=== PATIENT | male | born 1930 | race Caucasian/White ===

== ENCOUNTER → 2017-02-24 | Outpatient (CLI) | payer MEDICARE, OTHER ==
[2017-02-24 11:44] LABS: Basophils % (A) 1 %; CH 33.4; CHCM 31.3; Eosinophils # (A) 0.2 k/uL (0-0.7); Eosinophils % (A) 3 %; HCT 33.3 % (39.0-53.0); HDW 2.33; HGB 10.2 gm/dL (13.0-17.5); Luc # (Auto) 0.09; Luc % (Auto) 1; Lymphocytes # (A) 0.8 k/uL (1.0-4.8); Lymphocytes % (A) 11 %; MCHC 30.7 g/dL (31.0-37.0); MCV 107.4 fL (80.0-100.0); Macrocytosis Moderate; Mean Platelet Volume 7.3; Monocytes # (A) 0.6 k/uL (0-1.0); Monocytes % (A) 9 %; Neutrophils # (A) 5.1 k/uL (1.3-7.7); Neutrophils % (A) 75 %; RDW 13.3 % (11.5-15.5); WBC 6.8 k/uL (3.8-10.6); WBC (Perox) 7.23
[2017-02-24 11:59] LABS: Calcium 9.5 mg/dL (8.4-10.2); Potassium 5.1 mmol/L (3.5-5.1); Total Bilirubin 0.4 mg/dL (0.2-1.3); Total Protein 6.6 g/dL (6.3-8.2)
[2017-02-24 12:29] LABS: Prostate Specific Antigen 0.11 ng/mL (0.00-4.00)
== END | disposition home or self-care (01) ==
LOC: LABWHC1 09:57
PROVIDERS: ATTEND Physician Assistant Medical
DX: E78.5 Hyperlipidemia, unspecified (principal); D63.1 Anemia in chronic kidney disease; N18.3 Chronic kidney disease, stage 3 (moderate); I12.9 Hypertensive chronic kidney disease with stage 1 through stage 4 chronic kidney disease, or unspecified chronic kidney disease
CPT/HCPCS: 36415; 80053; 80061; 82607; 82728; 82746; 83540; 84153; 84443; 85025

== ENCOUNTER 2019-04-23 13:30 | Emergency (ER) | payer MEDICARE, OTHER ==
[2019-04-23 13:52] VITALS: RESP 18
--- NOTE | 2019-04-23 14:26 | ED ---
General Adult HPI - General Chief complaint: Shortness of Breath Stated complaint: Cough Time Seen by Provider: 04/23/19 13:45 Source: patient, RN notes reviewed, old records reviewed Mode of arrival: wheelchair Limitations: no limitations - History of Present Illness Initial comments: This is a 88-year-old male who presents emergency Department with a past history of atrial fibrillation. Patient comes in today because he told family members that he thinks he might have pneumonia again. Patient states hisbeen running quite a bit and occasionally he'll cough up some clear sputum. Patient denies any fever or chills. Patient states he is not short of breath even when he gets up and walks around. Patient states this is been ongoing for a few months. Patient states that he has some chest pain that is been constant for at least a month or 2. Patient denies any swelling to the legs or calf tenderness. Patient denies any lightheadedness or dizziness. - Related Data Previous Rx's Medication Instructions Recorded Loratadine [Claritin] 10 mg PO DAILY 7 Days tab 04/23/19 Allergies Allergy/AdvReac Type Severity Reaction Status Date / Time No Known Allergies Allergy Verified 04/23/19 13:52 Review of Systems ROS Statement: Those systems with pertinent positive or pertinent negative responses have been documented in the HPI. ROS Other: All systems not noted in ROS Statement are negative. Past Medical History Past Medical History: Atrial Fibrillation, Hypertension, Prostate Disorder History of Any Multi-Drug Resistant Organisms: MRSA Date of last positivie culture/infection: 2017 Past Surgical History: Appendectomy, Hernia Repair, Orthopedic Surgery, Prostate Surgery Additional Past Surgical History / Comment(s): knee surgery Past Psychological History: No Psychological Hx Reported Smoking Status: Former smoker Past Alcohol Use History: None Reported Past Drug Use History: None Reported General Exam - General Exam Comments Initial Comments: GENERAL: Patient is well-developed and well-nourished. Patient is nontoxic and well- hydrated and is in no acute distress. Patient's pulse ox is 100% on arrival into the room without oxygen ENT: Neck is soft and supple. No significant lymphadenopathy is noted. Oropharynx is clear. Moist mucous membranes. Neck has full range of motion without eliciting any pain. EYES: The sclera were anicteric and conjunctiva were pink and moist. Extraocular movements were intact and pupils were equal round and reactive to light. Eyelids were unremarkable. PULMONARY: Unlabored respirations. Good breath sounds bilaterally. No audible rales rhonchi or wheezing was noted. CARDIOVASCULAR: There is a regular rate and rhythm without any murmurs gallops or rubs. ABDOMEN: Soft and nontender with normal bowel sounds. SKIN: Skin is clear with no lesions or rashes and otherwise unremarkable. NEUROLOGIC: Patient is alert and oriented x3. Cranial nerves II through XII are grossly intact. Motor and sensory are also intact. Normal speech, volume and content. Symmetrical smile. MUSCULOSKELETAL: Normal extremities with adequate strength and full range of motion. No lower extremity swelling or edema. No calf tenderness. LYMPHATICS: No significant lymphadenopathy is noted PSYCHIATRIC: Normal psychiatric evaluation. Limitations: no limitations Course Vital Signs 04/23/19 04/23/19 13:42 14:36 Temperature 98 F Pulse Rate 67 96 Respiratory 18 18 Rate Blood Pressure 124/65 102/62 O2 Sat by Pulse 87 L 100 Oximetry Medical Decision Making - Medical Decision Making EKG shows sinus rhythm at 87 bpm [place] interval surrounding 200 QRS is 120 QT interval 354 QTC is 425. Patient is a right bundle ricarda block. Patient has no old EKG to compare to. Patient has Q waves in leads 3 and aVF - Lab Data Result diagrams: 04/23/19 14:15 04/23/19 14:15 Lab Results 04/23/19 04/23/19 04/23/19 Range/Units 14:15 14:15 14:15 WBC 7.8 (3.8-10.6) k/uL RBC 3.13 L (4.30-5.90) m/uL Hgb 10.3 L (13.0-17.5) gm/dL Hct 32.2 L (39.0-53.0) % MCV 103.0 H (80.0-100.0) fL MCH 32.8 (25.0-35.0) pg MCHC 31.9 (31.0-37.0) g/dL RDW 12.3 (11.5-15.5) % Plt Count 375 (150-450) k/uL Neutrophils % 86 % Lymphocytes % 8 % Monocytes % 4 % Eosinophils % 1 % Basophils % 0 % Neutrophils # 6.7 (1.3-7.7) k/uL Lymphocytes # 0.6 L (1.0-4.8) k/uL Monocytes # 0.3 (0-1.0) k/uL Eosinophils # 0.1 (0-0.7) k/uL Basophils # 0.0 (0-0.2) k/uL Macrocytosis Slight PT (9.0-12.0) sec INR (<1.2) APTT (22.0-30.0) sec D-Dimer (<0.60) mg/L FEU Sodium 141 (137-145) mmol/L Potassium 5.1 (3.5-5.1) mmol/L Chloride 110 H (98-107) mmol/L Carbon Dioxide 18 L (22-30) mmol/L Anion Gap 13 mmol/L BUN 58 H (9-20) mg/dL Creatinine 2.29 H (0.66-1.25) mg/dL Est GFR (CKD-EPI)AfAm 29 (>60 ml/min/1.73 sqM) Est GFR (CKD-EPI)NonAf 25 (>60 ml/min/1.73 sqM) Glucose 113 H (74-99) mg/dL Plasma Lactic Acid Santos 1.9 (0.7-2.0) mmol/L Calcium 9.4 (8.4-10.2) mg/dL Magnesium 2.1 (1.6-2.3) mg/dL Total Bilirubin 0.5 (0.2-1.3) mg/dL AST 19 (17-59) U/L ALT 9 (4-49) U/L Alkaline Phosphatase 103 (38-126) U/L Troponin I (0.000-0.034) ng/mL Total Protein 7.1 (6.3-8.2) g/dL Albumin 4.0 (3.5-5.0) g/dL 04/23/19 04/23/19 Range/Units 14:15 14:15 WBC (3.8-10.6) k/uL RBC (4.30-5.90) m/uL Hgb (13.0-17.5) gm/dL Hct (39.0-53.0) % MCV (80.0-100.0) fL MCH (25.0-35.0) pg MCHC (31.0-37.0) g/dL RDW (11.5-15.5) % Plt Count (150-450) k/uL Neutrophils % % Lymphocytes % % Monocytes % % Eosinophils % % Basophils % % Neutrophils # (1.3-7.7) k/uL Lymphocytes # (1.0-4.8) k/uL Monocytes # (0-1.0) k/uL Eosinophils # (0-0.7) k/uL Basophils # (0-0.2) k/uL Macrocytosis PT 10.0 (9.0-12.0) sec INR 1.0 (<1.2) APTT 24.0 (22.0-30.0) sec D-Dimer 0.60 H (<0.60) mg/L FEU Sodium (137-145) mmol/L Potassium (3.5-5.1) mmol/L Chloride (98-107) mmol/L Carbon Dioxide (22-30) mmol/L Anion Gap mmol/L BUN (9-20) mg/dL Creatinine (0.66-1.25) mg/dL Est GFR (CKD-EPI)AfAm (>60 ml/min/1.73 sqM) Est GFR (CKD-EPI)NonAf (>60 ml/min/1.73 sqM) Glucose (74-99) mg/dL Plasma Lactic Acid Santos (0.7-2.0) mmol/L Calcium (8.4-10.2) mg/dL Magnesium (1.6-2.3) mg/dL Total Bilirubin (0.2-1.3) mg/dL AST (17-59) U/L ALT (4-49) U/L Alkaline Phosphatase (38-126) U/L Troponin I 0.029 (0.000-0.034) ng/mL Total Protein (6.3-8.2) g/dL Albumin (3.5-5.0) g/dL Disposition Clinical Impression: Allergic rhinitis Disposition: HOME SELF-CARE Condition: Good Instructions (If sedation given, give patient instructions): Allergic Rhinitis (ED) Prescriptions: Loratadine [Claritin] 10 mg PO DAILY 7 Days tab Is patient prescribed a controlled substance at d/c from ED?: No Referrals: Dev Ramos MD [Primary Care Provider] - 1-2 days Time of Disposition: 16:34
[2019-04-23 14:45] LABS: Basophils % (A) 0 %; Eosinophils # (A) 0.1 k/uL (0-0.7); Eosinophils % (A) 1 %; HCT 32.2 % (39.0-53.0); HGB 10.3 gm/dL (13.0-17.5); Lymphocytes # (A) 0.6 k/uL (1.0-4.8); Lymphocytes % (A) 8 %; MCH 32.8 pg (25.0-35.0); MCHC 31.9 g/dL (31.0-37.0); Macrocytosis Slight; Monocytes # (A) 0.3 k/uL (0-1.0); Monocytes % (A) 4 %; Neutrophils # (A) 6.7 k/uL (1.3-7.7); Neutrophils % (A) 86 %; Platelet Count 375 k/uL (150-450); RBC 3.13 m/uL (4.30-5.90); RDW 12.3 % (11.5-15.5); WBC 7.8 k/uL (3.8-10.6)
--- NOTE | 2019-04-23 14:50 | XR ---
EXAMINATION TYPE: XR chest 2V DATE OF EXAM: 04/23/2019 COMPARISON: 04/23/2019 HISTORY: Difficulty breathing. TECHNIQUE: Frontal and lateral views of the chest are obtained. FINDINGS: Pulmonary hyperinflation relates underlying COPD. There is no focal air space opacity, pleu ral effusion, or pneumothorax seen. The cardiac silhouette size is within normal limits. There is to rtuosity of the descending thoracic aorta. The osseous structures are intact. Arthropathy of the lef t shoulder is advanced and mild degenerative change of the spine are seen. Diffuse osseous deminerali zation. IMPRESSION: No acute cardiopulmonary process. Underlying COPD.
[2019-04-23 14:54] LABS: Calcium 9.4 mg/dL (8.4-10.2); Magnesium 2.1 mg/dL (1.6-2.3); Potassium 5.1 mmol/L (3.5-5.1); Total Bilirubin 0.5 mg/dL (0.2-1.3); Total Protein 7.1 g/dL (6.3-8.2)
[2019-04-23 15:00] LABS: D-Dimer 0.6 mg/L FEU (<0.60)
[2019-04-23 17:06] VITALS: BP 122/78; PULSE 86; TEMP 97.6
== END 2019-04-23 17:06 | disposition home or self-care (01) ==
LOC: EC 13:30
DX: J30.9 Allergic rhinitis, unspecified (principal); I45.10 Unspecified right bundle-branch block; R07.9 Chest pain, unspecified; Z87.891 Personal history of nicotine dependence; Z86.14 Personal history of Methicillin resistant Staphylococcus aureus infection
CPT/HCPCS: 36415; 71046; 80053; 83605; 83735; 84484; 85025; 85379; 85610; 85730; 93005; 99285

== ENCOUNTER 2019-05-01 10:45 | Inpatient (IN) | payer OTHER, MEDICARE ==
[2019-05-01] MEDS ORDERED: SODIUM CHLORIDE 0.9% 1,000 ML IV STA ×2 (11:11)
--- NOTE | 2019-05-01 11:14 | ED ---
General Adult HPI - General Chief complaint: Recheck/Abnormal Lab/Rx Stated complaint: abnormal lab/kidney function Time Seen by Provider: 05/01/19 10:54 Source: patient, family, RN notes reviewed, old records reviewed Mode of arrival: wheelchair Limitations: no limitations - History of Present Illness Initial comments: This Patient is a pleasant 88-year-old male with chief complaint of abnormal lab values. Patient reports that he had blood work drawn yesterday at the OR and was called due to abnormal kidney function and elevated potassium level. Patient reports that he has no symptoms at this time. He reports he still is producing urine and had normal bowel movement today. He denies any pain with urination or dark or cloudy appearance. Patient states that he's had no fevers or chills. He was recently seen in the emergency department for cough and upper respiratory congestion. She reports that those symptoms have been resolving. Denies any lower extremity swelling. Denies any palpitations or chest pain. - Related Data Previous Rx's Medication Instructions Recorded Loratadine [Claritin] 10 mg PO DAILY 7 Days tab 04/23/19 Allergies Allergy/AdvReac Type Severity Reaction Status Date / Time No Known Allergies Allergy Verified 05/01/19 10:49 Review of Systems ROS Statement: Those systems with pertinent positive or pertinent negative responses have been documented in the HPI. ROS Other: All systems not noted in ROS Statement are negative. Past Medical History Past Medical History: Atrial Fibrillation, Hypertension, Prostate Disorder History of Any Multi-Drug Resistant Organisms: MRSA Date of last positivie culture/infection: 2017 Past Surgical History: Appendectomy, Hernia Repair, Orthopedic Surgery, Prostate Surgery Additional Past Surgical History / Comment(s): knee surgery Past Psychological History: No Psychological Hx Reported Smoking Status: Former smoker Past Alcohol Use History: None Reported Past Drug Use History: None Reported General Exam - General Exam Comments Initial Comments: 88-year-old male. Alert and oriented 3. Limitations: no limitations General appearance: alert, in no apparent distress Head exam: Present: atraumatic, normocephalic, normal inspection Eye exam: Present: normal appearance, PERRL, EOMI. Absent: scleral icterus, conjunctival injection, periorbital swelling ENT exam: Present: normal exam, mucous membranes moist Neck exam: Present: normal inspection. Absent: tenderness, meningismus, lymphadenopathy Respiratory exam: Present: normal lung sounds bilaterally. Absent: respiratory distress, wheezes, rales, rhonchi, stridor Cardiovascular Exam: Present: regular rate, normal rhythm, normal heart sounds. Absent: systolic murmur, diastolic murmur, rubs, gallop, clicks GI/Abdominal exam: Present: soft, normal bowel sounds. Absent: distended, tenderness, guarding, rebound, rigid Extremities exam: Present: normal inspection, full ROM, normal capillary refill. Absent: tenderness, pedal edema, joint swelling, calf tenderness Back exam: Present: normal inspection Neurological exam: Present: alert, oriented X3, CN II-XII intact Psychiatric exam: Present: normal affect, normal mood Skin exam: Present: warm, dry, intact, normal color. Absent: rash Course Vital Signs 05/01/19 05/01/19 10:49 13:00 Temperature 97.5 F L 97.1 F L Pulse Rate 106 H 83 Respiratory 18 17 Rate Blood Pressure 127/70 136/79 O2 Sat by Pulse 99 100 Oximetry Medical Decision Making - Medical Decision Making A 8-year-old male presents today for evaluation for abnormal lab results done by Dr. sher. He was called for elevated potassium. Patient's labs today show potassium of 5.3. He does have a decline in his renal function. Creatinine has increased to 2.6. Patient's urinalysis does show some concern for infection with numerous red blood cells and white blood cells. Urine culture be completed. Patient started on IV Rocephin at this time. I discussed case with Dr. Hutchison who discussed the case with his PCP Dr. Ramos. He recommended the Patient be admitted for further hydration and antibiotics. Patient's case was discussed with Dr. Palumbo. - Lab Data Result diagrams: 05/01/19 11:43 05/01/19 11:43 Lab Results 05/01/19 05/01/19 05/01/19 Range/Units 11:43 11:43 12:33 WBC 7.0 (3.8-10.6) k/uL RBC 2.90 L (4.30-5.90) m/uL Hgb 9.8 L (13.0-17.5) gm/dL Hct 29.9 L (39.0-53.0) % MCV 103.1 H (80.0-100.0) fL MCH 33.6 (25.0-35.0) pg MCHC 32.6 (31.0-37.0) g/dL RDW 12.5 (11.5-15.5) % Plt Count 357 (150-450) k/uL Neutrophils % 80 % Lymphocytes % 8 % Monocytes % 7 % Eosinophils % 3 % Basophils % 0 % Neutrophils # 5.6 (1.3-7.7) k/uL Lymphocytes # 0.6 L (1.0-4.8) k/uL Monocytes # 0.5 (0-1.0) k/uL Eosinophils # 0.2 (0-0.7) k/uL Basophils # 0.0 (0-0.2) k/uL Macrocytosis Slight Sodium 139 (137-145) mmol/L Potassium 5.3 H (3.5-5.1) mmol/L Chloride 113 H (98-107) mmol/L Carbon Dioxide 16 L (22-30) mmol/L Anion Gap 10 mmol/L BUN 61 H (9-20) mg/dL Creatinine 2.75 H (0.66-1.25) mg/dL Est GFR (CKD-EPI)AfAm 23 (>60 ml/min/1.73 sqM) Est GFR (CKD-EPI)NonAf 20 (>60 ml/min/1.73 sqM) Glucose 93 (74-99) mg/dL Calcium 9.1 (8.4-10.2) mg/dL Total Bilirubin 0.6 (0.2-1.3) mg/dL AST 19 (17-59) U/L ALT 9 (4-49) U/L Alkaline Phosphatase 102 (38-126) U/L Total Protein 6.9 (6.3-8.2) g/dL Albumin 3.5 (3.5-5.0) g/dL Urine Color Yellow Urine Appearance Turbid (Clear) Urine pH 6.0 (5.0-8.0) Ur Specific [place] 1.018 (1.001-1.035) Urine Protein 2+ H (Negative) Urine Glucose (UA) Negative (Negative) Urine Ketones Negative (Negative) Urine Blood Moderate H (Negative) Urine Nitrite Negative (Negative) Urine Bilirubin Negative (Negative) Urine Urobilinogen <2.0 (<2.0) mg/dL Ur Leukocyte Esterase Large H (Negative) Urine RBC 131 H (0-5) /hpf Urine WBC >182 H (0-5) /hpf Urine WBC Clumps Many H (None) /hpf Ur Squamous Epith Cells 3 (0-4) /hpf Urine Bacteria Many H (None) /hpf 05/01/19 11:33 EKG shows normal sinus rhythm with bundle-branch block. Possible inferior infarct age undetermined. Ventricular rate of 92 bpm. Intervals 200 ms. QRS duration is 124 ms. QT QTc is 370/457 ms. Disposition Clinical Impression: SAI (acute kidney injury), UTI (urinary tract infection) Disposition: ADMITTED IP TO THIS HOSP Condition: Stable Is patient prescribed a controlled substance at d/c from ED?: No Referrals: Dev Ramos MD [Primary Care Provider] - 1-2 days Time of Disposition: 13:34
[2019-05-01 12:07] LABS: Basophils % (A) 0 %; Eosinophils # (A) 0.2 k/uL (0-0.7); Eosinophils % (A) 3 %; HCT 29.9 % (39.0-53.0); HGB 9.8 gm/dL (13.0-17.5); Lymphocytes # (A) 0.6 k/uL (1.0-4.8); Lymphocytes % (A) 8 %; MCH 33.6 pg (25.0-35.0); MCHC 32.6 g/dL (31.0-37.0); MCV 103.1 fL (80.0-100.0); Macrocytosis Slight; Mean Platelet Volume 7.2; Monocytes # (A) 0.5 k/uL (0-1.0); Monocytes % (A) 7 %; Neutrophils # (A) 5.6 k/uL (1.3-7.7); Neutrophils % (A) 80 %; Platelet Count 357 k/uL (150-450); RDW 12.5 % (11.5-15.5)
[2019-05-01 12:12] LABS: Albumin 3.5 g/dL (3.5-5.0); Calcium 9.1 mg/dL (8.4-10.2); Potassium 5.3 mmol/L (3.5-5.1); Total Bilirubin 0.6 mg/dL (0.2-1.3); Total Protein 6.9 g/dL (6.3-8.2)
[2019-05-01 12:52] LABS: Appearance,Urine Turbid (Clear); Bacteria,Urine Many /hpf; Bilirubin,Urine Negative (Negative); Blood,Urine Moderate (Negative); Color,Urine Yellow; Glucose,Urine (UA) Negative (Negative); Ketones,Urine Negative (Negative); Leukocyte Esterase,Urine Large (Negative); Nitrite,Urine Negative (Negative); Protein,Urine 2+ (Negative); RBC,Urine 131 /hpf (0-5); Specific Gravity,Urine 1.018 (1.001-1.035); Squamous Epithelial Cell,Urine 3 /hpf (0-4); Urobilinogen,Urine <2.0 mg/dL (<2.0); WBC,Urine >182 /hpf (0-5)
[2019-05-01] MEDS ORDERED: cefTRIAXone IN SWFI 1,000 MG/10 ML SYRINGE IVP STA (13:00)
[2019-05-01] MEDS ORDERED: ONDANSETRON 4 MG/2 ML VIAL IVP PRN (13:34)
[2019-05-01] MEDS ORDERED: oxyCODONE-APAP 5-325MG 1 EACH TAB PO PRN (13:34)
[2019-05-01] MEDS ORDERED: ACETAMINOPHEN TAB 325 MG TAB PO PRN (13:34)
[2019-05-01] MEDS ORDERED: NALOXONE 0.4 MG/ML 1 ML VIAL IV PRN (13:34)
[2019-05-01] MEDS ORDERED: HYDROcodone/APAP 5-325MG 1 EACH TAB PO PRN (13:34)
--- NOTE | 2019-05-01 14:22 | US ---
EXAMINATION TYPE: US renals and bladder DATE OF EXAM: 05/01/2019 COMPARISON: NONE CLINICAL HISTORY: UTI, SAI. EXAM MEASUREMENTS: Right Kidney: 12.3 x 6.7 x 6.0 cm Left Kidney: 11.6 x 6.1 x 5.6 cm Right Kidney: severe hydronephrosis is present, probable cyst measuring 3.0 x 2.6 x 3.0cm, loss of normal parenchyma Left Kidney: severe hydronephrosis, loss of normal parenchyma Bladder: There is wall thickening No ascites IMPRESSION: Severe bilateral hydronephrosis, indeterminate bladder wall thickening
[2019-05-01] MEDS: SODIUM CHLORIDE 0.9% 1,000 ML IV SCH ×2 (15:21→21:19)
[2019-05-02] MEDS: METOPROLOL TARTRATE 25 MG TAB PO SCH ×2 (10:07→20:45)
[2019-05-02] MEDS: FLECAINIDE 50 MG TAB PO SCH ×2 (10:26→20:46)
[2019-05-02] MEDS: SODIUM CHLORIDE 0.9% 1,000 ML IV SCH ×2 (10:27→17:04)
[2019-05-02 11:15] LABS: Calcium 7.9 mg/dL (8.4-10.2); Potassium 5.3 mmol/L (3.5-5.1)
[2019-05-02 11:28] VITALS: BMI 19.8
--- NOTE | 2019-05-02 15:06 | P.HPIM ---
History of Present Illness H&P Date: 05/02/19 Chief Complaint: Abnormal labs This is an 88-year-old male patient of Dr. Ramos with past medical history of atrial fibrillation, hypertension, chronic kidney disease stage III, kidney stones, frequent urinary tract infections, benign prostatic hypertrophy, prostate cancer, previous history of urinary retention requiring [facility] catheter in the past. Patient is followed with a urologist in the past when he lived in [place] but none recently. Patient states that he has had increasing problems with urinary retention and urinary incontinence and utilizing to pull ups at the same time. He denies having any fever or chills. He denies having any dysuria or change in the color of his urine. He states he is tired. He was seen at the [place] [facility] and and due to abnormal lab reports with abnormal renal function and elevated potassium, patient was instructed to come in the hospital for further evaluation. Patient presented to [facility] emergency center for evaluation. Patient was afebrile and vital signs stable, hemoglobin 9.8, WBC 7, BUN 61 and creatinine 2.75, potassium 5.3, chloride 113, CO2 16, blood sugar 93. Urinalysis turbid, blood moderate, leukoesterase large, WBCs greater than 182, RBCs 131, WBC cults many, bacteria many. EKG was a sinus rhythm with bundle branch block. Renal ultrasound revealed bilateral severe hydronephrosis. Patient was admitted to the [facility] floor consults in place with urology. Review of Systems Constitutional: Reports fatigue, Reports poor appetite, Reports weakness, Denies anorexia, Denies chills, Denies fever, Denies lethargy, Denies malaise Eyes: denies blurred vision, denies pain Ears, nose, mouth and throat: Denies headache, Denies sore throat, Denies vertigo Cardiovascular: Denies chest pain, Denies decreased exercise tolerance, Denies dyspnea on exertion, Denies leg edema, Denies lightheadedness, Denies shortness of breath, Denies syncope Respiratory: Denies cough, Denies cough with sputum, Denies dyspnea, Denies excessive sputum, Denies hemoptysis, Denies home oxygen, Denies respiratory infections, Denies wheezing Gastrointestinal: Denies abdominal pain, Denies bloating, Denies diarrhea, Denies loss of appetite, Denies nausea, Denies vomiting Genitourinary: Reports incontinence, Reports urinary frequency, Reports urinary hesitancy, Reports urinary retention, Denies dysuria, Denies flank pain, Denies hematuria Musculoskeletal: Reports muscle weakness, Denies frequent falls, Denies gait dysfunction, Denies myalgias Integumentary: Denies pruritus, Denies rash, Denies wounds Neurological: Denies change in mentation, Denies change in speech, Denies numbness, Denies weakness Psychiatric: Denies anxiety, Denies depression Endocrine: Denies fatigue, Denies weight change Past Medical History Past Medical History: Atrial Fibrillation, Cancer, Hypertension, Prostate Disorder, Renal Disease Additional Past Medical History / Comment(s): Prosate cancer with radiation, kidney stones passed on his own and surgically removed, UTIs, chronic low back pain, occasional sinus problems. History of Any Multi-Drug Resistant Organisms: MRSA Date of last positivie culture/infection: 2017 MDRO Source:: urine? family/pt unsure Past Surgical History: Appendectomy, Hernia Repair, Orthopedic Surgery Additional Past Surgical History / Comment(s): Lithotripsy, hiatal hernia repair, L knee open surgery to "clean it out", colonoscopy, circumcism later in life d/t UTIs. Past Anesthesia/Blood Transfusion Reactions: No Reported Reaction Past Psychological History: No Psychological Hx Reported Additional Psychological History / Comment(s): Pt resides with his son. He uses a cane to ambulate. He no longer drives, his son takes him to appts. Son states that he, himself was recently hospitalized for a lengthy time and when he got back home, pt's meds were "screwed up". Smoking Status: Former smoker Past Alcohol Use History: None Reported Additional Past Alcohol Use History / Comment(s): Patient was a smoker one pack per day for 40 years and quit 35 years ago. He denies any alcohol use. Patient lives with his son. He uses a cane for ambulation. He denies any recent falls. Past Drug Use History: None Reported - Past Family History Father Family Medical History: Hypertension Additional Family Medical History / Comment(s): Father at age 82 from old age. Mother Additional Family Medical History / Comment(s): Mother at age 82 and was in a coma at the time. Patient is unsure of cause of her or causative coma. Brother(s) Additional Family Medical History / Comment(s): Patient has 1 brother that is . He is not know any of his medical history. Patient does not have any sisters. Patient has 4 daughters and 4 sons with no major medical problems. Medications and Allergies Home Medications Medication Instructions Recorded Confirmed Type Cranberry Fruit Extract [Cranberry] 200 mg PO DAILY 05/01/19 05/01/19 History Cyanocobalamin [Vitamin B-12] 500 mcg PO DAILY 05/01/19 05/01/19 History Flecainide Acetate 50 mg PO BID 05/01/19 05/01/19 History Magnesium Oxide 400 mg PO DAILY 05/01/19 05/01/19 History Metoprolol Tartrate [Lopressor] 25 mg PO BID 05/01/19 05/01/19 History Tamsulosin [Flomax] 0.4 mg PO DAILY 05/01/19 05/01/19 History Allergies Allergy/AdvReac Type Severity Reaction Status Date / Time No Known Allergies Allergy Verified 05/01/19 14:41 Physical Exam Vitals: Vital Signs Temp Pulse Pulse Pulse Resp BP BP 05/02/19 04:37 98.2 F 83 16 05/01/19 20:37 98.4 F 84 16 156/66 05/01/19 15:25 97.5 F L 55 L 16 158/93 05/01/19 13:00 97.1 F L 83 17 136/79 05/01/19 10:49 97.5 F L 106 H 18 127/70 BP Pulse Ox 05/02/19 04:37 107/49 96 05/01/19 20:37 99 05/01/19 15:25 98 05/01/19 13:00 100 05/01/19 10:49 99 Intake and Output 05/01/19 05/02/19 05/02/19 22:59 06:59 14:59 Output Total 50 Balance -50 Output: Urine 50 Other: Voiding Method Toilet Urinal # Voids 0 Weight 58.967 kg Gen: This is an 88-year-old thin male. Patient is resting bed appears comfortable and in no acute distress. HEENT: Head is atraumatic, normocephalic. Pupils equal, round. Sclerae is anicteric. NECK: Supple. No JVD. No lymphadenopathy. No thyromegaly. LUNGS: Clear to auscultation. No wheezes or rhonchi. No intercostal retractions. HEART: Regular rate and rhythm. No murmur. ABDOMEN: Soft. Bowel sounds are present. No masses. No tenderness. No flank tenderness. EXTREMITIES: No pedal edema. No calf tenderness. Dorsalis pedis palpable bilaterally. NEUROLOGICAL: Patient is awake, alert and oriented x3. Cranial nerves 2 through 12 are grossly intact. Results CBC & Chem 7: 05/01/19 11:43 05/02/19 10:34 Labs: Abnormal Lab Results - Last 24 Hours (Table) 05/01/19 05/01/19 05/01/19 Range/Units 11:43 11:43 12:33 RBC 2.90 L (4.30-5.90) m/uL Hgb 9.8 L (13.0-17.5) gm/dL Hct 29.9 L (39.0-53.0) % MCV 103.1 H (80.0-100.0) fL Lymphocytes # 0.6 L (1.0-4.8) k/uL Potassium 5.3 H (3.5-5.1) mmol/L Chloride 113 H (98-107) mmol/L Carbon Dioxide 16 L (22-30) mmol/L BUN 61 H (9-20) mg/dL Creatinine 2.75 H (0.66-1.25) mg/dL Plasma Lactic Acid Santos (0.7-2.0) mmol/L Urine Protein 2+ H (Negative) Urine Blood Moderate H (Negative) Ur Leukocyte Esterase Large H (Negative) Urine RBC 131 H (0-5) /hpf Urine WBC >182 H (0-5) /hpf Urine WBC Clumps Many H (None) /hpf Urine Bacteria Many H (None) /hpf 05/01/19 Range/Units 13:25 RBC (4.30-5.90) m/uL Hgb (13.0-17.5) gm/dL Hct (39.0-53.0) % MCV (80.0-100.0) fL Lymphocytes # (1.0-4.8) k/uL Potassium (3.5-5.1) mmol/L Chloride (98-107) mmol/L Carbon Dioxide (22-30) mmol/L BUN (9-20) mg/dL Creatinine (0.66-1.25) mg/dL Plasma Lactic Acid Satnos 0.6 L (0.7-2.0) mmol/L Urine Protein (Negative) Urine Blood (Negative) Ur Leukocyte Esterase (Negative) Urine RBC (0-5) /hpf Urine WBC (0-5) /hpf Urine WBC Clumps (None) /hpf Urine Bacteria (None) /hpf Microbiology - Last 24 Hours (Table) 05/01/19 12:33 Urine Culture - Preliminary Urine,Voided Thrombosis Risk Factor Assmnt - DVT/VTE Prophylaxis DVT/VTE Prophylaxis: Pharmacologic Prophylaxis ordered - Choose All That Apply Each Risk Factor Represents 3 Points: Age 75 years or older Thrombosis Risk Factor Assessment Total Risk Factor Score: 3 Thrombosis Risk Factor Assessment Level: Moderate Risk Assessment and Plan Plan: 1. Acute kidney injury secondary to severe bilateral hydronephrosis. Patient is currently on IV fluids at 100 mL per hour, consult with urology, continue Flomax 0.4 mg daily. Bladder scan, continue ceftriaxone, urine culture in progress. 2. History of prostate cancer, benign prostatic hypertrophy, patient previously had a [employer] catheter but none for years. Continue Flomax. 3. Atrial fibrillation, paroxysmal. Patient has been resumed on flecainide 50 mg twice daily, Lopressor 25 mg twice daily. Patient is not on anticoagulation. 4. Hypertension. Continue flecainide and Lopressor. 5. DVT prophylaxis. Heparin subcu. 6. GI prophylaxis. Pepcid. Patient will be admitted to the hospital for a minimum of 2 night stay. Discharge plan: To be determined. PT and OT. Impression and plan of care have been directed as dictated by the signing physician. Tena Silva nurse practitioner acting as scribe for signing physician.
--- NOTE | 2019-05-02 16:09 | P.GSCN ---
History of Present Illness Consult date: 05/02/19 Reason for Consult: Bilateral hydronephrosis History of present illness: Mr Franco is a 88-year-old male patient admitted to the hospital with acute kidney injury. Of note he has history of prostate cancer, per patient treated with radiation. He underwent Renal ultrasound revealed bilateral severe hydronephrosis. Of note he has have history of urinary retention requiring Kaiser catheter placement in the past. His PVR is 250 mL. He denies any obstructive voiding symptoms at baseline but indicates used to take Flomax in the past and he is no longer taking it. He is unsure why he stopped taking it. He does complain of urinary incontinence and is currently being managed by diapers. Denies any history of gross hematuria or kidney stones. He has seen Dr. Diana in the past Review of Systems - Constitutional Denies chills, Denies fever - Cardiovascular Reports leg edema, Denies shortness of breath - Gastrointestinal Denies abdominal pain, Denies nausea, Denies vomiting - Genitourinary Reports incontinence, Denies dysuria, Denies hematuria - Psychiatric Denies anxiety, Denies confusion - Endocrine Denies fatigue, Denies weight change Past Medical History Past Medical History: Atrial Fibrillation, Cancer, Hypertension, Prostate Disorder, Renal Disease Additional Past Medical History / Comment(s): Prosate cancer with radiation, kidney stones passed on his own and surgically removed, UTIs, chronic low back pain, occasional sinus problems. History of Any Multi-Drug Resistant Organisms: MRSA Year Discovered:: 2018 MDRO Source:: urine? family/pt unsure Past Surgical History: Appendectomy, Hernia Repair, Orthopedic Surgery Additional Past Surgical History / Comment(s): Lithotripsy, hiatal hernia repair, L knee open surgery to "clean it out", colonoscopy, circumcism later in life d/t UTIs. Past Anesthesia/Blood Transfusion Reactions: No Reported Reaction Past Psychological History: No Psychological Hx Reported Additional Psychological History / Comment(s): Pt resides with his son. He uses a cane to ambulate. He no longer drives, his son takes him to appts. Son states that he, himself was recently hospitalized for a lengthy time and when he got back home, pt's meds were "screwed up". Smoking Status: Former smoker Past Alcohol Use History: None Reported Additional Past Alcohol Use History / Comment(s): Patient was a smoker one pack per day for 40 years and quit 35 years ago. He denies any alcohol use. Patient lives with his son. He uses a cane for ambulation. He denies any recent falls. Past Drug Use History: None Reported - Past Family History Father Family Medical History: Hypertension Additional Family Medical History / Comment(s): Father at age 82 from old age. Mother Additional Family Medical History / Comment(s): Mother at age 82 and was in a coma at the time. Patient is unsure of cause of her or causative coma. Brother(s) Additional Family Medical History / Comment(s): Patient has 1 brother that is . He is not know any of his medical history. Patient does not have any sisters. Patient has 4 daughters and 4 sons with no major medical problems. Medications and Allergies Home Medications Medication Instructions Recorded Confirmed Type Cranberry Fruit Extract [Cranberry] 200 mg PO DAILY 05/01/19 05/01/19 History Cyanocobalamin [Vitamin B-12] 500 mcg PO DAILY 05/01/19 05/01/19 History Flecainide Acetate 50 mg PO BID 05/01/19 05/01/19 History Magnesium Oxide 400 mg PO DAILY 05/01/19 05/01/19 History Metoprolol Tartrate [Lopressor] 25 mg PO BID 05/01/19 05/01/19 History Tamsulosin [Flomax] 0.4 mg PO DAILY 05/01/19 05/01/19 History Allergies Allergy/AdvReac Type Severity Reaction Status Date / Time No Known Allergies Allergy Verified 05/01/19 14:41 Surgical - Exam Vital Signs Temp Pulse Resp BP Pulse Ox 97.5 F L 106 H 18 127/70 99 05/01/19 10:49 05/01/19 10:49 05/01/19 10:49 05/01/19 10:49 05/01/19 10:49 - General no distress, no pain - Respiratory normal expansion, normal respiratory effort - Abdomen Abdomen: soft, non tender, no distended - Neurologic normal sensation, no memory loss - Psychiatric oriented to time, oriented to person, oriented to place Results - Labs 05/01/19 11:43 05/02/19 10:34 Abnormal Lab Results - Last 24 Hours (Table) 05/02/19 Range/Units 10:34 Potassium 5.3 H (3.5-5.1) mmol/L Chloride 116 H (98-107) mmol/L Carbon Dioxide 14 L (22-30) mmol/L BUN 52 H (9-20) mg/dL Creatinine 2.32 H (0.66-1.25) mg/dL Glucose 104 H (74-99) mg/dL Calcium 7.9 L (8.4-10.2) mg/dL Microbiology - Last 24 Hours (Table) 05/01/19 13:25 Blood Culture - Preliminary Blood No Growth after 24 hours 05/01/19 12:33 Urine Culture - Preliminary Urine,Voided Diabetes panel 05/02/19 Range/Units 10:34 Sodium 137 (137-145) mmol/L Potassium 5.3 H (3.5-5.1) mmol/L Chloride 116 H (98-107) mmol/L Carbon Dioxide 14 L (22-30) mmol/L BUN 52 H (9-20) mg/dL Creatinine 2.32 H (0.66-1.25) mg/dL Glucose 104 H (74-99) mg/dL Calcium 7.9 L (8.4-10.2) mg/dL Calcium panel 05/02/19 Range/Units 10:34 Calcium 7.9 L (8.4-10.2) mg/dL Pituitary panel 05/02/19 Range/Units 10:34 Sodium 137 (137-145) mmol/L Potassium 5.3 H (3.5-5.1) mmol/L Chloride 116 H (98-107) mmol/L Carbon Dioxide 14 L (22-30) mmol/L BUN 52 H (9-20) mg/dL Creatinine 2.32 H (0.66-1.25) mg/dL Glucose 104 H (74-99) mg/dL Calcium 7.9 L (8.4-10.2) mg/dL Adrenal panel 05/02/19 Range/Units 10:34 Sodium 137 (137-145) mmol/L Potassium 5.3 H (3.5-5.1) mmol/L Chloride 116 H (98-107) mmol/L Carbon Dioxide 14 L (22-30) mmol/L BUN 52 H (9-20) mg/dL Creatinine 2.32 H (0.66-1.25) mg/dL Glucose 104 H (74-99) mg/dL Calcium 7.9 L (8.4-10.2) mg/dL Assessment and Plan Assessment: This is a 88-year-old male admitted to the hospital with acute kidney injury. Renal bladder ultrasound demonstrated bilateral hydronephrosis. This PVR is elevated at 250 mL. Of note he has history of prostate cancer, treated with radiation in the past. He also has history of LUTS, and previous history of urinary retention Plan: -Place Kaiser catheter -Continue Flomax -We'll obtain a CT abdomen and pelvis without contrast, to assess for the point of obstruction
--- NOTE | 2019-05-02 18:10 | CT ---
EXAMINATION TYPE: CT renal stones wo con DATE OF EXAM: 05/02/2019 COMPARISON: None HISTORY: stones, hydronephrosis CT DLP: 897 mGycm Automated exposure control for dose reduction was used. Multiple axial sections were obtained from the diaphragm to the floor the pelvis without contrast. There is some pleural thickening and atelectasis left lung base. Heart size is normal. There is no pe ricardial effusion. There is atherosclerotic vascular calcification. There is coronary artery calcifi cation. There is no pericardial effusion. There is mild hiatal hernia. There is small right pleural effusion. There are multiple calcified gallstones. Liver shows no focal defect. Spleen is intact. There is no evidence of pancreatic mass. The bile ducts are not dilated. Kidneys show severe bilateral hydronephrosis. There are multiple renal cortical cysts bilaterally marquez t measure up to 3.5 cm. There is bilateral hydroureter. There is Kaiser catheter in the urinary bladde r. Bladder is almost empty. There is no inguinal hernia. There is retained fecal material in the rect um that measures almost 7 cm. There is prostatic calcification. There is multilevel spondylotic changes in the lumbar spine. There is no compression fracture. There is disc space narrowing and vacuum disc with spur formation. The bony pelvis appears intact. There is no evidence of free air. There is no mesenteric edema. There is no ascites. IMPRESSION: Bilateral basilar pulmonary infiltrates and atelectasis and pleural thickening. The Cholelithiasis. Moderate bilateral hydronephrosis with renal atrophy. Bilateral hydroureter. No obstructing bladder mass identified. Rectal fecal impaction.
[2019-05-02] MEDS: HEPARIN SODIUM,PORCINE 5,000 UNIT/ML 1 ML VIAL SQ SCH (20:46)
[2019-05-02] MEDS: MELATONIN 5 MG TABLET PO SCH (23:23)
[2019-05-03] MEDS: SODIUM CHLORIDE 0.9% 1,000 ML IV SCH ×2 (02:10→07:13)
[2019-05-03] MEDS: FLECAINIDE 50 MG TAB PO SCH ×2 (07:11→22:49)
[2019-05-03] MEDS: TAMSULOSIN 0.4 MG CAP.ER.24H PO SCH (07:11)
[2019-05-03] MEDS: CYANOCOBALAMIN 500 MCG TAB PO SCH (07:11)
[2019-05-03] MEDS: METOPROLOL TARTRATE 25 MG TAB PO SCH ×2 (07:11→22:10)
[2019-05-03] MEDS: HEPARIN SODIUM,PORCINE 5,000 UNIT/ML 1 ML VIAL SQ SCH ×2 (07:12→22:12)
[2019-05-03] MEDS: FAMOTIDINE 20 MG TAB PO SCH (07:12)
[2019-05-03 08:32] LABS: Calcium 8.3 mg/dL (8.4-10.2)
[2019-05-03 08:39] LABS: Potassium 5.9 mmol/L (3.5-5.1)
--- NOTE | 2019-05-03 11:49 | P.PN ---
Subjective Progress Note Date: 05/03/19 This is an 88-year-old male patient of Dr. Ramos with past medical history of atrial fibrillation, hypertension, chronic kidney disease stage III, kidney stones, frequent urinary tract infections, benign prostatic hypertrophy, prostate cancer, previous history of urinary retention requiring Garza catheter in the past. Patient is followed with a urologist in the past when he lived in [place] but none recently. Patient states that he has had increasing problems with urinary retention and urinary incontinence and utilizing to pull ups at the same time. He denies having any fever or chills. He denies having any dysuria or change in the color of his urine. He states he is tired. He was seen at the [facility] and and due to abnormal lab reports with abnormal renal function and elevated potassium, patient was instructed to come in the hospital for further evaluation. Patient presented to [facility] emergency center for evaluation. Patient was afebrile and vital signs stable, hemoglobin 9.8, WBC 7, BUN 61 and creatinine 2.75, potassium 5.3, chloride 113, CO2 16, blood sugar 93. Urinalysis turbid, blood moderate, leukoesterase large, WBCs greater than 182, RBCs 131, WBC cults many, bacteria many. EKG was a sinus rhythm with bundle branch block. Renal ultrasound revealed bilateral severe hydronephrosis. Patient was admitted to the [facility] floor consults in place with urology. 05/03: Patient has been seen by urology and CAT scan renal has been ordered which showed moderate bilateral hydronephrosis with renal atrophy. No mass. Rectal fecal impaction. Patient has had a Garza catheter placed with blood-tinged and mucus return. Patient has been afebrile, heart rate 58, blood pressure 113/48, pulse ox 96% on room air. Sodium 138, potassium 5.9, chloride 118, CO2 14, BUN 45 creatinine 2.05. Urine culture strep agalactia group B. Blood culture no growth. Await further recommendations for him urology. Patient is complaining of insomnia and melatonin added. Review of Systems Constitutional: Reports fatigue, Reports poor appetite, Reports weakness, Denies anorexia, Denies chills, Denies fever, Denies lethargy, Denies malaise Eyes: denies blurred vision, denies pain. Patient hard of hearing. Ears, nose, mouth and throat: Denies headache, Denies sore throat, Denies vertigo Cardiovascular: Denies chest pain, Denies decreased exercise tolerance, Denies dyspnea on exertion, Denies leg edema, Denies lightheadedness, Denies shortness of breath, Denies syncope Respiratory: Denies cough, Denies cough with sputum, Denies dyspnea, Denies excessive sputum, Denies hemoptysis, Denies home oxygen, Denies respiratory infections, Denies wheezing Gastrointestinal: Denies abdominal pain, Denies bloating, Denies diarrhea, Denies loss of appetite, Denies nausea, Denies vomiting Genitourinary: Reports incontinence, Reports urinary frequency, Reports urinary hesitancy, Reports urinary retention-now with garza, Denies dysuria, Denies flank pain, Denies hematuria Musculoskeletal: Reports muscle weakness, Denies frequent falls, Denies gait dysfunction, Denies myalgias Integumentary: Denies pruritus, Denies rash, Denies wounds Neurological: Denies change in mentation, Denies change in speech, Denies numbness, Denies weakness Psychiatric: Denies anxiety, Denies depression. Reports insomnia Endocrine: Denies fatigue, Denies weight change Objective - Vital Signs Vital signs: Vital Signs Temp 98.5 F 05/03/19 05:28 Pulse 58 L 05/03/19 05:28 Resp 18 05/03/19 05:28 BP 113/48 05/03/19 05:28 Pulse Ox 96 05/03/19 05:28 Intake & Output 05/02/19 05/03/19 05/03/19 18:59 06:59 18:59 Intake Total 1040 725 Output Total 550 1150 Balance 490 -425 Weight 58.967 kg Intake: IV 800 Sodium Chloride 0.9% 1, 800 000 ml @ 100 mls/hr IV . Q10H [facility] Rx#:[id number] Oral 240 725 Output: Urine 500 1150 Uretheral (Garza) 500 Post Void Residual 50 Other: Voiding Method Indwelling Catheter Indwelling Catheter # Voids 2 # Bowel Movements 1 - Exam Gen: This is an 88-year-old thin male. Patient is resting bed appears comfortable and in no acute distress. HEENT: Head is atraumatic, normocephalic. Pupils equal, round. Sclerae is anicteric. NECK: Supple. No JVD. No lymphadenopathy. No thyromegaly. LUNGS: Clear to auscultation. No wheezes or rhonchi. No intercostal retractions. HEART: Regular rate and rhythm. No murmur. ABDOMEN: Soft. Bowel sounds are present. No masses. No tenderness. No flank tenderness. Garza catheter in place with return of blood-tinged urine with mucus pus. EXTREMITIES: No pedal edema. No calf tenderness. Dorsalis pedis palpable bilaterally. NEUROLOGICAL: Patient is awake, alert and oriented x3. Cranial nerves 2 through 12 are grossly intact. - Labs CBC & Chem 7: 05/01/19 11:43 05/03/19 07:27 Labs: Abnormal Lab Results - Last 24 Hours (Table) 05/03/19 Range/Units 07:27 Potassium 5.9 H (3.5-5.1) mmol/L Chloride 118 H (98-107) mmol/L Carbon Dioxide 14 L (22-30) mmol/L BUN 45 H (9-20) mg/dL Creatinine 2.04 H (0.66-1.25) mg/dL Calcium 8.3 L (8.4-10.2) mg/dL Microbiology - Last 24 Hours (Table) 05/01/19 12:33 Urine Culture - Final Urine,Voided Strep agalactiae - (group b) 05/01/19 13:25 Blood Culture - Preliminary Blood No Growth after 24 hours Assessment and Plan Plan: 1. Acute kidney injury secondary to moderate bilateral hydronephrosis. Patient is currently on IV fluids at 100 mL per hour, consult with urology appreciated, continue Flomax 0.4 mg daily. Garza catheter in place. CAT scan as above 2. History of prostate cancer, benign prostatic hypertrophy, patient previously had a Garza catheter but none for years. Continue Flomax. 3. Atrial fibrillation, paroxysmal. Patient has been resumed on flecainide 50 mg twice daily, Lopressor 25 mg twice daily. Patient is not on anticoagulation. 4. Hypertension. Continue flecainide and Lopressor. 5. DVT prophylaxis. Heparin subcu. 6. GI prophylaxis. Pepcid. 7. Strep acute urinary tract infection secondary to incontinence and hydronephrosis. Continue ceftriaxone. 8. Insomnia. Melatonin added. Discharge plan: To be determined. PT and OT. Impression and plan of care have been directed as dictated by the signing physician. Tena Silva nurse practitioner acting as scribe for signing physician.
[2019-05-03] MEDS ORDERED: FUROSEMIDE 10 MG/ML 4 ML VIAL IV STA (11:50)
--- NOTE | 2019-05-03 13:29 | P.PN ---
Subjective Progress Note Date: 05/03/19 Principal diagnosis: Urinary retention/Bilateral hydronephrosis Underwent CT yesterday which demonstrated bilateral hydronephrosis with transition at the bladder. Denies any flank pain. Tolerating a diet denies N/V Objective - Vital Signs Vital signs: Vital Signs Temp 98.5 F 05/03/19 05:28 Pulse 58 L 05/03/19 05:28 Resp 18 05/03/19 05:28 BP 113/48 05/03/19 05:28 Pulse Ox 96 05/03/19 05:28 Intake & Output 05/02/19 05/03/19 05/03/19 18:59 06:59 18:59 Intake Total 1040 725 Output Total 550 1150 Balance 490 -425 Weight 58.967 kg Intake: IV 800 Sodium Chloride 0.9% 1, 800 000 ml @ 100 mls/hr IV . Q10H [facility] Rx#:[id number] Oral 240 725 Output: Urine 500 1150 Uretheral (Garza) 500 Post Void Residual 50 Other: Voiding Method Indwelling Catheter Indwelling Catheter # Voids 2 # Bowel Movements 1 - Constitutional General appearance: Present: no acute distress, thin - Gastrointestinal General gastrointestinal: Present: soft. Absent: distended - Genitourinary Genitourinary Comment(s): Cloudy urine with significant bladder debris - Psychiatric Psychiatric: Present: A&O x's 3 - Labs CBC & Chem 7: 05/01/19 11:43 05/03/19 07:27 Labs: Abnormal Lab Results - Last 24 Hours (Table) 05/03/19 Range/Units 07:27 Potassium 5.9 H (3.5-5.1) mmol/L Chloride 118 H (98-107) mmol/L Carbon Dioxide 14 L (22-30) mmol/L BUN 45 H (9-20) mg/dL Creatinine 2.04 H (0.66-1.25) mg/dL Calcium 8.3 L (8.4-10.2) mg/dL Microbiology - Last 24 Hours (Table) 05/01/19 12:33 Urine Culture - Final Urine,Voided Strep agalactiae - (group b) 05/01/19 13:25 Blood Culture - Preliminary Blood No Growth after 24 hours Assessment and Plan Assessment: This is a 88-year-old male admitted to the hospital with acute kidney injury. Renal bladder ultrasound demonstrated bilateral hydronephrosis. CT demonstrated hydronephrosis, ureter dilated to the bladder. This PVR is elevated at 250 mL. Of note he has history of prostate cancer, treated with radiation in the past. He also has history of LUTS, and previous history of urinary retention. Creat tr ending down with garza Plan: -Continue flomax. He can be discharged on flomax -Start Ceftrixone as an inpatient, can be transitioned to PO abx at time of discharge -Discharge home with garza, Can f/u with Dr Diana in 7-10 days
[2019-05-03] MEDS ORDERED: INSULIN REGULAR 100 UNIT/ML VIAL IV ONE (13:37)
[2019-05-03] MEDS ORDERED: ALBUTEROL NEB (CONC) 2.5 MG/0.5 ML INHALATION ONE (13:37)
[2019-05-03] MEDS ORDERED: DEXTROSE 5% IN WATER 1,000 ML with SODIUM BICARB (1 MEQ/ML) 150 ML IV ONE (13:37)
[2019-05-03] MEDS ORDERED: SODIUM POLYSTYRENE SULFONATE 15 GM/60 ML BOTTLE PO ONE (13:37)
--- NOTE | 2019-05-03 13:43 | P.NPCON ---
History of Present Illness - Reason for Consult Consult date: 05/03/19 acute renal failure, hyperkalemia - Chief Complaint Abnormal labs - History of Present Illness 88-year-old gentleman coming to the hospital with abnormal wraps from the urology office. He has history of BPH and kidney stones, urinary urgency and retention. He presented to the urology office with the complaints and blood work shows potassium of 5.2 and he was referred to the hospital for further evaluation. CT renal showed bilateral hydronephrosis severe including renal ultrasound. No obvious stones or masses were identified. Kaiser catheter was placed he started making urine. Nephrology was consulted today because of worsening hyperkalemia. Urine output of 1700 ML's in the last 24 hours. Good urine output since morning. He got a dose of Lasix. No nausea vomiting diarrhea. No chest pain shortness of breath. Denies taking NSAID use or recent contrast studies. Review of Systems Constitutional: Reports as per HPI Past Medical History Past Medical History: Atrial Fibrillation, Cancer, Hypertension, Prostate Disorder, Renal Disease Additional Past Medical History / Comment(s): Prosate cancer with radiation, kidney stones passed on his own and surgically removed, UTIs, chronic low back pain, occasional sinus problems. History of Any Multi-Drug Resistant Organisms: MRSA Date of last positivie culture/infection: 2017 MDRO Source:: urine? family/pt unsure Past Surgical History: Appendectomy, Hernia Repair, Orthopedic Surgery Additional Past Surgical History / Comment(s): Lithotripsy, hiatal hernia repair, L knee open surgery to "clean it out", colonoscopy, circumcism later in life d/t UTIs. Past Anesthesia/Blood Transfusion Reactions: No Reported Reaction Past Psychological History: No Psychological Hx Reported Additional Psychological History / Comment(s): Pt resides with his son. He uses a cane to ambulate. He no longer drives, his son takes him to appts. Son states that he, himself was recently hospitalized for a lengthy time and when he got back home, pt's meds were "screwed up". Smoking Status: Former smoker Past Alcohol Use History: None Reported Additional Past Alcohol Use History / Comment(s): Patient was a smoker one pack per day for 40 years and quit 35 years ago. He denies any alcohol use. Patient lives with his son. He uses a cane for ambulation. He denies any recent falls. Past Drug Use History: None Reported - Past Family History Father Family Medical History: Hypertension Additional Family Medical History / Comment(s): Father at age 82 from old age. Mother Additional Family Medical History / Comment(s): Mother at age 82 and was in a coma at the time. Patient is unsure of cause of her or causative coma. Brother(s) Additional Family Medical History / Comment(s): Patient has 1 brother that is . He is not know any of his medical history. Patient does not have any sisters. Patient has 4 daughters and 4 sons with no major medical problems. Medications and Allergies Home Medications Medication Instructions Recorded Confirmed Type Cranberry Fruit Extract [Cranberry] 200 mg PO DAILY 05/01/19 05/01/19 History Cyanocobalamin [Vitamin B-12] 500 mcg PO DAILY 05/01/19 05/01/19 History Flecainide Acetate 50 mg PO BID 05/01/19 05/01/19 History Magnesium Oxide 400 mg PO DAILY 05/01/19 05/01/19 History Metoprolol Tartrate [Lopressor] 25 mg PO BID 05/01/19 05/01/19 History Tamsulosin [Flomax] 0.4 mg PO DAILY 05/01/19 05/01/19 History Allergies Allergy/AdvReac Type Severity Reaction Status Date / Time No Known Allergies Allergy Verified 05/01/19 14:41 Physical Exam Vitals: Vital Signs Temp Pulse Resp BP Pulse Ox 05/03/19 05:28 98.5 F 58 L 18 113/48 96 05/02/19 21:00 98.6 F 62 18 137/62 100 05/02/19 14:09 98.3 F 73 17 110/62 96 Intake and Output 05/02/19 05/03/19 05/03/19 22:59 06:59 14:59 Intake Total 250 475 Output Total 900 800 Balance -650 -325 Intake: Oral 250 475 Output: Urine 850 800 Uretheral (Kaiser) 500 Post Void Residual 50 Other: Voiding Method Indwelling Catheter Indwelling Catheter Indwelling Catheter # Voids 2 # Bowel Movements 1 No acute distress S1-S2 heard Lungs clear Kaiser catheter No edema Results - Lab Results Most recent lab results Calcium 8.3 mg/dL (8.4-10.2) L 05/03/19 07:27 05/01/19 11:43 05/03/19 07:27 Assessment and Plan Assessment: #1 acute kidney injury secondary to obstructive uropathy. Creatinine improving. #2 hyperkalemia multifactorial, secondary to acidosis/acute kidney injury and obstruction. #3 bilateral hydronephrosis #4 metabolic acidosis #5 hypertension with chronic kidney disease #6 chronic kidney disease stage III with a baseline creatinine of 1.8-2.0 MG per DL. Plan: #1 renal function improving close to baseline. #2 change normal saline 2 bicarb drip to correct acidosis. #3 potassium cocktail with Kayexalate, albuterol and insulin dextrose. #4 repeat potassium every 4 #5 no acute indication for renal replacement therapy at this time. #6 if persistent hyperkalemia needs intervention by urology to currently obstruction
[2019-05-03] MEDS ORDERED: MELATONIN 3 MG TABLET PO SCH (21:00)
[2019-05-03] MEDS: MELATONIN 3 MG TABLET PO SCH ×2 (22:10→23:58)
[2019-05-03] MEDS: MELATONIN 5 MG TABLET PO SCH (22:12)
[2019-05-04] MEDS: HEPARIN SODIUM,PORCINE 5,000 UNIT/ML 1 ML VIAL SQ SCH ×2 (09:34→23:03)
[2019-05-04] MEDS: CYANOCOBALAMIN 500 MCG TAB PO SCH (09:34)
[2019-05-04] MEDS: TAMSULOSIN 0.4 MG CAP.ER.24H PO SCH (09:34)
[2019-05-04] MEDS: METOPROLOL TARTRATE 25 MG TAB PO SCH ×2 (09:34→23:02)
[2019-05-04] MEDS: FAMOTIDINE 20 MG TAB PO SCH (09:34)
[2019-05-04] MEDS: FLECAINIDE 50 MG TAB PO SCH ×2 (09:54→23:41)
--- NOTE | 2019-05-04 12:25 | P.PN ---
Subjective Progress Note Date: 05/04/19 Follow-up for acute kidney injury. 4 L of urine output in the last 24 hours. 700 ML's and will since morning. No new labs today. Objective - Vital Signs Vital signs: Vital Signs Temp 98.7 F 05/04/19 05:00 Pulse 78 05/04/19 05:00 Resp 18 05/04/19 05:00 BP 146/69 05/04/19 05:00 Pulse Ox 97 05/04/19 05:00 Intake & Output 05/03/19 05/04/19 05/04/19 18:59 06:59 18:59 Intake Total 300 500 Output Total 2900 2000 Balance -2600 -1500 Intake: Oral 300 500 Output: Urine 2900 2000 Other: Voiding Method Indwelling Catheter Indwelling Catheter # Voids 2 - Exam No acute distress Lungs clear Abdomen soft Kaiser No edema - Labs CBC & Chem 7: 05/01/19 11:43 05/03/19 13:50 Labs: Abnormal Lab Results - Last 24 Hours (Table) 05/03/19 Range/Units 13:50 Potassium 5.7 H (3.5-5.1) mmol/L Microbiology - Last 24 Hours (Table) 05/01/19 13:25 Blood Culture - Preliminary Blood No Growth after 48 hours Assessment and Plan Assessment: #1 acute kidney injury secondary to obstructive uropathy. Creatinine improving. No new labs today #2 hyperkalemia multifactorial, secondary to acidosis/acute kidney injury and obstruction. #3 bilateral hydronephrosis #4 metabolic acidosis #5 hypertension with chronic kidney disease #6 chronic kidney disease stage III with a baseline creatinine of 1.8-2.0 MG per DL. Plan: #1 renal function improving. Check BMP today #2 bicarbonate drip was stopped yesterday. Add by mouth sodium bicarbonate and follow up on BMP #3 avoid nephrotoxic agents and hypotensive episodes
[2019-05-04 13:02] LABS: Calcium 7.4 mg/dL (8.4-10.2); Potassium 4.1 mmol/L (3.5-5.1)
--- NOTE | 2019-05-04 15:02 | P.PN ---
Subjective Progress Note Date: 05/04/19 This is an 88-year-old male patient of Dr. Ramos with past medical history of atrial fibrillation, hypertension, chronic kidney disease stage III, kidney stones, frequent urinary tract infections, benign prostatic hypertrophy, prostate cancer, previous history of urinary retention requiring Garza catheter in the past. Patient is followed with a urologist in the past when he lived in [place] but none recently. Patient states that he has had increasing problems with urinary retention and urinary incontinence and utilizing to pull ups at the same time. He denies having any fever or chills. He denies having any dysuria or change in the color of his urine. He states he is tired. He was seen at the [facility] and and due to abnormal lab reports with abnormal renal function and elevated potassium, patient was instructed to come in the hospital for further evaluation. Patient presented to [facility] emergency center for evaluation. Patient was afebrile and vital signs stable, hemoglobin 9.8, WBC 7, BUN 61 and creatinine 2.75, potassium 5.3, chloride 113, CO2 16, blood sugar 93. Urinalysis turbid, blood moderate, leukoesterase large, WBCs greater than 182, RBCs 131, WBC cults many, bacteria many. EKG was a sinus rhythm with bundle branch block. Renal ultrasound revealed bilateral severe hydronephrosis. Patient was admitted to the [facility] floor consults in place with urology. 05/03: Patient has been seen by urology and CAT scan renal has been ordered which showed moderate bilateral hydronephrosis with renal atrophy. No mass. Rectal fecal impaction. Patient has had a Garza catheter placed with blood-tinged and mucus return. Patient has been afebrile, heart rate 58, blood pressure 113/48, pulse ox 96% on room air. Sodium 138, potassium 5.9, chloride 118, CO2 14, BUN 45 creatinine 2.05. Urine culture strep agalactia group B. Blood culture no growth. Await further recommendations for him urology. Patient is complaining of insomnia and melatonin added. 05/04: Patient has been afebrile, heart rate 78, blood pressure 146/69, pulse ox 97% on room air. A repeat blood work reveals improving renal function with BUN 42 and creatinine 1.84, calcium 7.4 potassium 4.1. Patient remains with Garza catheter in place. Patient is on bicarbonate drip. Sodium bicarb by mouth in place. Plan is to increase activity walker with assistance 3 times daily. Possible discharge in the next 24-48 hours. Review of Systems Constitutional: Reports fatigue, Reports poor appetite, Reports weakness, Denies anorexia, Denies chills, Denies fever, Denies lethargy, Denies malaise Eyes: denies blurred vision Patient hard of hearing. Ears, nose, mouth and throat: Denies headache, Denies sore throat, Denies vertigo Cardiovascular: Denies chest pain, Denies decreased exercise tolerance, Denies dyspnea on exertion, Denies leg edema, Denies lightheadedness, Denies shortness of breath, Denies syncope Respiratory: Denies cough, Denies cough with sputum, Denies dyspnea, Denies excessive sputum, Denies hemoptysis, Denies home oxygen, Denies respiratory infections, Denies wheezing Gastrointestinal: Denies abdominal pain, Denies bloating, Denies diarrhea, Denies loss of appetite, Denies nausea, Denies vomiting Genitourinary: Reports incontinence, Reports urinary frequency, Reports urinary hesitancy, Reports urinary retention-now with garza, Denies dysuria, Denies f lank pain, Denies hematuria Musculoskeletal: Reports muscle weakness, Denies frequent falls, Denies gait dysfunction, Denies myalgias Integumentary: Denies pruritus, Denies rash, Denies wounds Neurological: Denies change in mentation, Denies change in speech, Denies numbness, Denies weakness Psychiatric: Denies anxiety, Denies depression. Reports insomnia Endocrine: Denies fatigue, Denies weight change Objective - Vital Signs Vital signs: Vital Signs Temp 98.7 F 05/04/19 05:00 Pulse 78 05/04/19 05:00 Resp 18 05/04/19 05:00 BP 146/69 05/04/19 05:00 Pulse Ox 97 05/04/19 05:00 Intake & Output 05/03/19 05/04/19 05/04/19 18:59 06:59 18:59 Intake Total 300 500 Output Total 2900 1999 Balance -2600 -1500 Intake: Oral 300 500 Output: Urine 2900 1999 Other: Voiding Method Indwelling Catheter Indwelling Catheter # Voids 2 - Exam Gen: This is an 88-year-old thin male. Patient is resting bed appears comfortable and in no acute distress. HEENT: Head is atraumatic, normocephalic. Pupils equal, round. Sclerae is anicteric. NECK: Supple. No JVD. No lymphadenopathy. No thyromegaly. LUNGS: Clear to auscultation. No wheezes or rhonchi. No intercostal retractions. HEART: Regular rate and rhythm. No murmur. ABDOMEN: Soft. Bowel sounds are present. No masses. No tenderness. No flank tenderness. Garza catheter in place. EXTREMITIES: No pedal edema. No calf tenderness. Dorsalis pedis palpable bilaterally. NEUROLOGICAL: Patient is awake, alert and oriented x3. Cranial nerves 2 through 12 are grossly intact. - Labs CBC & Chem 7: 05/01/19 11:43 05/04/19 12:37 Labs: Abnormal Lab Results - Last 24 Hours (Table) 05/03/19 05/04/19 Range/Units 13:50 12:37 Potassium 5.7 H (3.5-5.1) mmol/L Chloride 109 H (98-107) mmol/L BUN 42 H (9-20) mg/dL Creatinine 1.84 H (0.66-1.25) mg/dL Calcium 7.4 L (8.4-10.2) mg/dL Microbiology - Last 24 Hours (Table) 05/01/19 13:25 Blood Culture - Preliminary Blood No Growth after 48 hours Assessment and Plan Plan: 1. Acute kidney injury secondary to moderate bilateral hydronephrosis. Consult with nephrology appreciated, consult with urology appreciated, continue Flomax 0.4 mg daily. Garza catheter in place. CAT scan as above patient is currently on sodium bicarb was discontinued this morning, 2. History of prostate cancer, benign prostatic hypertrophy, patient previously had a Garza catheter but none for years. Continue Flomax. 3. Atrial fibrillation, paroxysmal. Patient has been resumed on flecainide 50 mg twice daily, Lopressor 25 mg twice daily. Patient is not on anticoagulation. 4. Hypertension. Continue flecainide and Lopressor. 5. DVT prophylaxis. Heparin subcu. 6. GI prophylaxis. Pepcid. 7. Strep acute urinary tract infection secondary to incontinence and hydronephrosis. Continue ceftriaxone. 8. Insomnia. Melatonin added. Discharge plan: To be determined. PT and OT. Impression and plan of care have been directed as dictated by the signing physician. Tena Silva nurse practitioner acting as scribe for signing physician.
[2019-05-04] MEDS: MELATONIN 5 MG TABLET PO SCH (23:03)
[2019-05-04] MEDS: MELATONIN 3 MG TABLET PO SCH (23:03)
[2019-05-05 06:30] VITALS: BP 133/62; PULSE 61; RESP 15; TEMP 98
[2019-05-05] MEDS: TAMSULOSIN 0.4 MG CAP.ER.24H PO SCH (08:57)
[2019-05-05] MEDS: METOPROLOL TARTRATE 25 MG TAB PO SCH (08:57)
[2019-05-05] MEDS: CYANOCOBALAMIN 500 MCG TAB PO SCH (08:57)
[2019-05-05] MEDS: FAMOTIDINE 20 MG TAB PO SCH (08:57)
[2019-05-05] MEDS: HEPARIN SODIUM,PORCINE 5,000 UNIT/ML 1 ML VIAL SQ SCH (08:57)
[2019-05-05] MEDS: FLECAINIDE 50 MG TAB PO SCH (08:58)
[2019-05-05 09:00] LABS: Calcium 7.7 mg/dL (8.4-10.2); Potassium 4.7 mmol/L (3.5-5.1)
--- NOTE | 2019-05-05 17:43 | PN ---
PROGRESS NOTE Patient is seen for followup for acute kidney injury. He is actually being discharged today. The patient has an indwelling Kaiser catheter. He will follow up as outpatient with Urology. On examination today, blood pressure was 133/62, heart rate 61 per minute. Patient is afebrile. EXAMINATION OF THE HEART: S1 and S2. EXAMINATION OF LUNGS: Decreased breath sounds at bases. ABDOMEN: Soft, non-tender. Examination of lower extremities shows no significant edema. Labs show sodium 137, potassium 4.7, chloride 107, BUN 42, creatinine 1.75. ASSESSMENT: 1. Acute kidney injury, obstructive uropathy, currently with indwelling Kaiser catheter with plans to follow up as outpatient with Urology. 2. Bilateral hydronephrosis secondary to renal failure. 3. Benign prostatic hypertrophy, maintained on Flomax. 4. Chronic kidney disease, stage III. Baseline creatinine about 1.8 mg/dL all the way back to 2017. Patient will need to follow up as outpatient in about 1 to 2 weeks. PLAN: Patient can be discharged from nephrology standpoint. Follow up with Urology as outpatient. MMODL / IJN: [id number] /
--- NOTE | 2019-05-07 09:09 | P.DS ---
Providers Date of admission: 05/03/19 08:51 Expected date of discharge: 05/05/19 Attending physician: Sammy Palumbo Consults: 05/02/19 09:51 Consult Physician Routine Consulting Provider: Omi Diana Consult Reason/Comments: SAI, urinary retention, Bilat hydro Do you want consulting provider notified?: Yes 05/03/19 11:50 Consult Physician Routine Consulting Provider: Ran Talamantes Consult Reason/Comments: SAI, hyperK Do you want consulting provider notified?: Yes Primary care physician: Dev Ramos [facility] Hospital Course: This is an 88-year-old male patient of Dr. Ramos with past medical history of atrial fibrillation, hypertension, chronic kidney disease stage III, kidney stones, frequent urinary tract infections, benign prostatic hypertrophy, prostate cancer, previous history of urinary retention requiring Kaiser catheter in the past. Patient is followed with a urologist in the past when he lived in [place] but none recently. Patient states that he has had increasing problems with urinary retention and urinary incontinence and utilizing to pull ups at the same time. He denies having any fever or chills. He denies having any dysuria or change in the color of his urine. He states he is tired. [facility] was [facility] and and due to abnormal lab reports with abnormal renal function and elevated potassium, patient was instructed to come in the hospital for further evaluation. Patient presented to [facility] emergency center for evaluation. Patient was afebrile and vital signs stable, hemoglobin 9.8, WBC 7, BUN 61 and creatinine 2.75, potassium 5.3, chloride 113, CO2 16, blood sugar 93. Urinalysis turbid, blood moderate, leukoesterase large, WBCs greater than 182, RBCs 131, WBC cults many, bacteria many. EKG was a sinus rhythm with bundle branch block. Renal ultrasound revealed bilateral severe hydronephrosis. Patient was admitted to the [facility] floor consults in place with urology. 05/03: Patient has been seen by urology and CAT scan renal has been ordered which showed moderate bilateral hydronephrosis with renal atrophy. No mass. Rectal fecal impaction. Patient has had a Kaiser catheter placed with blood-tinged and mucus return. Patient has been afebrile, heart rate 58, blood pressure 113/48, pulse ox 96% on room air. Sodium 138, potassium 5.9, chloride 118, CO2 14, BUN 45 creatinine 2.05. Urine culture strep agalactia group B. Blood culture no growth. Await further recommendations for him urology. Patient is complaining of insomnia and melatonin added. 05/04: Patient has been afebrile, heart rate 78, blood pressure 146/69, pulse ox 97% on room air. A repeat blood work reveals improving renal function with BUN 42 and creatinine 1.84, calcium 7.4 potassium 4.1. Patient remains with Kaiser catheter in place. Patient is on bicarbonate drip. Sodium bicarb by mouth in place. Plan is to increase activity walker with assistance 3 times daily. Possible discharge in the next 24-48 hours. 05/05: Patient has been afebrile, heart rate 61, blood pressure 133/62, pulse ox 97% on room air. Repeat blood work today reveals normal potassium 4.7, CO2 is 23, BUN 42 and creatinine 1.75, calcium 7.7. Urine culture with strep agalactia group B. Patient is currently on ceftriaxone. Kaiser catheter remains in place and will remain in place until follow-up with urology. Patient will be discharged home with a course of Ceftin.. Discharge diagnoses: 1. Acute kidney injury secondary to moderate bilateral hydronephrosis. 2. History of prostate cancer, benign prostatic hypertrophy,. 3. Possible history of ventricular arrhythmias. Flecainide was started by [place] physician and patient does not know the underlying reason. 4. Hypertension with chronic kidney disease. 5. Hyperkalemia secondary to acidosis and acute kidney injury. 6. Metabolic acidosis secondary to acute kidney injury 7. Strep acute urinary tract infection secondary to incontinence, obstructive uropathy. 8. Insomnia. 9. Chronic kidney disease stage III Discharge plan: home Impression and plan of care have been directed as dictated by the signing physician. Tena Silva nurse practitioner acting as scribe for signing physician. Patient Condition at Discharge: Good Plan - Discharge Summary Discharge Rx Participant: No New Discharge Prescriptions: New Cefuroxime [Ceftin] 250 mg PO BID #20 tablet Continue Flecainide Acetate 50 mg PO BID Magnesium Oxide 400 mg PO DAILY Cyanocobalamin [Vitamin B-12] 500 mcg PO DAILY Cranberry Fruit Extract [Cranberry] 200 mg PO DAILY Tamsulosin [Flomax] 0.4 mg PO DAILY Metoprolol Tartrate [Lopressor] 25 mg PO BID Discharge Medication List Cranberry Fruit Extract [Cranberry] 200 mg PO DAILY 05/01/19 [History] Cyanocobalamin [Vitamin B-12] 500 mcg PO DAILY 05/01/19 [History] Flecainide Acetate 50 mg PO BID 05/01/19 [History] Magnesium Oxide 400 mg PO DAILY 05/01/19 [History] Metoprolol Tartrate [Lopressor] 25 mg PO BID 05/01/19 [History] Tamsulosin [Flomax] 0.4 mg PO DAILY 05/01/19 [History] Cefuroxime [Ceftin] 250 mg PO BID #20 tablet 05/05/19 [Rx] Follow up Appointment(s)/Referral(s): Omi Diana MD [STAFF PHYSICIAN] - 05/14/19 1:20 pm Dev Ramos MD [Primary Care Provider] - 05/12/19 9:45 am Patient Instructions/Handouts: Acute Kidney Injury (DC), Urinary Tract Infection in Men (DC), Kaiser Catheter Placement and Care (DC) Activity/Diet/Wound Care/Special Instructions: Discharge home with Indwelling catheter until follow up appointment with [facility] Discharge Disposition: HOME SELF-CARE
== END 2019-05-05 15:25 | disposition home or self-care (01) | DRG 683 ==
LOC: EC 10:45 → 6NMEDSUR 13:55 → UNDOADMOB 13:55 → 6NMEDSUR 14:24 → OBSVTOIN 05-03 08:51 → 6NMEDSUR 05-03 08:51 → INTOOBSV 05-03 08:51
PROVIDERS: ADMIT Internal Medicine; ATTEND Internal Medicine
DX: N17.9 Acute kidney failure, unspecified (principal); E87.2 Acidosis; N13.6 Pyonephrosis; N18.3 Chronic kidney disease, stage 3 (moderate); I48.0 Paroxysmal atrial fibrillation; N40.1 Benign prostatic hyperplasia with lower urinary tract symptoms; G47.00 Insomnia, unspecified; E87.5 Hyperkalemia; I12.9 Hypertensive chronic kidney disease with stage 1 through stage 4 chronic kidney disease, or unspecified chronic kidney disease; K56.41 Fecal impaction; B95.1 Streptococcus, group B, as the cause of diseases classified elsewhere; Z87.440 Personal history of urinary (tract) infections; Z87.442 Personal history of urinary calculi; Z85.46 Personal history of malignant neoplasm of prostate; Z82.49 Family history of ischemic heart disease and other diseases of the circulatory system; Z79.899 Other long term (current) drug therapy; Z92.3 Personal history of irradiation; Z87.891 Personal history of nicotine dependence; Z90.49 Acquired absence of other specified parts of digestive tract; Z98.890 Other specified postprocedural states; Z86.14 Personal history of Methicillin resistant Staphylococcus aureus infection
CPT/HCPCS: 36415; 74150; 76770; 80048; 80053; 81001; 83605; 84132; 85025; 87040; 87086; 93005; 94640; 96361; 96374; 99285

== ENCOUNTER 2020-03-12 15:13 | Inpatient (IN) | payer OTHER, MEDICARE ==
[2020-03-12 16:08] LABS: Basophils % (A) 0 %; Eosinophils % (A) 0 %; HGB 10.7 gm/dL (13.0-17.5); Lymphocytes # (A) 0.4 k/uL (1.0-4.8); Lymphocytes % (A) 3 %; MCH 33.6 pg (25.0-35.0); MCHC 32.4 g/dL (31.0-37.0); MCV 103.7 fL (80.0-100.0); Macrocytosis Slight; Mean Platelet Volume 6.9; Monocytes # (A) 0.5 k/uL (0-1.0); Monocytes % (A) 4 %; Neutrophils % (A) 93 %; Platelet Count 471 k/uL (150-450); RBC 3.19 m/uL (4.30-5.90); RDW 12.9 % (11.5-15.5); WBC 15.1 k/uL (3.8-10.6)
[2020-03-12 16:21] LABS: Partial Thromboplastin Time 30.1 sec (22.0-30.0); Prothrombin Time 10.8 sec (9.0-12.0)
[2020-03-12 16:23] LABS: Calcium 9.7 mg/dL (8.4-10.2); Magnesium 1.4 mg/dL (1.6-2.3); Total Bilirubin 0.5 mg/dL (0.2-1.3); Total Protein 7.5 g/dL (6.3-8.2)
--- NOTE | 2020-03-12 16:26 | XR ---
EXAMINATION TYPE: XR chest 1V portable DATE OF EXAM: 03/12/2020 HISTORY: Shortness of breath. COMPARISON: 04/23/2019 TECHNIQUE: Single view of the chest is submitted. FINDINGS: Demonstrated are scattered senescent parenchymal change. There is no evidence for focal infiltrate. The heart is stable. Hilar and mediastinal structures are within normal limits. Degenerative changes are seen of the dorsal spine. IMPRESSION: 1. Chronic changes without evidence for acute pulmonary disease.
[2020-03-12 16:32] LABS: Potassium 6.7 mmol/L (3.5-5.1)
[2020-03-12] MEDS ORDERED: ALBUTEROL NEB (CONC) 2.5 MG/0.5 ML INHALATION ONE (16:48)
[2020-03-12] MEDS ORDERED: DEXTROSE 50% SYRINGE 50 ML IVP ONE (16:48)
[2020-03-12] MEDS ORDERED: SODIUM POLYSTYRENE SULFONATE 15 GM/60 ML BOTTLE PO ONE (16:48)
[2020-03-12] MEDS ORDERED: INSULIN REGULAR 100 UNIT/ML VIAL IV ONE ×2 (16:48→21:48)
[2020-03-12] MEDS ORDERED: SODIUM BICARB 8.4% 50 ML SYR (1 MEQ/ML) IV ONE (16:48)
[2020-03-12] MEDS ORDERED: ONDANSETRON 4 MG/2 ML VIAL IVP PRN (17:05)
[2020-03-12] MEDS ORDERED: DOCUSATE 100 MG CAP PO PRN (17:05)
[2020-03-12] MEDS ORDERED: SODIUM CHLORIDE 0.9% 1,000 ML IV ONE (17:05)
[2020-03-12] MEDS ORDERED: TEMAZEPAM 15 MG CAP PO PRN (17:05)
[2020-03-12] MEDS ORDERED: CALCIUM GLUCONATE 1 GM in SODIUM CHLORIDE 0.9% 100 ML IVPB ONE ×2 (17:05→21:48)
[2020-03-12] MEDS ORDERED: NALOXONE 0.4 MG/ML 1 ML VIAL IV PRN (17:05)
--- NOTE | 2020-03-12 17:10 | ED ---
General Adult HPI - General Chief complaint: Shortness of Breath Stated complaint: Weakness, SOB, Cough Time Seen by Provider: 03/12/20 15:26 Source: patient, family Mode of arrival: wheelchair Limitations: no limitations - History of Present Illness Initial comments: Patient presents with malaise. He has no chest or belly or back pain specifically. He has no nausea or vomiting. He has no focal weakness. He has no lightheadedness or dizziness. He has been getting worse for several days. He was sent here by family who felt like he wasn't doing very well. He is unaware of sick contacts. He has not traveled anywhere. He has not taken any medication for any the symptoms. - Related Data Home Medications Medication Instructions Recorded Confirmed Cranberry Fruit Extract [Cranberry] 200 mg PO DAILY 05/01/19 05/01/19 Cyanocobalamin [Vitamin B-12] 500 mcg PO DAILY 05/01/19 05/01/19 Flecainide Acetate 50 mg PO BID 05/01/19 05/01/19 Magnesium Oxide 400 mg PO DAILY 05/01/19 05/01/19 Metoprolol Tartrate [Lopressor] 25 mg PO BID 05/01/19 05/01/19 Tamsulosin [Flomax] 0.4 mg PO DAILY 05/01/19 05/01/19 Previous Rx's Medication Instructions Recorded Cefuroxime [Ceftin] 250 mg PO BID #20 tablet 05/05/19 Allergies Allergy/AdvReac Type Severity Reaction Status Date / Time No Known Allergies Allergy Verified 03/12/20 15:22 Review of Systems ROS Statement: Those systems with pertinent positive or pertinent negative responses have been documented in the HPI. ROS Other: All systems not noted in ROS Statement are negative. Past Medical History Past Medical History: Atrial Fibrillation, Cancer, Hypertension, Prostate Disorder, Renal Disease Additional Past Medical History / Comment(s): Prosate cancer with radiation, kidney stones passed on his own and surgically removed, UTIs, chronic low back pain, occasional sinus problems. [place]. History of Any Multi-Drug Resistant Organisms: MRSA Date of last positivie culture/infection: 2017 MDRO Source:: urine? family/pt unsure Past Surgical History: Appendectomy, Hernia Repair, Orthopedic Surgery Additional Past Surgical History / Comment(s): Lithotripsy, hiatal hernia repair, L knee open surgery to "clean it out", colonoscopy, circumcism later in life d/t UTIs. Past Anesthesia/Blood Transfusion Reactions: No Reported Reaction Past Psychological History: No Psychological Hx Reported Smoking Status: Never smoker Past Alcohol Use History: None Reported Past Drug Use History: None Reported - Past Family History Father Family Medical History: Hypertension Additional Family Medical History / Comment(s): Father at age 82 from old age. Mother Additional Family Medical History / Comment(s): Mother at age 82 and was in a coma at the time. Patient is unsure of cause of her or causative coma. Brother(s) Additional Family Medical History / Comment(s): Patient has 1 brother that is . He is not know any of his medical history. Patient does not have any sisters. Patient has 4 daughters and 4 sons with no major medical problems. General Exam Limitations: no limitations General appearance: alert, in no apparent distress Head exam: Present: atraumatic, normocephalic, normal inspection Eye exam: Present: normal appearance, PERRL, EOMI. Absent: scleral icterus, conjunctival injection, periorbital swelling ENT exam: Present: normal exam, mucous membranes moist Neck exam: Present: normal inspection. Absent: tenderness, meningismus, lymphadenopathy Respiratory exam: Present: normal lung sounds bilaterally. Absent: respiratory distress, wheezes, rales, rhonchi, stridor Cardiovascular Exam: Present: regular rate, normal rhythm, normal heart sounds. Absent: systolic murmur, diastolic murmur, rubs, gallop, clicks GI/Abdominal exam: Present: soft, normal bowel sounds. Absent: distended, tenderness, guarding, rebound, rigid Extremities exam: Present: normal inspection, full ROM, normal capillary refill. Absent: tenderness, pedal edema, joint swelling, calf tenderness Back exam: Present: normal inspection Neurological exam: Present: alert, oriented X3, CN II-XII intact Psychiatric exam: Present: normal affect, normal mood Skin exam: Present: warm, dry, intact, normal color. Absent: rash Course Vital Signs 03/12/20 03/12/20 15:14 16:02 Temperature 96.3 F L Pulse Rate 99 95 Respiratory 20 18 Rate Blood Pressure 110/64 113/95 O2 Sat by Pulse 93 L 97 Oximetry EKG Findings - EKG Comments: EKG Findings:: Twelve-lead EKG shows ventricular rate 75 bpm, normal RI interval and Liban complexes, no psoas or pressure, interpreted by me as normal sinus rhythm. Medical Decision Making - Medical Decision Making Patient presents with malaise. Workup reveals acute kidney failure. He did require treatment for hyperkalemia. I will admit him to the hospital. I ordered a renal ultrasound and a consult to nephrology. - Lab Data Result diagrams: 03/12/20 15:39 03/12/20 15:39 Lab Results 03/12/20 03/12/20 03/12/20 Range/Units 15:39 15:39 15:39 WBC 15.1 H (3.8-10.6) k/uL RBC 3.19 L (4.30-5.90) m/uL Hgb 10.7 L (13.0-17.5) gm/dL Hct 33.0 L (39.0-53.0) % MCV 103.7 H (80.0-100.0) fL MCH 33.6 (25.0-35.0) pg MCHC 32.4 (31.0-37.0) g/dL RDW 12.9 (11.5-15.5) % Plt Count 471 H (150-450) k/uL MPV 6.9 Neutrophils % 93 % Lymphocytes % 3 % Monocytes % 4 % Eosinophils % 0 % Basophils % 0 % Neutrophils # 14.0 H (1.3-7.7) k/uL Lymphocytes # 0.4 L (1.0-4.8) k/uL Monocytes # 0.5 (0-1.0) k/uL Eosinophils # 0.0 (0-0.7) k/uL Basophils # 0.0 (0-0.2) k/uL Macrocytosis Slight PT 10.8 (9.0-12.0) sec INR 1.0 (<1.2) APTT 30.1 H (22.0-30.0) sec Sodium 138 (137-145) mmol/L Potassium 6.7 H* (3.5-5.1) mmol/L Chloride 114 H (98-107) mmol/L Carbon Dioxide 7 L* (22-30) mmol/L Anion Gap 17 mmol/L BUN 106 H* (9-20) mg/dL Creatinine 5.29 H (0.66-1.25) mg/dL Est GFR (CKD-EPI)AfAm 10 (>60 ml/min/1.73 sqM) Est GFR (CKD-EPI)NonAf 9 (>60 ml/min/1.73 sqM) Glucose 162 H (74-99) mg/dL Plasma Lactic Acid Santos (0.7-2.0) mmol/L Calcium 9.7 (8.4-10.2) mg/dL Magnesium 1.4 L (1.6-2.3) mg/dL Total Bilirubin 0.5 (0.2-1.3) mg/dL AST 16 L (17-59) U/L ALT 11 (4-49) U/L Alkaline Phosphatase 134 H (38-126) U/L Troponin I (0.000-0.034) ng/mL NT-Pro-B Natriuret Pep pg/mL Total Protein 7.5 (6.3-8.2) g/dL Albumin 4.0 (3.5-5.0) g/dL Coronavirus (PCR) (Not Detectd) 03/12/20 03/12/20 03/12/20 Range/Units 15:39 15:39 15:39 WBC (3.8-10.6) k/uL RBC (4.30-5.90) m/uL Hgb (13.0-17.5) gm/dL Hct (39.0-53.0) % MCV (80.0-100.0) fL MCH (25.0-35.0) pg MCHC (31.0-37.0) g/dL RDW (11.5-15.5) % Plt Count (150-450) k/uL MPV Neutrophils % % Lymphocytes % % Monocytes % % Eosinophils % % Basophils % % Neutrophils # (1.3-7.7) k/uL Lymphocytes # (1.0-4.8) k/uL Monocytes # (0-1.0) k/uL Eosinophils # (0-0.7) k/uL Basophils # (0-0.2) k/uL Macrocytosis PT (9.0-12.0) sec INR (<1.2) APTT (22.0-30.0) sec Sodium (137-145) mmol/L Potassium (3.5-5.1) mmol/L Chloride (98-107) mmol/L Carbon Dioxide (22-30) mmol/L Anion Gap mmol/L BUN (9-20) mg/dL Creatinine (0.66-1.25) mg/dL Est GFR (CKD-EPI)AfAm (>60 ml/min/1.73 sqM) Est GFR (CKD-EPI)NonAf (>60 ml/min/1.73 sqM) Glucose (74-99) mg/dL Plasma Lactic Acid Santos 2.0 (0.7-2.0) mmol/L Calcium (8.4-10.2) mg/dL Magnesium (1.6-2.3) mg/dL Total Bilirubin (0.2-1.3) mg/dL AST (17-59) U/L ALT (4-49) U/L Alkaline Phosphatase (38-126) U/L Troponin I 0.028 (0.000-0.034) ng/mL NT-Pro-B Natriuret Pep 4350 pg/mL Total Protein (6.3-8.2) g/dL Albumin (3.5-5.0) g/dL Coronavirus (PCR) (Not Detectd) 03/12/20 Range/Units 15:56 WBC (3.8-10.6) k/uL RBC (4.30-5.90) m/uL Hgb (13.0-17.5) gm/dL Hct (39.0-53.0) % MCV (80.0-100.0) fL MCH (25.0-35.0) pg MCHC (31.0-37.0) g/dL RDW (11.5-15.5) % Plt Count (150-450) k/uL MPV Neutrophils % % Lymphocytes % % Monocytes % % Eosinophils % % Basophils % % Neutrophils # (1.3-7.7) k/uL Lymphocytes # (1.0-4.8) k/uL Monocytes # (0-1.0) k/uL Eosinophils # (0-0.7) k/uL Basophils # (0-0.2) k/uL Macrocytosis PT (9.0-12.0) sec INR (<1.2) APTT (22.0-30.0) sec Sodium (137-145) mmol/L Potassium (3.5-5.1) mmol/L Chloride (98-107) mmol/L Carbon Dioxide (22-30) mmol/L Anion Gap mmol/L BUN (9-20) mg/dL Creatinine (0.66-1.25) mg/dL Est GFR (CKD-EPI)AfAm (>60 ml/min/1.73 sqM) Est GFR (CKD-EPI)NonAf (>60 ml/min/1.73 sqM) Glucose (74-99) mg/dL Plasma Lactic Acid Santos (0.7-2.0) mmol/L Calcium (8.4-10.2) mg/dL Magnesium (1.6-2.3) mg/dL Total Bilirubin (0.2-1.3) mg/dL AST (17-59) U/L ALT (4-49) U/L Alkaline Phosphatase (38-126) U/L Troponin I (0.000-0.034) ng/mL NT-Pro-B Natriuret Pep pg/mL Total Protein (6.3-8.2) g/dL Albumin (3.5-5.0) g/dL Coronavirus (PCR) Not Detected (Not Detectd) Disposition Clinical Impression: Kidney failure Disposition: ADMITTED IP TO THIS HOSP Condition: Serious Is patient prescribed a controlled substance at d/c from ED?: No Referrals: Dev Ramos MD [Primary Care Provider] - 1-2 days
--- NOTE | 2020-03-12 18:38 | US ---
EXAMINATION TYPE: US renals and bladder DATE OF EXAM: 03/12/2020 COMPARISON: NONE CLINICAL HISTORY: kidney failure. renal failure EXAM MEASUREMENTS: Right Kidney: 11.7 x 7.5 x 7.2 cm Left Kidney: 10.3 x 7.3 x 5.6 cm Right Kidney: 3.0 cm cyst upper pole severe hydronephrosis Left Kidney: Severe hydronephrosis Bladder: anechoic Bilateral Jets seen: No IMPRESSION: There is bilateral severe hydronephrosis. No ureteral jets were seen and consistent with obstruction. No evidence of a solid renal mass. Hydronephrosis similar to the old CT scan of 05/02/2019.
[2020-03-12] MEDS: FLECAINIDE 50 MG TAB PO SCH (21:00)
[2020-03-12] MEDS: METOPROLOL TARTRATE 25 MG TAB PO SCH (21:00)
[2020-03-12] MEDS ORDERED: DEXTROSE 50% SYRINGE 50 ML IVP STA (21:48)
[2020-03-12] MEDS ORDERED: Magnesium Replacement Protocol 1 EACH MISC MISCELLANE PRN (21:48)
[2020-03-12] MEDS ORDERED: SODIUM BICARB 8.4% 50 ML SYR (1 MEQ/ML) IV STA (21:48)
[2020-03-12] MEDS: MAGNESIUM SULFATE-D5W PMX 1 GM in DEXTROSE/WATER 1 100ML.BAG IVPB SCH (22:38)
[2020-03-12] MEDS: DEXTROSE 5%-0.45% NACL 1,000 ML with SODIUM BICARB (1 MEQ/ML) 150 ML IV SCH ×2 (22:39)
[2020-03-13] MEDS: MAGNESIUM SULFATE-D5W PMX 1 GM in DEXTROSE/WATER 1 100ML.BAG IVPB SCH ×2 (00:06→02:04)
[2020-03-13 08:24] LABS: Basophils % (A) 0 %; Eosinophils % (A) 0 %; HCT 24.5 % (39.0-53.0); Lymphocytes # (A) 0.4 k/uL (1.0-4.8); Lymphocytes % (A) 5 %; MCH 34.1 pg (25.0-35.0); MCHC 34.1 g/dL (31.0-37.0); Mean Platelet Volume 6.6; Monocytes # (A) 0.6 k/uL (0-1.0); Monocytes % (A) 7 %; Neutrophils # (A) 7.7 k/uL (1.3-7.7); Neutrophils % (A) 87 %; Platelet Count 322 k/uL (150-450); RBC 2.45 m/uL (4.30-5.90); RDW 12.7 % (11.5-15.5); WBC 8.9 k/uL (3.8-10.6)
[2020-03-13 08:31] LABS: HGB 8.4 gm/dL (13.0-17.5)
[2020-03-13 08:41] LABS: Albumin 2.8 g/dL (3.5-5.0); Calcium 8.4 mg/dL (8.4-10.2); Magnesium 2.5 mg/dL (1.6-2.3); Potassium 4.9 mmol/L (3.5-5.1); Total Bilirubin 0.3 mg/dL (0.2-1.3); Total Protein 5.6 g/dL (6.3-8.2)
[2020-03-13] MEDS: MAGNESIUM OXIDE 400 MG TAB PO SCH (09:11)
[2020-03-13] MEDS: DEXTROSE 5%-0.45% NACL 1,000 ML with SODIUM BICARB (1 MEQ/ML) 150 ML IV SCH ×2 (09:12)
[2020-03-13] MEDS: CYANOCOBALAMIN 500 MCG TAB PO SCH (09:12)
[2020-03-13] MEDS: FLECAINIDE 50 MG TAB PO SCH ×2 (09:12→19:57)
[2020-03-13] MEDS: METOPROLOL TARTRATE 25 MG TAB PO SCH ×2 (09:12→19:57)
[2020-03-13] MEDS: TAMSULOSIN 0.4 MG CAP.ER.24H PO SCH (09:12)
--- NOTE | 2020-03-13 13:03 | P.HPIM ---
History of Present Illness H&P Date: 03/13/20 Chief Complaint: Acute kidney failure, acute kidney injury, severe generalized symptoms, his 89-year-old male one of Dr. Ramos's patient with past medical history of A. fib, hypertension, stage III chronic kidney disease, history of kidney stone, recurrent irretractable infection, prostate cancer, history of urinary retention require full catheter in the past who seen urology regular basis, patient also used to live in [place] and used to see urologist on regular basis has been in [facility] for the last year patient continued to have generalized symptoms on and off he was hospitalized last at [facility] in May 19 acute kidney injury and acute kidney failure also had possible history of ventricular arrhythmia was on flecainide that time by the MD doctor for not no reason. Patient seen nephrology in [facility] and Dr. Ramos on regular basis he presented to the emergency department last night with malaise fatigue and not feeling well overall without any complaint of abdominal pain or change in urination is still having significant decrease in her urine output family were not aware that patient is sick with his presentation with the fatigue tiredness found to have potassium of 6.7 with creatinine of 5.29 with bun of 106 patient hemoglobin was 10.7. Patient also has a BNP of 4350 with significantly elevated blood sugar at the time. Nephrology were called and patient was treated for hyperkalemia in the emergency room brought his number down to 6.1 and furthermore after midnight to 4.9 his bun still 104 with creatinine of 4.22 patient is in acute kidney failure at this time with acute kidney injury most likely ATN on a chronic kidney disease most likely few urinary retention. Bilateral severe hydronephrosis was found on ultrasound of the kidney with no evidence of solid renal mass that similar to what patient had in his CAT SCAN back in 05/02/2019. We'll consult nephrology and urology for possible needing stent and continue hydration continue supportive care for the kidney Review of Systems CONSTITUTIONAL: Look malnourished although than his age in no acute despite a distress EYES: No icterus sclerae, no conjunctivitis. EARS, NOSE, MOUTH, THROAT, and FACE: No sore throat, lymphadenopathy, carotid bruits or deformity. RESPIRATORY: Mild shortness of breath no cough or wheezes. CARDIOVASCULAR: Positive PND or troponin palpitation. GASTROINTESTINAL: No Abd pain, Nausea or vomiting, no Diarrhea or constipation, No GI Bleed, no distention or masses. GENITOURINARY: Decrease urine output with chronic kidney disease. INTEGUMENT/BREAST: Negative for any muscular injury with mild osteoarthritis.. HEMATOLOGIC/LYMPHATIC: Negative for bleed or purpura. MUSCULOSKELTAL: Negative for Myalgia or arthralgia. NEURLOGICAL: Mild altered mental status with no syncope no blurred vision slight dizziness and abnormal balance and gait. BEHAVIORAL/PSYCH: Negative. ENDOCRINE: Negative. Past Medical History Past Medical History: Atrial Fibrillation, Cancer, Hypertension, Prostate Disor carlos, Renal Disease Additional Past Medical History / Comment(s): Prosate cancer with radiation, kidney stones passed on his own and surgically removed, UTIs, chronic low back pain, occasional sinus problems. [place]. History of Any Multi-Drug Resistant Organisms: MRSA Date of last positivie culture/infection: 2017 MDRO Source:: urine? family/pt unsure Past Surgical History: Appendectomy, Hernia Repair, Orthopedic Surgery Additional Past Surgical History / Comment(s): Lithotripsy, hiatal hernia repair, L knee open surgery to "clean it out", colonoscopy, circumcism later in life d/t UTIs. Past Anesthesia/Blood Transfusion Reactions: No Reported Reaction Past Psychological History: No Psychological Hx Reported Additional Psychological History / Comment(s): Pt resides with his son. He uses a cane to ambulate. He no longer drives, his son takes him to appts. Son states that he, himself was recently hospitalized for a lengthy time and when he got back home, pt's meds were "screwed up". Smoking Status: Never smoker Past Alcohol Use History: None Reported Additional Past Alcohol Use History / Comment(s): Patient was a smoker one pack per day for 40 years and quit 35 years ago. He denies any alcohol use. Patient lives with his son. He uses a cane for ambulation. He denies any recent falls. Past Drug Use History: None Reported - Past Family History Father Family Medical History: Hypertension Additional Family Medical History / Comment(s): Father at age 82 from old age. Mother Additional Family Medical History / Comment(s): Mother at age 82 and was in a coma at the time. Patient is unsure of cause of her or causative coma. Brother(s) Additional Family Medical History / Comment(s): Patient has 1 brother that is . He is not know any of his medical history. Patient does not have any sisters. Patient has 4 daughters and 4 sons with no major medical problems. Medications and Allergies Home Medications Medication Instructions Recorded Confirmed Type Cyanocobalamin [Vitamin B-12] 500 mcg PO BID 05/01/19 03/12/20 History Flecainide Acetate 50 mg PO BID 05/01/19 03/12/20 History Metoprolol Tartrate [Lopressor] 25 mg PO BID 05/01/19 03/12/20 History Tamsulosin [Flomax] 0.4 mg PO DAILY 05/01/19 03/12/20 History Magnesium Oxide 420mg 420 mg PO DAILY 03/12/20 03/12/20 History Allergies Allergy/AdvReac Type Severity Reaction Status Date / Time No Known Allergies Allergy Verified 03/12/20 18:37 Physical Exam Vitals: Vital Signs Temp Pulse Pulse Resp BP BP Pulse Ox 03/13/20 08:00 98.2 F 82 18 99/52 96 03/13/20 04:11 98.7 F 90 16 109/64 98 03/12/20 23:21 110 H 16 103/56 100 03/12/20 20:50 98.6 F 116 H 18 111/62 96 03/12/20 18:44 118 H 18 122/67 92 L 03/12/20 17:59 91 03/12/20 17:51 97 03/12/20 17:00 93 18 129/85 98 03/12/20 16:02 95 18 113/95 97 03/12/20 15:14 96.3 F L 99 20 110/64 93 L Intake and Output 03/12/20 03/13/20 03/13/20 22:59 06:59 14:59 Output Total 200 Balance -200 Output: Urine 200 Other: Voiding Method Urinal Urinal # Voids 0 1 Weight 56.699 kg 58 kg General Appearance: Alert, cooperative, no distress, appears older than his a Neck HEENT: Supple, no lymphadenopathy, no thyroid enlargement, no carotid bruits. Lungs: Decreased breath sound bilaterally with fine rhonchi positive mild expiratory wheezes. Chest Wall: Decrease expansion with deep inspiration no tenderness and no deformity was found on exam, no costochondral pain or discomfort. Heart: Irregular rate and rhythm, S1, S2 positive S3 positive PVCs Back: Symmetric, no curvature, ROM normal, no CVA tenderness. Abdomen: Soft, non-tender, bowel sounds active all four quadrants, no masses, no organomegaly. Extremities: Extremities normal, atraumatic, no cyanosis or edema. Slight discoloration from the knee down. Pulses: 2+ and symmetric. Skin: Skin color, texture, tugor normal, no rashes or lesions. Neurologic: Alert oriented with slight confusion cranial nerves II through XII intact, generalized motor weakness, positive abnormal balance or gait. Results CBC & Chem 7: 03/13/20 08:04 03/13/20 08:04 Labs: Abnormal Lab Results - Last 24 Hours (Table) 03/12/20 03/12/20 03/12/20 Range/Units 15:39 15:39 15:39 WBC 15.1 H (3.8-10.6) k/uL RBC 3.19 L (4.30-5.90) m/uL Hgb 10.7 L (13.0-17.5) gm/dL Hct 33.0 L (39.0-53.0) % MCV 103.7 H (80.0-100.0) fL Plt Count 471 H (150-450) k/uL Neutrophils # 14.0 H (1.3-7.7) k/uL Lymphocytes # 0.4 L (1.0-4.8) k/uL APTT 30.1 H (22.0-30.0) sec Sodium (137-145) mmol/L Potassium 6.7 H* (3.5-5.1) mmol/L Chloride 114 H (98-107) mmol/L Carbon Dioxide 7 L* (22-30) mmol/L BUN 106 H* (9-20) mg/dL Creatinine 5.29 H (0.66-1.25) mg/dL Glucose 162 H (74-99) mg/dL Magnesium 1.4 L (1.6-2.3) mg/dL AST 16 L (17-59) U/L Alkaline Phosphatase 134 H (38-126) U/L Total Protein (6.3-8.2) g/dL Albumin (3.5-5.0) g/dL 03/12/20 03/13/20 03/13/20 Range/Units 18:01 08:04 08:04 WBC (3.8-10.6) k/uL RBC 2.45 L (4.30-5.90) m/uL Hgb 8.4 L D (13.0-17.5) gm/dL Hct 24.5 L (39.0-53.0) % MCV (80.0-100.0) fL Plt Count (150-450) k/uL Neutrophils # (1.3-7.7) k/uL Lymphocytes # 0.4 L (1.0-4.8) k/uL APTT (22.0-30.0) sec Sodium 135 L (137-145) mmol/L Potassium 6.1 H* (3.5-5.1) mmol/L Chloride 111 H (98-107) mmol/L Carbon Dioxide 13 L (22-30) mmol/L BUN 104 H* (9-20) mg/dL Creatinine 4.22 H (0.66-1.25) mg/dL Glucose 138 H (74-99) mg/dL Magnesium 2.5 H (1.6-2.3) mg/dL AST 16 L (17-59) U/L Alkaline Phosphatase (38-126) U/L Total Protein 5.6 L (6.3-8.2) g/dL Albumin 2.8 L (3.5-5.0) g/dL Thrombosis Risk Factor Assmnt - DVT/VTE Prophylaxis DVT/VTE Prophylaxis: Mechanical Prophylaxis ordered - Choose All That Apply Any of the Below Risk Factors Present?: Yes Each Risk Factor Represents 3 Points: Age 75 years or older Thrombosis Risk Factor Assessment Total Risk Factor Score: 3 Thrombosis Risk Factor Assessment Level: Moderate Risk Assessment and Plan Assessment: 1 acute kidney failure: Most likely secondary to ATN, patient also had bilateral chronic hydronephrosis not a clear etiology will have urology consultation will be done as well. 2 bilateral hydronephrosis not a clear etiology whether related to prostate canc er or obstruction not clear patient might require Kaiser catheter as well. 3 A. fib: Patient remain on the flecainide and metoprolol is not on any anticoagulation currently most likely because of higher on for fall and injury. 4 hypertension was on beta mejia with metoprolol. 5 severe hyperkalemia: Continue to treat his potassium and continue to work on improving his kidney function for better control of longer on. 6 chronic anemia: Most likely iron deficiency and could be combination of GI bleed and chronic kidney disease patient might benefit from iron infusion along with Procrit. 7 hyperglycemia: Continue Accu-Chek with sliding scales coverage. 8. Prostate cancer post radiation. 9 recurrent UTI with no UA done this time will try to do Kaiser catheter and UA culture possible. 10 DVT prophylaxis: Venodyne boots and early mobilization. 11 GI prophylaxis: Patient be on Pepcid 20 mg daily. CODE STATUS: Full code. Admit patient to inpatient status for more than 2 night stay.
--- NOTE | 2020-03-13 13:27 | P.NPCON ---
History of Present Illness - Reason for Consult Consult date: 03/13/20 acute renal failure, hyperkalemia - Chief Complaint Not feeling well - History of Present Illness History of obstructive uropathy with hydronephrosis recently admitted and discharged. Coming in with not feeling well with elevated BUN/creatinine and potassium. Previous admission computed tomography scan suggestive of bilateral hydronephrosis and started improving with Kaiser catheter. Baseline creatinine about 1.8-2.2 MG per DL with a CK D stage III. Very debilitated. No recent contrast studies or NSAID use. Currently do not have a Kaiser catheter. Review of Systems Constitutional: Reports as per HPI Past Medical History Past Medical History: Atrial Fibrillation, Cancer, Hypertension, Prostate Disorder, Renal Disease Additional Past Medical History / Comment(s): Prosate cancer with radiation, kidney stones passed on his own and surgically removed, UTIs, chronic low back pain, occasional sinus problems. [place]. History of Any Multi-Drug Resistant Organisms: MRSA Date of last positivie culture/infection: 2017 MDRO Source:: urine? family/pt unsure Past Surgical History: Appendectomy, Hernia Repair, Orthopedic Surgery Additional Past Surgical History / Comment(s): Lithotripsy, hiatal hernia repair, L knee open surgery to "clean it out", colonoscopy, circumcism later in life d/t UTIs. Past Anesthesia/Blood Transfusion Reactions: No Reported Reaction Past Psychological History: No Psychological Hx Reported Additional Psychological History / Comment(s): Pt resides with his son. He uses a cane to ambulate. He no longer drives, his son takes him to appts. Son states that he, himself was recently hospitalized for a lengthy time and when he got back home, pt's meds were "screwed up". Smoking Status: Never smoker Past Alcohol Use History: None Reported Additional Past Alcohol Use History / Comment(s): Patient was a smoker one pack per day for 40 years and quit 35 years ago. He denies any alcohol use. Patient lives with his son. He uses a cane for ambulation. He denies any recent falls. Past Drug Use History: None Reported - Past Family History Father Family Medical History: Hypertension Additional Family Medical History / Comment(s): Father at age 82 from old age. Mother Additional Family Medical History / Comment(s): Mother at age 82 and was in a coma at the time. Patient is unsure of cause of her or causative coma. Brother(s) Additional Family Medical History / Comment(s): Patient has 1 brother that is . He is not know any of his medical history. Patient does not have any sisters. Patient has 4 daughters and 4 sons with no major medical problems. Medications and Allergies Home Medications Medication Instructions Recorded Confirmed Type Cyanocobalamin [Vitamin B-12] 500 mcg PO BID 05/01/19 03/12/20 History Flecainide Acetate 50 mg PO BID 05/01/19 03/12/20 History Metoprolol Tartrate [Lopressor] 25 mg PO BID 05/01/19 03/12/20 History Tamsulosin [Flomax] 0.4 mg PO DAILY 05/01/19 03/12/20 History Magnesium Oxide 420mg 420 mg PO DAILY 03/12/20 03/12/20 History Allergies Allergy/AdvReac Type Severity Reaction Status Date / Time No Known Allergies Allergy Verified 03/12/20 18:37 Physical Exam Vitals: Vital Signs Temp Pulse Pulse Resp BP BP Pulse Ox 03/13/20 12:19 18 03/13/20 12:00 98.3 F 91 18 104/64 97 03/13/20 08:00 98.2 F 82 18 99/52 96 03/13/20 04:11 98.7 F 90 16 109/64 98 03/12/20 23:21 110 H 16 103/56 100 03/12/20 20:50 98.6 F 116 H 18 111/62 96 03/12/20 18:44 118 H 18 122/67 92 L 03/12/20 17:59 91 03/12/20 17:51 97 03/12/20 17:00 93 18 129/85 98 03/12/20 16:02 95 18 113/95 97 03/12/20 15:14 96.3 F L 99 20 110/64 93 L Intake and Output 03/12/20 03/13/20 03/13/20 22:59 06:59 14:59 Output Total 200 Balance -200 Output: Urine 200 Other: Voiding Method Urinal Urinal # Voids 0 1 Weight 56.699 kg 58 kg 58 kg No acute distress S1-S2 heard Diminished breath sounds No edema Results - Lab Results Most recent lab results Calcium 8.4 mg/dL (8.4-10.2) 03/13/20 08:04 Magnesium 2.5 mg/dL (1.6-2.3) H 03/13/20 08:04 03/13/20 08:04 03/13/20 08:04 Assessment and Plan Assessment: #1 acute kidney injury suspect prerenal process with decreased by mouth intake and obstructive uropathy with bilateral hydronephrosis. #2 obstructive uropathy suspect NGUYEN secondary to underlying prostate cancer. #3 hyperkalemia secondary to acute kidney injury and obstruction obstruction #4 metabolic acidosis secondary to acute kidney injury #5 chronic kidney disease stage III with a baseline creatinine of 1.8-2.0 MG per DL. Plan: #1 bladder scan and Kaiser catheter. #2 change fluids to bicarb drip at 75 ML's an hour. #3 urology evaluation #4 avoid nephrotoxic agents and hypotensive episodes #5 medical management for hyperkalemia
[2020-03-13] MEDS: DEXTROSE 5% IN WATER 1,000 ML with SODIUM BICARB (1 MEQ/ML) 150 ML IV SCH (16:01)
[2020-03-13 20:13] LABS: Appearance,Urine Cloudy (Clear); Bacteria,Urine Occasional /hpf; Bilirubin,Urine Negative (Negative); Blood,Urine Moderate (Negative); Color,Urine Yellow; Glucose,Urine (UA) Negative (Negative); Ketones,Urine Negative (Negative); Leukocyte Esterase,Urine Large (Negative); Nitrite,Urine Negative (Negative); Protein,Urine 2+ (Negative); RBC,Urine >182 /hpf (0-5); Specific Gravity,Urine 1.011 (1.001-1.035); Urobilinogen,Urine <2.0 mg/dL (<2.0); WBC,Urine >182 /hpf (0-5)
[2020-03-14] MEDS: DEXTROSE 5% IN WATER 1,000 ML with SODIUM BICARB (1 MEQ/ML) 150 ML IV SCH ×2 (05:52→21:39)
[2020-03-14] MEDS: FLECAINIDE 50 MG TAB PO SCH ×2 (08:08→21:37)
[2020-03-14] MEDS: MAGNESIUM OXIDE 400 MG TAB PO SCH (08:08)
[2020-03-14] MEDS: CYANOCOBALAMIN 500 MCG TAB PO SCH (08:09)
[2020-03-14] MEDS: METOPROLOL TARTRATE 25 MG TAB PO SCH ×2 (08:09→21:37)
[2020-03-14] MEDS: TAMSULOSIN 0.4 MG CAP.ER.24H PO SCH (08:09)
[2020-03-14] MEDS: HYDROcodone/APAP 5-325MG 1 EACH TAB PO PRN ×2 (08:18→21:37)
--- NOTE | 2020-03-14 09:24 | P.GSCN ---
History of Present Illness Consult date: 03/14/20 History of present illness: This is an 89-year-old gentleman we are asked to see in consultation for bilateral hydronephrosis. The patient is known to in the past for urine retention, prostate cancer. The patient was treated prostate cancer in [place] several years ago with radiation therapy and LHRH therapy. Status of his cancer is unknown. The patient is interviewed at the bedside and is very hard of hearing with minimal recall. The patient was last seen in our office after having been in the hospital in urine retention. He never followed up. e patient was found to have a creatinine of 5.2 on admission plus other multiple medical issues. Nephrology was asked to see the patient. He is catheterized for 400 mL of cloudy urine. Today's creatinine is pending. The patient can give me no further history. Urine is infected. Review of Systems ROS unobtainable: due to mental status Past Medical History Past Medical History: Atrial Fibrillation, Cancer, Hypertension, Prostate Disorder, Renal Disease Additional Past Medical History / Comment(s): Prosate cancer with radiation, kidney stones passed on his own and surgically removed, UTIs, chronic low back pain, occasional sinus problems. [place]. History of Any Multi-Drug Resistant Organisms: MRSA Year Discovered:: 2018 MDRO Source:: urine? family/pt unsure Past Surgical History: Appendectomy, Hernia Repair, Orthopedic Surgery Additional Past Surgical History / Comment(s): Lithotripsy, hiatal hernia repair, L knee open surgery to "clean it out", colonoscopy, circumcism later in life d/t UTIs. Past Anesthesia/Blood Transfusion Reactions: No Reported Reaction Past Psychological History: No Psychological Hx Reported Additional Psychological History / Comment(s): Pt resides with his son. He uses a cane to ambulate. He no longer drives, his son takes him to appts. Son states that he, himself was recently hospitalized for a lengthy time and when he got back home, pt's meds were "screwed up". Smoking Status: Never smoker Past Alcohol Use History: None Reported Additional Past Alcohol Use History / Comment(s): Patient was a smoker one pack per day for 40 years and quit 35 years ago. He denies any alcohol use. Patient lives with his son. He uses a cane for ambulation. He denies any recent falls. Past Drug Use History: None Reported - Past Family History Father Family Medical History: Hypertension Additional Family Medical History / Comment(s): Father at age 82 from old age. Mother Additional Family Medical History / Comment(s): Mother at age 82 and was in a coma at the time. Patient is unsure of cause of her or causative coma. Brother(s) Additional Family Medical History / Comment(s): Patient has 1 brother that is . He is not know any of his medical history. Patient does not have any sisters. Patient has 4 daughters and 4 sons with no major medical problems. Medications and Allergies Home Medications Medication Instructions Recorded Confirmed Type Cyanocobalamin [Vitamin B-12] 500 mcg PO BID 05/01/19 03/12/20 History Flecainide Acetate 50 mg PO BID 05/01/19 03/12/20 History Metoprolol Tartrate [Lopressor] 25 mg PO BID 05/01/19 03/12/20 History Tamsulosin [Flomax] 0.4 mg PO DAILY 05/01/19 03/12/20 History Magnesium Oxide 420mg 420 mg PO DAILY 03/12/20 03/12/20 History Allergies Allergy/AdvReac Type Severity Reaction Status Date / Time No Known Allergies Allergy Verified 03/12/20 18:37 Surgical - Exam Vital Signs Temp Pulse Resp BP Pulse Ox 96.3 F L 99 20 110/64 93 L 03/12/20 15:14 03/12/20 15:14 03/12/20 15:14 03/12/20 15:14 03/12/20 15:14 - General well developed, no pain, cachectic - Eyes PERRL - ENT decreased hearing - Neck no masses - Respiratory normal expansion, normal respiratory effort - Cardiovascular Rhythm: regular - Abdomen Abdomen: soft, non tender - Genitourinary Indwelling catheter with cloudy infected looking urine normal penis with no external lesions, testicles present - Neurologic normal coordination, normal sensation - Musculoskeletal normal posture - Psychiatric oriented to person, oriented to place Results - Labs 03/13/20 08:04 03/13/20 08:04 Abnormal Lab Results - Last 24 Hours (Table) 03/13/20 Range/Units 19:38 Urine Protein 2+ H (Negative) Urine Blood Moderate H (Negative) Ur Leukocyte Esterase Large H (Negative) Urine RBC >182 H (0-5) /hpf Urine WBC >182 H (0-5) /hpf Urine WBC Clumps Many H (None) /hpf Urine Bacteria Occasional H (None) /hpf - Imaging US - kidney/bladder: report reviewed Assessment and Plan Assessment: Impression: A lot of hydronephrosis due to chronic urine retention possibly aggravated by supravesical obstruction. Prostate cancer status post radiation therapy, LHRH therapy status unknown. Urinary tract infection. Multiple medical illnesses. Recommendations: The catheter should remain indwelling. We will repeat a creatinine and do a PSA today to get further status of his situation so as to determine whether further evaluation is required.
[2020-03-14 12:13] LABS: Basophils % (A) 0 %; Eosinophils % (A) 0 %; HCT 24.9 % (39.0-53.0); HGB 8.4 gm/dL (13.0-17.5); Lymphocytes # (A) 0.6 k/uL (1.0-4.8); Lymphocytes % (A) 7 %; MCH 34.3 pg (25.0-35.0); MCHC 33.7 g/dL (31.0-37.0); MCV 101.7 fL (80.0-100.0); Macrocytosis Slight; Mean Platelet Volume 7.9; Monocytes # (A) 0.8 k/uL (0-1.0); Monocytes % (A) 10 %; Neutrophils % (A) 82 %; Platelet Count 248 k/uL (150-450); RBC 2.45 m/uL (4.30-5.90); RDW 12.8 % (11.5-15.5); WBC 8.5 k/uL (3.8-10.6)
[2020-03-14 12:22] LABS: Albumin 2.8 g/dL (3.5-5.0); Calcium 7.9 mg/dL (8.4-10.2); Potassium 4.4 mmol/L (3.5-5.1); Total Bilirubin 0.5 mg/dL (0.2-1.3); Total Protein 5.6 g/dL (6.3-8.2)
--- NOTE | 2020-03-14 13:15 | P.PN ---
Subjective Progress Note Date: 03/14/20 Follow-up for acute kidney injury. Kaiser catheter was placed. Good urine output. Objective - Vital Signs Vital signs: Vital Signs Temp 98 F 03/14/20 11:37 Pulse 89 03/14/20 11:37 Resp 18 03/14/20 11:37 BP 98/66 03/14/20 11:37 Pulse Ox 96 03/14/20 11:37 Intake & Output 03/13/20 03/14/20 03/14/20 18:59 06:59 18:59 Output Total 600 1325 Balance -600 -1325 Weight 58 kg 67.5 kg Output: Urine 600 1325 Uretheral (Kaiser) 400 Other: Voiding Method Indwelling Catheter Indwelling Catheter # Voids 3 # Bowel Movements 1 1 - Exam No acute distress S1-S2 heard Lungs clear No edema - Labs CBC & Chem 7: 03/14/20 11:13 03/14/20 11:13 Labs: Abnormal Lab Results - Last 24 Hours (Table) 03/13/20 03/14/20 03/14/20 Range/Units 19:38 11:13 11:13 RBC 2.45 L (4.30-5.90) m/uL Hgb 8.4 L (13.0-17.5) gm/dL Hct 24.9 L (39.0-53.0) % MCV 101.7 H (80.0-100.0) fL Lymphocytes # 0.6 L (1.0-4.8) k/uL Sodium 134 L (137-145) mmol/L BUN 83 H (9-20) mg/dL Creatinine 3.22 H (0.66-1.25) mg/dL Glucose 134 H (74-99) mg/dL Calcium 7.9 L (8.4-10.2) mg/dL AST 16 L (17-59) U/L Total Protein 5.6 L (6.3-8.2) g/dL Albumin 2.8 L (3.5-5.0) g/dL Urine Protein 2+ H (Negative) Urine Blood Moderate H (Negative) Ur Leukocyte Esterase Large H (Negative) Urine RBC >182 H (0-5) /hpf Urine WBC >182 H (0-5) /hpf Urine WBC Clumps Many H (None) /hpf Urine Bacteria Occasional H (None) /hpf Microbiology - Last 24 Hours (Table) 03/13/20 19:38 Urine Culture - Preliminary Urine,Clean Catch Assessment and Plan Assessment: #1 acute kidney injury suspect prerenal process with decreased by mouth intake and obstructive uropathy with bilateral hydronephrosis. #2 obstructive uropathy suspect NGUYEN secondary to underlying prostate cancer. #3 hyperkalemia secondary to acute kidney injury and obstruction obstruction #4 metabolic acidosis secondary to acute kidney injury #5 chronic kidney disease stage III with a baseline creatinine of 1.8-2.0 MG per DL. Plan: #1 renal function improving after Kaiser. Appreciate urology input. #2 continue bicarb drip at 75 ML's an hour. #3 avoid nephrotoxic agents and hypotensive episodes #4 medical management for hyperkalemia
--- NOTE | 2020-03-14 15:53 | P.PN ---
Subjective Progress Note Date: 03/14/20 cr down to 3.2 urine c&s pending Objective - Vital Signs Vital signs: Vital Signs Temp 98 F 03/14/20 11:37 Pulse 89 03/14/20 11:37 Resp 18 03/14/20 11:37 BP 98/66 03/14/20 11:37 Pulse Ox 96 03/14/20 11:37 Intake & Output 03/13/20 03/14/20 03/14/20 18:59 06:59 18:59 Output Total 600 1325 Balance -600 -1325 Weight 58 kg 67.5 kg Output: Urine 600 1325 Uretheral ([facility]) 400 Other: Voiding Method Indwelling Catheter Indwelling Catheter # Voids 3 # Bowel Movements 1 1 - Labs CBC & Chem 7: 03/14/20 11:13 03/14/20 11:13 Labs: Abnormal Lab Results - Last 24 Hours (Table) 03/13/20 03/14/20 03/14/20 Range/Units 19:38 11:13 11:13 RBC 2.45 L (4.30-5.90) m/uL Hgb 8.4 L (13.0-17.5) gm/dL Hct 24.9 L (39.0-53.0) % MCV 101.7 H (80.0-100.0) fL Lymphocytes # 0.6 L (1.0-4.8) k/uL Sodium 134 L (137-145) mmol/L BUN 83 H (9-20) mg/dL Creatinine 3.22 H (0.66-1.25) mg/dL Glucose 134 H (74-99) mg/dL Calcium 7.9 L (8.4-10.2) mg/dL AST 16 L (17-59) U/L Total Protein 5.6 L (6.3-8.2) g/dL Albumin 2.8 L (3.5-5.0) g/dL Urine Protein 2+ H (Negative) Urine Blood Moderate H (Negative) Ur Leukocyte Esterase Large H (Negative) Urine RBC >182 H (0-5) /hpf Urine WBC >182 H (0-5) /hpf Urine WBC Clumps Many H (None) /hpf Urine Bacteria Occasional H (None) /hpf Microbiology - Last 24 Hours (Table) 12/19/20 19:38 Urine Culture - Preliminary Urine,Clean Catch
--- NOTE | 2020-03-15 05:14 | P.PN ---
Subjective Progress Note Date: 03/14/20 Principal diagnosis: Acute kidney failure, acute kidney injury, severe generalized symptoms, his 89-year-old male one of Dr. Ramos's patient with past medical history of A. fib, hypertension, stage III chronic kidney disease, history of kidney stone, recu rrent irretractable infection, prostate cancer, history of urinary retention require full catheter in the past who seen urology regular basis, patient also used to live in [place] and used to see urologist on regular basis has been in [facility] for the last year patient continued to have generalized symptoms on and off he was hospitalized last at [facility] in May 19 acute kidney injury and acute kidney failure also had possible history of ventricular arrhythmia was on flecainide that time by the [place] doctor for not no reason. Patient seen nephrology in [facility] and Dr. Ramos on regular basis he presented to the emergency department last night with malaise fatigue and not feeling well over all without any complaint of abdominal pain or change in urination is still having significant decrease in her urine output family were not aware that patient is sick with his presentation with the fatigue tiredness found to have potassium of 6.7 with creatinine of 5.29 with bun of 106 patient hemoglobin was 10.7. Patient also has a BNP of 4350 with significantly elevated blood sugar at the time. Nephrology were called and patient was treated for hyperkalemia in the emergency room brought his number down to 6.1 and furthermore after midnight to 4.9 his bun still 104 with creatinine of 4.22 patient is in acute kidney failure at this time with acute kidney injury most likely ATN on a chronic kidney disease most likely few urinary retention. Bilateral severe hydronephrosis was found on ultrasound of the kidney with no evidence of solid renal mass that similar to what patient had in his CAT SCAN back in 05/02/2019. We'll consult nephrology and urology for possible needing stent and continue hydration continue supportive care for the kidney. 03/14: Patient is doing very well his creatinine is down from yesterday his urine was very positive patient was started on Rocephin until seen the final report of his culture the meanwhile urology and nephrology are seen patient no other patient is given require any intervention or not specially with his bilateral severe hydronephrosis. Objective - Vital Signs Vital signs: Vital Signs Temp 98.1 F 03/14/20 03:45 Pulse 76 12/20/20 03:45 Resp 16 03/14/20 03:45 BP 130/59 03/14/20 03:45 Pulse Ox 100 03/14/20 03:45 Intake & Output 03/13/20 03/13/20 03/14/20 06:59 18:59 06:59 Output Total 600 1325 Balance -600 -1325 Weight 58 kg 58 kg 67.5 kg Output: Urine 600 1325 Uretheral (Kaiser) 400 Other: Voiding Method Urinal Indwelling Catheter # Voids 0 3 # Bowel Movements 1 1 - Exam Review of Systems CONSTITUTIONAL: Look malnourished although than his age in no acute despite a distress EYES: No icterus sclerae, no conjunctivitis. EARS, NOSE, MOUTH, THROAT, and FACE: No sore throat, lymphadenopathy, carotid bruits or deformity. RESPIRATORY: Mild shortness of breath no cough or wheezes. CARDIOVASCULAR: Positive PND or troponin palpitation. GASTROINTESTINAL: No Abd pain, Nausea or vomiting, no Diarrhea or constipation, No GI Bleed, no distention or masses. GENITOURINARY: Decrease urine output with chronic kidney disease. INTEGUMENT/BREAST: Negative for any muscular injury with mild osteoarthritis.. HEMATOLOGIC/LYMPHATIC: Negative for bleed or purpura. MUSCULOSKELTAL: Negative for Myalgia or arthralgia. NEURLOGICAL: Mild altered mental status with no syncope no blurred vision slight dizziness and abnormal balance and gait. BEHAVIORAL/PSYCH: Negative. ENDOCRINE: Negative. Medications and Allergies Home Medications Medication Instructions Recorded Confirmed Type Cyanocobalamin [Vitamin B-12] 500 mcg PO BID 05/01/19 03/12/20 History Flecainide Acetate 50 mg PO BID 05/01/19 03/12/20 History Metoprolol Tartrate [Lopressor] 25 mg PO BID 05/01/19 03/12/20 History Tamsulosin [Flomax] 0.4 mg PO DAILY 05/01/19 03/12/20 History Magnesium Oxide 420mg 420 mg PO DAILY 03/12/20 03/12/20 History Allergies Allergy/AdvReac Type Severity Reaction Status Date / Time No Known Allergies Allergy Verified 03/12/20 18:37 Physical Exam Vitals: Vital Signs Temp Pulse Pulse Resp BP BP Pulse Ox 03/13/20 08:00 98.2 F 82 18 99/52 96 03/13/20 04:11 98.7 F 90 16 109/64 98 03/12/20 23:21 110 H 16 103/56 100 03/12/20 20:50 98.6 F 116 H 18 111/62 96 03/12/20 18:44 118 H 18 122/67 92 L 03/12/20 17:59 91 03/12/20 17:51 97 03/12/20 17:00 93 18 129/85 98 03/12/20 16:02 95 18 113/95 97 03/12/20 15:14 96.3 F L 99 20 110/64 93 L Intake and Output 03/12/20 03/13/20 03/13/20 22:59 06:59 14:59 Output Total 200 Balance -200 Output: Urine 200 Other: Voiding Method Urinal Urinal # Voids 0 1 Weight 56.699 kg 58 kg General Appearance: Alert, cooperative, no distress, appears older than his a Neck HEENT: Supple, no lymphadenopathy, no thyroid enlargement, no carotid bruits. Lungs: Decreased breath sound bilaterally with fine rhonchi positive mild expiratory wheezes. Chest Wall: Decrease expansion with deep inspiration no tenderness and no deformity was found on exam, no costochondral pain or discomfort. Heart: Irregular rate and rhythm, S1, S2 positive S3 positive PVCs Back: Symmetric, no curvature, ROM normal, no CVA tenderness. Abdomen: Soft, non-tender, bowel sounds active all four quadrants, no masses, no organomegaly. Extremities: Extremities normal, atraumatic, no cyanosis or edema. Slight discoloration from the knee down. Pulses: 2+ and symmetric. Skin: Skin color, texture, tugor normal, no rashes or lesions. Neurologic: Alert oriented with slight confusion cranial nerves II through XII intact, generalized motor weakness, positive abnormal balance or gait. - Labs CBC & Chem 7: 03/14/20 11:13 03/14/20 11:13 Labs: Abnormal Lab Results - Last 24 Hours (Table) 03/13/20 03/13/20 03/13/20 Range/Units 08:04 08:04 19:38 RBC 2.45 L (4.30-5.90) m/uL Hgb 8.4 L D (13.0-17.5) gm/dL Hct 24.5 L (39.0-53.0) % Lymphocytes # 0.4 L (1.0-4.8) k/uL Sodium 135 L (137-145) mmol/L Chloride 111 H (98-107) mmol/L Carbon Dioxide 13 L (22-30) mmol/L BUN 104 H* (9-20) mg/dL Creatinine 4.22 H (0.66-1.25) mg/dL Glucose 138 H (74-99) mg/dL Magnesium 2.5 H (1.6-2.3) mg/dL AST 16 L (17-59) U/L Total Protein 5.6 L (6.3-8.2) g/dL Albumin 2.8 L (3.5-5.0) g/dL Urine Protein 2+ H (Negative) Urine Blood Moderate H (Negative) Ur Leukocyte Esterase Large H (Negative) Urine RBC >182 H (0-5) /hpf Urine WBC >182 H (0-5) /hpf Urine WBC Clumps Many H (None) /hpf Urine Bacteria Occasional H (None) /hpf Assessment and Plan Assessment: 1 acute kidney failure: Most likely secondary to ATN, patient also had bilateral chronic hydronephrosis not a clear etiology will have urology consultation will be done as well. Patient had severe infection which will be treated as well 2 bilateral hydronephrosis not a clear etiology whether related to prostate cancer or obstruction not clear patient might require Kaiser catheter as well. Treat infection continue hydration repeat BUN/creatinine 3 A. fib: Patient remain on the flecainide and metoprolol is not on any anticoagulation currently most likely because of higher on for fall and injury. 4 hypertension was on beta mejia with metoprolol. 5 severe hyperkalemia: Continue to treat his potassium and continue to work on improving his kidney function for better control of longer on. 6 chronic anemia: Most likely iron deficiency and could be combination of GI bleed and chronic kidney disease patient might benefit from iron infusion along with Procrit. 7 hyperglycemia: Continue Accu-Chek with sliding scales coverage. 8. Prostate cancer post radiation. 9 recurrent UTI with no UA done this time will try to do Kaiser catheter and UA culture possible. UA is positive pending culture. 10 DVT prophylaxis: Venodyne boots and early mobilization. 11 GI prophylaxis: Patient be on Pepcid 20 mg daily. Urine culture still pending but UA was positive patient was started on Rocephin for UTI.
[2020-03-15] MEDS: TAMSULOSIN 0.4 MG CAP.ER.24H PO SCH (09:34)
[2020-03-15] MEDS: MAGNESIUM OXIDE 400 MG TAB PO SCH (09:34)
[2020-03-15] MEDS: CYANOCOBALAMIN 500 MCG TAB PO SCH (09:34)
[2020-03-15] MEDS: METOPROLOL TARTRATE 25 MG TAB PO SCH ×2 (09:34→20:00)
[2020-03-15] MEDS: FLECAINIDE 50 MG TAB PO SCH ×2 (09:34→20:00)
[2020-03-15] MEDS: DEXTROSE 5% IN WATER 1,000 ML with SODIUM BICARB (1 MEQ/ML) 150 ML IV SCH (09:39)
[2020-03-15 10:00] LABS: HCT 24.9 % (39.0-53.0); HGB 8.1 gm/dL (13.0-17.5); MCH 33.2 pg (25.0-35.0); MCHC 32.5 g/dL (31.0-37.0); MCV 102.4 fL (80.0-100.0); Macrocytosis Slight; Mean Platelet Volume 7.2; Platelet Count 262 k/uL (150-450); RBC 2.43 m/uL (4.30-5.90); WBC 8.8 k/uL (3.8-10.6)
[2020-03-15 10:03] LABS: Albumin 2.6 g/dL (3.5-5.0); Calcium 7.9 mg/dL (8.4-10.2); Total Bilirubin 0.5 mg/dL (0.2-1.3); Total Protein 5.4 g/dL (6.3-8.2)
--- NOTE | 2020-03-15 11:27 | P.PN ---
Subjective She was seen in follow-up for acute kidney injury on chronic kidney disease. Patient has chronic kidney disease stage IIIB with baseline creatinine 1.8-2. Creatinine was 5.2 on admission and is down to 2.9 today. Has a Kaiser catheter. Maintained on bicarb drip. Acidosis resolved. Oral intake fair. No chest pain or shortness of breath. Blood pressure stable. Vital signs are stable. General: The patient appeared well nourished and normally developed. HEENT: Head exam is unremarkable. Neck is without jugular venous distension. LUNGS: Breath sounds decreased. HEART: Rate and Rhythm are regular. ABDOMEN: Soft, nontender. EXTREMITITES: No edema. Objective - Vital Signs Vital signs: Vital Signs Temp 99 F 03/15/20 08:00 Pulse 87 03/15/20 08:00 Resp 18 03/15/20 08:00 BP 115/53 03/15/20 08:00 Pulse Ox 98 03/15/20 08:00 Intake & Output 03/14/20 03/15/20 03/15/20 18:59 06:59 18:59 Intake Total 600 Output Total 1020 Balance -420 Intake: Intake, IV Titration 600 Amount Dextrose 5% in Water 1, 600 000 ml @ 75 mls/hr IV . [id number] SAHIL with Sodium Bicarb (1 Meq/ml) 150 ml Rx#:[id number] Output: Urine 1020 Other: Voiding Method Indwelling Catheter Indwelling Catheter Indwelling Catheter - Labs CBC & Chem 7: 03/15/20 08:59 03/15/20 08:59 Labs: Abnormal Lab Results - Last 24 Hours (Table) 03/14/20 03/14/20 03/15/20 Range/Units 11:13 11:13 08:59 RBC 2.45 L 2.43 L (4.30-5.90) m/uL Hgb 8.4 L 8.1 L (13.0-17.5) gm/dL Hct 24.9 L 24.9 L (39.0-53.0) % MCV 101.7 H 102.4 H (80.0-100.0) fL Lymphocytes # 0.6 L (1.0-4.8) k/uL Sodium 134 L (137-145) mmol/L BUN 83 H (9-20) mg/dL Creatinine 3.22 H (0.66-1.25) mg/dL Glucose 134 H (74-99) mg/dL Calcium 7.9 L (8.4-10.2) mg/dL AST 16 L (17-59) U/L Total Protein 5.6 L (6.3-8.2) g/dL Albumin 2.8 L (3.5-5.0) g/dL 03/15/20 Range/Units 08:59 RBC (4.30-5.90) m/uL Hgb (13.0-17.5) gm/dL Hct (39.0-53.0) % MCV (80.0-100.0) fL Lymphocytes # (1.0-4.8) k/uL Sodium 133 L (137-145) mmol/L BUN 76 H (9-20) mg/dL Creatinine 2.93 H (0.66-1.25) mg/dL Glucose 179 H (74-99) mg/dL Calcium 7.9 L (8.4-10.2) mg/dL AST (17-59) U/L Total Protein 5.4 L (6.3-8.2) g/dL Albumin 2.6 L (3.5-5.0) g/dL Microbiology - Last 24 Hours (Table) 03/13/20 19:38 Urine Culture - Preliminary Urine,Clean Catch Assessment and Plan Plan: Assessment: 1. Acute kidney injury secondary to obstructive uropathy. Creatinine was 5.29 at admission and is 2.93 today. Nonoliguric. 2. Bilateral hydronephrosis. Has a Kaiser catheter. Urology following. 3. Metabolic acidosis secondary to acute kidney injury. Resolved. Maintained on bicarb drip. 4. Chronic kidney disease stage III with baseline creatinine in the range of 1.8-2. 5. Hyperkalemia secondary to acute kidney injury and obstructive uropathy. Resolved. 6. Anemia of chronic kidney disease. Rule out iron deficiency. Plan: Stop bicarb drip. Start normal saline at 75 mL an hour. Check iron studies. Maintain Kaiser catheter. Continue to monitor renal function and urine output.
--- NOTE | 2020-03-15 12:13 | P.PN ---
Subjective 89-year-old male one of Dr. Ramos's patient with past medical history of A. fib, hypertension, stage III chronic kidney disease, history of kidney stone, recurrent irretractable infection, prostate cancer, history of urinary retention require full catheter in the past who seen urology regular basis, patient also used to live in [place] and used to see urologist on regular basis has been in town for the last year patient continued to have generalized symptoms on and off he was hospitalized last at [facility] in May 19 acute kidney i njury and acute kidney failure also had possible history of ventricular arrhythmia was on flecainide that time by the [place] doctor for not no reason. Patient seen nephrology in [facility] and Dr. Ramos on regular basis he presented to the emergency department last night with malaise fatigue and not feeling well overall without any complaint of abdominal pain or change in urination is still having significant decrease in her urine output family were not aware that patient is sick with his presentation with the fatigue tiredness found to have potassium of 6.7 with creatinine of 5.29 with bun of 106 patient hemoglobin was 10.7. Patient also has a BNP of 4350 with significantly elevated blood sugar at the time. Nephrology were called and patient was treated for hyperkalemia in the emergency room brought his number down to 6.1 and furthermore after midnight to 4.9 his bun still 104 with creatinine of 4.22 patient is in acute kidney failure at this time with acute kidney injury most likely ATN on a chronic kidney disease most likely few urinary retention. Bilateral severe hydronephrosis was found on ultrasound of the kidney with no evidence of solid renal mass that similar to what patient had in his CAT SCAN back in 05/02/2019. We'll consult nephrology and urology for possible needing stent and continue hydration continue supportive care for the kidney. 03/14: Patient is doing very well his creatinine is down from yesterday his urine was very positive patient was started on Rocephin until seen the final report of his culture the meanwhile urology and nephrology are seen patient no other patient is given require any intervention or not specially with his bilateral severe hydronephrosis. 03/15: Patients kidney function continues to improve, creatinine 2.93, BUN 76, potassium 4.0, sodium 133. He continues on Rocephin. Continues to be followed by nephrology and urology. Kaiser catheter in place, continues to have good urine output. Vital signs are stable temperature is 98.6, heart rate 74, respiratory rate of 18, blood pressure 101/50, and 7% on room air. Objective - Vital Signs Vital signs: Vital Signs Temp 98.6 F 03/15/20 11:56 Pulse 74 03/15/20 11:56 Resp 18 03/15/20 11:56 BP 101/58 03/15/20 11:56 Pulse Ox 97 03/15/20 11:56 Intake & Output 03/14/20 03/15/20 03/15/20 18:59 06:59 18:59 Intake Total 600 Output Total 1020 Balance -420 Intake: Intake, IV Titration 600 Amount Dextrose 5% in Water 1, 600 000 ml @ 75 mls/hr IV . [id number] SAHIL with Sodium Bicarb (1 Meq/ml) 150 ml Rx#:[id number] Output: Urine 1020 Other: Voiding Method Indwelling Catheter Indwelling Catheter Indwelling Catheter - Exam General Appearance: Alert, cooperative, no distress Neck HEENT: Supple, no lymphadenopathy, no thyroid enlargement, no carotid br uits. Lungs: Decreased breath sound bilaterally with fine rhonchi positive mild expiratory wheezes. Chest Wall: Decrease expansion with deep inspiration no tenderness and no deformity was found on exam, no costochondral pain or discomfort Heart: Irregular rate and rhythm, S1, S2 positive S3 positive PVCs Back: Symmetric, no curvature, ROM normal, no CVA tenderness. Abdomen: Soft, non-tender, bowel sounds active all four quadrants, no masses, no organomegaly Extremities: Extremities normal, atraumatic, no cyanosis or edema. Slight discoloration from the knee down Pulses: 2+ and symmetric Skin: Skin color, texture, tugor normal, no rashes or lesions Neurologic: Alert oriented with slight confusion cranial nerves II through XII intact, generalized motor weakness, positive abnormal balance or gait - Labs CBC & Chem 7: 03/15/20 08:59 03/15/20 08:59 Labs: Abnormal Lab Results - Last 24 Hours (Table) 03/14/20 03/14/20 03/15/20 Range/Units 11:13 11:13 08:59 RBC 2.45 L 2.43 L (4.30-5.90) m/uL Hgb 8.4 L 8.1 L (13.0-17.5) gm/dL Hct 24.9 L 24.9 L (39.0-53.0) % MCV 101.7 H 102.4 H (80.0-100.0) fL Lymphocytes # 0.6 L (1.0-4.8) k/uL Sodium 134 L (137-145) mmol/L BUN 83 H (9-20) mg/dL Creatinine 3.22 H (0.66-1.25) mg/dL Glucose 134 H (74-99) mg/dL Calcium 7.9 L (8.4-10.2) mg/dL AST 16 L (17-59) U/L Total Protein 5.6 L (6.3-8.2) g/dL Albumin 2.8 L (3.5-5.0) g/dL 03/15/20 Range/Units 08:59 RBC (4.30-5.90) m/uL Hgb (13.0-17.5) gm/dL Hct (39.0-53.0) % MCV (80.0-100.0) fL Lymphocytes # (1.0-4.8) k/uL Sodium 133 L (137-145) mmol/L BUN 76 H (9-20) mg/dL Creatinine 2.93 H (0.66-1.25) mg/dL Glucose 179 H (74-99) mg/dL Calcium 7.9 L (8.4-10.2) mg/dL AST (17-59) U/L Total Protein 5.4 L (6.3-8.2) g/dL Albumin 2.6 L (3.5-5.0) g/dL Microbiology - Last 24 Hours (Table) 03/13/20 19:38 Urine Culture - Final Urine,Clean Catch Assessment and Plan Plan: 1 acute kidney failure: Most likely secondary to ATN, patient also had bilateral chronic hydronephrosis not a clear etiology urology on consult. Patient had severe infection which will be treated as well 2 bilateral hydronephrosis not a clear etiology whether related to prostate cancer or obstruction not clear patient might require Kaiser catheter as well. Treat infection continue hydration repeat BUN/creatinine 3 A. fib: Patient remain on the flecainide and metoprolol is not on any anticoagulation currently most likely because of higher on for fall and injury. 4 hypertension was on beta mejia with metoprolol. 5 severe hyperkalemia: Continue to treat his potassium and continue to work on improving his kidney function for better control of longer on. 6 chronic anemia: Most likely iron deficiency and could be combination of GI bleed and chronic kidney disease patient might benefit from iron infusion along with Procrit. 7 hyperglycemia: Continue Accu-Chek with sliding scales coverage. 8. Prostate cancer post radiation. 9 recurrent UTI with no UA done this time will try to do Kaiser catheter and UA culture possible. UA is positive pending culture. 10 DVT prophylaxis: Venodyne boots and early mobilization. 11 GI prophylaxis: Patient be on Pepcid 20 mg daily. The above impression and plan of care have been discussed and directed by signing physician. Arabella Tony nurse practitioner acting as scribe for signing physician.
[2020-03-15] MEDS: SODIUM CHLORIDE 0.9% 1,000 ML IV SCH (14:35)
[2020-03-15] MEDS: HYDROcodone/APAP 5-325MG 1 EACH TAB PO PRN (20:00)
[2020-03-15 20:20] LABS: % Iron Saturation 2.26 (15.00-50.00); Ferritin 390.4 ng/mL (22.0-322.0)
[2020-03-16] MEDS: SODIUM CHLORIDE 0.9% 1,000 ML IV SCH ×2 (06:14→15:56)
[2020-03-16] MEDS: METOPROLOL TARTRATE 25 MG TAB PO SCH ×2 (08:08→21:19)
[2020-03-16] MEDS: CYANOCOBALAMIN 500 MCG TAB PO SCH (08:09)
[2020-03-16] MEDS: FLECAINIDE 50 MG TAB PO SCH ×2 (08:09→21:19)
[2020-03-16] MEDS: TAMSULOSIN 0.4 MG CAP.ER.24H PO SCH (08:09)
[2020-03-16] MEDS: MAGNESIUM OXIDE 400 MG TAB PO SCH (08:09)
[2020-03-16 11:54] LABS: Calcium 7.7 mg/dL (8.4-10.2); Magnesium 1.5 mg/dL (1.6-2.3); Potassium 4.2 mmol/L (3.5-5.1)
--- NOTE | 2020-03-16 12:14 | P.PN ---
Subjective She was seen in follow-up for acute kidney injury on chronic kidney disease. Patient has chronic kidney disease stage IIIB with baseline creatinine 1.8-2. Creatinine was 5.2 on admission and is down to 2.59 today. Has a Kaiser catheter. Maintained on IV fluids. Oral intake fair. No chest pain or shortness of breath. Blood pressure stable. Vital signs are stable. General: The patient appeared well nourished and normally developed. HEENT: Head exam is unremarkable. Neck is without jugular venous distension. LUNGS: Breath sounds decreased. HEART: Rate and Rhythm are regular. ABDOMEN: Soft, nontender. EXTREMITITES: No edema. Objective - Vital Signs Vital signs: Vital Signs Temp 99.5 F 03/16/20 08:08 Pulse 89 03/16/20 08:08 Resp 18 03/16/20 08:08 BP 124/54 03/16/20 08:08 Pulse Ox 98 03/16/20 08:08 Intake & Output 03/15/20 03/16/20 03/16/20 18:59 06:59 18:59 Intake Total 200 Output Total 650 800 Balance -650 -800 200 Weight 66.9 kg Intake: Oral 200 Output: Urine 650 800 Other: Voiding Method Indwelling Catheter Indwelling Catheter Indwelling Catheter # Voids 1 - Labs CBC & Chem 7: 03/15/20 08:59 03/16/20 11:13 Labs: Abnormal Lab Results - Last 24 Hours (Table) 03/15/20 03/16/20 Range/Units 08:59 11:13 Sodium 133 L (137-145) mmol/L BUN 64 H (9-20) mg/dL Creatinine 2.59 H (0.66-1.25) mg/dL Glucose 148 H (74-99) mg/dL Calcium 7.7 L (8.4-10.2) mg/dL Magnesium 1.5 L (1.6-2.3) mg/dL Iron 4 L (65-175) ug/dL TIBC 177 L (228-460) ug/dL % Saturation 2.26 L (15.00-50.00) Ferritin 390.4 H (22.0-322.0) ng/mL Microbiology - Last 24 Hours (Table) 03/13/20 19:38 Urine Culture - Final Urine,Clean Catch Assessment and Plan Plan: Assessment: 1. Acute kidney injury secondary to obstructive uropathy. Creatinine was 5.29 at admission and is 2.59 today. Nonoliguric. 2. Bilateral hydronephrosis. Has a Kaiser catheter. Urology following. 3. Metabolic acidosis secondary to acute kidney injury. Resolved. s/p bicarb drip. 4. Chronic kidney disease stage III with baseline creatinine in the range of 1.8-2. 5. Hyperkalemia secondary to acute kidney injury and obstructive uropathy. Resolved. 6. Anemia of chronic kidney disease. Iron deficiency noted. 7. Hypomagnesemia from poor intake. Plan: Maintain normal saline. IV iron today. Replace magnesium. 2 g IV today. Maintain Kaiser catheter. Continue to monitor renal function and urine output.
--- NOTE | 2020-03-16 12:16 | P.PN ---
Subjective 89-year-old male one of Dr. Ramos's patient with past medical history of A. fib, hypertension, stage III chronic kidney disease, history of kidney stone, recurrent irretractable infection, prostate cancer, history of urinary retention require full catheter in the past who seen urology regular basis, patient also used to live in [place] and used to see urologist on regular basis has been in town for the last year patient continued to have generalized symptoms on and off he was hospitalized last at [facility] in May 19 acute kidney i njury and acute kidney failure also had possible history of ventricular arrhythmia was on flecainide that time by the [place] doctor for not no reason. Patient seen nephrology in [facility] and Dr. Ramos on regular basis he presented to the emergency department last night with malaise fatigue and not feeling well overall without any complaint of abdominal pain or change in urination is still having significant decrease in her urine output family were not aware that patient is sick with his presentation with the fatigue tiredness found to have potassium of 6.7 with creatinine of 5.29 with bun of 106 patient hemoglobin was 10.7. Patient also has a BNP of 4350 with significantly elevated blood sugar at the time. Nephrology were called and patient was treated for hyperkalemia in the emergency room brought his number down to 6.1 and furthermore after midnight to 4.9 his bun still 104 with creatinine of 4.22 patient is in acute kidney failure at this time with acute kidney injury most likely ATN on a chronic kidney disease most likely few urinary retention. Bilateral severe hydronephrosis was found on ultrasound of the kidney with no evidence of solid renal mass that similar to what patient had in his CAT SCAN back in 05/02/2019. We'll consult nephrology and urology for possible needing stent and continue hydration continue supportive care for the kidney. 03/14: Patient is doing very well his creatinine is down from yesterday his urine was very positive patient was started on Rocephin until seen the final report of his culture the meanwhile urology and nephrology are seen patient no other patient is given require any intervention or not specially with his bilateral severe hydronephrosis. 03/15: Patients kidney function continues to improve, creatinine 2.93, BUN 76, potassium 4.0, sodium 133. He continues on Rocephin. Continues to be followed by nephrology and urology. Garza catheter in place, continues to have good urine output. Vital signs are stable temperature is 98.6, heart rate 74, respiratory rate of 18, blood pressure 101/50, and 7% on room air. 03/16: Patient evaluated this morning lying in bed comfortably. He is noted to be febrile today with a temperature 100.4, heart rate 71, respiratory rate of 18, blood pressure 106/54, 98% on room air. He continues to be treated for UTI with ceftriaxone. Final urine culture shows skin and/or genital vladimir only, will continue on ceftriaxone despite culture results. Kidney function slightly better from yesterday, BUN 64, creatinine 2.59, sodium 133, potassium 4.2. Ferritin elevated at 390.4, secondary to anemia, hemoglobin 8.1. Garza catheter still in place continues have good urine output with clear yellow urine. Sodium bicarb drip was discontinued yesterday and he was started on normal saline. Objective - Vital Signs Vital signs: Vital Signs Temp 99.5 F 03/16/20 08:08 Pulse 89 03/16/20 08:08 Resp 18 03/16/20 08:08 BP 124/54 03/16/20 08:08 Pulse Ox 98 03/16/20 08:08 Intake & Output 03/15/20 03/16/20 03/16/20 18:59 06:59 18:59 Intake Total 200 Output Total 650 800 Balance -650 -800 200 Weight 66.9 kg Intake: Oral 200 Output: Urine 650 800 Other: Voiding Method Indwelling Catheter Indwelling Catheter Indwelling Catheter # Voids 1 - Exam General Appearance: Alert, cooperative, no acute distress Neck HEENT: Supple, no lymphadenopathy, no thyroid enlargement, no carotid bruits. Lungs: Decreased breath sound bilaterally with fine rhonchi positive mild expiratory wheezes. Chest Wall: Decrease expansion with deep inspiration no tenderness and no deformity was found on exam, no costochondral pain or discomfort Heart: Irregular rate and rhythm, S1, S2 positive S3 positive PVCs Back: Symmetric, no curvature, ROM normal, no CVA tenderness. Abdomen: Soft, non-tender, bowel sounds active all four quadrants, no masses, no organomegaly Extremities: Extremities normal, atraumatic, no cyanosis or edema. Slight discoloration from the knee down Pulses: 2+ and symmetric Skin: Skin color, texture, tugor normal, no rashes or lesions Neurologic: Alert oriented with slight confusion cranial nerves II through XII intact, generalized weakness - Labs CBC & Chem 7: 03/15/20 08:59 03/16/20 11:13 Labs: Abnormal Lab Results - Last 24 Hours (Table) 03/15/20 03/16/20 Range/Units 08:59 11:13 Sodium 133 L (137-145) mmol/L BUN 64 H (9-20) mg/dL Creatinine 2.59 H (0.66-1.25) mg/dL Glucose 148 H (74-99) mg/dL Calcium 7.7 L (8.4-10.2) mg/dL Magnesium 1.5 L (1.6-2.3) mg/dL Iron 4 L (65-175) ug/dL TIBC 177 L (228-460) ug/dL % Saturation 2.26 L (15.00-50.00) Ferritin 390.4 H (22.0-322.0) ng/mL Microbiology - Last 24 Hours (Table) 03/13/20 19:38 Urine Culture - Final Urine,Clean Catch Assessment and Plan Plan: 1 acute kidney failure: Most likely secondary to ATN, patient also had bilateral chronic hydronephrosis not a clear etiology, urology on consult 2 bilateral hydronephrosis not a clear etiology whether related to prostate cancer or obstruction. Treat infection continue hydration repeat BUN/creatinine, garza cath 3 A. fib: Patient remain on the flecainide and metoprolol is not on any anticoagulation currently most likely because of risk for falls 4 hypertension was on beta mejia with metoprolol. 5 severe hyperkalemia: Has normalized 6 chronic anemia: Most likely iron deficiency and could be combination of GI bleed and chronic kidney disease patient might benefit from iron infusion along with Procrit. 7 hyperglycemia: Continue Accu-Chek with sliding scales coverage. 8. Prostate cancer post radiation. 9 recurrent UTI. Continue ceftriaxone, urine cultures are negative, continue antibiotics despite culture since patient is symptomatic 10 DVT prophylaxis: Venodyne boots and early mobilization. 11 GI prophylaxis: Patient be on Pepcid 20 mg daily. The above impression and plan of care have been discussed and directed by signing physician. Arabella Tony nurse practitioner acting as scribe for signing physician.
[2020-03-16] MEDS: SODIUM FERRIC GLUCONAT-SUCROSE 125 MG in SODIUM CHLORIDE 0.9% 100 ML IVPB SCH (12:59)
[2020-03-16] MEDS: MAGNESIUM SULFATE-D5W PMX 1 GM in DEXTROSE/WATER 1 100ML.BAG IVPB SCH ×2 (14:30→15:30)
[2020-03-16] MEDS ORDERED: ACETAMINOPHEN TAB 325 MG TAB PO PRN (23:21)
[2020-03-17] MEDS: SODIUM CHLORIDE 0.9% 1,000 ML IV SCH ×3 (05:28→20:04)
[2020-03-17] MEDS: FLECAINIDE 50 MG TAB PO SCH ×2 (08:42→20:16)
[2020-03-17] MEDS: CYANOCOBALAMIN 500 MCG TAB PO SCH (08:42)
[2020-03-17] MEDS: TAMSULOSIN 0.4 MG CAP.ER.24H PO SCH (08:42)
[2020-03-17] MEDS: MAGNESIUM OXIDE 400 MG TAB PO SCH (08:42)
[2020-03-17] MEDS: METOPROLOL TARTRATE 25 MG TAB PO SCH ×2 (08:42→20:16)
[2020-03-17 08:56] LABS: Calcium 8.1 mg/dL (8.4-10.2); Potassium 4.3 mmol/L (3.5-5.1)
[2020-03-17] MEDS: SODIUM FERRIC GLUCONAT-SUCROSE 125 MG in SODIUM CHLORIDE 0.9% 100 ML IVPB SCH (09:06)
--- NOTE | 2020-03-17 12:42 | P.PN ---
Subjective She was seen in follow-up for acute kidney injury on chronic kidney disease. Patient has chronic kidney disease stage IIIB with baseline creatinine 1.8-2. Creatinine was 5.2 on admission and is down to 2.52 today. Has a Kaiser catheter. Urine output 2.3 L in the last 24 hours. Maintained on IV fluids. Oral intake fair. No chest pain or shortness of breath. Blood pressure stable. Vital signs are stable. General: The patient appeared well nourished and normally developed. HEENT: Head exam is unremarkable. Neck is without jugular venous distension. LUNGS: Breath sounds decreased. HEART: Rate and Rhythm are regular. ABDOMEN: Soft, nontender. EXTREMITITES: No edema. Objective - Vital Signs Vital signs: Vital Signs Temp 99.3 F 03/17/20 08:39 Pulse 81 03/17/20 08:39 Resp 16 03/17/20 08:39 BP 121/67 03/17/20 08:39 Pulse Ox 98 03/17/20 08:39 Intake & Output 03/16/20 03/17/20 03/17/20 18:59 06:59 18:59 Intake Total 400 110 Output Total 1600 700 300 Balance -1200 -700 -190 Weight 66.9 kg 67 kg Intake: IV 10 Invasive Line 4 10 Oral 400 100 Output: Urine 1600 700 300 Uretheral (Kaiser) 1000 700 300 Other: Voiding Method Indwelling Catheter Indwelling Catheter Indwelling Catheter # Voids 3 # Bowel Movements 1 - Labs CBC & Chem 7: 03/15/20 08:59 03/17/20 08:05 Labs: Abnormal Lab Results - Last 24 Hours (Table) 03/17/20 Range/Units 08:05 Sodium 134 L (137-145) mmol/L BUN 62 H (9-20) mg/dL Creatinine 2.52 H (0.66-1.25) mg/dL Glucose 100 H (74-99) mg/dL Calcium 8.1 L (8.4-10.2) mg/dL Assessment and Plan Plan: Assessment: 1. Acute kidney injury secondary to obstructive uropathy. Creatinine was 5.29 at admission and is stable at 2.52 today. Nonoliguric. 2. Bilateral hydronephrosis. Has a Kaiser catheter. Urology following. 3. Metabolic acidosis secondary to acute kidney injury. Resolved. s/p bicarb drip. 4. Chronic kidney disease stage III with baseline creatinine in the range of 1.8-2. 5. Hyperkalemia secondary to acute kidney injury and obstructive uropathy. Resolved. 6. Anemia of chronic kidney disease. Iron deficiency noted. 7. Hypomagnesemia from poor intake. Improved posterior placement. Plan: Decrease normal saline to 50 mL an hour. Continue IV iron. Maintain Kaiser catheter. Continue to monitor renal function and urine output.
--- NOTE | 2020-03-17 13:29 | P.PN ---
Subjective 89-year-old male one of Dr. Ramos's patient with past medical history of A. fib, hypertension, stage III chronic kidney disease, history of kidney stone, recurrent irretractable infection, prostate cancer, history of urinary retention require full catheter in the past who seen urology regular basis, patient also used to live in [place] and used to see urologist on regular basis has been in town for the last year patient continued to have generalized symptoms on and off he was hospitalized last at [facility] in May 19 acute kidney i njury and acute kidney failure also had possible history of ventricular arrhythmia was on flecainide that time by the [place] doctor for not no reason. Patient seen nephrology in [facility] and Dr. Ramos on regular basis he presented to the emergency department last night with malaise fatigue and not feeling well overall without any complaint of abdominal pain or change in urination is still having significant decrease in her urine output family were not aware that patient is sick with his presentation with the fatigue tiredness found to have potassium of 6.7 with creatinine of 5.29 with bun of 106 patient hemoglobin was 10.7. Patient also has a BNP of 4350 with significantly elevated blood sugar at the time. Nephrology were called and patient was treated for hyperkalemia in the emergency room brought his number down to 6.1 and furthermore after midnight to 4.9 his bun still 104 with creatinine of 4.22 patient is in acute kidney failure at this time with acute kidney injury most likely ATN on a chronic kidney disease most likely few urinary retention. Bilateral severe hydronephrosis was found on ultrasound of the kidney with no evidence of solid renal mass that similar to what patient had in his CAT SCAN back in 05/02/2019. We'll consult nephrology and urology for possible needing stent and continue hydration continue supportive care for the kidney. 03/14: Patient is doing very well his creatinine is down from yesterday his urine was very positive patient was started on Rocephin until seen the final report of his culture the meanwhile urology and nephrology are seen patient no other patient is given require any intervention or not specially with his bilateral severe hydronephrosis. 03/15: Patients kidney function continues to improve, creatinine 2.93, BUN 76, potassium 4.0, sodium 133. He continues on Rocephin. Continues to be followed by nephrology and urology. Garza catheter in place, continues to have good urine output. Vital signs are stable temperature is 98.6, heart rate 74, respiratory rate of 18, blood pressure 101/50, and 7% on room air. 03/16: Patient evaluated this morning lying in bed comfortably. He is noted to be febrile today with a temperature 100.4, heart rate 71, respiratory rate of 18, blood pressure 106/54, 98% on room air. He continues to be treated for UTI with ceftriaxone. Final urine culture shows skin and/or genital vladimir only, will continue on ceftriaxone despite culture results. Kidney function slightly better from yesterday, BUN 64, creatinine 2.59, sodium 133, potassium 4.2. Ferritin elevated at 390.4, secondary to anemia, hemoglobin 8.1. Garza catheter still in place continues have good urine output with clear yellow urine. Sodium bicarb drip was discontinued yesterday and he was started on normal saline. 03/17: Patient evaluated, lying in bed, resting comfortably, in no acute distress. Kidney function is down to 2.5 today, Garza catheter in place draining clear yellow urine with good urine output. Patient was noted to be febrile last night was a temp of 102.5, did receive a dose of Tylenol, currently 99.3, blood pressure is stable 121/67, respiratory rate of 16, pulse is 81, he is 98% on room air. He continues on Rocephin for his urinary tract infection. Continues with iron infusions for his anemia. We'll repeat CBC and CMP tomorrow. Will have PT OT evaluate for possibility of subacute rehab upon discharge Objective - Vital Signs Vital signs: Vital Signs Temp 99.3 F 03/17/20 08:39 Pulse 81 03/17/20 08:39 Resp 16 03/17/20 08:39 BP 121/67 03/17/20 08:39 Pulse Ox 98 03/17/20 08:39 Intake & Output 03/16/20 03/17/20 03/17/20 18:59 06:59 18:59 Intake Total 400 110 Output Total 1600 700 300 Balance -1200 -700 -190 Weight 66.9 kg 67 kg Intake: IV 10 Invasive Line 4 10 Oral 400 100 Output: Urine 1600 700 300 Uretheral (Garza) 1000 700 300 Other: Voiding Method Indwelling Catheter Indwelling Catheter Indwelling Catheter # Voids 3 # Bowel Movements 1 - Exam General Appearance: Alert, cooperative, no acute distress Neck HEENT: Supple, no lymphadenopathy, no thyroid enlargement, no carotid bruits. Lungs: Decreased breath sound bilaterally Chest Wall: Decrease expansion with deep inspiration no tenderness and no deformity was found on exam, no costochondral pain or discomfort Heart: Irregular rate and rhythm, S1, S2 positive S3 positive PVCs Back: Symmetric, no curvature, ROM normal, no CVA tenderness. Abdomen: Soft, non-tender, bowel sounds active all four quadrants, no masses, no organomegaly Extremities: Extremities normal, atraumatic, no cyanosis or edema. Slight discoloration from the knee down Pulses: 2+ and symmetric Skin: Skin color, texture, tugor normal, no rashes or lesions Neurologic: Alert oriented with slight confusion cranial nerves II through XII intact, generalized weakness. - Labs CBC & Chem 7: 03/15/20 08:59 03/17/20 08:05 Labs: Abnormal Lab Results - Last 24 Hours (Table) 03/17/20 Range/Units 08:05 Sodium 134 L (137-145) mmol/L BUN 62 H (9-20) mg/dL Creatinine 2.52 H (0.66-1.25) mg/dL Glucose 100 H (74-99) mg/dL Calcium 8.1 L (8.4-10.2) mg/dL Assessment and Plan Plan: 1 acute kidney failure: Most likely secondary to ATN, patient also had bilateral chronic hydronephrosis not a clear etiology, urology on consult 2 bilateral hydronephrosis not a clear etiology whether related to prostate cancer or obstruction. Treat infection continue hydration repeat BUN/creatinine , garza cath 3 A. fib: Patient remain on the flecainide and metoprolol is not on any anticoagulation currently most likely because of risk for falls 4 hypertension was on beta mejia with metoprolol. 5 severe hyperkalemia: Has normalized 6 chronic anemia: Most likely iron deficiency and could be combination of GI bleed and chronic kidney disease patient might benefit from iron infusion along with Procrit. 7 hyperglycemia: Continue Accu-Chek with sliding scales coverage. 8. Prostate cancer post radiation. 9 recurrent UTI. Continue ceftriaxone, urine cultures are negative, continue an tibiotics despite culture since patient is symptomatic 10 DVT prophylaxis: Venodyne boots and early mobilization. 11 GI prophylaxis: Patient be on Pepcid 20 mg daily. The above impression and plan of care have been discussed and directed by signing physician. Arabella Tony nurse practitioner acting as scribe for signing physician.
[2020-03-17 13:50] LABS: RBC,Urine >182 /hpf (0-5); WBC,Urine >182 /hpf (0-5)
[2020-03-17 13:51] LABS: Appearance,Urine Turbid (Clear); Color,Urine Other
[2020-03-17 15:21] LABS: Basophils % (A) 0 %; Eosinophils # (A) 0.1 k/uL (0-0.7); Eosinophils % (A) 1 %; HCT 24.3 % (39.0-53.0); HGB 7.4 gm/dL (13.0-17.5); Hypochromasia Moderate; Lymphocytes # (A) 0.5 k/uL (1.0-4.8); Lymphocytes % (A) 5 %; MCH 32.7 pg (25.0-35.0); MCHC 30.4 g/dL (31.0-37.0); Macrocytosis Moderate; Mean Platelet Volume 8.2; Monocytes # (A) 0.6 k/uL (0-1.0); Monocytes % (A) 6 %; Neutrophils # (A) 7.7 k/uL (1.3-7.7); Neutrophils % (A) 86 %; Platelet Count 259 k/uL (150-450); RBC 2.25 m/uL (4.30-5.90); RDW 12.4 % (11.5-15.5)
[2020-03-17 15:40] LABS: MCV 107.8 fL (80.0-100.0)
[2020-03-17] MEDS: LEVOFLOXACIN 250MG-D5W PMX 250 MG in DEXTROSE/WATER 1 50ML.BAG IVPB SCH (16:56)
--- NOTE | 2020-03-18 07:15 | P.CONS ---
History of Present Illness - Chief Complaint Medical debility - History of Present Illness I had the opportunity to see patient for inpatient rehab consultation with regard to medical debility. He was admitted to [facility] March 13 with acute kidney disease, obstructive uropathy for a few seen by nephrology as well as Dr. Howard. Chest x-ray with chronic change. Renal ultrasound with bilateral hydron ephrosis. PT reports minimal assistance for bed mobility and maximal total assistance to person to stand. Standing balance poor and endurance poor. OT reports minimal assistance for upper dressing and maximal assistance for lower dressing, bathing, toileting. Previous functional history unobtainable from patient. Review of Systems Review of systems: Lean from chart and exam of patient. ENT: Denies sneezes or discharge. Eyes: Denies discharge or photophobia. Cardiac: Denies chest pain or palpitation. Pulmonary: Denies cough or shortness of breath. Gastrointestinal: Denies nausea, emesis, constipation, diarrhea. Genitourinary: Acute kidney injury. Musculoskeletal: Denies muscle or bone aches. Neurologic: Severe confusion and marked generalized weakness. Endocrine: Denies shakes or sweats. Oncology: Denies cancers. Dermatologic: Denies rash, itching, pruritus. ALLERGY/immunology: Denies sneezes, rashes. Past Medical History Past Medical History: Atrial Fibrillation, Cancer, Hypertension, Prostate Disorder, Renal Disease Additional Past Medical History / Comment(s): Prosate cancer with radiation, kidney stones passed on his own and surgically removed, UTIs, chronic low back pain, occasional sinus problems. RESIGHINI. History of Any Multi-Drug Resistant Organisms: MRSA Year Discovered:: 2018 MDRO Source:: urine? family/pt unsure Past Surgical History: Appendectomy, Hernia Repair, Orthopedic Surgery Additional Past Surgical History / Comment(s): Lithotripsy, hiatal hernia repair, L knee open surgery to "clean it out", colonoscopy, circumcism later in life d/t UTIs. Past Anesthesia/Blood Transfusion Reactions: No Reported Reaction Past Psychological History: No Psychological Hx Reported Additional Psychological History / Comment(s): Pt resides with his son. He uses a cane to ambulate. He no longer drives, his son takes him to appts. Son states that he, himself was recently hospitalized for a lengthy time and when he got back home, pt's meds were "screwed up". Smoking Status: Never smoker Past Alcohol Use History: None Reported Additional Past Alcohol Use History / Comment(s): Patient was a smoker one pack per day for 40 years and quit 35 years ago. He denies any alcohol use. Patient lives with his son. He uses a cane for ambulation. He denies any recent falls. Past Drug Use History: None Reported - Past Family History Father Family Medical History: Hypertension Additional Family Medical History / Comment(s): Father at age 82 from old age. Mother Additional Family Medical History / Comment(s): Mother at age 82 and was in a coma at the time. Patient is unsure of cause of her or causative coma. Brother(s) Additional Family Medical History / Comment(s): Patient has 1 brother that is . He is not know any of his medical history. Patient does not have any sisters. Patient has 4 daughters and 4 sons with no major medical problems. Medications and Allergies Home Medications Medication Instructions Recorded Confirmed Type Cyanocobalamin [Vitamin B-12] 500 mcg PO BID 05/01/19 03/12/20 History Flecainide Acetate 50 mg PO BID 05/01/19 03/12/20 History Metoprolol Tartrate [Lopressor] 25 mg PO BID 05/01/19 03/12/20 History Tamsulosin [Flomax] 0.4 mg PO DAILY 05/01/19 03/12/20 History Magnesium Oxide 420mg 420 mg PO DAILY 03/12/20 03/12/20 History Allergies Allergy/AdvReac Type Severity Reaction Status Date / Time No Known Allergies Allergy Verified 03/12/20 18:37 Physical Exam Vitals: Vital Signs Temp Pulse Resp BP Pulse Ox 03/18/20 04:00 98.2 F 77 18 110/57 95 03/18/20 00:00 97.6 F 75 18 158/66 97 03/17/20 20:00 97.7 F 72 18 126/59 95 03/17/20 15:06 99.6 F 78 16 108/55 98 03/17/20 12:00 98.6 F 77 16 128/62 96 03/17/20 08:39 99.3 F 81 16 121/67 98 Intake and Output 12/23/20 12/24/20 12/24/20 22:59 06:59 14:59 Intake Total 800 725 Output Total 1000 Balance 800 -275 Intake: IV 800 cefTRIAXone 1 gm In 800 Sodium Chloride 0.9% 50 ml @ 100 mls/hr IVPB Q24HR COUNT INCLUDES THE [facility] Rx#:[id number] Oral 725 Output: Urine 1000 Other: Voiding Method Indwelling Catheter Indwelling Catheter Weight 66.7 kg Skin: Atrophic, intact. General: Thin and wasted build and comfortable appearance. Head: Normocephalic, atraumatic. Eyes: Symmetric. Pupils equal round. Ears: Symmetric. Hearing within normal limits. Mouth: Clear. Neck: Supple. Carotid without bruit. Cardiac: Regular rate and rhythm. Lungs: Clear anteriorly and posteriorly. Abdomen: Soft active nontender. Extremities: Normal tone. Neurological: Mental status: Alert, cooperative, pleasant. Cranial nerves: Symmetric facial tone and trapezius. Motor: Response to noxious stimulus locally all limbs but poorly. Sensation: Intact throughout, see above. DTRs: Symmetric and equal throughout. Mobility: Requires physical assist for bed mobility. Results CBC & Chem 7: 03/17/20 08:05 03/17/20 08:05 Labs: Abnormal Lab Results - Last 24 Hours (Table) 03/17/20 03/17/20 03/17/20 Range/Units 08:05 08:05 13:20 RBC 2.25 L (4.30-5.90) m/uL Hgb 7.4 L (13.0-17.5) gm/dL Hct 24.3 L (39.0-53.0) % MCV 107.8 H D (80.0-100.0) fL MCHC 30.4 L (31.0-37.0) g/dL Lymphocytes # 0.5 L (1.0-4.8) k/uL Sodium 134 L (137-145) mmol/L BUN 62 H (9-20) mg/dL Creatinine 2.52 H (0.66-1.25) mg/dL Glucose 100 H (74-99) mg/dL Calcium 8.1 L (8.4-10.2) mg/dL Urine RBC >182 H (0-5) /hpf Urine WBC >182 H (0-5) /hpf Urine WBC Clumps Many H (None) /hpf Microbiology - Last 24 Hours (Table) 12/23/20 13:20 Urine Culture - Preliminary Urine,Catheterized Assessment and Plan (1) SAI (acute kidney injury) Current Visit: No Status: Acute Code(s): N17.9 - ACUTE KIDNEY FAILURE, UNSPECIFIED SNOMED Code(s): 37734313 (2) Hydronephrosis Current Visit: No Status: Acute Code(s): N13.30 - UNSPECIFIED HYDRONEPHROSIS SNOMED Code(s): 04082120 (3) UTI (urinary tract infection) Current Visit: No Status: Acute Code(s): N39.0 - URINARY TRACT INFECTION, SITE NOT SPECIFIED SNOMED Code(s): 58291701 Plan: Impression: 1. Medical debility. 2. Acute on chronic kidney disease. 3. Obstructive uropathy. 4. UTI. 5. Hypertension. 6. Atrial fibrillation. Comments and plan: At this time PT and OT are ongoing. Rehab prognosis guarded due to confusion and poor endurance. At this time would require 24/7 care multiple persons.
[2020-03-18 08:30] LABS: Calcium 7.8 mg/dL (8.4-10.2); Magnesium 1.8 mg/dL (1.6-2.3); Potassium 4.7 mmol/L (3.5-5.1)
[2020-03-18 08:35] LABS: Basophils % (A) 0 %; Eosinophils # (A) 0.1 k/uL (0-0.7); Eosinophils % (A) 2 %; HCT 21.2 % (39.0-53.0); Hypochromasia Slight; Lymphocytes # (A) 0.5 k/uL (1.0-4.8); Lymphocytes % (A) 8 %; MCH 33.5 pg (25.0-35.0); MCHC 31.6 g/dL (31.0-37.0); MCV 106.2 fL (80.0-100.0); Macrocytosis Slight; Mean Platelet Volume 7.8; Monocytes # (A) 0.4 k/uL (0-1.0); Monocytes % (A) 5 %; Neutrophils # (A) 5.9 k/uL (1.3-7.7); Neutrophils % (A) 83 %; Platelet Count 234 k/uL (150-450); RDW 12.6 % (11.5-15.5); WBC 7.1 k/uL (3.8-10.6)
[2020-03-18] MEDS ORDERED: IOPAMIDOL CONTRAST (ORAL USE) VIAL PO PRN (08:48)
[2020-03-18 08:53] LABS: HGB 6.7 gm/dL (13.0-17.5)
[2020-03-18] MEDS: SODIUM FERRIC GLUCONAT-SUCROSE 125 MG in SODIUM CHLORIDE 0.9% 100 ML IVPB SCH (09:12)
[2020-03-18] MEDS: TAMSULOSIN 0.4 MG CAP.ER.24H PO SCH (10:11)
[2020-03-18] MEDS: CYANOCOBALAMIN 500 MCG TAB PO SCH (10:11)
[2020-03-18] MEDS: MAGNESIUM OXIDE 400 MG TAB PO SCH (10:11)
[2020-03-18] MEDS: FLECAINIDE 50 MG TAB PO SCH ×2 (10:12→19:50)
[2020-03-18] MEDS: METOPROLOL TARTRATE 25 MG TAB PO SCH ×2 (10:12→19:50)
[2020-03-18] MEDS: LEVOFLOXACIN 250MG-D5W PMX 250 MG in DEXTROSE/WATER 1 50ML.BAG IVPB SCH (10:12)
--- NOTE | 2020-03-18 11:54 | P.PN ---
Subjective 89-year-old male one of Dr. Ramos's patient with past medical history of A. fib, hypertension, stage III chronic kidney disease, history of kidney stone, recurrent irretractable infection, prostate cancer, history of urinary retention require full catheter in the past who seen urology regular basis, patient also used to live in [place] and used to see urologist on regular basis has been in town for the last year patient continued to have generalized symptoms on and off he was hospitalized last at [facility] in May 19 acute kidney i njury and acute kidney failure also had possible history of ventricular arrhythmia was on flecainide that time by the [place] doctor for not no reason. Patient seen nephrology in [facility] and Dr. Ramos on regular basis he presented to the emergency department last night with malaise fatigue and not feeling well overall without any complaint of abdominal pain or change in urination is still having significant decrease in her urine output family were not aware that patient is sick with his presentation with the fatigue tiredness found to have potassium of 6.7 with creatinine of 5.29 with bun of 106 patient hemoglobin was 10.7. Patient also has a BNP of 4350 with significantly elevated blood sugar at the time. Nephrology were called and patient was treated for hyperkalemia in the emergency room brought his number down to 6.1 and furthermore after midnight to 4.9 his bun still 104 with creatinine of 4.22 patient is in acute kidney failure at this time with acute kidney injury most likely ATN on a chronic kidney disease most likely few urinary retention. Bilateral severe hydronephrosis was found on ultrasound of the kidney with no evidence of solid renal mass that similar to what patient had in his CAT SCAN back in 05/02/2019. We'll consult nephrology and urology for possible needing stent and continue hydration continue supportive care for the kidney. 03/14: Patient is doing very well his creatinine is down from yesterday his urine was very positive patient was started on Rocephin until seen the final report of his culture the meanwhile urology and nephrology are seen patient no other patient is given require any intervention or not specially with his bilateral severe hydronephrosis. 03/15: Patients kidney function continues to improve, creatinine 2.93, BUN 76, potassium 4.0, sodium 133. He continues on Rocephin. Continues to be followed by nephrology and urology. Garza catheter in place, continues to have good urine output. Vital signs are stable temperature is 98.6, heart rate 74, respiratory rate of 18, blood pressure 101/50, and 7% on room air. 03/16: Patient evaluated this morning lying in bed comfortably. He is noted to be febrile today with a temperature 100.4, heart rate 71, respiratory rate of 18, blood pressure 106/54, 98% on room air. He continues to be treated for UTI with ceftriaxone. Final urine culture shows skin and/or genital vladimir only, will continue on ceftriaxone despite culture results. Kidney function slightly better from yesterday, BUN 64, creatinine 2.59, sodium 133, potassium 4.2. Ferritin elevated at 390.4, secondary to anemia, hemoglobin 8.1. Garza catheter still in place continues have good urine output with clear yellow urine. Sodium bicarb drip was discontinued yesterday and he was started on normal saline. 03/17: Patient evaluated, lying in bed, resting comfortably, in no acute distress. Kidney function is down to 2.5 today, Garza catheter in place draining clear yellow urine with good urine output. Patient was noted to be febrile last night was a temp of 102.5, did receive a dose of Tylenol, currently 99.3, blood pressure is stable 121/67, respiratory rate of 16, pulse is 81, he is 98% on room air. He continues on Rocephin for his urinary tract infection. Continues with iron infusions for his anemia. We'll repeat CBC and CMP tomorrow. Will have PT OT evaluate for possibility of subacute rehab upon discharge 03/18: Patient evaluated in bed, resting comfortably, patient noted to be pale, continues to be very weak and debilitated. Patient continues to be confused. Patient's hemoglobin noted to drop to 6.7 today, 1 unit of blood was ordered along with CT of the abdomen and pelvis. According to the nurse patient refused the oral contrast and repeat blood draw for type and screen. Patient reported "just leave me alone, I just want to sleep." Patient's sons Jamison and Anjali were contacted and on a 3 way call, who gave verbal consent for the CT and blood transfusion. Discussed patient code status and expectations at discharge. Patient will likely need subacute rehab and 16/[address] Bustillos did evaluate patient and he does not qualify for inpatient rehab. Family would like to disc ussed CODE STATUS before it is changed, currently patient is full code. Objective - Vital Signs Vital signs: Vital Signs Temp 98.2 F 03/18/20 04:00 Pulse 77 03/18/20 04:00 Resp 18 03/18/20 04:00 BP 110/57 03/18/20 04:00 Pulse Ox 95 03/18/20 04:00 Intake & Output 03/17/20 03/18/20 03/18/20 18:59 06:59 18:59 Intake Total 2507 725 Output Total 300 1000 Balance 2207 -275 Weight 66.7 kg Intake: IV 1370 Invasive Line 4 20 Sodium Chloride 0.9% 1, 400 000 ml @ 50 mls/hr IV . Q20H SAHIL Rx#:[id number] Sodium Ferric Gluconat- 100 Sucrose 125 mg In Sodium Chloride 0.9% 100 ml @ 100 mls/hr IVPB DAILY SAHIL Rx#:[id number] cefTRIAXone 1 gm In 850 Sodium Chloride 0.9% 50 ml @ 100 mls/hr IVPB Q24HR SAHIL Rx#:[id number] Oral 1137 725 Output: Urine 300 1000 Uretheral (Garza) 300 Other: Voiding Method Indwelling Catheter Indwelling Catheter - Exam General Appearance: Alert, cooperative, no acute distress Neck HEENT: Supple, no lymphadenopathy, no thyroid enlargement, no carotid bruits. Lungs: Decreased breath sound bilaterally Chest Wall: Decrease expansion with deep inspiration no tenderness and no deformity was found on exam, no costochondral pain or discomfort Heart: Irregular rate and rhythm, S1, S2 positive S3 positive PVCs Back: Symmetric, no curvature, ROM normal, no CVA tenderness. Abdomen: Soft, non-tender, bowel sounds active all four quadrants, no masses, no organomegaly Extremities: Extremities normal, atraumatic, no cyanosis or edema. Slight discoloration from the knee down Pulses: 2+ and symmetric Skin: Skin color, texture, tugor normal, no rashes or lesions Neurologic: Alert oriented with confusion cranial nerves II through XII intact, generalized weakness and debility. - Labs CBC & Chem 7: 03/18/20 07:15 03/18/20 07:15 Labs: Abnormal Lab Results - Last 24 Hours (Table) 03/17/20 03/17/20 03/18/20 Range/Units 08:05 13:20 07:15 RBC 2.25 L (4.30-5.90) m/uL Hgb 7.4 L (13.0-17.5) gm/dL Hct 24.3 L (39.0-53.0) % MCV 107.8 H D (80.0-100.0) fL MCHC 30.4 L (31.0-37.0) g/dL Lymphocytes # 0.5 L (1.0-4.8) k/uL Sodium 134 L (137-145) mmol/L BUN 56 H (9-20) mg/dL Creatinine 2.07 H (0.66-1.25) mg/dL Calcium 7.8 L (8.4-10.2) mg/dL Urine RBC >182 H (0-5) /hpf Urine WBC >182 H (0-5) /hpf Urine WBC Clumps Many H (None) /hpf Crossmatch 03/18/20 03/18/20 Range/Units 07:15 10:15 RBC 2.00 L (4.30-5.90) m/uL Hgb 6.7 L* (13.0-17.5) gm/dL Hct 21.2 L (39.0-53.0) % MCV 106.2 H (80.0-100.0) fL MCHC (31.0-37.0) g/dL Lymphocytes # 0.5 L (1.0-4.8) k/uL Sodium (137-145) mmol/L BUN (9-20) mg/dL Creatinine (0.66-1.25) mg/dL Calcium (8.4-10.2) mg/dL Urine RBC (0-5) /hpf Urine WBC (0-5) /hpf Urine WBC Clumps (None) /hpf Crossmatch See Detail Microbiology - Last 24 Hours (Table) 03/17/20 08:05 Blood Culture - Preliminary Blood No Growth after 24 hours 03/17/20 13:20 Urine Culture - Preliminary Urine,Catheterized Assessment and Plan Plan: 1 acute kidney failure: Most likely secondary to ATN, patient also had bilateral chronic hydronephrosis not a clear etiology, urology on consult 2 bilateral hydronephrosis not a clear etiology whether related to prostate cancer or obstruction. Treat infection continue hydration repeat BUN/creatinine, garza cath 3 A. fib: Patient remain on the flecainide and metoprolol is not on any anticoagulation currently most likely because of risk for falls 4 hypertension was on beta mejia with metoprolol. 5 severe hyperkalemia: Has normalized 6 chronic anemia: Most likely iron deficiency and could be combination of GI bleed and chronic kidney disease, patient will receive 1 unit of blood today 7 hyperglycemia: Continue Accu-Chek with sliding scales coverage. 8. Prostate cancer post radiation. 9 recurrent UTI. Continue ceftriaxone, urine cultures are negative, continue antibiotics despite culture since patient is symptomatic 10 DVT prophylaxis: Venodyne boots and early mobilization. 11 GI prophylaxis: Patient be on Pepcid 20 mg daily. The above impression and plan of care have been discussed and directed by signing physician. Arabella Tony nurse practitioner acting as scribe for signing physician.
--- NOTE | 2020-03-18 12:27 | P.PN ---
Subjective Progress Note Date: 03/18/20 Principal diagnosis: This is an 89-year-old male seen in consultation because of acute kidney injury from outlet obstruction. With a Kaiser catheter is improving. This morning is feeling tired and weak. No fever chills cough shortness of breath No nausea vomiting His urine is clear in the Kaiser catheter bag Vital signs are stable He is known with atrial fibrillation, history of prostate cancer in the past. Additionally his hemoglobin is down from 8.6-6.7% with a saturation of 2% Objective - Vital Signs Vital signs: Vital Signs Temp 98.7 F 03/18/20 08:00 Pulse 76 03/18/20 08:00 Resp 18 03/18/20 08:00 BP 149/58 03/18/20 08:00 Pulse Ox 97 03/18/20 08:00 Intake & Output 03/17/20 03/18/20 03/18/20 18:59 06:59 18:59 Intake Total 2507 725 Output Total 300 1000 300 Balance 2207 -275 -300 Weight 66.7 kg Intake: IV 1370 Invasive Line 4 20 Sodium Chloride 0.9% 1, 400 000 ml @ 50 mls/hr IV . Q20H SAHIL Rx#:[id number] Sodium Ferric Gluconat- 100 Sucrose 125 mg In Sodium Chloride 0.9% 100 ml @ 100 mls/hr IVPB DAILY SAHIL Rx#:[id number] cefTRIAXone 1 gm In 850 Sodium Chloride 0.9% 50 ml @ 100 mls/hr IVPB Q24HR SAHIL Rx#:[id number] Oral 1137 725 Output: Urine 300 1000 300 Uretheral (Kaiser) 300 Other: Voiding Method Indwelling Catheter Indwelling Catheter Indwelling Catheter On examination his weak and tired and awake and alert. HEENT exam no JVP neck supple no facial asymmetry Lungs are clear to auscultation good air entry bilaterally Heart sounds unremarkable for any murmur rub gallop Abdomen soft nontender Extremity exam reveals no edema Neurologically awake alert oriented He has generalized weakness though - Labs CBC & Chem 7: 03/18/20 07:15 03/18/20 07:15 Labs: Abnormal Lab Results - Last 24 Hours (Table) 03/17/20 03/17/20 03/18/20 Range/Units 08:05 13:20 07:15 RBC 2.25 L (4.30-5.90) m/uL Hgb 7.4 L (13.0-17.5) gm/dL Hct 24.3 L (39.0-53.0) % MCV 107.8 H D (80.0-100.0) fL MCHC 30.4 L (31.0-37.0) g/dL Lymphocytes # 0.5 L (1.0-4.8) k/uL Sodium 134 L (137-145) mmol/L BUN 56 H (9-20) mg/dL Creatinine 2.07 H (0.66-1.25) mg/dL Calcium 7.8 L (8.4-10.2) mg/dL Urine RBC >182 H (0-5) /hpf Urine WBC >182 H (0-5) /hpf Urine WBC Clumps Many H (None) /hpf Crossmatch 03/18/20 03/18/20 Range/Units 07:15 10:15 RBC 2.00 L (4.30-5.90) m/uL Hgb 6.7 L* (13.0-17.5) gm/dL Hct 21.2 L (39.0-53.0) % MCV 106.2 H (80.0-100.0) fL MCHC (31.0-37.0) g/dL Lymphocytes # 0.5 L (1.0-4.8) k/uL Sodium (137-145) mmol/L BUN (9-20) mg/dL Creatinine (0.66-1.25) mg/dL Calcium (8.4-10.2) mg/dL Urine RBC (0-5) /hpf Urine WBC (0-5) /hpf Urine WBC Clumps (None) /hpf Crossmatch See Detail Microbiology - Last 24 Hours (Table) 03/17/20 08:05 Blood Culture - Preliminary Blood No Growth after 24 hours 03/17/20 13:20 Urine Culture - Preliminary Urine,Catheterized Assessment and Plan Assessment: Impression 1. Bilateral hydronephrosis secondary to outlet obstruction, creatinine improving with Kaiser catheter 2. History of prostate cancer, currently PSA is normal 3. Anemia hemoglobin went down from 8.1-6.7 with this iron saturation of 2%. Status post Ferrlecit 4. History of atrial fibrillation 5. Mild hyponatremia improved from 133-134 this morning. Etiology is acute kidney injury 6. Metabolic acidosis secondary to acute kidney injury, bicarb was 7 improved to 25 and is is 22 Recommendation 1. Maintain current medications. 2. Maintain IV normal saline at 50 an hour
[2020-03-18] MEDS: SODIUM CHLORIDE 0.9% 1,000 ML IV SCH (16:09)
--- NOTE | 2020-03-18 16:50 | CT ---
EXAM: CT Abdomen and Pelvis Without Intravenous Contrast CLINICAL HISTORY: ITS.REASON CT Reason: hydronephrosis TECHNIQUE: Axial computed tomography images of the abdomen and pelvis without intravenous contrast. CTDI is 9.7 mGy and DLP is 448.8 mGy-cm. This CT exam was performed using one or more of the following dose reduction techniques: automated exposure control, adjustment of the mA and/or kV according to patient size, and/or use of iterative reconstruction technique. COMPARISON: CT abdomen/pelvis on 05/02/2019 FINDINGS: Lung bases: Left greater than right bibasilar atelectasis. Pleural space: Trace pleural effusions. Heart: Mild cardiomegaly. ABDOMEN: Liver: Unremarkable. Gallbladder and bile ducts: Cholelithiasis. No ductal dilation. Pancreas: Atrophy of the pancreas. No ductal dilation. Spleen: Unremarkable. No splenomegaly. Adrenals: Unremarkable. No mass. Kidneys and ureters: Moderate left and mild right hydroureteronephrosis. Thinning of the renal parenchyma bilaterally. Bilateral renal cysts. Stomach and bowel: Large amount of stool in the colon may represent constipation. No bowel obstruction. Postsurgical changes of the bowel. Diverticulosis without evidence of diverticulitis. PELVIS: Appendix: No findings to suggest acute appendicitis. Bladder: Punctate 1-2 mm stone in the posterior left bladder may represent a recently passed left ureteral stone. Prominence of the bladder wall may be secondary to underdistention, but cystitis is not excluded. Please correlate with urinalysis. Kaiser catheter in a decompressed bladder. Reproductive: Calcifications in the prostate. ABDOMEN and PELVIS: Intraperitoneal space: Unremarkable. No free air. No significant fluid collection. Bones/joints: Scoliosis. Degenerative changes of the spine. Grade 1 anterolisthesis of L4 on L5. No acute fracture. No dislocation. Soft tissues: Bilateral gynecomastia. Vasculature: Atherosclerotic changes of the vasculature. No aortic aneurysm. Lymph nodes: Unremarkable. No enlarged lymph nodes. IMPRESSION: 1. Trace pleural effusions. 2. Cholelithiasis. 3. Moderate left and mild right hydroureteronephrosis. Thinning of the renal parenchyma bilaterally. 4. Punctate 1-2 mm stone in the posterior left bladder may represent a recently passed left ureteral stone. 5. Large amount of stool in the colon may represent constipation. No bowel obstruction. 6. Prominence of the bladder wall may be secondary to underdistention, but cystitis is not excluded. Please correlate with urinalysis.
[2020-03-18 19:43] LABS: Basophils % (A) 0 %; Eosinophils # (A) 0.2 k/uL (0-0.7); Eosinophils % (A) 2 %; HCT 26.8 % (39.0-53.0); Hypochromasia Moderate; Lymphocytes # (A) 0.4 k/uL (1.0-4.8); Lymphocytes % (A) 6 %; MCH 32.6 pg (25.0-35.0); MCV 105.2 fL (80.0-100.0); Macrocytosis Moderate; Mean Platelet Volume 7.3; Monocytes # (A) 0.4 k/uL (0-1.0); Monocytes % (A) 5 %; Neutrophils # (A) 6.6 k/uL (1.3-7.7); Neutrophils % (A) 86 %; Platelet Count 240 k/uL (150-450); RBC 2.54 m/uL (4.30-5.90); RDW 14.4 % (11.5-15.5); WBC 7.7 k/uL (3.8-10.6)
[2020-03-18 19:54] LABS: HGB 8.3 gm/dL (13.0-17.5)
[2020-03-19 08:34] LABS: HCT 29.5 % (39.0-53.0); HGB 9.6 gm/dL (13.0-17.5); Hypochromasia Moderate; MCH 33.8 pg (25.0-35.0); MCHC 32.5 g/dL (31.0-37.0); Macrocytosis Slight; Mean Platelet Volume 7.2; Platelet Count 264 k/uL (150-450); Poikilocytosis Slight; RBC 2.84 m/uL (4.30-5.90); RDW 14.2 % (11.5-15.5); WBC 7.5 k/uL (3.8-10.6)
[2020-03-19 08:44] LABS: Calcium 8.3 mg/dL (8.4-10.2); Potassium 5.5 mmol/L (3.5-5.1)
[2020-03-19] MEDS: SODIUM FERRIC GLUCONAT-SUCROSE 125 MG in SODIUM CHLORIDE 0.9% 100 ML IVPB SCH (09:35)
[2020-03-19] MEDS: MAGNESIUM OXIDE 400 MG TAB PO SCH (09:36)
[2020-03-19] MEDS: CYANOCOBALAMIN 500 MCG TAB PO SCH (09:36)
[2020-03-19] MEDS: TAMSULOSIN 0.4 MG CAP.ER.24H PO SCH (09:36)
[2020-03-19] MEDS: METOPROLOL TARTRATE 25 MG TAB PO SCH ×2 (09:36→20:01)
[2020-03-19] MEDS: FLECAINIDE 50 MG TAB PO SCH ×2 (09:36→20:01)
[2020-03-19] MEDS: LEVOFLOXACIN 250 MG TAB PO SCH (09:36)
--- NOTE | 2020-03-19 11:00 | P.PN ---
Subjective Progress Note Date: 03/19/20 Principal diagnosis: This is an 89-year-old male seen in consultation because of acute kidney injury from outlet obstruction. With a Kaiser catheter is improving. This morning is feeling tired and weak. He seems to be somewhat confused though. No fever chills cough shortness of breath No nausea vomiting His urine is clear in the Kaiser catheter bag Vital signs are stable He is known with atrial fibrillation, history of prostate cancer in the past. Additionally his hemoglobin is down from 8.6-6.7% with a saturation of 2% Objective - Vital Signs Vital signs: Vital Signs Temp 97.6 F 03/19/20 04:00 Pulse 81 03/19/20 04:00 Resp 18 03/19/20 04:00 BP 116/67 03/19/20 04:00 Pulse Ox 96 03/19/20 04:00 Intake & Output 03/18/20 03/19/20 03/19/20 18:59 06:59 18:59 Intake Total 767 475 120 Output Total 300 1190 Balance 467 -715 120 Weight 66.7 kg 61.5 kg Intake: IV 20 Invasive Line 5 20 Oral 437 475 120 Blood Product 310 Rc As-1 Unit 310 [id number] Output: Urine 300 1190 Other: Voiding Method Indwelling Catheter Indwelling Catheter On examination awake alert but seems to be unable to tell me what hospital he is in and which year this is HEENT exam no JVP neck is supple no facial asymmetry Lungs are clear to auscultation fair air entry bilaterally Heart sounds are unremarkable for any murmur rub gallop abdomen soft nontender no organomegaly ascites no masses felt Extremity exam reveals no edema Neurologically awake alert but disoriented. - Labs CBC & Chem 7: 03/19/20 08:05 03/19/20 08:05 Labs: Abnormal Lab Results - Last 24 Hours (Table) 03/18/20 03/18/20 03/19/20 Range/Units 10:15 19:01 08:05 RBC 2.54 L 2.84 L (4.30-5.90) m/uL Hgb 8.3 L D 9.6 L (13.0-17.5) gm/dL Hct 26.8 L 29.5 L (39.0-53.0) % MCV 105.2 H 104.0 H (80.0-100.0) fL Lymphocytes # 0.4 L (1.0-4.8) k/uL Sodium (137-145) mmol/L Potassium (3.5-5.1) mmol/L Chloride (98-107) mmol/L Carbon Dioxide (22-30) mmol/L BUN (9-20) mg/dL Creatinine (0.66-1.25) mg/dL Glucose (74-99) mg/dL Calcium (8.4-10.2) mg/dL Crossmatch See Detail 03/19/20 Range/Units 08:05 RBC (4.30-5.90) m/uL Hgb (13.0-17.5) gm/dL Hct (39.0-53.0) % MCV (80.0-100.0) fL Lymphocytes # (1.0-4.8) k/uL Sodium 135 L (137-145) mmol/L Potassium 5.5 H (3.5-5.1) mmol/L Chloride 108 H (98-107) mmol/L Carbon Dioxide 19 L (22-30) mmol/L BUN 56 H (9-20) mg/dL Creatinine 1.92 H (0.66-1.25) mg/dL Glucose 109 H (74-99) mg/dL Calcium 8.3 L (8.4-10.2) mg/dL Crossmatch Microbiology - Last 24 Hours (Table) 03/17/20 08:05 Blood Culture - Preliminary Blood No Growth after 48 hours 03/17/20 13:20 Urine Culture - Preliminary Urine,Catheterized Yeast species Assessment and Plan Assessment: Impression 1. Bilateral hydronephrosis secondary to outlet obstruction, creatinine improving with Kaiser catheter. Creatinine was 5.29 and is currently down to 1.9 to 2. Hyperkalemia secondary to acute kidney injury, potassium is 5.5, bicarb is 19. Secondary acute kidney injury and RTA 3. History of prostate cancer, currently PSA is normal 4. Anemia hemoglobin went down from 8.1-6.7, after transfusions up to 9.6 this morning 5. Iron deficiency with iron saturation of 2%. Status post Ferrlecit, additionally blood transfusion 6. History of atrial fibrillation, stable 7. Mild hyponatremia improved from 133-135 this morning. Etiology is acute kidney injury 8. Metabolic acidosis secondary to acute kidney injury, bicarb was 7 improved to 25 and an down to 19, possibly secondary to IV normal saline. 9. UTI with Jocelyn Recommendation 1. Start sodium bicarb 650 twice a day 2. Maintain current medications. 3. Maintain IV normal saline at 50 an hour. 4. Consider adding antifungal treatment because of the UTI and some changes in mental status.
[2020-03-19] MEDS: PANTOPRAZOLE 40 MG TABLET PO SCH (12:41)
[2020-03-19] MEDS: SODIUM BICARBONATE TAB 650 MG TAB PO SCH ×3 (12:41→20:01)
[2020-03-19] MEDS: HYDROcodone/APAP 5-325MG 1 EACH TAB PO PRN (20:01)
[2020-03-20] MEDS: PANTOPRAZOLE 40 MG TABLET PO SCH (06:16)
[2020-03-20] MEDS: SODIUM CHLORIDE 0.9% 1,000 ML IV SCH (06:18)
[2020-03-20 08:01] LABS: HCT 25.7 % (39.0-53.0); Hypochromasia Slight; MCH 32.1 pg (25.0-35.0); MCHC 31.3 g/dL (31.0-37.0); MCV 102.7 fL (80.0-100.0); Macrocytosis Slight; Mean Platelet Volume 7.2; Platelet Count 275 k/uL (150-450); RDW 14.1 % (11.5-15.5); WBC 7.3 k/uL (3.8-10.6)
[2020-03-20 08:12] LABS: Albumin 2.2 g/dL (3.5-5.0); Calcium 8.2 mg/dL (8.4-10.2); Potassium 5.3 mmol/L (3.5-5.1); Total Bilirubin 0.5 mg/dL (0.2-1.3); Total Protein 4.8 g/dL (6.3-8.2)
[2020-03-20] MEDS: LEVOFLOXACIN 250 MG TAB PO SCH (08:47)
[2020-03-20] MEDS: METOPROLOL TARTRATE 25 MG TAB PO SCH ×2 (08:47→21:09)
[2020-03-20] MEDS: FLECAINIDE 50 MG TAB PO SCH ×2 (08:47→21:09)
[2020-03-20] MEDS: CYANOCOBALAMIN 500 MCG TAB PO SCH (08:47)
[2020-03-20] MEDS: SODIUM BICARBONATE TAB 650 MG TAB PO SCH ×4 (08:47→21:09)
[2020-03-20] MEDS: MAGNESIUM OXIDE 400 MG TAB PO SCH (08:48)
[2020-03-20] MEDS: TAMSULOSIN 0.4 MG CAP.ER.24H PO SCH (08:48)
[2020-03-20] MEDS: HYDROcodone/APAP 5-325MG 1 EACH TAB PO PRN (08:50)
--- NOTE | 2020-03-20 10:29 | P.PN ---
Subjective She was seen in follow-up for acute kidney injury on chronic kidney disease. Patient has chronic kidney disease stage IIIB with baseline creatinine 1.8-2. Creatinine was 5.2 on admission - 2.1 today. Has a Kaiser catheter. Urine output 1.9 L in the last 24 hours. Maintained on IV fluids. Oral intake fair. No chest pain or shortness of breath. Blood pressure stable. he did require a unit of blood on March 18. Vital signs are stable. General: The patient appeared well nourished and normally developed. HEENT: Head exam is unremarkable. Neck is without jugular venous distension. LUNGS: Breath sounds decreased. HEART: Rate and Rhythm are regular. ABDOMEN: Soft, nontender. EXTREMITITES: No edema. Objective - Vital Signs Vital signs: Vital Signs Temp 97.6 F 03/20/20 03:23 Pulse 64 03/20/20 03:23 Resp 16 03/20/20 03:23 BP 111/57 03/20/20 03:23 Pulse Ox 94 L 03/20/20 03:23 Intake & Output 03/19/20 03/20/20 03/20/20 18:59 06:59 18:59 Intake Total 120 Output Total 1615 325 0 Balance -1495 -325 0 Weight 58.5 kg Intake: Oral 120 Output: Urine 1615 325 0 Stool 0 Other: Voiding Method Indwelling Catheter Indwelling Catheter # Voids 0 # Bowel Movements 0 - Labs CBC & Chem 7: 03/20/20 07:30 03/20/20 07:30 Labs: Abnormal Lab Results - Last 24 Hours (Table) 03/20/20 03/20/20 Range/Units 07:30 07:30 RBC 2.50 L (4.30-5.90) m/uL Hgb 8.0 L D (13.0-17.5) gm/dL Hct 25.7 L (39.0-53.0) % MCV 102.7 H (80.0-100.0) fL Sodium 136 L (137-145) mmol/L Potassium 5.3 H (3.5-5.1) mmol/L Chloride 110 H (98-107) mmol/L BUN 59 H (9-20) mg/dL Creatinine 2.10 H (0.66-1.25) mg/dL Calcium 8.2 L (8.4-10.2) mg/dL Total Protein 4.8 L (6.3-8.2) g/dL Albumin 2.2 L (3.5-5.0) g/dL Microbiology - Last 24 Hours (Table) 03/17/20 13:20 Urine Culture - Final Urine,Catheterized Jocelyn albicans 03/17/20 08:05 Blood Culture - Preliminary Blood No Growth after 48 hours Assessment and Plan Plan: Assessment: 1. Acute kidney injury secondary to obstructive uropathy. Creatinine was 5.29 at admission and is stable at 2.1 today. Nonoliguric. 2. Bilateral hydronephrosis. Has a Kaiser catheter. Urology following. 3. Metabolic acidosis secondary to acute kidney injury. On po bicarb. 4. Chronic kidney disease stage III with baseline creatinine in the range of 1.8-2. 5. Hyperkalemia secondary to acute kidney injury, acidosis, and obstructive uropathy. Better. 6. Anemia of chronic kidney disease. Iron deficiency noted - s/p IV iron. 7. Hypomagnesemia from poor intake. Improved post placement. 8. UTI. Ucx jocelyn. Consider anti-fungal, defer to primary team. 9. A. fib maintained on flecainide and metoprolol. Plan: Mantain NS at 50 mL an hour. Add aranesp. Maintain Kaiser catheter. Continue to monitor renal function and urine output. Monitor hemoglobin and transfuse as needed.
[2020-03-20] MEDS ORDERED: DARBEPOETIN ALFA 40 MCG/0.4 ML SYRINGE SQ SCH (11:00)
[2020-03-20] MEDS: FLUCONAZOLE IN NACL,ISO-OSM 100 MG in SALINE 1 50ML.BAG IVPB SCH (11:58)
--- NOTE | 2020-03-20 12:43 | P.PN ---
Subjective Progress Note Date: 03/19/20 Principal diagnosis: Acute kidney failure, acute kidney injury, severe generalized symptoms, history of hydronephrosis, recurrent UTI, acute anemia requiring blood transfusion with no sign of bleeding, debility 89-year-old male one of Dr. Ramos's patient with past medical history of A. fib, hypertension, stage III chronic kidney disease, history of kidney stone, recurrent irretractable infection, prostate cancer, history of urinary retention require full catheter in the past who seen urology regular basis, patient also used to live in [place] and used to see urologist on regular basis [facility] patient continued to have generalized symptoms on and off he was hospitalized last at [facility] in May 19 acute kidney injury and acute kidney failure also had possible history of ventricular arrhythmia was on flecainide that time by the [place] doctor for not no reason. Patient [facility] nephrology in [facility] and Dr. Ramos on regular basis he presented to the emergency department last night with malaise fatigue and not feeling well overall without any complaint of abdominal pain or change in urination is still having significant decrease in her urine output family were not aware that patient is sick with his presentation with the fatigue tiredness found to have potassium of 6.7 with creatinine of 5.29 with bun of 106 patient hemoglobin was 10.7. Patient also has a BNP of 4350 with significantly elevated blood sugar at the time. Nephrology were called and patient was treated for hyperkalemia in the emergency room brought his number down to 6.1 and furthermore after midnight to 4.9 his bun still 104 with creatinine of 4.22 patient is in acute kidney failure at this time with acute kidney injury most likely ATN on a chronic kidney disease most likely few urinary retention. Bilateral severe hydronephrosis was found on ultrasound of the kidney with no evidence of solid renal mass that similar to what patient had in his CAT SCAN back in 05/02/2019. We'll consult nephrology and urology for possible needing stent and continue hydration continue supportive care for the kidney. 03/14: Patient is doing very well his creatinine is down from yesterday his urine was very positive patient was started on Rocephin until seen the final report of his culture the meanwhile urology and nephrology are seen patient no other patient is given require any intervention or not specially with his bilateral severe hydronephrosis. 03/15: Patients kidney function continues to improve, creatinine 2.93, BUN 76, potassium 4.0, sodium 133. He continues on Rocephin. Continues to be followed by nephrology and urology. Kaiser catheter in place, continues to have good urine output. Vital signs are stable temperature is 98.6, heart rate 74, respiratory rate of 18, blood pressure 101/50, and 7% on room air. 03/16: Patient evaluated this morning lying in bed comfortably. He is noted to be febrile today with a temperature 100.4, heart rate 71, respiratory rate of 18, blood pressure 106/54, 98% on room air. He continues to be treated for UTI with ceftriaxone. Final urine culture shows skin and/or genital vladimir only, will continue on ceftriaxone despite culture results. Kidney function slightly better from yesterday, BUN 64, creatinine 2.59, sodium 133, potassium 4.2. Ferritin elevated at 390.4, secondary to anemia, hemoglobin 8.1. Kaiser catheter still in place continues have good urine output with clear yellow urine. Sodium bicarb drip was discontinued yesterday and he was started on normal saline. 03/17: Patient evaluated, lying in bed, resting comfortably, in no acute distress. Kidney function is down to 2.5 today, Kaiser catheter in place draining clear yellow urine with good urine output. Patient was noted to be febrile last night was a temp of 102.5, did receive a dose of Tylenol, currently 99.3, blood pressure is stable 121/67, respiratory rate of 16, pulse is 81, he is 98% on room air. He continues on Rocephin for his urinary tract infection. Continues with iron infusions for his anemia. We'll repeat CBC and CMP tomorrow. Will have PT OT evaluate for possibility of subacute rehab upon discharge 03/18: Patient evaluated in bed, resting comfortably, patient noted to be pale, continues to be very weak and debilitated. Patient continues to be confused. Patient's hemoglobin noted to drop to 6.7 today, 1 unit of blood was ordered along with CT of the abdomen and pelvis. According to the nurse patient refused the oral contrast and repeat blood draw for type and screen. Patient reported "just leave me alone, I just want to sleep." Patient's sons Jamison and Anjali were contacted and on a 3 way call, who gave verbal consent for the CT and blood transfusion. Discussed patient code status and expectations at discharge. Patient will likely need subacute rehab and / care. Dr. Bustillos did evaluate patient and he does not qualify for inpatient rehab. Family would like to discussed CODE STATUS before it is changed, currently patient is full code. 03/19: Patient has done better so far since his transfusion is less confusing before his hemoglobin went up to 8 g no sign of GI bleed currently, still have Kaiser catheter and, patient is now moving out of bed at all require more help than expected for home patient was seen by Dr. Bustillos and decline inpatient rehab would be more like subacute rehab. Objective - Vital Signs Vital signs: Vital Signs Temp 98.8 F 03/19/20 15:20 Pulse 82 03/19/20 15:20 Resp 18 03/19/20 15:20 BP 97/48 03/19/20 15:20 Pulse Ox 97 03/19/20 15:20 Intake & Output 03/18/20 03/19/20 03/19/20 18:59 06:59 18:59 Intake Total 767 475 120 Output Total 300 1190 1040 Balance 878 -736 -614 Weight 66.7 kg 61.5 kg Intake: IV 20 Invasive Line 5 20 Oral 437 475 120 Blood Product 310 Rc As-1 Unit 310 [id number] Output: Urine 300 1190 1040 Other: Voiding Method Indwelling Catheter Indwelling Catheter Indwelling Catheter - Exam Review of Systems CONSTITUTIONAL: Look malnourished although than his age in no acute despite a distress EYES: No icterus sclerae, no conjunctivitis. EARS, NOSE, MOUTH, THROAT, and FACE: No sore throat, lymphadenopathy, carotid bruits or deformity. RESPIRATORY: Mild shortness of breath no cough or wheezes. CARDIOVASCULAR: Positive PND or troponin palpitation. GASTROINTESTINAL: No Abd pain, Nausea or vomiting, no Diarrhea or constipation, No GI Bleed, no distention or masses. GENITOURINARY: Decrease urine output with chronic kidney disease. INTEGUMENT/BREAST: Negative for any muscular injury with mild osteoarthritis.. HEMATOLOGIC/LYMPHATIC: Negative for bleed or purpura. MUSCULOSKELTAL: Negative for Myalgia or arthralgia. NEURLOGICAL: Mild altered mental status with no syncope no blurred vision slight dizziness and abnormal balance and gait. BEHAVIORAL/PSYCH: Negative. ENDOCRINE: Negative. Medications and Allergies Home Medications Medication Instructions Recorded Confirmed Type Cyanocobalamin [Vitamin B-12] 500 mcg PO BID 05/01/19 03/12/20 History Flecainide Acetate 50 mg PO BID 05/01/19 03/12/20 History Metoprolol Tartrate [Lopressor] 25 mg PO BID 05/01/19 03/12/20 History Tamsulosin [Flomax] 0.4 mg PO DAILY 05/01/19 03/12/20 History Magnesium Oxide 420mg 420 mg PO DAILY 03/12/20 03/12/20 History Allergies Allergy/AdvReac Type Severity Reaction Status Date / Time No Known Allergies Allergy Verified 03/12/20 18:37 Physical Exam Vitals: Vital Signs Temp Pulse Pulse Resp BP BP Pulse Ox 03/13/20 08:00 98.2 F 82 18 99/52 96 03/13/20 04:11 98.7 F 90 16 109/64 98 03/12/20 23:21 110 H 16 103/56 100 03/12/20 20:50 98.6 F 116 H 18 111/62 96 03/12/20 18:44 118 H 18 122/67 92 L 03/12/20 17:59 91 03/12/20 17:51 97 03/12/20 17:00 93 18 129/85 98 03/12/20 16:02 95 18 113/95 97 03/12/20 15:14 96.3 F L 99 20 110/64 93 L Intake and Output 03/12/20 03/13/20 03/13/20 22:59 06:59 14:59 Output Total 200 Balance -200 Output: Urine 200 Other: Voiding Method Urinal Urinal # Voids 0 1 Weight 56.699 kg 58 kg General Appearance: Alert, cooperative, no distress, appears older than his a Neck HEENT: Supple, no lymphadenopathy, no thyroid enlargement, no carotid bruits. Lungs: Decreased breath sound bilaterally with fine rhonchi positive mild expiratory wheezes. Chest Wall: Decrease expansion with deep inspiration no tenderness and no deformity was found on exam, no costochondral pain or discomfort. Heart: Irregular rate and rhythm, S1, S2 positive S3 positive PVCs Back: Symmetric, no curvature, ROM normal, no CVA tenderness. Abdomen: Soft, non-tender, bowel sounds active all four quadrants, no masses, no organomegaly. Extremities: Extremities normal, atraumatic, no cyanosis or edema. Slight discoloration from the knee down. Pulses: 2+ and symmetric. Skin: Skin color, texture, tugor normal, no rashes or lesions. Neurologic: Alert oriented with slight confusion cranial nerves II through XII intact, generalized motor weakness, positive abnormal balance or gait. - Labs CBC & Chem 7: 03/20/20 07:30 03/20/20 07:30 Labs: Abnormal Lab Results - Last 24 Hours (Table) 03/18/20 03/19/20 03/19/20 Range/Units 19:01 08:05 08:05 RBC 2.54 L 2.84 L (4.30-5.90) m/uL Hgb 8.3 L D 9.6 L (13.0-17.5) gm/dL Hct 26.8 L 29.5 L (39.0-53.0) % MCV 105.2 H 104.0 H (80.0-100.0) fL Lymphocytes # 0.4 L (1.0-4.8) k/uL Sodium 135 L (137-145) mmol/L Potassium 5.5 H (3.5-5.1) mmol/L Chloride 108 H (98-107) mmol/L Carbon Dioxide 19 L (22-30) mmol/L BUN 56 H (9-20) mg/dL Creatinine 1.92 H (0.66-1.25) mg/dL Glucose 109 H (74-99) mg/dL Calcium 8.3 L (8.4-10.2) mg/dL Microbiology - Last 24 Hours (Table) 03/17/20 08:05 Blood Culture - Preliminary Blood No Growth after 48 hours 03/17/20 13:20 Urine Culture - Preliminary Urine,Catheterized Yeast species Assessment and Plan Assessment: 1 acute kidney failure: Most likely secondary to ATN, patient also had bilateral chronic hydronephrosis not a clear etiology will have urology consultation will be done as well. Patient had severe infection which will be treated as well kidney function has improved significantly 2 bilateral hydronephrosis not a clear etiology whether related to prostate cancer or obstruction not clear patient might require Kaiser catheter as well. Treat infection continue hydration repeat BUN/creatinine, urology see no reason to do any intervention. 3 A. fib: Patient remain on the flecainide and metoprolol is not on any anticoagulation currently most likely because of higher on for fall and injury. 4 severe anemia: Post blood transfusion no sign of GI bleed continue to watch CBC daily. 5 severe hyperkalemia: Continue to treat his potassium and continue to work on improving his kidney function for better control of longer on. 6 hypertension: Still on metoprolol 25 mg twice a day. 7 hyperglycemia: Continue Accu-Chek with sliding scales coverage. 8. Prostate cancer post radiation. 9 recurrent UTI with no UA done this time will try to do Kaiser catheter and UA culture possible. UA is positive pending culture. CODE STATUS: Full code. Discharge planning: Advance PTOT and patient will require probably to go to rehab
--- NOTE | 2020-03-20 12:46 | P.PN ---
Subjective Progress Note Date: 03/20/20 Principal diagnosis: Acute kidney failure, acute kidney injury, severe generalized symptoms, history of hydronephrosis, recurrent UTI, acute anemia requiring blood transfusion with no sign of bleeding, debility 89-year-old male one of Dr. Ramos's patient with past medical history of A. fib, hypertension, stage III chronic kidney disease, history of kidney stone, recurrent irretractable infection, prostate cancer, history of urinary retention require full catheter in the past who seen urology regular basis, patient also used to live in [place] and used to see urologist on regular basis has been in [facility] for the last year patient continued to have generalized symptoms on and off he was hospitalized last at [facility] in May 19 acute kidney injury and acute kidney failure also had possible history of ventricular arrhythmia was on flecainide that time by the [place] doctor for not no reason. Patient seen nephrology in [facility] and Dr. Ramos on regular basis he presented to the emergency department last night with malaise fatigue and not feeling well overall without any complaint of abdominal pain or change in urination is still having significant decrease in her urine output family were not aware that patient is sick with his presentation with the fatigue tiredness found to have potassium of 6.7 with creatinine of 5.29 with bun of 106 patient hemoglobin was 10.7. Patient also has a BNP of 4350 with significantly elevated blood sugar at the time. Nephrology were called and patient was treated for hyperkalemia in the emergency room brought his number down to 6.1 and furthermore after midnight to 4.9 his bun still 104 with creatinine of 4.22 patient is in acute kidney failure at this time with acute kidney injury most likely ATN on a chronic kidney disease most likely few urinary retention. Bilateral severe hydronephrosis was found on ultrasound of the kidney with no evidence of solid renal mass that similar to what patient had in his CAT SCAN back in 05/02/2019. We'll consult nephrology and urology for possible needing stent and continue hydration continue supportive care for the kidney. 03/14: Patient is doing very well his creatinine is down from yesterday his urine was very positive patient was started on Rocephin until seen the final report of his culture the meanwhile urology and nephrology are seen patient no other patient is given require any intervention or not specially with his bilateral severe hydronephrosis. 03/15: Patients kidney function continues to improve, creatinine 2.93, BUN 76, potassium 4.0, sodium 133. He continues on Rocephin. Continues to be followed by nephrology and urology. Kaiser catheter in place, continues to have good urine output. Vital signs are stable temperature is 98.6, heart rate 74, respiratory rate of 18, blood pressure 101/50, and 7% on room air. 03/16: Patient evaluated this morning lying in bed comfortably. He is noted to be febrile today with a temperature 100.4, heart rate 71, respiratory rate of 18, blood pressure 106/54, 98% on room air. He continues to be treated for UTI with ceftriaxone. Final urine culture shows skin and/or genital vladimir only, will continue on ceftriaxone despite culture results. Kidney function slightly better from yesterday, BUN 64, creatinine 2.59, sodium 133, potassium 4.2. Ferritin elevated at 390.4, secondary to anemia, hemoglobin 8.1. Kaiser catheter still in place continues have good urine output with clear yellow urine. Sodium bicarb drip was discontinued yesterday and he was started on normal saline. 03/17: Patient evaluated, lying in bed, resting comfortably, in no acute distress. Kidney function is down to 2.5 today, Kaiser catheter in place draining clear yellow urine with good urine output. Patient was noted to be febrile last night was a temp of 102.5, did receive a dose of Tylenol, currently 99.3, blood pressure is stable 121/67, respiratory rate of 16, pulse is 81, he is 98% on room air. He continues on Rocephin for his urinary tract infection. Continues with iron infusions for his anemia. We'll repeat CBC and CMP tomorrow. Will have PT OT evaluate for possibility of subacute rehab upon discharge 03/18: Patient evaluated in bed, resting comfortably, patient noted to be pale, continues to be very weak and debilitated. Patient continues to be confused. Patient's hemoglobin noted to drop to 6.7 today, 1 unit of blood was ordered along with CT of the abdomen and pelvis. According to the nurse patient refused the oral contrast and repeat blood draw for type and screen. Patient reported "just leave me alone, I just want to sleep." Patient's sons Jamison and Anjali were contacted and on a 3 [address] call, who gave verbal consent for the CT and blood transfusion. Discussed patient code status and expectations at discharge. Patient will likely need subacute rehab and 16/[address] Bustillos did evaluate patient and he does not qualify for inpatient rehab. Family would like to discussed CODE STATUS before it is changed, currently patient is full code. 03/19: Patient has done better so far since his transfusion is less confusing before his hemoglobin went up to 8 g no sign of GI bleed currently, still have Kaiser catheter and, patient is now moving out of bed at all require more help than expected for home patient was seen by Dr. Bustillos and decline inpatient rehab would be more like subacute rehab. 03/20: Hemoglobin dropped down slightly no need for transfusion so far patient still not doing well with physical therapy we'll titrate physical therapy and review Dr. Fang note he is not accepted to inpatient rehab which will be more like subacute rehab for sometimes on Sunday in the meanwhile continue current IV antibiotic his urine culture came back positive for candidiasis which patient will be on Diflucan IV for the next 7 days. Objective - Vital Signs Vital signs: Vital Signs Temp 97.7 F 03/20/20 08:47 Pulse 85 03/20/20 08:47 Resp 18 03/20/20 08:47 BP 127/67 03/20/20 08:47 Pulse Ox 94 L 03/20/20 03:23 Intake & Output 03/19/20 03/20/20 03/20/20 18:59 06:59 18:59 Intake Total 120 340 Output Total 1615 325 0 Balance -1495 -325 340 Weight 58.5 kg Intake: Oral 120 340 Output: Urine 1615 325 0 Stool 0 Other: Voiding Method Indwelling Catheter Indwelling Catheter Indwelling Catheter # Voids 0 # Bowel Movements 0 - Exam Review of Systems CONSTITUTIONAL: Look malnourished although than his age in no acute despite a distress EYES: No icterus sclerae, no conjunctivitis. EARS, NOSE, MOUTH, THROAT, and FACE: No sore throat, lymphadenopathy, carotid bruits or deformity. RESPIRATORY: Mild shortness of breath no cough or wheezes. CARDIOVASCULAR: Positive PND or troponin palpitation. GASTROINTESTINAL: No Abd pain, Nausea or vomiting, no Diarrhea or constipation, No GI Bleed, no distention or masses. GENITOURINARY: Decrease urine output with chronic kidney disease. INTEGUMENT/BREAST: Negative for any muscular injury with mild osteoarthritis.. HEMATOLOGIC/LYMPHATIC: Negative for bleed or purpura. MUSCULOSKELTAL: Negative for Myalgia or arthralgia. NEURLOGICAL: Mild altered mental status with no syncope no blurred vision slight dizziness and abnormal balance and gait. BEHAVIORAL/PSYCH: Negative. ENDOCRINE: Negative. Medications and Allergies Home Medications Medication Instructions Recorded Confirmed Type Cyanocobalamin [Vitamin B-12] 500 mcg PO BID 05/01/19 03/12/20 History Flecainide Acetate 50 mg PO BID 05/01/19 03/12/20 History Metoprolol Tartrate [Lopressor] 25 mg PO BID 05/01/19 03/12/20 History Tamsulosin [Flomax] 0.4 mg PO DAILY 05/01/19 03/12/20 History Magnesium Oxide 420mg 420 mg PO DAILY 03/12/20 03/12/20 History Allergies Allergy/AdvReac Type Severity Reaction Status Date / Time No Known Allergies Allergy Verified 03/12/20 18:37 Physical Exam Vitals: Vital Signs Temp Pulse Pulse Resp BP BP Pulse Ox 03/13/20 08:00 98.2 F 82 18 99/52 96 03/13/20 04:11 98.7 F 90 16 109/64 98 03/12/20 23:21 110 H 16 103/56 100 03/12/20 20:50 98.6 F 116 H 18 111/62 96 03/12/20 18:44 118 H 18 122/67 92 L 03/12/20 17:59 91 03/12/20 17:51 97 03/12/20 17:00 93 18 129/85 98 03/12/20 16:02 95 18 113/95 97 03/12/20 15:14 96.3 F L 99 20 110/64 93 L Intake and Output 03/12/20 03/13/20 03/13/20 22:59 06:59 14:59 Output Total 200 Balance -200 Output: Urine 200 Other: Voiding Method Urinal Urinal # Voids 0 1 Weight 56.699 kg 58 kg General Appearance: Alert, cooperative, no distress, appears older than his a Neck HEENT: Supple, no lymphadenopathy, no thyroid enlargement, no carotid bruits. Lungs: Decreased breath sound bilaterally with fine rhonchi positive mild expiratory wheezes. Chest Wall: Decrease expansion with deep inspiration no tenderness and no deformity was found on exam, no costochondral pain or discomfort. Heart: Irregular rate and rhythm, S1, S2 positive S3 positive PVCs Back: Symmetric, no curvature, ROM normal, no CVA tenderness. Abdomen: Soft, non-tender, bowel sounds active all four quadrants, no masses, no organomegaly. Extremities: Extremities normal, atraumatic, no cyanosis or edema. Slight discoloration from the knee down. Pulses: 2+ and symmetric. Skin: Skin color, texture, tugor normal, no rashes or lesions. Neurologic: Alert oriented with slight confusion cranial nerves II through XII intact, generalized motor weakness, positive abnormal balance or gait. - Labs CBC & Chem 7: 03/20/20 07:30 03/20/20 07:30 Labs: Abnormal Lab Results - Last 24 Hours (Table) 03/20/20 03/20/20 Range/Units 07:30 07:30 RBC 2.50 L (4.30-5.90) m/uL Hgb 8.0 L D (13.0-17.5) gm/dL Hct 25.7 L (39.0-53.0) % MCV 102.7 H (80.0-100.0) fL Sodium 136 L (137-145) mmol/L Potassium 5.3 H (3.5-5.1) mmol/L Chloride 110 H (98-107) mmol/L BUN 59 H (9-20) mg/dL Creatinine 2.10 H (0.66-1.25) mg/dL Calcium 8.2 L (8.4-10.2) mg/dL Total Protein 4.8 L (6.3-8.2) g/dL Albumin 2.2 L (3.5-5.0) g/dL Microbiology - Last 24 Hours (Table) 03/17/20 08:05 Blood Culture - Preliminary Blood No Growth after 72 hours 03/17/20 13:20 Urine Culture - Final Urine,Catheterized Jocelyn albicans Assessment and Plan Assessment: 1 acute kidney failure: Most likely secondary to ATN, patient also had bilateral chronic hydronephrosis not a clear etiology will have urology consultation will be done as well. Patient had severe infection which will be treated as well kidney function has improved significantly 2 bilateral hydronephrosis not a clear etiology whether related to prostate cancer or obstruction not clear patient might require Kaiser catheter as well. Treat infection continue hydration repeat BUN/creatinine, urology see no reason to do any intervention. 3 A. fib: Patient remain on the flecainide and metoprolol is not on any anticoagulation currently most likely because of higher on for fall and injury. 4 severe anemia: Post blood transfusion no sign of GI bleed continue to watch CBC daily. 5 severe hyperkalemia: Continue to treat his potassium and continue to work on improving his kidney function for better control of longer on. 6 hypertension: Still on metoprolol 25 mg twice a day. 7 hyperglycemia: Continue Accu-Chek with sliding scales coverage. 8. Prostate cancer post radiation. 9 recurrent UTI with no UA done this time will try to do Kaiser catheter and UA culture possible. Urine culture showing candidiasis patient will be on Diflucan IV. CODE STATUS: Full code. Discharge planning: Advance PTOT and patient will require probably to go to rehab
[2020-03-21] MEDS: SODIUM CHLORIDE 0.9% 1,000 ML IV SCH ×2 (03:45→12:25)
[2020-03-21] MEDS: PANTOPRAZOLE 40 MG TABLET PO SCH (07:09)
[2020-03-21 08:32] LABS: Basophils % (A) 0 %; Eosinophils # (A) 0.2 k/uL (0-0.7); Eosinophils % (A) 2 %; HCT 24.8 % (39.0-53.0); HGB 8.2 gm/dL (13.0-17.5); Lymphocytes # (A) 0.6 k/uL (1.0-4.8); Lymphocytes % (A) 7 %; MCH 34.2 pg (25.0-35.0); MCHC 33.2 g/dL (31.0-37.0); MCV 102.8 fL (80.0-100.0); Macrocytosis Slight; Mean Platelet Volume 7.3; Monocytes # (A) 0.5 k/uL (0-1.0); Monocytes % (A) 6 %; Neutrophils # (A) 6.9 k/uL (1.3-7.7); Neutrophils % (A) 84 %; Platelet Count 223 k/uL (150-450); RBC 2.41 m/uL (4.30-5.90); RDW 13.5 % (11.5-15.5); WBC 8.2 k/uL (3.8-10.6)
[2020-03-21] MEDS: TAMSULOSIN 0.4 MG CAP.ER.24H PO SCH (08:47)
[2020-03-21] MEDS: LEVOFLOXACIN 250 MG TAB PO SCH (08:47)
[2020-03-21] MEDS: HYDROcodone/APAP 5-325MG 1 EACH TAB PO PRN (08:47)
[2020-03-21] MEDS: SODIUM BICARBONATE TAB 650 MG TAB PO SCH ×4 (08:47→20:55)
[2020-03-21] MEDS: FLECAINIDE 50 MG TAB PO SCH ×2 (08:47→20:55)
[2020-03-21] MEDS: MAGNESIUM OXIDE 400 MG TAB PO SCH (08:47)
[2020-03-21] MEDS: METOPROLOL TARTRATE 25 MG TAB PO SCH ×2 (08:48→20:55)
[2020-03-21] MEDS: CYANOCOBALAMIN 500 MCG TAB PO SCH (08:48)
[2020-03-21 08:52] LABS: Albumin 2.2 g/dL (3.5-5.0); Magnesium 1.5 mg/dL (1.6-2.3); Potassium 5.3 mmol/L (3.5-5.1); Total Bilirubin 0.4 mg/dL (0.2-1.3); Total Protein 4.7 g/dL (6.3-8.2)
--- NOTE | 2020-03-21 10:47 | P.PN ---
Subjective She was seen in follow-up for acute kidney injury on chronic kidney disease. Patient has chronic kidney disease stage IIIB with baseline creatinine 1.8-2. Creatinine was 5.2 on admission - 2.23 today. Has a Kaiser catheter. Urine output 1.3 L in the last 24 hours. Maintained on IV fluids. Oral intake fair. No chest pain or shortness of breath. Blood pressure stable. he did require a unit of blood on March 18. Vital signs are stable. General: The patient appeared well nourished and normally developed. HEENT: Head exam is unremarkable. Neck is without jugular venous distension. LUNGS: Breath sounds decreased. HEART: Rate and Rhythm are regular. ABDOMEN: Soft, nontender. EXTREMITITES: No edema. Objective - Vital Signs Vital signs: Vital Signs Temp 98.7 F 03/21/20 08:57 Pulse 84 03/21/20 08:57 Resp 16 03/21/20 08:57 BP 103/52 03/21/20 08:57 Pulse Ox 97 03/21/20 08:57 Intake & Output 03/20/20 03/21/20 03/21/20 18:59 06:59 18:59 Intake Total 760 240 Output Total 800 575 475 Balance -40 -575 -235 Intake: Oral 760 240 Output: Urine 800 575 475 Stool 0 0 Other: Voiding Method Indwelling Catheter Indwelling Catheter Indwelling Catheter # Voids 0 # Bowel Movements 0 - Labs CBC & Chem 7: 03/21/20 08:08 03/21/20 08:08 Labs: Abnormal Lab Results - Last 24 Hours (Table) 03/21/20 03/21/20 Range/Units 08:08 08:08 RBC 2.41 L (4.30-5.90) m/uL Hgb 8.2 L (13.0-17.5) gm/dL Hct 24.8 L (39.0-53.0) % MCV 102.8 H (80.0-100.0) fL Lymphocytes # 0.6 L (1.0-4.8) k/uL Sodium 134 L (137-145) mmol/L Potassium 5.3 H (3.5-5.1) mmol/L Chloride 108 H (98-107) mmol/L Carbon Dioxide 21 L (22-30) mmol/L BUN 64 H (9-20) mg/dL Creatinine 2.23 H (0.66-1.25) mg/dL Glucose 118 H (74-99) mg/dL Calcium 8.0 L (8.4-10.2) mg/dL Magnesium 1.5 L (1.6-2.3) mg/dL Total Protein 4.7 L (6.3-8.2) g/dL Albumin 2.2 L (3.5-5.0) g/dL Microbiology - Last 24 Hours (Table) 03/17/20 08:05 Blood Culture - Preliminary Blood No Growth after 96 hours Assessment and Plan Plan: Assessment: 1. Acute kidney injury secondary to obstructive uropathy. Creatinine was 5.29 at admission. It did come down to 1.9 to this admission and is 2.23 today. Nonoliguric. 2. Bilateral hydronephrosis. Has a Kaiser catheter. Urology following. 3. Metabolic acidosis secondary to acute kidney injury and IV fluids. On po bicarb. 4. Chronic kidney disease stage III with baseline creatinine in the range of 1.8-2. 5. Hyperkalemia secondary to acute kidney injury, acidosis, and obstructive uropathy. Better. 6. Anemia of chronic kidney disease. Iron deficiency noted - s/p IV iron. Maintained on Aranesp. 7. Hypomagnesemia from poor intake. 8. UTI. Ucx amara. On fluconazole. 9. A. fib maintained on flecainide and metoprolol. Plan: Mantain NS at 50 mL an hour. Maintain Kaiser catheter. Monitor hemoglobin and transfuse as needed. Replace magnesium. 2 g IV today. Continue to monitor renal function and urine output - if renal function continues to worsen, may need further urologic intervention this admission.
[2020-03-21] MEDS: FLUCONAZOLE IN NACL,ISO-OSM 100 MG in SALINE 1 50ML.BAG IVPB SCH (12:19)
[2020-03-21] MEDS: MAGNESIUM SULFATE-D5W PMX 1 GM in DEXTROSE/WATER 1 100ML.BAG IVPB SCH ×2 (12:19→14:27)
--- NOTE | 2020-03-21 12:55 | P.PN ---
Subjective Progress Note Date: 03/21/20 Principal diagnosis: Acute kidney failure, acute kidney injury, severe generalized symptoms, history of hydronephrosis, recurrent UTI, acute anemia requiring blood transfusion with no sign of bleeding, debility 89-year-old male one of Dr. Ramos's patient with past medical history of A. fib, hypertension, stage III chronic kidney disease, history of kidney stone, recurrent irretractable infection, prostate cancer, history of urinary retention require full catheter in the past who seen urology regular basis, patient also used to live in [place] and used to see urologist on regular basis has been in [facility] for the last year patient continued to have generalized symptoms on and off he was hospitalized last at [facility] in May 19 acute kidney injury and acute kidney failure also had possible history of ventricular arrhythmia was on flecainide that time by the [place] doctor for not no reason. Patient seen nephrology in [facility] and Dr. Ramos on regular basis he presented to the emergency department last night with malaise fatigue and not feeling well overall without any complaint of abdominal pain or change in urination is still having significant decrease in her urine output family were not aware that patient is sick with his presentation with the fatigue tiredness found to have potassium of 6.7 with creatinine of 5.29 with bun of 106 patient hemoglobin was 10.7. Patient also has a BNP of 4350 with significantly elevated blood sugar at the time. Nephrology were called and patient was treated for hyperkalemia in the emergency room brought his number down to 6.1 and furthermore after midnight to 4.9 his bun still 104 with creatinine of 4.22 patient is in acute kidney failure at this time with acute kidney injury most likely ATN on a chronic kidney disease most likely few urinary retention. Bilateral severe hydronephrosis was found on ultrasound of the kidney with no evidence of solid renal mass that similar to what patient had in his CAT SCAN back in 05/02/2019. We'll consult nephrology and urology for possible needing stent and continue hydration continue supportive care for the kidney. 03/14: Patient is doing very well his creatinine is down from yesterday his urine was very positive patient was started on Rocephin until seen the final report of his culture the meanwhile urology and nephrology are seen patient no other patient is given require any intervention or not specially with his bilateral severe hydronephrosis. 03/15: Patients kidney function continues to improve, creatinine 2.93, BUN 76, potassium 4.0, sodium 133. He continues on Rocephin. Continues to be followed by nephrology and urology. Kaiser catheter in place, continues to have good urine output. Vital signs are stable temperature is 98.6, heart rate 74, respiratory rate of 18, blood pressure 101/50, and 7% on room air. 03/16: Patient evaluated this morning lying in bed comfortably. He is noted to be febrile today with a temperature 100.4, heart rate 71, respiratory rate of 18, blood pressure 106/54, 98% on room air. He continues to be treated for UTI with ceftriaxone. Final urine culture shows skin and/or genital vladimir only, will continue on ceftriaxone despite culture results. Kidney function slightly better from yesterday, BUN 64, creatinine 2.59, sodium 133, potassium 4.2. Ferritin elevated at 390.4, secondary to anemia, hemoglobin 8.1. Kaiser catheter still in place continues have good urine output with clear yellow urine. Sodium bicarb drip was discontinued yesterday and he was started on normal saline. 03/17: Patient evaluated, lying in bed, resting comfortably, in no acute distress. Kidney function is down to 2.5 today, Kaiser catheter in place draining clear yellow urine with good urine output. Patient was noted to be febrile last night was a temp of 102.5, did receive a dose of Tylenol, currently 99.3, blood pressure is stable 121/67, respiratory rate of 16, pulse is 81, he is 98% on room air. He continues on Rocephin for his urinary tract infection. Continues with iron infusions for his anemia. We'll repeat CBC and CMP tomorrow. Will have PT OT evaluate for possibility of subacute rehab upon discharge 03/18: Patient evaluated in bed, resting comfortably, patient noted to be pale, continues to be very weak and debilitated. Patient continues to be confused. Patient's hemoglobin noted to drop to 6.7 today, 1 unit of blood was ordered along with CT of the abdomen and pelvis. According to the nurse patient refused the oral contrast and repeat blood draw for type and screen. Patient reported "just leave me alone, I just want to sleep." Patient's sons Jamison and Anjali were contacted and on a 3 way call, who gave verbal consent for the CT and blood transfusion. Discussed patient code status and expectations at discharge. Patient will likely need subacute rehab and 16/[address] Bustillos did evaluate patient and he does not qualify for inpatient rehab. Family would like to discussed CODE STATUS before it is changed, currently patient is full code. 03/19: Patient has done better so far since his transfusion is less confusing before his hemoglobin went up to 8 g no sign of GI bleed currently, still have Kaiser catheter and, patient is now moving out of bed at all require more help than expected for home patient was seen by Dr. Bustillos and decline inpatient rehab would be more like subacute rehab. 03/20: Hemoglobin dropped down slightly no need for transfusion so far patient still not doing well with physical therapy we'll titrate physical therapy and review Dr. Fang note he is not accepted to inpatient rehab which will be more like subacute rehab for sometimes on Sunday in the meanwhile continue current IV antibiotic his urine culture came back positive for candidiasis which patient will be on Diflucan IV for the next 7 days. 03/21: Patient is doing much better clinically, slight increase in kidney function today, patient is still debilitated not been able template and walk will address with the family possibility for rehab patient might benefit from subacute rehab over the next 2 days. Objective - Vital Signs Vital signs: Vital Signs Temp 98.7 F 03/21/20 08:57 Pulse 84 03/21/20 08:57 Resp 16 03/21/20 08:57 BP 103/52 03/21/20 08:57 Pulse Ox 97 03/21/20 08:57 Intake & Output 03/20/20 03/21/20 03/21/20 18:59 06:59 18:59 Intake Total 760 240 Output Total 800 575 475 Balance -40 -575 -235 Intake: Oral 760 240 Output: Urine 800 575 475 Stool 0 0 Other: Voiding Method Indwelling Catheter Indwelling Catheter Indwelling Catheter # Voids 0 # Bowel Movements 0 - Exam Review of Systems CONSTITUTIONAL: Look malnourished although than his age in no acute despite a distress EYES: No icterus sclerae, no conjunctivitis. EARS, NOSE, MOUTH, THROAT, and FACE: No sore throat, lymphadenopathy, carotid bruits or deformity. RESPIRATORY: Mild shortness of breath no cough or wheezes. CARDIOVASCULAR: Positive PND or troponin palpitation. GASTROINTESTINAL: No Abd pain, Nausea or vomiting, no Diarrhea or constipation, No GI Bleed, no distention or masses. GENITOURINARY: Decrease urine output with chronic kidney disease. INTEGUMENT/BREAST: Negative for any muscular injury with mild osteoarthritis.. HEMATOLOGIC/LYMPHATIC: Negative for bleed or purpura. MUSCULOSKELTAL: Negative for Myalgia or arthralgia. NEURLOGICAL: Mild altered mental status with no syncope no blurred vision slight dizziness and abnormal balance and gait. BEHAVIORAL/PSYCH: Negative. ENDOCRINE: Negative. Medications and Allergies Home Medications Medication Instructions Recorded Confirmed Type Cyanocobalamin [Vitamin B-12] 500 mcg PO BID 05/01/19 03/12/20 History Flecainide Acetate 50 mg PO BID 05/01/19 03/12/20 History Metoprolol Tartrate [Lopressor] 25 mg PO BID 05/01/19 03/12/20 History Tamsulosin [Flomax] 0.4 mg PO DAILY 05/01/19 03/12/20 History Magnesium Oxide 420mg 420 mg PO DAILY 03/12/20 03/12/20 History Allergies Allergy/AdvReac Type Severity Reaction Status Date / Time No Known Allergies Allergy Verified 03/12/20 18:37 Physical Exam Vitals: Vital Signs Temp Pulse Pulse Resp BP BP Pulse Ox 03/13/20 08:00 98.2 F 82 18 99/52 96 03/13/20 04:11 98.7 F 90 16 109/64 98 03/12/20 23:21 110 H 16 103/56 100 03/12/20 20:50 98.6 F 116 H 18 111/62 96 03/12/20 18:44 118 H 18 122/67 92 L 03/12/20 17:59 91 03/12/20 17:51 97 03/12/20 17:00 93 18 129/85 98 03/12/20 16:02 95 18 113/95 97 03/12/20 15:14 96.3 F L 99 20 110/64 93 L Intake and Output 03/12/20 03/13/20 03/13/20 22:59 06:59 14:59 Output Total 200 Balance -200 Output: Urine 200 Other: Voiding Method Urinal Urinal # Voids 0 1 Weight 56.699 kg 58 kg General Appearance: Alert, cooperative, no distress, appears older than his a Neck HEENT: Supple, no lymphadenopathy, no thyroid enlargement, no carotid bruits. Lungs: Decreased breath sound bilaterally with fine rhonchi positive mild expiratory wheezes. Chest Wall: Decrease expansion with deep inspiration no tenderness and no deformity was found on exam, no costochondral pain or discomfort. Heart: Irregular rate and rhythm, S1, S2 positive S3 positive PVCs Back: Symmetric, no curvature, ROM normal, no CVA tenderness. Abdomen: Soft, non-tender, bowel sounds active all four quadrants, no masses, no organomegaly. Extremities: Extremities normal, atraumatic, no cyanosis or edema. Slight discoloration from the knee down. Pulses: 2+ and symmetric. Skin: Skin color, texture, tugor normal, no rashes or lesions. Neurologic: Alert oriented with slight confusion cranial nerves II through XII intact, generalized motor weakness, positive abnormal balance or gait. - Labs CBC & Chem 7: 03/21/20 08:08 03/21/20 08:08 Labs: Abnormal Lab Results - Last 24 Hours (Table) 03/21/20 03/21/20 Range/Units 08:08 08:08 RBC 2.41 L (4.30-5.90) m/uL Hgb 8.2 L (13.0-17.5) gm/dL Hct 24.8 L (39.0-53.0) % MCV 102.8 H (80.0-100.0) fL Lymphocytes # 0.6 L (1.0-4.8) k/uL Sodium 134 L (137-145) mmol/L Potassium 5.3 H (3.5-5.1) mmol/L Chloride 108 H (98-107) mmol/L Carbon Dioxide 21 L (22-30) mmol/L BUN 64 H (9-20) mg/dL Creatinine 2.23 H (0.66-1.25) mg/dL Glucose 118 H (74-99) mg/dL Calcium 8.0 L (8.4-10.2) mg/dL Magnesium 1.5 L (1.6-2.3) mg/dL Total Protein 4.7 L (6.3-8.2) g/dL Albumin 2.2 L (3.5-5.0) g/dL Microbiology - Last 24 Hours (Table) 03/17/20 08:05 Blood Culture - Preliminary Blood No Growth after 96 hours Assessment and Plan Assessment: 1 acute kidney failure: Most likely secondary to ATN, patient is much better still have chronic kidney disease more stage III at this point and continue hydration continue to watch kidney function regular basis. 2 bilateral hydronephrosis not a clear etiology whether related to prostate cancer or obstruction not clear patient might require Kaiser catheter as well. He states seen urology and no 3 A. fib: Patient remain on the flecainide and metoprolol is not on any anticoagulation currently most likely because of higher on for fall and injury. 4 severe anemia: Post blood transfusion no sign of GI bleed continue to watch CBC daily. 5 severe hyperkalemia: Continue to treat his potassium and continue to work on improving his kidney function for better control of longer on. 6 hypertension: Still on metoprolol 25 mg twice a day. 7 hyperglycemia: Continue Accu-Chek with sliding scales coverage. 8. Prostate cancer post radiation. 9 recurrent UTI with no UA done this time will try to do Kaiser catheter and UA culture possible. Urine culture showing candidiasis patient will be on Diflucan IV. CODE STATUS: Full code. Discharge planning: Advance PTOT and patient will require probably to go to rehab.
[2020-03-22] MEDS: PANTOPRAZOLE 40 MG TABLET PO SCH (07:03)
[2020-03-22 07:33] LABS: HCT 26.3 % (39.0-53.0); HGB 8.2 gm/dL (13.0-17.5); Hypochromasia Moderate; MCH 32.7 pg (25.0-35.0); MCHC 31.2 g/dL (31.0-37.0); MCV 104.7 fL (80.0-100.0); Macrocytosis Slight; Mean Platelet Volume 8.5; Platelet Count 257 k/uL (150-450); RBC 2.51 m/uL (4.30-5.90); RDW 13.5 % (11.5-15.5); WBC 6.9 k/uL (3.8-10.6)
[2020-03-22 07:56] LABS: Albumin 2.2 g/dL (3.5-5.0); Calcium 7.9 mg/dL (8.4-10.2); Potassium 5.8 mmol/L (3.5-5.1); Total Bilirubin 0.5 mg/dL (0.2-1.3); Total Protein 4.9 g/dL (6.3-8.2)
[2020-03-22] MEDS: TAMSULOSIN 0.4 MG CAP.ER.24H PO SCH (09:25)
[2020-03-22] MEDS: SODIUM BICARBONATE TAB 650 MG TAB PO SCH ×4 (09:25→21:23)
[2020-03-22] MEDS: FLECAINIDE 50 MG TAB PO SCH ×2 (09:25→21:23)
[2020-03-22] MEDS: METOPROLOL TARTRATE 25 MG TAB PO SCH ×2 (09:25→21:23)
[2020-03-22] MEDS: MAGNESIUM OXIDE 400 MG TAB PO SCH (09:26)
[2020-03-22] MEDS: CYANOCOBALAMIN 500 MCG TAB PO SCH (09:26)
[2020-03-22] MEDS: HYDROcodone/APAP 5-325MG 1 EACH TAB PO PRN (09:26)
[2020-03-22] MEDS: SODIUM CHLORIDE 0.9% 1,000 ML IV SCH (09:28)
[2020-03-22] MEDS: FLUCONAZOLE IN NACL,ISO-OSM 100 MG in SALINE 1 50ML.BAG IVPB SCH (09:33)
[2020-03-22] MEDS: LEVOFLOXACIN 250 MG TAB PO SCH (09:33)
[2020-03-22] MEDS ORDERED: DEXTROSE 50% SYRINGE 50 ML IVP STA (09:39)
[2020-03-22] MEDS ORDERED: INSULIN REGULAR 100 UNIT/ML VIAL IV ONE (09:39)
--- NOTE | 2020-03-22 10:54 | P.DS ---
Providers Date of admission: 03/12/20 17:06 Expected date of discharge: 03/22/20 Attending physician: Akanksha Arredondo Consults: 03/12/20 17:07 Consult Physician Routine Consulting Provider: Nida Villa Consult Reason/Comments: kidney failure Do you want consulting provider notified?: Yes 03/13/20 13:04 Consult Physician Routine Consulting Provider: Dain Johnson Consult Reason/Comments: Hydronephrosis Do you want consulting provider notified?: Yes 03/17/20 11:52 Consult Physician Routine Consulting Provider: Fred Bustillos Consult Reason/Comments: IPR Do you want consulting provider notified?: Yes Primary care physician: Dev Ramos [facility] Course: Acute kidney failure, acute kidney injury, severe generalized symptoms, history of hydronephrosis, recurrent UTI, acute anemia requiring blood transfusion with no sign of bleeding, debility -year-old male one of Dr. Ramos's patient with past medical history of A. fib, hypertension, stage III chronic kidney disease, history of kidney stone, recurrent irretractable infection, prostate cancer, history of urinary retention require full catheter in the past who seen urology regular basis, patient also used to live in [place] and used to see urologist on regular basis has been in [facility] for the last year patient continued to have generalized symptoms on and off he was hospitalized last at [facility] in May 19 acute kidney injury and acute kidney failure also had possible history of ventricular arrhythmia was on flecainide that time by the [place] doctor for not no reason. Patient seen nephrology in [facility] and Dr. Ramos on regular basis he presented to the emergency department last night with malaise fatigue and not feeling well overall without any complaint of abdominal pain or change in urination is still having significant decrease in her urine output family were not aware that patient is sick with his presentation with the fatigue tiredness found to have potassium of 6.7 with creatinine of 5.29 with bun of 106 patient hemoglobin was 10.7. Patient also has a BNP of 4350 with significantly elevated blood sugar at the time. Nephrology were called and patient was treated for hyperkalemia in the emergency room brought his number down to 6.1 and furthermore after midnight to 4.9 his bun still 104 with creatinine of 4.22 patient is in acute kidney failure at this time with acute kidney injury most likely ATN on a chronic kidney disease most likely few urinary retention. Bilateral severe hydronephrosis was found on ultrasound of the kidney with no evidence of solid renal mass that similar to what patient had in his CAT SCAN back in 05/02/2019. We'll consult nephrology and urology for possible needing stent and continue hydration continue supportive care for the kidney. 03/14: Patient is doing very well his creatinine is down from yesterday his urine was very positive patient was started on Rocephin until seen the final report of his culture the meanwhile urology and nephrology are seen patient no other patient is given require any intervention or not specially with his bilateral severe hydronephrosis. 03/15: Patients kidney function continues to improve, creatinine 2.93, BUN 76, potassium 4.0, sodium 133. He continues on Rocephin. Continues to be followed by nephrology and urology. Kaiser catheter in place, continues to have good urine output. Vital signs are stable temperature is 98.6, heart rate 74, respiratory rate of 18, blood pressure 101/50, and 7% on room air. 03/16: Patient evaluated this morning lying in bed comfortably. He is noted to be febrile today with a temperature 100.4, heart rate 71, respiratory rate of 18, blood pressure 106/54, 98% on room air. He continues to be treated for UTI with ceftriaxone. Final urine culture shows skin and/or genital vladimir only, will continue on ceftriaxone despite culture results. Kidney function slightly better from yesterday, BUN 64, creatinine 2.59, sodium 133, potassium 4.2. Ferritin elevated at 390.4, secondary to anemia, hemoglobin 8.1. Kaiser catheter still in place continues have good urine output with clear yellow urine. Sodium bicarb drip was discontinued yesterday and he was started on normal saline. 03/17: Patient evaluated, lying in bed, resting comfortably, in no acute distress. Kidney function is down to 2.5 today, Kaiser catheter in place draining clear yellow urine with good urine output. Patient was noted to be febrile last night was a temp of 102.5, did receive a dose of Tylenol, currently 99.3, blood pressure is stable 121/67, respiratory rate of 16, pulse is 81, he is 98% on room air. He continues on Rocephin for his urinary tract infection. Continues with iron infusions for his anemia. We'll repeat CBC and CMP tomorrow. Will have PT OT evaluate for possibility of subacute rehab upon discharge 03/18: Patient evaluated in bed, resting comfortably, patient noted to be pale, continues to be very weak and debilitated. Patient continues to be confused. Patient's hemoglobin noted to drop to 6.7 today, 1 unit of blood was ordered along with CT of the abdomen and pelvis. According to the nurse patient refused the oral contrast and repeat blood draw for type and screen. Patient reported "just leave me alone, I just want to sleep." Patient's sons Jamison and Anjali were contacted and on a 3 way call, who gave verbal consent for the CT and blood transfusion. Discussed patient code status and expectations at discharge. Patient will likely need subacute rehab and 16/[address] Bustillos did evaluate patient and he does not qualify for inpatient rehab. Family would like to discussed CODE STATUS before it is changed, currently patient is full code. 03/19: Patient has done better so far since his transfusion is less confusing before his hemoglobin went up to 8 g no sign of GI bleed currently, still have Kaiser catheter and, patient is now moving out of bed at all require more help than expected for home patient was seen by Dr. Bustillos and decline inpatient rehab would be more like subacute rehab. 03/20: Hemoglobin dropped down slightly no need for transfusion so far patient still not doing well with physical therapy we'll titrate physical therapy and review Dr. Fang note he is not accepted to inpatient rehab which will be more like subacute rehab for sometimes on Sunday in the meanwhile continue current IV antibiotic his urine culture came back positive for candidiasis which patient will be on Diflucan IV for the next 7 days. 03/21: Patient is doing much better clinically, slight increase in kidney function today, patient is still debilitated not been able template and walk will address with the family possibility for rehab patient might benefit from subacute rehab over the next 2 days. 03/22: Patient evaluated, resting comfortably in bed in no acute distress. Hemoglobin is stable at 8.2, kidney function unchanged from yesterday, BUN 60, creatinine 2.17. Urine culture positive for Joeclyn albicans, patient remains on Diflucan. Patient still very weak and debilitated and requires assistance with ADLs. Patient will be discharged to [facility] if family is agreeable. Discharge diagnoses 1 acute kidney failure 2 bilateral hydronephrosis not a clear etiology whether related to prostate cancer or obstruction 3 A. fib 4 severe anemia 5 severe hyperkalemia 6 hypertension 7 hyperglycemia 8. Prostate cancer post radiation. 9 recurrent UTI CODE STATUS: Full code. The above impression and plan of care have been discussed and directed by signing physician. Arabella Tony nurse practitioner acting as scribe for signing physician. Patient Condition at Discharge: Serious Plan - Discharge Summary Discharge Rx Participant: No New Discharge Prescriptions: No Action Flecainide Acetate 50 mg PO BID Cyanocobalamin [Vitamin B-12] 500 mcg PO BID Tamsulosin [Flomax] 0.4 mg PO DAILY Metoprolol Tartrate [Lopressor] 25 mg PO BID Magnesium Oxide 420mg 420 mg PO DAILY Discharge Medication List Cyanocobalamin [Vitamin B-12] 500 mcg PO BID 05/01/19 [History] Flecainide Acetate 50 mg PO BID 05/01/19 [History] Metoprolol Tartrate [Lopressor] 25 mg PO BID 05/01/19 [History] Tamsulosin [Flomax] 0.4 mg PO DAILY 05/01/19 [History] Magnesium Oxide 420mg 420 mg PO DAILY 03/12/20 [History] Follow up Appointment(s)/Referral(s): Dev Ramos MD [Primary Care Provider] - 1-2 days
--- NOTE | 2020-03-22 13:29 | PN ---
PROGRESS NOTE Patient is seen for followup for acute kidney injury. He is currently sitting up with physiotherapy. Denies any significant complaints. He has had good urine output. Renal function is fairly stable. Serum creatinine staying at about 2.1-2.2 mg/dL. Patient has an indwelling Kaiser catheter, 24-hour urine output at 2.1 L. PHYSICAL EXAMINATION: On examination today, blood pressure was 116/45, heart rate 72 per minute. He is afebrile. EXAMINATION OF THE HEART: S1, S2. EXAMINATION OF LUNGS: Decreased breath sounds at bases. Bilateral breath sounds are heard. Abdomen is soft, nontender, obese. Examination of the lower extremities shows chronic skin changes, trace edema left lower extremity. LABS: Labs show sodium 134, potassium 5.8, chloride 109. CO2 is 20, BUN 68, creatinine 2.17. Albumin 2.2. ASSESSMENT: 1. Acute kidney injury associated with obstructive uropathy, now improved. Renal function fairly stable. The patient follows with Urology. He currently has a Kaiser catheter. 2. Chronic kidney disease, stage 3, baseline creatinine 1.8-2. 3. Metabolic acidosis associated with acute kidney injury, on IV fluids, maintained on oral sodium bicarb. 4. Candiduria, maintained on fluconazole. 5. Atrial fibrillation, maintained on flecainide and metoprolol. 6. Anemia of chronic disease, status post IV iron for iron deficiency also maintained on Aranesp. PLAN: Followup as outpatient for CKD. Treat hyperkalemia with insulin and D50. Maintained on low-potassium diet. Monitor potassium as outpatient. Consider loop diuretics. MMODL / IJN: [id number] /
[2020-03-23] MEDS: PANTOPRAZOLE 40 MG TABLET PO SCH (06:49)
[2020-03-23] MEDS: METOPROLOL TARTRATE 25 MG TAB PO SCH (07:55)
[2020-03-23] MEDS: CYANOCOBALAMIN 500 MCG TAB PO SCH (07:55)
[2020-03-23] MEDS: MAGNESIUM OXIDE 400 MG TAB PO SCH (07:55)
[2020-03-23] MEDS: SODIUM BICARBONATE TAB 650 MG TAB PO SCH (07:55)
[2020-03-23] MEDS: TAMSULOSIN 0.4 MG CAP.ER.24H PO SCH (07:55)
[2020-03-23] MEDS: FLECAINIDE 50 MG TAB PO SCH (07:55)
[2020-03-23] MEDS: LEVOFLOXACIN 250 MG TAB PO SCH (07:55)
[2020-03-23 07:59] VITALS: BP 132/65; PULSE 89; RESP 18; TEMP 97.9
[2020-03-23] MEDS ORDERED: FLUCONAZOLE 100 MG TAB PO SCH (09:00)
[2020-03-23 09:03] LABS: HCT 28.3 % (39.0-53.0); HGB 8.7 gm/dL (13.0-17.5); Hypochromasia Marked; MCH 32.9 pg (25.0-35.0); MCHC 30.9 g/dL (31.0-37.0); MCV 106.6 fL (80.0-100.0); Macrocytosis Moderate; Platelet Count 337 k/uL (150-450); RBC 2.66 m/uL (4.30-5.90); RDW 13.6 % (11.5-15.5); WBC 7.2 k/uL (3.8-10.6)
[2020-03-23 09:21] LABS: Albumin 2.5 g/dL (3.5-5.0); Calcium 8.2 mg/dL (8.4-10.2); Potassium 5.4 mmol/L (3.5-5.1); Total Bilirubin 0.4 mg/dL (0.2-1.3); Total Protein 5.2 g/dL (6.3-8.2)
--- NOTE | 2020-03-23 10:30 | P.PN ---
Subjective cute kidney failure, acute kidney injury, severe generalized symptoms, history of hydronephrosis, recurrent UTI, acute anemia requiring blood transfusion with no sign of bleeding, debility 89-year-old male one of Dr. Ramos's patient with past medical history of A. fib, hypertension, stage III chronic kidney disease, history of kidney stone, recurre nt irretractable infection, prostate cancer, history of urinary retention require full catheter in the past who seen urology regular basis, patient also used to live in [place] and used to see urologist on regular basis has been in [facility] for the last year patient continued to have generalized symptoms on and off he was hospitalized last at [facility] in May 19 acute kidney injury and acute kidney failure also had possible history of ventricular arrhythmia was on flecainide that time by the [place] doctor for not no reason. Patient seen nephrology in [facility] and Dr. Ramos on regular basis he presented to the emergency department last night with malaise fatigue and not feeling well overall without any complaint of abdominal pain or change in urination is still having significant decrease in her urine output family were not aware that patient is sick with his presentation with the fatigue tiredness found to have potassium of 6.7 with creatinine of 5.29 with bun of 106 patient hemoglobin was 10.7. Patient also has a BNP of 4350 with significantly elevated blood sugar at the time. Nephrology were called and patient was treated for hyperkalemia in the emergency room brought his number down to 6.1 and furthermore after midnight to 4.9 his bun still 104 with creatinine of 4.22 patient is in acute kidney failure at this time with acute kidney injury most likely ATN on a chronic ki dney disease most likely few urinary retention. Bilateral severe hydronephrosis was found on ultrasound of the kidney with no evidence of solid renal mass that similar to what patient had in his CAT SCAN back in 05/02/2019. We'll consult nephrology and urology for possible needing stent and continue hydration continue supportive care for the kidney. 03/14: Patient is doing very well his creatinine is down from yesterday his urine was very positive patient was started on Rocephin until seen the final report of his culture the meanwhile urology and nephrology are seen patient no other patient is given require any intervention or not specially with his bilateral severe hydronephrosis. 03/15: Patients kidney function continues to improve, creatinine 2.93, BUN 76, potassium 4.0, sodium 133. He continues on Rocephin. Continues to be followed by nephrology and urology. Garza catheter in place, continues to have good urine output. Vital signs are stable temperature is 98.6, heart rate 74, respiratory rate of 18, blood pressure 101/50, and 7% on room air. 03/16: Patient evaluated this morning lying in bed comfortably. He is noted to be febrile today with a temperature 100.4, heart rate 71, respiratory rate of 18, blood pressure 106/54, 98% on room air. He continues to be treated for UTI with ceftriaxone. Final urine culture shows skin and/or genital vladimir only, will continue on ceftriaxone despite culture results. Kidney function slightly better from yesterday, BUN 64, creatinine 2.59, sodium 133, potassium 4.2. Ferritin elevated at 390.4, secondary to anemia, hemoglobin 8.1. Garza catheter still in place continues have good urine output with clear yellow urine. Sodium bicarb drip was discontinued yesterday and he was started on normal saline. 03/17: Patient evaluated, lying in bed, resting comfortably, in no acute distress. Kidney function is down to 2.5 today, Garza catheter in place draining clear yellow urine with good urine output. Patient was noted to be febrile last night was a temp of 102.5, did receive a dose of Tylenol, currently 99.3, blood pressure is stable 121/67, respiratory rate of 16, pulse is 81, he is 98% on room air. He continues on Rocephin for his urinary tract infection. Continues with iron infusions for his anemia. We'll repeat CBC and CMP tomorrow. Will have PT OT evaluate for possibility of subacute rehab upon discharge 03/18: Patient evaluated in bed, resting comfortably, patient noted to be pale, continues to be very weak and debilitated. Patient continues to be confused. Patient's hemoglobin noted to drop to 6.7 today, 1 unit of blood was ordered along with CT of the abdomen and pelvis. According to the nurse patient refused the oral contrast and repeat blood draw for type and screen. Patient reported " just leave me alone, I just want to sleep." Patient's sons Jamison and Anjali were contacted and on a 3 way call, who gave verbal consent for the CT and blood transfusion. Discussed patient code status and expectations at discharge. Patient will likely need subacute rehab and 16/[address] Bustillos did evaluate patient and he does not qualify for inpatient rehab. Family would like to discussed CODE STATUS before it is changed, currently patient is full code. 03/19: Patient has done better so far since his transfusion is less confusing before his hemoglobin went up to 8 g no sign of GI bleed currently, still have Garza catheter and, patient is now moving out of bed at all require more help than expected for home patient was seen by Dr. Bustillos and decline inpatient rehab would be more like subacute rehab. 03/20: Hemoglobin dropped down slightly no need for transfusion so far patient still not doing well with physical therapy we'll titrate physical therapy and review Dr. Fang note he is not accepted to inpatient rehab which will be more like subacute rehab for sometimes on Sunday in the meanwhile continue current IV antibiotic his urine culture came back positive for candidiasis which patient will be on Diflucan IV for the next 7 days. 03/21: Patient is doing much better clinically, slight increase in kidney function today, patient is still debilitated not been able template and walk will address with the family possibility for rehab patient might benefit from subacute rehab over the next 2 days. 03/22: Patient evaluated, resting comfortably in bed in no acute distress. H emoglobin is stable at 8.2, kidney function unchanged from yesterday, BUN 60, creatinine 2.17. Urine culture positive for Jocelyn albicans, patient remains on Diflucan. Patient still very weak and debilitated and requires assistance with ADLs. Patient will be discharged to [facility] if family is agreeable. 03/23: Patient evaluated today. Labs remain about the same creatinine 2.21, BUN 66, hemoglobin is stable today at 8.7. Potassium 5.4, after receiving dextrose and insulin yesterday. Family has decided to take patient home with homecare. Patient will be discharged home today with [facility] care. Objective - Vital Signs Vital signs: Vital Signs Temp 97.9 F 03/23/20 07:58 Pulse 89 03/23/20 07:58 Resp 18 03/23/20 08:00 BP 132/65 03/23/20 07:58 Pulse Ox 96 03/23/20 07:58 Intake & Output 03/22/20 03/23/20 03/23/20 18:59 06:59 18:59 Intake Total 1796 480 240 Output Total 750 1310 600 Balance 1046 -490 360 Intake: IV 600 Sodium Chloride 0.9% 1, 600 000 ml @ 50 mls/hr IV . Q20H SAHIL Rx#:[id number] Intake, IV Titration 50 Amount Fluconazole in NaCl,Iso- 50 Osm 100 mg In Saline 1 50ml.bag @ 50 mls/hr IVPB DAILY SAHIL Rx#:[id number] Oral 1146 480 240 Output: Urine 750 1310 600 Stool 0 Other: Voiding Method Indwelling Catheter Indwelling Catheter Indwelling Catheter - Exam General Appearance: Alert, cooperative, no acute distress Neck HEENT: Supple, no lymphadenopathy, no thyroid enlargement, no carotid bruits. Lungs: Decreased breath sound bilaterally Chest Wall: Decrease expansion with deep inspiration no tenderness and no deformity was found on exam, no costochondral pain or discomfort Heart: Irregular rate and rhythm, S1, S2 positive S3 positive PVCs Back: Symmetric, no curvature, ROM normal, no CVA tenderness. Abdomen: Soft, non-tender, bowel sounds active all four quadrants, no masses, no organomegaly Extremities: Extremities normal, atraumatic, no cyanosis or edema. Slight discoloration from the knee down Pulses: 2+ and symmetric Skin: Skin color, texture, tugor normal, no rashes or lesions Neurologic: Alert oriented with mild confusion cranial nerves II through XII intact, generalized weakness and debility. - Labs CBC & Chem 7: 03/23/20 08:53 03/23/20 08:53 Labs: Abnormal Lab Results - Last 24 Hours (Table) 03/23/20 03/23/20 Range/Units 08:53 08:53 RBC 2.66 L (4.30-5.90) m/uL Hgb 8.7 L (13.0-17.5) gm/dL Hct 28.3 L (39.0-53.0) % MCV 106.6 H (80.0-100.0) fL MCHC 30.9 L (31.0-37.0) g/dL Sodium 135 L (137-145) mmol/L Potassium 5.4 H (3.5-5.1) mmol/L Chloride 109 H (98-107) mmol/L BUN 66 H (9-20) mg/dL Creatinine 2.21 H (0.66-1.25) mg/dL Glucose 110 H (74-99) mg/dL Calcium 8.2 L (8.4-10.2) mg/dL Total Protein 5.2 L (6.3-8.2) g/dL Albumin 2.5 L (3.5-5.0) g/dL Microbiology - Last 24 Hours (Table) 03/17/20 08:05 Blood Culture - Preliminary Blood No Growth after 120 hours Assessment and Plan Plan: 1 acute kidney failure: Most likely secondary to ATN, patient also had bilateral chronic hydronephrosis 2 bilateral hydronephrosis not a clear etiology whether related to prostate cancer or obstruction. Treat infection continue hydration repeat BUN/creatinine, garza cath 3 A. fib: Patient remain on the flecainide and metoprolol is not on any anticoagulation currently most likely because of risk for falls 4 hypertension was on beta mejia with metoprolol. 5 severe hyperkalemia: Has normalized 6 chronic anemia: Most likely iron deficiency and could be combination of GI bleed and chronic kidney disease 7 hyperglycemia: Continue Accu-Chek with sliding scales coverage. 8. Prostate cancer post radiation. 9 recurrent UTI. Will be discharged with antibiotics and Diflucan 10 DVT prophylaxis: Venodyne boots and early mobilization. 11 GI prophylaxis: Patient be on Pepcid 20 mg daily. The above impression and plan of care have been discussed and directed by signing physician. Arabella Tony nurse practitioner acting as scribe for signing physician.
[2020-03-23] MEDS: SODIUM CHLORIDE 0.9% 1,000 ML IV SCH (11:36)
[2020-03-23 12:55] VITALS: BMI 20.4
== END 2020-03-23 13:04 | disposition home health service (06) | DRG 683 ==
LOC: EC 15:13 → 3SCARD 17:06 → 3NCARDOBS 03-17 00:05 → 3SCARD 03-17 00:39 → 3NCARDOBS 03-22 22:32 → 3SCARD 03-22 22:32
PROVIDERS: ADMIT Family Medicine; ATTEND Family Medicine
PROC: 30233N1 Transfusion of Nonautologous Red Blood Cells into Peripheral Vein, Percutaneous Approach (ICD-10-PCS; principal; 2020-03-18)
DX: N17.0 Acute kidney failure with tubular necrosis (principal); B37.49 Other urogenital candidiasis; E46 Unspecified protein-calorie malnutrition; E87.2 Acidosis; E87.1 Hypo-osmolality and hyponatremia; I48.91 Unspecified atrial fibrillation; N13.30 Unspecified hydronephrosis; D63.1 Anemia in chronic kidney disease; I12.9 Hypertensive chronic kidney disease with stage 1 through stage 4 chronic kidney disease, or unspecified chronic kidney disease; E87.5 Hyperkalemia; Z68.20 Body mass index [BMI] 20.0-20.9, adult; Z20.828 Contact with and (suspected) exposure to other viral communicable diseases; N18.32 Chronic kidney disease, stage 3b; E83.42 Hypomagnesemia; D50.9 Iron deficiency anemia, unspecified; G89.29 Other chronic pain; R73.9 Hyperglycemia, unspecified; N42.9 Disorder of prostate, unspecified; H91.90 Unspecified hearing loss, unspecified ear; M54.5 Low back pain; Z79.899 Other long term (current) drug therapy; Z87.891 Personal history of nicotine dependence; Z85.46 Personal history of malignant neoplasm of prostate; Z92.3 Personal history of irradiation; Z87.442 Personal history of urinary calculi; Z87.440 Personal history of urinary (tract) infections; Z90.49 Acquired absence of other specified parts of digestive tract; Z87.19 Personal history of other diseases of the digestive system; Z86.14 Personal history of Methicillin resistant Staphylococcus aureus infection; Z98.890 Other specified postprocedural states; Z82.49 Family history of ischemic heart disease and other diseases of the circulatory system
CPT/HCPCS: 36415; 71045; 74176; 76770; 80048; 80053; 81001; 82728; 83540; 83550; 83605; 83735; 83880; 84132; 84153; 84484; 85025; 85027; 85610; 85730; 86850; 86900; 86901; 86920; 87040; 87086; 87324; 87635; 93005; 96365; 96375; 99285

== ENCOUNTER 2020-06-02 16:28 | Inpatient (IN) | payer OTHER, MEDICARE ==
[2020-06-02] MEDS ORDERED: SODIUM CHLORIDE 0.9% 1,000 ML IV STA (16:45)
--- NOTE | 2020-06-02 16:51 | ED ---
General Adult HPI - General Chief complaint: Weakness Stated complaint: weakness Time Seen by Provider: 06/02/20 16:31 Source: patient, EMS, RN notes reviewed Mode of arrival: EMS Limitations: no limitations - History of Present Illness Initial comments: Patient is a pleasant 89-year-old male presenting to the emergency department with complaints of generalized weakness. Patient is a very poor historian and offers very little history. Patient reports he was released from the half-way a week or more ago. Patient reportedly has had increased falls and decreased appetite. Further history is limited. Patient denies isolated area of weakness. Patient denies confusion. Symptoms have progressively worsened. - Related Data Home Medications Medication Instructions Recorded Confirmed Cyanocobalamin [Vitamin B-12] 500 mcg PO BID 05/01/19 03/12/20 Flecainide Acetate 50 mg PO BID 05/01/19 03/12/20 Metoprolol Tartrate [Lopressor] 25 mg PO BID 05/01/19 03/12/20 Tamsulosin [Flomax] 0.4 mg PO DAILY 05/01/19 03/12/20 Magnesium Oxide 420mg 420 mg PO DAILY 03/12/20 03/12/20 Previous Rx's Medication Instructions Recorded Acetaminophen Tab [Tylenol] 650 mg PO Q6HR PRN tab 03/23/20 Docusate [Colace] 100 mg PO BID PRN #60 cap 03/23/20 Fluconazole [Diflucan] 100 mg PO DAILY #3 tab 03/23/20 Levofloxacin [Levaquin] 250 mg PO Q24H #5 tab 03/23/20 Pantoprazole [Protonix] 40 mg PO AC-BRKFST #30 tablet. 03/23/20 Sodium Bicarbonate Tab 650 mg PO QID #120 tab 03/23/20 Allergies Allergy/AdvReac Type Severity Reaction Status Date / Time No Known Allergies Allergy Verified 03/12/20 18:37 Review of Systems ROS Statement: Those systems with pertinent positive or pertinent negative responses have been documented in the HPI. ROS Other: All systems not noted in ROS Statement are negative. Constitutional: Denies: fever Eyes: Denies: eye pain ENT: Denies: ear pain Respiratory: Denies: cough, dyspnea Cardiovascular: Denies: chest pain Endocrine: Denies: fatigue Gastrointestinal: Denies: abdominal pain Genitourinary: Denies: dysuria Musculoskeletal: Denies: back pain Skin: Denies: rash Neurological: Reports: as per HPI. Denies: headache Past Medical History Past Medical History: Atrial Fibrillation, Cancer, Hypertension, Prostate Diso rder, Renal Disease Additional Past Medical History / Comment(s): Prosate cancer with radiation, kidney stones passed on his own and surgically removed, UTIs, chronic low back pain, occasional sinus problems. JENA. History of Any Multi-Drug Resistant Organisms: MRSA Date of last positivie culture/infection: 2017 MDRO Source:: urine? family/pt unsure Past Surgical History: Appendectomy, Hernia Repair, Orthopedic Surgery Additional Past Surgical History / Comment(s): Lithotripsy, hiatal hernia repair, L knee open surgery to "clean it out", colonoscopy, circumcism later in life d/t UTIs. Past Anesthesia/Blood Transfusion Reactions: No Reported Reaction Past Psychological History: No Psychological Hx Reported Smoking Status: Never smoker Past Alcohol Use History: None Reported Past Drug Use History: None Reported - Past Family History Father Family Medical History: Hypertension Additional Family Medical History / Comment(s): Father at age 82 from old age. Mother Additional Family Medical History / Comment(s): Mother at age 82 and was in a coma at the time. Patient is unsure of cause of her or causative coma. Brother(s) Additional Family Medical History / Comment(s): Patient has 1 brother that is . He is not know any of his medical history. Patient does not have any sisters. Patient has 4 daughters and 4 sons with no major medical problems. General Exam Limitations: no limitations General appearance: alert, in no apparent distress Head exam: Present: atraumatic Eye exam: Present: normal appearance, PERRL, EOMI ENT exam: Present: normal oropharynx Neck exam: Present: normal inspection. Absent: tenderness Respiratory exam: Present: normal lung sounds bilaterally Cardiovascular Exam: Present: regular rate, normal rhythm GI/Abdominal exam: Present: soft. Absent: tenderness Extremities exam: Present: normal inspection, full ROM. Absent: tenderness Back exam: Present: normal inspection Neurological exam: Present: alert, CN II-XII intact Expanded Neurological exam: Present: protecting the airway Patient oriented to: Present: person, place. Absent: time Speech: Present: fluid speech Cranial nerves: EOM's Intact: Normal Motor strength exam: RUE: 4, LUE: 4, RLE: 4, LLE: 4 Eye Response: (4) open spontaneously Motor Response: (6) obeys commands Verbal Response: (4) confused conversation Psychiatric exam: Present: normal affect, normal mood Skin exam: Present: normal color Course Vital Signs 06/02/20 06/02/20 16:30 18:01 Temperature 97.3 F L Pulse Rate 89 64 Respiratory 18 16 Rate Blood Pressure 119/85 O2 Sat by Pulse 99 100 Oximetry EKG Findings - EKG Comments: EKG Findings:: Second-degree heart block, Mobitz 1 rate 64. QRS 92. QT 374. QTC 385. Left axis. Inferior Q waves. No acute ST change. Medical Decision Making - Medical Decision Making Patient reevaluated and updated. Case discussed with Dr. Wilhelm, who will admit, and Dr. Ramos. She does request nephrology consult. - Lab Data Result diagrams: 06/02/20 16:52 06/02/20 16:52 Lab Results 06/02/20 06/02/20 06/02/20 Range/Units 16:52 16:52 16:52 WBC 5.7 (3.8-10.6) k/uL RBC 4.25 L (4.30-5.90) m/uL Hgb 14.5 (13.0-17.5) gm/dL Hct 43.6 (39.0-53.0) % MCV 102.6 H (80.0-100.0) fL MCH 34.2 (25.0-35.0) pg MCHC 33.3 (31.0-37.0) g/dL RDW 14.4 (11.5-15.5) % Plt Count 232 (150-450) k/uL MPV 7.2 Neutrophils % 87 % Lymphocytes % 4 % Monocytes % 8 % Eosinophils % 1 % Basophils % 0 % Neutrophils # 5.0 (1.3-7.7) k/uL Lymphocytes # 0.3 L (1.0-4.8) k/uL Monocytes # 0.4 (0-1.0) k/uL Eosinophils # 0.0 (0-0.7) k/uL Basophils # 0.0 (0-0.2) k/uL Macrocytosis Slight PT 10.9 (9.0-12.0) sec INR 1.0 (<1.2) APTT 23.1 (22.0-30.0) sec Sodium 136 L (137-145) mmol/L Potassium 5.5 H (3.5-5.1) mmol/L Chloride 112 H (98-107) mmol/L Carbon Dioxide 8 L* (22-30) mmol/L Anion Gap 16 mmol/L BUN 146 H* (9-20) mg/dL Creatinine 3.55 H (0.66-1.25) mg/dL Est GFR (CKD-EPI)AfAm 17 (>60 ml/min/1.73 sqM) Est GFR (CKD-EPI)NonAf 15 (>60 ml/min/1.73 sqM) Glucose 127 H (74-99) mg/dL Plasma Lactic Acid Santos (0.7-2.0) mmol/L Calcium 9.2 (8.4-10.2) mg/dL Phosphorus 5.5 H (2.5-4.5) mg/dL Magnesium 2.0 (1.6-2.3) mg/dL Total Bilirubin 0.4 (0.2-1.3) mg/dL AST 23 (17-59) U/L ALT 16 (4-49) U/L Alkaline Phosphatase 92 (38-126) U/L Troponin I (0.000-0.034) ng/mL Total Protein 7.2 (6.3-8.2) g/dL Albumin 3.8 (3.5-5.0) g/dL TSH 6.020 H (0.465-4.680) mIU/L Free T4 1.11 (0.78-2.19) ng/dL Free T3 pg/mL 2.4 L (2.8-5.3) pg/ml 06/02/20 06/02/20 Range/Units 16:52 16:52 WBC (3.8-10.6) k/uL RBC (4.30-5.90) m/uL Hgb (13.0-17.5) gm/dL Hct (39.0-53.0) % MCV (80.0-100.0) fL MCH (25.0-35.0) pg MCHC (31.0-37.0) g/dL RDW (11.5-15.5) % Plt Count (150-450) k/uL MPV Neutrophils % % Lymphocytes % % Monocytes % % Eosinophils % % Basophils % % Neutrophils # (1.3-7.7) k/uL Lymphocytes # (1.0-4.8) k/uL Monocytes # (0-1.0) k/uL Eosinophils # (0-0.7) k/uL Basophils # (0-0.2) k/uL Macrocytosis PT (9.0-12.0) sec INR (<1.2) APTT (22.0-30.0) sec Sodium (137-145) mmol/L Potassium (3.5-5.1) mmol/L Chloride (98-107) mmol/L Carbon Dioxide (22-30) mmol/L Anion Gap mmol/L BUN (9-20) mg/dL Creatinine (0.66-1.25) mg/dL Est GFR (CKD-EPI)AfAm (>60 ml/min/1.73 sqM) Est GFR (CKD-EPI)NonAf (>60 ml/min/1.73 sqM) Glucose (74-99) mg/dL Plasma Lactic Acid Santos 0.8 (0.7-2.0) mmol/L Calcium (8.4-10.2) mg/dL Phosphorus (2.5-4.5) mg/dL Magnesium (1.6-2.3) mg/dL Total Bilirubin (0.2-1.3) mg/dL AST (17-59) U/L ALT (4-49) U/L Alkaline Phosphatase (38-126) U/L Troponin I <0.012 (0.000-0.034) ng/mL Total Protein (6.3-8.2) g/dL Albumin (3.5-5.0) g/dL TSH (0.465-4.680) mIU/L Free T4 (0.78-2.19) ng/dL Free T3 pg/mL (2.8-5.3) pg/ml - Radiology Data Radiology results: report reviewed (Computed tomography scan of the brain reveal s no acute process), image reviewed (X-ray shows no acute) Disposition Clinical Impression: Acute renal failure (ARF) Disposition: ADMITTED IP TO THIS [facility] Is patient prescribed a controlled substance at d/c from ED?: No Referrals: Dev Ramos MD [Primary Care Provider] - 1-2 days Decision Time: 18:18
[2020-06-02 16:56] LABS: Basophils % (A) 0 %; Eosinophils % (A) 1 %; HCT 43.6 % (39.0-53.0); HGB 14.5 gm/dL (13.0-17.5); Lymphocytes # (A) 0.3 k/uL (1.0-4.8); Lymphocytes % (A) 4 %; MCH 34.2 pg (25.0-35.0); MCHC 33.3 g/dL (31.0-37.0); MCV 102.6 fL (80.0-100.0); Macrocytosis Slight; Mean Platelet Volume 7.2; Monocytes # (A) 0.4 k/uL (0-1.0); Monocytes % (A) 8 %; Neutrophils % (A) 87 %; Platelet Count 232 k/uL (150-450); RBC 4.25 m/uL (4.30-5.90); RDW 14.4 % (11.5-15.5); WBC 5.7 k/uL (3.8-10.6)
[2020-06-02 17:08] LABS: Partial Thromboplastin Time 23.1 sec (22.0-30.0); Prothrombin Time 10.9 sec (9.0-12.0)
[2020-06-02 17:10] LABS: Albumin 3.8 g/dL (3.5-5.0); Calcium 9.2 mg/dL (8.4-10.2); Phosphorus 5.5 mg/dL (2.5-4.5); Potassium 5.5 mmol/L (3.5-5.1); Total Bilirubin 0.4 mg/dL (0.2-1.3); Total Protein 7.2 g/dL (6.3-8.2)
--- NOTE | 2020-06-02 17:25 | XR ---
EXAMINATION TYPE: XR chest 2V DATE OF EXAM: 06/02/2020 COMPARISON: NONE HISTORY: TECHNIQUE: Frontal and lateral views of the chest are obtained. FINDINGS: There is no focal air space opacity, pleural effusion, or pneumothorax seen. The cardiac silhouette size is within normal limits. The osseous structures are intact. IMPRESSION: No acute cardiopulmonary process. COPD.
[2020-06-02 17:27] LABS: T4, Free (Free Thyroxine) 1.11 ng/dL (0.78-2.19)
--- NOTE | 2020-06-02 17:28 | CT ---
EXAMINATION TYPE: CT brain wo con DATE OF EXAM: 06/02/2020 COMPARISON: None. HISTORY: Weakness CT DLP: 1129.4 mGycm Automated exposure control for dose reduction was used. FINDINGS: There is no acute intracranial image or mass or mass effect. No midline shift. There is mild cerebral atrophy with dilatation of the ventricles. There is no displaced skull fracture. No lytic or blastic process is appreciated Orbits and globes are within normal limits. Paranasal sinuses are clear. IMPRESSION: NO ACUTE INTRACRANIAL HEMORRHAGE. MILD CEREBRAL ATROPHY.
[2020-06-02] MEDS ORDERED: SODIUM CHLORIDE 0.9% 500 ML 500 ML IV STA (17:48)
[2020-06-02 18:15] LABS: Appearance,Urine Turbid (Clear); Bilirubin,Urine Negative (Negative); Blood,Urine Moderate (Negative); Budding Yeast,Urine Rare /hpf; Color,Urine Light Yellow; Glucose,Urine (UA) Negative (Negative); Ketones,Urine Negative (Negative); Leukocyte Esterase,Urine Large (Negative); Nitrite,Urine Negative (Negative); PH, Urine 5.5 (5.0-8.0); Protein,Urine 1+ (Negative); RBC,Urine 10 /hpf (0-5); Specific Gravity,Urine 1.015 (1.001-1.035); Urobilinogen,Urine <2.0 mg/dL (<2.0); WBC,Urine >182 /hpf (0-5)
[2020-06-02] MEDS ORDERED: NALOXONE 0.4 MG/ML 1 ML VIAL IV PRN (18:18)
[2020-06-02] MEDS: SODIUM CHLORIDE 0.9% 1,000 ML IV SCH (19:07)
[2020-06-03] MEDS: SODIUM CHLORIDE 0.9% 1,000 ML IV SCH (04:53)
[2020-06-03] MEDS: METOPROLOL TARTRATE 25 MG TAB PO SCH ×2 (09:09→20:37)
[2020-06-03] MEDS: CYANOCOBALAMIN 500 MCG TAB PO SCH ×2 (09:09→20:37)
[2020-06-03] MEDS: MAGNESIUM OXIDE 400 MG TAB PO SCH (09:09)
[2020-06-03] MEDS: TAMSULOSIN 0.4 MG CAP.ER.24H PO SCH (09:09)
--- NOTE | 2020-06-03 11:16 | P.HPIM ---
History of Present Illness H&P Date: 06/03/20 Chief Complaint: Weakness HISTORY OF PRESENT ILLNESS This is an 89-year-old male patient of Dr. Ramos with past medical history of paroxysmal atrial fibrillation, benign prostatic hypertrophy and history of prostate cancer, history of urinary retention requiring Kaiser catheter in the past and follows with urology on a regular basis, chronic kidney disease stage III, hypertension. Patient was hospitalized in February for acute kidney injury, bilateral hydronephrosis and was discharged to [facility] for subacute rehab. Patient's son states that he was discharged home about one month ago. Son also states the patient has been doing well and doing well with physical therapy to the point that they discontinue services. He has been walking with a walker. He is normally awake and oriented 3. For the past week patient has stopped eating but son thought he was still drinking adequate amount of water. He is also been taking protein shakes. Patient was brought into [facility] emergency center for generalized weakness, increased falls. Patient was found to have CO2 of 8, BUN 146 and creatinine 3.55. Sodium 136, potassium 5.5, chloride 112. Blood sugar 127. Phosphorus 5.5. Magnesium 2.0. Troponin negative. TSH 6.020 with a normal free T4. CBC was unremarkable. Urinalysis was turbid, blood moderate, leukoesterase large, RBC 10, Alisha BC greater than 182, WBC clumps many. Coronavirus PCR not detected. Patient was given 500 mL fluid bolus and started on IV fluids, admitted to the [facility] floor and consult with nephrology. At the time of evaluation, patient is very confused. He is very hard of hearing but even after patient was helped with his hearing aid, he continued to have confusion does not realize he is in the hospital. REVIEW OF SYSTEMS Unable to obtain due to patient's mental status SOCIAL HISTORY The patient resides with his son Anjali. He is currently using a walker for ambulation. Patient was a smoker of one pack per day for 40 years and quit greater than 35 years ago. No alcohol use. FAMILY HISTORY Father at age 82 from old age. Mother at age 82 from a coma unsure of cause of or cause of coma. Patient has 1 brother that is does not know his medical history. Patient does not have any sisters. Patient has 4 daughters and 4 sons with no major medical problems. PHYSICAL EXAMINATION Gen: This is an 89-year-old male. He is resting in bed appears to be in no acute distress. HEENT: Head is atraumatic, normocephalic. Pupils equal, round. Sclerae is anicteric. NECK: Supple. No JVD. No lymphadenopathy. No thyromegaly. LUNGS: Clear to auscultation. No wheezes or rhonchi. No intercostal retractions. HEART: Irregular rate and rhythm. No murmur. ABDOMEN: Soft. Bowel sounds are present. No masses. No tenderness. EXTREMITIES: No pedal edema. No calf tenderness. Patient complains of left knee pain with chronic enlargement and deformity noted. NEUROLOGICAL: Patient is awake, alert and oriented to person. Cranial nerves 2 through 12 are grossly intact. ASSESSMENT AND PLAN 1. Acute kidney injury. 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 2. Metabolic acidosis secondary to renal failure. Patient's been started on bicarb drip. 3. Hyperkalemia secondary to renal failure. Repeat blood work. 4. Paroxysmal atrial fibrillation. Continue flecainide 50 mg twice daily, Lopressor 25 mg twice daily. Patient is not on anticoagulation due to frequent falls. 5. Benign prostatic hypertrophy and history of prostate cancer, monitor for urinary retention. Continue Flomax 0.4 mg daily 6. Chronic kidney disease stage III. 7. Hypertension. Continue Lopressor and flecainide. Patient will be admitted to the hospital for a minimum of 2 night stay. DISCHARGE PLAN Most likely subacute rehab on Sunday. PT and OT added. Impression and plan of care have been directed as dictated by the signing physician. Tena Silva nurse practitioner acting as scribe for signing physician. Past Medical History Past Medical History: Atrial Fibrillation, Cancer, Hypertension, Prostate Disorder, Renal Disease Additional Past Medical History / Comment(s): Prosate cancer with radiation, kidney stones passed on his own and surgically removed, UTIs, chronic low back pain, occasional sinus problems. [place] AND [place]. History of Any Multi-Drug Resistant Organisms: MRSA Date of last positivie culture/infection: 2017 MDRO Source:: urine? family/pt unsure Past Surgical History: Appendectomy, Hernia Repair, Orthopedic Surgery Additional Past Surgical History / Comment(s): Lithotripsy, hiatal hernia repair, L knee open surgery to "clean it out", colonoscopy, circumcism later in life d/t UTIs. Past Anesthesia/Blood Transfusion Reactions: No Reported Reaction Past Psychological History: No Psychological Hx Reported Additional Psychological History / Comment(s): Pt resides with his son. He uses a cane to ambulate. He no longer drives, his son takes him to appts. Son states that he, himself was recently hospitalized for a lengthy time and when he got back home, pt's meds were "screwed up". Smoking Status: Never smoker Past Alcohol Use History: None Reported Additional Past Alcohol Use History / Comment(s): Patient was a smoker one pack per day for 40 years and quit 35 years ago. He denies any alcohol use. Patient lives with his son. He uses a cane for ambulation. He denies any recent falls. Past Drug Use History: None Reported - Past Family History Father Family Medical History: Hypertension Additional Family Medical History / Comment(s): Father at age 82 from old age. Mother Additional Family Medical History / Comment(s): Mother at age 82 and was in a coma at the time. Patient is unsure of cause of her or causative coma. Brother(s) Additional Family Medical History / Comment(s): Patient has 1 brother that is . He is not know any of his medical history. Patient does not have any sisters. Patient has 4 daughters and 4 sons with no major medical problems. Medications and Allergies Home Medications Medication Instructions Recorded Confirmed Type Cyanocobalamin [Vitamin B-12] 500 mcg PO BID 05/01/19 06/02/20 History Flecainide Acetate 50 mg PO BID 05/01/19 06/02/20 History Metoprolol Tartrate [Lopressor] 25 mg PO BID 05/01/19 06/02/20 History Tamsulosin [Flomax] 0.4 mg PO DAILY 05/01/19 06/02/20 History Magnesium Oxide 420mg 420 mg PO DAILY 03/12/20 06/02/20 History Acetaminophen Tab [Tylenol] 650 mg PO Q6HR PRN 06/02/20 06/02/20 History Cranberry(Unknown Dose) 1 tab PO DAILY 06/02/20 06/02/20 History Allergies Allergy/AdvReac Type Severity Reaction Status Date / Time furosemide [From Lasix] Allergy Unknown Verified 06/02/20 21:13 goserelin Allergy Unknown Verified 06/02/20 21:13 Physical Exam Vitals: Vital Signs Temp Pulse Pulse Resp BP BP Pulse Ox 06/03/20 04:05 98.1 F 97 16 143/65 100 06/02/20 23:10 97.9 F 86 16 126/57 96 06/02/20 19:04 97.6 F 82 16 127/70 97 06/02/20 18:01 64 16 119/85 100 06/02/20 16:30 97.3 F L 89 18 99 Intake and Output 06/02/20 06/03/20 06/03/20 22:59 06:59 14:59 Other: # Voids 2 2 # Bowel Movements 0 0 Weight 65.317 kg Results CBC & Chem 7: 06/02/20 16:52 06/02/20 16:52 Labs: Abnormal Lab Results - Last 24 Hours (Table) 06/02/20 06/02/20 06/02/20 Range/Units 16:52 16:52 17:56 RBC 4.25 L (4.30-5.90) m/uL MCV 102.6 H (80.0-100.0) fL Lymphocytes # 0.3 L (1.0-4.8) k/uL Sodium 136 L (137-145) mmol/L Potassium 5.5 H (3.5-5.1) mmol/L Chloride 112 H (98-107) mmol/L Carbon Dioxide 8 L* (22-30) mmol/L BUN 146 H* (9-20) mg/dL Creatinine 3.55 H (0.66-1.25) mg/dL Glucose 127 H (74-99) mg/dL Phosphorus 5.5 H (2.5-4.5) mg/dL TSH 6.020 H (0.465-4.680) mIU/L Free T3 pg/mL 2.4 L (2.8-5.3) pg/ml Urine Protein 1+ H (Negative) Urine Blood Moderate H (Negative) Ur Leukocyte Esterase Large H (Negative) Urine RBC 10 H (0-5) /hpf Urine WBC >182 H (0-5) /hpf Urine WBC Clumps Many H (None) /hpf Urine Yeast (Budding) Rare H (None) /hpf Microbiology - Last 24 Hours (Table) 06/02/20 17:56 Urine Culture - Preliminary Urine,Voided Thrombosis Risk Factor Assmnt - Choose All That Apply Any of the Below Risk Factors Present?: Yes Each Risk Factor Represents 2 Points: Patient confined to bed Each Risk Factor Represents 3 Points: Age 75 years or older Thrombosis Risk Factor Assessment Total Risk Factor Score: 5 Thrombosis Risk Factor Assessment Level: High Risk
--- NOTE | 2020-06-03 11:24 | US ---
EXAMINATION TYPE: US kidneys/renal and bladder DATE OF EXAM: 06/03/2020 COMPARISON: US 03/12/2020, CT scan 03/18/2020 CLINICAL HISTORY: SAI. Exam done portable. EXAM MEASUREMENTS: Right Kidney: 11.5 x 5.6 x 6.3 cm Left Kidney: 12.2 x 7.0 x 7.6 cm Right Kidney: severe hydronephrosis, 3.0cm superior cyst, 1.8cm inferior cyst Left Kidney: severe hydronephrosis Bladder: wnl Bilateral Jets seen: no Cortical echotexture is increased, renal cortex is thinned bilaterally. The urinary bladder is anecho ic. IMPRESSION: Changes are chronic within the kidneys, there is atrophy, hydronephrosis, associated cystic disease
[2020-06-03] MEDS: FLECAINIDE 50 MG TAB PO SCH ×2 (11:29→20:37)
[2020-06-03] MEDS: SODIUM BICARBONATE TAB 650 MG TAB PO SCH ×3 (11:30→20:37)
[2020-06-03] MEDS: DEXTROSE 5% IN WATER 1,000 ML with SODIUM BICARB (1 MEQ/ML) 150 ML IV SCH ×2 (11:34→20:38)
[2020-06-03 12:28] LABS: African American GFR (CKD) 20.7 (60.0-200.0); Calcium 8.7 mg/dL (8.7-10.3); Carbon Dioxide <10.0 mmol/L (21.6-31.8); Chloride 114 mmol/L (96-109); Glucose 104 mg/dL (70-110); Non-African American GFR(CKD) 17.9 (60.0-200.0); Potassium 5.6 mmol/L (3.5-5.5); Sodium 139 mmol/L (135-145)
--- NOTE | 2020-06-03 15:52 | CONS ---
CONSULTATION REASON FOR CONSULT: Renal failure. HISTORY OF PRESENT ILLNESS: Patient is an 89-year-old male with a history of BPH, prostatic cancer with history of previous [facility] catheter placement, currently not with a [facility] catheter. The patient was admitted with complaints of left knee pain. His serum creatinine was 3.5 with a BUN of 146 on admission. Previous creatinine was 1.8 and 1.9 as of March of 2020 and mostly around 2 in 2019. The patient was severely acidotic with a CO2 of 8 and less than 10. His blood pressure has not been significantly low. He denied any significant diarrhea prior to admission. PCR for coronavirus was negative. PAST MEDICAL HISTORY: Chronic atrial fibrillation, prostatic cancer, hypertension, BPH, history of kidney stones, UTI, chronic back pain. PAST SURGICAL HISTORY: Appendectomy, hernia repair, lithotripsy, left knee surgery, circumcision. SOCIAL HISTORY: Negative for smoking, drug abuse or alcohol abuse. MEDICATIONS: Medications prior to admission included Lopressor, Flomax, magnesium, Tylenol, flecainide. ALLERGIES: ALLERGIES include LASIX. PHYSICAL EXAMINATION: Patient is currently comfortable. He is not in any acute distress but complaining of pain in his left knee. EXAMINATION OF THE HEART: S1 and S2. EXAMINATION OF LUNGS: Bilateral breath sounds are heard. ABDOMEN: Soft, non-tender. Examination of lower extremities shows no significant edema on the lower extremities. Blood pressure was 135/74, heart rate 85 per minute. TRAUMA REGISTRAR exam grossly intact. LABS: Sodium 139, potassium 5.6, chloride 114, CO2 less than 10, BUN 138, serum creatinine 3.0, down from 3.5. UA shows 1+ protein, moderate blood noted, WBCs more than 182, hemoglobin 14.5 g/dL. ASSESSMENT: 1. Acute kidney injury, most likely prerenal. Need to rule out obstruction. A post- void bladder scan will be checked, as patient has a previous history of BPH and urine retention. At the same time, patient appears volume-depleted. I will continue with the IV fluids but change to IV bicarb, given the significant acidosis. 2. Hyperkalemia associated with acute kidney injury, severe acidosis. Expect improvement with improving renal function and acidosis. 3. Pyuria; rule out urinary tract infection. 4. Chronic kidney disease with previous creatinine at 1.8 to 1.9 mg/dL with creatinine mostly around 2 for most of 2019. NKF stage IV secondary to nephrosclerosis. 5. Severe metabolic acidosis, anion gap, associated with SAI, no diarrhea per history.No lactic acidosis PLAN: Change to IV bicarb. Repeat labs in a.m. Check post-void scan. Rule out urine retention. Avoid nephrotoxic agents. MMODL / IJN: [id number] / MTDD
[2020-06-03] MEDS: HEPARIN SODIUM,PORCINE 5,000 UNIT/ML 1 ML VIAL SQ SCH (20:38)
[2020-06-04] MEDS: ACETAMINOPHEN TAB 325 MG TAB PO PRN ×2 (02:09→17:31)
[2020-06-04 07:08] LABS: African American GFR (CKD) 22 (>60 ml/min/1.73 sqM); Anion Gap 11 mmol/L; Calcium 8.5 mg/dL (8.4-10.2); Carbon Dioxide 15 mmol/L (22-30); Chloride 111 mmol/L (98-107); Glucose 151 mg/dL (74-99); Non-African American GFR(CKD) 19 (>60 ml/min/1.73 sqM); Sodium 137 mmol/L (137-145)
[2020-06-04 07:43] LABS: Blood Urea Nitrogen 103 mg/dL (9-20)
[2020-06-04] MEDS: METOPROLOL TARTRATE 25 MG TAB PO SCH ×2 (08:46→21:28)
[2020-06-04] MEDS: FLECAINIDE 50 MG TAB PO SCH ×2 (08:46→21:28)
[2020-06-04] MEDS: PANTOPRAZOLE 40 MG TABLET PO SCH (08:46)
[2020-06-04] MEDS: MAGNESIUM OXIDE 400 MG TAB PO SCH (08:46)
[2020-06-04] MEDS: HEPARIN SODIUM,PORCINE 5,000 UNIT/ML 1 ML VIAL SQ SCH ×2 (08:46→21:28)
[2020-06-04] MEDS: TAMSULOSIN 0.4 MG CAP.ER.24H PO SCH (08:46)
[2020-06-04] MEDS: CYANOCOBALAMIN 500 MCG TAB PO SCH ×2 (08:46→21:28)
[2020-06-04] MEDS: SODIUM BICARBONATE TAB 650 MG TAB PO SCH ×3 (08:47→21:28)
--- NOTE | 2020-06-04 15:31 | P.GSCN ---
History of Present Illness Consult date: 06/04/20 History of present illness: The patient is an 89 yo male with a history of prostate cancer treated with ebrt and lhrh in [place] several years ago. He was followed by until his correction. He has had problems with incomplete, bladder emptying and hydronephrosis, bilateral. He was admitted with weakness and change in mental status. He is found to have a bun of 146 and a cr of 3.5 He had an us identifying bilateral hydronephrosis. This hydronephrosis is chronic. His last psa was 0.7 in 02/2020. His pvr this hospitaliztion hve been around 150 ml. A catheters placed and his urine is grossly infected. In discussing the problem with the patient he states that he voided frequently as well as having incontinence. He feels better with the indwelling catheter. He had urine retention in February with a creatinine of 4. With some hydration his creat inine is down to 2.8 today. His [place] 100. In reviewing the x-rays the hydronephrosis is apparently chronic. Review of Systems ROS unobtainable: due to mental status Past Medical History Past Medical History: Atrial Fibrillation, Cancer, Hypertension, Prostate Disorder, Renal Disease Additional Past Medical History / Comment(s): Prosate cancer with radiation, kidney stones passed on his own and surgically removed, UTIs, chronic low back pain, occasional sinus problems. [place]. History of Any Multi-Drug Resistant Organisms: MRSA Year Discovered:: 2018 MDRO Source:: urine? family/pt unsure Past Surgical History: Appendectomy, Hernia Repair, Orthopedic Surgery Additional Past Surgical History / Comment(s): Lithotripsy, hiatal hernia repair, L knee open surgery to "clean it out", colonoscopy, circumcism later in life d/t UTIs. Past Anesthesia/Blood Transfusion Reactions: No Reported Reaction Past Psychological History: No Psychological Hx Reported Additional Psychological History / Comment(s): Pt resides with his son. He uses a cane to ambulate. He no longer drives, his son takes him to appts. Son states that he, himself was recently hospitalized for a lengthy time and when he got back home, pt's meds were "screwed up". Smoking Status: Never smoker Past Alcohol Use History: None Reported Additional Past Alcohol Use History / Comment(s): Patient was a smoker one pack per day for 40 years and quit 35 years ago. He denies any alcohol use. Patient lives with his son. He uses a cane for ambulation. He denies any recent falls. Past Drug Use History: None Reported - Past Family History Father Family Medical History: Hypertension Additional Family Medical History / Comment(s): Father at age 82 from old age. Mother Additional Family Medical History / Comment(s): Mother at age 82 and was in a coma at the time. Patient is unsure of cause of her or causative coma. Brother(s) Additional Family Medical History / Comment(s): Patient has 1 brother that is . He is not know any of his medical history. Patient does not have any sisters. Patient has 4 daughters and 4 sons with no major medical problems. Medications and Allergies Home Medications Medication Instructions Recorded Confirmed Type Cyanocobalamin [Vitamin B-12] 500 mcg PO BID 05/01/19 06/02/20 History Flecainide Acetate 50 mg PO BID 05/01/19 06/02/20 History Metoprolol Tartrate [Lopressor] 25 mg PO BID 05/01/19 06/02/20 History Tamsulosin [Flomax] 0.4 mg PO DAILY 05/01/19 06/02/20 History Magnesium Oxide 420mg 420 mg PO DAILY 03/12/20 06/02/20 History Acetaminophen Tab [Tylenol] 650 mg PO Q6HR PRN 06/02/20 06/02/20 History Cranberry(Unknown Dose) 1 tab PO DAILY 06/02/20 06/02/20 History Allergies Allergy/AdvReac Type Severity Reaction Status Date / Time furosemide [From Lasix] Allergy Unknown Verified 06/02/20 21:13 goserelin Allergy Unknown Verified 06/02/20 21:13 Surgical - Exam Vital Signs Temp Pulse Resp Pulse Ox 97.3 F L 89 18 99 06/02/20 16:30 06/02/20 16:30 06/02/20 16:30 06/02/20 16:30 - General no distress, cachectic - Eyes PERRL - ENT decreased hearing - Respiratory normal expansion, normal respiratory effort - Cardiovascular Rhythm: regular - Abdomen Abdomen: soft, non tender - Genitourinary Indwelling catheter with grossly infected urine - Integumentary no rash, no growths - Neurologic normal sensation - Psychiatric oriented to person, speech is normal Results - Labs 06/02/20 16:52 06/04/20 05:25 Abnormal Lab Results - Last 24 Hours (Table) 06/03/20 06/04/20 Range/Units 06:58 05:25 Potassium 5.6 H (3.5-5.5) mmol/L Chloride 114 H 111 H (96-109) mmol/L Carbon Dioxide <10.0 L* 15 L (21.6-31.8) mmol/L BUN 138.0 H* 103 H* (9.0-27.0) mg/dL Creatinine 3.0 H 2.84 H (0.6-1.5) mg/dL Est GFR (CKD-EPI)AfAm 20.7 L (60.0-200.0) Est GFR (CKD-EPI)NonAf 17.9 L (60.0-200.0) BUN/Creatinine Ratio 46.00 H (12.00-20.00) Ratio Glucose 151 H (74-99) mg/dL Microbiology - Last 24 Hours (Table) 06/02/20 17:56 Urine Culture - Final Urine,Voided Diabetes panel 06/03/20 06/04/20 Range/Units 06:58 05:25 Sodium 139 137 (135-145) mmol/L Potassium 5.6 H 5.0 (3.5-5.5) mmol/L Chloride 114 H 111 H (96-109) mmol/L Carbon Dioxide <10.0 L* 15 L (21.6-31.8) mmol/L BUN 138.0 H* 103 H* (9.0-27.0) mg/dL Creatinine 3.0 H 2.84 H (0.6-1.5) mg/dL Glucose 104 151 H (70-110) mg/dL Calcium 8.7 8.5 (8.7-10.3) mg/dL Calcium panel 06/03/20 06/04/20 Range/Units 06:58 05:25 Calcium 8.7 8.5 (8.7-10.3) mg/dL Pituitary panel 06/03/20 06/04/20 Range/Units 06:58 05:25 Sodium 139 137 (135-145) mmol/L Potassium 5.6 H 5.0 (3.5-5.5) mmol/L Chloride 114 H 111 H (96-109) mmol/L Carbon Dioxide <10.0 L* 15 L (21.6-31.8) mmol/L BUN 138.0 H* 103 H* (9.0-27.0) mg/dL Creatinine 3.0 H 2.84 H (0.6-1.5) mg/dL Glucose 104 151 H (70-110) mg/dL Calcium 8.7 8.5 (8.7-10.3) mg/dL Adrenal panel 06/03/20 06/04/20 Range/Units 06:58 05:25 Sodium 139 137 (135-145) mmol/L Potassium 5.6 H 5.0 (3.5-5.5) mmol/L Chloride 114 H 111 H (96-109) mmol/L Carbon Dioxide <10.0 L* 15 L (21.6-31.8) mmol/L BUN 138.0 H* 103 H* (9.0-27.0) mg/dL Creatinine 3.0 H 2.84 H (0.6-1.5) mg/dL Glucose 104 151 H (70-110) mg/dL Calcium 8.7 8.5 (8.7-10.3) mg/dL - Imaging US - kidney/bladder: report reviewed, image reviewed Assessment and Plan Assessment: Impression: Urinary tract infection. The bilateral hydronephrosis chronic. Prostate cancer treated with radiation therapy. Incomplete bladder emptying. Multiple medical illnesses. Recommendations: Although the urine residual is not large is a possibility that he has a thick noncompliant bladder leading to the hydronephrosis which is chronic. Whether there is any supravesical obstruction due to the radiation is indeterminate. From a urologic standpoint as long as he improves I leave indwelling catheter as he seems to feel better with that. Depending on how he responds as to whether we will do any further evaluation of the upper urinary tract. Time with Patient: Greater than 30
--- NOTE | 2020-06-04 15:41 | P.PN ---
Subjective Progress Note Date: 06/04/20 HISTORY OF PRESENT ILLNESS This is an 89-year-old male patient of Dr. Ramos with past medical history of paroxysmal atrial fibrillation, benign prostatic hypertrophy and hi story of prostate cancer, history of urinary retention requiring Kaiser catheter in the past and follows with urology on a regular basis, chronic kidney disease stage III, hypertension. Patient was hospitalized in February for acute kidney injury, bilateral hydronephrosis and was discharged to [facility] for subacute rehab. Patient's son states that he was discharged home about one month ago. Son also states the patient has been doing well and doing well with physical therapy to the point that they discontinue services. He has been walking with a walker. He is normally awake and oriented 3. For the past week patient has stopped eating but son thought he was still drinking adequate amount of water. He is also been taking protein shakes. Patient was brought into [facility] emergency center for generalized weakness, increased falls. Patient was found to have CO2 of 8, BUN 146 and creatinine 3.55. Sodium 136, potassium 5.5, chloride 112. Blood sugar 127. Phosphorus 5.5. Magnesium 2.0. Troponin negative. TSH 6.020 with a normal free T4. CBC was unremarkable. Urinalysis was turbid, blood moderate, leukoesterase large, RBC 10, Alisha BC greater than 182, WBC clumps many. Coronavirus PCR not detected. Patient was given 500 mL fluid bolus and started on IV fluids, [facility] and consult with nephrology. At the time of evaluation, patient is very confused. He is very hard of hearing but even after patient was helped with his hearing aid, he continued to have confusion does not realize he is in the hospital. 06/04: Patient continues to have confusion and is extremely hard of hearing. No new complaints. He has been afebrile, heart rate 99, blood pressure 106/61, pulse ox 99% on room air. Repeat blood work reveals sodium 137, potassium 5, chloride 111, CO2 15, BUN 103 and creatinine 2.84. Urine culture is showing skin and genital vladimir. Antibiotics will be discontinued as UTI ruled out. Renal ultrasound reveals chronic changes within the kidneys as well as atrophy, hydronephrosis with severe bilaterally along with cystic disease. Consult has been added for urology and patient has been seen by Dr. Howard and he has d etermined that hydronephrosis is chronic. Nephrology is following and patient is continued on IV bicarb, check post void residual. Post void residuals have been under 200. Discharge plan is for [facility] for subacute rehab and Covid 19 testing ordered per request of [facility]. REVIEW OF SYSTEMS Unable to obtain due to patient's mental status PHYSICAL EXAMINATION Gen: This is an 89-year-old male. He is resting in bed appears to be in no acute distress. HEENT: Head is atraumatic, normocephalic. Pupils equal, round. Sclerae is anicteric. NECK: Supple. No JVD. No lymphadenopathy. No thyromegaly. LUNGS: Clear to auscultation. No wheezes or rhonchi. No intercostal retractions. HEART: Irregular rate and rhythm. No murmur. ABDOMEN: Soft. Bowel sounds are present. No masses. No tenderness. EXTREMITIES: No pedal edema. No calf tenderness. Patient complains of left knee pain with chronic enlargement and deformity noted. NEUROLOGICAL: Patient is awake, alert and oriented to person. Cranial nerves 2 through 12 are grossly intact. ASSESSMENT AND PLAN 1. Acute kidney injury. Consult with nephrology appreciated, continue bicarb drip at 150 MLS per hour, repeat blood work in the morning, avoid nephrotoxic agents, renal diet. 2. Metabolic acidosis secondary to renal failure. Patient's been started on bicarb drip. 3. Hyperkalemia secondary to renal failure. Repeat blood work. 4. Paroxysmal atrial fibrillation. Continue flecainide 50 mg twice daily, Lopressor 25 mg twice daily. Patient is not on anticoagulation due to frequent falls. 5. Benign prostatic hypertrophy and history of prostate cancer, monitor for urinary retention. Continue Flomax 0.4 mg daily 6. Chronic kidney disease stage III. 7. Hypertension. Continue Lopressor and flecainide. 8. DVT prophylaxis. Heparin subcu. 9. GI prophylaxis. Protonix 10. Chronic bilateral hydronephrosis. DISCHARGE PLAN [facility] for subacute rehab on Sunday. PT and OT following. COVID19 testing ordered. Impression and plan of care have been directed as dictated by the signing physician. Tena Silva nurse practitioner acting as scribe for signing physician. Objective - Vital Signs Vital signs: Vital Signs Temp 99.2 F 06/04/20 04:56 Pulse 99 03/12/21 04:56 Resp 16 06/04/20 04:56 BP 106/61 06/04/20 04:56 Pulse Ox 99 06/04/20 04:56 Intake & Output 06/03/20 06/04/20 06/04/20 18:59 06:59 18:59 Intake Total 1000 Balance 1000 Intake: Oral 1000 Other: Voiding Method Urinal Urinal Diaper Diaper # Voids 4 # Bowel Movements 0 1 - Labs CBC & Chem 7: 06/02/20 16:52 06/04/20 05:25 Labs: Abnormal Lab Results - Last 24 Hours (Table) 06/03/20 06/04/20 Range/Units 06:58 05:25 Potassium 5.6 H (3.5-5.5) mmol/L Chloride 114 H 111 H (96-109) mmol/L Carbon Dioxide <10.0 L* 15 L (21.6-31.8) mmol/L BUN 138.0 H* 103 H* (9.0-27.0) mg/dL Creatinine 3.0 H 2.84 H (0.6-1.5) mg/dL Est GFR (CKD-EPI)AfAm 20.7 L (60.0-200.0) Est GFR (CKD-EPI)NonAf 17.9 L (60.0-200.0) BUN/Creatinine Ratio 46.00 H (12.00-20.00) Ratio Glucose 151 H (74-99) mg/dL Microbiology - Last 24 Hours (Table) 06/02/20 17:56 Urine Culture - Final Urine,Voided
[2020-06-04] MEDS: DEXTROSE 5% IN WATER 1,000 ML with SODIUM BICARB (1 MEQ/ML) 150 ML IV SCH (16:06)
--- NOTE | 2020-06-04 18:11 | PN ---
PROGRESS NOTE Patient is seen for followup for acute kidney injury, severe metabolic acidosis. He has been started on a bicarb drip. Renal function has improved, with creatinine down to 2.8 from 3.5 on initial admission. Overall, patient states he is feeling better. No diarrhea, nausea or vomiting, although oral intake is on the lower side. PHYSICAL EXAMINATION: On examination today, blood pressure 105/57, heart rate 89 per minute. Patient is afebrile. EXAMINATION OF THE HEART: S1 and S2. EXAMINATION OF LUNGS: Bilateral breath sounds are heard. ABDOMEN: Soft, non-tender. Examination of lower extremities shows no evidence of edema. FISCAL ASSISTANT exam is grossly intact. LABS: Sodium 137, potassium 5.0, chloride 111. CO2 is 15, BUN 103, serum creatinine 2.8, hemoglobin 14.5 g/dL. ASSESSMENT: 1. Acute kidney injury associated with intravascular volume depletion, mostly prerenal. A Kaiser catheter was placed, as patient has history of bilateral hydronephrosis which is chronic. He has had chronic dribbling with history of prostatic cancer. His post-void residual was not elevated, but patient is currently being followed by Urology. Continue with IV fluids. Encourage increased oral intake. nephrotoxic agents on board. Blood pressure is on the lower side. Patient is maintained on Lopressor, for which parameters were added yesterday. 2. Severe metabolic acidosis associated with renal failure as well as obstructive uropathy, currently on bicarb drip and improving. 3. Hyperkalemia associated with acute kidney injury, metabolic acidosis, now improving. 4. Chronic bilateral hydronephrosis with history of prostate cancer. 5. Pyuria. Urine culture is pending. 6. Chronic kidney disease, stage 4, with previous creatinine at 1.7 to 1.9 mg/dL all the way back to 2017. Etiology is nephrosclerosis and chronic obstructive uropathy. PLAN: Continue bicarb for at least one more day. Repeat labs in a.m. Continue with oral sodium bicarb as well for now. Continue with Flomax. MMODL / IJN: [id number] /
[2020-06-05] MEDS: DEXTROSE 5% IN WATER 1,000 ML with SODIUM BICARB (1 MEQ/ML) 150 ML IV SCH ×2 (04:58→16:04)
[2020-06-05 08:04] LABS: HCT 23.7 % (39.0-53.0); MCH 32.2 pg (25.0-35.0); MCHC 31.9 g/dL (31.0-37.0); MCV 100.8 fL (80.0-100.0); Macrocytosis Slight; Mean Platelet Volume 6.9; Platelet Count 277 k/uL (150-450); RBC 2.35 m/uL (4.30-5.90); RDW 14.8 % (11.5-15.5); WBC 6.2 k/uL (3.8-10.6)
[2020-06-05 08:09] LABS: HGB 7.6 gm/dL (13.0-17.5)
[2020-06-05 08:11] LABS: African American GFR (CKD) 23 (>60 ml/min/1.73 sqM); Anion Gap 7 mmol/L; Blood Urea Nitrogen 80 mg/dL (9-20); Calcium 8.1 mg/dL (8.4-10.2); Carbon Dioxide 25 mmol/L (22-30); Chloride 105 mmol/L (98-107); Glucose 107 mg/dL (74-99); Non-African American GFR(CKD) 20 (>60 ml/min/1.73 sqM); Potassium 4.1 mmol/L (3.5-5.1); Sodium 137 mmol/L (137-145)
[2020-06-05] MEDS: PANTOPRAZOLE 40 MG TABLET PO SCH (09:25)
[2020-06-05] MEDS: HEPARIN SODIUM,PORCINE 5,000 UNIT/ML 1 ML VIAL SQ SCH ×2 (09:25→21:31)
[2020-06-05] MEDS: MAGNESIUM OXIDE 400 MG TAB PO SCH (09:25)
[2020-06-05] MEDS: TAMSULOSIN 0.4 MG CAP.ER.24H PO SCH (09:25)
[2020-06-05] MEDS: SODIUM BICARBONATE TAB 650 MG TAB PO SCH ×3 (09:25→21:31)
[2020-06-05] MEDS: FLECAINIDE 50 MG TAB PO SCH ×2 (09:25→21:31)
[2020-06-05] MEDS: METOPROLOL TARTRATE 25 MG TAB PO SCH ×2 (09:25→21:31)
[2020-06-05] MEDS: CYANOCOBALAMIN 500 MCG TAB PO SCH ×2 (09:25→21:31)
--- NOTE | 2020-06-05 13:03 | P.PN ---
Subjective Progress Note Date: 06/05/20 Principal diagnosis: Is a 89-year-old male seen in consultation because of acute kidney injury from low intake. On IV fluids is acute kidney injury is improved, he had also severe acidosis. His bicarb was less than 10 gap was not calculated. Subsequently has improved with bicarb of 25 as of this morning and a gap is 7 He denies any diarrhea but in the past before admission he might have had diarrhea. Not sure of this. He says he is eating well the nurses confirm this no nausea vomiting. No abdominal pain he feels much better. Vital signs are stable blood pressure in the 102-115, and A Kaiser catheter was inserted yesterday he 1805 mL urine output documented the last shift. Workup has shown a negative urine culture although urinalysis suggestive of UTI. Was not on any antibiotics at the time of admission and the urine culture being obtained he was off of any antibiotics. Objective - Vital Signs Vital signs: Vital Signs Temp 98.5 F 06/05/20 11:58 Pulse 63 06/05/20 11:58 Resp 16 06/05/20 11:58 BP 112/52 06/05/20 11:58 Pulse Ox 97 06/05/20 11:58 Intake & Output 06/04/20 06/05/20 06/05/20 18:59 06:59 18:59 Intake Total 950 Output Total 905 900 Balance 45 -900 Intake: Oral 950 Output: Urine 750 900 Uretheral (Kaiser) 900 Post Void Residual 155 Other: Voiding Method Urinal Indwelling Catheter Diaper # Voids 1 # Bowel Movements 1 On examination is awake alert seems to be oriented A chin exam no JVP neck is supple no facial asymmetry Lungs clear to auscultation good air entry bilaterally Heart sounds are unremarkable for any murmur rub gallop Abdomen soft nontender Extremity exam was no edema Neurologically awake alert oriented - Labs CBC & Chem 7: 06/05/20 07:29 06/05/20 07:29 Labs: Abnormal Lab Results - Last 24 Hours (Table) 06/05/20 06/05/20 Range/Units 07:29 07:29 RBC 2.35 L (4.30-5.90) m/uL Hgb 7.6 L D (13.0-17.5) gm/dL Hct 23.7 L (39.0-53.0) % MCV 100.8 H (80.0-100.0) fL BUN 80 H (9-20) mg/dL Creatinine 2.74 H (0.66-1.25) mg/dL Glucose 107 H (74-99) mg/dL Calcium 8.1 L (8.4-10.2) mg/dL Assessment and Plan Assessment: Impression 1. Acute kidney injury from low intake improved with IV fluids, also might have been an element of obstruction at the outlet as he had a only catheter placed and supposedly had urinary retention 2. Severe gap and non-gap acidosis resolved etiology is acute kidney injury possibly also from diarrhea 3. Chronic kidney disease stage III secondary to nephrosclerosis Baseline creatinine is 1.9 to as of 03/19/2020. 4. History of neurogenic bladder has a Kaiser catheter indwelling, Recommendation 1. Discontinue IV fluid with bicarbonate. We will watch his bicarbonate. 2. Discontinue renal restriction to allow him to eat better 3. We will repeat labs tomorrow
--- NOTE | 2020-06-05 15:45 | P.PN ---
Subjective Progress Note Date: 06/05/20 HISTORY OF PRESENT ILLNESS This is an 89-year-old male patient of Dr. Ramos with past medical history of paroxysmal atrial fibrillation, benign prostatic hypertrophy and his tory of prostate cancer, history of urinary retention requiring Garza catheter in the past and follows with urology on a regular basis, chronic kidney disease stage III, hypertension. Patient was hospitalized in February for acute kidney injury, bilateral hydronephrosis and was discharged to [facility] for subacute rehab. Patient's son states that he was discharged home about one month ago. Son also states the patient has been doing well and doing well with physical therapy to the point that they discontinue services. He has been walking with a walker. He is normally awake and oriented 3. For the past week patient has stopped eating but son thought he was still drinking adequate amount of water. He is also been taking protein shakes. Patient was brought into [facility] emergency center for generalized weakness, increased falls. Patient was found to have CO2 of 8, BUN 146 and creatinine 3.55. Sodium 136, potassium 5.5, chloride 112. Blood sugar 127. Phosphorus 5.5. Magnesium 2.0. Troponin negative. TSH 6.020 with a normal free T4. CBC was unremarkable. Urinalysis was turbid, blood moderate, leukoesterase large, RBC 10, Alisha BC greater than 182, WBC clumps many. Coronavirus PCR not detected. Patient was given 500 mL fluid bolus and started on IV fluids, admitted to the [facility] floor and consult with nephrology. At the time of evaluation, patient is very confused. He is very hard of hearing but even after patient was helped with his hearing aid, he continued to have confusion does not realize he is in the hospital. 06/04: Patient continues to have confusion and is extremely hard of hearing. No new complaints. He has been afebrile, heart rate 99, blood pressure 106/61, pulse ox 99% on room air. Repeat blood work reveals sodium 137, potassium 5, chloride 111, CO2 15, BUN 103 and creatinine 2.84. Urine culture is showing skin and genital vladimir. Antibiotics will be discontinued as UTI ruled out. Renal ultrasound reveals chronic changes within the kidneys as well as atrophy, hydronephrosis with severe bilaterally along with cystic disease. Consult has been added for urology and patient has been seen by Dr. Howard and he has de termined that hydronephrosis is chronic. Nephrology is following and patient is continued on IV bicarb, check post void residual. Post void residuals have been under 200. Discharge plan is for [facility] for subacute rehab and Covid 19 testing ordered per request of [facility]. 06/05 patient examined at bedside. Patient is extremely hard of hearing and is unable to communicate much. But he denies any chest pain shortness of breath or difficulty urinating. He apparently patient had afoly cath yesterday with 1800 mL urine output remained last shift. Patient was evaluated by nephrology and urology and if it appears patient's hydronephrosis is chronic but patient might have a thick noncompliant bladder leading to the hydronephrosis. Patient does have history of prostate cancer for which he got radiation which could also lead to suppress the cycle obstruction. Urology thus recommending repeat the Garza catheter until discharge. Patient's BUN improved to 80 and creatinine is improved to 2.74 calcium is 8.1 glucose 107. ROS Constitutional: Denies chills, Denies fever, Denies lethargy, Denies malaise, Denies poor appetite, Denies weakness, Denies weight loss Eyes: denies decreased vision, denies diplopia, denies discharge, denies pain Ears: decreased hearing Ears, nose, mouth and throat: Denies dental pain, Denies headache, Denies nasal discharge, Denies nose pain Cardiovascular: Denies chest pain, Denies decreased exercise tolerance, Denies edema, Denies high blood pressure, Denies irregular heart beat, Denies palpitations, Denies paroxysmal nocturnal dyspnea, Denies rapid heart beat, Denies shortness of breath Respiratory: Denies congestion, Denies cough, Denies cough with sputum, Denies dyspnea, Denies home oxygen, Denies wheezing Gastrointestinal: Denies abdominal pain, Denies change in bowel habits, Denies coffee ground emesis, Denies early satiety, Denies excessive gas, Denies heartburn, Denies hematemesis, Denies hematochezia, Denies loss of appetite, Denies nausea, Denies vomiting Genitourinary: Denies dysuria, Denies flank pain, Denies kidney stones, Denies menorrhagia, Denies urgency, Denies urinary frequency Musculoskeletal: Denies gait dysfunction, Denies limitation of motion, Denies morning stiffness, Denies muscle cramps Neurological: Denies balance difficulties, Denies change in speech, Denies double vision, Denies gait dysfunction, Denies loss of vision, Denies motor disturbance, Denies numbness, Denies paralysis, Denies paresthesias, Denies s eizures Psychiatric: Denies anxiety, Denies depression Endocrine: Denies excessive sweating, Denies excessive thirst, Denies high blood sugars, Denies palpitations Objective - Vital Signs Vital signs: Vital Signs Temp 98.5 F 06/05/20 11:58 Pulse 63 06/05/20 11:58 Resp 16 06/05/20 11:58 BP 112/52 06/05/20 11:58 Pulse Ox 97 06/05/20 11:58 Intake & Output 06/04/20 06/05/20 06/05/20 18:59 06:59 18:59 Intake Total 950 Output Total 905 900 Balance 45 -900 Intake: Oral 950 Output: Urine 750 900 Uretheral (Garza) 900 Post Void Residual 155 Other: Voiding Method Urinal Indwelling Catheter Indwelling Catheter Diaper # Voids 1 # Bowel Movements 1 - Exam PHYSICAL EXAMINATION Gen: This is an 89-year-old male. He is resting in bed appears to be in no acute distress. HEENT: Head is atraumatic, normocephalic. Pupils equal, round. Sclerae is anicteric. NECK: Supple. No JVD. No lymphadenopathy. No thyromegaly. LUNGS: Clear to auscultation. No wheezes or rhonchi. No intercostal retractions. HEART: Irregular rate and rhythm. No murmur. ABDOMEN: Soft. Bowel sounds are present. No masses. No tenderness. EXTREMITIES: No pedal edema. No calf tenderness. Patient complains of left knee pain with chronic enlargement and deformity noted. NEUROLOGICAL: Patient is awake, alert and oriented to person. Cranial nerves 2 through 12 are grossly intact. - Labs CBC & Chem 7: 06/05/20 07:29 06/05/20 07:29 Labs: Abnormal Lab Results - Last 24 Hours (Table) 06/05/20 06/05/20 Range/Units 07:29 07:29 RBC 2.35 L (4.30-5.90) m/uL Hgb 7.6 L D (13.0-17.5) gm/dL Hct 23.7 L (39.0-53.0) % MCV 100.8 H (80.0-100.0) fL BUN 80 H (9-20) mg/dL Creatinine 2.74 H (0.66-1.25) mg/dL Glucose 107 H (74-99) mg/dL Calcium 8.1 L (8.4-10.2) mg/dL Assessment and Plan Plan: ASSESSMENT AND PLAN 1. Acute kidney injury possible obstructive improved with garza catheter and iv fluds Does have h/o obstructive uropathy in dec . Consult with nephrology appreciated avoid nephrotoxic agents 2. Metabolic acidosis secondary to renal failure. resolved 3. Hyperkalemia secondary to renal failure. Repeat blood work. 4. Paroxysmal atrial fibrillation. Continue flecainide 50 mg twice daily, Lopressor 25 mg twice daily. Patient is not on anticoagulation due to frequent falls. 5. Benign prostatic hypertrophy and history of prostate cancer s/p radiation , monitor for urinary retention. Continue Flomax 0.4 mg daily 6. Chronic kidney disease stage III. 7. Hypertension. Continue Lopressor and flecainide. 8. DVT prophylaxis. Heparin subcu. 9. GI prophylaxis. Protonix 10. Chronic bilateral hydronephrosis. DISCHARGE PLAN [facility] for subacute rehab on Sunday. PT and OT following. COVID19 testing ordered.
[2020-06-05 18:55] LABS: Basophils % (A) 0 %; Eosinophils # (A) 0.1 k/uL (0-0.7); Eosinophils % (A) 2 %; HGB 8.9 gm/dL (13.0-17.5); Lymphocytes # (A) 0.7 k/uL (1.0-4.8); Lymphocytes % (A) 10 %; MCH 33.8 pg (25.0-35.0); MCV 102.4 fL (80.0-100.0); Macrocytosis Slight; Mean Platelet Volume 6.8; Monocytes # (A) 0.3 k/uL (0-1.0); Monocytes % (A) 5 %; Neutrophils # (A) 5.2 k/uL (1.3-7.7); Neutrophils % (A) 82 %; Platelet Count 312 k/uL (150-450); RBC 2.63 m/uL (4.30-5.90); RDW 14.5 % (11.5-15.5); WBC 6.4 k/uL (3.8-10.6)
[2020-06-05] MEDS: ACETAMINOPHEN TAB 325 MG TAB PO PRN (21:31)
[2020-06-06] MEDS: MAGNESIUM OXIDE 400 MG TAB PO SCH (07:41)
[2020-06-06] MEDS: CYANOCOBALAMIN 500 MCG TAB PO SCH ×2 (07:41→21:50)
[2020-06-06] MEDS: METOPROLOL TARTRATE 25 MG TAB PO SCH ×2 (07:41→21:50)
[2020-06-06] MEDS: TAMSULOSIN 0.4 MG CAP.ER.24H PO SCH (07:41)
[2020-06-06] MEDS: FLECAINIDE 50 MG TAB PO SCH ×2 (07:41→21:51)
[2020-06-06] MEDS: SODIUM BICARBONATE TAB 650 MG TAB PO SCH ×3 (07:41→21:51)
[2020-06-06] MEDS: PANTOPRAZOLE 40 MG TABLET PO SCH (07:41)
[2020-06-06] MEDS: HEPARIN SODIUM,PORCINE 5,000 UNIT/ML 1 ML VIAL SQ SCH ×2 (07:41→21:51)
[2020-06-06 09:26] LABS: African American GFR (CKD) 23.5 (60.0-200.0); Anion Gap 9.6 mmol/L (4.00-12.00); BUN/Creat Ratio 27.78 Ratio (12.00-20.00); Calcium 8.3 mg/dL (8.7-10.3); Carbon Dioxide 24.4 mmol/L (21.6-31.8); Non-African American GFR(CKD) 20.3 (60.0-200.0); Potassium 4.4 mmol/L (3.5-5.5)
--- NOTE | 2020-06-06 11:34 | P.PN ---
Subjective Progress Note Date: 06/06/20 The patient is in the hospital with acute renal failure. He was found to have bilateral hydronephrosis that appears to be chronic. He has had previous [place] Although he does not have classically defined urine retention his urine residuals of greater than 150 mL are probably retention for him as he probably has an inelastic bladder due to radiation. He seems to be more comfortable with indwelling catheter which I would leave for now. Objective - Vital Signs Vital signs: Vital Signs Temp 98.6 F 06/06/20 11:25 Pulse 71 06/06/20 11:25 Resp 17 06/06/20 11:25 BP 116/63 06/06/20 11:25 Pulse Ox 96 06/06/20 11:25 Intake & Output 06/05/20 06/06/20 06/06/20 17:59 06:59 18:59 Intake Total Output Total Balance Intake: Intake, IV Titration Amount Dextrose 5% in Water 1, 000 ml @ 20 mls/hr IV . Q24H SAHIL with Sodium Bicarb (1 Meq/ml) 150 ml Rx#:[id number] Oral Output: Urine Uretheral (Kaiser) Other: Voiding Method Indwelling Catheter - Labs CBC & Chem 7: 06/05/20 18:31 06/06/20 05:07 Labs: Abnormal Lab Results - Last 24 Hours (Table) 06/05/20 06/06/20 Range/Units 18:31 05:07 RBC 2.63 L (4.30-5.90) m/uL Hgb 8.9 L (13.0-17.5) gm/dL Hct 27.0 L (39.0-53.0) % MCV 102.4 H (80.0-100.0) fL Lymphocytes # 0.7 L (1.0-4.8) k/uL BUN 75.0 H (9.0-27.0) mg/dL Creatinine 2.7 H (0.6-1.5) mg/dL Est GFR (CKD-EPI)AfAm 23.5 L (60.0-200.0) Est GFR (CKD-EPI)NonAf 20.3 L (60.0-200.0) BUN/Creatinine Ratio 27.78 H (12.00-20.00) Ratio Calcium 8.3 L (8.7-10.3) mg/dL
--- NOTE | 2020-06-06 13:13 | P.PN ---
Subjective Progress Note Date: 06/06/20 Principal diagnosis: Is a 89-year-old male seen in consultation because of acute kidney injury from low intake, and chronic kidney disease stage III, secondary to nephrosclerosis w ith a baseline creatinine off 1.8 dated 04/02/2020. On IV fluids is acute kidney injury is improved, he had also severe acidosis. His bicarb was less than 10 gap was not calculated. The cause of this was not clear that might be combination of acute kidney injury and some GI losses Subsequently has improved with bicarb of 24 He denies any diarrhea but in the past before admission he might have had diarrhea. Not sure of this. He states his appetite is good but like the food. Denies any nausea vomiting abdominal pain or diarrhea He is hard of hearing sometimes difficult to communicate with A Kaiser catheter was inserted. Workup has shown a negative urine culture although urinalysis suggestive of UTI. Was not on any antibiotics at the time of admission and the urine culture being obtained he was off of any antibiotics. Objective - Vital Signs Vital signs: Vital Signs Temp 98.6 F 06/06/20 11:25 Pulse 71 06/06/20 11:25 Resp 17 06/06/20 11:25 BP 116/63 06/06/20 11:25 Pulse Ox 96 06/06/20 11:25 Intake & Output 06/05/20 06/06/20 06/06/20 17:59 06:59 18:59 Intake Total Output Total Balance Intake: Intake, IV Titration Amount Dextrose 5% in Water 1, 000 ml @ 20 mls/hr IV . Q24H SAHIL with Sodium Bicarb (1 Meq/ml) 150 ml Rx#:[id number] Oral Output: Urine Uretheral (Kaiser) Other: Voiding Method Indwelling Catheter On examination is awake alert oriented comfortable HEENT exam no JVP neck is supple no facial asymmetry Lungs are clear to auscultation good air entry bilaterally Heart sounds are unremarkable no murmur rub gallop Abdomen soft nontender Extreme exam reveals no edema Neurologically awake alert oriented but generalized weakness - Labs CBC & Chem 7: 06/05/20 18:31 06/06/20 05:07 Labs: Abnormal Lab Results - Last 24 Hours (Table) 06/05/20 06/06/20 Range/Units 18:31 05:07 RBC 2.63 L (4.30-5.90) m/uL Hgb 8.9 L (13.0-17.5) gm/dL Hct 27.0 L (39.0-53.0) % MCV 102.4 H (80.0-100.0) fL Lymphocytes # 0.7 L (1.0-4.8) k/uL BUN 75.0 H (9.0-27.0) mg/dL Creatinine 2.7 H (0.6-1.5) mg/dL Est GFR (CKD-EPI)AfAm 23.5 L (60.0-200.0) Est GFR (CKD-EPI)NonAf 20.3 L (60.0-200.0) BUN/Creatinine Ratio 27.78 H (12.00-20.00) Ratio Calcium 8.3 L (8.7-10.3) mg/dL Assessment and Plan Assessment: Impression 1. Acute kidney injury from low intake improved with IV fluids, also might have been an element of obstruction at the outlet as he had Kaiser catheter placed and supposedly had urinary retention. Creatinine is slowly improving, to 2.7 as of yesterday and same today 2. Severe gap and non-gap acidosis resolved etiology is acute kidney injury possibly also from diarrhea resolved 3. Chronic kidney disease stage III secondary to nephrosclerosis Baseline creatinine is 1.9 to as of 03/19/2020. 4. History of neurogenic bladder has a Kaiser catheter indwelling, Recommendation 1. Maintain oral hydration and protein intake 2. We will repeat labs tomorrow
--- NOTE | 2020-06-06 17:18 | P.PN ---
Subjective Progress Note Date: 06/13/20 HISTORY OF PRESENT ILLNESS This is an 89-year-old male patient of Dr. Ramos with past medical history of paroxysmal atrial fibrillation, benign prostatic hypertrophy and his tory of prostate cancer, history of urinary retention requiring Garza catheter in the past and follows with urology on a regular basis, chronic kidney disease stage III, hypertension. Patient was hospitalized in February for acute kidney injury, bilateral hydronephrosis and was discharged to [facility] for subacute rehab. Patient's son states that he was discharged home about one month ago. Son also states the patient has been doing well and doing well with physical therapy to the point that they discontinue services. He has been walking with a walker. He is normally awake and oriented 3. For the past week patient has stopped eating but son thought he was still drinking adequate amount of water. He is also been taking protein shakes. Patient was brought into [facility] emergency center for generalized weakness, increased falls. Patient was found to have CO2 of 8, BUN 146 and creatinine 3.55. Sodium 136, potassium 5.5, chloride 112. Blood sugar 127. Phosphorus 5.5. Magnesium 2.0. Troponin negative. TSH 6.020 with a normal free T4. CBC was unremarkable. Urinalysis was turbid, blood moderate, leukoesterase large, RBC 10, Alisha BC greater than 182, WBC clumps many. Coronavirus PCR not detected. Patient was given 500 mL fluid bolus and started on IV fluids, [facility] and consult with nephrology. At the time of evaluation, patient is very confused. He is very hard of hearing but even after patient was helped with his hearing aid, he continued to have confusion does not realize he is in the hospital. 06/04: Patient continues to have confusion and is extremely hard of hearing. No new complaints. He has been afebrile, heart rate 99, blood pressure 106/61, pulse ox 99% on room air. Repeat blood work reveals sodium 137, potassium 5, chloride 111, CO2 15, BUN 103 and creatinine 2.84. Urine culture is showing skin and genital vladimir. Antibiotics will be discontinued as UTI ruled out. Renal ultrasound reveals chronic changes within the kidneys as well as atrophy, hydronephrosis with severe bilaterally along with cystic disease. Consult has been added for urology and patient has been seen by Dr. Howard and he has de termined that hydronephrosis is chronic. Nephrology is following and patient is continued on IV bicarb, check post void residual. Post void residuals have been under 200. Discharge plan is for [facility] for subacute rehab and Covid 19 testing ordered per request of [facility]. 06/05 patient examined at bedside. Patient is extremely hard of hearing and is unable to communicate much. But he denies any chest pain shortness of breath or difficulty urinating. He apparently patient had afoly cath yesterday with 1800 mL urine output remained last shift. Patient was evaluated by nephrology and urology and if it appears patient's hydronephrosis is chronic but patient might have a thick noncompliant bladder leading to the hydronephrosis. Patient does have history of prostate cancer for which he got radiation which could also lead to suppress the cycle obstruction. Urology thus recommending repeat the Garza catheter until discharge. Patient's BUN improved to 80 and creatinine is improved to 2.74 calcium is 8.1 glucose 107. Patient examined at bedside. Patient is doing well today. No complains . Vitals temp 98.6 pulse 71 respiratory rate 17 and blood pressure 116/63 on room air. Creatinine has improved to 2.7 BUN of 75 calcium 8.3. In space line creatinine 1.9. Patient's skin to be doing well with Garza catheter with possible plan for discharge on Sunday ROS Constitutional: Denies chills, Denies fever, Denies lethargy, Denies malaise, Denies poor appetite, Denies weakness, Denies weight loss Eyes: denies decreased vision, denies diplopia, denies discharge, denies pain Ears: decreased hearing Ears, nose, mouth and throat: Denies dental pain, Denies headache, Denies nasal discharge, Denies nose pain Cardiovascular: Denies chest pain, Denies decreased exercise tolerance, Denies edema, Denies high blood pressure, Denies irregular heart beat, Denies palpitations, Denies paroxysmal nocturnal dyspnea, Denies rapid heart beat, Denies shortness of breath Respiratory: Denies congestion, Denies cough, Denies cough with sputum, Denies dyspnea, Denies home oxygen, Denies wheezing Gastrointestinal: Denies abdominal pain, Denies change in bowel habits, Denies coffee ground emesis, Denies early satiety, Denies excessive gas, Denies heartburn, Denies hematemesis, Denies hematochezia, Denies loss of appetite, Denies nausea, Denies vomiting Genitourinary: Denies dysuria, Denies flank pain, Denies kidney stones, Denies menorrhagia, Denies urgency, Denies urinary frequency Musculoskeletal: Denies gait dysfunction, Denies limitation of motion, Denies morning stiffness, Denies muscle cramps Neurological: Denies balance difficulties, Denies change in speech, Denies doubl e vision, Denies gait dysfunction, Denies loss of vision, Denies motor disturbance, Denies numbness, Denies paralysis, Denies paresthesias, Denies seizures Psychiatric: Denies anxiety, Denies depression Endocrine: Denies excessive sweating, Denies excessive thirst, Denies high blood sugars, Denies palpitations Objective - Vital Signs Vital signs: Vital Signs Temp 98.6 F 06/06/20 11:25 Pulse 71 06/06/20 11:25 Resp 17 06/06/20 11:25 BP 116/63 06/06/20 11:25 Pulse Ox 96 06/06/20 11:25 Intake & Output 06/05/20 06/06/20 06/06/20 17:59 06:59 18:59 Intake Total Output Total Balance Intake: Intake, IV Titration Amount Dextrose 5% in Water 1, 000 ml @ 20 mls/hr IV . Q24H SAHIL with Sodium Bicarb (1 Meq/ml) 150 ml Rx#:[id number] Oral Output: Urine Uretheral (Garza) Other: Voiding Method Indwelling Catheter - Exam PHYSICAL EXAMINATION Gen: This is an 89-year-old male. He is resting in bed appears to be in no acute distress. HEENT: Head is atraumatic, normocephalic. Pupils equal, round. Sclerae is anicteric. NECK: Supple. No JVD. No lymphadenopathy. No thyromegaly. LUNGS: Clear to auscultation. No wheezes or rhonchi. No intercostal retractions. HEART: Irregular rate and rhythm. No murmur. ABDOMEN: Soft. Bowel sounds are present. No masses. No tenderness. EXTREMITIES: No pedal edema. No calf tenderness. Patient complains of left knee pain with chronic enlargement and deformity noted. NEUROLOGICAL: Patient is awake, alert and oriented to person. Cranial nerves 2 through 12 are grossly intact. - Labs CBC & Chem 7: 06/05/20 18:31 06/06/20 05:07 Labs: Abnormal Lab Results - Last 24 Hours (Table) 06/05/20 06/06/20 Range/Units 18:31 05:07 RBC 2.63 L (4.30-5.90) m/uL Hgb 8.9 L (13.0-17.5) gm/dL Hct 27.0 L (39.0-53.0) % MCV 102.4 H (80.0-100.0) fL Lymphocytes # 0.7 L (1.0-4.8) k/uL BUN 75.0 H (9.0-27.0) mg/dL Creatinine 2.7 H (0.6-1.5) mg/dL Est GFR (CKD-EPI)AfAm 23.5 L (60.0-200.0) Est GFR (CKD-EPI)NonAf 20.3 L (60.0-200.0) BUN/Creatinine Ratio 27.78 H (12.00-20.00) Ratio Calcium 8.3 L (8.7-10.3) mg/dL Assessment and Plan Plan: ASSESSMENT AND PLAN 1. Acute kidney injury possible obstructive improved with garza catheter and iv fluds Does have h/o obstructive uropathy in feb . Consult with nephrology appreciated avoid nephrotoxic agents 2. Metabolic acidosis secondary to renal failure. resolved 3. Hyperkalemia secondary to renal failure. Repeat blood work. 4. Paroxysmal atrial fibrillation. Continue flecainide 50 mg twice daily, Lopressor 25 mg twice daily. Patient is not on anticoagulation due to frequent falls. 5. Benign prostatic hypertrophy and history of prostate cancer s/p radiation , monitor for urinary retention. Continue Flomax 0.4 mg daily 6. Chronic kidney disease stage III. 7. Hypertension. Continue Lopressor and flecainide. 8. DVT prophylaxis. Heparin subcu. 9. GI prophylaxis. Protonix 10. Chronic bilateral hydronephrosis. DISCHARGE PLAN [facility] for subacute rehab on Sunday. PT and OT following. COVID19 testing ordered.
[2020-06-06] MEDS: DEXTROSE 5% IN WATER 1,000 ML with SODIUM BICARB (1 MEQ/ML) 150 ML IV SCH (21:51)
[2020-06-07] MEDS ORDERED: LEVOTHYROXINE 25 MCG TAB PO SCH (06:30)
[2020-06-07] MEDS: SODIUM BICARBONATE TAB 650 MG TAB PO SCH (08:47)
[2020-06-07] MEDS: FLECAINIDE 50 MG TAB PO SCH (08:47)
[2020-06-07] MEDS: PANTOPRAZOLE 40 MG TABLET PO SCH (08:47)
[2020-06-07] MEDS: TAMSULOSIN 0.4 MG CAP.ER.24H PO SCH (08:47)
[2020-06-07] MEDS: CYANOCOBALAMIN 500 MCG TAB PO SCH (08:48)
[2020-06-07] MEDS: HEPARIN SODIUM,PORCINE 5,000 UNIT/ML 1 ML VIAL SQ SCH (08:48)
[2020-06-07] MEDS: METOPROLOL TARTRATE 25 MG TAB PO SCH (08:48)
[2020-06-07] MEDS: MAGNESIUM OXIDE 400 MG TAB PO SCH (08:48)
--- NOTE | 2020-06-07 09:50 | P.DS ---
Providers Date of admission: 06/02/20 18:18 Expected date of discharge: 06/07/20 Attending physician: Xiomara Coyne MD Consults: 06/02/20 18:19 Consult Physician Routine Consulting Provider: Nida Villa Consult Reason/Comments: arf Do you want consulting provider notified?: Yes 06/04/20 08:35 Consult Physician Routine Consulting Provider: Lavell Howard Consult Reason/Comments: hydronephrosis Do you want consulting provider notified?: Yes Primary care physician: Dev Ramos [facility] Course: HISTORY OF PRESENT ILLNESS This is an 89-year-old male patient of Dr. Ramos with past medical history of paroxysmal atrial fibrillation, benign prostatic hypertrophy and history of prostate cancer, history of urinary retention requiring Garza catheter in the past and follows with urology on a regular basis, chronic kidney disease stage III, hypertension. Patient was hospitalized in February for acute kidney injury, bilateral hydronephrosis and was discharged to [facility] for subacute rehab. Patient's son states that he was discharged home about one month ago. Son also states the patient has been doing well and doing well with physical therapy to the point that they discontinue services. He has been walking with a walker. He is normally awake and oriented 3. For the past week patient has stopped eating but son thought he was still drinking adequate amount of water. He is also been taking protein shakes. Patient was brought into [facility] emergency center for generalized weakness, increased falls. Patient was found to have CO2 of 8, BUN 146 and creatinine 3.55. Sodium 136, potassium 5.5, chloride 112. Blood sugar 127. Phosphorus 5.5. Magnesium 2.0. Troponin negative. TSH 6.020 with a normal free T4. CBC was unremarkable. Urinalysis was turbid, blood moderate, leukoesterase large, RBC 10, Alisha BC greater than 182, WBC clumps many. Coronavirus PCR not detected. Patient was given 500 mL fluid bolus and started on IV fluids, admitted to the [facility] floor and consult with nephrology. At the time of evaluation, patient is very confused. He is very hard of hearing but even after patient was helped with his hearing aid, he continued to have confusion does not realize he is in the hospital. 06/04: Patient continues to have confusion and is extremely hard of hearing. No new complaints. He has been afebrile, heart rate 99, blood pressure 106/61, pulse ox 99% on room air. Repeat blood work reveals sodium 137, potassium 5, chloride 111, CO2 15, BUN 103 and creatinine 2.84. Urine culture is showing skin and genital vladimir. Antibiotics will be discontinued as UTI ruled out. Renal ultrasound reveals chronic changes within the kidneys as well as atrophy, hydronephrosis with severe bilaterally along with cystic disease. Consult has been added for urology and patient has been seen by Dr. Howard and he has determined that hydronephrosis is chronic. Nephrology is following and patient is continued on IV bicarb, check post void residual. Post void residuals have been under 200. Discharge plan is for [facility] for subacute rehab and Covid 19 testing ordered per request of [facility]. 06/05 patient examined at bedside. Patient is extremely hard of hearing and is unable to communicate much. But he denies any chest pain shortness of breath or difficulty urinating. He apparently patient had afoly cath yesterday with 1800 mL urine output remained last shift. Patient was evaluated by nephrology and urology and if it appears patient's hydronephrosis is chronic but patient might have a thick noncompliant bladder leading to the hydronephrosis. Patient does have history of prostate cancer for which he got radiation which could also lead to suppress the cycle obstruction. Urology thus recommending repeat the Garza catheter until discharge. Patient's BUN improved to 80 and creatinine is improved to 2.74 calcium is 8.1 glucose 107. 06/06 Patient examined at bedside. Patient is doing well today. No complains . Vitals temp 98.6 pulse 71 respiratory rate 17 and blood pressure 116/63 on room air. Creatinine has improved to 2.7 BUN of 75 calcium 8.3. In space line crea tinine 1.9. Patient's skin to be doing well with Garza catheter with possible plan for discharge on Wednesday 06/07: Patient has been stable, garza remains in place. Creatinine 2.6 today. BUN 66. No new complaints from the patient. He has been afebrile, HR 63, BP 130/64. Patient cleared for discharge by nephrology. Patient will be discharged to [facility] today in stable condition. ASSESSMENT AND PLAN 1. Acute kidney injury possible obstructive improved with garza catheter and iv fluds Does have h/o obstructive uropathy in feb . 2. Metabolic acidosis secondary to renal failure. r 3. Hyperkalemia secondary to renal failure. 4. Paroxysmal atrial fibrillation. 5. Benign prostatic hypertrophy and history of prostate cancer s/p radiation with urinary retention requiring Garza catheter. 6. Chronic kidney disease stage III. 7. Hypertension. 8. Chronic bilateral hydronephrosis. DISCHARGE PLAN [facility] for subacute rehab. COVID19 testing negative. Impression and plan of care have been directed as dictated by the signing physician. Tena Silva nurse practitioner acting as scribe for signing physician. Patient Condition at Discharge: Good Plan - Discharge Summary New Discharge Prescriptions: New Sodium Bicarbonate Tab 650 mg PO TID tab Levothyroxine Sodium [Synthroid] 25 mcg PO DAILY@0630 tab Continue Flecainide Acetate 50 mg PO BID Cyanocobalamin [Vitamin B-12] 500 mcg PO BID Tamsulosin [Flomax] 0.4 mg PO DAILY Metoprolol Tartrate [Lopressor] 25 mg PO BID Magnesium Oxide 420mg 420 mg PO DAILY Cranberry(Unknown Dose) 1 tab PO DAILY Acetaminophen Tab [Tylenol] 650 mg PO Q6HR PRN PRN Reason: Pain Discharge Medication List Cyanocobalamin [Vitamin B-12] 500 mcg PO BID 05/01/19 [History] Flecainide Acetate 50 mg PO BID 05/01/19 [History] Metoprolol Tartrate [Lopressor] 25 mg PO BID 05/01/19 [History] Tamsulosin [Flomax] 0.4 mg PO DAILY 05/01/19 [History] Magnesium Oxide 420mg 420 mg PO DAILY 03/12/20 [History] Acetaminophen Tab [Tylenol] 650 mg PO Q6HR PRN 06/02/20 [History] Cranberry(Unknown Dose) 1 tab PO DAILY 06/02/20 [History] Levothyroxine Sodium [Synthroid] 25 mcg PO DAILY@0630 tab 06/07/20 [Rx] Sodium Bicarbonate Tab 650 mg PO TID tab 06/07/20 [Rx] Follow up Appointment(s)/Referral(s): Cordell Moreira MD [STAFF PHYSICIAN] - 2 Weeks Dev Ramos MD [Primary Care Provider] - 1 Week (after discharge from [facility]) Discharge Disposition: TRANSFER TO SNF/ECF
[2020-06-07 09:56] LABS: African American GFR (CKD) 24.6 (60.0-200.0); Anion Gap 10.5 mmol/L (4.00-12.00); BUN/Creat Ratio 25.38 Ratio (12.00-20.00); Calcium 8.4 mg/dL (8.7-10.3); Carbon Dioxide 23.5 mmol/L (21.6-31.8); Non-African American GFR(CKD) 21.2 (60.0-200.0); Potassium 4.6 mmol/L (3.5-5.5)
--- NOTE | 2020-06-07 10:22 | P.PN ---
Subjective Patient is seen in follow-up for acute kidney injury and chronic kidney disease. Renal function slightly better. Has a [employer] catheter. Nonoliguric. Feels tired. Hemodynamically stable. Vital signs are stable. General: The patient appeared well nourished and normally developed. HEENT: Head exam is unremarkable. Neck is without jugular venous distension. LUNGS: Breath sounds decreased. HEART: Rate and Rhythm are regular. ABDOMEN: Soft, nontender. EXTREMITITES: No edema. Objective - Vital Signs Vital signs: Vital Signs Temp 98.3 F 06/07/20 05:40 Pulse 63 06/07/20 05:40 Resp 20 06/07/20 05:40 BP 130/64 06/07/20 05:40 Pulse Ox 95 06/07/20 05:40 Intake & Output 06/06/20 06/07/20 06/07/20 18:59 06:59 18:59 Intake Total 280 Output Total 1200 700 Balance -1200 280 -700 Intake: Intake, IV Titration 180 Amount Dextrose 5% in Water 1, 180 000 ml @ 20 mls/hr IV . Q24H SAHIL with Sodium Bicarb (1 Meq/ml) 150 ml Rx#:[id number] Oral 100 Output: Urine 1200 700 Other: Voiding Method Indwelling Catheter Indwelling Catheter Indwelling Catheter - Labs CBC & Chem 7: 06/05/20 18:31 06/07/20 04:48 Labs: Abnormal Lab Results - Last 24 Hours (Table) 06/07/20 Range/Units 04:48 BUN 66.0 H (9.0-27.0) mg/dL Creatinine 2.6 H (0.6-1.5) mg/dL Est GFR (CKD-EPI)AfAm 24.6 L (60.0-200.0) Est GFR (CKD-EPI)NonAf 21.2 L (60.0-200.0) BUN/Creatinine Ratio 25.38 H (12.00-20.00) Ratio Calcium 8.4 L (8.7-10.3) mg/dL Assessment and Plan Plan: Assessment: 1. Acute kidney injury mostly prerenal from poor intake and also component of urinary retention/structures uropathy. Renal function slowly improving. Cr eatinine 2.6 today. 2. Chronic kidney disease stage IIIB with baseline creatinine in the range of 1.8-2.2. 3. Urinary retention. Currently is a [employer] catheter. Also on Flomax. 4. Metabolic acidosis secondary to acute kidney injury on admission. Resolved. Status post bicarb drip. Now on oral bicarbonate. 5. Anemia of chronic kidney disease. 6. History of A. fib. 7. Bilateral hydronephrosis. Urology following. Plan: Avoid nephrotoxins. Encourage oral intake. Patient is going to subacute rehab today. Follow up outpatient in 1 week. Due to age and comorbidities, will avoid aggressive measures.
[2020-06-07] MEDS ORDERED: DARBEPOETIN ALFA 40 MCG/0.4 ML SYRINGE SQ SCH (12:00)
[2020-06-07 12:14] VITALS: BP 114/60; PULSE 74; RESP 18; TEMP 98.4
== END 2020-06-07 14:56 | DRG 683 ==
LOC: EC 16:28 → 4SSUR 18:18 → 5NMEDONC 20:06
PROVIDERS: ADMIT Internal Medicine; ATTEND Internal Medicine
DX: N17.9 Acute kidney failure, unspecified (principal); E87.2 Acidosis; I48.20 Chronic atrial fibrillation, unspecified; N13.6 Pyonephrosis; Z85.46 Personal history of malignant neoplasm of prostate; Z92.3 Personal history of irradiation; Z87.442 Personal history of urinary calculi; G89.29 Other chronic pain; M54.5 Low back pain; Z86.14 Personal history of Methicillin resistant Staphylococcus aureus infection; Z82.49 Family history of ischemic heart disease and other diseases of the circulatory system; I48.0 Paroxysmal atrial fibrillation; I12.9 Hypertensive chronic kidney disease with stage 1 through stage 4 chronic kidney disease, or unspecified chronic kidney disease; H91.90 Unspecified hearing loss, unspecified ear; Z87.891 Personal history of nicotine dependence; E87.5 Hyperkalemia; R29.6 Repeated falls; M25.562 Pain in left knee; Z20.828 Contact with and (suspected) exposure to other viral communicable diseases; N40.1 Benign prostatic hyperplasia with lower urinary tract symptoms; R82.81 Pyuria; N31.9 Neuromuscular dysfunction of bladder, unspecified; D63.1 Anemia in chronic kidney disease; N18.30 Chronic kidney disease, stage 3 unspecified
CPT/HCPCS: 36415; 70450; 71046; 76770; 80048; 80053; 81001; 83605; 83735; 84100; 84439; 84443; 84481; 84484; 85025; 85027; 85610; 85730; 87086; 87635; 93005; 96360; 96361; 99285

== ENCOUNTER 2020-09-20 11:37 | Inpatient (IN) | payer MEDICARE, OTHER ==
[2020-09-20] MEDS ORDERED: SODIUM CHLORIDE 0.9% 500 ML 500 ML IV STA (12:30)
--- NOTE | 2020-09-20 12:35 | ED ---
Nausea/Vomiting/Diarrhea HPI - General Chief complaint: Nausea/Vomiting/Diarrhea Stated complaint: Diarrhea Source: patient, EMS, RN notes reviewed, old records reviewed Mode of arrival: EMS Limitations: language barrier - History of Present Illness Initial comments: 89-year-old hard of hearing white male presents to the emergency room with multiple episodes of diarrhea today. Patient states it was like color denies any blood dates that the pain does feel like its getting better now and the diarrhea has stopped since has been here. Patient describes the abdominal discomfort as crampy but now just tender to palpation. Patient denies any nausea vomiting. Patient denies any fevers. He has a history of atrial fibrillation, prostate cancer, many stones, hypertension, renal disease. He has a surgical history of appendectomy and hiatal hernia. MD complaint: diarrhea -: days(s) (1) Description of Diarrhea: water Associated Abdominal Pain: Yes Location: LLQ, RLQ Radiation: none Severity: mild Quality: cramping Consistency: now resolved Associated Symptoms: denies other symptoms - Related Data Home Medications Medication Instructions Recorded Confirmed Cyanocobalamin [Vitamin B-12] 500 mcg PO BID 05/01/19 09/20/20 Flecainide Acetate 50 mg PO Q12H 05/01/19 09/20/20 Metoprolol Tartrate [Lopressor] 25 mg PO BID 05/01/19 09/20/20 Tamsulosin [Flomax] 0.4 mg PO DAILY 05/01/19 09/20/20 Magnesium Oxide 420mg 420 mg PO DAILY 03/12/20 09/20/20 Cranberry(Unknown Dose) 1 tab PO DAILY 06/02/20 09/20/20 Aspirin 81 mg PO DAILY 09/20/20 09/20/20 Multivitamins, Thera [Multivitamin 1 tab PO DAILY 09/20/20 09/20/20 (formulary)] [place]-3 Fatty Acids/Fish Oil [Fish 2 tab PO DAILY 09/20/20 09/20/20 Oil 1,000 mg Softgel] Zinc 50 mg PO DAILY 09/20/20 09/20/20 Allergies Allergy/AdvReac Type Severity Reaction Status Date / Time furosemide [From Lasix] Allergy "urinary Verified 09/20/20 15:26 incontinence" goserelin Allergy "hot Verified 09/20/20 15:26 flashes" Review of Systems ROS Statement: Those systems with pertinent positive or pertinent negative responses have been documented in the HPI. ROS Other: All systems not noted in ROS Statement are negative. Past Medical History Past Medical History: Atrial Fibrillation, Cancer, Hypertension, Prostate Disorder, Renal Disease Additional Past Medical History / Comment(s): Prosate cancer with radiation, kidney stones passed on his own and surgically removed, UTIs, chronic low back pain, occasional sinus problems. [facility]. History of Any Multi-Drug Resistant Organisms: MRSA Date of last positivie culture/infection: 2017 MDRO Source:: urine? family/pt unsure Past Surgical History: Appendectomy, Hernia Repair, Orthopedic Surgery Additional Past Surgical History / Comment(s): Lithotripsy, hiatal hernia repair, L knee open surgery to "clean it out", colonoscopy, circumcism later in life d/t UTIs. Past Anesthesia/Blood Transfusion Reactions: No Reported Reaction Past Psychological History: No Psychological Hx Reported Smoking Status: Never smoker Past Alcohol Use History: None Reported Past Drug Use History: None Reported - Past Family History Father Family Medical History: Hypertension Additional Family Medical History / Comment(s): Father at age 82 from old age. Mother Additional Family Medical History / Comment(s): Mother at age 82 and was in a coma at the time. Patient is unsure of cause of her or causative coma. Brother(s) Additional Family Medical History / Comment(s): Patient has 1 brother that is . He is not know any of his medical history. Patient does not have any sisters. Patient has 4 daughters and 4 sons with no major medical problems. General Exam Limitations: language barrier General appearance: alert, in no apparent distress Head exam: Present: atraumatic, normocephalic, normal inspection Eye exam: Present: normal appearance, PERRL, EOMI. Absent: scleral icterus, conjunctival injection, periorbital swelling ENT exam: Present: normal exam, mucous membranes dry Neck exam: Present: normal inspection, full ROM. Absent: tenderness, meningismus, lymphadenopathy, thyromegaly Respiratory exam: Present: normal lung sounds bilaterally. Absent: respiratory distress, wheezes, rales, rhonchi, stridor, chest wall tenderness, accessory muscle use, decreased breath sounds Cardiovascular Exam: Present: tachycardia GI/Abdominal exam: Present: soft, tenderness, normal bowel sounds. Absent: guarding, rebound, rigid, mass Back exam: Present: normal inspection. Absent: tenderness, CVA tenderness (R), CVA tenderness (L), muscle spasm, paraspinal tenderness, vertebral tenderness Neurological exam: Present: alert, oriented X3, CN II-XII intact Psychiatric exam: Present: normal affect, normal mood Skin exam: Present: warm, dry, intact, normal color. Absent: rash, cyanosis, diaphoretic, erythema, petechiae, pallor, mottled Course Vital Signs 09/20/20 09/20/20 09/20/20 11:40 13:00 14:11 Temperature 98 F Pulse Rate 106 H 81 87 Respiratory 18 18 16 Rate Blood Pressure 95/62 96/50 99/58 O2 Sat by Pulse 99 98 96 Oximetry 09/20/20 15:56 Temperature Pulse Rate 79 Respiratory 18 Rate Blood Pressure 100/58 O2 Sat by Pulse 100 Oximetry Medical Decision Making - Medical Decision Making Patient's hemoglobin and hematocrit is 20.1 and 61.9 respectively his white blood cell count is 2.1, V1 as 106 and creatinine is 4.3. Creatinine was 2.[address] abdomen and pelvis shows bilateral renal cysts measuring up to 2.8 cm with a beer bilateral hydronephrosis and hydroureter. There are prominent fluid-filled small bowel loops throughout the abdomen but no free fluid or free air. There is a moderate to large amount of stool within sigmoid colon and rectum is distended to 7.5 cm. Bladder wall is thickened with mild surrounding fat stranding shows circumferentially thickened and mildly inflamed wall with an appearance of a thickened internal septation unknown etiology. This may represent some type of neoplastic etiology or a dissection of urine within the bladder wall or an intramural abscess. These findings could represent fecal impaction or venous congestion from excessive stool distention versus colitis. Case discussed with Dr. Balbuena. Dr. Ruiz notified large amount of stool within sigmoid colon and rectum circumferential wall thickening. Dr. Culver from urology notified of the hydronephrosis as [facility] [address] [facility] catheter in consult. Dr. Bess notified of admission requesting Nephro consult. Patient will be admitted to the hospital. - Lab Data Result diagrams: 09/20/20 12:50 09/20/20 12:50 Lab Results 09/20/20 09/20/20 Range/Units 12:50 12:50 WBC 2.1 L (3.8-10.6) k/uL RBC 6.10 H (4.30-5.90) m/uL Hgb 20.1 H* (13.0-17.5) gm/dL Hct 61.9 H* (39.0-53.0) % MCV 101.4 H (80.0-100.0) fL MCH 32.9 (25.0-35.0) pg MCHC 32.5 (31.0-37.0) g/dL RDW 12.9 (11.5-15.5) % Plt Count 136 L (150-450) k/uL MPV 6.3 Neutrophils % 83 % Lymphocytes % 6 % Monocytes % 9 % Eosinophils % 1 % Basophils % 1 % Neutrophils # 1.7 (1.3-7.7) k/uL Lymphocytes # 0.1 L (1.0-4.8) k/uL Monocytes # 0.2 (0-1.0) k/uL Eosinophils # 0.0 (0-0.7) k/uL Basophils # 0.0 (0-0.2) k/uL Sodium 135 L (137-145) mmol/L Potassium 4.5 (3.5-5.1) mmol/L Chloride 107 (98-107) mmol/L Carbon Dioxide 13 L (22-30) mmol/L Anion Gap 15 mmol/L BUN 106 H* (9-20) mg/dL Creatinine 4.33 H (0.66-1.25) mg/dL Est GFR (CKD-EPI)AfAm 13 (>60 ml/min/1.73 sqM) Est GFR (CKD-EPI)NonAf 11 (>60 ml/min/1.73 sqM) Glucose 130 H (74-99) mg/dL Calcium 9.0 (8.4-10.2) mg/dL Total Bilirubin 0.4 (0.2-1.3) mg/dL AST 33 (17-59) U/L ALT 21 (4-49) U/L Alkaline Phosphatase 88 (38-126) U/L Total Protein 6.4 (6.3-8.2) g/dL Albumin 3.2 L (3.5-5.0) g/dL Amylase 82 (30-110) U/L Lipase 135 (23-300) U/L Disposition Clinical Impression: Hydronephrosis, Acute kidney injury Disposition: ADMITTED IP TO THIS [facility] Condition: Fair Referrals: Ramana Bess MD [Primary Care Provider] - 1-2 days Decision Date: 09/20/20 Decision Time: 16:35
[2020-09-20 13:27] LABS: Basophils % (A) 1 %; Eosinophils % (A) 1 %; Lymphocytes # (A) 0.1 k/uL (1.0-4.8); Lymphocytes % (A) 6 %; MCH 32.9 pg (25.0-35.0); MCHC 32.5 g/dL (31.0-37.0); MCV 101.4 fL (80.0-100.0); Mean Platelet Volume 6.3; Monocytes # (A) 0.2 k/uL (0-1.0); Monocytes % (A) 9 %; Neutrophils # (A) 1.7 k/uL (1.3-7.7); Neutrophils % (A) 83 %; Platelet Count 136 k/uL (150-450); RDW 12.9 % (11.5-15.5); WBC 2.1 k/uL (3.8-10.6)
[2020-09-20 13:29] LABS: Albumin 3.2 g/dL (3.5-5.0); Potassium 4.5 mmol/L (3.5-5.1); Total Bilirubin 0.4 mg/dL (0.2-1.3); Total Protein 6.4 g/dL (6.3-8.2)
[2020-09-20 13:30] LABS: HGB 20.1 gm/dL (13.0-17.5)
[2020-09-20 13:31] LABS: HCT 61.9 % (39.0-53.0)
--- NOTE | 2020-09-20 13:35 | XR ---
EXAMINATION TYPE: XR KUB DATE OF EXAM: 09/20/2020 Comparison: None Clinical History: 89-year-old male pain Findings: Moderate to large stool distal sigmoid and rectum. Degenerated S-shaped scoliosis of the lumbar spine . No dilated small bowel. Gas in colon. Lung bases are clear. Vascular calcifications throughout the left side of the abdomen. Supine imaging limited for assessment of free air. IMPRESSION: Moderate to large stool distal sigmoid and rectum. Nonobstructive bowel gas pattern. Degenerated S-sh aped scoliosis of the lumbar spine.
[2020-09-20] MEDS ORDERED: SODIUM CHLORIDE 0.9% 1,000 ML IV ONE (14:20)
--- NOTE | 2020-09-20 15:37 | CT ---
EXAMINATION TYPE: CT abdomen pelvis wo con DATE OF EXAM: 09/20/2020 COMPARISON: 03/18/2020 HISTORY: 89-year-old male pain CT DLP: 619.7 mGycm. Automated exposure control for dose reduction was used. TECHNIQUE: Contiguous axial scanning of the abdomen and pelvis without IV contrast. Coronal and sagit joe reconstructions performed. FINDINGS: Ectatic ascending aorta at 3.7 cm. CAD with LAD and RCA coronary calcifications. Calcifications of th e aortic valve. Prominent dependent opacity left greater than right lung bases suggesting atelectasis . No pleural effusion. Small hiatal hernia. Noncontrast appearance of the liver, adrenal glands, spleen, and pancreas show no gross abnormality. There are bilateral renal cysts measuring up to 2.8 cm by severe bilateral hydronephrosis and hydrour eter. Prominent fluid-filled small bowel loops throughout the abdomen and pelvis. Liquid stool noted within the right side of the colon. No dilated small bowel, free fluid, or free air. There is moderate to l arge stool within the sigmoid colon and rectum. Rectum is distended up to 7.5 cm wide with stool with circumferential wall thickening. Some soft tissue thickening and calcification at the base of the bladder in the expected region of th e prostate gland measuring 3.8 x 1.9 cm. Bladder wall is thickened with mild surrounding fat strandin g and there appears to be a thickened septation within the bladder. Unable to determine if this repre sents some type of neoplastic etiology or dissection of urine within the bladder wall or an intramura l abscess. No pelvic lymphadenopathy. Bones: Osteopenia. Moderate degenerative change of both hips and SI joints. Degenerated levoconvex sc oliosis of the lumbar spine. IMPRESSION: 1. Severe bilateral hydronephrosis and hydroureter. The bladder shows circumferentially thickened an d mildly inflamed wall with the appearance of a thickened internal septation. The exact etiology of t his appearance is unclear. Neoplastic etiology, dissection of urine into the bladder wall or intramur al abscess are considerations. 2. Moderate to large stool within the sigmoid colon and rectum. Rectum is distended up to 7.5 cm wid e with stool and demonstrates associated wall thickening. Findings could represent fecal impaction wi th venous congestion from the excessive rectal distention versus colitis.
[2020-09-20] MEDS ORDERED: NALOXONE 0.4 MG/ML 1 ML VIAL IV PRN (16:35)
[2020-09-20] MEDS: SODIUM CHLORIDE 0.9% 1,000 ML IV SCH (18:29)
[2020-09-20 19:00] LABS: Appearance,Urine Turbid (Clear); Bilirubin,Urine Negative (Negative); Blood,Urine Moderate (Negative); Color,Urine Yellow; Glucose,Urine (UA) Negative (Negative); Ketones,Urine Negative (Negative); Leukocyte Esterase,Urine Large (Negative); Nitrite,Urine Negative (Negative); Protein,Urine 2+ (Negative); RBC,Urine 28 /hpf (0-5); Urobilinogen,Urine <2.0 mg/dL (<2.0); WBC,Urine >182 /hpf (0-5)
[2020-09-20 19:27] LABS: Specific Gravity,Urine 1.008 (1.001-1.035)
[2020-09-20] MEDS: FLECAINIDE 50 MG TAB PO SCH (22:20)
--- NOTE | 2020-09-21 05:52 | P.HPIM ---
History of Present Illness H&P Date: 09/20/20 Chief Complaint: Abdominal pain, intractable nausea vomiting with diarrhea, recent history o HISTORY OF PRESENT ILLNESS 89-year-old male one of for office patient who was in the hospital last time in 06/03/2020 for generalized weakness and acute GI bleed the time. Patient is known to have history of prostate cancer along with obstructive uropathy and recurrent kidney stone with recurrent UTI. Patient was treated aggressively the time he continued to have significant anemia requiring multiunit blood transfusion at the time. Also developed to have significant urinary retention had indwelling catheter. Was seen and evaluated by urology found to have acute kidney injury with bilateral hydronephrosis and was discharged to [facility] subacute rehab and was doing some outpatient physical therapy afterward. Patient brought to demurs department today with several episode of diarrhea along with nausea vomiting he is not able to tolerate any food or fluid has lost more weight ambulate has been having more tarry stool at the time with slight i ncrease abdominal pain along with the cramps and worsening symptoms. He is known to have history of A. fib, multiple stone, hydronephrosis with chronic kidney disease, history of prostate cancer. Patient is hard hearing is difficult to collect anymore information. Patient abdominal pain and pelvis surprisingly shows severe bilateral hydronephrosis and hydroureter the bladder showed circumferential thickened and mildly inflamed wall with appearance of thickened internal septation with gout clear etiology neoplastic etiology along with dissection of urinary to bladder wall or intramural abscess are consideration. 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 Surprisingly patient is in acute kidney failure with BUN 106 creatinine 4.3 with GFR running around 11 only with the finding on his urine test showed significant white blood cell a long with red blood cell and leukocyte patient be treated for infection as well. Notify urology with the current problem REVIEW OF SYSTEMS Constitutional: No fever, no chills, no night sweats. Significant weight loss, weakness fatigue and lethargy and daytime sleepiness with debility not been able to ambulate and walk. EENT: No headache. No blurred vision or double vision, no loss of vision. No loss of Hearing, no ringing in the ears, positive dizziness. No nasal drainage or congestion. No epistaxis. No sore throat. Lungs: Significant shortness of breath with cough wheezes. Cardiovascular: Positive PND orthopnea palpitations and along with lightheadedness. No syncopal episodes. Abdominal: Abdominal discomfort with nausea no vomiting has a significant change in bowel habits along with worsening appetite Genitourinary: Hematuria with frequency urgency burning discomfort with history of prostate cancer. Musculoskeletal: No myalgias. No muscle weakness, no gait dysfunction, no frequent falls. Positive back and neck pain. Integumentary: No wounds, no lesions. No rash or pruritus. No unusual bruising. No change in hair or nails. Neurologic: No aphasia. No facial droop. No change in mentation. No head injury. No headache. No paralysis. No paresthesia. Psychiatric: No depression. No anxiety. No mood swings. Endocrine: No abnormal blood sugars. No weight change. No excessive sweating or thirst. No cold intolerance. SOCIAL HISTORY Patient lives with his son since he left [facility] last time he is ambulate and walk with a walker he was smoker 1 pack a day for over 40 years he quit few years ago likely abuse lately no elicited drug use. FAMILY HISTORY His father age 82 from old age, mother at 82 from, medically etiology, patient had 1 brother with eye not a clear medical history. Patient does not have any cystoscopy he has 4 daughters and 4 sons are all living and doing well. PHYSICAL EXAMINATION Gen: This is elderly ORIF and has been sick for a while laying in bed cannot hear well and not moving well does not look in any respiratory distress. HEENT: Head is atraumatic, normocephalic. Pupils equal, round. Sclerae is anicteric. NECK: Supple. No JVD. No lymphadenopathy. No thyromegaly. LUNGS: Decreased breath sound bilaterally HAS Mild Expiratory Wheezes and Crackles in the Bases Specially the Right Side. HEART: Irregular rate and rhythm. Positive systolic murmur with positive S3. ABDOMEN: Soft. Bowel sounds are present. Positive discomfort in the midepigastric area lower abdominal region area no rebound or rigidity. EXTREMITIES: No pedal edema. No calf tenderness. NEUROLOGICAL: Patient is awake, alert and oriented with slight confusion. Cranial nerves 2 through 12 are grossly intact. Positive generalized weakness or fatigue. ASSESSMENT AND PLAN 1 acute abdominal pain: Secondary to hydronephrosis, acute kidney injury, and infection. 2 hydronephrosis: With CAT scan significant for both side related to scar tissue and kidney stone, patient is seen urology further management including cystoscopy will be considered. 3 acute kidney injury with stage IV chronic kidney disease along with worsening GFR might require dialysis, continue hydration consult nephrology ultrasound might be done again. 4 significant polycythemia with significantly low white blood cell: This is could be myelodysplasia the opposite to what he had early which she is to be severely anemic at the time. Polycythemia with hematocrit of 61.9 high risk for blood clotting complication. 5 recent history of GI bleed: Was treated and the bleeding has stopped his hemoglobin is much better for now. 6 history of A. fib: Pulse rate has been well controlled still on Tambocor along with metoprolol resume both medication and continue off anticoagulation at this point. 7 history of prostate cancer with BPH and mild retention remain on Flomax. 8 hypertension: Remain on metoprolol. 9 atherosclerotic heart disease: No chest pain or angina still seen cardiology regularly. 10 DVT prophylaxis: Continue early mobilization and knee-high BEVERLY hose. 11 GI prophylaxis: Continue pantoprazole. Admit patient to the inpatient service for more than 2 night stay. Past Medical History Past Medical History: Atrial Fibrillation, Cancer, Hypertension, Prostate Disorder, Renal Disease Additional Past Medical History / Comment(s): Prosate cancer with radiation, kidney stones passed on his own and surgically removed, UTIs, chronic low back pain, occasional sinus problems. [place]. History of Any Multi-Drug Resistant Organisms: MRSA Date of last positivie culture/infection: 2017 MDRO Source:: urine? family/pt unsure Past Surgical History: Appendectomy, Hernia Repair, Orthopedic Surgery Additional Past Surgical History / Comment(s): Lithotripsy, hiatal hernia repair, L knee open surgery to "clean it out", colonoscopy, circumcism later in life d/t UTIs. Past Anesthesia/Blood Transfusion Reactions: No Reported Reaction Past Psychological History: No Psychological Hx Reported Smoking Status: Never smoker Past Alcohol Use History: None Reported Past Drug Use History: None Reported - Past Family History Father Family Medical History: Hypertension Additional Family Medical History / Comment(s): Father at age 82 from old age. Mother Additional Family Medical History / Comment(s): Mother at age 82 and was in a coma at the time. Patient is unsure of cause of her or causative coma. Brother(s) Additional Family Medical History / Comment(s): Patient has 1 brother that is . He is not know any of his medical history. Patient does not have any sisters. Patient has 4 daughters and 4 sons with no major medical problems. Medications and Allergies Home Medications Medication Instructions Recorded Confirmed Type Cyanocobalamin [Vitamin B-12] 500 mcg PO BID 05/01/19 09/20/20 History Flecainide Acetate 50 mg PO Q12H 05/01/19 09/20/20 History Metoprolol Tartrate [Lopressor] 25 mg PO BID 05/01/19 09/20/20 History Tamsulosin [Flomax] 0.4 mg PO DAILY 05/01/19 09/20/20 History Magnesium Oxide 420mg 420 mg PO DAILY 03/12/20 09/20/20 History Cranberry(Unknown Dose) 1 tab PO DAILY 06/02/20 09/20/20 History Aspirin 81 mg PO DAILY 09/20/20 09/20/20 History Multivitamins, Thera [Multivitamin 1 tab PO DAILY 09/20/20 09/20/20 History (formulary)] [place]-3 Fatty Acids/Fish Oil [Fish 2 tab PO DAILY 09/20/20 09/20/20 History Oil 1,000 mg Softgel] Zinc 50 mg PO DAILY 09/20/20 09/20/20 History Allergies Allergy/AdvReac Type Severity Reaction Status Date / Time furosemide [From Lasix] Allergy "urinary Verified 09/20/20 15:26 incontinence" goserelin Allergy "hot Verified 09/20/20 15:26 flashes" Physical Exam Vitals: Vital Signs Temp Pulse Resp BP Pulse Ox 09/20/20 19:50 98.2 F 76 20 108/60 96 09/20/20 17:30 78 18 99/50 98 09/20/20 15:56 79 18 100/58 100 09/20/20 14:11 87 16 99/58 96 09/20/20 13:00 81 18 96/50 98 09/20/20 11:40 98 F 106 H 18 95/62 99 Intake and Output 09/20/20 09/20/20 09/20/20 06:59 14:59 22:59 Output Total 100 Balance -100 Output: Urine 100 Uretheral ([facility]) 100 Other: Weight 58.967 kg Results CBC & Chem 7: 09/20/20 12:50 09/20/20 12:50 Labs: Abnormal Lab Results - Last 24 Hours (Table) 09/20/20 09/20/20 09/20/20 Range/Units 12:50 12:50 12:50 WBC 2.1 L (3.8-10.6) k/uL RBC 6.10 H (4.30-5.90) m/uL Hgb 20.1 H* (13.0-17.5) gm/dL Hct 61.9 H* (39.0-53.0) % MCV 101.4 H (80.0-100.0) fL Plt Count 136 L (150-450) k/uL Lymphocytes # 0.1 L (1.0-4.8) k/uL Sodium 135 L (137-145) mmol/L Carbon Dioxide 13 L (22-30) mmol/L BUN 106 H* (9-20) mg/dL Creatinine 4.33 H (0.66-1.25) mg/dL Glucose 130 H (74-99) mg/dL Albumin 3.2 L (3.5-5.0) g/dL Urine Protein 2+ H (Negative) Urine Blood Moderate H (Negative) Ur Leukocyte Esterase Large H (Negative) Urine RBC 28 H (0-5) /hpf Urine WBC >182 H (0-5) /hpf Urine WBC Clumps Many H (None) /hpf
[2020-09-21] MEDS ORDERED: NON FORMULARY DRUG (Omega-3 Fatty Acids/Fish Oil [Fish Oil 1,000 Mg Softgel] 1 EACH Capsul PO SCH (09:00)
[2020-09-21] MEDS ORDERED: CRANBERRY PO SCH (09:00)
[2020-09-21 09:29] LABS: HCT 24.5 % (39.6-50.0); HGB 7.7 g/dL (13.0-17.0); MCH 33.9 pg (27.0-32.0); MCHC 31.4 g/dL (32.0-37.0); MCV 107.9 fL (80.0-97.0); Mean Platelet Volume 8.9 fL (9.5-12.2); Platelet Count 310 X 10*3/uL (140-440); RBC 2.27 X 10*6/uL (4.40-5.60); RDW 12.7 % (11.5-14.5); WBC 5.52 X 10*3/uL (4.50-10.00)
[2020-09-21] MEDS: MAGNESIUM OXIDE 400 MG TAB PO SCH (09:47)
[2020-09-21] MEDS: MULTIVITAMINS, THERA 1 EACH TAB PO SCH (09:47)
[2020-09-21] MEDS: CYANOCOBALAMIN 500 MCG TAB PO SCH ×2 (09:47→20:13)
[2020-09-21] MEDS: ASPIRIN 81 MG PO SCH (09:47)
[2020-09-21] MEDS: METOPROLOL TARTRATE 25 MG TAB PO SCH ×2 (09:47→22:25)
[2020-09-21] MEDS: ZINC SULFATE 220 MG CAP PO SCH (09:47)
[2020-09-21] MEDS: TAMSULOSIN 0.4 MG CAP.ER.24H PO SCH (09:48)
[2020-09-21] MEDS: PANTOPRAZOLE 40 MG TABLET PO SCH (09:48)
[2020-09-21] MEDS: FLECAINIDE 50 MG TAB PO SCH ×2 (09:48→22:27)
[2020-09-21] MEDS: SODIUM CHLORIDE 0.9% 1,000 ML IV SCH (09:55)
[2020-09-21] MEDS ORDERED: MINERAL OIL 133 ML ENEMA RECTAL STA (10:15)
--- NOTE | 2020-09-21 10:26 | CONS ---
CONSULTATION REASON FOR CONSULTATION: Renal failure. HISTORY OF PRESENT ILLNESS: Patient is an 89-year-old male who was brought in to the hospital with history of nausea, vomiting and diarrhea. Patient is unable to give a detailed history at this time. He states he is having significant pain in his rectal area and has not been able to have a bowel movement. CT scan done in the ER showed evidence of severe bilateral hydronephrosis and moderate to large stool within the sigmoid colon and rectum. Rectum was about 7.5 cm wide. The patient had significant urine retention and he had a Kaiser catheter placed yesterday. He currently has milky urine in his Kaiser bag. Serum creatinine was 4.3 mg/dL yesterday. We do not have any labs from today. Previous creatinine noted at 2.4 on 06/11/2020. Blood pressure has been on the lower side with systolic around 104-101 mmHg. No history of NSAIDs on ZITA inhibitors or angiotensin receptor blockers on the med list. PAST MEDICAL HISTORY: Significant for history of prostatic cancer, previous history of obstructive uropathy, recurrent kidney stones, recurrent urinary tract infections, atrial fibrillation, chronic back pain. PAST SURGICAL HISTORY: Appendectomy, hernia repair, lithotripsy, left knee surgery, colonoscopy, circumcision. SOCIAL HISTORY: Negative for smoking, drug abuse or alcohol abuse. MEDICATIONS: Medications prior to admission included: Vitamin B12, flecainide, Lopressor, Flomax, magnesium, multivitamins, and zinc, fish oil. ALLERGIES: INCLUDE LASIX, REVIEW OF SYSTEMS: As per HPI. Other systems negative. EXAMINATION: Comfortable, awake, not in any acute distress. He is complaining of pain in his rectal area. The blood pressure is 101/57, heart rate 96 per minute. He is afebrile. Examination of the heart S1, S2. Examination of lungs, decreased breath sounds at bases. Abdomen is soft. Mild tenderness noted in the lower abdomen. Exam of lower extremities shows no evidence of edema. TARP REPAIRER exam grossly intact. LABS: Show sodium 135, potassium 4.5, chloride 107, CO2 is 13, BUN 106, serum creatinine 4.3 on 09/20/2020. Hemoglobin 20.1 which is probably not accurate and repeat reading was 7.7 today. No active bleeding noted. UA shows protein 2+, moderate blood, WBCs more than 182. The PCR for coronavirus is negative. ASSESSMENT: 1. Acute kidney injury mostly obstructive uropathy currently with indwelling Kaiser catheter and fair urine output. We will repeat labs today and continue with the Kaiser catheter. Continue IV fluids. 2. Metabolic acidosis, anion gap secondary to renal failure as well as diarrhea. We will start bicarb drip and repeat labs in a.m. 3. Fecal impaction, constipation. 4. Anemia. No active bleeding noted. Check iron profile. 5. Chronic kidney disease NKF stage IV. Previous creatinine 2.4 on 06/11/2020. Etiology likely nephrosclerosis, chronic obstructive uropathy. 6. Bilateral hydronephrosis. There may be an acute component, but I believe the patient has had previous obstructive uropathy as well and has been evaluated by Urology during admission in May. At that time, there were no plans for intervention as the hydronephrosis was chronic. PLAN: Add IV bicarb. Repeat labs today and then again in a.m. Encourage increased oral intake. Treat fecal impaction. Thank you for this consultation. Will continue to follow the patient with you during his hospitalization. MMODL / IJN: [id number] /
[2020-09-21] MEDS: DEXTROSE 5% IN WATER 1,000 ML with SODIUM BICARB (1 MEQ/ML) 150 ML IV SCH ×2 (10:45→21:38)
--- NOTE | 2020-09-21 10:57 | P.GSCN ---
History of Present Illness Consult date: 09/20/20 History of present illness: 89 o male, former patient of Dr Gilbert. The patient had ebrt for prostate cancer in [place] several years ago He is admitted this visit for dehydration and arf on crf. the patient has known problems with voiding, chronic bilateral hydronephrosis is secondary to a thickened bladder and perhaps some scarring of the ureters form the ebrt. It was decided not to treat this last visit because the hydro is severe and chronic. Stents wouldnot improve his overall renal function.. He again had the hydro identified on a ct scan. Review of Systems All systems: negative - Constitutional Denies fever, Denies weight loss - EENT Eyes: denies blurred vision Ears, nose, mouth and throat: Denies dysphagia - Cardiovascular Denies chest pain, Denies shortness of breath - Respiratory Denies cough, Denies 7 - Gastrointestinal Reports as per HPI - Genitourinary Denies dysuria, Denies hematuria - Integumentary Denies rash, Denies unusual bruising - Neurological Denies headaches, Denies syncope - Hematologic/Lymphatic Denies easy bleeding, Denies easy bruising Past Medical History Past Medical History: Atrial Fibrillation, Cancer, Hypertension, Prostate Disorder, Renal Disease Additional Past Medical History / Comment(s): Prosate cancer with radiation, kidney stones passed on his own and surgically removed, UTIs, chronic low back pain, occasional sinus problems. [place]. History of Any Multi-Drug Resistant Organisms: MRSA Year Discovered:: 2018 MDRO Source:: urine? family/pt unsure Past Surgical History: Appendectomy, Hernia Repair, Orthopedic Surgery Additional Past Surgical History / Comment(s): Lithotripsy, hiatal hernia repair, L knee open surgery to "clean it out", colonoscopy, circumcism later in life d/t UTIs. Past Anesthesia/Blood Transfusion Reactions: No Reported Reaction Past Psychological History: No Psychological Hx Reported Smoking Status: Never smoker Past Alcohol Use History: None Reported Past Drug Use History: None Reported - Past Family History Father Family Medical History: Hypertension Additional Family Medical History / Comment(s): Father at age 82 from old age. Mother Additional Family Medical History / Comment(s): Mother at age 82 and was in a coma at the time. Patient is unsure of cause of her or causative coma. Brother(s) Additional Family Medical History / Comment(s): Patient has 1 brother that is . He is not know any of his medical history. Patient does not have any sisters. Patient has 4 daughters and 4 sons with no major medical problems. Medications and Allergies Home Medications Medication Instructions Recorded Confirmed Type Cyanocobalamin [Vitamin B-12] 500 mcg PO BID 05/01/19 09/20/20 History Flecainide Acetate 50 mg PO Q12H 05/01/19 09/20/20 History Metoprolol Tartrate [Lopressor] 25 mg PO BID 05/01/19 09/20/20 History Tamsulosin [Flomax] 0.4 mg PO DAILY 05/01/19 09/20/20 History Magnesium Oxide 420mg 420 mg PO DAILY 03/12/20 09/20/20 History Cranberry(Unknown Dose) 1 tab PO DAILY 06/02/20 09/20/20 History Aspirin 81 mg PO DAILY 09/20/20 09/20/20 History Multivitamins, Thera [Multivitamin 1 tab PO DAILY 09/20/20 09/20/20 History (formulary)] [place]-3 Fatty Acids/Fish Oil [Fish 2 tab PO DAILY 09/20/20 09/20/20 History Oil 1,000 mg Softgel] Zinc 50 mg PO DAILY 09/20/20 09/20/20 History Allergies Allergy/AdvReac Type Severity Reaction Status Date / Time furosemide [From Lasix] Allergy "urinary Verified 09/20/20 15:26 incontinence" goserelin Allergy "hot Verified 09/20/20 15:26 flashes" Surgical - Exam Vital Signs Temp Pulse Resp BP Pulse Ox 98 F 106 H 18 95/62 99 09/20/20 11:40 09/20/20 11:40 09/20/20 11:40 09/20/20 11:40 09/20/20 11:40 - General well nourished - Eyes PERRL - ENT decreased hearing - Neck trachea midline - Respiratory normal expansion, normal respiratory effort - Cardiovascular Rhythm: regular - Abdomen Abdomen: soft, non tender - Musculoskeletal normal posture - Psychiatric oriented to time, oriented to person, oriented to place, speech is normal, memory intact Results - Labs 09/21/20 06:06 09/20/20 12:50 Abnormal Lab Results - Last 24 Hours (Table) 09/20/20 09/20/20 09/20/20 Range/Units 12:50 12:50 12:50 WBC 2.1 L (3.8-10.6) k/uL RBC 6.10 H (4.30-5.90) m/uL Hgb 20.1 H* (13.0-17.5) gm/dL Hct 61.9 H* (39.0-53.0) % MCV 101.4 H (80.0-100.0) fL Plt Count 136 L (150-450) k/uL Lymphocytes # 0.1 L (1.0-4.8) k/uL Sodium 135 L (137-145) mmol/L Carbon Dioxide 13 L (22-30) mmol/L BUN 106 H* (9-20) mg/dL Creatinine 4.33 H (0.66-1.25) mg/dL Glucose 130 H (74-99) mg/dL Albumin 3.2 L (3.5-5.0) g/dL Urine Protein 2+ H (Negative) Urine Blood Moderate H (Negative) Ur Leukocyte Esterase Large H (Negative) Urine RBC 28 H (0-5) /hpf Urine WBC >182 H (0-5) /hpf Urine WBC Clumps Many H (None) /hpf Diabetes panel 09/20/20 Range/Units 12:50 Sodium 135 L (137-145) mmol/L Potassium 4.5 (3.5-5.1) mmol/L Chloride 107 (98-107) mmol/L Carbon Dioxide 13 L (22-30) mmol/L BUN 106 H* (9-20) mg/dL Creatinine 4.33 H (0.66-1.25) mg/dL Glucose 130 H (74-99) mg/dL Calcium 9.0 (8.4-10.2) mg/dL AST 33 (17-59) U/L ALT 21 (4-49) U/L Alkaline Phosphatase 88 (38-126) U/L Total Protein 6.4 (6.3-8.2) g/dL Albumin 3.2 L (3.5-5.0) g/dL Calcium panel 09/20/20 Range/Units 12:50 Calcium 9.0 (8.4-10.2) mg/dL Albumin 3.2 L (3.5-5.0) g/dL Pituitary panel 09/20/20 Range/Units 12:50 Sodium 135 L (137-145) mmol/L Potassium 4.5 (3.5-5.1) mmol/L Chloride 107 (98-107) mmol/L Carbon Dioxide 13 L (22-30) mmol/L BUN 106 H* (9-20) mg/dL Creatinine 4.33 H (0.66-1.25) mg/dL Glucose 130 H (74-99) mg/dL Calcium 9.0 (8.4-10.2) mg/dL Adrenal panel 09/20/20 Range/Units 12:50 Sodium 135 L (137-145) mmol/L Potassium 4.5 (3.5-5.1) mmol/L Chloride 107 (98-107) mmol/L Carbon Dioxide 13 L (22-30) mmol/L BUN 106 H* (9-20) mg/dL Creatinine 4.33 H (0.66-1.25) mg/dL Glucose 130 H (74-99) mg/dL Calcium 9.0 (8.4-10.2) mg/dL Total Bilirubin 0.4 (0.2-1.3) mg/dL AST 33 (17-59) U/L ALT 21 (4-49) U/L Alkaline Phosphatase 88 (38-126) U/L Total Protein 6.4 (6.3-8.2) g/dL Albumin 3.2 L (3.5-5.0) g/dL - Imaging CT scan - abdomen: report reviewed, image reviewed CT scan - pelvis: report reviewed, image reviewed Assessment and Plan Assessment: Impression: Bilateral hydronephrosis ,chronic secondary to radiation therapy for prostate cancer several years ago. Acute and chronic renal failure. Recommendations: From urologic standpoint there is nothing further that can be d one that will aid in the hydronephrosis. It is chronic and irreversible. His baseline creatinine is in the mid [address] range and will remain that way. Stents and nephrostomy tubes will really not make any difference. Nothing further urologic needs to be done at this point in time.
--- NOTE | 2020-09-21 13:48 | P.PN ---
Subjective Progress Note Date: 09/21/20 HISTORY OF PRESENT ILLNESS 89-year-old male one of for office patient who was in the hospital last time in 06/03/2020 for generalized weakness and acute GI bleed the time. Patient is known to have history of prostate cancer along with obstructive uropathy and recurrent kidney stone with recurrent UTI. Patient was treated aggressively the time he continued to have significant anemia requiring multiunit blood transfusion at the time. Also developed to have significant urinary retention had indwelling catheter. Was seen and evaluated by urology found to have acute kidney injury with bilateral hydronephrosis and was discharged to [facility] subacute rehab and was doing some outpatient physical therapy afterward. Patient brought to demurs department today with several episode of diarrhea along with nausea vomiting he is not able to tolerate any food or fluid has lost more weight ambulate has been having more tarry stool at the time with slight increase abdominal pain along with the cramps and worsening symptoms. He is known to have history of A. fib, multiple stone, hydronephrosis with chronic kidney disease, history of prostate cancer. Patient is hard hearing is difficult to collect anymore information. Patient abdominal pain and pelvis surprisingly shows severe bilateral hydronephrosis and hydroureter the bladder showed circumferential thickened and mildly inflamed wall with appearance of thickened internal septation with gout clear etiology neoplastic etiology along with dissection of urinary to bladder wall or intramural abscess are consideration. Moderate to large stool within the sigmoid: Had rectum is distended over 7.5 cm wide with the stool pneumocytes some thickening of the wall finding could be b2b sales representative for fecal impaction along with venous congestion from excessive rectal distention versus colitis lab this time surprisingly showed low white blood cell along with significant polycythemia with hemoglobin of 20.1 hematocrit 61.9 which is surprisingly came significantly high compared to May patient was anemic at the time. Surprisingly patient is in acute kidney failure with BUN 106 creatinine 4.3 with GFR running around 11 o nly with the finding on his urine test showed significant white blood cell along with red blood cell and leukocyte patient be treated for infection as well. Notify urology with the current problem 09/21: Patient has been seen by Dr. Howard regarding bilateral hydronephrosis, chronic secondary to radiation therapy for prostate cancer several years ago. No further treatment for hydronephrosis which is chronic and irreversible. Patient has been seen by nephrology and bicarb drip has been started. Patient to increase oral intake. Ensure has been added for 3 times daily. Regarding fecal impaction, patient is scheduled for mineral oil enema today. Repeat blood work reveals WBC 5.5, hemoglobin 7.7, platelet count 310. Because this seems to be his baseline lab work and yesterday's were vastly abnormal, blood work done yesterday is considered to be an error. Morning chemistry panel is not available at 1:29 in the afternoon. Urine culture has been received. Repeat blood work ordered for tomorrow. REVIEW OF SYSTEMS Constitutional: No fever, no chills, no night sweats. Significant weight loss, weakness fatigue and lethargy and daytime sleepiness with debility not been able to ambulate and walk. EENT: No headache. No blurred vision or double vision, no loss of vision. No loss of Hearing, no ringing in the ears, positive dizziness. No nasal drainage or congestion. No epistaxis. No sore throat. Lungs: Significant shortness of breath with cough wheezes. Cardiovascular: Positive PND orthopnea palpitations and along with lightheadedness. No syncopal episodes. Abdominal: Abdominal discomfort with nausea no vomiting has a significant change in bowel habits along with worsening appetite Genitourinary: Hematuria with frequency urgency burning discomfort with history of prostate cancer. Musculoskeletal: No myalgias. No muscle weakness, no gait dysfunction, no frequent falls. Positive back and neck pain. Integumentary: No wounds, no lesions. No rash or pruritus. No unusual bruising. No change in hair or nails. Neurologic: No aphasia. No facial droop. No change in mentation. No head injury. No headache. No paralysis. No paresthesia. Psychiatric: No depression. No anxiety. No mood swings. Endocrine: No abnormal blood sugars. No weight change. No excessive sweating or thirst. No cold intolerance. PHYSICAL EXAMINATION Gen: This is elderly, 89-year-old thin male. He is laying in bed cannot hear well and not moving well does not look in any respiratory distress. HEENT: Head is atraumatic, normocephalic. Pupils equal, round. Sclerae is anicteric. NECK: Supple. No JVD. No lymphadenopathy. No thyromegaly. LUNGS: Decreased breath sound bilaterally HAS Mild Expiratory Wheezes and Crackles in the Bases Specially the Right Side. HEART: Irregular rate and rhythm. Positive systolic murmur with positive S3. ABDOMEN: Soft. Bowel sounds are present. Positive discomfort in the midepigastric area lower abdominal region area no rebound or rigidity. EXTREMITIES: No pedal edema. No calf tenderness. NEUROLOGICAL: Patient is awake, alert and oriented with slight confusion. Cranial nerves 2 through 12 are grossly intact. Positive generalized weakness or fatigue. ASSESSMENT AND PLAN 1. Acute abdominal pain secondary to hydronephrosis, acute kidney injury, UTI. 2. Chronic hydronephrosis. Urology consult appreciated. No plan for intervention. 3. Acute kidney injury with chronic kidney disease stage IV. Consult with nephrology appreciated. Patient's been started on bicarb drip, avoid hypotension, avoid nephrotoxic agents. 4. Polycythemia has been ruled out as lab work appears to be reported in error. 5. Recent history of GI bleed. Patient is off anticoagulation. 6. Paroxysmal atrial fibrillation. Continue Tambocor, metoprolol, off anticoagulation. 7. Anemia of recent acute blood loss and chronic disease. Monitor hemoglobin. 8. Metabolic acidosis. Patient's been started on bicarb drip. Repeat blood work is pending. 9. Fecal impaction. Mineral oil enema is scheduled for today. 10. Acute urinary tract infection infection. Rocephin 1 g IV piggyback daily. 11. History of prostate cancer with benign prostatic hypertrophy. Continue Flomax 0.4 mg daily. 12. Hypertension. Continue metoprolol tartrate 5 mg twice daily. 13. Atherosclerotic heart disease, stable. 14. Moderate protein calorie malnutrition. Patient started on ensure 3 times daily. 15. GI prophylaxis. Continue Protonix 40 mg oral daily. 16. DVT prophylaxis. Early ambulation, [place] oh. DISCHARGE PLAN TBD. PT and OT consults Impression and plan of care have been directed as dictated by the signing physician. Tena Silva nurse practitioner acting as scribe for signing physician. Objective - Vital Signs Vital signs: Vital Signs Temp 98 F 09/21/20 07:55 Pulse 96 09/21/20 07:55 Resp 16 09/21/20 07:55 BP 101/57 09/21/20 07:55 Pulse Ox 94 L 09/21/20 07:55 Intake & Output 09/20/20 09/21/20 09/21/20 18:59 06:59 18:59 Intake Total 675 Output Total 569 143 3187 Balance -100 -125 -1500 Weight 58.967 kg 58.967 kg Intake: Intake, IV Titration 675 Amount Sodium Chloride 0.9% 1, 675 000 ml @ 75 mls/hr IV . [id number] [facility] Rx#:[id number] Output: Urine 232 272 3135 Uretheral ([facility]) 100 Other: Voiding Method Indwelling Catheter - Labs CBC & Chem 7: 09/21/20 06:06 09/20/20 12:50 Labs: Abnormal Lab Results - Last 24 Hours (Table) 09/20/20 09/20/20 09/20/20 Range/Units 12:50 12:50 12:50 WBC 2.1 L (3.8-10.6) k/uL RBC 6.10 H (4.30-5.90) m/uL Hgb 20.1 H* (13.0-17.5) gm/dL Hct 61.9 H* (39.0-53.0) % MCV 101.4 H (80.0-100.0) fL MCH (27.0-32.0) pg MCHC (32.0-37.0) g/dL Plt Count 136 L (150-450) k/uL MPV (9.5-12.2) fL Lymphocytes # 0.1 L (1.0-4.8) k/uL Sodium 135 L (137-145) mmol/L Carbon Dioxide 13 L (22-30) mmol/L BUN 106 H* (9-20) mg/dL Creatinine 4.33 H (0.66-1.25) mg/dL Glucose 130 H (74-99) mg/dL Albumin 3.2 L (3.5-5.0) g/dL Urine Protein 2+ H (Negative) Urine Blood Moderate H (Negative) Ur Leukocyte Esterase Large H (Negative) Urine RBC 28 H (0-5) /hpf Urine WBC >182 H (0-5) /hpf Urine WBC Clumps Many H (None) /hpf 09/21/20 Range/Units 06:06 WBC (3.8-10.6) k/uL RBC 2.27 L (4.30-5.90) m/uL Hgb 7.7 L (13.0-17.5) gm/dL Hct 24.5 L (39.0-53.0) % MCV 107.9 H (80.0-100.0) fL MCH 33.9 H (27.0-32.0) pg MCHC 31.4 L (32.0-37.0) g/dL Plt Count (150-450) k/uL MPV 8.9 L (9.5-12.2) fL Lymphocytes # (1.0-4.8) k/uL Sodium (137-145) mmol/L Carbon Dioxide (22-30) mmol/L BUN (9-20) mg/dL Creatinine (0.66-1.25) mg/dL Glucose (74-99) mg/dL Albumin (3.5-5.0) g/dL Urine Protein (Negative) Urine Blood (Negative) Ur Leukocyte Esterase (Negative) Urine RBC (0-5) /hpf Urine WBC (0-5) /hpf Urine WBC Clumps (None) /hpf
--- NOTE | 2020-09-21 13:53 | P.GSCN ---
History of Present Illness Consult date: 09/21/20 History of present illness: CHIEF COMPLAINT: Rectal pain HISTORY OF PRESENT ILLNESS: This is a 89-year-old male with a known history of prostate cancer, kidney stones, GI bleed, chronic kidney disease and atrial fibrillation not on anticoagulation. Patient presents to the hospital with complaints of rectal pain. He reports that he has not had a bowel movement in over 3 days. He reports that he had been eating. He denies any nausea or vomiting. Denies any abdominal pain. He had a computed tomography scan of the abdomen and pelvis that had shown severe bilateral hydronephrosis and hydroureter. The bladder shows circumferentially thickened and mildly limited wall with the appearance of thickened internal septation. Exact etiology of this. Unclear. Moderate to large stool within the sigmoid colon and rectum. Rectum is distended up to 7.5 cm wide with stool and demonstrates associated wall thickening. Findings could represent fecal impaction with venous congestion from the excessive rectal distention versus colitis. Surgical service consulted regards to patient's fecal impaction. PAST MEDICAL HISTORY: See list. PAST SURGICAL HISTORY: See list. MEDICATIONS: See list. ALLERGIES: See list. SOCIAL HISTORY: No illicit drug use. REVIEW OF SYSTEMS: CONSTITUTIONAL: Denies fever or chills. HEENT: Denies blurred vision, vision changes, or eye pain. Denies hemoptysis ENDOCRINE: Denies heat or cold intolerance. CARDIOVASCULAR: Denies chest pain or pressure. RESPIRATORY: No shortness of breath. GASTROINTESTINAL: Please refer to HPI NEURO: Denies history of seizures. PSYCH: No depression or suicidal ideation HEMATOLOGIC: Denies bleeding disorders. LYMPHATIC: The patient denies any lumps and bumps around the neck. GENITOURINARY: Denies any blood in urine or increased urinary frequency. MUSCULOSKELETAL: Denies myalgias. Denies joint swelling. Denies decreased range of motion beyond patients baseline. SKIN: Denies pruitis. Denies rash. PHYSICAL EXAM: VITAL SIGNS: Reviewed GENERAL: Well-developed in no acute distress. HEENT: No sclera icterus. Extraocular movements grossly intact. Moist buccal mucosa. Head is atraumatic, normocephalic. Hears conversational speech. No nasal drainage. NECK: Supple without lymphadenopathy. CHEST: Non-labored respirations and equal bilateral excursions. CARDIOVASCULAR: Palpable 2+ radial pulses. ABDOMEN: Soft. Nondistended. Nontender MUSCULOSKELETAL: No clubbing or cyanosis. NEUROLOGIC: No focal or lateralizing signs. Cranial nerves II through XII grossly intact. PSYCH: Appropriate affect. Alert and oriented to person, place and time. SKIN: Well perfused. Good skin turgor. LABORATORY DATA: WBC 5.5 to hemoglobin 7.7 platelets 310 Sodium 135 potassium 4.5 creatinine 4.33 lactic 0.7 LFTs normal lipase normal Urinalysis positive for UTI Covid not detected IMAGING: computed tomography scan of the abdomen and pelvis that had shown severe bilateral hydronephrosis and hydroureter. The bladder shows circumferentially thickened and mildly limited wall with the appearance of thickened internal septation. Exact etiology of this. Unclear. Moderate to large stool within the sigmoid colon and rectum. Rectum is distended up to 7.5 cm wide with stool and demonstrates associated wall thickening. Findings could represent fecal impaction with venous congestion from the excessive rectal distention versus colitis. ASSESSMENT: 1. Rectal pain with fecal impaction noted on CAT scan 2. Bilateral hydronephrosis evaluated by urology 3. Acute kidney injury 4. Chronic kidney disease 5. History of prostate cancer status post radiation treatment PLAN: -Recommend conservative management -Mineral oil Fleet ordered for fecal impaction Thank you for this consultation Physician Extension Division Director note has been reviewed by physician. Signing provider agrees with the documented findings, assessment, and plan of care. Past Medical History Past Medical History: Atrial Fibrillation, Cancer, Hypertension, Prostate Disorder, Renal Disease Additional Past Medical History / Comment(s): Prosate cancer with radiation, kidney stones passed on his own and surgically removed, UTIs, chronic low back pain, occasional sinus problems. B[place] BAND. History of Any Multi-Drug Resistant Organisms: MRSA Year Discovered:: 2018 MDRO Source:: urine? family/pt unsure Past Surgical History: Appendectomy, Hernia Repair, Orthopedic Surgery Additional Past Surgical History / Comment(s): Lithotripsy, hiatal hernia repair, L knee open surgery to "clean it out", colonoscopy, circumcism later in life d/t UTIs. Past Anesthesia/Blood Transfusion Reactions: No Reported Reaction Past Psychological History: No Psychological Hx Reported Smoking Status: Never smoker Past Alcohol Use History: None Reported Past Drug Use History: None Reported - Past Family History Father Family Medical History: Hypertension Additional Family Medical History / Comment(s): Father at age 82 from old age. Mother Additional Family Medical History / Comment(s): Mother at age 82 and was in a coma at the time. Patient is unsure of cause of her or causative coma. Brother(s) Additional Family Medical History / Comment(s): Patient has 1 brother that is . He is not know any of his medical history. Patient does not have any sisters. Patient has 4 daughters and 4 sons with no major medical problems. Medications and Allergies Home Medications Medication Instructions Recorded Confirmed Type Cyanocobalamin [Vitamin B-12] 500 mcg PO BID 05/01/19 09/20/20 History Flecainide Acetate 50 mg PO Q12H 05/01/19 09/20/20 History Metoprolol Tartrate [Lopressor] 25 mg PO BID 05/01/19 09/20/20 History Tamsulosin [Flomax] 0.4 mg PO DAILY 05/01/19 09/20/20 History Magnesium Oxide 420mg 420 mg PO DAILY 03/12/20 09/20/20 History Cranberry(Unknown Dose) 1 tab PO DAILY 06/02/20 09/20/20 History Aspirin 81 mg PO DAILY 09/20/20 09/20/20 History Multivitamins, Thera [Multivitamin 1 tab PO DAILY 09/20/20 09/20/20 History (formulary)] [place]-3 Fatty Acids/Fish Oil [Fish 2 tab PO DAILY 09/20/20 09/20/20 History Oil 1,000 mg Softgel] Zinc 50 mg PO DAILY 09/20/20 09/20/20 History Allergies Allergy/AdvReac Type Severity Reaction Status Date / Time furosemide [From Lasix] Allergy "urinary Verified 09/20/20 15:26 incontinence" goserelin Allergy "hot Verified 09/20/20 15:26 flashes" Surgical - Exam Vital Signs Temp Pulse Resp BP Pulse Ox 98 F 106 H 18 95/62 99 09/20/20 11:40 09/20/20 11:40 09/20/20 11:40 09/20/20 11:40 09/20/20 11:40 Results - Labs 09/21/20 06:06 09/20/20 12:50 Abnormal Lab Results - Last 24 Hours (Table) 09/20/20 09/21/20 Range/Units 12:50 06:06 RBC 2.27 L (4.40-5.60) X 10*6/uL Hgb 7.7 L (13.0-17.0) g/dL Hct 24.5 L (39.6-50.0) % MCV 107.9 H (80.0-97.0) fL MCH 33.9 H (27.0-32.0) pg MCHC 31.4 L (32.0-37.0) g/dL MPV 8.9 L (9.5-12.2) fL Urine Protein 2+ H (Negative) Urine Blood Moderate H (Negative) Ur Leukocyte Esterase Large H (Negative) Urine RBC 28 H (0-5) /hpf Urine WBC >182 H (0-5) /hpf Urine WBC Clumps Many H (None) /hpf
[2020-09-21 14:16] LABS: African American GFR (CKD) 17.7 (60.0-200.0); Albumin 2.9 g/dL (3.80-4.90); Albumin/Globulin Ratio 1.32 (1.60-3.17); Anion Gap 10.6 mmol/L (4.00-12.00); BUN/Creat Ratio 26.76 Ratio (12.00-20.00); Calcium 7.8 mg/dL (8.7-10.3); Carbon Dioxide 14.4 mmol/L (21.6-31.8); Globulin 2.2 g/dL (1.6-3.3); Non-African American GFR(CKD) 15.2 (60.0-200.0); Potassium 4.3 mmol/L (3.5-5.5); Total Bilirubin 0.2 mg/dL (0.2-1.2); Total Protein 5.1 g/dL (6.2-8.2)
[2020-09-22] MEDS: ASPIRIN 81 MG PO SCH (07:22)
[2020-09-22] MEDS: PANTOPRAZOLE 40 MG TABLET PO SCH (07:22)
[2020-09-22] MEDS: MULTIVITAMINS, THERA 1 EACH TAB PO SCH (07:23)
[2020-09-22] MEDS: MAGNESIUM OXIDE 400 MG TAB PO SCH (07:23)
[2020-09-22] MEDS: METOPROLOL TARTRATE 25 MG TAB PO SCH ×2 (07:23→21:08)
[2020-09-22] MEDS: TAMSULOSIN 0.4 MG CAP.ER.24H PO SCH (07:23)
[2020-09-22] MEDS: ZINC SULFATE 220 MG CAP PO SCH (07:23)
[2020-09-22] MEDS: CYANOCOBALAMIN 500 MCG TAB PO SCH ×2 (07:23→21:27)
[2020-09-22] MEDS: FLECAINIDE 50 MG TAB PO SCH ×2 (07:24→21:27)
[2020-09-22] MEDS ORDERED: LACTULOSE 20 GM/30 ML CUP PO ONE (08:49)
[2020-09-22] MEDS ORDERED: MINERAL OIL 133 ML ENEMA RECTAL STA (08:49)
[2020-09-22] MEDS: DEXTROSE 5% IN WATER 1,000 ML with SODIUM BICARB (1 MEQ/ML) 150 ML IV SCH ×3 (09:54→22:49)
[2020-09-22 09:56] LABS: HCT 22.5 % (39.6-50.0); HGB 7.1 g/dL (13.0-17.0); MCH 33.5 pg (27.0-32.0); MCHC 31.6 g/dL (32.0-37.0); MCV 106.1 fL (80.0-97.0); Mean Platelet Volume 8.8 fL (9.5-12.2); Platelet Count 293 X 10*3/uL (140-440); RBC 2.12 X 10*6/uL (4.40-5.60); RDW 12.6 % (11.5-14.5); WBC 4.82 X 10*3/uL (4.50-10.00)
[2020-09-22 11:16] LABS: African American GFR (CKD) 24.4 (60.0-200.0); Albumin 2.6 g/dL (3.80-4.90); Albumin/Globulin Ratio 1.24 (1.60-3.17); Anion Gap 8.8 mmol/L (4.00-12.00); BUN/Creat Ratio 27.69 Ratio (12.00-20.00); Calcium 7.6 mg/dL (8.7-10.3); Carbon Dioxide 23.2 mmol/L (21.6-31.8); Globulin 2.1 g/dL (1.6-3.3); Non-African American GFR(CKD) 21.1 (60.0-200.0); Potassium 4.1 mmol/L (3.5-5.5); Total Bilirubin 0.1 mg/dL (0.2-1.2); Total Protein 4.7 g/dL (6.2-8.2)
--- NOTE | 2020-09-22 12:16 | P.PN ---
Subjective Progress Note Date: 09/22/20 HISTORY OF PRESENT ILLNESS 89-year-old male one of for office patient who was in the hospital last time in 06/03/2020 for generalized weakness and acute GI bleed the time. Patient is known to have history of prostate cancer along with obstructive uropathy and recurrent kidney stone with recurrent UTI. Patient was treated aggressively the time he continued to have significant anemia requiring multiunit blood transfusion at the time. Also developed to have significant urinary retention had indwelling catheter. Was seen and evaluated by urology found to have acute kidney injury with bilateral hydronephrosis and was discharged to [facility] subacute rehab and was doing some outpatient physical therapy afterward. Patient brought to demurs department today with several episode of diarrhea along with nausea vomiting he is not able to tolerate any food or fluid has lost more weight ambulate has been having more tarry stool at the time with slight increase abdominal pain along with the cramps and worsening symptoms. He is known to have history of A. fib, multiple stone, hydronephrosis with chronic kidney disease, history of prostate cancer. Patient is hard hearing is difficult to collect anymore information. Patient abdominal pain and pelvis surprisingly shows severe bilateral hydronephrosis and hydroureter the bladder showed circumferential thickened and mildly inflamed wall with appearance of thickened internal septation with gout clear etiology neoplastic etiology along with dissection of urinary to bladder wall or intramural abscess are consideration. 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 Surprisingly patient is in acute kidney failure with BUN 106 creatinine 4.3 with GFR running around 11 o nly with the finding on his urine test showed significant white blood cell along with red blood cell and leukocyte patient be treated for infection as well. Notify urology with the current problem 09/21: Patient has been seen by Dr. Howard regarding bilateral hydronephrosis, chronic secondary to radiation therapy for prostate cancer several years ago. No further treatment for hydronephrosis which is chronic and irreversible. Patient has been seen by nephrology and bicarb drip has been started. Patient to increase oral intake. Ensure has been added for 3 times daily. Regarding fecal impaction, patient is scheduled for mineral oil enema today. Repeat blood work reveals WBC 5.5, hemoglobin 7.7, platelet count 310. Because this seems to be his baseline lab work and yesterday's were vastly abnormal, blood work done yesterday is considered to be an error. Morning chemistry panel is not available at 1:29 in the afternoon. Urine culture has been received. Repeat blood work ordered for tomorrow. 09/22: Kaiser catheter was placed yesterday morning for urinary retention. Regarding fecal impaction, patient had a good bowel movement yesterday and a small one this morning. PT and OT are working with the patient and he has a 1 person Quynh cyst. Patient does have old DME in place at home and most likely will manage fine. Dr. Bess contacted the patient's son and updated regarding p ninoska's condition, family will decide on discharge planning for tomorrow. Patient is afebrile, heart rate 79, blood pressure 92/52, pulse ox 96% on room air. Repeat blood work reveals WBC 4.8, hemoglobin 7.1, platelet count 293. Electrolytes are normal. BUN 72 and creatinine improved to 2.6. Calcium 7.6, total bilirubin 0.1 and liver function tests are normal. Urine culture is in progress. Ferrlecit infusion ordered for today. Repeat blood work for tomorrow. Anticipate possible discharge tomorrow or Sunday. REVIEW OF SYSTEMS Constitutional: No fever, no chills, no night sweats. Significant weight loss, weakness fatigue and lethargy and daytime sleepiness with debility not been able to ambulate and walk. EENT: No headache. No blurred vision or double vision, no loss of vision. No loss of Hearing, no ringing in the ears, positive dizziness. No nasal drainage or congestion. No epistaxis. No sore throat. Lungs: Significant shortness of breath with cough wheezes. Cardiovascular: Positive PND orthopnea palpitations and along with lightheadedness. No syncopal episodes. Abdominal: Abdominal discomfort with nausea no vomiting has a significant change in bowel habits along with worsening appetite Genitourinary: Hematuria with frequency urgency burning discomfort with history of prostate cancer. Musculoskeletal: No myalgias. No muscle weakness, no gait dysfunction, no frequent falls. Positive back and neck pain. Integumentary: No wounds, no lesions. No rash or pruritus. No unusual bruising. No change in hair or nails. Neurologic: No aphasia. No facial droop. No change in mentation. No head injury. No headache. No paralysis. No paresthesia. Psychiatric: No depression. No anxiety. No mood swings. Endocrine: No abnormal blood sugars. No excessive sweating or thirst. No cold intolerance. PHYSICAL EXAMINATION Gen: This is elderly, 89-year-old thin male. He is laying in bed cannot hear well and not moving well does not look in any respiratory distress. HEENT: Head is atraumatic, normocephalic. Pupils equal, round. Sclerae is anicteric. NECK: Supple. No JVD. No lymphadenopathy. No thyromegaly. LUNGS: Decreased breath sound bilaterally. HEART: Irregular rate and rhythm. Positive systolic murmur with positive S3. ABDOMEN: Soft. Bowel sounds are present. Positive discomfort in the midep igastric area lower abdominal region area no rebound or rigidity. EXTREMITIES: No pedal edema. No calf tenderness. NEUROLOGICAL: Patient is awake, alert and oriented with slight confusion. Cranial nerves 2 through 12 are grossly intact. Positive generalized weakness or fatigue. ASSESSMENT AND PLAN 1. Acute abdominal pain secondary to hydronephrosis, acute kidney injury, UTI. 2. Chronic hydronephrosis. Urology consult appreciated. No plan for intervention. 3. Acute kidney injury with chronic kidney disease stage IV. Consult with nephrology appreciated. Patient's been started on bicarb drip, avoid hypotension, avoid nephrotoxic agents. 4. Polycythemia has been ruled out as lab work appears to be reported in error. 5. Recent history of GI bleed. Patient is off anticoagulation. 6. Paroxysmal atrial fibrillation. Continue Tambocor, metoprolol, off anticoagulation. 7. Anemia of recent acute blood loss and chronic disease. Monitor hemoglobin. Ferrlecit infusion 1 8. Metabolic acidosis. Patient's been started on bicarb drip. Repeat blood work. 9. Fecal impaction. Mineral oil enema is scheduled for today. 10. Acute urinary tract infection infection. Rocephin 1 g IV piggyback daily. 11. History of prostate cancer with benign prostatic hypertrophy. Continue Flomax 0.4 mg daily. 12. Hypertension. Continue metoprolol tartrate 5 mg twice daily. 13. Atherosclerotic heart disease, stable. 14. Moderate protein calorie malnutrition. Patient started on ensure 3 times daily. 15. GI prophylaxis. Continue Protonix 40 mg oral daily. 16. DVT prophylaxis. Early ambulation, [place]. DISCHARGE PLAN TBD. PT and OT consults area family will discuss and make determination tomorrow. Impression and plan of care have been directed as dictated by the signing physician. Tena Silva nurse practitioner acting as scribe for signing physician. Objective - Vital Signs Vital signs: Vital Signs Temp 98 F 09/22/20 08:00 Pulse 79 09/22/20 08:00 Resp 18 09/22/20 08:00 BP 92/52 09/22/20 08:00 Pulse Ox 96 09/22/20 08:00 Intake & Output 09/21/20 09/22/20 09/22/20 18:59 06:59 18:59 Intake Total 120 Output Total 2250 900 Balance -2130 -900 Intake: Oral 120 Output: Urine 2250 900 Other: Voiding Method Indwelling Catheter Indwelling Catheter - Labs CBC & Chem 7: 09/22/20 05:37 09/22/20 05:37 Labs: Abnormal Lab Results - Last 24 Hours (Table) 09/21/20 09/21/20 Range/Units 06:06 06:06 RBC 2.27 L (4.40-5.60) X 10*6/uL Hgb 7.7 L (13.0-17.0) g/dL Hct 24.5 L (39.6-50.0) % MCV 107.9 H (80.0-97.0) fL MCH 33.9 H (27.0-32.0) pg MCHC 31.4 L (32.0-37.0) g/dL MPV 8.9 L (9.5-12.2) fL Chloride 114 H (96-109) mmol/L Carbon Dioxide 14.4 L (21.6-31.8) mmol/L BUN 91.0 H (9.0-27.0) mg/dL Creatinine 3.4 H (0.6-1.5) mg/dL Est GFR (CKD-EPI)AfAm 17.7 L (60.0-200.0) Est GFR (CKD-EPI)NonAf 15.2 L (60.0-200.0) BUN/Creatinine Ratio 26.76 H (12.00-20.00) Ratio Calcium 7.8 L (8.7-10.3) mg/dL Total Protein 5.1 L (6.2-8.2) g/dL Albumin 2.90 L (3.80-4.90) g/dL Albumin/Globulin Ratio 1.32 L (1.60-3.17) g/dL Microbiology - Last 24 Hours (Table) 09/20/20 12:50 Urine Culture - Preliminary Urine,Voided
[2020-09-22] MEDS ORDERED: SODIUM FERRIC GLUCONAT-SUCROSE 125 MG in SODIUM CHLORIDE 0.9% 100 ML IVPB ONE (12:30)
--- NOTE | 2020-09-22 12:52 | P.PN ---
Subjective Progress Note Date: 09/22/20 CHIEF COMPLAINT: Rectal pain HISTORY OF PRESENT ILLNESS: Surgical service is following regards to patient's fecal impaction. Patient did have a bowel movement after the enema yesterday and then a small smear of the BM this morning. Patient is eating his breakfast. Denies any abdominal pain. Denies any nausea or vomiting. He is not complaining of rectal pain at this time. He's afebrile. WBC 4.8 to hemoglobin 7.1 creatinine 2.6 Medicine services anticipating discharge on Sunday PHYSICAL EXAM: VITAL SIGNS: Reviewed GENERAL: Well-developed in no acute distress. HEENT: No sclera icterus. Extraocular movements grossly intact. Moist buccal mucosa. Head is atraumatic, normocephalic. Hears conversational speech. No nasal drainage. NECK: Supple without lymphadenopathy. CHEST: Non-labored respirations and equal bilateral excursions. CARDIOVASCULAR: Palpable 2+ radial pulses. ABDOMEN: Soft. Nondistended. Nontender. MUSCULOSKELETAL: No clubbing or cyanosis. NEUROLOGIC: No focal or lateralizing signs. Cranial nerves II through XII grossly intact. PSYCH: Appropriate affect. Alert and oriented to person, place and time. SKIN: Well perfused. Good skin turgor. ASSESSMENT: 1. Rectal pain secondary to fecal impaction 2. Bilateral hydronephrosis evaluated by urology 3. Acute kidney injury 4. Chronic kidney disease 5. History of prostate cancer status post radiation treatment PLAN: -Repeat mineral oil enema with 1 dose of lactulose today -Continue conservative management Physician Checkout Supervisor note has been reviewed by physician. Signing provider agrees with the documented findings, assessment, and plan of care. Objective - Vital Signs Vital signs: Vital Signs Temp 98 F 09/22/20 08:00 Pulse 79 09/22/20 08:00 Resp 18 09/22/20 08:00 BP 92/52 09/22/20 08:00 Pulse Ox 96 09/22/20 08:00 Intake & Output 09/21/20 09/22/20 09/22/20 18:59 06:59 18:59 Intake Total 120 236 Output Total 2250 900 Balance -2130 -900 236 Intake: Oral 120 236 Output: Urine 2250 900 Other: Voiding Method Indwelling Catheter Indwelling Catheter Indwelling Catheter - Labs CBC & Chem 7: 09/22/20 05:37 09/22/20 05:37 Labs: Abnormal Lab Results - Last 24 Hours (Table) 09/21/20 09/22/20 09/22/20 Range/Units 06:06 05:37 05:37 RBC 2.12 L (4.40-5.60) X 10*6/uL Hgb 7.1 L (13.0-17.0) g/dL Hct 22.5 L (39.6-50.0) % MCV 106.1 H (80.0-97.0) fL MCH 33.5 H (27.0-32.0) pg MCHC 31.6 L (32.0-37.0) g/dL MPV 8.8 L (9.5-12.2) fL Chloride 114 H (96-109) mmol/L Carbon Dioxide 14.4 L (21.6-31.8) mmol/L BUN 91.0 H 72.0 H (9.0-27.0) mg/dL Creatinine 3.4 H 2.6 H (0.6-1.5) mg/dL Est GFR (CKD-EPI)AfAm 17.7 L 24.4 L (60.0-200.0) Est GFR (CKD-EPI)NonAf 15.2 L 21.1 L (60.0-200.0) BUN/Creatinine Ratio 26.76 H 27.69 H (12.00-20.00) Ratio Calcium 7.8 L 7.6 L (8.7-10.3) mg/dL Total Bilirubin 0.1 L (0.2-1.2) mg/dL Total Protein 5.1 L 4.7 L (6.2-8.2) g/dL Albumin 2.90 L 2.60 L (3.80-4.90) g/dL Albumin/Globulin Ratio 1.32 L 1.24 L (1.60-3.17) g/dL Microbiology - Last 24 Hours (Table) 09/20/20 12:50 Urine Culture - Preliminary Urine,Voided
--- NOTE | 2020-09-22 13:21 | PN ---
PROGRESS NOTE Patient is seen for followup for acute kidney injury and metabolic acidosis. He is maintained on bicarb drip. His renal function has improved with creatinine down to 2.6 from 4.3, and acidosis improved with CO2 up to 23.2 from 13. This morning patient states he is feeling better. He has not had any significant diarrhea. PHYSICAL EXAMINATION: Blood pressure 92/52, heart rate 79 per minute, he is afebrile. Examination of the heart S1, S2. Examination of the lungs, bilateral breath sounds are heard. Abdomen is soft, nontender. Examination of lower extremities shows no significant edema. 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 LAB: Show sodium 140, potassium 4.1, chloride 108, CO2 is 23.2, BUN 72, serum creatinine 2.6, hemoglobin 7.1 g/dL. ASSESSMENT: 1. Acute kidney injury, obstructive uropathy as well as prerenal, maintained on IV fluids with improvement in renal function. 2. Severe metabolic acidosis associated with renal failure as well as diarrhea, maintained on IV bicarb currently improved. 3. Fecal impaction. 4. Chronic kidney disease, stage 4. Previous creatinine 2.4 on 06/11/2020. Etiology nephrosclerosis or chronic obstructive uropathy. 5. Chronic bilateral hydronephrosis with possible acute component being followed by Urology and patient was evaluated by Urology in May during his previous admission with no further plans for intervention at that time. PLAN: Continue IV fluids. Can switch the bicarb drip to Ringer lactate tomorrow. Continue to encourage increased oral intake. MMODL / IJN: [id number] /
[2020-09-22 14:22] VITALS: BMI 19.8
[2020-09-23] MEDS: PANTOPRAZOLE 40 MG TABLET PO SCH (06:56)
[2020-09-23] MEDS: CYANOCOBALAMIN 500 MCG TAB PO SCH ×2 (06:56→20:53)
[2020-09-23] MEDS: MAGNESIUM OXIDE 400 MG TAB PO SCH (06:56)
[2020-09-23] MEDS: ASPIRIN 81 MG PO SCH (06:56)
[2020-09-23] MEDS: TAMSULOSIN 0.4 MG CAP.ER.24H PO SCH (06:57)
[2020-09-23] MEDS: ZINC SULFATE 220 MG CAP PO SCH (06:57)
[2020-09-23] MEDS: MULTIVITAMINS, THERA 1 EACH TAB PO SCH (06:57)
[2020-09-23] MEDS: METOPROLOL TARTRATE 25 MG TAB PO SCH ×2 (07:01→20:53)
[2020-09-23] MEDS: FLECAINIDE 50 MG TAB PO SCH ×2 (07:02→20:53)
[2020-09-23] MEDS: LACTATED RINGERS 1,000 ML IV SCH ×2 (09:57→23:50)
[2020-09-23 11:04] LABS: HCT 22.5 % (39.6-50.0); HGB 7.2 g/dL (13.0-17.0); MCV 106.1 fL (80.0-97.0); Mean Platelet Volume 8.8 fL (9.5-12.2); Platelet Count 311 X 10*3/uL (140-440); RBC 2.12 X 10*6/uL (4.40-5.60); RDW 12.6 % (11.5-14.5); WBC 5.82 X 10*3/uL (4.50-10.00)
--- NOTE | 2020-09-23 11:41 | PN ---
PROGRESS NOTE Patient is seen for followup for acute kidney injury. He had urine retention, currently has an indwelling [facility] catheter. He is also maintained on IV fluids. I do not see any labs back from today. Patient is maintained on a bicarb drip. PHYSICAL EXAMINATION: On examination today, he is comfortable. He is very hard of hearing. Blood pressure 102/40, heart rate 74 per minute, he is afebrile. Examination of the heart S1, S2. Examination of the lungs, bilateral breath sounds are heard. Abdomen is soft, nontender. Examination of lower extremities shows no evidence of edema. 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 LABS: Not available from today. Hemoglobin 7.2 g/dL. ASSESSMENT: 1. Acute kidney injury obstructive uropathy and prerenal, maintained on IV fluids and currently with a [facility] catheter with improving renal function. Check labs today. 2. Metabolic acidosis associated with renal failure and diarrhea, maintained on IV bicarb which we can discontinue now. 3. Fecal impaction. 4. Chronic kidney disease stage 4, previous creatinine about 2.4 in May of 2020 secondary to chronic obstructive uropathy and nephrosclerosis. 5. Chronic bilateral hydronephrosis, possible acute component, being followed by Urology as outpatient. Patient was recently hospitalized in May and was evaluated by Urology and at that time, there were no plans for intervention. Renal function had improved with IV hydration. PLAN: Discontinue IV bicarb. Check labs and switched to Ringer lactate. Encourage increased oral intake. MMODL / IJN: [id number] /
[2020-09-23 11:46] LABS: HCT 22.9 % (39.0-53.0); MCH 33.4 pg (25.0-35.0); MCHC 32.2 g/dL (31.0-37.0); MCV 103.5 fL (80.0-100.0); Macrocytosis Slight; Mean Platelet Volume 6.5; RBC 2.22 m/uL (4.30-5.90); RDW 13.2 % (11.5-15.5); WBC 5.5 k/uL (3.8-10.6)
--- NOTE | 2020-09-23 11:50 | P.PN ---
Subjective Progress Note Date: 09/23/20 HISTORY OF PRESENT ILLNESS 89-year-old male one of for office patient who was in the hospital last time in 06/03/2020 for generalized weakness and acute GI bleed the time. Patient is known to have history of prostate cancer along with obstructive uropathy and recurrent kidney stone with recurrent UTI. Patient was treated aggressively the time he continued to have significant anemia requiring multiunit blood transfusion at the time. Also developed to have significant urinary retention had indwelling catheter. Was seen and evaluated by urology found to have acute kidney injury with bilateral hydronephrosis and was discharged to [facility] subacute rehab and was doing some outpatient physical therapy afterward. Patient brought to demurs department today with several episode of diarrhea along with nausea vomiting he is not able to tolerate any food or fluid has lost more weight ambulate has been having more tarry stool at the time with slight increase abdominal pain along with the cramps and worsening symptoms. He is known to have history of A. fib, multiple stone, hydronephrosis with chronic kidney disease, history of prostate cancer. Patient is hard hearing is difficult to collect anymore information. Patient abdominal pain and pelvis surprisingly shows severe bilateral hydronephrosis and hydroureter the bladder showed circumferential thickened and mildly inflamed wall with appearance of thickened internal septation with gout clear etiology neoplastic etiology along with dissection of urinary to bladder wall or intramural abscess are consideration. 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 Surprisingly patient is in acute kidney failure with BUN 106 creatinine 4.3 with GFR running around 11 o nly with the finding on his urine test showed significant white blood cell along with red blood cell and leukocyte patient be treated for infection as well. Notify urology with the current problem 09/21: Patient has been seen by Dr. Howard regarding bilateral hydronephrosis, chronic secondary to radiation therapy for prostate cancer several years ago. No further treatment for hydronephrosis which is chronic and irreversible. Patient has been seen by nephrology and bicarb drip has been started. Patient to increase oral intake. Ensure has been added for 3 times daily. Regarding fecal impaction, patient is scheduled for mineral oil enema today. Repeat blood work reveals WBC 5.5, hemoglobin 7.7, platelet count 310. Because this seems to be his baseline lab work and yesterday's were vastly abnormal, blood work done yesterday is considered to be an error. Morning chemistry panel is not available at 1:29 in the afternoon. Urine culture has been received. Repeat blood work ordered for tomorrow. 09/22: [facility] catheter was placed yesterday morning for urinary retention. Regarding fecal impaction, patient had a good bowel movement yesterday and a small one this morning. PT and OT are working with the patient and he has a 1 person Quynh cyst. Patient does have old DME in place at home and most likely will manage fine. Dr. Bess contacted the patient's son and updated regarding p ninoska's condition, family will decide on discharge planning for tomorrow. Patient is afebrile, heart rate 79, blood pressure 92/52, pulse ox 96% on room air. Repeat blood work reveals WBC 4.8, hemoglobin 7.1, platelet count 293. Electrolytes are normal. BUN 72 and creatinine improved to 2.6. Calcium 7.6, total bilirubin 0.1 and liver function tests are normal. Urine culture is in progress. Ferrlecit infusion ordered for today. Repeat blood work for tomorrow. Anticipate possible discharge tomorrow or Sunday. 09/23: Yesterday, general surgery and did repeat mineral oil enema and lactulose. Patient has had bowel movements since. Has been afebrile, heart rate 74, blood pressure 102/40, pulse ox 96% on room air. Repeat blood work reveals WBC 5.8, hemoglobin 7.2, platelet count 311. Chemistry panel is not reported at 11:39 AM. Urine culture luminary report is positive for yeast species. Diflucan will be added as well as cardiac monitoring for monitoring of QT prolongation with fl ecainide. Patient remains on sodium bicarb drip with plan to switch to Ringer's lactate today. Patient's family has decided the patient will go to [facility] for subacute rehab. Plan will be for discharge to rehab tomorrow. REVIEW OF SYSTEMS Constitutional: No fever, no chills, no night sweats. Significant weight loss, weakness fatigue and lethargy and daytime sleepiness with debility not been able to ambulate and walk. EENT: No headache. No blurred vision or double vision, no loss of vision. No loss of Hearing, no ringing in the ears, positive dizziness. No nasal drainage or congestion. No epistaxis. No sore throat. Lungs: Significant shortness of breath with cough wheezes. Cardiovascular: Positive PND orthopnea palpitations and along with lightheadedness. No syncopal episodes. Abdominal: Denies abdominal pain, no nausea no vomiting reports constipation along with worsening appetite Genitourinary: Hematuria with frequency urgency burning discomfort with history of prostate cancer. Musculoskeletal: No myalgias. No muscle weakness, no gait dysfunction, no frequent falls. Positive back and neck pain. Integumentary: No wounds, no lesions. No rash or pruritus. No unusual bruising. No change in hair or nails. Neurologic: No aphasia. No facial droop. No change in mentation. No head injury. No headache. No paralysis. No paresthesia. Psychiatric: No depression. No anxiety. No mood swings. Endocrine: No abnormal blood sugars. No excessive sweating or thirst. No cold intolerance. PHYSICAL EXAMINATION Gen: This is elderly, 89-year-old thin male. He is laying in bed cannot hear well and not moving well does not look in any respiratory distress. HEENT: Head is atraumatic, normocephalic. Pupils equal, round. Sclerae is anicteric. NECK: Supple. No JVD. No lymphadenopathy. No thyromegaly. LUNGS: Decreased breath sound bilaterally. HEART: Irregular rate and rhythm. Positive systolic murmur with positive S3. ABDOMEN: Soft. Bowel sounds are present. no rebound or rigidity. EXTREMITIES: No pedal edema. No calf tenderness. NEUROLOGICAL: Patient is awake, alert and oriented with slight confusion. C ranial nerves 2 through 12 are grossly intact. Positive generalized weakness or fatigue. ASSESSMENT AND PLAN 1. Acute abdominal pain secondary to hydronephrosis, acute kidney injury, UTI. 2. Chronic hydronephrosis. Urology consult appreciated. No plan for intervention. 3. Acute kidney injury with chronic kidney disease stage IV. Consult with nephrology appreciated. IV fluids changed to LR at 75 mL per hour, avoid hypotension, avoid nephrotoxic agents. 4. Polycythemia has been ruled out as lab work appears to be reported in error. 5. Recent history of GI bleed. Patient is off anticoagulation. 6. Paroxysmal atrial fibrillation. Continue Tambocor, metoprolol, off anticoagulation. 7. Anemia of recent acute blood loss and chronic disease. Monitor hemoglobin. Ferrlecit infusion 1 8. Metabolic acidosis. Patient's been started on bicarb drip. Repeat blood work. 9. Fecal impaction. Mineral oil enema is scheduled for today. 10. Acute urinary tract infection infection. Continue Rocephin 1 g IV piggyback daily until urine culture is finalized. Urine culture preliminary report positive for yeast species. Start Diflucan 100 mg daily and add shelter monitor due to possible QT prolongation with flecainide 11. History of prostate cancer with benign prostatic hypertrophy. Continue Flomax 0.4 mg daily. 12. Hypertension. Continue metoprolol tartrate 25 mg twice daily. 13. Atherosclerotic heart disease, stable. 14. Moderate protein calorie malnutrition. Patient started on ensure 3 times daily. 15. GI prophylaxis. Continue Protonix 40 mg oral daily. 16. DVT prophylaxis. Early ambulation, [place]. DISCHARGE PLAN [facility] on Sunday. Impression and plan of care have been directed as dictated by the signing physician. Tena Silva nurse practitioner acting as scribe for signing physici an. Objective - Vital Signs Vital signs: Vital Signs Temp 98.6 F 09/23/20 07:45 Pulse 74 09/23/20 07:45 Resp 16 09/23/20 07:45 BP 102/40 09/23/20 07:45 Pulse Ox 96 09/23/20 07:45 Intake & Output 09/22/20 09/23/20 09/23/20 18:59 06:59 18:59 Intake Total 708 Output Total 1001 875 950 Balance -293 875 -950 Weight 58.967 kg Intake: Oral 708 Output: Urine 1000 875 950 Stool 1 Other: Voiding Method Indwelling Catheter Indwelling Catheter Indwelling Catheter # Bowel Movements 1 - Labs CBC & Chem 7: 09/23/20 06:50 09/22/20 05:37 Labs: Abnormal Lab Results - Last 24 Hours (Table) 09/23/20 Range/Units 06:50 RBC 2.12 L (4.40-5.60) X 10*6/uL Hgb 7.2 L (13.0-17.0) g/dL Hct 22.5 L (39.6-50.0) % MCV 106.1 H (80.0-97.0) fL MCH 34.0 H (27.0-32.0) pg MPV 8.8 L (9.5-12.2) fL Microbiology - Last 24 Hours (Table) 09/20/20 12:50 Urine Culture - Preliminary Urine,Voided Yeast species
[2020-09-23 11:52] LABS: African American GFR (CKD) 28.3 (60.0-200.0); Anion Gap 8.6 mmol/L (4.00-12.00); BUN/Creat Ratio 24.35 Ratio (12.00-20.00); Calcium 7.4 mg/dL (8.7-10.3); Carbon Dioxide 29.4 mmol/L (21.6-31.8); Non-African American GFR(CKD) 24.4 (60.0-200.0)
[2020-09-23 11:52] LABS: HGB 7.4 gm/dL (13.0-17.5); Platelet Count 342 k/uL (150-450)
[2020-09-23] MEDS: FLUCONAZOLE 100 MG TAB PO SCH (11:56)
[2020-09-23 11:58] LABS: African American GFR (CKD) 30 (>60 ml/min/1.73 sqM); Anion Gap 4 mmol/L; Blood Urea Nitrogen 58 mg/dL (9-20); Calcium 7.6 mg/dL (8.4-10.2); Carbon Dioxide 31 mmol/L (22-30); Chloride 101 mmol/L (98-107); Glucose 108 mg/dL (74-99); Non-African American GFR(CKD) 26 (>60 ml/min/1.73 sqM); Potassium 3.9 mmol/L (3.5-5.1); Sodium 136 mmol/L (137-145)
--- NOTE | 2020-09-23 15:04 | P.PN ---
Subjective Progress Note Date: 09/23/20 CHIEF COMPLAINT: Rectal pain HISTORY OF PRESENT ILLNESS: Surgical service is following regards to patient's fecal impaction. Patient did have multiple bowel movements after the second mineral oil enema and dose of lactulose. He is tolerating diet. Denies any abdominal pain. Denies any rectal pain. He's afebrile. WBC 5.5 hemoglobin 7.4 creatinine 2.21 medicine service anticipating discharge on Sunday PHYSICAL EXAM: VITAL SIGNS: Reviewed GENERAL: Well-developed in no acute distress. HEENT: No sclera icterus. Extraocular movements grossly intact. Moist buccal mucosa. Head is atraumatic, normocephalic. Hears conversational speech. No nasal drainage. NECK: Supple without lymphadenopathy. CHEST: Non-labored respirations and equal bilateral excursions. CARDIOVASCULAR: Palpable 2+ radial pulses. ABDOMEN: Soft. Nondistended. Nontender. MUSCULOSKELETAL: No clubbing or cyanosis. NEUROLOGIC: No focal or lateralizing signs. Cranial nerves II through XII grossly intact. PSYCH: Appropriate affect. Alert and oriented to person, place and time. SKIN: Well perfused. Good skin turgor. ASSESSMENT: 1. Rectal pain secondary to fecal impaction 2. Bilateral hydronephrosis evaluated by urology 3. Acute kidney injury 4. Chronic kidney disease 5. History of prostate cancer status post radiation treatment 6. UTI PLAN: -Continue conservative management -Patient is stable from a surgical standpoint for discharge Physician Negative Restorer note has been reviewed by physician. Signing provider agrees with the documented findings, assessment, and plan of care. Objective - Vital Signs Vital signs: Vital Signs Temp 98.6 F 09/23/20 07:45 Pulse 74 09/23/20 07:45 Resp 16 09/23/20 07:45 BP 102/40 09/23/20 07:45 Pulse Ox 96 09/23/20 07:45 Intake & Output 09/22/20 09/23/20 09/23/20 18:59 06:59 18:59 Intake Total 708 Output Total 1001 875 950 Balance -293 -926 -950 Weight 58.967 kg Intake: Oral 708 Output: Urine 1000 875 950 Stool 1 Other: Voiding Method Indwelling Catheter Indwelling Catheter Indwelling Catheter # Bowel Movements 1 - Labs CBC & Chem 7: 09/23/20 10:59 09/23/20 10:59 Labs: Abnormal Lab Results - Last 24 Hours (Table) 09/23/20 09/23/20 09/23/20 Range/Units 06:50 06:50 10:59 RBC 2.12 L 2.22 L (4.40-5.60) X 10*6/uL Hgb 7.2 L 7.4 L D (13.0-17.0) g/dL Hct 22.5 L 22.9 L (39.6-50.0) % MCV 106.1 H 103.5 H (80.0-97.0) fL MCH 34.0 H (27.0-32.0) pg MPV 8.8 L (9.5-12.2) fL Sodium (137-145) mmol/L Carbon Dioxide (22-30) mmol/L BUN 56.0 H (9.0-27.0) mg/dL Creatinine 2.3 H (0.6-1.5) mg/dL Est GFR (CKD-EPI)AfAm 28.3 L (60.0-200.0) Est GFR (CKD-EPI)NonAf 24.4 L (60.0-200.0) BUN/Creatinine Ratio 24.35 H (12.00-20.00) Ratio Glucose (74-99) mg/dL Calcium 7.4 L (8.7-10.3) mg/dL 09/23/20 Range/Units 10:59 RBC (4.40-5.60) X 10*6/uL Hgb (13.0-17.0) g/dL Hct (39.6-50.0) % MCV (80.0-97.0) fL MCH (27.0-32.0) pg MPV (9.5-12.2) fL Sodium 136 L (137-145) mmol/L Carbon Dioxide 31 H (22-30) mmol/L BUN 58 H (9.0-27.0) mg/dL Creatinine 2.21 H (0.6-1.5) mg/dL Est GFR (CKD-EPI)AfAm (60.0-200.0) Est GFR (CKD-EPI)NonAf (60.0-200.0) BUN/Creatinine Ratio (12.00-20.00) Ratio Glucose 108 H (74-99) mg/dL Calcium 7.6 L (8.7-10.3) mg/dL Microbiology - Last 24 Hours (Table) 09/20/20 12:50 Urine Culture - Preliminary Urine,Voided Yeast species
[2020-09-24] MEDS: LACTATED RINGERS 1,000 ML IV SCH (05:36)
[2020-09-24 08:06] VITALS: BP 100/49; PULSE 75; RESP 16; TEMP 98.3
[2020-09-24] MEDS: ZINC SULFATE 220 MG CAP PO SCH (08:19)
[2020-09-24] MEDS: ASPIRIN 81 MG PO SCH (08:19)
[2020-09-24] MEDS: PANTOPRAZOLE 40 MG TABLET PO SCH (08:19)
[2020-09-24] MEDS: MAGNESIUM OXIDE 400 MG TAB PO SCH (08:19)
[2020-09-24] MEDS: TAMSULOSIN 0.4 MG CAP.ER.24H PO SCH (08:19)
[2020-09-24] MEDS: FLUCONAZOLE 100 MG TAB PO SCH (08:19)
[2020-09-24] MEDS: CYANOCOBALAMIN 500 MCG TAB PO SCH (08:19)
[2020-09-24] MEDS: METOPROLOL TARTRATE 25 MG TAB PO SCH (08:19)
[2020-09-24] MEDS: MULTIVITAMINS, THERA 1 EACH TAB PO SCH (08:19)
--- NOTE | 2020-09-24 09:24 | P.DS ---
Providers Date of admission: 09/20/20 18:47 Expected date of discharge: 09/24/20 Attending physician: Ramana Bess Consults: 09/20/20 16:36 Consult Physician Urgent Consulting Provider: Betsey Glass Consult Reason/Comments: bowel obstruction Do you want consulting provider notified?: Yes 09/20/20 16:37 Consult Physician Urgent Consulting Provider: Lavell Howard Consult Reason/Comments: Hydronephrosis Do you want consulting provider notified?: Yes 09/20/20 16:38 Consult Physician Urgent Consulting Provider: Nida Villa Consult Reason/Comments: Acute kidney injury Do you want consulting provider notified?: Yes Primary care physician: [facility] Course: HISTORY OF PRESENT ILLNESS 89-year-old male one of for office patient who was in the hospital last time in 06/03/2020 for generalized weakness and acute GI bleed the time. Patient is known to have history of prostate cancer along with obstructive uropathy and recurrent kidney stone with recurrent UTI. Patient was treated aggressively the time he continued to have significant anemia requiring multiunit blood transfusion at the time. Also developed to have significant urinary retention had indwelling catheter. Was seen and evaluated by urology found to have acute kidney injury with bilateral hydronephrosis and was discharged to [facility] subacute rehab and was doing some outpatient physical therapy afterward. Patient brought to demurs department today with several episode of diarrhea along with nausea vomiting he is not able to tolerate any food or fluid has lost more weight ambulate has been having more tarry stool at the time with slight increase abdominal pain along with the cramps and worsening symptoms. He is known to have history of A. fib, multiple stone, hydronephrosis with chronic kidney disease, history of prostate cancer. Patient is hard hearing is difficult to collect anymore information. Patient abdominal pain and pelvis surprisingly shows severe bilateral hydronephrosis and hydroureter the bladder showed circumferential thickened and mildly inflamed wall with appearance of thickened internal septation with gout clear etiology neoplastic etiology along with dissection of urinary to bladder wall or intramural abscess are consideration. 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 Surprisingly patient is in acute kidney failure with BUN 106 creatinine 4.3 with GFR running around 11 only with the finding on his urine test showed significant white blood cell along with red blood cell and leukocyte patient be treated for infection as well. Notify urology with the current problem 09/21: Patient has been seen by Dr. Howard regarding bilateral hydronephrosis, chronic secondary to radiation therapy for prostate cancer several years ago. No further treatment for hydronephrosis which is chronic and irreversible. Patient has been seen by nephrology and bicarb drip has been started. Patient to increase oral intake. Ensure has been added for 3 times daily. Regarding fecal impaction, patient is scheduled for mineral oil enema today. Repeat blood work reveals WBC 5.5, hemoglobin 7.7, platelet count 310. Because this seems to be his baseline lab work and yesterday's were vastly abnormal, blood work done yesterday is considered to be an error. Morning chemistry panel is not available at 1:29 in the afternoon. Urine culture has been received. Repeat blood work ordered for tomorrow. 09/22: [facility] catheter was placed yesterday morning for urinary retention. Regar ding fecal impaction, patient had a good bowel movement yesterday and a small one this morning. PT and OT are working with the patient and he has a 1 person Quynh cyst. Patient does have old DME in place at home and most likely will manage fine. Dr. Bess contacted the patient's son and updated regarding patient's condition, family will decide on discharge planning for tomorrow. Patient is afebrile, heart rate 79, blood pressure 92/52, pulse ox 96% on room air. Repeat blood work reveals WBC 4.8, hemoglobin 7.1, platelet count 293. Electrolytes are normal. BUN 72 and creatinine improved to 2.6. Calcium 7.6, total bilirubin 0.1 and liver function tests are normal. Urine culture is in progress. Ferrlecit infusion ordered for today. Repeat blood work for tomorrow. Anticipate possible discharge tomorrow or Sunday. 09/23: Yesterday, general surgery and did repeat mineral oil enema and lactulose. Patient has had bowel movements since. Has been afebrile, heart rate 74, blood pressure 102/40, pulse ox 96% on room air. Repeat blood work reveals WBC 5.8, hemoglobin 7.2, platelet count 311. Chemistry panel is not reported at 11:39 AM. Urine culture luminary report is positive for yeast species. Diflucan will be added as well as cardiac monitoring for monitoring of QT prolongation with flecainide. Patient remains on sodium bicarb drip with plan to switch to Ringer's lactate today. Patient's family has decided the patient will go to [facility] for subacute rehab. Plan will be for discharge to rehab tomorrow. 09/24: Patient has been afebrile, heart rate 75, blood pressure 100/49, pulse ox 94% on room air. Patient denies any new complaints. His abdominal pain is improved. He still has significant shortness of breath for which Debrox eardrops will be ordered for 3 days at the halfway. Repeat blood work reveals WBC 5.4, hemoglobin 7, platelet count 339. Sodium 134, potassium 3.7, chloride 102, CO2 26, BUN 57 and creatinine 2.3. Blood sugar 111. Calcium 7.4. Patient has been started on Aranesp by nephrology. Coronavirus PCR not detected. Patient will be discharged to [facility] today in stable condition. ASSESSMENT AND PLAN 1. Acute abdominal pain secondary to constipation. 2. Chronic hydronephrosis. 3. Acute kidney injury with chronic kidney disease stage IV. 4. Polycythemia has been ruled out as lab work appears to be reported in error. 5. Recent history of GI bleed. Patient is off anticoagulation. 6. Paroxysmal atrial fibrillation. 7. Anemia of recent acute blood loss and chronic disease. 8. Metabolic acidosis. 9. Fecal impaction. 10. Acute urinary tract infection infection. 11. History of prostate cancer with benign prostatic hypertrophy. 12. Hypertension. 13. Atherosclerotic heart disease, stable. 14. Moderate protein calorie malnutrition. DISCHARGE PLAN [facility] under the care of Dr. Bess. Impression and plan of care have been directed as dictated by the signing physician. Tena Silva nurse practitioner acting as scribe for signing physician. Patient Condition at Discharge: Fair Plan - Discharge Summary Discharge Rx Participant: No New Discharge Prescriptions: New Carbamide Peroxide [Debrox Otic] 5 drops BOTH EARS BID 3 Days #10 ml Fluconazole [Diflucan] 100 mg PO DAILY #12 tab Polyethylene Glycol 3350 [Miralax] 17 gm PO DAILY #527 gm Sennosides-Docusate Sodium [Senokot-S] 2 tab PO DAILY #60 tablet Darbepoetin Tez [Aranesp] 60 mcg SQ Q7D syringe Continue Flecainide Acetate 50 mg PO Q12H Cyanocobalamin [Vitamin B-12] 500 mcg PO BID Tamsulosin [Flomax] 0.4 mg PO DAILY Metoprolol Tartrate [Lopressor] 25 mg PO BID Magnesium Oxide 420mg 420 mg PO DAILY Cranberry(Unknown Dose) 1 tab PO DAILY Multivitamins, Thera [Multivitamin (formulary)] 1 tab PO DAILY [place]-3 Fatty Acids/Fish Oil [Fish Oil 1,000 mg Softgel] 2 tab PO DAILY Aspirin 81 mg PO DAILY Zinc 50 mg PO DAILY Discharge Medication List Cyanocobalamin [Vitamin B-12] 500 mcg PO BID 05/01/19 [History] Flecainide Acetate 50 mg PO Q12H 05/01/19 [History] Metoprolol Tartrate [Lopressor] 25 mg PO BID 05/01/19 [History] Tamsulosin [Flomax] 0.4 mg PO DAILY 05/01/19 [History] Magnesium Oxide 420mg 420 mg PO DAILY 03/12/20 [History] Cranberry(Unknown Dose) 1 tab PO DAILY 06/02/20 [History] Aspirin 81 mg PO DAILY 09/20/20 [History] Multivitamins, Thera [Multivitamin (formulary)] 1 tab PO DAILY 09/20/20 [History] [place]-3 Fatty Acids/Fish Oil [Fish Oil 1,000 mg Softgel] 2 tab PO DAILY 09/20/20 [History] Zinc 50 mg PO DAILY 09/20/20 [History] Carbamide Peroxide [Debrox Otic] 5 drops BOTH EARS BID 3 Days #10 ml 09/24/20 [Rx] Darbepoetin Tez [Aranesp] 60 mcg SQ Q7D syringe 09/24/20 [Rx] Fluconazole [Diflucan] 100 mg PO DAILY #12 tab 09/24/20 [Rx] Polyethylene Glycol 3350 [Miralax] 17 gm PO DAILY #527 gm 09/24/20 [Rx] Sennosides-Docusate Sodium [Senokot-S] 2 tab PO DAILY #60 tablet 09/24/20 [Rx] Follow up Appointment(s)/Referral(s): Ramana Bess MD [Primary Care Provider] - 1 Week (at [facility]) Discharge Disposition: TRANSFER TO SNF/ECF
[2020-09-24] MEDS: FLECAINIDE 50 MG TAB PO SCH (10:20)
[2020-09-24] MEDS ORDERED: DARBEPOETIN ALFA 60 MCG/0.3 ML SYRINGE SQ SCH (10:30)
[2020-09-24 11:56] LABS: HCT 22.5 % (39.0-53.0); Hypochromasia Slight; MCHC 31.3 g/dL (31.0-37.0); MCV 105.4 fL (80.0-100.0); Macrocytosis Slight; Mean Platelet Volume 6.8; Platelet Count 339 k/uL (150-450); RBC 2.13 m/uL (4.30-5.90); WBC 5.4 k/uL (3.8-10.6)
--- NOTE | 2020-09-24 11:57 | PN ---
PROGRESS NOTE Patient is seen for followup for acute kidney injury and metabolic acidosis. He is currently maintained on bicarb drip currently which was discontinued yesterday. Patient has a history of chronic hydronephrosis which has been stable with stable renal function and therefore no intervention has been recommended by Urology. PHYSICAL EXAMINATION: On examination today, blood pressure 100/49, heart rate 75 per minute. He is afebrile. Examination of the heart S1, S2. Examination of the lungs, bilateral breath sounds are heard. Abdomen is soft, nontender. Examination of lower extremities shows no evidence of edema. The patient is very hard of hearing. 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 LAB: Show sodium 136, potassium 3.9, BUN 58, serum creatinine 2.2, hemoglobin 7.4 g/dL. ASSESSMENT: 1. Acute kidney injury, prerenal, currently improved. 2. Chronic kidney disease secondary to chronic obstructive uropathy with chronic bilateral hydronephrosis with serum creatinine staying at about 2 mg/dL. 3. Metabolic acidosis associated with diarrhea and renal failure, currently improved. 4. Anemia, no active bleeding noted at this time. The patient will be maintained on Aranesp. PLAN: Add Aranesp and monitor postvoid residuals. Yesterday it was only at 30 cc and followup with Nephrology and Urology as outpatient. MMODL / IJN: [id number] /
[2020-09-24 12:01] LABS: African American GFR (CKD) 28 (>60 ml/min/1.73 sqM); Anion Gap 6 mmol/L; Blood Urea Nitrogen 57 mg/dL (9-20); Calcium 7.4 mg/dL (8.4-10.2); Carbon Dioxide 26 mmol/L (22-30); Chloride 102 mmol/L (98-107); Glucose 111 mg/dL (74-99); Non-African American GFR(CKD) 25 (>60 ml/min/1.73 sqM); Potassium 3.7 mmol/L (3.5-5.1); Sodium 134 mmol/L (137-145)
--- NOTE | 2020-09-24 14:33 | P.PN ---
Subjective Progress Note Date: 09/24/20 CHIEF COMPLAINT: Abdominal pain HISTORY OF PRESENT ILLNESS: The patient is a 89-year-old male admitted with fecal impaction abdominal pain. He has been able to tolerate diet. No further abdominal pain. He is very hard of hearing. He is having bowel movements. ROS: No reports of nausea and vomiting. No fevers or chills. Denies shortness of breath. PHYSICAL EXAM: VITAL SIGNS: Reviewed CONSTITUTIONAL: Well developed and in no acute distress. EYES: Conjuctivae without sclera icterus. Extraocular movements grossly intact. Wears glasses. HEAD, EARS, NOSE, THROAT: Moist buccal mucosa. Hard of hearing. NECK: No thyroidomegaly. RESPIRATORY: Non-labored respirations and equal bilateral excursions. CARDIOVASCULAR: Regular rate. Regular rhythm. ABDOMEN: No peritonitis. MUSCULOSKELETAL: No clubbing cyanosis. SKIN: Good skin turgor. Well perfused. NEUROLOGIC: Cranial nerves II through XII grossly intact. No focal or lateralizing signs. PSYCH: Appropriate affect. Alert and oriented to person. CLINICAL LABS: White blood cell count normal. Hemoglobin was 7.4-7.0, stable ASSESSMENT: 1. Fecal impaction 2. Anemia PLAN: 1. Per patient transition to a rehab facility/care facility described 2. Diet as tolerated 3. Stable for discharge from surgical standpoint Objective - Vital Signs Vital signs: Vital Signs Temp 98.3 F 09/24/20 08:00 Pulse 75 09/24/20 08:00 Resp 16 09/24/20 08:00 BP 100/49 09/24/20 08:00 Pulse Ox 94 L 09/24/20 08:00 Intake & Output 09/23/20 09/24/20 09/24/20 18:59 06:59 18:59 Output Total 950 Balance -950 Output: Urine 950 Other: Voiding Method Indwelling Catheter Diaper # Voids 4 3 # Bowel Movements 1 - Labs CBC & Chem 7: 09/24/20 11:19 09/24/20 11:19 Labs: Abnormal Lab Results - Last 24 Hours (Table) 09/24/20 09/24/20 Range/Units 11:19 11:19 RBC 2.13 L (4.30-5.90) m/uL Hgb 7.0 L (13.0-17.5) gm/dL Hct 22.5 L (39.0-53.0) % MCV 105.4 H (80.0-100.0) fL Sodium 134 L (137-145) mmol/L BUN 57 H (9-20) mg/dL Creatinine 2.30 H (0.66-1.25) mg/dL Glucose 111 H (74-99) mg/dL Calcium 7.4 L (8.4-10.2) mg/dL Microbiology - Last 24 Hours (Table) 09/20/20 12:50 Urine Culture - Final Urine,Voided Jocelyn sp,not albicans/galbr
== END 2020-09-24 13:09 | DRG 683 ==
LOC: EC 11:37 → 4SSUR 18:47
PROVIDERS: ADMIT Internal Medicine Geriatric Medicine; ATTEND Internal Medicine Geriatric Medicine
DX: N17.9 Acute kidney failure, unspecified (principal); Z16.24 Resistance to multiple antibiotics; D62 Acute posthemorrhagic anemia; E87.2 Acidosis; E44.0 Moderate protein-calorie malnutrition; I12.9 Hypertensive chronic kidney disease with stage 1 through stage 4 chronic kidney disease, or unspecified chronic kidney disease; N18.4 Chronic kidney disease, stage 4 (severe); Z20.822 Contact with and (suspected) exposure to COVID-19; I25.10 Atherosclerotic heart disease of native coronary artery without angina pectoris; I48.0 Paroxysmal atrial fibrillation; M54.5 Low back pain; G89.29 Other chronic pain; K44.9 Diaphragmatic hernia without obstruction or gangrene; K56.41 Fecal impaction; M10.9 Gout, unspecified; N28.1 Cyst of kidney, acquired; N40.1 Benign prostatic hyperplasia with lower urinary tract symptoms; Z92.3 Personal history of irradiation; Z90.49 Acquired absence of other specified parts of digestive tract; Z87.891 Personal history of nicotine dependence; Z87.442 Personal history of urinary calculi; Z87.440 Personal history of urinary (tract) infections; Z85.46 Personal history of malignant neoplasm of prostate; Z82.49 Family history of ischemic heart disease and other diseases of the circulatory system; Z79.899 Other long term (current) drug therapy; Z79.82 Long term (current) use of aspirin
CPT/HCPCS: 36415; 74018; 74176; 80048; 80053; 81001; 82150; 83605; 83690; 85025; 85027; 87086; 87635; 96360; 99285

== ENCOUNTER 2020-11-16 14:10 | Inpatient (IN) | payer MEDICARE, OTHER ==
[2020-11-16] MEDS ORDERED: KETOROLAC 15 MG/ML 1 ML VIAL IVP STA (14:33)
[2020-11-16] MEDS ORDERED: ASPIRIN 325 MG TAB PO STA (14:34)
--- NOTE | 2020-11-16 14:44 | ED ---
General Adult HPI - General Chief complaint: Weakness Stated complaint: weakness Time Seen by Provider: 11/16/20 14:11 Source: patient, RN notes reviewed, old records reviewed Mode of arrival: EMS Limitations: no limitations - History of Present Illness Initial comments: Patient is an 89-year-old male with past medical history remarkable for atrial fibrillation, cancer, hypertension, prostate disorder, renal disease who presents emergency Department complaining of generalized weakness starting this morning. Patient states that he awoke this morning and felt fatigued. He denies Chest pain, shortness breath, abdominal pain, nausea, vomiting. No sensory deficits. Patient states that he was having worsening acute on chronic bilateral knee pain. Also states describes chronic left shoulder pain. Denies any change in urination or pain on urinating. Denies any diarrhea. States he has been having normal bowel movements. He is alert and oriented 4. Patient presents for evaluation for his weakness. He was eventually able to get out of bed but took longer than normal. Denies any falls. Walks around the house with his walker at [employer] just around his house. He lives with his son. - Related Data Home Medications Medication Instructions Recorded Confirmed Cyanocobalamin [Vitamin B-12] 500 mcg PO BID 05/01/19 11/16/20 Metoprolol Tartrate [Lopressor] 25 mg PO BID 05/01/19 11/16/20 Tamsulosin [Flomax] 0.4 mg PO DAILY 05/01/19 11/16/20 Magnesium Oxide 420mg 420 mg PO DAILY 03/12/20 11/16/20 Aspirin 81 mg PO DAILY 09/20/20 11/16/20 Multivitamins, Thera [Multivitamin 1 tab PO DAILY 09/20/20 11/16/20 (formulary)] [place]-3 Fatty Acids/Fish Oil [Fish 2 tab PO DAILY 09/20/20 11/16/20 Oil 1,000 mg Softgel] Zinc 50 mg PO TID 09/20/20 11/16/20 Cranberry Fruit Extract [Cranberry] 500 mg PO DAILY 11/16/20 11/16/20 Previous Rx's Medication Instructions Recorded Darbepoetin Tez [Aranesp] 60 mcg SQ Q7D syringe 09/24/20 Polyethylene Glycol 3350 [Miralax] 17 gm PO DAILY #527 gm 09/24/20 Sennosides-Docusate Sodium 2 tab PO DAILY #60 tablet 09/24/20 [Senokot-S] Allergies Allergy/AdvReac Type Severity Reaction Status Date / Time goserelin Allergy Mild "hot Verified 11/16/20 16:20 flashes" Review of Systems ROS Statement: Those systems with pertinent positive or pertinent negative responses have been documented in the HPI. Review of Systems: CONST: Endorses generalized fatigue. EYES: Denies blurry vision ENT: Denies nasal congestion C/V: Denies Chest pain RESP: Denies shortness of breath GI: Denies abdominal pain : Denies dysuria SKIN: Denies rash. MSK: Endorses chronic bilateral knee pain, shoulder pain. NEURO: Denies headache ROS Other: All systems not noted in ROS Statement are negative. Past Medical History Past Medical History: Atrial Fibrillation, Cancer, Hypertension, Prostate Disorder, Renal Disease Additional Past Medical History / Comment(s): Prosate cancer with radiation, kidney stones passed on his own and surgically removed, UTIs, chronic low back pain, occasional sinus problems. [place]. History of Any Multi-Drug Resistant Organisms: MRSA Date of last positivie culture/infection: 2017 MDRO Source:: urine? family/pt unsure Past Surgical History: Appendectomy, Hernia Repair, Orthopedic Surgery Additional Past Surgical History / Comment(s): Lithotripsy, hiatal hernia repair, L knee open surgery to "clean it out", colonoscopy, circumcism later in life d/t UTIs. Past Anesthesia/Blood Transfusion Reactions: No Reported Reaction Past Psychological History: No Psychological Hx Reported Smoking Status: Never smoker Past Alcohol Use History: None Reported Past Drug Use History: None Reported - Past Family History Father Family Medical History: Hypertension Additional Family Medical History / Comment(s): Father at age 82 from old age. Mother Additional Family Medical History / Comment(s): Mother at age 82 and was in a coma at the time. Patient is unsure of cause of her or causative coma. Brother(s) Additional Family Medical History / Comment(s): Patient has 1 brother that is . He is not know any of his medical history. Patient does not have any sisters. Patient has 4 daughters and 4 sons with no major medical problems. General Exam - General Exam Comments Initial Comments: General: Appears in no acute distress. HEAD: Normal with no signs of head trauma. EYES: PERRLA, EOMI, conjunctiva normal, no discharge. Pupils are 3 mm bilaterally. ENT: Patient is hard of hearing but does have a hearing aid to help. Normal oropharynx. RESPIRATORY: Clear breath sounds bilaterally. No wheezes, rales, or rhonchi. C/V: Regular rate and rhythm. S1 and S2 auscultated. Peripheral pulses are 2+ and intact throughout. Patient has mild 1+ pitting edema in the bilateral shins. ABD: Abd is soft, nontender, nondistended EXT: Patient is reduced range of motion of bilateral knee secondary to pain. 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 SKIN: No rashes or lesions observed on exposed skin. NEURO: Alert and oriented 4. Cranial nerves II through XII are intact. NIH stroke scale is 0. No focal sensory or strength deficits. Patient is reduced range of motion of bilateral knees. Pulses reduced range of motion of left shoulder. This reduced range of motion secondary to chronic pain. Limitations: no limitations Course Vital Signs 11/16/20 14:14 Temperature 98.6 F Pulse Rate 68 Respiratory 16 Rate Blood Pressure 123/70 O2 Sat by Pulse 99 Oximetry Medical Decision Making - Medical Decision Making Based on the patient's presentation and physical exam, I'm concerned for possible AK eye, dehydration, UTIs this cause of his current symptoms. However we cannot rule out the possibility of a cardiac etiology. Therefore we will obtain EKG, troponin, basic laboratory studies, urinalysis. He'll be given a 1 L fluid bolus while he is here in the department. Patient's vital signs are o therwise unremarkable. He does appear to be having chronic bilateral knee pain, and therefore we will also obtain bilateral knee x-rays. Denies any new falls or trauma. He was in agreement this plan. He'll be given an aspirin here in the department. He'll be given Toradol for knee pain. Patient's EKG shows no acute signs of ischemia. Patient's chest x-ray reveals no acute cardiopulmonary process. Patient's bilateral knee x-rays reveal no acute process. There are chronic degenerative changes present as well as diffuse bony osteopenia. Patient's laboratory studies are remarkable for a macrocytic anemia with a hemoglobin of 10.3. Patient is hyperkalemic without any EKG changes likely secondary to his dehydration. Patient has a slightly decreased bicarb 17. Patient has an AK I with a creatinine of 3, baseline is typically around 2. Troponin is negative. BNP is slightly elevated. To 5000, however is only signs of heart failure at this time is the chronic bilateral lower extremity edema. He denies any shortness of breath. Chest x-ray appears to not show fluid overload state. I believe he can tolerate more fluids. Urinalysis is remarkable for urinary tract infection. I spoke the patient regarding his findings. He'll be started on IV fluids, as well as IV Rocephin for his UTI. He'll be admitted to the hospital for further monitoring and management. He was in agreement this plan. Spoke with the admitting team under Dr. Santos who accepted the admission. Patient was therefore admitted in serous condition for further management of his UTI as well as his dehydration and SAI. - Lab Data Result diagrams: 11/16/20 14:52 11/16/20 14:52 Lab Results 11/16/20 11/16/20 11/16/20 Range/Units 14:52 14:52 14:52 WBC 10.1 (3.8-10.6) k/uL RBC 2.82 L (4.30-5.90) m/uL Hgb 10.3 L (13.0-17.5) gm/dL Hct 30.9 L (39.0-53.0) % MCV 109.6 H (80.0-100.0) fL MCH 36.4 H (25.0-35.0) pg MCHC 33.2 (31.0-37.0) g/dL RDW 13.1 (11.5-15.5) % Plt Count 229 (150-450) k/uL MPV 7.3 Neutrophils % 84 % Lymphocytes % 5 % Monocytes % 9 % Eosinophils % 1 % Basophils % 0 % Neutrophils # 8.5 H (1.3-7.7) k/uL Lymphocytes # 0.5 L (1.0-4.8) k/uL Monocytes # 0.9 (0-1.0) k/uL Eosinophils # 0.1 (0-0.7) k/uL Basophils # 0.0 (0-0.2) k/uL Manual Slide Review Performed Poikilocytosis (manual Present Anisocytosis (manual) Present Macrocytosis Marked A PT 11.0 (9.0-12.0) sec INR 1.0 (<1.2) APTT 22.6 (22.0-30.0) sec Sodium (137-145) mmol/L Potassium (3.5-5.1) mmol/L Chloride (98-107) mmol/L Carbon Dioxide (22-30) mmol/L Anion Gap mmol/L BUN (9-20) mg/dL Creatinine (0.66-1.25) mg/dL Est GFR (CKD-EPI)AfAm (>60 ml/min/1.73 sqM) Est GFR (CKD-EPI)NonAf (>60 ml/min/1.73 sqM) Glucose (74-99) mg/dL Plasma Lactic Acid Santos (0.7-2.0) mmol/L Calcium (8.4-10.2) mg/dL Magnesium (1.6-2.3) mg/dL Total Bilirubin (0.2-1.3) mg/dL AST (17-59) U/L ALT (4-49) U/L Alkaline Phosphatase (38-126) U/L Troponin I (0.000-0.034) ng/mL NT-Pro-B Natriuret Pep pg/mL Total Protein (6.3-8.2) g/dL Albumin (3.5-5.0) g/dL Urine Color Yellow Urine Appearance Turbid (Clear) Urine pH 6.0 (5.0-8.0) Ur Specific [place] 1.015 (1.001-1.035) Urine Protein 1+ H (Negative) Urine Glucose (UA) Negative (Negative) Urine Ketones Negative (Negative) Urine Blood Moderate H (Negative) Urine Nitrite Negative (Negative) Urine Bilirubin Negative (Negative) Urine Urobilinogen <2.0 (<2.0) mg/dL Ur Leukocyte Esterase Large H (Negative) Urine RBC 16 H (0-5) /hpf Urine WBC >182 H (0-5) /hpf Urine WBC Clumps Many H (None) /hpf 11/16/20 11/16/20 11/16/20 Range/Units 14:52 14:52 14:52 WBC (3.8-10.6) k/uL RBC (4.30-5.90) m/uL Hgb (13.0-17.5) gm/dL Hct (39.0-53.0) % MCV (80.0-100.0) fL MCH (25.0-35.0) pg MCHC (31.0-37.0) g/dL RDW (11.5-15.5) % Plt Count (150-450) k/uL MPV Neutrophils % % Lymphocytes % % Monocytes % % Eosinophils % % Basophils % % Neutrophils # (1.3-7.7) k/uL Lymphocytes # (1.0-4.8) k/uL Monocytes # (0-1.0) k/uL Eosinophils # (0-0.7) k/uL Basophils # (0-0.2) k/uL Manual Slide Review Poikilocytosis (manual Anisocytosis (manual) Macrocytosis PT (9.0-12.0) sec INR (<1.2) APTT (22.0-30.0) sec Sodium 133 L (137-145) mmol/L Potassium 5.4 H (3.5-5.1) mmol/L Chloride 107 (98-107) mmol/L Carbon Dioxide 17 L (22-30) mmol/L Anion Gap 9 mmol/L BUN 66 H (9-20) mg/dL Creatinine 3.00 H (0.66-1.25) mg/dL Est GFR (CKD-EPI)AfAm 21 (>60 ml/min/1.73 sqM) Est GFR (CKD-EPI)NonAf 18 (>60 ml/min/1.73 sqM) Glucose 115 H (74-99) mg/dL Plasma Lactic Acid Santso 1.2 (0.7-2.0) mmol/L Calcium 8.8 (8.4-10.2) mg/dL Magnesium 2.4 H (1.6-2.3) mg/dL Total Bilirubin 0.6 (0.2-1.3) mg/dL AST 20 (17-59) U/L ALT 11 (4-49) U/L Alkaline Phosphatase 104 (38-126) U/L Troponin I <0.012 (0.000-0.034) ng/mL NT-Pro-B Natriuret Pep pg/mL Total Protein 6.0 L (6.3-8.2) g/dL Albumin 3.2 L (3.5-5.0) g/dL Urine Color Urine Appearance (Clear) Urine pH (5.0-8.0) Ur Specific [place] (1.001-1.035) Urine Protein (Negative) Urine Glucose (UA) (Negative) Urine Ketones (Negative) Urine Blood (Negative) Urine Nitrite (Negative) Urine Bilirubin (Negative) Urine Urobilinogen (<2.0) mg/dL Ur Leukocyte Esterase (Negative) Urine RBC (0-5) /hpf Urine WBC (0-5) /hpf Urine WBC Clumps (None) /hpf 11/16/20 Range/Units 14:52 WBC (3.8-10.6) k/uL RBC (4.30-5.90) m/uL Hgb (13.0-17.5) gm/dL Hct (39.0-53.0) % MCV (80.0-100.0) fL MCH (25.0-35.0) pg MCHC (31.0-37.0) g/dL RDW (11.5-15.5) % Plt Count (150-450) k/uL MPV Neutrophils % % Lymphocytes % % Monocytes % % Eosinophils % % Basophils % % Neutrophils # (1.3-7.7) k/uL Lymphocytes # (1.0-4.8) k/uL Monocytes # (0-1.0) k/uL Eosinophils # (0-0.7) k/uL Basophils # (0-0.2) k/uL Manual Slide Review Poikilocytosis (manual Anisocytosis (manual) Macrocytosis PT (9.0-12.0) sec INR (<1.2) APTT (22.0-30.0) sec Sodium (137-145) mmol/L Potassium (3.5-5.1) mmol/L Chloride (98-107) mmol/L Carbon Dioxide (22-30) mmol/L Anion Gap mmol/L BUN (9-20) mg/dL Creatinine (0.66-1.25) mg/dL Est GFR (CKD-EPI)AfAm (>60 ml/min/1.73 sqM) Est GFR (CKD-EPI)NonAf (>60 ml/min/1.73 sqM) Glucose (74-99) mg/dL Plasma Lactic Acid Santos (0.7-2.0) mmol/L Calcium (8.4-10.2) mg/dL Magnesium (1.6-2.3) mg/dL Total Bilirubin (0.2-1.3) mg/dL AST (17-59) U/L ALT (4-49) U/L Alkaline Phosphatase (38-126) U/L Troponin I (0.000-0.034) ng/mL NT-Pro-B Natriuret Pep 5180 pg/mL Total Protein (6.3-8.2) g/dL Albumin (3.5-5.0) g/dL Urine Color Urine Appearance (Clear) Urine pH (5.0-8.0) Ur Specific [place] (1.001-1.035) Urine Protein (Negative) Urine Glucose (UA) (Negative) Urine Ketones (Negative) Urine Blood (Negative) Urine Nitrite (Negative) Urine Bilirubin (Negative) Urine Urobilinogen (<2.0) mg/dL Ur Leukocyte Esterase (Negative) Urine RBC (0-5) /hpf Urine WBC (0-5) /hpf Urine WBC Clumps (None) /hpf - EKG Data -: EKG Interpreted by Me EKG Comments: 12-lead Electrocardiogram Interpretation Note EKG was reviewed and interpreted by myself. 12-lead ECG performed at 1500 is interpreted by me as revealing normal sinus rhythm at a rate of 70 beats per minute. [place] is normal. Patient has a first-degree block with a [place] interval is 264 ms. QRS duration is 156 ms, QTc is 447 ms.. There were no ST or T wave abnormalities to suggest myocardial ischemia or injury. R wave progression across the precordium was satisfactory. By my interpretation this EKG is non- diagnostic for acute ischemia. Disposition Clinical Impression: Fatigue, UTI (urinary tract infection), Chronic knee pain, Dehydration, SAI (acute kidney injury) Disposition: ADMITTED IP TO THIS HOSP Condition: Serious
[2020-11-16 15:09] LABS: Partial Thromboplastin Time 22.6 sec (22.0-30.0)
[2020-11-16 15:12] LABS: Albumin 3.2 g/dL (3.5-5.0); Calcium 8.8 mg/dL (8.4-10.2); Magnesium 2.4 mg/dL (1.6-2.3); Potassium 5.4 mmol/L (3.5-5.1); Total Bilirubin 0.6 mg/dL (0.2-1.3)
[2020-11-16 15:20] LABS: Basophils % (A) 0 %; Eosinophils # (A) 0.1 k/uL (0-0.7); Eosinophils % (A) 1 %; HCT 30.9 % (39.0-53.0); HGB 10.3 gm/dL (13.0-17.5); Lymphocytes # (A) 0.5 k/uL (1.0-4.8); Lymphocytes % (A) 5 %; MCH 36.4 pg (25.0-35.0); MCHC 33.2 g/dL (31.0-37.0); MCV 109.6 fL (80.0-100.0); Macrocytosis Marked; Mean Platelet Volume 7.3; Monocytes # (A) 0.9 k/uL (0-1.0); Monocytes % (A) 9 %; Neutrophils # (A) 8.5 k/uL (1.3-7.7); Neutrophils % (A) 84 %; Platelet Count 229 k/uL (150-450); RBC 2.82 m/uL (4.30-5.90); RDW 13.1 % (11.5-15.5); WBC 10.1 k/uL (3.8-10.6)
--- NOTE | 2020-11-16 15:44 | XR ---
EXAMINATION TYPE: XR chest 2V DATE OF EXAM: 11/16/2020 COMPARISON: 06/02/2020 HISTORY: Shortness of breath TECHNIQUE: Frontal and lateral views of the chest are obtained. FINDINGS: Scattered senescent parenchymal changes noted. Hyperinflation compatible with COPD. No evidence for infiltrate. No evidence for atelectasis. Heart size is stable. Mediastinal structures are stable and grossly unremarkable. No evidence for hilar prominence. Degenerative changes dorsal spine. IMPRESSION: 1. No evidence for acute pulmonary disease.
--- NOTE | 2020-11-16 15:47 | XR ---
EXAMINATION TYPE: XR knee complete bilateral DATE OF EXAM: 11/16/2020 CLINICAL HISTORY: pain TECHNIQUE: Three views of the bilateral knees are obtained. COMPARISON: None. FINDINGS: There is no acute fracture/dislocation. The tri-compartment joint spaces appear moderatel y narrowed bilaterally. Diffuse bony osteopenia. The overlying soft tissue appears unremarkable. IMPRESSION: There is no acute fracture or dislocation.ICD 10 NO FRACTURE, INITIAL EVALUATION
[2020-11-16] MEDS ORDERED: SODIUM CHLORIDE 0.9% 1,000 ML IV STA ×2 (15:48)
[2020-11-16 15:49] LABS: Anisocytosis (M) Present; Poikilocytosis (M) Present
[2020-11-16] MEDS ORDERED: NALOXONE 0.4 MG/ML 1 ML VIAL IV PRN (16:15)
[2020-11-16] MEDS ORDERED: HYDROcodone/APAP 5-325MG 1 EACH TAB PO PRN (16:15)
[2020-11-16] MEDS ORDERED: ACETAMINOPHEN TAB 325 MG TAB PO PRN (16:15)
[2020-11-16 16:42] LABS: Appearance,Urine Turbid (Clear); Bilirubin,Urine Negative (Negative); Blood,Urine Moderate (Negative); Color,Urine Yellow; Glucose,Urine (UA) Negative (Negative); Ketones,Urine Negative (Negative); Leukocyte Esterase,Urine Large (Negative); Nitrite,Urine Negative (Negative); Protein,Urine 1+ (Negative); RBC,Urine 16 /hpf (0-5); Specific Gravity,Urine 1.015 (1.001-1.035); Urobilinogen,Urine <2.0 mg/dL (<2.0); WBC,Urine >182 /hpf (0-5)
[2020-11-16] MEDS: SODIUM CHLORIDE 0.9% 1,000 ML IV SCH (23:44)
--- NOTE | 2020-11-17 00:22 | P.HPIM ---
History of Present Illness H&P Date: 11/16/20 Chief Complaint: Generalized weakness and fatigue Patient is a 89-year-old male with a known history of atrial fibrillation currently not on anticoagulation, hypertension, prostate cancer status post radiation, history of UTIs, chronic low back pain, bilateral knee osteoarthritis and other medical problems presents to ER with complaints of generalized weakness since morning. Patient states that he woke up in the morning and felt very fatigued. Patient was unable to get out of bed. Patient states that she could not straighten his knee due to severe arthritis. Otherwise patient to remain fever or chills. No cough or sputum production. Denied any chest pain or shortness of breath. No nausea vomiting or abdominal pain or diarrhea. Patient also complaining of bilateral knee pain. Denied any abdominal pain. No dysuria hematuria or change in frequency of urination. Patient usually walks around the house with his walker at baseline. He lives with his son. On admission blood pressure 123/70 pulse is 68 respirations 16 and pulse ox 91% on room air. Laboratory data showed WBC 10.1 hemoglobin 10.3 MCV 1019.6, platelets 229 Sodium 133 potassium 5.4 chloride 107 bicarb is 17 BUN 66 and creatinine 3.0 proBNP 5180 Urinalysis showed 1+ protein, moderate blood, large leukocyte esterase and elevated RBCs and WBCs. Chest x-ray showed no evidence of acute cardiopulmonary disease. X-ray of the knees showed no acute fracture or dislocation. Tricompartment joint space appears moderately narrowed bilaterally. Diffuse bony osteopenia. EKG showed sinus rhythm with first-degree AV block. Patient was recently admitted to hospital due to fecal impaction, urinary retention and acute kidney injury with bilateral hydronephrosis. Review of Systems Constitutional: Patient denies any fever or chills . Patient also generalized weakness and fatigue. No recent weight loss.. Abdomen: Patient denied nausea vomiting and diarrhea and abdominal pain. Cardiovascular: Patient denies any chest pain or short of breath no palpitations. Respiratory: patient denied any cough or sputum production. No shortness of breath Neurologic: Patient denied any numbness or tingling headache. Musculoskeletal: Patient denies any complaints of joint swelling or deformity. Skin: Negative Psychiatric: Negative Endocrine: No heat or cold intolerance. No recent weight gain. Genitourinary: No dysuria or hematuria. All other 14 point ROS negative except the above Past Medical History Past Medical History: Atrial Fibrillation, Cancer, Hypertension, Prostate Disorder, Renal Disease Additional Past Medical History / Comment(s): Prosate cancer with radiation, kidney stones passed on his own and surgically removed, UTIs, chronic low back pain, occasional sinus problems. [place]. History of Any Multi-Drug Resistant Organisms: MRSA Date of last positivie culture/infection: 2017 MDRO Source:: urine? family/pt unsure Past Surgical History: Appendectomy, Hernia Repair, Orthopedic Surgery Additional Past Surgical History / Comment(s): Lithotripsy, hiatal hernia repai r, L knee open surgery to "clean it out", colonoscopy, circumcism later in life d/t UTIs. Past Anesthesia/Blood Transfusion Reactions: No Reported Reaction Past Psychological History: No Psychological Hx Reported Smoking Status: Never smoker Past Alcohol Use History: None Reported Past Drug Use History: None Reported - Past Family History Father Family Medical History: Hypertension Additional Family Medical History / Comment(s): Father at age 82 from old age. Mother Additional Family Medical History / Comment(s): Mother at age 82 and was in a coma at the time. Patient is unsure of cause of her or causative coma. Brother(s) Additional Family Medical History / Comment(s): Patient has 1 brother that is . He is not know any of his medical history. Patient does not have any sisters. Patient has 4 daughters and 4 sons with no major medical problems. Medications and Allergies Home Medications Medication Instructions Recorded Confirmed Type Cyanocobalamin [Vitamin B-12] 500 mcg PO BID 05/01/19 11/16/20 History Metoprolol Tartrate [Lopressor] 25 mg PO BID 05/01/19 11/16/20 History Tamsulosin [Flomax] 0.4 mg PO DAILY 05/01/19 11/16/20 History Magnesium Oxide 420mg 420 mg PO DAILY 03/12/20 11/16/20 History Aspirin 81 mg PO DAILY 09/20/20 11/16/20 History Multivitamins, Thera [Multivitamin 1 tab PO DAILY 09/20/20 11/16/20 History (formulary)] [place]-3 Fatty Acids/Fish Oil [Fish 2 tab PO DAILY 09/20/20 11/16/20 History Oil 1,000 mg Softgel] Zinc 50 mg PO TID 09/20/20 11/16/20 History Darbepoetin Tez [Aranesp] 60 mcg SQ Q7D syringe 09/24/20 11/16/20 Rx Polyethylene Glycol 3350 [Miralax] 17 gm PO DAILY #527 gm 09/24/20 11/16/20 Rx Sennosides-Docusate Sodium 2 tab PO DAILY #60 tablet 09/24/20 11/16/20 Rx [Senokot-S] Cranberry Fruit Extract [Cranberry] 500 mg PO DAILY 11/16/20 11/16/20 History Allergies Allergy/AdvReac Type Severity Reaction Status Date / Time goserelin Allergy Mild "hot Verified 11/16/20 16:20 flashes" Physical Exam Vitals: Vital Signs Temp Pulse Resp BP Pulse Ox 11/16/20 14:14 98.6 F 68 16 123/70 99 Intake and Output 11/16/20 11/16/20 11/16/20 06:59 14:59 22:59 Other: Weight 53.07 kg PHYSICAL EXAMINATION: Patient is lying in the bed comfortably, no acute distress, awake alert and oriented.Cathectic. HEENT: Normocephalic. Neck is supple. Pupils reactive. Nostrils clear. Oral cavity is moist. Ears reveal no drainage. Neck reveals no JVD, carotid bruits, or thyromegaly. CHEST EXAMINATION: Trachea is central. Symmetrical expansion. Lung rapp clear to auscultation and percussion. CARDIAC: Normal S1, S2 with no gallops. No murmurs ABDOMEN: Soft. Bowel sounds normal. No organomegaly. No abdominal bruits. Extremities: reveal no edema. No clubbing or cyanosis Neurologically awake, alert, oriented x3 with well-coordinated movements. No focal deficits noted Skin: No rash or skin lesions. Psychiatric: Coperative. Nonsuicidal Musculoskeletal: Bilateral knee joint osteoarthritic changes. Decreased range of motion. Results CBC & Chem 7: 11/16/20 14:52 11/16/20 14:52 Labs: Abnormal Lab Results - Last 24 Hours (Table) 11/16/20 11/16/20 11/16/20 Range/Units 14:52 14:52 14:52 RBC 2.82 L (4.30-5.90) m/uL Hgb 10.3 L (13.0-17.5) gm/dL Hct 30.9 L (39.0-53.0) % MCV 109.6 H (80.0-100.0) fL MCH 36.4 H (25.0-35.0) pg Neutrophils # 8.5 H (1.3-7.7) k/uL Lymphocytes # 0.5 L (1.0-4.8) k/uL Macrocytosis Marked A Sodium 133 L (137-145) mmol/L Potassium 5.4 H (3.5-5.1) mmol/L Carbon Dioxide 17 L (22-30) mmol/L BUN 66 H (9-20) mg/dL Creatinine 3.00 H (0.66-1.25) mg/dL Glucose 115 H (74-99) mg/dL Magnesium 2.4 H (1.6-2.3) mg/dL Total Protein 6.0 L (6.3-8.2) g/dL Albumin 3.2 L (3.5-5.0) g/dL Urine Protein 1+ H (Negative) Urine Blood Moderate H (Negative) Ur Leukocyte Esterase Large H (Negative) Urine RBC 16 H (0-5) /hpf Urine WBC >182 H (0-5) /hpf Urine WBC Clumps Many H (None) /hpf Thrombosis Risk Factor Assmnt - DVT/VTE Prophylaxis DVT/VTE Prophylaxis: Pharmacologic Prophylaxis ordered Assessment and Plan Assessment: Generalized weakness and fatigue Acute kidney injury with chronic kidney disease stage IV, baseline creatinine 1.8 and currently at 3.0 Acute urinary tract infection Hypovolemic hyponatremia Metabolic acidosis Macrocytic anemia with hemoglobin 10.3 Paroxysmal atrial fibrillation. Currently maintaining sinus rhythm. not on AC due to recent hx of GI bleed Elevated BNP level 5180 History of prostate cancer status post radiation History of renal stones status post lithotripsy Hypertension Anemia of chronic disease Macrocytic anemia Mild to moderate protein calorie malnutrition. DVT prophylaxis with heparin subcu Plan: Patient was given IV fluid bolus x2 in the ER. Patient will be continued on normal saline at 75 cc/h. Started on antibiotics involve ceftriaxone and follow-up renal function and urine culture report. Encourage oral intake. Patient is on metoprolol and flecainide for atrial fibrillation. Not on anticoagulation. Patient will be continued on stool softeners and laxatives. Prognosis guarded a t this time. Continue to follow closely. Time with Patient: Greater than 30
[2020-11-17] MEDS: METOPROLOL TARTRATE 25 MG TAB PO SCH ×3 (00:28→21:55)
[2020-11-17] MEDS: FLECAINIDE 50 MG TAB PO SCH ×3 (02:10→21:55)
--- NOTE | 2020-11-17 09:07 | US ---
EXAMINATION TYPE: US kidneys/renal and bladder DATE OF EXAM: 11/17/2020 COMPARISON: Ultrasound 06/03/2020 CLINICAL HISTORY: 89-year-old male SAI. TECHNIQUE: Multiple sonographic images of the kidneys and bladder are obtained. 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 Neither dependent debris versus plaque-like mural based mass marianne ng the posterior wall measuring 6.0 x 4.4 cm. No associated vascularity. Bilateral Jets seen: no IMPRESSION: 1. Ongoing severe bilateral hydronephrosis. 2. Lobulated superior contour of the bladder and either dependent debris versus plaque-like mural bas ed mass along the posterior inferior wall measuring 6.0 x 4.4 cm. Correlate for any known diagnosis a nd also with urine cytology, urinalysis, and direct visualization as clinically indicated.
[2020-11-17 09:23] LABS: HCT 30.3 % (39.6-50.0); HGB 9.3 g/dL (13.0-17.0); MCH 34.4 pg (27.0-32.0); MCHC 30.7 g/dL (32.0-37.0); MCV 112.2 fL (80.0-97.0); Mean Platelet Volume 9.6 fL (9.5-12.2); Platelet Count 222 X 10*3/uL (140-440); RDW 13.6 % (11.5-14.5); WBC 6.45 X 10*3/uL (4.50-10.00)
[2020-11-17] MEDS: TAMSULOSIN 0.4 MG CAP.ER.24H PO SCH (09:34)
[2020-11-17] MEDS: SENNOSIDES-DOCUSATE SODIUM 1 EACH TAB PO SCH (09:34)
[2020-11-17] MEDS: ASPIRIN 81 MG PO SCH (09:34)
--- NOTE | 2020-11-17 09:37 | CDI ---
Documentation Clarification Form Date: 11/17/2020 09:19:51 AM From: Earlene Davis CCS, CCDS Admit Date: 11/16/2020 04:16:00 PM Patient Name: Pb Franco Visit Number: [id number] Discharge Date: ATTENTION: The Clinical Documentation Specialists (CDI) and [facility] Coding Staff appreciate your assistance in clarifying documentation. Please respond to the clarification below the line at the bottom and electronically sign. The CDI & [facility] Coding staff will review the response and follow-up if needed. Please note: Queries are made part of the Legal Health Record. If you have any questions, please contact the author of this message via ITS. Dr. Valarie Armendariz: Malnutrition is documented in the 11/16 History & Physical as Mild to Moderate. Additional clarification regarding the severity of malnutrition is requested. History/Risk Factors per the 11/16 H/P: Paroxysmal Atrial Fibrillation (not on anticoagulation), UTIs, Prostate Cancer status post Radiation, Kidney stones (Passed & surgically removed), Hypertension, Anemia of Chronic Disease, Chronic Low back Pain, Chronic Left Shoulder Pain, Chronic Bilateral Knee Pain, MRSA: ? Urine 2018. Former Smoker. Clinical Indicators: Presented to the ED on 11/16 via EMS with weakness & fatigue, bilateral knee pain & stiffness & left shoulder pain. 1+ pitting edema in bilateral shins. ED Clinical Impression: Fatigue, UTI, Chronic knee pain, Dehydration, SAI. 11/16 VS: T 98.6, P 68, R 16, BP 123/70, PO 99 RA 11/16 LAB: RBC 2.82, Hgb 10.3, Hct 30.9, Neut 8.5, Lymph 0.5; Na 133, K 5.4, CO2 17, BUN 66, Cr 3.00, Glucose 115, Mag 2.4, Total Protein 6.0, Albumin 3.2 UA: Turbid, 1+ Protein, Moderate Blood, Negative Nitrite, Large Esterase, RBC 16, WBC >182 Blood Cultures & Urine culture pending. Nursing Assessment: Requires Assistance, Unsteady gait, Fall Risk, Fall Precautions Height: 5 ft 8 in. Weight: 53.07 kg (bedscale) IBW: 154.00 lbs. BMI: 17.8 Treatment 11/16: IV Toradol 15 mg x1, po Aspirin 325 mg x1, IV Na Cl 1,000 mls @ 999 mls/hr q1H x2, IV Narcan 0.2 mg prn, IV Na Cl 1,000 mls @ 75 mls/hr q13H, IV Rocephin 100 mls/hr q24H. Telemetry. Heart Healthy Diet. Dietary was not consulted. Please clarify the type of malnutrition, if known: [ ] Mild Protein-Calorie Malnutrition [ ] Moderate Protein-Calorie Malnutrition [ ] Other condition, please specify [ ] Unable to Determine (Template Last Revised: May 2020) MTDD
--- NOTE | 2020-11-17 09:39 | P.NPCON ---
History of Present Illness - Reason for Consult acute renal failure, chronic renal failure - History of Present Illness Reason for visit patient: Acute kidney injury on chronic kidney disease History of present illness: Patient is a 89-year-old male seen in renal consultation for acute kidney injury on chronic kidney disease. Patient was seen and examined in the emergency room. Patient has chronic kidney disease stage IV. Baseline creatinine the range of 2-2.5 secondary to obstructive uropathy. Patient presented to the hospital with generalized weakness. He did receive 2 L of normal saline on admission and is now maintained on normal saline at 75 mL an hour. Blood pressure has been fairly stable this admission. No fever or chills. No vomiting or diarrhea. Kidney ultrasound on this admission revealed severe bilateral hydronephrosis. UA is suggestive of UTI. He is on IV Rocephin. No history of diabetes. Denies use of nonsteroidals. No family history of renal disease. Vital signs are stable. General: The patient appeared well nourished and normally developed. HEENT: Head exam is unremarkable. Neck is without jugular venous distension. LUNGS: Breath sounds decreased. HEART: Rate and Rhythm are regular. ABDOMEN: Soft, no distention. EXTREMITITES: Swelling of both feet noted. No edema in the lower extremities. Past Medical History Past Medical History: Atrial Fibrillation, Cancer, Hypertension, Prostate Disorder, Renal Disease Additional Past Medical History / Comment(s): Prosate cancer with radiation, ki dney stones passed on his own and surgically removed, UTIs, chronic low back pain, occasional sinus problems. [place]. History of Any Multi-Drug Resistant Organisms: MRSA Date of last positivie culture/infection: 2017 MDRO Source:: urine? family/pt unsure Past Surgical History: Appendectomy, Hernia Repair, Orthopedic Surgery Additional Past Surgical History / Comment(s): Lithotripsy, hiatal hernia repair, L knee open surgery to "clean it out", colonoscopy, circumcism later in life d/t UTIs. Past Anesthesia/Blood Transfusion Reactions: No Reported Reaction Past Psychological History: No Psychological Hx Reported Smoking Status: Never smoker Past Alcohol Use History: None Reported Past Drug Use History: None Reported - Past Family History Father Family Medical History: Hypertension Additional Family Medical History / Comment(s): Father at age 82 from old age. Mother Additional Family Medical History / Comment(s): Mother at age 82 and was in a coma at the time. Patient is unsure of cause of her or causative coma. Brother(s) Additional Family Medical History / Comment(s): Patient has 1 brother that is . He is not know any of his medical history. Patient does not have any sisters. Patient has 4 daughters and 4 sons with no major medical problems. Medications and Allergies Home Medications Medication Instructions Recorded Confirmed Type Cyanocobalamin [Vitamin B-12] 500 mcg PO BID 05/01/19 11/16/20 History Metoprolol Tartrate [Lopressor] 25 mg PO BID 05/01/19 11/16/20 History Tamsulosin [Flomax] 0.4 mg PO DAILY 05/01/19 11/16/20 History Magnesium Oxide 420mg 420 mg PO DAILY 03/12/20 11/16/20 History Aspirin 81 mg PO DAILY 09/20/20 11/16/20 History Multivitamins, Thera [Multivitamin 1 tab PO DAILY 09/20/20 11/16/20 History (formulary)] [place]-3 Fatty Acids/Fish Oil [Fish 2 tab PO DAILY 09/20/20 11/16/20 History Oil 1,000 mg Softgel] Zinc 50 mg PO TID 09/20/20 11/16/20 History Darbepoetin Tez [Aranesp] 60 mcg SQ Q7D syringe 09/24/20 11/16/20 Rx Polyethylene Glycol 3350 [Miralax] 17 gm PO DAILY #527 gm 09/24/20 11/16/20 Rx Sennosides-Docusate Sodium 2 tab PO DAILY #60 tablet 09/24/20 11/16/20 Rx [Senokot-S] Cranberry Fruit Extract [Cranberry] 500 mg PO DAILY 11/16/20 11/16/20 History Allergies Allergy/AdvReac Type Severity Reaction Status Date / Time goserelin Allergy Mild "hot Verified 11/16/20 16:20 flashes" Physical Exam Vitals: Vital Signs Temp Pulse Resp BP Pulse Ox 11/17/20 05:00 69 20 133/59 97 11/17/20 00:38 67 20 126/57 98 11/16/20 23:40 61 18 120/80 98 11/16/20 14:14 98.6 F 68 16 123/70 99 Results - Lab Results Most recent lab results Calcium 8.8 mg/dL (8.4-10.2) 11/16/20 14:52 Magnesium 2.4 mg/dL (1.6-2.3) H 11/16/20 14:52 11/17/20 04:49 11/16/20 14:52 Assessment and Plan Plan: Assessment: 1. Acute kidney injury mostly prerenal from hypovolemia versus progression of underlying chronic kidney disease. Patient has chronic kidney disease stage IV with baseline creatinine in the range of 2-2.5 secondary to obstructive uropathy. Kidney ultrasound done this admission reveals severe bilateral hydronephrosis which seems to be chronic. 2. Metabolic acidosis secondary to chronic kidney disease. 3. Anemia of chronic kidney disease. Rule out iron deficiency. 4. UTI maintained on antibiotics. 5. A. fib. Rate controlled. 6. Hypovolemic hyponatremia. Plan: Maintain IV fluids. Consult urology for the hydronephrosis. Check iron studies. Add oral bicarb. Follow-up cultures. Morning labs pending. Thank you for the consultation. I will continue to follow the patient with you during his hospital stay.
[2020-11-17 10:37] LABS: African American GFR (CKD) 22.3 (60.0-200.0); Albumin 3.3 g/dL (3.80-4.90); Albumin/Globulin Ratio 1.43 (1.60-3.17); Anion Gap 10.1 mmol/L (4.00-12.00); BUN/Creat Ratio 23.21 Ratio (12.00-20.00); Calcium 8.2 mg/dL (8.7-10.3); Carbon Dioxide 16.9 mmol/L (21.6-31.8); Globulin 2.3 g/dL (1.6-3.3); Magnesium 2.1 mg/dL (1.5-2.4); Non-African American GFR(CKD) 19.3 (60.0-200.0); Potassium 5.7 mmol/L (3.5-5.5); Total Bilirubin 0.3 mg/dL (0.2-1.2); Total Protein 5.6 g/dL (6.2-8.2)
--- NOTE | 2020-11-17 11:42 | P.GSCN ---
History of Present Illness Consult date: 11/17/20 History of present illness: The patient is an 89-year-old gentleman in the hospital with generalized weakness and knee pain. The patient is well known to our office and now a patient of , originally for prostate cancer. He is status post radiation therapy and LHRH therapy. His PSA has been relatively low. He has a long history of urinary issues primarily incontinence and incomplete bladder emptying. He has bilateral severe hydronephrosis which is been present for an extended period of time. It is most likely due to patient therapy both to a fixed prostate with chronic incomplete emptying as well as radiation to the distal ureter. This is relatively unchanged. The patient is at his side with his voiding although he does have incontinence. There is been no hematuria dysuria. His urine does look infected on this office visit. Urine culture is pending. Review of Systems All systems: negative Past Medical History Past Medical History: Atrial Fibrillation, Cancer, Hypertension, Prostate Disorder, Renal Disease Additional Past Medical History / Comment(s): Prosate cancer with radiation, kidney stones passed on his own and surgically removed, UTIs, chronic low back pain, occasional sinus problems. [place]. History of Any Multi-Drug Resistant Organisms: MRSA Year Discovered:: 2018 MDRO Source:: urine? family/pt unsure Past Surgical History: Appendectomy, Hernia Repair, Orthopedic Surgery Additional Past Surgical History / Comment(s): Lithotripsy, hiatal hernia repair, L knee open surgery to "clean it out", colonoscopy, circumcism later in life d/t UTIs. Past Anesthesia/Blood Transfusion Reactions: No Reported Reaction Past Psychological History: No Psychological Hx Reported Smoking Status: Never smoker Past Alcohol Use History: None Reported Past Drug Use History: None Reported - Past Family History Father Family Medical History: Hypertension Additional Family Medical History / Comment(s): Father at age 82 from old age. Mother Additional Family Medical History / Comment(s): Mother at age 82 and was in a coma at the time. Patient is unsure of cause of her or causative coma. Brother(s) Additional Family Medical History / Comment(s): Patient has 1 brother that is . He is not know any of his medical history. Patient does not have any sisters. Patient has 4 daughters and 4 sons with no major medical problems. Medications and Allergies Home Medications Medication Instructions Recorded Confirmed Type Cyanocobalamin [Vitamin B-12] 500 mcg PO BID 05/01/19 11/16/20 History Metoprolol Tartrate [Lopressor] 25 mg PO BID 05/01/19 11/16/20 History Tamsulosin [Flomax] 0.4 mg PO DAILY 05/01/19 11/16/20 History Magnesium Oxide 420mg 420 mg PO DAILY 03/12/20 11/16/20 History Aspirin 81 mg PO DAILY 09/20/20 11/16/20 History Multivitamins, Thera [Multivitamin 1 tab PO DAILY 09/20/20 11/16/20 History (formulary)] Cullen-3 Fatty Acids/Fish Oil [Fish 2 tab PO DAILY 09/20/20 11/16/20 History Oil 1,000 mg Softgel] Zinc 50 mg PO TID 09/20/20 11/16/20 History Darbepoetin Tez [Aranesp] 60 mcg SQ Q7D syringe 09/24/20 11/16/20 Rx Polyethylene Glycol 3350 [Miralax] 17 gm PO DAILY #527 gm 09/24/20 11/16/20 Rx Sennosides-Docusate Sodium 2 tab PO DAILY #60 tablet 09/24/20 11/16/20 Rx [Senokot-S] Cranberry Fruit Extract [Cranberry] 500 mg PO DAILY 11/16/20 11/16/20 History Allergies Allergy/AdvReac Type Severity Reaction Status Date / Time goserelin Allergy Mild "hot Verified 11/16/20 16:20 flashes" Surgical - Exam Vital Signs Temp Pulse Resp BP Pulse Ox 98.6 F 68 16 123/70 99 11/16/20 14:14 11/16/20 14:14 11/16/20 14:14 11/16/20 14:14 11/16/20 14:14 - General This is a thin somewhat disheveled somewhat anemic looking 89-year-old gentleman. He is alert oriented and cooperative a. - Eyes PERRL - ENT decreased hearing - Neck no masses - Respiratory normal expansion - Cardiovascular Rhythm: regular - Abdomen Abdomen: soft, non tender - Genitourinary normal penis with no external lesions, testicles present - Musculoskeletal normal posture - Psychiatric oriented to time, oriented to person, oriented to place, speech is normal, memory intact Results - Labs 11/17/20 04:49 11/17/20 04:49 Abnormal Lab Results - Last 24 Hours (Table) 11/16/20 11/16/20 11/16/20 Range/Units 14:52 14:52 14:52 RBC 2.82 L (4.30-5.90) m/uL Hgb 10.3 L (13.0-17.5) gm/dL Hct 30.9 L (39.0-53.0) % MCV 109.6 H (80.0-100.0) fL MCH 36.4 H (25.0-35.0) pg MCHC (32.0-37.0) g/dL Neutrophils # 8.5 H (1.3-7.7) k/uL Lymphocytes # 0.5 L (1.0-4.8) k/uL Macrocytosis Marked A Sodium 133 L (137-145) mmol/L Potassium 5.4 H (3.5-5.1) mmol/L Chloride (96-109) mmol/L Carbon Dioxide 17 L (22-30) mmol/L BUN 66 H (9-20) mg/dL Creatinine 3.00 H (0.66-1.25) mg/dL Est GFR (CKD-EPI)AfAm (60.0-200.0) Est GFR (CKD-EPI)NonAf (60.0-200.0) BUN/Creatinine Ratio (12.00-20.00) Ratio Glucose 115 H (74-99) mg/dL Calcium (8.7-10.3) mg/dL Magnesium 2.4 H (1.6-2.3) mg/dL Total Protein 6.0 L (6.3-8.2) g/dL Albumin 3.2 L (3.5-5.0) g/dL Albumin/Globulin Ratio (1.60-3.17) g/dL Vitamin B12 (200.0-944.0) pg/mL Urine Protein 1+ H (Negative) Urine Blood Moderate H (Negative) Ur Leukocyte Esterase Large H (Negative) Urine RBC 16 H (0-5) /hpf Urine WBC >182 H (0-5) /hpf Urine WBC Clumps Many H (None) /hpf 11/17/20 11/17/20 Range/Units 04:49 04:49 RBC 2.70 L (4.30-5.90) m/uL Hgb 9.3 L (13.0-17.5) gm/dL Hct 30.3 L (39.0-53.0) % MCV 112.2 H (80.0-100.0) fL MCH 34.4 H (25.0-35.0) pg MCHC 30.7 L (32.0-37.0) g/dL Neutrophils # (1.3-7.7) k/uL Lymphocytes # (1.0-4.8) k/uL Macrocytosis Sodium (137-145) mmol/L Potassium 5.7 H (3.5-5.1) mmol/L Chloride 111 H (96-109) mmol/L Carbon Dioxide 16.9 L (22-30) mmol/L BUN 65.0 H (9-20) mg/dL Creatinine 2.8 H (0.66-1.25) mg/dL Est GFR (CKD-EPI)AfAm 22.3 L (60.0-200.0) Est GFR (CKD-EPI)NonAf 19.3 L (60.0-200.0) BUN/Creatinine Ratio 23.21 H (12.00-20.00) Ratio Glucose (74-99) mg/dL Calcium 8.2 L (8.7-10.3) mg/dL Magnesium (1.6-2.3) mg/dL Total Protein 5.6 L (6.3-8.2) g/dL Albumin 3.30 L (3.5-5.0) g/dL Albumin/Globulin Ratio 1.43 L (1.60-3.17) g/dL Vitamin B12 1161.0 H (200.0-944.0) pg/mL Urine Protein (Negative) Urine Blood (Negative) Ur Leukocyte Esterase (Negative) Urine RBC (0-5) /hpf Urine WBC (0-5) /hpf Urine WBC Clumps (None) /hpf Microbiology - Last 24 Hours (Table) 11/16/20 14:52 Urine Culture - Preliminary Urine,Catheterized Diabetes panel 11/16/20 11/17/20 Range/Units 14:52 04:49 Sodium 133 L 138 (137-145) mmol/L Potassium 5.4 H 5.7 H (3.5-5.1) mmol/L Chloride 107 111 H (98-107) mmol/L Carbon Dioxide 17 L 16.9 L (22-30) mmol/L BUN 66 H 65.0 H (9-20) mg/dL Creatinine 3.00 H 2.8 H (0.66-1.25) mg/dL Glucose 115 H 104 (74-99) mg/dL Calcium 8.8 8.2 L (8.4-10.2) mg/dL AST 20 25 (17-59) U/L ALT 11 16 (4-49) U/L Alkaline Phosphatase 104 99 (38-126) U/L Total Protein 6.0 L 5.6 L (6.3-8.2) g/dL Albumin 3.2 L 3.30 L (3.5-5.0) g/dL Thyroid panel 11/17/20 Range/Units 04:49 TSH 4.170 (0.350-5.500) uIU/mL Calcium panel 11/16/20 11/17/20 Range/Units 14:52 04:49 Calcium 8.8 8.2 L (8.4-10.2) mg/dL Albumin 3.2 L 3.30 L (3.5-5.0) g/dL Pituitary panel 11/16/20 11/17/20 Range/Units 14:52 04:49 Sodium 133 L 138 (137-145) mmol/L Potassium 5.4 H 5.7 H (3.5-5.1) mmol/L Chloride 107 111 H (98-107) mmol/L Carbon Dioxide 17 L 16.9 L (22-30) mmol/L BUN 66 H 65.0 H (9-20) mg/dL Creatinine 3.00 H 2.8 H (0.66-1.25) mg/dL Glucose 115 H 104 (74-99) mg/dL Calcium 8.8 8.2 L (8.4-10.2) mg/dL TSH 4.170 (0.350-5.500) uIU/mL Adrenal panel 11/16/20 11/17/20 Range/Units 14:52 04:49 Sodium 133 L 138 (137-145) mmol/L Potassium 5.4 H 5.7 H (3.5-5.1) mmol/L Chloride 107 111 H (98-107) mmol/L Carbon Dioxide 17 L 16.9 L (22-30) mmol/L BUN 66 H 65.0 H (9-20) mg/dL Creatinine 3.00 H 2.8 H (0.66-1.25) mg/dL Glucose 115 H 104 (74-99) mg/dL Calcium 8.8 8.2 L (8.4-10.2) mg/dL Total Bilirubin 0.6 0.3 (0.2-1.3) mg/dL AST 20 25 (17-59) U/L ALT 11 16 (4-49) U/L Alkaline Phosphatase 104 99 (38-126) U/L Total Protein 6.0 L 5.6 L (6.3-8.2) g/dL Albumin 3.2 L 3.30 L (3.5-5.0) g/dL - Imaging CT scan - abdomen: report reviewed, image reviewed CT scan - pelvis: report reviewed, image reviewed US - kidney/bladder: report reviewed, image reviewed Assessment and Plan Assessment: Impression: Generalized weakness. Probable urinary infection. Chronic urinary incontinence. History of prostate cancer treated with radiation. 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 History of incomplete bladder emptying. Recommendations: There is really nothing we will do for the bilateral hydronephrosis. We'll check a postvoid residual to determine how well he is urinating.
[2020-11-17 13:21] LABS: Basophils # (A) 0.01 X 10*3/uL (0.00-0.10); Basophils % (A) 0.2 %; Eosinophils # (A) 0.27 X 10*3/uL (0.04-0.35); Eosinophils % (A) 4.2 %; Lymphocytes # (A) 0.24 X 10*3/uL (0.90-5.00); Lymphocytes % (A) 3.7 %; Monocytes % (A) 3.1 %; Neutrophils % (A) 88.3 %
[2020-11-17 13:22] LABS: Macrocytosis (M) 2+
[2020-11-17] MEDS: SODIUM BICARBONATE TAB 650 MG TAB PO SCH ×2 (13:55→21:55)
[2020-11-17] MEDS: SODIUM CHLORIDE 0.9% 1,000 ML IV SCH (18:19)
[2020-11-17] MEDS: DEXTROSE 5% IN WATER 1,000 ML with SODIUM BICARB (1 MEQ/ML) 150 ML IV SCH (19:37)
[2020-11-17 21:49] LABS: % Iron Saturation 7.06 (15.00-50.00); Ferritin 706.5 ng/mL (22.0-322.0)
[2020-11-18] MEDS: SODIUM BICARBONATE TAB 650 MG TAB PO SCH ×2 (08:14→20:28)
[2020-11-18] MEDS: SENNOSIDES-DOCUSATE SODIUM 1 EACH TAB PO SCH (08:14)
[2020-11-18] MEDS: ASPIRIN 81 MG PO SCH (08:15)
[2020-11-18] MEDS: FLECAINIDE 50 MG TAB PO SCH ×2 (08:15→20:28)
[2020-11-18] MEDS: TAMSULOSIN 0.4 MG CAP.ER.24H PO SCH (08:16)
[2020-11-18] MEDS: METOPROLOL TARTRATE 25 MG TAB PO SCH ×2 (08:23→20:28)
[2020-11-18 09:48] LABS: African American GFR (CKD) 28.3 (60.0-200.0); Anion Gap 8.8 mmol/L (4.00-12.00); BUN/Creat Ratio 25.65 Ratio (12.00-20.00); Calcium 8.3 mg/dL (8.7-10.3); Carbon Dioxide 17.2 mmol/L (21.6-31.8); Non-African American GFR(CKD) 24.4 (60.0-200.0); Potassium 5.2 mmol/L (3.5-5.5)
--- NOTE | 2020-11-18 10:44 | P.PN ---
Subjective Patient is seen in follow-up for acute kidney injury on chronic kidney disease. Renal function is improving. Creatinine 2.3 today. Maintained on bicarb drip. Acidosis mildly improved. Has been voiding. Incontinent. Vital signs are stable. General: The patient appeared well nourished and normally developed. HEENT: Head exam is unremarkable. Neck is without jugular venous distension. LUNGS: Breath sounds decreased. HEART: Rate and Rhythm are regular. ABDOMEN: Soft, no distention. EXTREMITITES: No edema. Objective - Vital Signs Vital signs: Vital Signs Temp 97.9 F 11/18/20 05:15 Pulse 69 11/18/20 08:21 Resp 16 11/18/20 05:15 BP 145/55 11/18/20 05:15 Pulse Ox 97 11/18/20 08:21 Intake & Output 11/17/20 11/18/20 11/18/20 18:59 06:59 18:59 Weight 48 kg Other: Voiding Method Diaper # Voids 2 - Labs CBC & Chem 7: 11/17/20 04:49 11/18/20 04:59 Labs: Abnormal Lab Results - Last 24 Hours (Table) 11/17/20 11/17/20 11/17/20 Range/Units 04:49 04:49 04:49 Lymphocytes # 0.24 L (0.90-5.00) X 10*3/uL Potassium (3.5-5.1) mmol/L Chloride (96-109) mmol/L Carbon Dioxide (21.6-31.8) mmol/L BUN (9.0-27.0) mg/dL Creatinine (0.6-1.5) mg/dL Est GFR (CKD-EPI)AfAm (60.0-200.0) Est GFR (CKD-EPI)NonAf (60.0-200.0) BUN/Creatinine Ratio (12.00-20.00) Ratio Calcium (8.7-10.3) mg/dL Iron 12 L (65-175) ug/dL TIBC 170 L (228-460) ug/dL % Saturation 7.06 L (15.00-50.00) Ferritin 706.5 H (22.0-322.0) ng/mL Vitamin B12 1161.0 H (200.0-944.0) pg/mL 11/17/20 11/18/20 Range/Units 18:53 04:59 Lymphocytes # (0.90-5.00) X 10*3/uL Potassium 5.3 H (3.5-5.1) mmol/L Chloride 111 H (96-109) mmol/L Carbon Dioxide 17.2 L (21.6-31.8) mmol/L BUN 59.0 H (9.0-27.0) mg/dL Creatinine 2.3 H (0.6-1.5) mg/dL Est GFR (CKD-EPI)AfAm 28.3 L (60.0-200.0) Est GFR (CKD-EPI)NonAf 24.4 L (60.0-200.0) BUN/Creatinine Ratio 25.65 H (12.00-20.00) Ratio Calcium 8.3 L (8.7-10.3) mg/dL Iron (65-175) ug/dL TIBC (228-460) ug/dL % Saturation (15.00-50.00) Ferritin (22.0-322.0) ng/mL Vitamin B12 (200.0-944.0) pg/mL Microbiology - Last 24 Hours (Table) 11/16/20 14:52 Urine Culture - Final Urine,Catheterized 11/16/20 14:52 Blood Culture - Preliminary Blood No Growth after 24 hours 11/16/20 14:52 Blood Culture - Preliminary Blood No Growth after 24 hours Assessment and Plan Plan: Assessment: 1. Acute kidney injury mostly prerenal from hypovolemia versus progression of underlying chronic kidney disease. Patient has chronic kidney disease stage IV with baseline creatinine in the range of 2-2.5 secondary to obstructive uropathy. Kidney ultrasound done this admission reveals severe bilateral hydronephrosis which seems to be chronic. No intervention is planned per urology. Renal function improving. Creatinine 2.3 today. 2. Metabolic acidosis secondary to acute kidney injury/chronic kidney disease. 3. Anemia of chronic kidney disease. Iron deficiency noted. 4. UTI maintained on antibiotics. 5. A. fib. Rate controlled. 6. Hypovolemic hyponatremia. Improved from admission. Plan: Maintain bicarb drip. Add IV iron. Follow-up cultures. Avoid nephrotoxins. Continue to monitor renal function and urine output.
[2020-11-18] MEDS: SODIUM FERRIC GLUCONAT-SUCROSE 125 MG in SODIUM CHLORIDE 0.9% 100 ML IVPB SCH (11:08)
[2020-11-18] MEDS: DEXTROSE 5% IN WATER 1,000 ML with SODIUM BICARB (1 MEQ/ML) 150 ML IV SCH (11:09)
[2020-11-18 13:42] VITALS: BMI 16.0
[2020-11-19] MEDS: DEXTROSE 5% IN WATER 1,000 ML with SODIUM BICARB (1 MEQ/ML) 150 ML IV SCH ×2 (01:08→14:15)
[2020-11-19] MEDS: ASPIRIN 81 MG PO SCH (08:14)
[2020-11-19] MEDS: FLECAINIDE 50 MG TAB PO SCH ×2 (08:14→20:30)
[2020-11-19] MEDS: SENNOSIDES-DOCUSATE SODIUM 1 EACH TAB PO SCH (08:15)
[2020-11-19] MEDS: SODIUM BICARBONATE TAB 650 MG TAB PO SCH ×2 (08:15→20:29)
[2020-11-19] MEDS: TAMSULOSIN 0.4 MG CAP.ER.24H PO SCH (08:15)
[2020-11-19] MEDS: METOPROLOL TARTRATE 25 MG TAB PO SCH ×2 (08:15→20:29)
[2020-11-19] MEDS: SODIUM FERRIC GLUCONAT-SUCROSE 125 MG in SODIUM CHLORIDE 0.9% 100 ML IVPB SCH (08:19)
--- NOTE | 2020-11-19 09:56 | P.PN ---
Subjective Patient is seen in follow-up for acute kidney injury on chronic kidney disease. Renal function is improving. Creatinine 2.3 yesterday. Maintained on bicarb drip. Has been voiding. Incontinent. Oral intake fair. Morning labs pending. Vital signs are stable. General: The patient appeared well nourished and normally developed. HEENT: Head exam is unremarkable. Neck is without jugular venous distension. LUNGS: Breath sounds decreased. HEART: Rate and Rhythm are regular. ABDOMEN: Soft, no distention. EXTREMITITES: No edema. Objective - Vital Signs Vital signs: Vital Signs Temp 99.2 F 11/19/20 08:22 Pulse 73 11/19/20 04:39 Resp 18 11/19/20 08:00 BP 140/54 11/19/20 04:39 Pulse Ox 97 11/19/20 04:39 Intake & Output 11/18/20 11/19/20 11/19/20 18:59 06:59 18:59 Intake Total 100 1100 Output Total 1 Balance 100 1099 Weight 48 kg Intake: Intake, IV Titration 100 900 Amount Dextrose 5% in Water 1, 900 000 ml @ 75 mls/hr IV . [id number] SAHIL with Sodium Bicarb (1 Meq/ml) 150 ml Rx#:[id number] Sodium Ferric Gluconat- 100 Sucrose 125 mg In Sodium Chloride 0.9% 100 ml @ 100 mls/hr IVPB DAILY SAHIL Rx#:[id number] Oral 200 Output: Urine/Stool Mix 1 Other: Voiding Method Diaper Diaper Diaper # Voids 3 - Labs CBC & Chem 7: 11/17/20 04:49 11/18/20 04:59 Labs: Abnormal Lab Results - Last 24 Hours (Table) 11/17/20 Range/Units 04:49 RBC Folate 1,379 H (280 - 791) ng/mL Microbiology - Last 24 Hours (Table) 11/16/20 14:52 Blood Culture - Preliminary Blood No Growth after 48 hours 11/16/20 14:52 Blood Culture - Preliminary Blood No Growth after 48 hours Assessment and Plan Plan: Assessment: 1. Acute kidney injury mostly prerenal from hypovolemia versus progression of underlying chronic kidney disease. Patient has chronic kidney disease stage IV with baseline creatinine in the range of 2-2.5 secondary to obstructive uropath y. Kidney ultrasound done this admission reveals severe bilateral hydronephrosis which seems to be chronic. No intervention is planned per urology. Renal function improving. Creatinine 2.3 yesterday. 2. Metabolic acidosis secondary to acute kidney injury/chronic kidney disease. On bicarb drip. 3. Anemia of chronic kidney disease. Iron deficiency noted. 4. UTI maintained on antibiotics. 5. A. fib. Rate controlled. 6. Hypovolemic hyponatremia. Improved from admission. Plan: Maintain bicarb drip. Maintain IV iron. Avoid nephrotoxins. Continue to monitor renal function and urine output. Follow-up morning labs. Switch IV fluids normal saline if acidosis improved.
[2020-11-19 10:23] LABS: African American GFR (CKD) 28.3 (60.0-200.0); Anion Gap 6.9 mmol/L (4.00-12.00); BUN/Creat Ratio 23.91 Ratio (12.00-20.00); Calcium 7.9 mg/dL (8.7-10.3); Carbon Dioxide 22.1 mmol/L (21.6-31.8); Magnesium 1.6 mg/dL (1.5-2.4); Non-African American GFR(CKD) 24.4 (60.0-200.0); Potassium 5.1 mmol/L (3.5-5.5)
--- NOTE | 2020-11-19 15:52 | P.PN ---
Subjective Progress Note Date: 11/19/20 Patient is a 89-year-old male with a known history of atrial fibrillation currently not on anticoagulation, hypertension, prostate cancer status post radiation, history of UTIs, chronic low back pain, bilateral knee osteoarthritis and other medical problems presents to ER with complaints of generalized weakness since morning. Patient states that he woke up in the morning and felt very fatigued. Patient was unable to get out of bed. Patient states that she could not straighten his knee due to severe arthritis. Otherwise patient to remain fever or chills. No cough or sputum production. Denied any chest pain or shortness of breath. No nausea vomiting or abdominal pain or diarrhea. Patient also complaining of bilateral knee pain. Denied any abdominal pain. No dysuria hematuria or change in frequency of urination. Patient usually walks around the house with his walker at baseline. He lives with his son. On admission blood pressure 123/70 pulse is 68 respirations 16 and pulse ox 91% on room air. Laboratory data showed WBC 10.1 hemoglobin 10.3 MCV 1019.6, platelets 229 Sodium 133 potassium 5.4 chloride 107 bicarb is 17 BUN 66 and creatinine 3.0 proBNP 5180 Urinalysis showed 1+ protein, moderate blood, large leukocyte esterase and elevated RBCs and WBCs. Chest x-ray showed no evidence of acute cardiopulmonary disease. X-ray of the knees showed no acute fracture or dislocation. Tricompartment joint space appears moderately narrowed bilaterally. Diffuse bony osteopenia. EKG showed sinus rhythm with first-degree AV block. Patient was recently admitted to hospital due to fecal impaction, urinary retention and acute kidney injury with bilateral hydronephrosis. 11/19/2020 Patient is seen and evaluated in follow-up in no acute distress being closely monitored. Nephrology and urology following. Patient continues on sodium bicarb drip and also receiving IV iron 3. Sodium is 134 with a potassium of 5.1 current creatinine is 2.3 and BUN is 55. Magnesium is 1.6 and will replace per protocol and repeat a.m. labs. Urine culture has finalized showing no growth and will continue to monitor closely. Patient continues on empiric antibiotics in the form of IV ceftriaxone. Patient was seen and evaluated by PT/OT therapy recommending subacute rehab for continued weakness and gait dysfunction and social work consulted as patient would like to go to [facility]. Patient did have low-grade intermittent fever of 100 in the middle of the night and will continue to monitor vital signs closely. Review of systems: Constitutional: No reports of fatigue, fever, or chills, reports he is extremely hard of hearing Cardiovascular: No reports of chest pain or palpitations Respiratory: No reports of shortness of breath or cough GI: No reports of nausea, vomiting, or diarrhea : No reports of dysuria or retention Neurovascular: Reports generalized weakness All medications have been reviewed Active Medications Acetaminophen (Acetaminophen Tab 325 Mg Tab) 650 mg PO Q6HR PRN PRN Reason: Mild Pain or Fever > 100.5 Hydrocodone Bitart/Acetaminophen (Hydrocodone/Apap 5-325mg 1 Each Tab) 1 each PO Q4HR PRN PRN Reason: Moderate Pain Aspirin (Aspirin 81 Mg) 81 mg PO DAILY [facility] Last Admin: 11/19/20 08:14 Dose: 81 mg Documented by: Flecainide Acetate (Flecainide 50 Mg Tab) 50 mg PO Q12H [facility] Last Admin: 11/19/20 08:14 Dose: 50 mg Documented by: Ceftriaxone Sodium 1 gm/ (Sodium Chloride) 50 mls @ 100 mls/hr IVPB Q24H [facility] Last Admin: 11/18/20 18:18 Dose: 100 mls/hr Documented by: Sodium Bicarbonate 150 ml/ (Dextrose/Water) 1,150 mls @ 75 mls/hr IV .[id number] [facility] Last Admin: 11/19/20 14:15 Dose: 75 mls/hr Documented by: Ferric Sodium Gluconate 125 mg (/ Sodium Chloride) 110 mls @ 100 mls/hr IVPB DAILY [facility] Stop: 11/21/20 11:01 Last Admin: 11/19/20 08:19 Dose: 100 mls/hr Documented by: Metoprolol Tartrate (Metoprolol Tartrate 25 Mg Tab) 25 mg PO BID [facility] Last Admin: 11/19/20 08:15 Dose: 25 mg Documented by: Naloxone HCl (Naloxone 0.4 Mg/Ml 1 Ml Vial) 0.2 mg IV Q2M PRN PRN Reason: Opioid Reversal Senna/Docusate Sodium (Sennosides-Docusate Sodium 1 Each Tab) 2 each PO DAILY [facility] Last Admin: 11/19/20 08:15 Dose: 2 each Documented by: Sodium Bicarbonate (Sodium Bicarbonate Tab 650 Mg Tab) 650 mg PO BID [facility] Last Admin: 11/19/20 08:15 Dose: 650 mg Documented by: Tamsulosin HCl (Tamsulosin 0.4 Mg Cap.Er.24h) 0.4 mg PO DAILY [facility] Last Admin: 11/19/20 08:15 Dose: 0.4 mg Documented by: Objective - Vital Signs Vital signs: Vital Signs Temp 99.2 F 11/19/20 08:22 Pulse 73 11/19/20 04:39 Resp 18 11/19/20 08:00 BP 140/54 11/19/20 04:39 Pulse Ox 97 11/19/20 04:39 Intake & Output 11/18/20 11/19/20 11/19/20 18:59 06:59 18:59 Intake Total 100 1100 Output Total 1 Balance 100 1099 Weight 48 kg Intake: Intake, IV Titration 100 900 Amount Dextrose 5% in Water 1, 900 000 ml @ 75 mls/hr IV . [id number] [facility]HIL with Sodium Bicarb (1 Meq/ml) 150 ml Rx#:[id number] Sodium Ferric Gluconat- 100 Sucrose 125 mg In Sodium Chloride 0.9% 100 ml @ 100 mls/hr IVPB DAILY [facility] Rx#:[id number] Oral 200 Output: Urine/Stool Mix 1 Other: Voiding Method Diaper Diaper Diaper # Voids 3 - Exam Patient is lying in the bed comfortably, no acute distress, awake alert and oriented. Cachectic HEENT: Normocephalic. Neck is supple. Pupils reactive. Nostrils clear. Oral cavity is moist. Ears reveal no drainage. Neck reveals no JVD, carotid bruits, or thyromegaly. CHEST EXAMINATION: Trachea is central. Symmetrical expansion. Lung rapp clear to auscultation and percussion. CARDIAC: Normal S1, S2 with no gallops. No murmurs ABDOMEN: Soft. Bowel sounds normal. No organomegaly. No abdominal bruits. Extremities: reveal no edema. No clubbing or cyanosis Neurologically awake, alert, oriented x3 with well-coordinated movements. No focal deficits noted Skin: No rash or skin lesions. Psychiatric: Cooperative. Non-suicidal Musculoskeletal: Bilateral knee joint osteoarthritic changes. Decreased range of motion. Diffusely weak - Labs CBC & Chem 7: 11/17/20 04:49 11/19/20 04:41 Labs: Abnormal Lab Results - Last 24 Hours (Table) 11/17/20 Range/Units 04:49 RBC Folate 1,379 H (280 - 791) ng/mL Microbiology - Last 24 Hours (Table) 11/16/20 14:52 Blood Culture - Preliminary Blood No Growth after 48 hours 11/16/20 14:52 Blood Culture - Preliminary Blood No Growth after 48 hours Assessment and Plan Assessment: Generalized weakness and fatigue Acute kidney injury with chronic kidney disease stage IV, baseline creatinine 1.8 and currently at 2.3 Acute urinary tract infection present on admission Hypovolemic hyponatremia Metabolic acidosis Macrocytic anemia with hemoglobin 10.3 Paroxysmal atrial fibrillation. Currently maintaining sinus rhythm. not on AC due to recent hx of GI bleed Elevated BNP level 5180 History of prostate cancer status post radiation History of renal stones status post lithotripsy Hypertension Anemia of chronic disease Macrocytic anemia Mild protein calorie malnutrition with a BMI of 16.1. DVT prophylaxis with heparin subcu No code Plan: Recommend to continue with current medications and management. Nephrology and urology following. Patient is maintained on dextrose in water with sodium bicarb drip and will continue. Patient continues on IV ceftriaxone and urine cultures remain negative and will continue to monitor closely. Patient did have intermittent low-grade temp of 100 and will continue to monitor vital signs closely. Patient was seen and evaluated by physical therapy recommending subacute rehab for continued gait dysfunction and weakness. Patient would like to go to [facility] and social work consult placed. Will repeat a.m. labs and continue to monitor closely. Further recommendations to follow based on the clinical course of the patient. Prognosis remains guarded.
[2020-11-19] MEDS: MAGNESIUM SULFATE-D5W PMX 1 GM in DEXTROSE/WATER 1 100ML.BAG IVPB SCH ×2 (16:45→17:48)
[2020-11-20 07:04] LABS: African American GFR (CKD) 30 (>60 ml/min/1.73 sqM); Anion Gap 7 mmol/L; Blood Urea Nitrogen 56 mg/dL (9-20); Calcium 8.4 mg/dL (8.4-10.2); Carbon Dioxide 27 mmol/L (22-30); Chloride 101 mmol/L (98-107); Glucose 100 mg/dL (74-99); Magnesium 2.3 mg/dL (1.6-2.3); Non-African American GFR(CKD) 26 (>60 ml/min/1.73 sqM); Sodium 135 mmol/L (137-145)
[2020-11-20] MEDS: DEXTROSE 5% IN WATER 1,000 ML with SODIUM BICARB (1 MEQ/ML) 150 ML IV SCH (07:58)
[2020-11-20] MEDS: SODIUM CHLORIDE 0.9% 1,000 ML IV SCH (08:11)
[2020-11-20] MEDS: TAMSULOSIN 0.4 MG CAP.ER.24H PO SCH (08:12)
[2020-11-20] MEDS: SODIUM BICARBONATE TAB 650 MG TAB PO SCH ×2 (08:12→20:50)
[2020-11-20] MEDS: SENNOSIDES-DOCUSATE SODIUM 1 EACH TAB PO SCH (08:12)
[2020-11-20] MEDS: ASPIRIN 81 MG PO SCH (08:12)
[2020-11-20] MEDS: FLECAINIDE 50 MG TAB PO SCH ×2 (08:12→20:50)
[2020-11-20] MEDS: METOPROLOL TARTRATE 25 MG TAB PO SCH ×2 (08:12→20:50)
--- NOTE | 2020-11-20 09:01 | P.PN ---
Subjective Patient is seen in follow-up for acute kidney injury on chronic kidney disease. Renal function is improving. Creatinine 2.16 today. Maintained on bicarb drip. Acidosis improved. Has been voiding. Incontinent. Oral intake fair. Vital signs are stable. General: The patient appeared well nourished and normally developed. HEENT: Head exam is unremarkable. Neck is without jugular venous distension. LUNGS: Breath sounds decreased. HEART: Rate and Rhythm are regular. ABDOMEN: Soft, no distention. EXTREMITITES: No edema. Objective - Vital Signs Vital signs: Vital Signs Temp 98.1 F 11/20/20 04:38 Pulse 69 11/20/20 04:38 Resp 18 11/20/20 04:38 BP 146/61 11/20/20 04:38 Pulse Ox 97 11/20/20 04:38 Intake & Output 11/19/20 11/20/20 11/20/20 18:59 06:59 18:59 Intake Total 900 900 Balance 900 900 Intake: IV 900 Dextrose 5% in Water 1, 900 000 ml @ 75 mls/hr IV . [id number] [facility] with Sodium Bicarb (1 Meq/ml) 150 ml Rx#:[id number] Intake, IV Titration 900 Amount Dextrose 5% in Water 1, 900 000 ml @ 75 mls/hr IV . [id number] [facility] with Sodium Bicarb (1 Meq/ml) 150 ml Rx#:[id number] Other: Voiding Method Diaper Diaper # Voids 2 3 - Labs CBC & Chem 7: 11/17/20 04:49 11/20/20 06:01 Labs: Abnormal Lab Results - Last 24 Hours (Table) 11/19/20 11/20/20 Range/Units 04:41 06:01 Sodium 134 L 135 L (135-145) mmol/L BUN 55.0 H 56 H (9.0-27.0) mg/dL Creatinine 2.3 H 2.16 H (0.6-1.5) mg/dL Est GFR (CKD-EPI)AfAm 28.3 L (60.0-200.0) Est GFR (CKD-EPI)NonAf 24.4 L (60.0-200.0) BUN/Creatinine Ratio 23.91 H (12.00-20.00) Ratio Glucose 100 H (74-99) mg/dL Calcium 7.9 L (8.7-10.3) mg/dL Microbiology - Last 24 Hours (Table) 11/16/20 14:52 Blood Culture - Preliminary Blood No Growth after 72 hours 11/16/20 14:52 Blood Culture - Preliminary Blood No Growth after 72 hours Assessment and Plan Plan: Assessment: 1. Acute kidney injury mostly prerenal from hypovolemia versus progression of underlying chronic kidney disease. Patient has chronic kidney disease stage IV with baseline creatinine in the range of 2-2.5 secondary to obstructive uropathy. Kidney ultrasound done this admission reveals severe bilateral hydronephrosis which seems to be chronic. No intervention is planned per urology. Renal function improving. Creatinine 2.16. 2. Metabolic acidosis secondary to acute kidney injury/chronic kidney disease. On bicarb drip. 3. Anemia of chronic kidney disease. Iron deficiency noted. 4. UTI maintained on antibiotics. 5. A. fib. Rate controlled. 6. Hypovolemic hyponatremia. Improved from admission. Plan: Stop bicarb drip. Start normal saline at 50 mL an hour for maintenance fluids. Encouraged oral intake. Maintain IV iron. Avoid nephrotoxins. Continue to monitor renal function and urine output.
[2020-11-20] MEDS: SODIUM FERRIC GLUCONAT-SUCROSE 125 MG in SODIUM CHLORIDE 0.9% 100 ML IVPB SCH (11:43)
[2020-11-21] MEDS: SODIUM CHLORIDE 0.9% 1,000 ML IV SCH (04:20)
[2020-11-21] MEDS: FLECAINIDE 50 MG TAB PO SCH ×2 (08:12→20:11)
[2020-11-21] MEDS: ASPIRIN 81 MG PO SCH (08:12)
[2020-11-21] MEDS: SODIUM BICARBONATE TAB 650 MG TAB PO SCH ×2 (08:12→20:11)
[2020-11-21] MEDS: METOPROLOL TARTRATE 25 MG TAB PO SCH ×2 (08:12→20:11)
[2020-11-21] MEDS: TAMSULOSIN 0.4 MG CAP.ER.24H PO SCH (08:12)
[2020-11-21] MEDS: SENNOSIDES-DOCUSATE SODIUM 1 EACH TAB PO SCH (08:12)
--- NOTE | 2020-11-21 09:17 | P.PN ---
Subjective Patient is seen in follow-up for acute kidney injury on chronic kidney disease. Renal function is improving. Creatinine 2.16 yesterday. Maintained on IV fluids. Has been voiding. Incontinent. Oral intake fair. No changes overnight. Vital signs are stable. General: The patient appeared well nourished and normally developed. HEENT: Head exam is unremarkable. Neck is without jugular venous distension. LUNGS: Breath sounds decreased. HEART: Rate and Rhythm are regular. ABDOMEN: Soft, no distention. EXTREMITITES: No edema. Objective - Vital Signs Vital signs: Vital Signs Temp 98.3 F 11/21/20 04:20 Pulse 74 11/21/20 04:20 Resp 16 11/21/20 04:20 BP 137/67 11/21/20 04:20 Pulse Ox 92 L 11/21/20 04:20 Intake & Output 11/20/20 11/21/20 11/21/20 18:59 06:59 18:59 Intake Total 100 850 Balance 100 850 Weight 48 kg Intake: Intake, IV Titration 100 550 Amount Sodium Chloride 0.9% 1, 500 000 ml @ 50 mls/hr IV . Q20H [facility] Rx#:[id number] Sodium Ferric Gluconat- 100 Sucrose 125 mg In Sodium Chloride 0.9% 100 ml @ 100 mls/hr IVPB DAILY [facility] Rx#:[id number] cefTRIAXone 1 gm In 50 Sodium Chloride 0.9% 50 ml @ 100 mls/hr IVPB Q24H [facility] Rx#:[id number] Oral 300 Other: Voiding Method Diaper Diaper Diaper # Voids 6 3 # Bowel Movements 6 2 - Labs CBC & Chem 7: 11/17/20 04:49 11/20/20 06:01 Labs: Microbiology - Last 24 Hours (Table) 11/16/20 14:52 Blood Culture - Preliminary Blood No Growth after 96 hours 11/16/20 14:52 Blood Culture - Preliminary Blood No Growth after 96 hours Assessment and Plan Plan: Assessment: 1. Acute kidney injury mostly prerenal from hypovolemia versus progression of underlying chronic kidney disease. Patient has chronic kidney disease stage IV with baseline creatinine in the range of 2-2.5 secondary to obstructive uropathy. Kidney ultrasound done this admission reveals severe bilateral hydronephrosis which seems to be chronic. No intervention is planned per urology. Renal function improving. Creatinine 2.16. 2. Metabolic acidosis secondary to acute kidney injury/chronic kidney disease. Resolved. Status post bicarb drip. 3. Anemia of chronic kidney disease. Iron deficiency noted. 4. UTI maintained on antibiotics. 5. A. fib. Rate controlled. 6. Hypovolemic hyponatremia. Improved from admission. Plan: Maintain IV fluids. Encouraged oral intake. Maintain IV iron. Avoid nephrotoxins. Continue to monitor renal function and urine output.
[2020-11-21 09:34] LABS: African American GFR (CKD) 31.6 (60.0-200.0); Anion Gap 6.6 mmol/L (4.00-12.00); BUN/Creat Ratio 24.29 Ratio (12.00-20.00); Calcium 7.8 mg/dL (8.7-10.3); Carbon Dioxide 23.4 mmol/L (21.6-31.8); Magnesium 1.8 mg/dL (1.5-2.4); Non-African American GFR(CKD) 27.3 (60.0-200.0); Potassium 4.6 mmol/L (3.5-5.5)
[2020-11-21] MEDS: SODIUM FERRIC GLUCONAT-SUCROSE 125 MG in SODIUM CHLORIDE 0.9% 100 ML IVPB SCH (10:17)
[2020-11-22] MEDS: SODIUM CHLORIDE 0.9% 1,000 ML IV SCH
[2020-11-22] MEDS: SODIUM BICARBONATE TAB 650 MG TAB PO SCH (08:50)
[2020-11-22] MEDS: FLECAINIDE 50 MG TAB PO SCH (08:51)
[2020-11-22] MEDS: TAMSULOSIN 0.4 MG CAP.ER.24H PO SCH (08:51)
[2020-11-22] MEDS: ASPIRIN 81 MG PO SCH (08:51)
[2020-11-22] MEDS: SENNOSIDES-DOCUSATE SODIUM 1 EACH TAB PO SCH (08:51)
[2020-11-22] MEDS: METOPROLOL TARTRATE 25 MG TAB PO SCH (08:51)
--- NOTE | 2020-11-22 09:29 | P.PN ---
Subjective Patient is seen in follow-up for acute kidney injury on chronic kidney disease. Renal function is improving. Creatinine 2.1 yesterday. Maintained on IV fluids. Has been voiding. Incontinent. Oral intake fair. No changes overnight. Patient is very hard of hearing. Vital signs are stable. General: The patient appeared well nourished and normally developed. HEENT: Head exam is unremarkable. Neck is without jugular venous distension. LUNGS: Breath sounds decreased. HEART: Rate and Rhythm are regular. ABDOMEN: Soft, no distention. EXTREMITITES: No edema. Objective - Vital Signs Vital signs: Vital Signs Temp 98.2 F 11/22/20 05:17 Pulse 75 11/22/20 05:17 Resp 18 11/22/20 05:17 BP 131/59 11/22/20 05:17 Pulse Ox 94 L 11/22/20 05:17 Intake & Output 11/21/20 11/22/20 11/22/20 18:59 06:59 18:59 Intake Total 900 Balance 900 Intake: Intake, IV Titration 500 Amount Sodium Chloride 0.9% 1, 500 000 ml @ 50 mls/hr IV . Q20H [facility] Rx#:[id number] Oral 400 Other: Voiding Method Diaper Diaper Diaper Incontinent Incontinent # Voids 3 2 # Bowel Movements 4 3 - Labs CBC & Chem 7: 11/17/20 04:49 11/21/20 06:31 Labs: Abnormal Lab Results - Last 24 Hours (Table) 11/21/20 Range/Units 06:31 BUN 51.0 H (9.0-27.0) mg/dL Creatinine 2.1 H (0.6-1.5) mg/dL Est GFR (CKD-EPI)AfAm 31.6 L (60.0-200.0) Est GFR (CKD-EPI)NonAf 27.3 L (60.0-200.0) BUN/Creatinine Ratio 24.29 H (12.00-20.00) Ratio Calcium 7.8 L (8.7-10.3) mg/dL Microbiology - Last 24 Hours (Table) 11/16/20 14:52 Blood Culture - Preliminary Blood No Growth after 120 hours 11/16/20 14:52 Blood Culture - Preliminary Blood No Growth after 120 hours Assessment and Plan Plan: Assessment: 1. Acute kidney injury mostly prerenal from hypovolemia versus progression of underlying chronic kidney disease. Patient has chronic kidney disease stage IV with baseline creatinine in the range of 2-2.5 secondary to obstructive uropathy. Kidney ultrasound done this admission reveals severe bilateral hydronephrosis which seems to be chronic. No intervention is planned per urology. Renal function improving. Creatinine 2.16. 2. Metabolic acidosis secondary to acute kidney injury/chronic kidney disease. Resolved. Status post bicarb drip. 3. Anemia of chronic kidney disease. Iron deficiency noted. 4. UTI maintained on antibiotics. 5. A. fib. Rate controlled. 6. Hypovolemic hyponatremia. Improved from admission. Plan: Maintain IV fluids. Encouraged oral intake. Maintain IV iron. Avoid nephrotoxins. Continue to monitor renal function and urine output. No changes from nephrology standpoint today.
[2020-11-22 13:19] VITALS: BP 123/53; PULSE 68; RESP 19; TEMP 98.4
--- NOTE | 2020-11-22 13:41 | P.DS ---
Providers Date of admission: 11/16/20 16:16 Expected date of discharge: 11/22/20 Attending physician: Velvet Santos Consults: 11/17/20 00:18 Consult Physician Routine Consulting Provider: Ran Talamantes Consult Reason/Comments: SAI Do you want consulting provider notified?: Yes, Notify in am 11/17/20 09:37 Consult Physician Routine Consulting Provider: Dain Johnson Consult Reason/Comments: b/l hydro Do you want consulting provider notified?: Yes Primary care physician: [facility] Hospital Course: Final diagnosis Generalized weakness and fatigue Acute kidney injury with chronic kidney disease stage IV Acute urinary tract infection, present on admission Hypovolemic hyponatremia Metabolic acidosis Macrocytic anemia Paroxysmal atrial fibrillation. Currently maintaining sinus rhythm. not on AC due to recent hx of GI bleed Elevated BNP level 5180 History of prostate cancer status post radiation History of renal stones status post lithotripsy Hypertension Anemia of chronic disease Macrocytic anemia Mild protein calorie malnutrition with a BMI of 16.1. DVT prophylaxis with heparin subcu No code Discharge disposition Patient is being discharged in a stable condition with guarded prognosis to [facility]. Patient will follow-up with Dr. Valdovinos upon discharge. Patient will follow with the [facility] in the outpatient setting. Patient to follow-up with nephrology outpatient and recommend repeat labs in 2-3 days to monitor kidney functions along with electrolytes. Patient to continue with sodium bicarb for now. Total time taken is greater than 35 minutes. Hospital course Patient is a 89-year-old male with a known history of atrial fibrillation currently not on anticoagulation, hypertension, prostate cancer status post radiation, history of UTIs, chronic low back pain, bilateral knee osteoarthritis and other medical problems presents to ER with complaints of generalized weakness since morning. Patient states that he woke up in the morning and felt very fatigued. Patient was unable to get out of bed. Patient states that she could not straighten his knee due to severe arthritis. Otherwise patient to remain fever or chills. No cough or sputum production. Denied any chest pain or shortness of breath. No nausea vomiting or abdominal pain or diarrhea. Patient also complaining of bilateral knee pain. Denied any abdominal pain. No dysuria hematuria or change in frequency of urination. Patient usually walks around the house with his walker at baseline. He lives with his son. On admission blood pressure 123/70 pulse is 68 respirations 16 and pulse ox 91% on room air. Laboratory data showed WBC 10.1 hemoglobin 10.3 MCV 1019.6, platelets 229 Sodium 133 potassium 5.4 chloride 107 bicarb is 17 BUN 66 and creatinine 3.0 proBNP 5180 Urinalysis showed 1+ protein, moderate blood, large leukocyte esterase and elevated RBCs and WBCs. Chest x-ray showed no evidence of acute cardiopulmonary disease. X-ray of the k ides showed no acute fracture or dislocation. Tricompartment joint space appears moderately narrowed bilaterally. Diffuse bony osteopenia. EKG showed sinus rhythm with first-degree AV block. Patient was recently admitted to hospital due to fecal impaction, urinary retention and acute kidney injury with bilateral hydronephrosis. 11/19/2020 Patient is seen and evaluated in follow-up in no acute distress being closely monitored. Nephrology and urology following. Patient continues on sodium bicarb drip and also receiving IV iron 3. Sodium is 134 with a potassium of 5.1 current creatinine is 2.3 and BUN is 55. Magnesium is 1.6 and will replace per protocol and repeat a.m. labs. Urine culture has finalized showing no growth and will continue to monitor closely. Patient continues on empiric antibiotics in the form of IV ceftriaxone. Patient was seen and evaluated by PT/OT therapy recommending subacute rehab for continued weakness and gait dysfunction and social work consulted as patient would like to go to [facility]. Patient did have low-grade intermittent fever of 100 in the middle of the night and will continue to monitor vital signs closely. 11/22/2020 Patient is seen in follow-up this morning and has been accepted at [facility]. Patient has been treated adequately with IV antibiotic therapy and will not require any antibiotics on discharge is urine culture is negative. Patient will follow-up with nephrology outpatient and recommend repeat labs in 2-3 days to monitor BMP and magnesium. Patient to continue with heart healthy diet. Patient is extremely hard of hearing. Patient continues to be weak requiring continued PT/OT therapy for strength and mobility. Currently no reports of chest pain, shortness of breath, or palpitations. Patient is afebrile. No reports of nausea or vomiting and patient is tolerating diet. Patient will be going to [facility] today. Patient is lying in the bed comfortably, no acute distress, awake alert and oriented. Cachectic HEENT: Normocephalic. Neck is supple. Pupils reactive. Nostrils clear. Oral cavity is moist. Ears reveal no drainage. Neck reveals no JVD, carotid bruits, or thyromegaly. CHEST EXAMINATION: Trachea is central. Symmetrical expansion. Lung rapp clear to auscultation and percussion. CARDIAC: Normal S1, S2 with no gallops. No murmurs ABDOMEN: Soft. Bowel sounds normal. No organomegaly. No abdominal bruits. Extremities: reveal no edema. No clubbing or cyanosis Neurologically awake, alert, oriented x3 with well-coordinated movements. No focal deficits noted Skin: No rash or skin lesions. Psychiatric: Cooperative. Non-suicidal Musculoskeletal: Bilateral knee joint osteoarthritic changes. Decreased range of motion. Diffusely weak On exam vital signs are stable. Cardio S1, S2 are muffled. Respiratory shows diminished breath sounds at the bases with no wheezing or rhonchi noted. Abdomen is soft and nontender. Nervous system shows mild diffuse weakness. Please refer to medication reconciliation sheet for a list of medications. Patient Condition at Discharge: Stable Plan - Discharge Summary Discharge Rx Participant: No New Discharge Prescriptions: New Flecainide [Tambocor] 50 mg PO Q12H tab Sodium Bicarbonate Tab 650 mg PO BID tab Acetaminophen Tab [Tylenol] 650 mg PO Q6HR PRN tab PRN Reason: Mild Pain Or Fever > 100.5 Continue Cyanocobalamin [Vitamin B-12] 500 mcg PO BID Tamsulosin [Flomax] 0.4 mg PO DAILY Metoprolol Tartrate [Lopressor] 25 mg PO BID Magnesium Oxide 420mg 420 mg PO DAILY Multivitamins, Thera [Multivitamin (formulary)] 1 tab PO DAILY [place]-3 Fatty Acids/Fish Oil [Fish Oil 1,000 mg Softgel] 2 tab PO DAILY Aspirin 81 mg PO DAILY Zinc 50 mg PO TID Sennosides-Docusate Sodium [Senokot-S] 2 tab PO DAILY #60 tablet Darbepoetin Tez [Aranesp] 60 mcg SQ Q7D syringe Cranberry Fruit Extract [Cranberry] 500 mg PO DAILY Discontinued Polyethylene Glycol 3350 [Miralax] 17 gm PO DAILY #527 gm Discharge Medication List Cyanocobalamin [Vitamin B-12] 500 mcg PO BID 05/01/19 [History] Metoprolol Tartrate [Lopressor] 25 mg PO BID 05/01/19 [History] Tamsulosin [Flomax] 0.4 mg PO DAILY 05/01/19 [History] Magnesium Oxide 420mg 420 mg PO DAILY 03/12/20 [History] Aspirin 81 mg PO DAILY 09/20/20 [History] Multivitamins, Thera [Multivitamin (formulary)] 1 tab PO DAILY 09/20/20 [History] [place]-3 Fatty Acids/Fish Oil [Fish Oil 1,000 mg Softgel] 2 tab PO DAILY 09/20/20 [History] Zinc 50 mg PO TID 09/20/20 [History] Darbepoetin Tez [Aranesp] 60 mcg SQ Q7D syringe 09/24/20 [Rx] Sennosides-Docusate Sodium [Senokot-S] 2 tab PO DAILY #60 tablet 09/24/20 [Rx] Cranberry Fruit Extract [Cranberry] 500 mg PO DAILY 11/16/20 [History] Acetaminophen Tab [Tylenol] 650 mg PO Q6HR PRN tab 11/22/20 [Rx] Flecainide [Tambocor] 50 mg PO Q12H tab 11/22/20 [Rx] Sodium Bicarbonate Tab 650 mg PO BID tab 11/22/20 [Rx] Follow up Appointment(s)/Referral(s): Ran Talamantes DO [STAFF PHYSICIAN] - 1 Week [facility],Clinic [Primary Care Provider] - 1-2 days Ambulatory/Diagnostic Orders: Complete Blood Count w/diff [LAB.AMB] Time Frame: 3 Days, Location: None Selected Activity/Diet/Wound Care/Special Instructions: Patient is going to [facility] Activity as tolerated Recommend repeat labs of CBC and BMP to monitor kidney functions along with electrolytes Follow-up with nephrology outpatient Follow-up with primary care provider upon discharge Recommend continuing with heart healthy diet Discharge Disposition: TRANSFER TO SNF/ECF
[2020-11-22 16:29] LABS: African American GFR (CKD) 29.9 (60.0-200.0); BUN/Creat Ratio 21.36 Ratio (12.00-20.00); Calcium 8.3 mg/dL (8.7-10.3); Magnesium 1.7 mg/dL (1.5-2.4); Non-African American GFR(CKD) 25.8 (60.0-200.0); Potassium 4.9 mmol/L (3.5-5.5)
== END 2020-11-22 17:06 | DRG 683 ==
LOC: EC 14:10 → 4SSUR 16:16 → 5NMEDONC 11-17 16:09
PROVIDERS: ADMIT Internal Medicine; ATTEND Internal Medicine
DX: N17.9 Acute kidney failure, unspecified (principal); N39.0 Urinary tract infection, site not specified; E87.1 Hypo-osmolality and hyponatremia; E44.0 Moderate protein-calorie malnutrition; E87.2 Acidosis; Z68.1 Body mass index [BMI] 19.9 or less, adult; R64 Cachexia; Z16.24 Resistance to multiple antibiotics; N13.6 Pyonephrosis; N18.4 Chronic kidney disease, stage 4 (severe); D63.1 Anemia in chronic kidney disease; E86.0 Dehydration; E86.1 Hypovolemia; E87.5 Hyperkalemia; G89.29 Other chronic pain; I12.9 Hypertensive chronic kidney disease with stage 1 through stage 4 chronic kidney disease, or unspecified chronic kidney disease; I48.0 Paroxysmal atrial fibrillation; M19.90 Unspecified osteoarthritis, unspecified site; Z87.442 Personal history of urinary calculi; Z92.3 Personal history of irradiation; Z85.46 Personal history of malignant neoplasm of prostate; Z82.49 Family history of ischemic heart disease and other diseases of the circulatory system; Z79.899 Other long term (current) drug therapy; Z79.82 Long term (current) use of aspirin; R32 Unspecified urinary incontinence; M85.80 Other specified disorders of bone density and structure, unspecified site; E61.1 Iron deficiency; M54.5 Low back pain; H91.90 Unspecified hearing loss, unspecified ear; C61 Malignant neoplasm of prostate
CPT/HCPCS: 36415; 71046; 76770; 80048; 80053; 81001; 82607; 82728; 82747; 83540; 83550; 83605; 83735; 83880; 84132; 84443; 84484; 85025; 85610; 85730; 87040; 87086; 87635; 93005; 96374; 99285

== ENCOUNTER 2021-04-12 21:55 | Inpatient (IN) | payer MEDICARE, OTHER ==
[2021-04-12] MEDS ORDERED: SODIUM CHLORIDE 0.9% 1,000 ML IV STA (22:17)
[2021-04-12 22:50] LABS: Basophils % (A) 0 %; Eosinophils # (A) 0.3 k/uL (0-0.7); Eosinophils % (A) 4 %; HCT 30.8 % (39.0-53.0); HGB 9.8 gm/dL (13.0-17.5); Lymphocytes # (A) 0.8 k/uL (1.0-4.8); Lymphocytes % (A) 11 %; MCH 32.2 pg (25.0-35.0); MCHC 31.7 g/dL (31.0-37.0); MCV 101.8 fL (80.0-100.0); Macrocytosis Slight; Mean Platelet Volume 7.1; Monocytes # (A) 0.5 k/uL (0-1.0); Monocytes % (A) 7 %; Neutrophils # (A) 5.7 k/uL (1.3-7.7); Neutrophils % (A) 76 %; Platelet Count 448 k/uL (150-450); RBC 3.03 m/uL (4.30-5.90); RDW 14.3 % (11.5-15.5); WBC 7.5 k/uL (3.8-10.6)
--- NOTE | 2021-04-12 22:51 | ED ---
Arrhythmia/Palpitations HPI - General Chief Complaint: Arrhythmia/Palpitations Stated Complaint: Bradycardia Time Seen by Provider: 04/12/21 22:17 Source: patient, EMS, RN notes reviewed, old records reviewed Mode of arrival: EMS Limitations: no limitations - History of Present Illness Initial Comments: This is an 89-year-old male DF for evaluation. Patient presents as a no code DO NOT RESUSCITATE patient. Patient is being evaluated here for evaluation of low heart rate. Patient himself during questioning has no complaints states he is repeated because, he is ready to go to have an injury to . He is afraid of . Patient per EMS has transported our hospital for evaluation regards to low heart rate MD Complaint: "skipped beats", palpitations -: unknown Context: occurred during rest Associated Symptoms: denies other symptoms Treatments Prior to Arrival: other (none) - Related Data Home Medications Medication Instructions Recorded Confirmed Cyanocobalamin [Vitamin B-12] 500 mcg PO BID@0800,209905/01/19 04/12/21 Metoprolol Tartrate [Lopressor] 25 mg PO BID@0800,169905/01/19 04/12/21 Tamsulosin [Flomax] 0.4 mg PO DAILY@0805/01/19 04/12/21 Magnesium Oxide 420mg 420 mg PO DAILY@169903/12/20 04/12/21 Aspirin 81 mg PO DAILY@79909/20/20 04/12/21 Multivitamins, Thera [Multivitamin 1 tab PO DAILY@79909/20/20 04/12/21 (formulary)] [place]-3 Fatty Acids/Fish Oil [Fish 2 cap PO DAILY@79909/20/20 04/12/21 Oil 1,000 mg Softgel] Zinc 50 mg PO DAILY@79909/20/20 04/12/21 Cranberry Fruit Extract [Cranberry] 500 mg PO DAILY@79911/16/20 04/12/21 Acetaminophen Tab [Tylenol] 650 mg PO Q6HR PRN 04/12/21 04/12/21 Darbepoetin Tez [Aranesp] 60 mcg SQ SA@79904/12/21 04/12/21 Flecainide [Tambocor] 50 mg PO BID@0800,209904/12/21 04/12/21 Lactose-Reduced Food [Ensure Plus] 237 ml PO TID@0800,1200,1700 04/12/21 04/12/21 Magnesium Hydroxide [Milk of 7,200 mg PO DAILY PRN 04/12/21 04/12/21 Magnesia Concentrate] Sennosides-Docusate Sodium 2 tab PO DAILY@0800 04/12/21 04/12/21 [Senokot-S] Sodium Bicarbonate Tab 650 mg PO BID@0800,2100 04/12/21 04/12/21 Sodium Zirconium Cyclosilicate 10 gm PO Q48H 04/12/21 04/12/21 [Lokelma] bisacodyL [Dulcolax] 10 mg RECTAL DAILY PRN 04/12/21 04/12/21 Allergies Allergy/AdvReac Type Severity Reaction Status Date / Time goserelin Allergy Mild "hot Verified 04/12/21 22:39 flashes" furosemide Allergy Unknown Verified 04/12/21 22:39 Review of Systems ROS Statement: Those systems with pertinent positive or pertinent negative responses have been documented in the HPI. ROS Other: All systems not noted in ROS Statement are negative. Past Medical History Past Medical History: Atrial Fibrillation, Cancer, Hypertension, Prostate Disorder, Renal Disease Additional Past Medical History / Comment(s): Prosate cancer with radiation, kidney stones passed on his own and surgically removed, UTIs, chronic low back pain, occasional sinus problems. [place]. History of Any Multi-Drug Resistant Organisms: MRSA Date of last positivie culture/infection: 2017 MDRO Source:: urine? family/pt unsure Past Surgical History: Appendectomy, Hernia Repair, Orthopedic Surgery Additional Past Surgical History / Comment(s): Lithotripsy, hiatal hernia repair, L knee open surgery to "clean it out", colonoscopy, circumcism later in life d/t UTIs. Past Anesthesia/Blood Transfusion Reactions: No Reported Reaction Past Psychological History: No Psychological Hx Reported Smoking Status: Former smoker Past Alcohol Use History: None Reported Past Drug Use History: None Reported - Past Family History Father Family Medical History: Hypertension Additional Family Medical History / Comment(s): Father at age 82 from old age. Mother Additional Family Medical History / Comment(s): Mother at age 82 and was in a coma at the time. Patient is unsure of cause of her or causative coma. Brother(s) Additional Family Medical History / Comment(s): Patient has 1 brother that is . He is not know any of his medical history. Patient does not have any sisters. Patient has 4 daughters and 4 sons with no major medical problems. General Exam Limitations: no limitations General appearance: alert, in no apparent distress, lethargic Head exam: Present: atraumatic, normocephalic, normal inspection Eye exam: Present: normal appearance, PERRL, EOMI. Absent: scleral icterus, conjunctival injection, periorbital swelling ENT exam: Present: normal exam, mucous membranes dry Neck exam: Present: normal inspection. Absent: tenderness, meningismus, lymphadenopathy Respiratory exam: Present: normal lung sounds bilaterally. Absent: respiratory distress, wheezes, rales, rhonchi, stridor Cardiovascular Exam: Present: normal rhythm, bradycardia, normal heart sounds. Absent: systolic murmur, diastolic murmur, rubs, gallop, clicks GI/Abdominal exam: Present: soft, normal bowel sounds. Absent: distended, tenderness, guarding, rebound, rigid Extremities exam: Present: normal inspection, full ROM, normal capillary refill. Absent: tenderness, pedal edema, joint swelling, calf tenderness Back exam: Present: normal inspection Neurological exam: Present: alert, oriented X3, CN II-XII intact Psychiatric exam: Present: normal affect, normal mood Skin exam: Present: warm, dry, intact, normal color. Absent: rash Course Vital Signs 04/12/21 04/12/21 04/13/21 22:21 23:52 00:00 Pulse Rate 91 32 L 32 L Respiratory 16 Rate Blood Pressure 134/84 97/47 97/47 O2 Sat by Pulse 97 95 97 Oximetry 04/13/21 04/13/21 04/13/21 01:00 02:00 02:58 Pulse Rate 32 L 34 L 33 L Respiratory 18 Rate Blood Pressure 139/53 131/49 O2 Sat by Pulse 98 98 95 Oximetry 04/13/21 04:33 Pulse Rate 32 L Respiratory 18 Rate Blood Pressure 103/53 O2 Sat by Pulse 96 Oximetry - Reevaluation(s) Reevaluation #1: 04/13/21 05:34 Medical record is reviewed Reevaluation #2: 04/13/21 05:34 Patient blood pressure is maintaining well despite low heart rate Rate does appear to go between 50s and 30s Reevaluation #3: 04/13/21 05:35 Patient continues to deny any significant complaints Reevaluation #4: 04/13/21 05:35 Spoke with family to reiterated do not CODE STATUS - Consultations Consultation #1: Spoke with Dr. Tejada who agrees to admit this patient EKG Findings - EKG Comments: EKG Findings:: EKG is junctional bradycardia rate 26 QRS 10 QTc 442 Medical Decision Making - Medical Decision Making 89 male to the ER for evaluation patient Dese for evaluation of low heart rate patient does have significant low heart rate here in the ER with significant renal failure. Patient does also has significant urinary tract infection with dehydration. Patient be admitted for supportive care - Lab Data Result diagrams: 04/12/21 22:39 04/12/21 22:39 Lab Results 04/12/21 04/12/21 04/12/21 Range/Units 22:39 22:39 22:39 WBC 7.5 (3.8-10.6) k/uL RBC 3.03 L (4.30-5.90) m/uL Hgb 9.8 L (13.0-17.5) gm/dL Hct 30.8 L (39.0-53.0) % MCV 101.8 H (80.0-100.0) fL MCH 32.2 (25.0-35.0) pg MCHC 31.7 (31.0-37.0) g/dL RDW 14.3 (11.5-15.5) % Plt Count 448 (150-450) k/uL MPV 7.1 Neutrophils % 76 % Lymphocytes % 11 % Monocytes % 7 % Eosinophils % 4 % Basophils % 0 % Neutrophils # 5.7 (1.3-7.7) k/uL Lymphocytes # 0.8 L (1.0-4.8) k/uL Monocytes # 0.5 (0-1.0) k/uL Eosinophils # 0.3 (0-0.7) k/uL Basophils # 0.0 (0-0.2) k/uL Macrocytosis Slight PT 10.7 (9.0-12.0) sec INR 1.0 (<1.2) APTT 28.8 (22.0-30.0) sec Sodium 131 L (137-145) mmol/L Potassium 4.6 (3.5-5.1) mmol/L Chloride 97 L (98-107) mmol/L Carbon Dioxide 24 (22-30) mmol/L Anion Gap 10 mmol/L BUN 125 H* (9-20) mg/dL Creatinine 3.23 H (0.66-1.25) mg/dL Est GFR (CKD-EPI)AfAm 19 (>60 ml/min/1.73 sqM) Est GFR (CKD-EPI)NonAf 16 (>60 ml/min/1.73 sqM) Glucose 106 H (74-99) mg/dL Plasma Lactic Acid Santos (0.7-2.0) mmol/L Calcium 9.1 (8.4-10.2) mg/dL Phosphorus 4.9 H (2.5-4.5) mg/dL Magnesium 3.2 H (1.6-2.3) mg/dL Total Bilirubin 0.5 (0.2-1.3) mg/dL AST 22 (17-59) U/L ALT 13 (4-49) U/L Alkaline Phosphatase 101 (38-126) U/L Troponin I (0.000-0.034) ng/mL NT-Pro-B Natriuret Pep pg/mL Total Protein 6.5 (6.3-8.2) g/dL Albumin 3.4 L (3.5-5.0) g/dL Urine Color Urine Appearance (Clear) Urine pH (5.0-8.0) Ur Specific [place] (1.001-1.035) Urine Protein (Negative) Urine Glucose (UA) (Negative) Urine Ketones (Negative) Urine Blood (Negative) Urine Nitrite (Negative) Urine Bilirubin (Negative) Urine Urobilinogen (<2.0) mg/dL Ur Leukocyte Esterase (Negative) Urine RBC (0-5) /hpf Urine WBC (0-5) /hpf Urine WBC Clumps (None) /hpf Urine Bacteria (None) /hpf Coronavirus (PCR) (Not Detectd) 04/12/21 04/12/21 04/12/21 Range/Units 22:39 22:39 22:39 WBC (3.8-10.6) k/uL RBC (4.30-5.90) m/uL Hgb (13.0-17.5) gm/dL Hct (39.0-53.0) % MCV (80.0-100.0) fL MCH (25.0-35.0) pg MCHC (31.0-37.0) g/dL RDW (11.5-15.5) % Plt Count (150-450) k/uL MPV Neutrophils % % Lymphocytes % % Monocytes % % Eosinophils % % Basophils % % Neutrophils # (1.3-7.7) k/uL Lymphocytes # (1.0-4.8) k/uL Monocytes # (0-1.0) k/uL Eosinophils # (0-0.7) k/uL Basophils # (0-0.2) k/uL Macrocytosis PT (9.0-12.0) sec INR (<1.2) APTT (22.0-30.0) sec Sodium (137-145) mmol/L Potassium (3.5-5.1) mmol/L Chloride (98-107) mmol/L Carbon Dioxide (22-30) mmol/L Anion Gap mmol/L BUN (9-20) mg/dL Creatinine (0.66-1.25) mg/dL Est GFR (CKD-EPI)AfAm (>60 ml/min/1.73 sqM) Est GFR (CKD-EPI)NonAf (>60 ml/min/1.73 sqM) Glucose (74-99) mg/dL Plasma Lactic Acid Santos 1.2 (0.7-2.0) mmol/L Calcium (8.4-10.2) mg/dL Phosphorus (2.5-4.5) mg/dL Magnesium (1.6-2.3) mg/dL Total Bilirubin (0.2-1.3) mg/dL AST (17-59) U/L ALT (4-49) U/L Alkaline Phosphatase (38-126) U/L Troponin I 0.016 (0.000-0.034) ng/mL NT-Pro-B Natriuret Pep 6610 pg/mL Total Protein (6.3-8.2) g/dL Albumin (3.5-5.0) g/dL Urine Color Urine Appearance (Clear) Urine pH (5.0-8.0) Ur Specific [place] (1.001-1.035) Urine Protein (Negative) Urine Glucose (UA) (Negative) Urine Ketones (Negative) Urine Blood (Negative) Urine Nitrite (Negative) Urine Bilirubin (Negative) Urine Urobilinogen (<2.0) mg/dL Ur Leukocyte Esterase (Negative) Urine RBC (0-5) /hpf Urine WBC (0-5) /hpf Urine WBC Clumps (None) /hpf Urine Bacteria (None) /hpf Coronavirus (PCR) (Not Detectd) 04/13/21 04/13/21 Range/Units 01:01 01:06 WBC (3.8-10.6) k/uL RBC (4.30-5.90) m/uL Hgb (13.0-17.5) gm/dL Hct (39.0-53.0) % MCV (80.0-100.0) fL MCH (25.0-35.0) pg MCHC (31.0-37.0) g/dL RDW (11.5-15.5) % Plt Count (150-450) k/uL MPV Neutrophils % % Lymphocytes % % Monocytes % % Eosinophils % % Basophils % % Neutrophils # (1.3-7.7) k/uL Lymphocytes # (1.0-4.8) k/uL Monocytes # (0-1.0) k/uL Eosinophils # (0-0.7) k/uL Basophils # (0-0.2) k/uL Macrocytosis PT (9.0-12.0) sec INR (<1.2) APTT (22.0-30.0) sec Sodium (137-145) mmol/L Potassium (3.5-5.1) mmol/L Chloride (98-107) mmol/L Carbon Dioxide (22-30) mmol/L Anion Gap mmol/L BUN (9-20) mg/dL Creatinine (0.66-1.25) mg/dL Est GFR (CKD-EPI)AfAm (>60 ml/min/1.73 sqM) Est GFR (CKD-EPI)NonAf (>60 ml/min/1.73 sqM) Glucose (74-99) mg/dL Plasma Lactic Acid Santos (0.7-2.0) mmol/L Calcium (8.4-10.2) mg/dL Phosphorus (2.5-4.5) mg/dL Magnesium (1.6-2.3) mg/dL Total Bilirubin (0.2-1.3) mg/dL AST (17-59) U/L ALT (4-49) U/L Alkaline Phosphatase (38-126) U/L Troponin I (0.000-0.034) ng/mL NT-Pro-B Natriuret Pep pg/mL Total Protein (6.3-8.2) g/dL Albumin (3.5-5.0) g/dL Urine Color Yellow Urine Appearance Turbid (Clear) Urine pH 7.0 (5.0-8.0) Ur Specific [place] 1.017 (1.001-1.035) Urine Protein 2+ H (Negative) Urine Glucose (UA) Negative (Negative) Urine Ketones Negative (Negative) Urine Blood Large H (Negative) Urine Nitrite Negative (Negative) Urine Bilirubin Negative (Negative) Urine Urobilinogen <2.0 (<2.0) mg/dL Ur Leukocyte Esterase Large H (Negative) Urine RBC >182 H (0-5) /hpf Urine WBC >182 H (0-5) /hpf Urine WBC Clumps Many H (None) /hpf Urine Bacteria Moderate H (None) /hpf Coronavirus (PCR) Not Detected (Not Detectd) Critical Care Time Critical Care Time: Yes Total Critical Care Time: 31 Disposition Clinical Impression: Dehydration, UTI (urinary tract infection), SAI (acute kidney injury), Acute renal failure (ARF), Bradycardia Disposition: ADMITTED IP TO THIS [facility] Condition: Serious Is patient prescribed a controlled substance at d/c from ED?: No
[2021-04-12 23:06] LABS: Partial Thromboplastin Time 28.8 sec (22.0-30.0); Prothrombin Time 10.7 sec (9.0-12.0)
[2021-04-12 23:08] LABS: Albumin 3.4 g/dL (3.5-5.0); Calcium 9.1 mg/dL (8.4-10.2); Magnesium 3.2 mg/dL (1.6-2.3); Phosphorus 4.9 mg/dL (2.5-4.5); Potassium 4.6 mmol/L (3.5-5.1); Total Bilirubin 0.5 mg/dL (0.2-1.3); Total Protein 6.5 g/dL (6.3-8.2)
[2021-04-13] MEDS ORDERED: SODIUM CHLORIDE 0.9% 500 ML 500 ML IV STA (00:42)
[2021-04-13] MEDS ORDERED: SODIUM CHLORIDE 0.9% 1,000 ML IV STA (00:42)
[2021-04-13] MEDS ORDERED: LIDOCAINE URO-JET JELLY 2% 5 ML KIT URETHRAL ONE (00:47)
[2021-04-13] MEDS ORDERED: NALOXONE 0.4 MG/ML 1 ML VIAL IV PRN (01:19)
[2021-04-13] MEDS ORDERED: LORazepam 2 MG/ML INJ IV PRN (01:19)
[2021-04-13] MEDS ORDERED: ONDANSETRON 4 MG/2 ML VIAL IVP PRN (01:19)
[2021-04-13] MEDS ORDERED: DEXTROSE 5%-0.45% NACL 1,000 ML IV SCH (01:30)
[2021-04-13 01:38] LABS: Appearance,Urine Turbid (Clear); Bacteria,Urine Moderate /hpf; Bilirubin,Urine Negative (Negative); Blood,Urine Large (Negative); Color,Urine Yellow; Glucose,Urine (UA) Negative (Negative); Ketones,Urine Negative (Negative); Leukocyte Esterase,Urine Large (Negative); Nitrite,Urine Negative (Negative); Protein,Urine 2+ (Negative); RBC,Urine >182 /hpf (0-5); Specific Gravity,Urine 1.017 (1.001-1.035); Urobilinogen,Urine <2.0 mg/dL (<2.0); WBC,Urine >182 /hpf (0-5)
--- NOTE | 2021-04-13 09:35 | P.NPCON ---
History of Present Illness - Reason for Consult acute renal failure, chronic renal failure - History of Present Illness Reason for consultation: Acute kidney injury on chronic kidney disease History of present illness: Patient is a 89-year-old male seen in consultation for acute kidney injury on chronic kidney disease. Patient has chronic kidney disease stage IV with baseline creatinine in the range of 2.5-3. Creatinine on admission was 3.23. Patient presents to the hospital from extended care facility due to bradycardia. Patient's heart rate was noted to be in the 30s. He has been evaluated by cardiology and is currently on IV dopamine. Patient is not a reliable historian. He is also being treated for UTI. Blood pressure stable. No fever or chills. He tested negative for coronavirus. No vomiting or diarrhea. Blood pressure stable. He is on room air. He is currently receiving half-normal saline. No history of diabetes. I don't see any nonsteroidals and his home medication list. Vital signs are stable. Bradycardic. General: The patient appeared well nourished and normally developed. HEENT: Head exam is unremarkable. LUNGS: Breath sounds decreased. HEART: Bradycardic. ABDOMEN: Soft, no distention. EXTREMITITES: No edema. Past Medical History Past Medical History: Atrial Fibrillation, Cancer, Hypertension, Prostate Disorder, Renal Disease Additional Past Medical History / Comment(s): Prosate cancer with radiation, kidney stones passed on his own and surgically removed, UTIs, chronic low back pain, occasional sinus problems. [place]. History of Any Multi-Drug Resistant Organisms: MRSA Date of last positivie culture/infection: 2017 MDRO Source:: urine? family/pt unsure Past Surgical History: Appendectomy, Hernia Repair, Orthopedic Surgery Additional Past Surgical History / Comment(s): Lithotripsy, hiatal hernia repair, L knee open surgery to "clean it out", colonoscopy, circumcism later in life d/t UTIs. Past Anesthesia/Blood Transfusion Reactions: No Reported Reaction Past Psychological History: No Psychological Hx Reported Smoking Status: Former smoker Past Alcohol Use History: None Reported Past Drug Use History: None Reported - Past Family History Father Family Medical History: Hypertension Additional Family Medical History / Comment(s): Father at age 82 from old age. Mother Additional Family Medical History / Comment(s): Mother at age 82 and was in a coma at the time. Patient is unsure of cause of her or causative coma. Brother(s) Additional Family Medical History / Comment(s): Patient has 1 brother that is . He is not know any of his medical history. Patient does not have any sisters. Patient has 4 daughters and 4 sons with no major medical problems. Medications and Allergies Home Medications Medication Instructions Recorded Confirmed Type Cyanocobalamin [Vitamin B-12] 500 mcg PO BID@0800,2100 05/01/19 04/12/21 History Metoprolol Tartrate [Lopressor] 25 mg PO BID@0800,1700 05/01/19 04/12/21 History Tamsulosin [Flomax] 0.4 mg PO DAILY@0805/01/19 04/12/21 History Magnesium Oxide 420mg 420 mg PO DAILY@17003/12/20 04/12/21 History Aspirin 81 mg PO DAILY@0809/20/20 04/12/21 History Multivitamins, Thera [Multivitamin 1 tab PO DAILY@79909/20/20 04/12/21 History (formulary)] [place]-3 Fatty Acids/Fish Oil [Fish 2 cap PO DAILY@0809/20/20 04/12/21 History Oil 1,000 mg Softgel] Zinc 50 mg PO DAILY@79909/20/20 04/12/21 History Cranberry Fruit Extract [Cranberry] 500 mg PO DAILY@0800 11/16/20 04/12/21 History Acetaminophen Tab [Tylenol] 650 mg PO Q6HR PRN 04/12/21 04/12/21 History Darbepoetin Tez [Aranesp] 60 mcg SQ SA@79904/12/21 04/12/21 History Flecainide [Tambocor] 50 mg PO BID@0800,2100 04/12/21 04/12/21 History Lactose-Reduced Food [Ensure Plus] 237 ml PO TID@0800,1200,1700 04/12/21 04/12/21 History Magnesium Hydroxide [Milk of 7,200 mg PO DAILY PRN 04/12/21 04/12/21 History Magnesia Concentrate] Sennosides-Docusate Sodium 2 tab PO DAILY@0800 04/12/21 04/12/21 History [Senokot-S] Sodium Bicarbonate Tab 650 mg PO BID@0800,2100 04/12/21 04/12/21 History Sodium Zirconium Cyclosilicate 10 gm PO Q48H 04/12/21 04/12/21 History [Lokelma] bisacodyL [Dulcolax] 10 mg RECTAL DAILY PRN 04/12/21 04/12/21 History Allergies Allergy/AdvReac Type Severity Reaction Status Date / Time goserelin Allergy Mild "hot Verified 04/12/21 22:39 flashes" furosemide Allergy Unknown Verified 04/12/21 22:39 Physical Exam Vitals: Vital Signs Pulse Resp BP Pulse Ox 04/13/21 06:23 35 L 16 127/79 94 L 04/13/21 04:33 32 L 18 103/53 96 04/13/21 02:58 33 L 18 95 04/13/21 02:00 34 L 131/49 98 04/13/21 01:00 32 L 139/53 98 04/13/21 00:00 32 L 97/47 97 04/12/21 23:52 32 L 97/47 95 04/12/21 22:21 91 16 134/84 97 Intake and Output 04/12/21 04/13/21 04/13/21 22:59 06:59 14:59 Other: Weight 58.967 kg Results - Lab Results Most recent lab results Calcium 9.1 mg/dL (8.4-10.2) 04/12/21 22:39 Phosphorus 4.9 mg/dL (2.5-4.5) H 04/12/21 22:39 Magnesium 3.2 mg/dL (1.6-2.3) H 04/12/21 22:39 04/12/21 22:39 04/12/21 22:39 Assessment and Plan Plan: Assessment: 1. Acute kidney injury secondary to ATN secondary to hemodynamic instability. Also component of obstructive uropathy. Renal ultrasound from October 2020 sh owed bilateral severe hydronephrosis. Creatinine 3.23 on admission. 2. Chronic kidney disease stage IV secondary to nephrosclerosis with baseline creatinines range of 2.5-3. 3. Bradycardia maintained on IV dopamine. Cardiology following. 4. Anemia of chronic kidney disease. 5. UTI on antibiotics. 6. History of prostate cancer status post radiation. 7. 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 Has been evaluated by urology in the past. 8. Hyponatremia secondary to acute kidney injury. Plan: Change IV fluids to normal saline at 50 mL an hour. Check chest x-ray. Check bladder scan to rule out urinary retention. Repeat renal ultrasound. Follow-up cultures. Avoid nephrotoxins. Check iron studies. Thank you for the consultation. I will continue to follow the patient with you during his hospital stay.
--- NOTE | 2021-04-13 10:39 | XR ---
EXAMINATION TYPE: XR chest 1V DATE OF EXAM: 04/13/2021 COMPARISON: Chest x-ray 11/16/2020 HISTORY: Shortness of breath TECHNIQUE: Single frontal view of the chest is obtained. FINDINGS: There is no focal air space opacity, pleural effusion, or pneumothorax seen. The cardiac silhouette size is within normal limits. Patient is rotated. Aorta is dense and possibly ectatic. Mallory ng volumes are low. There are overlying leads. Coronary artery calcifications are present. The osseou s structures are stable, mild compression deformity noted in the lower thoracic spine, arthropathy no savita in the left shoulder. IMPRESSION: Expiratory rotated exam, additional findings above, consider PA and lateral chest x-ray for better evaluation when stable.
--- NOTE | 2021-04-13 10:43 | P.CRDCN ---
History of Present Illness Consult date: 04/13/21 History of present illness: HISTORY OF PRESENTING ILLNESS This is a pleasant 89-year-old male past medical history significant for proximal atrial fibrillation, hyperlipidemia, hypertension, CVA. He follows in the office with Dr. Dunlap. We have been asked to see in consultation for bradycardia. Patient lives at [facility], and was found to be bradycardia and confused. Patient has a positive UTI and renal failure. His EKG showed bradycardia with a heart rate of 32. Upon examination patient is resting comfortably in bed with no signs of acute distress pleasant and alert. Patient is confused and A & O 1. Confusion believed to be caused by the UTI. Will s tart patient on dopamine 2.5 mcg for bradycardica. Continue to hold flecainide and metoprolol. Will obtain an echocardiogram. Blood pressure 127/79, heart rate 35, respirations 16, oxygen 94% on room air. DIAGNOSTICS EKG reveals Sinus viviane with a right bundle branch Chest xray pending. Laboratory reviewed, Hgb 9.8, sodium 131, K 4.6, BUN 125, Cr 3.23, mag 3.2, ASt 22, ALT 13, Pro BNP 6610, trop negative. Current cardiac medications include dopamine 2.5 mcg. Home cardiac medications include flecainide 50 mg twice a day, metoprolol tartrate 25 mg twice a day, and aspirin 81 mg daily Review of Systems REVIEW OF SYSTEMS At the time of my exam: CONSTITUTIONAL: Denies fever or chills. EYES: Negative for vision changes ENT: Hard of hearing CARDIOVASCULAR: Denies chest pain, shortness of breath, diaphoresis, orthopnea, PND or palpitations. VASCULAR: Denies edema RESPIRATORY: Denies cough. GASTROINTESTINAL: Denies abdominal pain, diarrhea, constipation, nausea or vomiting. MUSCULOSKELETAL: Denies myalgias. NEUROLOGIC: Denies numbness, tingling, headache or weakness. ENDOCRINE: Denies fatigue, weight change, polydipsia or polyurina. GENITOURINARY: Denies burning, hematuria or urgency with micturation. HEMATOLOGIC: Denies history of anemia or bleeding. DERMATOLOGY: Denies rash or skin sores PSYCH: Negative for depression or hallucinations. Past Medical History Past Medical History: Atrial Fibrillation, Cancer, Hypertension, Prostate Disorder, Renal Disease Additional Past Medical History / Comment(s): Prosate cancer with radiation, kidney stones passed on his own and surgically removed, UTIs, chronic low back pain, occasional sinus problems. SELDOVIA. History of Any Multi-Drug Resistant Organisms: MRSA Date of last positivie culture/infection: 2017 MDRO Source:: urine? family/pt unsure Past Surgical History: Appendectomy, Hernia Repair, Orthopedic Surgery Additional Past Surgical History / Comment(s): Lithotripsy, hiatal hernia repair, L knee open surgery to "clean it out", colonoscopy, circumcism later in life d/t UTIs. Past Anesthesia/Blood Transfusion Reactions: No Reported Reaction Past Psychological History: No Psychological Hx Reported Smoking Status: Former smoker Past Alcohol Use History: None Reported Past Drug Use History: None Reported - Past Family History Father Family Medical History: Hypertension Additional Family Medical History / Comment(s): Father at age 82 from old age. Mother Additional Family Medical History / Comment(s): Mother at age 82 and was in a coma at the time. Patient is unsure of cause of her or causative coma. Brother(s) Additional Family Medical History / Comment(s): Patient has 1 brother that is . He is not know any of his medical history. Patient does not have any sisters. Patient has 4 daughters and 4 sons with no major medical problems. Medications and Allergies Home Medications Medication Instructions Recorded Confirmed Type Cyanocobalamin [Vitamin B-12] 500 mcg PO BID@0800,2100 05/01/19 04/12/21 History Metoprolol Tartrate [Lopressor] 25 mg PO BID@0800,1700 05/01/19 04/12/21 History Tamsulosin [Flomax] 0.4 mg PO DAILY@0800 05/01/19 04/12/21 History Magnesium Oxide 420mg 420 mg PO DAILY@1700 03/12/20 04/12/21 History Aspirin 81 mg PO DAILY@79909/20/20 04/12/21 History Multivitamins, Thera [Multivitamin 1 tab PO DAILY@79909/20/20 04/12/21 History (formulary)] [place]-3 Fatty Acids/Fish Oil [Fish 2 cap PO DAILY@79909/20/20 04/12/21 History Oil 1,000 mg Softgel] Zinc 50 mg PO DAILY@0809/20/20 04/12/21 History Cranberry Fruit Extract [Cranberry] 500 mg PO DAILY@0800 11/16/20 04/12/21 History Acetaminophen Tab [Tylenol] 650 mg PO Q6HR PRN 04/12/21 04/12/21 History Darbepoetin Tez [Aranesp] 60 mcg SQ SA@0800 04/12/21 04/12/21 History Flecainide [Tambocor] 50 mg PO BID@0800,2100 04/12/21 04/12/21 History Lactose-Reduced Food [Ensure Plus] 237 ml PO TID@0800,1200,1700 04/12/21 04/12/21 History Magnesium Hydroxide [Milk of 7,200 mg PO DAILY PRN 04/12/21 04/12/21 History Magnesia Concentrate] Sennosides-Docusate Sodium 2 tab PO DAILY@0800 04/12/21 04/12/21 History [Senokot-S] Sodium Bicarbonate Tab 650 mg PO BID@0800,2100 04/12/21 04/12/21 History Sodium Zirconium Cyclosilicate 10 gm PO Q48H 04/12/21 04/12/21 History [Lokelma] bisacodyL [Dulcolax] 10 mg RECTAL DAILY PRN 04/12/21 04/12/21 History Allergies Allergy/AdvReac Type Severity Reaction Status Date / Time goserelin Allergy Mild "hot Verified 04/12/21 22:39 flashes" furosemide Allergy Unknown Verified 04/12/21 22:39 Physical Exam Vitals: Vital Signs Pulse Resp BP Pulse Ox 04/13/21 06:23 35 L 16 127/79 94 L 04/13/21 04:33 32 L 18 103/53 96 04/13/21 02:58 33 L 18 95 04/13/21 02:00 34 L 131/49 98 04/13/21 01:00 32 L 139/53 98 04/13/21 00:00 32 L 97/47 97 04/12/21 23:52 32 L 97/47 95 04/12/21 22:21 91 16 134/84 97 Intake and Output 04/12/21 04/13/21 04/13/21 22:59 06:59 14:59 Other: Weight 58.967 kg PHYSICAL EXAMINATION VITAL SIGNS: Reviewed CONSTITUTIONAL: No apparent distress. HEENT: Head is normocephalic. Pupils are equal, round. Sclerae anicteric. Mucous membranes of the mouth are moist. NECK: No JVD. No carotid bruit. RESPIRATORY: Lungs are clear to auscultation. No chest wall tenderness is noted on palpation or with deep breathing. CARDIAC: Bradycardia, Regular rhythm. S1, S2 heard. No murmurs, gallops or rub. ABDOMEN: Soft, nontender. EXTREMITIES: 2+ peripheral pulses, no lower extremity edema and no calf tenderness. NEUROLOGIC EXAMINATION: Patient is awake, alert and oriented x1. Pleasantly confused INTEGUMENTARY: Warm, absent for rashes or sores PSYCH: Negative for depression or hallucinations, mood appropriate. Results 04/12/21 22:39 04/12/21 22:39 Cardiac Enzymes 04/12/21 04/12/21 Range/Units 22:39 22:39 AST 22 (17-59) U/L Troponin I 0.016 (0.000-0.034) ng/mL Coagulation 04/12/21 Range/Units 22:39 PT 10.7 (9.0-12.0) sec APTT 28.8 (22.0-30.0) sec CBC 04/12/21 Range/Units 22:39 WBC 7.5 (3.8-10.6) k/uL RBC 3.03 L (4.30-5.90) m/uL Hgb 9.8 L (13.0-17.5) gm/dL Hct 30.8 L (39.0-53.0) % Plt Count 448 (150-450) k/uL Comprehensive Metabolic Panel 04/12/21 Range/Units 22:39 Sodium 131 L (137-145) mmol/L Potassium 4.6 (3.5-5.1) mmol/L Chloride 97 L (98-107) mmol/L Carbon Dioxide 24 (22-30) mmol/L BUN 125 H* (9-20) mg/dL Creatinine 3.23 H (0.66-1.25) mg/dL Glucose 106 H (74-99) mg/dL Calcium 9.1 (8.4-10.2) mg/dL AST 22 (17-59) U/L ALT 13 (4-49) U/L Alkaline Phosphatase 101 (38-126) U/L Total Protein 6.5 (6.3-8.2) g/dL Albumin 3.4 L (3.5-5.0) g/dL Current Medications Generic Name Dose Route Start Last Admin Trade Name Freq PRN Reason Stop Dose Admin Ceftriaxone Sodium 1 gm/ 50 mls @ 100 mls/hr 04/13/21 13:00 Sodium Chloride IVPB Q12H SAIHL Sodium Chloride 1,000 mls @ 50 mls/hr 04/13/21 06:45 Saline 0.9% IV .Q20H SAHIL Dopamine HCl/Dextrose 800 mg/ 250 mls @ 2.764 mls/hr 04/13/21 08:30 IV Solution IV .Q24H SAHIL Protocol 2.5 MCG/KG/MIN Lorazepam 0.5 mg 04/13/21 01:19 Lorazepam 2 Mg/Ml Inj IV Q6HR PRN Anxiety Morphine Sulfate 4 mg 04/13/21 01:19 Morphine Sulfate 4 Mg/Ml Syringe IV Q4HR PRN Severe Pain Naloxone HCl 0.2 mg 04/13/21 01:19 Naloxone 0.4 Mg/Ml 1 Ml Vial IV Q2M PRN Opioid Reversal Ondansetron HCl 4 mg 04/13/21 01:19 Ondansetron 4 Mg/2 Ml Vial IVP Q8HR PRN Nausea And Vomiting Intake and Output 04/12/21 04/13/21 04/13/21 22:59 06:59 14:59 Other: Weight 58.967 kg 04/12/21 22:39 04/12/21 22:39 Assessment and Plan Assessment: Asymptomatic bradycardia Proximal atrial fibrillation Altered mental status likely related to urinary tract infection Acute on chronic renal failure Proximal atrial fibrillation Plan: Start dopamine 2.5 mcg for bradycardia Obtain a 2-D echo Recheck electrolytes tomorrow Continue to hold Lopressor Continue to hold flecainide Continue with telemetry monitoring Further recommendations based on clinical course The above impression and plan of care have been discussed and directed by the signing physician. Linh Crowe, nurse practitioner, acting as scribe for signing physician.
[2021-04-13] MEDS: DOPamine DRIP 800 MG in DEXTROSE/WATER 1 250ML.BAG IV SCH (10:46)
--- NOTE | 2021-04-13 11:07 | US ---
EXAMINATION TYPE: US kidneys/renal and bladder DATE OF EXAM: 04/13/2021 COMPARISON: US CLINICAL HISTORY: kobe. EC patient with hematuria, Kaiser Catheter; UTI; prior hydronephrosis on renal US EXAM MEASUREMENTS: kidneys limitedly seen for renal periphery due to hydronephrosis and renal cysts Right Kidney: 10.3 x 7.1 x 5.7 cm Left Kidney: 12.3 x 7.6 x 6.8 cm Post Void Residual Volume: not assessed on EC patient with Kaiser Catheter Incidental gallbladder findings: Sludge and stones are noted in neck of gallbladder; enlarged gallbla dder also noted as size is greater than 10.0cm. Right Kidney: moderate hydronephrosis with multiple renal cysts and largest cortical cyst seen mid po le = 3.0 x 2.9x 3.0cm. Left Kidney: increased size due to severe hydronephrosis; couple of renal cysts also seen with larges t at lateral pole = 3.5 x 2.6 x 1.8cm. Bladder: internal echoes (bladder debris) noted with Kaiser Catheter also present. Bilateral Jets seen: NA IMPRESSION: 1. Moderate right and severe left hydronephrosis. 2. Multiple bilateral renal stones. 3. Urinary bladder is decompressed with Kaiser catheter 4. Incidental note made of cholelithiasis.
--- NOTE | 2021-04-13 12:00 | ECHOF ---
Referral Reason:poxyminal A. fib MEASUREMENTS -------- HEIGHT: 177.8 cm WEIGHT: 59.0 kg BP: 106/48 RVIDd: 4.9 cm (< 3.3) IVSd: 1.3 cm (0.6 - 1.1) LVIDd: 3.3 cm (3.9 - 5.3) LVPWd: 1.3 cm (0.6 - 1.1) IVSs: 1.7 cm LVIDs: 1.9 cm LVPWs: 1.4 cm Ao Diam: 3.8 cm (2.0 - 3.7) AV Cusp: 1.1 cm (1.5 - 2.6) LA Diam: 4.8 cm (2.7 - 3.8) MV E Valentino: 1.13 m/s MV DecT: 247 ms MV A Valentino: 0.71 m/s MV E/A Ratio: 1.59 AV maxP.43 mmHg AV meanP.30 mmHg RAP: 5.00 mmHg RVSP: 28.73 mmHg FINDINGS -------- Resting bradycardia (HR<60bpm). This was a technically difficult study with suboptimal views. The left ventricular size is normal. There is mild concentric left ventricular hypertrophy. Overa ll left ventricular systolic function is low-normal with, an EF between 50 - 55 %. The right ventricle is moderate to severely enlarged. The left atrium is mildly dilated. The right atrium was not well visualized. 3 ml of Lumason was utilized for enhancement of images. Interatrial and interventricular septum intact. There is moderate aortic valve sclerosis. There is no evidence of aortic regurgitation. There is mild aortic stenosis present. The maximum velocity across the aortic valve is 2.52m/s. Peak/mean gradient across the Aortic Valve is 25.43mmHg / 13.30mmHg. Mild mitral regurgitation is present. Mild tricuspid regurgitation present. There is no evidence of pulmonary hypertension. The right v entricular systolic pressure, as measured by Doppler, is 28.73mmHg. The pulmonic valve was not well visualized. The aortic root size is normal. IVC Not well visulized. There is no pericardial effusion. CONCLUSIONS -------- 1. The left ventricular size is normal. 2. There is mild concentric left ventricular hypertrophy. 3. Overall left ventricular systolic function is low-normal with, an EF between 50 - 55 %. 4. The right ventricle is moderate to severely enlarged. 5. The left atrium is mildly dilated. 6. There is moderate aortic valve sclerosis. 7. There is mild aortic stenosis present. 8. The maximum velocity across the aortic valve is 2.52m/s. 9. Peak/mean gradient across the Aortic Valve is 25.43mmHg / 13.30mmHg. 10. Mild mitral regurgitation is present. 11. Mild tricuspid regurgitation present. ALGEBRA TUTOR: Angelica eD RDCS
[2021-04-13] MEDS: MORPHINE SULFATE 4 MG/ML SYRINGE IV PRN (12:31)
--- NOTE | 2021-04-13 16:13 | HP ---
HISTORY AND PHYSICAL HISTORY OF PRESENT ILLNESS: 89-year-old white male comes in with history of paroxysmal atrial fibrillation, hypertension, dyslipidemia, CVA seen by Cardiology and Dr. Dunlap. Lives at [facility]. Found to be severely confused and bradycardic. He is positive for UTI and severe renal failure with elevated high BUN over 100. He looks like he is severely dehydrated. EKG shows bradycardia with a heart rate around 32. He is around low 30s to 20s. He is possibly going to need a pacemaker. Confused, possibly caused from dehydration and massive urosepsis. Started on a dopamine drip for bradycardia per Cardiology. Cardiology held his flecainide, metoprolol, which he takes at home. His echo has been ordered. Renal physician has been ordered, urosepsis. Infectious Disease ordered and with broad-spectrum Rocephin and fluid rehydration. EKG shows sinus rhythm. Sodium 131, potassium 4.6, BUN 125, creatinine 3.23, Mag 3.2, AST 22, ALT 13. ProBNP 6600. Troponin negative. He is on dopamine at 2.5 mcg daily. They held his flecainide and metoprolol and aspirin. REVIEW OF SYMPTOMS: 14-point review of system reveals he is sleepy, lethargic, Darshan, cough, edema, constipation, GI symptoms, neurologic symptoms. Endocrine negative. Hematology, derm and psych are negative. PAST MEDICAL HISTORY: Atrial fib, hypertension, prostate disorder, renal disease, chronic back pain, history of MRSA. PAST SURGICAL HISTORY: Appendectomy, hernia repair, orthopedic surgery, lithotripsy, hiatal hernia repair, left knee open surgery, circumcision. FAMILY HISTORY: Father hypertension and mother unclear. MEDICATIONS: Home medications see list. ALLERGIES: FUROSEMIDE. PHYSICAL EXAMINATION: Pulse is currently in 30s, respiratory 16 to 18, blood pressure is 90s to low 100 over 50s to 60s. Pulse ox is 94-97. No acute distress. Pupils equal, round, reactive. NECK is supple. RESPIRATORY clear. CARDIAC is Darshan. 2+ edema. Alert, oriented x1. INTEGUMENT: Warm, dry. PSYCH: Negative. Labs reviewed above. IMPRESSION: 1. Asymptomatic bradycardia. 2. Paroxysmal atrial fibrillation. 3. Prerenal renal insufficiency with dehydration. 4. Altered mental status. 5. Urosepsis. 6. Chronic renal failure. 7. Lactic acidosis secondary to renal failure and dehydration from urinary tract infection. 8. Atrial fibrillation. PLAN: Hold all pulse rate limiting drugs including flecainide, Lopressor, replace electrolytes, treat for urosepsis, dopamine for hypotension. Prognosis guarded. MMODL / IJN: [id number] /
[2021-04-13] MEDS ORDERED: SODIUM CHLORIDE 0.9% 1,000 ML IV ONE (16:20)
[2021-04-13 16:54] LABS: T4, Free (Free Thyroxine) 1.53 ng/dL (0.78-2.19)
[2021-04-13] MEDS ORDERED: NON FORMULARY DRUG (Lactose-Reduced Food [Ensure Plus] 237 ML Ml) PO SCH (17:00)
[2021-04-13] MEDS: SODIUM CHLORIDE 0.9% 1,000 ML IV SCH (18:04)
[2021-04-13] MEDS: SODIUM BICARBONATE TAB 650 MG TAB PO SCH ×2 (23:30→23:33)
[2021-04-14 00:59] LABS: % Iron Saturation 17.51 (15.00-50.00)
[2021-04-14] MEDS: SODIUM CHLORIDE 0.9% 1,000 ML IV SCH ×2 (03:10→20:49)
[2021-04-14] MEDS: MULTIVITAMINS, THERA 1 EACH TAB PO SCH (09:04)
[2021-04-14] MEDS: SODIUM BICARBONATE TAB 650 MG TAB PO SCH ×2 (09:04→20:49)
[2021-04-14] MEDS: TAMSULOSIN 0.4 MG CAP.ER.24H PO SCH (09:04)
--- NOTE | 2021-04-14 09:45 | P.PN ---
Subjective Patient is seen in follow-up for acute kidney injury on chronic kidney disease. Heart rate remains low. On IV dopamine. Blood pressure stable. Nonoliguric. Patient is not a reliable historian. Vital signs are stable. General: The patient appeared well nourished and normally developed. HEENT: Head exam is unremarkable. LUNGS: Breath sounds decreased. HEART: Rate and Rhythm are regular. ABDOMEN: Soft, no distention. EXTREMITITES: No edema. Objective - Vital Signs Vital signs: Vital Signs Temp 97.5 F L 04/14/21 04:00 Pulse 38 L 04/14/21 04:00 Resp 17 04/14/21 04:00 BP 137/60 04/14/21 04:00 Pulse Ox 94 L 04/14/21 08:41 Intake & Output 04/13/21 04/14/21 04/14/21 18:59 06:59 18:59 Intake Total 640 Output Total 1600 350 Balance -1600 290 Weight 58.967 kg Intake: Intake, IV Titration 400 Amount Sodium Chloride 0.9% 1, 400 000 ml @ 50 mls/hr IV . Q20H [facility] Rx#:[id number] Oral 240 Output: Urine 1600 350 Other: Voiding Method Indwelling Catheter Indwelling Catheter - Labs CBC & Chem 7: 04/12/21 22:39 04/12/21 22:39 Labs: Abnormal Lab Results - Last 24 Hours (Table) 04/12/21 04/13/21 Range/Units 22:39 15:19 Iron 38 L (65-175) ug/dL TIBC 214 L (228-460) ug/dL Transferrin 153.0 L (204.0-354.0) mg/dL Ferritin 1051.0 H (22.0-322.0) ng/mL TSH 6.990 H (0.465-4.680) mIU/L Free T3 pg/mL 1.9 L (2.8-5.3) pg/ml Microbiology - Last 24 Hours (Table) 04/13/21 01:01 Urine Culture - Preliminary Urine,Catheterized Assessment and Plan Plan: Assessment: 1. Acute kidney injury secondary to ATN secondary to hemodynamic instability. Also component of obstructive uropathy. Creatinine 3.23 on admission. 2. Chronic kidney disease stage IV secondary to nephrosclerosis with baseline creatinines range of 2.5-3. 3. Bradycardia maintained on IV dopamine. Cardiology following. 4. Anemia of chronic kidney disease. On Aranesp. Iron deficiency noted. 5. UTI on antibiotics. 6. History of prostate cancer status post radiation. 7. 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 Has been evaluated by urology in the past. 8. Hyponatremia secondary to acute kidney injury. Plan: Maintain normal saline at 50 mL an hour. Follow-up cultures. Avoid nephrotoxins. Add IV iron. EF preserved. Follow-up morning labs.
[2021-04-14 09:55] VITALS: BMI 18.6
[2021-04-14 10:34] LABS: Basophils % (A) 0 %; Eosinophils # (A) 0.3 k/uL (0-0.7); Eosinophils % (A) 3 %; HCT 28.4 % (39.0-53.0); HGB 8.5 gm/dL (13.0-17.5); Hypochromasia Marked; Lymphocytes # (A) 0.3 k/uL (1.0-4.8); Lymphocytes % (A) 4 %; MCH 31.9 pg (25.0-35.0); MCV 106.4 fL (80.0-100.0); Macrocytosis Moderate; Mean Platelet Volume 6.8; Monocytes # (A) 0.3 k/uL (0-1.0); Monocytes % (A) 4 %; Neutrophils # (A) 7.5 k/uL (1.3-7.7); Neutrophils % (A) 88 %; Platelet Count 365 k/uL (150-450); RBC 2.67 m/uL (4.30-5.90); RDW 14.8 % (11.5-15.5); WBC 8.5 k/uL (3.8-10.6)
[2021-04-14 10:41] LABS: Albumin 2.6 g/dL (3.5-5.0); Magnesium 2.7 mg/dL (1.6-2.3); Potassium 4.3 mmol/L (3.5-5.1); Total Bilirubin 0.4 mg/dL (0.2-1.3); Total Protein 5.4 g/dL (6.3-8.2)
--- NOTE | 2021-04-14 10:41 | PN ---
PROGRESS NOTE An 89-year-old white male is on alcohol withdrawal protocol with Ativan p.r.n., morphine p.r.n. He is on dopamine for bradycardia. He has urosepsis with ureteral hydronephrosis and possible obstruction. He had echo done by Cardiology, which showed a resting bradycardia around 60, ejection fraction 50 to 55%. Cardiology and Nephrology saw him. He had severe bradycardia into the 30s on admission for which he was placed on some dopamine. He has severe bilateral hydronephrosis. Creatinine is 3.23 on admission. Baseline is 2 and half to 3. Bradycardia as mentioned on dopamine. He is being treated for urosepsis, broad- spectrum antibiotics, history of prostate cancer status post radiation, chronic bilateral hydronephrosis secondary to radiation. Today his pulse is still in the 38, 35, 37 range. Temperature 97.5, blood pressure 137/60, O2 is 97 on room air. Labs are pending from this morning. Awaiting. His BNP is 6610. He has hypothyroidism with causing some bradycardia with TSH of 6.9 and free T3 of 1.9. He will be started on Synthroid, which would help with his bradycardia. Await for Cardiology to re-evaluate his bradycardia for possible pacemaker. Wait for a.m. labs to check a BUN and creatinine again, this morning. He has urosepsis and prerenal renal insufficiency. Prognosis is guarded. MMODL / IJN: [id number] /
[2021-04-14 10:47] LABS: Calcium 8.6 mg/dL (8.4-10.2); Phosphorus 4.4 mg/dL (2.5-4.5)
[2021-04-14] MEDS: DOPamine DRIP 800 MG in DEXTROSE/WATER 1 250ML.BAG IV SCH (12:02)
[2021-04-14] MEDS: SODIUM FERRIC GLUCONAT-SUCROSE 125 MG in SODIUM CHLORIDE 0.9% 100 ML IVPB SCH (12:09)
--- NOTE | 2021-04-14 13:15 | P.PN ---
Subjective HISTORY OF PRESENTING ILLNESS This is a pleasant 89-year-old male past medical history significant for paroxysmal atrial fibrillation not on anticoagulation due to GI bleed, hyperlipidemia, hypertension, CVA. He follows with Dr. Dunlap. We have been asked to see in consultation for bradycardia. Patient lives at [facility], and was found to be bradycardia and confused. Patient has a positive UTI and acute renal failure. His EKG showed bradycardia with a heart rate of 32. His flecainide and metoprolol continue to be on hold. Patient seen and examined at bedside, he is alert, confused, oriented to self and place, confused about why he is in the hospital. He continues to state "please let me go", and "Im ready to ". He denies chest pain, shortness of breath, lightheadedness, dizziness. He is currently on dopamine 2.5mcg for bradycardia. Telemetry reviewed, patient continues to have heart rates in the 30s. Patient is a no code and declining any invasive treatments. Blood pressure 137/60, heart rate 50, afebrile, saturations 97% on room air. Echocardiogram revealed EF 50-55%, RV is moderately to severely enlarged, moderate aortic sclerosis, mild aortic stenosis peak/mean gradient of 25mmHg/13 mmHg. Telemetry reviewed, patient appears to be going into episodes of 3rd degree av block this morning, currently sinus bradycardia HR 30s-40s VITALS: BP 118/70 HR 38 , afebrile, 95% on room air GENERAL: In no acute distress. NECK: Supple without JVD or thyromegaly. LUNGS: Breath sounds clear to auscultation bilaterally. Respiration equal and unlabored. No wheezes, rales or rhonchi. HEART: Regular rate and rhythm, systolic ejection murmur, no rubs or gallops. S1 and S2 heard. EXTREMITIES: Normal range of motion, no edema. No clubbing or cyanosis. Peripheral pulses intact. ASSESSMENT Asymptomatic bradycardia Paroxysmal atrial fibrillation, not on anticoagulation due to history of GI Bleed Altered mental status Urinary tract infection Acute on Chronic kidney disease, scr improving. History of hypertension Hyperlipidemia PLAN This morning, patient was adamant on not wanting any further medical/invasive treatment. Patient is confused. Spoke with patient'sAnjali about patient's options and potentially needing a pacemaker based on patient's clinical course. Per patient's son he is not sure what his father would want at this time and would like to discuss it further with his brother. We will continue present therapy and continue to monitor patient and further recommendations based on clinical course. Recommend further family discussion per primary about patient's goals of care. Nurse Practitioner note has been reviewed, I agree with a documented findings and plan of care. Patient was seen and examined. Objective - Vital Signs Vital signs: Vital Signs Temp 97.5 F L 04/14/21 04:00 Pulse 38 L 04/14/21 04:00 Resp 17 04/14/21 04:00 BP 137/60 04/14/21 04:00 Pulse Ox 94 L 04/14/21 08:41 Intake & Output 04/13/21 04/14/21 04/14/21 18:59 06:59 18:59 Intake Total 640 120 Output Total 1600 350 450 Balance -1600 290 -330 Weight 58.967 kg 58.967 kg Intake: Intake, IV Titration 400 Amount Sodium Chloride 0.9% 1, 400 000 ml @ 50 mls/hr IV . Q20H [facility] Rx#:[id number] Oral 240 120 Output: Urine 1600 350 450 Other: Voiding Method Indwelling Catheter Indwelling Catheter - Labs CBC & Chem 7: 04/14/21 09:36 04/14/21 09:36 Labs: Abnormal Lab Results - Last 24 Hours (Table) 04/12/21 04/13/21 04/14/21 Range/Units 22:39 15:19 09:36 RBC (4.30-5.90) m/uL Hgb (13.0-17.5) gm/dL Hct (39.0-53.0) % MCV (80.0-100.0) fL MCHC (31.0-37.0) g/dL Lymphocytes # (1.0-4.8) k/uL Sodium 136 L (137-145) mmol/L Chloride 109 H (98-107) mmol/L Carbon Dioxide 16 L (22-30) mmol/L BUN 93 H (9-20) mg/dL Creatinine 2.60 H (0.66-1.25) mg/dL Magnesium 2.7 H (1.6-2.3) mg/dL Iron 38 L (65-175) ug/dL TIBC 214 L (228-460) ug/dL Transferrin 153.0 L (204.0-354.0) mg/dL Ferritin 1051.0 H (22.0-322.0) ng/mL Total Protein 5.4 L (6.3-8.2) g/dL Albumin 2.6 L (3.5-5.0) g/dL TSH 6.990 H (0.465-4.680) mIU/L Free T3 pg/mL 1.9 L (2.8-5.3) pg/ml 04/14/21 Range/Units 09:36 RBC 2.67 L (4.30-5.90) m/uL Hgb 8.5 L (13.0-17.5) gm/dL Hct 28.4 L (39.0-53.0) % MCV 106.4 H (80.0-100.0) fL MCHC 30.0 L (31.0-37.0) g/dL Lymphocytes # 0.3 L (1.0-4.8) k/uL Sodium (137-145) mmol/L Chloride (98-107) mmol/L Carbon Dioxide (22-30) mmol/L BUN (9-20) mg/dL Creatinine (0.66-1.25) mg/dL Magnesium (1.6-2.3) mg/dL Iron (65-175) ug/dL TIBC (228-460) ug/dL Transferrin (204.0-354.0) mg/dL Ferritin (22.0-322.0) ng/mL Total Protein (6.3-8.2) g/dL Albumin (3.5-5.0) g/dL TSH (0.465-4.680) mIU/L Free T3 pg/mL (2.8-5.3) pg/ml Microbiology - Last 24 Hours (Table) 04/13/21 01:01 Urine Culture - Preliminary Urine,Catheterized
[2021-04-14] MEDS ORDERED: SODIUM BICARB 8.4% 50 ML SYR (1 MEQ/ML) IV STA (14:27)
--- NOTE | 2021-04-14 15:25 | P.GSCN ---
History of Present Illness Consult date: 04/14/21 Reason for Consult: Hydronephrosis History of present illness: The patient is an 89-year-old gentleman admitted to the hospital with the possib le UTI and bradycardia. The patient is well known to our office Hx of prostate cancer. He is status post radiation therapy and LHRH therapy. His PSA has been relatively low. He has a long history of urinary issues primarily incontinence and incomplete bladder emptying. history of chronic bilateral hydronephrosis. His baseline creatinine is 2.5-3. Ultrasound on presentation showed bilateral H ydro, possible stone, Creat today is back to baseline at 2.6. Patient was confused on evaluation, but no evidence of flank pain or gross hematuria, garza placed on presentation Review of Systems ROS unobtainable: due to mental status Past Medical History Past Medical History: Atrial Fibrillation, Cancer, Hyperlipidemia, Hypertension, Prostate Disorder, Renal Disease, Thyroid Disorder Additional Past Medical History / Comment(s): Paroxysmal Afib, prosate cancer with radiation, BPH, CKD stage IV, kidney stones passed on his own and surgically removed, severe bilateral hydronephrosis, UTIs, urine retention, chronic low back pain, hypothyroid, anemia, protein calorie malnutrition, constipation, occasional sinus problems. MILLE LACS. History of Any Multi-Drug Resistant Organisms: MRSA Year Discovered:: 2018 MDRO Source:: urine? family/pt unsure Past Surgical History: Appendectomy, Hernia Repair, Orthopedic Surgery Additional Past Surgical History / Comment(s): Lithotripsy, hiatal hernia repair, L knee open surgery to "clean it out", colonoscopy, circumcism later in life d/t UTIs. Past Anesthesia/Blood Transfusion Reactions: No Reported Reaction Smoking Status: Former smoker - Past Family History Father Family Medical History: Hypertension Additional Family Medical History / Comment(s): Father at age 82 from old age. Mother Additional Family Medical History / Comment(s): Mother at age 82 and was in a coma at the time. Patient is unsure of cause of her or causative coma. Brother(s) Additional Family Medical History / Comment(s): Patient has 1 brother that is . He is not know any of his medical history. Patient does not have any sisters. Patient has 4 daughters and 4 sons with no major medical problems. Medications and Allergies Home Medications Medication Instructions Recorded Confirmed Type Cyanocobalamin [Vitamin B-12] 500 mcg PO BID@0800,2100 05/01/19 04/12/21 History Metoprolol Tartrate [Lopressor] 25 mg PO BID@0800,1700 05/01/19 04/12/21 History Tamsulosin [Flomax] 0.4 mg PO DAILY@0800 05/01/19 04/12/21 History Magnesium Oxide 420mg 420 mg PO DAILY@1700 03/12/20 04/12/21 History Aspirin 81 mg PO DAILY@0809/20/20 04/12/21 History Multivitamins, Thera [Multivitamin 1 tab PO DAILY@0809/20/20 04/12/21 History (formulary)] [place]-3 Fatty Acids/Fish Oil [Fish 2 cap PO DAILY@79909/20/20 04/12/21 History Oil 1,000 mg Softgel] Zinc 50 mg PO DAILY@0809/20/20 04/12/21 History Cranberry Fruit Extract [Cranberry] 500 mg PO DAILY@0800 11/16/20 04/12/21 History Acetaminophen Tab [Tylenol] 650 mg PO Q6HR PRN 04/12/21 04/12/21 History Darbepoetin Tez [Aranesp] 60 mcg SQ SA@79904/12/21 04/12/21 History Flecainide [Tambocor] 50 mg PO BID@0800,209904/12/21 04/12/21 History Lactose-Reduced Food [Ensure Plus] 237 ml PO TID@0800,1200,1700 04/12/21 04/12/21 History Magnesium Hydroxide [Milk of 7,200 mg PO DAILY PRN 04/12/21 04/12/21 History Magnesia Concentrate] Sennosides-Docusate Sodium 2 tab PO DAILY@0800 04/12/21 04/12/21 History [Senokot-S] Sodium Bicarbonate Tab 650 mg PO BID@0800,209904/12/21 04/12/21 History Sodium Zirconium Cyclosilicate 10 gm PO Q48H 04/12/21 04/12/21 History [Lokelma] bisacodyL [Dulcolax] 10 mg RECTAL DAILY PRN 04/12/21 04/12/21 History Allergies Allergy/AdvReac Type Severity Reaction Status Date / Time goserelin Allergy Mild "hot Verified 04/12/21 22:39 flashes" furosemide Allergy Unknown Verified 04/12/21 22:39 Surgical - Exam Vital Signs Pulse Resp BP Pulse Ox 91 16 134/84 97 04/12/21 22:21 04/12/21 22:21 04/12/21 22:21 04/12/21 22:21 - General no distress, no pain - Respiratory normal expansion - Abdomen Abdomen: soft, non tender - Genitourinary Garza in place with clear yellow urine Results - Labs 04/14/21 09:36 04/14/21 09:36 Abnormal Lab Results - Last 24 Hours (Table) 04/12/21 04/13/21 04/14/21 Range/Units 22:39 15:19 09:36 RBC (4.30-5.90) m/uL Hgb (13.0-17.5) gm/dL Hct (39.0-53.0) % MCV (80.0-100.0) fL MCHC (31.0-37.0) g/dL Lymphocytes # (1.0-4.8) k/uL Sodium 136 L (137-145) mmol/L Chloride 109 H (98-107) mmol/L Carbon Dioxide 16 L (22-30) mmol/L BUN 93 H (9-20) mg/dL Creatinine 2.60 H (0.66-1.25) mg/dL Magnesium 2.7 H (1.6-2.3) mg/dL Iron 38 L (65-175) ug/dL TIBC 214 L (228-460) ug/dL Transferrin 153.0 L (204.0-354.0) mg/dL Ferritin 1051.0 H (22.0-322.0) ng/mL Total Protein 5.4 L (6.3-8.2) g/dL Albumin 2.6 L (3.5-5.0) g/dL TSH 6.990 H (0.465-4.680) mIU/L Free T3 pg/mL 1.9 L (2.8-5.3) pg/ml 04/14/21 Range/Units 09:36 RBC 2.67 L (4.30-5.90) m/uL Hgb 8.5 L (13.0-17.5) gm/dL Hct 28.4 L (39.0-53.0) % MCV 106.4 H (80.0-100.0) fL MCHC 30.0 L (31.0-37.0) g/dL Lymphocytes # 0.3 L (1.0-4.8) k/uL Sodium (137-145) mmol/L Chloride (98-107) mmol/L Carbon Dioxide (22-30) mmol/L BUN (9-20) mg/dL Creatinine (0.66-1.25) mg/dL Magnesium (1.6-2.3) mg/dL Iron (65-175) ug/dL TIBC (228-460) ug/dL Transferrin (204.0-354.0) mg/dL Ferritin (22.0-322.0) ng/mL Total Protein (6.3-8.2) g/dL Albumin (3.5-5.0) g/dL TSH (0.465-4.680) mIU/L Free T3 pg/mL (2.8-5.3) pg/ml Microbiology - Last 24 Hours (Table) 04/13/21 01:01 Urine Culture - Preliminary Urine,Catheterized Diabetes panel 04/14/21 Range/Units 09:36 Sodium 136 L (137-145) mmol/L Potassium 4.3 (3.5-5.1) mmol/L Chloride 109 H (98-107) mmol/L Carbon Dioxide 16 L (22-30) mmol/L BUN 93 H (9-20) mg/dL Creatinine 2.60 H (0.66-1.25) mg/dL Glucose 86 (74-99) mg/dL Calcium 8.6 (8.4-10.2) mg/dL AST 19 (17-59) U/L ALT 9 (4-49) U/L Alkaline Phosphatase 78 (38-126) U/L Total Protein 5.4 L (6.3-8.2) g/dL Albumin 2.6 L (3.5-5.0) g/dL Thyroid panel 04/13/21 Range/Units 15:19 TSH 6.990 H (0.465-4.680) mIU/L Calcium panel 04/14/21 Range/Units 09:36 Calcium 8.6 (8.4-10.2) mg/dL Phosphorus 4.4 (2.5-4.5) mg/dL Albumin 2.6 L (3.5-5.0) g/dL Pituitary panel 04/13/21 04/14/21 Range/Units 15:19 09:36 Sodium 136 L (137-145) mmol/L Potassium 4.3 (3.5-5.1) mmol/L Chloride 109 H (98-107) mmol/L Carbon Dioxide 16 L (22-30) mmol/L BUN 93 H (9-20) mg/dL Creatinine 2.60 H (0.66-1.25) mg/dL Glucose 86 (74-99) mg/dL Calcium 8.6 (8.4-10.2) mg/dL TSH 6.990 H (0.465-4.680) mIU/L Adrenal panel 04/14/21 Range/Units 09:36 Sodium 136 L (137-145) mmol/L Potassium 4.3 (3.5-5.1) mmol/L Chloride 109 H (98-107) mmol/L Carbon Dioxide 16 L (22-30) mmol/L BUN 93 H (9-20) mg/dL Creatinine 2.60 H (0.66-1.25) mg/dL Glucose 86 (74-99) mg/dL Calcium 8.6 (8.4-10.2) mg/dL Total Bilirubin 0.4 (0.2-1.3) mg/dL AST 19 (17-59) U/L ALT 9 (4-49) U/L Alkaline Phosphatase 78 (38-126) U/L Total Protein 5.4 L (6.3-8.2) g/dL Albumin 2.6 L (3.5-5.0) g/dL Assessment and Plan Assessment: he patient is an 89-year-old gentleman admitted to the hospital with the possible UTI and bradycardia. Hx of prostate cancer status post radiation therapy and LHRH therapy. His PSA has been relatively low. Long-standing history of incomplete bladder and chronic bilateral hydronephrosis,. Creat 2.6 baseline is 2.5-3. -Given stability of creatinine, chronic nature of hydronephrosis no intervention from urology standpoint, -can perform trial of void prior to discharge, Once garza is removed no need for garza if PVR is less than 300 mL
[2021-04-15] MEDS: LEVOTHYROXINE 75 MCG TAB PO SCH (06:05)
[2021-04-15 08:50] LABS: Basophils % (A) 0 %; Eosinophils # (A) 0.3 k/uL (0-0.7); Eosinophils % (A) 4 %; HCT 26.1 % (39.0-53.0); Hypochromasia Marked; Lymphocytes # (A) 0.5 k/uL (1.0-4.8); Lymphocytes % (A) 7 %; MCH 32.5 pg (25.0-35.0); MCHC 30.5 g/dL (31.0-37.0); MCV 106.4 fL (80.0-100.0); Macrocytosis Moderate; Mean Platelet Volume 7.1; Monocytes # (A) 0.4 k/uL (0-1.0); Monocytes % (A) 5 %; Neutrophils # (A) 6.2 k/uL (1.3-7.7); Neutrophils % (A) 82 %; Platelet Count 311 k/uL (150-450); RBC 2.45 m/uL (4.30-5.90); WBC 7.6 k/uL (3.8-10.6)
[2021-04-15 09:05] LABS: Albumin 2.3 g/dL (3.5-5.0); Calcium 8.3 mg/dL (8.4-10.2); Magnesium 2.5 mg/dL (1.6-2.3); Total Bilirubin 0.3 mg/dL (0.2-1.3)
--- NOTE | 2021-04-15 09:11 | P.PN ---
Subjective Patient is seen in follow-up for acute kidney injury on chronic kidney disease. Heart rate in the 50s. On IV dopamine. Blood pressure stable. Nonoliguric. Renal function improving. Patient is not a reliable historian. Vital signs are stable. On dopamine. General: The patient appeared well nourished and normally developed. HEENT: Head exam is unremarkable. LUNGS: Breath sounds decreased. HEART: Bradycardic. ABDOMEN: Soft, no distention. EXTREMITITES: No edema. Objective - Vital Signs Vital signs: Vital Signs Temp 98 F 04/15/21 03:55 Pulse 52 L 04/15/21 03:55 Resp 18 04/15/21 03:55 BP 153/67 04/15/21 03:55 Pulse Ox 97 04/15/21 03:55 Intake & Output 04/14/21 04/15/21 04/15/21 18:59 06:59 18:59 Intake Total 600 240 Output Total 950 650 Balance -350 -410 Weight 58.967 kg Intake: Oral 600 240 Output: Urine 950 650 Other: Voiding Method Indwelling Catheter Indwelling Catheter # Bowel Movements 1 - Labs CBC & Chem 7: 04/15/21 08:00 04/15/21 08:00 Labs: Abnormal Lab Results - Last 24 Hours (Table) 04/14/21 04/14/21 04/15/21 Range/Units 09:36 09:36 08:00 RBC 2.67 L 2.45 L (4.30-5.90) m/uL Hgb 8.5 L 8.0 L (13.0-17.5) gm/dL Hct 28.4 L 26.1 L (39.0-53.0) % MCV 106.4 H 106.4 H (80.0-100.0) fL MCHC 30.0 L 30.5 L (31.0-37.0) g/dL Lymphocytes # 0.3 L 0.5 L (1.0-4.8) k/uL Sodium 136 L (137-145) mmol/L Chloride 109 H (98-107) mmol/L Carbon Dioxide 16 L (22-30) mmol/L BUN 93 H (9-20) mg/dL Creatinine 2.60 H (0.66-1.25) mg/dL Calcium (8.4-10.2) mg/dL Magnesium 2.7 H (1.6-2.3) mg/dL Total Protein 5.4 L (6.3-8.2) g/dL Albumin 2.6 L (3.5-5.0) g/dL 04/15/21 Range/Units 08:00 RBC (4.30-5.90) m/uL Hgb (13.0-17.5) gm/dL Hct (39.0-53.0) % MCV (80.0-100.0) fL MCHC (31.0-37.0) g/dL Lymphocytes # (1.0-4.8) k/uL Sodium 136 L (137-145) mmol/L Chloride 111 H (98-107) mmol/L Carbon Dioxide 19 L (22-30) mmol/L BUN 74 H (9-20) mg/dL Creatinine 2.19 H (0.66-1.25) mg/dL Calcium 8.3 L (8.4-10.2) mg/dL Magnesium 2.5 H (1.6-2.3) mg/dL Total Protein 5.0 L (6.3-8.2) g/dL Albumin 2.3 L (3.5-5.0) g/dL Microbiology - Last 24 Hours (Table) 04/13/21 01:01 Urine Culture - Preliminary Urine,Catheterized Yeast species Assessment and Plan Plan: Assessment: 1. Acute kidney injury secondary to ATN secondary to hemodynamic instability. Also component of obstructive uropathy. Creatinine 3.23 on admission - 2.19 today. 2. Chronic kidney disease stage IV secondary to nephrosclerosis with baseline creatinines range of 2.5-3. 3. Bradycardia maintained on IV dopamine. Cardiology following. Pacemaker be considered. 4. Anemia of chronic kidney disease. On Aranesp. Iron deficiency noted. 5. UTI with urine culture positive for yeast. 6. History of prostate cancer status post radiation. 7. 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 Urology following. No plans for intervention at this time. 8. Hyponatremia secondary to acute kidney injury. Improved. 9. Metabolic acidosis secondary to acute kidney injury and IV fluids. On oral bicarb. Plan: Maintain normal saline at 50 mL an hour. Avoid nephrotoxins. Maintain IV iron. EF preserved. Possible pacemaker this admission.
[2021-04-15] MEDS: SODIUM FERRIC GLUCONAT-SUCROSE 125 MG in SODIUM CHLORIDE 0.9% 100 ML IVPB SCH (09:58)
[2021-04-15] MEDS: MULTIVITAMINS, THERA 1 EACH TAB PO SCH (10:01)
[2021-04-15] MEDS: SODIUM BICARBONATE TAB 650 MG TAB PO SCH ×2 (10:01→20:38)
[2021-04-15] MEDS: TAMSULOSIN 0.4 MG CAP.ER.24H PO SCH (10:01)
[2021-04-15] MEDS: DOPamine DRIP 800 MG in DEXTROSE/WATER 1 250ML.BAG IV SCH (10:01)
--- NOTE | 2021-04-15 12:02 | P.PN ---
Subjective Progress Note Date: 04/15/21 This is a pleasant 89-year-old male past medical history significant for paroxysmal atrial fibrillation not on anticoagulation due to GI bleed, hyperlipidemia, hypertension, CVA. He follows with Dr. Dunlap. We have been asked to see in consultation for bradycardia. Patient lives at [facility], and was found to be bradycardia and confused. Patient has a positive UTI and acute renal failure. His EKG showed bradycardia with a heart rate of 32. His flecainide and metoprolol continue to be on hold. Patient is examined today resting in bed he is alert but pleasantly confused. He denies chest pain, dyspnea, dizziness, or syncope. Patient continues on a dopamine drip. Will discontinue dopamine drip and start amiodarone 50 mg daily. He was also started on leveothyroxine for an elevated TSH. Will obtain an EKG of the patient's current rhythm. She still remains bradycardia with a heart rate in the 50s. Echocardiogram revealed a normal LV function with an ejection fraction of 50-55% moderate aortic sclerosis, mild aortic stenosis, and mild MR, mild TR. Nurse spoke to the patient's son. At this time they do not wish to proceed with a pacemaker and would prefer him to be medically managed. Objective - Vital Signs Vital signs: Vital Signs Temp 98 F 04/15/21 03:55 Pulse 52 L 04/15/21 03:55 Resp 18 04/15/21 03:55 BP 153/67 04/15/21 03:55 Pulse Ox 97 04/15/21 03:55 Intake & Output 04/14/21 04/15/21 04/15/21 18:59 06:59 18:59 Intake Total 600 240 120 Output Total 950 650 400 Balance -350 -410 -280 Weight 58.967 kg Intake: Oral 600 240 120 Output: Urine 950 650 400 Other: Voiding Method Indwelling Catheter Indwelling Catheter # Bowel Movements 1 - Exam PHYSICAL EXAM: VITAL SIGNS: Reviewed. GENERAL: Well-developed in no acute distress. HEENT: Head is normocephalic. Pupils are equal, round. Sclerae anicteric. Mucous membranes of the mouth are moist. NECK: Supple. No JVD or thyromegaly RESPIRATORY: Respirations even and unlabored. Lungs diminished to auscultation bilaterally. CARDIO: Regular rate and rhythm. S1 and S2 heard. No gallops. Ejection systolic murmur EXTREMITIES: Normal range of motion. No clubbing or cyanosis. Peripheral pulses intact. Negative for bilateral lower extremity edema NEURO: Orientated to person, pleasantly confused, mood is appropriate - Labs CBC & Chem 7: 04/15/21 08:00 04/15/21 08:00 Labs: Abnormal Lab Results - Last 24 Hours (Table) 04/15/21 04/15/21 Range/Units 08:00 08:00 RBC 2.45 L (4.30-5.90) m/uL Hgb 8.0 L (13.0-17.5) gm/dL Hct 26.1 L (39.0-53.0) % MCV 106.4 H (80.0-100.0) fL MCHC 30.5 L (31.0-37.0) g/dL Lymphocytes # 0.5 L (1.0-4.8) k/uL Sodium 136 L (137-145) mmol/L Chloride 111 H (98-107) mmol/L Carbon Dioxide 19 L (22-30) mmol/L BUN 74 H (9-20) mg/dL Creatinine 2.19 H (0.66-1.25) mg/dL Calcium 8.3 L (8.4-10.2) mg/dL Magnesium 2.5 H (1.6-2.3) mg/dL Total Protein 5.0 L (6.3-8.2) g/dL Albumin 2.3 L (3.5-5.0) g/dL Microbiology - Last 24 Hours (Table) 04/13/21 01:01 Urine Culture - Final Urine,Catheterized Jocelyn species, not albicans Assessment and Plan Assessment: Asymptomatic bradycardia Proximal atrial fibrillation, none on anticoagulation due to history of GI bleed Altered mental status likely related to urinary tract infection Urinary tract infection Acute on chronic renal failure Plan: Discontinue dopamine drip Start amiodarone 50 mg daily Continue with levothyroxine Continue to hold Lopressor Continue to hold flecainide Continue with telemetry monitoring Further recommendations based on clinical course The above impression and plan of care have been discussed and directed by the signing physician. Linh Crowe, nurse practitioner, acting as scribe for signing physician.
[2021-04-15] MEDS ORDERED: FLUCONAZOLE 100 MG TAB PO ONE (13:50)
--- NOTE | 2021-04-15 13:50 | P.PN ---
Subjective Progress Note Date: 04/15/21 HISTORY OF PRESENT ILLNESS This is an 89-year-old male patient of Dr. Bess and Dr. Dunlap residing at [facility] known to have history of prostate cancer along with obstructive uropathy and recurrent kidney stone with recurrent UTI, chronic hydronephrosis, chronic kidney disease stage IV, paroxysmal atrial fibrillation, history of GI bleed, hypertension, atherosclerotic heart disease, moderate protein calorie malnutrition. Patient was transferred from [facility] to [facility] emergency center on 04/12 due to bradycardia and increased confusion and treated for acute urinary tract infection and acute kidney injury. Patient was inadvertently admitted under Dr. Ramana Tejada by mistake. When family were in contact with [facility] they stated that Dr. Bess is his physician and they wanted the patient's care switched to Dr. Bess. Patient has been seen and followed by cardiology and was on dopamine drip which will be discontinued today, start patient on amiodarone 50 mg daily. Patient is also been started on levothyroxine well admitted for an elevated TSH. Heart rate is now running in the 50s. Echocardiogram revealed EF of 50-55%, moderate aortic sclerosis and mild aortic stenosis, mild MR and mild TR. Family requested that no aggressive treatment be provided and did not want to pursue pacemaker and requested medical management only. Patient has also been seen and followed by nephrology for acute kidney injury secondary to ATN secondary to hemodynamic instability with component of obstructive uropathy. Creatinine on admission was 3.23 and now down to 2.19. Patient is maintained on normal saline at 50 mL per hour. He has also undergoi ng iron infusions. Dr. Moreira has evaluated the patient for chronic hydronephrosis with no plan for intervention. Patient has Kaiser and a trial of voiding prior to discharge Jocelyn on. Once Kaiser is removed, no need for Kaiser replacement if PVR is less than 300. REVIEW OF SYSTEMS Constitutional: No fever, no chills, no night sweats. Chronic weight loss with decreased appetitie, reported weakness and fatigue and daytime sleepiness with debility not been able to ambulate and walk. EENT: No headache. No blurred vision or double vision, no loss of vision. Chronic loss of Hearing. No nasal drainage or congestion. No epistaxis. No sore throat. Lungs: No shortness of breath with no cough no wheezes. Cardiovascular: Positive PND orthopnea palpitations and along with lightheadedness. No syncopal episodes. Abdominal: Abdominal discomfort with nausea no vomiting has a significant change in bowel habits along with worsening appetite Genitourinary: Hematuria with frequency urgency burning discomfort with history of prostate cancer. Musculoskeletal: No myalgias. Noted muscle weakness, noted gait dysfunction, no frequent falls. Positive back and neck pain. Integumentary: No wounds, no lesions. No rash or pruritus. No unusual bruising. No change in hair or nails. Neurologic: No aphasia. No facial droop. Noted change in mentation with chronic dementia. No head injury. No headache. No paralysis. No paresthesia. Psychiatric: No depression. No anxiety. No mood swings. Endocrine: No abnormal blood sugars. No weight change. PHYSICAL EXAMINATION Gen: This is elderly frail appearing 89-year-old male. Patient is resting in bed and appears to be comfortable and in no acute distress. HEENT: Head is atraumatic, normocephalic. Pupils equal, round. Sclerae is anicteric. NECK: Supple. No JVD. No lymphadenopathy. No thyromegaly. LUNGS: Decreased breath sound bilaterally, no wheezes, no accessory muscle usage. HEART: Irregular rate and rhythm. Positive systolic murmur with positive S3. ABDOMEN: Soft. Bowel sounds are present. Abdominal tenderness, no rebound or rigidity. Kaiser catheter draining terry urine. EXTREMITIES: No pedal edema. No calf tenderness. NEUROLOGICAL: Patient is awake, alert and oriented to person confusion. Positive generalized weakness or fatigue. ASSESSMENT AND PLAN 1. Acute bradycardia. Cardiology consult appreciated. Dopamine drip to be discontinued today. Hold Lopressor and flecainide. Patient to start on amiodarone 50 mg daily, continue telemetry monitoring. 2. Acute kidney injury secondary to ATN secondary to hemodynamic instability with component of obstructive uropathy. Nephrology consult appreciated. Continue IV fluids or 0.9 normal saline at 50 mL per hour, avoid nephrotoxic agents. 3. Chronic kidney disease stage IV secondary to nephrosclerosis with baseline creatinine of 2. 53. 4. Acute urinary tract infection with urine culture positive for yeast. Patient has been on ceftriaxone 1 g daily. 5. Chronic bilateral hydronephrosis with history of incomplete bladder emptying. Kaiser catheter in place, plan for trial of voiding before discharge and only replace Kaiser if PVR greater than 300. 6. Hyperthyroidism. Patient started on levothyroxine 75 g daily. 7. Anemia of chronic kidney disease. Continue Aranesp 60 g weekly, Ferrlecit infusion daily 4. 8. Paroxysmal atrial fibrillation. Hold Lopressor and flecainide. No anticoagulation due to history of GI bleed. 9. 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 Continue Flomax 0.4 mg daily.. 10. History of hypertension. 11. Atherosclerotic heart disease: No chest pain or angina still seen cardiology regularly. 12. DVT prophylaxis: Continue early mobilization and knee-high BEVERLY hose. 13. GI prophylaxis. Pantoprazole. DISCHARGE PLAN Return to [facility] under the care of Dr. Bess on Sunday Impression and plan of care have been directed as dictated by the signing physician. Tena Silva nurse practitioner acting as scribe for signing physician. Objective - Vital Signs Vital signs: Vital Signs Temp 98 F 04/15/21 03:55 Pulse 52 L 04/15/21 03:55 Resp 18 04/15/21 03:55 BP 153/67 04/15/21 03:55 Pulse Ox 97 04/15/21 03:55 Intake & Output 04/14/21 04/15/21 04/15/21 18:59 06:59 18:59 Intake Total 600 240 120 Output Total 950 650 400 Balance -350 -410 -280 Weight 58.967 kg Intake: Oral 600 240 120 Output: Urine 950 650 400 Other: Voiding Method Indwelling Catheter Indwelling Catheter # Bowel Movements 1 - Labs CBC & Chem 7: 04/15/21 08:00 04/15/21 08:00 Labs: Abnormal Lab Results - Last 24 Hours (Table) 04/15/21 04/15/21 Range/Units 08:00 08:00 RBC 2.45 L (4.30-5.90) m/uL Hgb 8.0 L (13.0-17.5) gm/dL Hct 26.1 L (39.0-53.0) % MCV 106.4 H (80.0-100.0) fL MCHC 30.5 L (31.0-37.0) g/dL Lymphocytes # 0.5 L (1.0-4.8) k/uL Sodium 136 L (137-145) mmol/L Chloride 111 H (98-107) mmol/L Carbon Dioxide 19 L (22-30) mmol/L BUN 74 H (9-20) mg/dL Creatinine 2.19 H (0.66-1.25) mg/dL Calcium 8.3 L (8.4-10.2) mg/dL Magnesium 2.5 H (1.6-2.3) mg/dL Total Protein 5.0 L (6.3-8.2) g/dL Albumin 2.3 L (3.5-5.0) g/dL Microbiology - Last 24 Hours (Table) 04/13/21 01:01 Urine Culture - Final Urine,Catheterized Jocelyn species, not albicans
--- NOTE | 2021-04-15 14:43 | CDI ---
Documentation Clarification Form Date: 04/15/2021 02:22:31 PM From: Cristine Blandon RN CCDS Admit Date: 04/13/2021 01:19:00 AM Patient Name: Pb Franco Visit Number: [id number] Discharge Date: ATTENTION: The Clinical Documentation Specialists (CDI) and [facility] Coding Staff appreciate your assistance in clarifying documentation. Please respond to the clarification below the line at the bottom and electronically sign. The CDI & [facility] Coding staff will review the response and follow-up if needed. Please note: Queries are made part of the Legal Health Record. If you have any questions, please contact the author of this message via ITS. Dr. Ramana Bess Your patient has the documented symptom of Altered Mental Status 04/03, H&P. Additional clarification regarding the etiology/cause of this symptom is requested. History/Risk Factors: 89-year-old male presents to the ED via EMS from [facility] on 04/12 for Bradycardia and Increased confusion and treated for UTI and Acute kidney injury. Medical History: CKD IV, Chronic bilateral hydronephrosis with history of incomplete bladder emptying. Medicine progress note, 04/15. Clinical Indicators: Labs: UA 04/13: protein 2+ ; Blood Large; Leukocyte Esterase Large: WBC >182; WBC Clumps Many; Urine Bacteria Moderate. Urine culture 04/15 Jocelyn species, not albicans Cardiology progress note 04/15: Altered mental status likely related to urinary tract infection. Treatment: 04/13 Ceftriaxone 2gm IVPB x 1; 04/13 d/c 04/15 Ceftriaxone 1gm IVPB Q12Hr; 04/15 Diflucan 200mg PO x 1; 04/16 to Diflucan 100mg PO Daily. 04/13 0.9NS 1L bolus x 1. Please clarify the etiology of the symptom of Altered Mental Status: [ xx ] Metabolic Encephalopathy due to (please specify) [ ] Other condition (please specify) [ ] Unable to determine (Template Last Revised: April 2020) MTDD
[2021-04-15] MEDS: AMIODARONE 50 MG TAB PO SCH (17:15)
[2021-04-15] MEDS: SODIUM CHLORIDE 0.9% 1,000 ML IV SCH (20:33)
[2021-04-15] MEDS: HEPARIN SODIUM,PORCINE/PF 5,000 UNIT/0.5 ML SYRINGE SQ SCH (20:38)
[2021-04-16] MEDS: LEVOTHYROXINE 75 MCG TAB PO SCH (06:45)
[2021-04-16] MEDS: PANTOPRAZOLE 40 MG TABLET PO SCH (06:45)
[2021-04-16 09:10] LABS: Magnesium 2.3 mg/dL (1.6-2.3); Potassium 3.8 mmol/L (3.5-5.1)
[2021-04-16] MEDS: SODIUM BICARBONATE TAB 650 MG TAB PO SCH ×2 (09:22→19:52)
[2021-04-16] MEDS: AMIODARONE 50 MG TAB PO SCH (09:22)
[2021-04-16] MEDS: MULTIVITAMINS, THERA 1 EACH TAB PO SCH (09:22)
[2021-04-16] MEDS: HEPARIN SODIUM,PORCINE/PF 5,000 UNIT/0.5 ML SYRINGE SQ SCH ×2 (09:23→19:52)
[2021-04-16] MEDS: FLUCONAZOLE 100 MG TAB PO SCH (09:23)
[2021-04-16] MEDS: SODIUM FERRIC GLUCONAT-SUCROSE 125 MG in SODIUM CHLORIDE 0.9% 100 ML IVPB SCH (09:23)
[2021-04-16] MEDS: TAMSULOSIN 0.4 MG CAP.ER.24H PO SCH (09:23)
[2021-04-16] MEDS: DARBEPOETIN ALFA 60 MCG/0.3 ML SYRINGE SQ SCH (09:24)
--- NOTE | 2021-04-16 14:22 | P.PN ---
Subjective Progress Note Date: 04/16/21 This is a pleasant 89-year-old male past medical history significant for paroxysmal atrial fibrillation not on anticoagulation due to GI bleed, hyperlipidemia, hypertension, CVA. He follows with Dr. Dunlap. We have been asked to see in consultation for bradycardia. Patient lives at [facility], and was found to be bradycardia and confused. Patient has a positive UTI and acute renal failure. His EKG showed bradycardia with a heart rate of 32. His flecainide and metoprolol continue to be on hold. Patient remains alert but pleasantly confused, when patient has moments of clarity he states are not here for a picnic with skin demo we need to get done. He is seen resting in bed with no signs of acute distress. He denies chest pain, dyspnea, dizziness, or syncope. Patient's dopamine drip was discontinued yesterday. He started having occasional beats of V. tach, with a heart rate in the 40s or 50s. Patient was started on by mouth amiodarone yesterday. Will increase amiodarone to 100 mg twice a day. She continues on leveothyroxine for an elevated TSH. Family at this time does not want to proceed with a pacemaker and would prefer patient to be medically managed due to his age and current mental state. Objective - Vital Signs Vital signs: Vital Signs Temp 98.2 F 04/16/21 12:00 Pulse 53 L 04/16/21 12:00 Resp 18 04/16/21 12:00 BP 135/63 04/16/21 12:00 Pulse Ox 95 04/16/21 12:00 Intake & Output 04/15/21 04/16/21 04/16/21 18:59 06:59 18:59 Intake Total 120 600 Output Total 400 1200 350 Balance -280 -1200 250 Weight 58.967 kg Intake: Oral 120 600 Output: Urine 400 1200 350 Other: Voiding Method Indwelling Catheter Indwelling Catheter Indwelling Catheter # Bowel Movements 1 2 - Exam PHYSICAL EXAM: VITAL SIGNS: Reviewed. GENERAL: Well-developed in no acute distress. HEENT: Head is normocephalic. Pupils are equal, round. Sclerae anicteric. Mucous membranes of the mouth are moist. NECK: Supple. No JVD or thyromegaly RESPIRATORY: Respirations even and unlabored. Lungs diminished to auscultation bilaterally. CARDIO: Regular rate and rhythm. S1 and S2 heard. No gallops. Ejection systolic murmur EXTREMITIES: Normal range of motion. No clubbing or cyanosis. Peripheral pulses intact. Negative for bilateral lower extremity edema NEURO: Orientated to person, pleasantly confused, mood is appropriate - Labs CBC & Chem 7: 04/15/21 08:00 04/16/21 08:04 Labs: Microbiology - Last 24 Hours (Table) 04/13/21 01:01 Urine Culture - Final Urine,Catheterized Jocelyn species, not albicans Assessment and Plan Assessment: Asymptomatic bradycardia Unsustained ventricular tachycardia Proximal atrial fibrillation, none on anticoagulation due to history of GI bleed Altered mental status likely related to urinary tract infection Urinary tract infection Acute on chronic renal failure Plan: Start amiodarone 100 mg twice a day Continue with levothyroxine Continue to hold Lopressor Continue to hold flecainide Continue with telemetry monitoring Further recommendations based on clinical course The above impression and plan of care have been discussed and directed by the signing physician. Linh Crowe, nurse practitioner, acting as scribe for sign ing physician.
--- NOTE | 2021-04-16 15:17 | P.PN ---
Subjective Progress Note Date: 04/16/21 Follow-up for acute kidney injury. Objective - Vital Signs Vital signs: Vital Signs Temp 98.2 F 04/16/21 12:00 Pulse 53 L 04/16/21 12:00 Resp 18 04/16/21 12:00 BP 135/63 04/16/21 12:00 Pulse Ox 95 04/16/21 12:00 Intake & Output 04/15/21 04/16/21 04/16/21 18:59 06:59 18:59 Intake Total 120 600 Output Total 400 1200 350 Balance -280 -1200 250 Weight 58.967 kg Intake: Oral 120 600 Output: Urine 400 1200 350 Other: Voiding Method Indwelling Catheter Indwelling Catheter Indwelling Catheter # Bowel Movements 1 2 - Exam No acute distress S1-S2 heard Diminished breath sounds No edema - Labs CBC & Chem 7: 04/15/21 08:00 04/16/21 08:04 Labs: Microbiology - Last 24 Hours (Table) 04/13/21 01:01 Urine Culture - Final Urine,Catheterized Jocelyn species, not albicans Assessment and Plan Assessment: #1 acute kidney injury secondary to hemodynamic ATN and also component of obstructive uropathy. #2 CK D4 secondary to nephrosclerosis with a baseline creatinine of 2.5 MG per DL. #3 bradycardia, cardiology following #4 anemia with chronic kidney disease #5 hypertension with chronic kidney disease #6 metabolic acidosis suspect secondary to IV fluids and component of CKD Plan: #1 continue with normal saline at 50 ML's an hour. Consider changing to an LR at 50 ML's an hour by tomorrow #2 renal function stable, better than baseline. #3 avoid nephrotoxic agents and hypotensive episodes
[2021-04-16] MEDS: SODIUM CHLORIDE 0.9% 1,000 ML IV SCH (15:35)
--- NOTE | 2021-04-16 17:08 | P.PN ---
Subjective Progress Note Date: 04/16/21 HISTORY OF PRESENT ILLNESS This is an 89-year-old male patient of Dr. Bess and Dr. Dunlap residing at [facility] known to have history of prostate cancer along with obstructive uropathy and recurrent kidney stone with recurrent UTI, chronic hydronephrosis, chronic kidney disease stage IV, paroxysmal atrial fibrillation, history of GI bleed, hypertension, atherosclerotic heart disease, moderate protein calorie malnutrition. Patient was transferred from [facility] to [facility] emergency center on 04/12 due to bradycardia and increased confusion and treated for acute urinary tract infection and acute kidney injury. Patient was inadvertently admitted under Dr. Ramana Tejada by mistake. When family were in contact with [facility] they stated that Dr. Bess is his physician and they wanted the patient's care switched to Dr. Bess. Patient has been seen and followed by cardiology and was on dopamine drip which will be discontinued today, start patient on amiodarone 50 mg daily. Patient is also been started on levothyroxine well admitted for an elevated TSH. Heart rate is now running in the 50s. Echocardiogram revealed EF of 50-55%, moderate aortic sclerosis and mild aortic stenosis, mild MR and mild TR. Family requested that no aggressive treatment be provided and did not want to pursue pacemaker and requested medical management only. Patient has also been seen and followed by nephrology for acute kidney injury secondary to ATN secondary to hemodynamic instability with component of obstructive uropathy. Creatinine on admission was 3.23 and now down to 2.19. Patient is maintained on normal saline at 50 mL per hour. He has also undergoi ng iron infusions. Dr. Moreira has evaluated the patient for chronic hydronephrosis with no plan for intervention. Patient has Kaiser and a trial of voiding prior to discharge Jocelyn on. Once Kaiser is removed, no need for Kaiser replacement if PVR is less than 300. 04/16 patient examined bedside. He is confused and hard of hearing. Patient continues to have episode of V. tach overnight with heartrate running between 46-51. Cardiology increased to anemia drawn 100 mg twice a day. REVIEW OF SYSTEMS Constitutional: No fever, no chills, no night sweats. Chronic weight loss with decreased appetitie, reported weakness and fatigue and daytime sleepiness with debility not been able to ambulate and walk. EENT: No headache. No blurred vision or double vision, no loss of vision. Chronic loss of Hearing. No nasal drainage or congestion. No epistaxis. No sore throat. Lungs: No shortness of breath with no cough no wheezes. Cardiovascular: Positive PND orthopnea palpitations and along with lightheadedness. No syncopal episodes. Abdominal: Abdominal discomfort with nausea no vomiting has a significant change in bowel habits along with worsening appetite Genitourinary: Hematuria with frequency urgency burning discomfort with history of prostate cancer. Musculoskeletal: No myalgias. Noted muscle weakness, noted gait dysfunction, no frequent falls. Positive back and neck pain. Integumentary: No wounds, no lesions. No rash or pruritus. No unusual bruising . No change in hair or nails. Neurologic: No aphasia. No facial droop. Noted change in mentation with chronic dementia. No head injury. No headache. No paralysis. No paresthesia. Psychiatric: No depression. No anxiety. No mood swings. Endocrine: No abnormal blood sugars. No weight change. PHYSICAL EXAMINATION Gen: This is elderly frail appearing 89-year-old male. Patient is resting in bed and appears to be comfortable and in no acute distress. HEENT: Head is atraumatic, normocephalic. Pupils equal, round. Sclerae is anicteric. NECK: Supple. No JVD. No lymphadenopathy. No thyromegaly. LUNGS: Decreased breath sound bilaterally, no wheezes, no accessory muscle usage. HEART: Irregular rate and rhythm. Positive systolic murmur with positive S3. ABDOMEN: Soft. Bowel sounds are present. Abdominal tenderness, no rebound or rigidity. Kaiser catheter draining terry urine. EXTREMITIES: No pedal edema. No calf tenderness. NEUROLOGICAL: Patient is awake, alert and oriented to person confusion. Positive generalized weakness or fatigue. ASSESSMENT AND PLAN 1. Acute bradycardia with episodes of V. tach. Cardiology consult appreciated. Dopamine drip discontinued Hold Lopressor and flecainide. amiodarone increased to 100 twice daily continue telemetry monitoring. 2. Acute kidney injury secondary to ATN secondary to hemodynamic instability with component of obstructive uropathy. Nephrology consult appreciated. Continue IV fluids or 0.9 normal saline at 50 mL per hour, avoid nephrotoxic agents. 3. Chronic kidney disease stage IV secondary to nephrosclerosis with baseline creatinine of 2. 53. 4. Acute urinary tract infection with urine culture positive for yeast. Patient has been on ceftriaxone 1 g daily. Rocephin discontinued patient on Diflucan 100 mg daily 5. Chronic bilateral hydronephrosis with history of incomplete bladder emptying. Kaiser catheter in place, plan for trial of voiding before discharge and only replace Kaiser if PVR greater than 300. 6. Hypothyroidism. Patienton levothyroxine 75 g daily. 7. Anemia of chronic kidney disease. Continue Aranesp 60 g weekly, Ferrlecit infusion daily 4. 8. Paroxysmal atrial fibrillation. Hold Lopressor and flecainide. No ant icoagulation due to history of GI bleed. 9. 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 Continue Flomax 0.4 mg daily.. 10. History of hypertension. 11. Atherosclerotic heart disease: No chest pain or angina still seen cardiology regularly. 12. DVT prophylaxis: Continue early mobilization and knee-high BEVERLY hose. 13. GI prophylaxis. Pantoprazole. DISCHARGE PLAN Return to [facility] under the care of Dr. Bess on Sunday Objective - Vital Signs Vital signs: Vital Signs Temp 98.8 F 04/16/21 16:00 Pulse 51 L 04/16/21 16:00 Resp 18 04/16/21 16:00 BP 149/57 04/16/21 16:00 Pulse Ox 95 04/16/21 16:00 Intake & Output 04/15/21 04/16/21 04/16/21 18:59 06:59 18:59 Intake Total 120 600 Output Total 400 1200 350 Balance -280 -1200 250 Weight 58.967 kg Intake: Oral 120 600 Output: Urine 400 1200 350 Other: Voiding Method Indwelling Catheter Indwelling Catheter Indwelling Catheter # Bowel Movements 1 2 - Labs CBC & Chem 7: 04/15/21 08:00 04/16/21 08:04
[2021-04-16] MEDS: AMIODARONE 100 MG TAB PO SCH (19:51)
[2021-04-17 06:35] LABS: Magnesium 2.1 mg/dL (1.6-2.3); Potassium 3.6 mmol/L (3.5-5.1)
[2021-04-17] MEDS: LEVOTHYROXINE 75 MCG TAB PO SCH (07:05)
[2021-04-17] MEDS: PANTOPRAZOLE 40 MG TABLET PO SCH (07:06)
[2021-04-17] MEDS: HEPARIN SODIUM,PORCINE/PF 5,000 UNIT/0.5 ML SYRINGE SQ SCH ×2 (09:10→19:54)
[2021-04-17] MEDS: SODIUM BICARBONATE TAB 650 MG TAB PO SCH ×2 (09:10→19:54)
[2021-04-17] MEDS: AMIODARONE 100 MG TAB PO SCH ×2 (09:10→19:54)
[2021-04-17] MEDS: SODIUM FERRIC GLUCONAT-SUCROSE 125 MG in SODIUM CHLORIDE 0.9% 100 ML IVPB SCH (09:10)
[2021-04-17] MEDS: MULTIVITAMINS, THERA 1 EACH TAB PO SCH (09:11)
[2021-04-17] MEDS: TAMSULOSIN 0.4 MG CAP.ER.24H PO SCH (09:11)
[2021-04-17] MEDS: FLUCONAZOLE 100 MG TAB PO SCH (09:11)
--- NOTE | 2021-04-17 13:06 | P.PN ---
Subjective Patient is resting comfortably this morning. Remains in sinus rhythm with sinus tachycardia. He has had a fairly difficult last night has had runs of bradycardia and also had frequent PVCs and nonsustained VT. I'm told by the nurse that both the patient and family have not changed their mind and wish to have a permanent pacemaker done. This fills normally help us deal with the bradycardia arrhythmia and he'll give us the opportunity to put him on some beta blockers to deal with the ventricular ectopy. Patient had an echocardiogram on this admission that revealed normal LV systolic function with mild aortic stenosis in EKG early this morning shows sinus tachycardia with first-degree AV block and right bundle branch block with evidence of prior inferior wall myocardial infarction I will keep him nothing by mouth past midnight for possible permanent pacemaker tomorrow Patient has a UTI and is currently on fluconazole for the same On exam today he is comfortable at rest vital signs are stable chest exam reveals diminished air entry with occasional rhonchi heart exam reveals first and second heart sounds and ejection systolic murmur in the aortic area abdomen is soft exam extremities reveals mild edema Labs there are no labs on him from today Assessment Symptomatic bradycardia Chronic renal insufficiency Urinary tract infection Nonsustained VT Plan patient wishes to proceed with permanent pacemaker we will get this done to jaelyn Objective - Vital Signs Vital signs: Vital Signs Temp 99.0 F 04/17/21 12:00 Pulse 91 04/17/21 12:00 Resp 16 04/17/21 12:00 BP 117/70 04/17/21 12:00 Pulse Ox 95 04/17/21 12:00 Intake & Output 04/16/21 04/17/21 04/17/21 18:59 06:59 18:59 Intake Total 600 Output Total 750 300 Balance -150 -300 Intake: Oral 600 Output: Urine 750 300 Other: Voiding Method Indwelling Catheter Indwelling Catheter Indwelling Catheter # Bowel Movements 2 1 - Labs CBC & Chem 7: 04/15/21 08:00 04/17/21 06:02
--- NOTE | 2021-04-17 13:39 | P.PN ---
Subjective Progress Note Date: 04/17/21 Follow-up for acute kidney injury. Objective - Vital Signs Vital signs: Vital Signs Temp 99.0 F 04/17/21 12:00 Pulse 91 04/17/21 12:00 Resp 16 04/17/21 12:00 BP 117/70 04/17/21 12:00 Pulse Ox 95 04/17/21 12:00 Intake & Output 04/16/21 04/17/21 04/17/21 18:59 06:59 18:59 Intake Total 600 Output Total 750 300 Balance -150 -300 Intake: Oral 600 Output: Urine 750 300 Other: Voiding Method Indwelling Catheter Indwelling Catheter Indwelling Catheter # Bowel Movements 2 1 - Exam No acute distress S1-S2 heard Diminished breath sounds No edema - Labs CBC & Chem 7: 04/15/21 08:00 04/17/21 06:02 Assessment and Plan Assessment: #1 acute kidney injury secondary to hemodynamic ATN and also component of obstructive uropathy. 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 #3 bradycardia, cardiology following #4 anemia with chronic kidney disease #5 hypertension with chronic kidney disease #6 metabolic acidosis suspect secondary to IV fluids and component of CKD Plan: #1 continue with normal saline at 50 ML's an hour. #2 renal function stable, better than baseline. No new labs today. #3 avoid nephrotoxic agents and hypotensive episodes
[2021-04-17] MEDS: SODIUM CHLORIDE 0.9% 1,000 ML IV SCH (14:21)
--- NOTE | 2021-04-17 15:53 | P.PN ---
Subjective Progress Note Date: 04/17/21 HISTORY OF PRESENT ILLNESS This is an 89-year-old male patient of Dr. Bess and Dr. Dunlap residing at [facility] known to have history of prostate cancer along with obstructive uropathy and recurrent kidney stone with recurrent UTI, chronic hydronephrosis, chronic kidney disease stage IV, paroxysmal atrial fibrillation, history of GI bleed, hypertension, atherosclerotic heart disease, moderate protein calorie malnutrition. Patient was transferred from [facility] to [facility] emergency center on 04/12 due to bradycardia and increased confusion and treated for acute urinary tract infection and acute kidney injury. Patient was inadvertently admitted under Dr. Ramana Tejada by mistake. When family were in contact with [facility] they stated that Dr. Bess is his physician and they wanted the patient's care switched to Dr. Bess. Patient has been seen and followed by cardiology and was on dopamine drip which will be discontinued today, start patient on amiodarone 50 mg daily. Patient is also been started on levothyroxine well admitted for an elevated TSH. Heart rate is now running in the 50s. Echocardiogram revealed EF of 50-55%, moderate aortic sclerosis and mild aortic stenosis, mild MR and mild TR. Family requested that no aggressive treatment be provided and did not want to pursue pacemaker and requested medical management only. Patient has also been seen and followed by nephrology for acute kidney injury secondary to ATN secondary to hemodynamic instability with component of obstructive uropathy. Creatinine on admission was 3.23 and now down to 2.19. Patient is maintained on normal saline at 50 mL per hour. He has also undergoi ng iron infusions. Dr. Moreira has evaluated the patient for chronic hydronephrosis with no plan for intervention. Patient has Kaiser and a trial of voiding prior to discharge Jocelyn on. Once Kaiser is removed, no need for Kaiser replacement if PVR is less than 300. 04/16 patient examined bedside. He is confused and hard of hearing. Patient continues to have episode of V. tach overnight with heartrate running between 46-51. Cardiology increased to anemia drawn 100 mg twice a day. patient examined bedside. Apparently patient's heart rate dropped to the 30s in the night and family was called. Patient family clarify patient's CODE STATUS to be full code. Patient was initiated on dopamine drip with plans for pacemaker tomorrow. Family updated REVIEW OF SYSTEMS Constitutional: No fever, no chills, no night sweats. Chronic weight loss with decreased appetitie, reported weakness and fatigue and daytime sleepiness with debility not been able to ambulate and walk. EENT: No headache. No blurred vision or double vision, no loss of vision. Chronic loss of Hearing. No nasal drainage or congestion. No epistaxis. No sore throat. Lungs: No shortness of breath with no cough no wheezes. Cardiovascular: Positive PND orthopnea palpitations and along with lightheadedness. No syncopal episodes. Abdominal: Abdominal discomfort with nausea no vomiting has a significant change in bowel habits along with worsening appetite Genitourinary: Hematuria with frequency urgency burning discomfort with history of prostate cancer. Musculoskeletal: No myalgias. Noted muscle weakness, noted gait dysfunction, no frequent falls. Positive back and neck pain. Integumentary: No wounds, no lesions. No rash or pruritus. No unusual bruising. No change in hair or nails. Neurologic: No aphasia. No facial droop. Noted change in mentation with chronic dementia. No head injury. No headache. No paralysis. No paresthesia. Psychiatric: No depression. No anxiety. No mood swings. Endocrine: No abnormal blood sugars. No weight change. PHYSICAL EXAMINATION Gen: This is elderly frail appearing 89-year-old male. Patient is resting in bed and appears to be comfortable and in no acute distress. HEENT: Head is atraumatic, normocephalic. Pupils equal, round. Sclerae is anicteric. NECK: Supple. No JVD. No lymphadenopathy. No thyromegaly. LUNGS: Decreased breath sound bilaterally, no wheezes, no accessory muscle usage. HEART: Irregular rate and rhythm. Positive systolic murmur with positive S3. ABDOMEN: Soft. Bowel sounds are present. Abdominal tenderness, no rebound or rigidity. Kaiser catheter draining terry urine. EXTREMITIES: No pedal edema. No calf tenderness. NEUROLOGICAL: Patient is awake, alert and oriented to person confusion. Positive generalized weakness or fatigue. ASSESSMENT AND PLAN 1. Acute bradycardia with episodes of V. tach. Cardiology consult appreciated. Dopamine drip discontinued Hold Lopressor and flecainide. amiodarone increased to 100 twice daily continue telemetry monitoring. 2. Acute kidney injury secondary to ATN secondary to hemodynamic instability with component of obstructive uropathy. Nephrology consult appreciated. Continue IV fluids or 0.9 normal saline at 50 mL per hour, avoid nephrotoxic agents. 3. Chronic kidney disease stage IV secondary to nephrosclerosis with baseline creatinine of 2. 53. 4. Acute urinary tract infection with urine culture positive for yeast. Patient has been on ceftriaxone 1 g daily. Rocephin discontinued patient on Diflucan 100 mg daily 5. Chronic bilateral hydronephrosis with history of incomplete bladder emptying. Kaiser catheter in place, plan for trial of voiding before discharge and only replace Kaiser if PVR greater than 300. 6. Hypothyroidism. Patienton levothyroxine 75 g daily. 7. Anemia of chronic kidney disease. Continue Aranesp 60 g weekly, Ferrlecit infusion daily 4. 8. Paroxysmal atrial fibrillation. Hold Lopressor and flecainide. No anticoagulation due to history of GI bleed. 9. 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 Continue Flomax 0.4 mg daily.. 10. History of hypertension. 11. Atherosclerotic heart disease: No chest pain or angina still seen cardiology regularly. 12. DVT prophylaxis: Continue early mobilization and knee-high BEVERLY hose. 13. GI prophylaxis. Pantoprazole. DISCHARGE PLAN Return to [facility] under the care of Dr. Bess on Sunday Objective - Vital Signs Vital signs: Vital Signs Temp 99.0 F 04/17/21 12:00 Pulse 91 04/17/21 14:00 Resp 16 04/17/21 14:00 BP 117/70 04/17/21 12:00 Pulse Ox 95 04/17/21 12:00 Intake & Output 04/16/21 04/17/21 04/17/21 18:59 06:59 18:59 Intake Total 600 Output Total 750 300 Balance -150 -300 Intake: Oral 600 Output: Urine 750 300 Other: Voiding Method Indwelling Catheter Indwelling Catheter Indwelling Catheter # Voids 1 # Bowel Movements 2 1 1 - Labs CBC & Chem 7: 04/15/21 08:00 04/17/21 06:02
[2021-04-17] MEDS: MORPHINE SULFATE 4 MG/ML SYRINGE IV PRN (19:54)
[2021-04-18] MEDS: LEVOTHYROXINE 75 MCG TAB PO SCH (06:33)
[2021-04-18] MEDS: PANTOPRAZOLE 40 MG TABLET PO SCH (06:33)
[2021-04-18] MEDS: SODIUM CHLORIDE 0.9% 1,000 ML IV SCH (06:34)
[2021-04-18 08:03] LABS: Basophils % (A) 0 %; Eosinophils # (A) 0.3 k/uL (0-0.7); Eosinophils % (A) 4 %; HCT 27.2 % (39.0-53.0); HGB 8.1 gm/dL (13.0-17.5); Hypochromasia Marked; Lymphocytes # (A) 0.5 k/uL (1.0-4.8); Lymphocytes % (A) 6 %; MCH 32.6 pg (25.0-35.0); MCHC 29.9 g/dL (31.0-37.0); MCV 109.2 fL (80.0-100.0); Macrocytosis Marked; Mean Platelet Volume 7.2; Monocytes # (A) 0.4 k/uL (0-1.0); Monocytes % (A) 5 %; Neutrophils # (A) 6.8 k/uL (1.3-7.7); Neutrophils % (A) 83 %; Platelet Count 289 k/uL (150-450); RBC 2.49 m/uL (4.30-5.90); RDW 15.1 % (11.5-15.5); WBC 8.1 k/uL (3.8-10.6)
[2021-04-18 08:29] LABS: Albumin 2.3 g/dL (3.5-5.0); Calcium 8.7 mg/dL (8.4-10.2); Potassium 3.8 mmol/L (3.5-5.1); Total Bilirubin 0.5 mg/dL (0.2-1.3); Total Protein 5.2 g/dL (6.3-8.2)
[2021-04-18] MEDS: DOPamine DRIP 800 MG in DEXTROSE/WATER 1 250ML.BAG IV SCH ×2 (09:30→09:32)
[2021-04-18] MEDS: TAMSULOSIN 0.4 MG CAP.ER.24H PO SCH (09:31)
[2021-04-18] MEDS: AMIODARONE 100 MG TAB PO SCH ×2 (09:31→20:17)
[2021-04-18] MEDS: FLUCONAZOLE 100 MG TAB PO SCH (09:31)
[2021-04-18] MEDS: SODIUM BICARBONATE TAB 650 MG TAB PO SCH ×2 (09:31→20:17)
[2021-04-18] MEDS: MULTIVITAMINS, THERA 1 EACH TAB PO SCH (09:31)
[2021-04-18] MEDS: HEPARIN SODIUM,PORCINE/PF 5,000 UNIT/0.5 ML SYRINGE SQ SCH ×2 (09:36→20:17)
[2021-04-18] MEDS ORDERED: SODIUM CHLORIDE 0.9% 1,000 ML IV SCH ×2 (10:30)
--- NOTE | 2021-04-18 10:40 | P.PN ---
Subjective Principal diagnosis: Patient is seen for follow-up for acute kidney injury. Currently maintained on IVF at 50 mL an hour. Patient was bradycardic and therefore maintained on dopamine. Now discontinued. Creatinine down to 1.7 from 2.19 on 04/15/2021. Good urine output. 1100 mL for 24 hours. Objective - Vital Signs Vital signs: Vital Signs Temp 98 F 04/18/21 04:00 Pulse 87 04/18/21 04:00 Resp 17 04/18/21 04:00 BP 121/66 04/18/21 04:00 Pulse Ox 92 L 04/18/21 04:00 Intake & Output 04/17/21 04/18/21 04/18/21 18:59 06:59 18:59 Intake Total 200 Output Total 700 400 Balance -700 -200 Intake: Intake, IV Titration 200 Amount Sodium Chloride 0.9% 1, 200 000 ml @ 50 mls/hr IV . Q20H [facility] Rx#:[id number] Output: Urine 700 400 Other: Voiding Method Indwelling Catheter Indwelling Catheter # Voids 1 1 # Bowel Movements 1 1 - Exam Patient is awake comfortable he is not in any acute distress. He is confused. Examination of the heart S1 and S2. Examination lungs bilateral breath sounds are heard decreased breath sounds at the bases. Abdomen is soft nontender Examination lower extremity shows 1+ edema bilaterally with chronic skin changes. [employer] exam shows patient is moving all 4 extremities. He is confused. - Labs CBC & Chem 7: 04/18/21 07:11 04/18/21 07:11 Labs: Abnormal Lab Results - Last 24 Hours (Table) 04/18/21 04/18/21 Range/Units 07:11 07:11 RBC 2.49 L (4.30-5.90) m/uL Hgb 8.1 L (13.0-17.5) gm/dL Hct 27.2 L (39.0-53.0) % MCV 109.2 H (80.0-100.0) fL MCHC 29.9 L (31.0-37.0) g/dL Macrocytosis Marked A Chloride 116 H (98-107) mmol/L Carbon Dioxide 19 L (22-30) mmol/L BUN 44 H (9-20) mg/dL Creatinine 1.71 H (0.66-1.25) mg/dL Total Protein 5.2 L (6.3-8.2) g/dL Albumin 2.3 L (3.5-5.0) g/dL Assessment and Plan Assessment: #1 acute kidney injury secondary to hemodynamic ATN and also component of obstructive uropathy. 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 #3 bradycardia, cardiology following, off of dopamine. #4 anemia with chronic kidney disease #5 hypertension with chronic kidney disease #6 metabolic acidosis suspect secondary to IV fluids and component of CKD Plan: #1 continue with normal saline at 50 ML's an hour. #2 renal function stable, better than baseline. #3 avoid nephrotoxic agents and hypotensive episodes
--- NOTE | 2021-04-18 10:41 | P.DS ---
Providers Date of admission: 04/13/21 01:19 Expected date of discharge: 04/20/21 Attending physician: Ramana Bess Consults: 04/13/21 01:20 Consult Physician Routine Consulting Provider: Wilson Horton Consult Reason/Comments: viviane Do you want consulting provider notified?: Yes Consult Physician Routine Consulting Provider: Nida Villa Consult Reason/Comments: arf Do you want consulting provider notified?: Yes 04/13/21 15:18 Consult Physician Routine Consulting Provider: Gail Godinez Consult Reason/Comments: urosepsis Do you want consulting provider notified?: Yes 04/13/21 15:24 Consult Physician Routine Consulting Provider: Lavell Howard Consult Reason/Comments: hydronephrosis/stones Do you want consulting provider notified?: Yes Primary care physician: Ramana Bess [facility] Course: HISTORY OF PRESENT ILLNESS This is an 89-year-old male patient of Dr. Bess and Dr. Dunlap residing at [facility] known to have history of prostate cancer along with obstructive uropathy and recurrent kidney stone with recurrent UTI, chronic hydronephrosis, chronic kidney disease stage IV, paroxysmal atrial fibrillation, history of GI bleed, hypertension, atherosclerotic heart disease, moderate protein calorie malnutrition. Patient was transferred from [facility] to [facility] emergency center on 04/12 due to bradycardia and increased confusion and treated for acute urinary tract infection and acute kidney injury. Patient was inadvertently admitted under Dr. Ramana Tejada by mistake. When family were in contact with lynda they stated that Dr. Bess is his physician and they wanted the patient's care switched to Dr. Bess. Patient has been seen and followed by cardiology and was on dopamine drip which will be discontinued today, start patient on amiodarone 50 mg daily. Patient is also been started on levothyroxine well admitted for an elevated TSH. Heart rate is now running in the 50s. Echocardiogram revealed EF of 50-55%, moderate aortic sclerosis and mild aortic stenosis, mild MR and mild TR. Family requested that no aggressive treatment be provided and did not want to pursue pacemaker and requested medical management only. Patient has also been seen and followed by nephrology for acute kidney injury secondary to ATN secondary to hemodynamic instability with component of obstructive uropathy. Creatinine on admission was 3.23 and now down to 2.19. Patient is maintained on normal saline at 50 mL per hour. He has also undergoing iron infusions. Dr. Moreira has evaluated the patient for chronic hydronephrosis with no plan for intervention. Patient has Kaiser and a trial of voiding prior to discharge Jocelyn on. Once Kaiser is removed, no need for Kaiser replacement if PVR is less than 300. 04/16 patient examined bedside. He is confused and hard of hearing. Patient continues to have episode of V. tach overnight with heartrate running between 46-51. Cardiology increased to anemia drawn 100 mg twice a day. 04/17 patient examined bedside. Apparently patient's heart rate dropped to the 30s in the night and family was called. Patient family clarify patient's CODE STATUS to be full code. Patient was initiated on dopamine drip with plans for pacemaker tomorrow. Family updated 04/18: Patient denies any new complaints. He is scheduled for pacemaker insertion tomorrow. Heart rate is running in the 80s and 90s, blood pressure 136/73, pulse ox 95% on room air, afebrile Patient is currently on Diflucan for Jocelyn in urine, Kaiser catheter in place. Repeat blood work reveals hemoglobin 8.1, BUN 44 creatinine 1.71. Discharge plan will be to return to [facility] most likely on Sunday. 04/19: Patient underwent dual-chamber permanent pacemaker implantation this morning. He states he is feeling better than he has a long time. Heart rate is in the 60s and 70s, blood pressure 93/57, pulse ox 85-96% on room air. Patient is continued on fluconazole. He is on IV fluids 0.9 normal saline at 50 ML's per hour. Repeat blood work ordered for tomorrow. 04/20: DISCHARGE DIAGNOSES 1. Acute bradycardia with episodes of nonsustained V. tach. 2. Acute kidney injury secondary to ATN secondary to hemodynamic instability with component of obstructive uropathy. 3. Chronic kidney disease stage IV secondary to nephrosclerosis with baseline creatinine of 2. 53. 4. Acute urinary tract infection with urine culture positive for yeast. 5. Chronic bilateral hydronephrosis with history of incomplete bladder emptying. 6. Hypothyroidism. 7. Anemia of chronic kidney disease. 8. Paroxysmal atrial fibrillation. 9. 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 10. History of hypertension. 11. Atherosclerotic heart disease. DISCHARGE PLAN Return to [facility] under the care of Dr. Bess Greater than 35 minutes was utilized and coordinating patient's discharge. Impression and plan of care have been directed as dictated by the signing physician. Tena Silva nurse practitioner acting as scribe for signing physician. Patient Condition at Discharge: Good Plan - Discharge Summary Discharge Rx Participant: No New Discharge Prescriptions: New Amiodarone [Cordarone] 100 mg PO BID #0 tab Fluconazole [Diflucan] 100 mg PO DAILY #7 tab Continue Cyanocobalamin [Vitamin B-12] 500 mcg PO BID@0800,2100 Tamsulosin [Flomax] 0.4 mg PO DAILY@0800 Magnesium Oxide 420mg 420 mg PO DAILY@1700 Multivitamins, Thera [Multivitamin (formulary)] 1 tab PO DAILY@0800 [place]-3 Fatty Acids/Fish Oil [Fish Oil 1,000 mg Softgel] 2 cap PO DAILY@0800 Aspirin 81 mg PO DAILY@0800 bisacodyL [Dulcolax] 10 mg RECTAL DAILY PRN PRN Reason: Constipation Sennosides-Docusate Sodium [Senokot-S] 2 tab PO DAILY@0800 Magnesium Hydroxide [Milk of Magnesia Concentrate] 7,200 mg PO DAILY PRN PRN Reason: Constipation Zinc 50 mg PO DAILY@0800 Cranberry Fruit Extract [Cranberry] 500 mg PO DAILY@0800 Acetaminophen Tab [Tylenol] 650 mg PO Q6HR PRN PRN Reason: Fever And/ Or Pain Lactose-Reduced Food [Ensure Plus] 237 ml PO TID@0800,1200,1700 Sodium Bicarbonate Tab 650 mg PO BID@0800,2100 Sodium Zirconium Cyclosilicate [Lokelma] 10 gm PO Q48H Darbepoetin Tez [Aranesp] 60 mcg SQ SA@0800 Discontinued Metoprolol Tartrate [Lopressor] 25 mg PO BID@0800,1700 Flecainide [Tambocor] 50 mg PO BID@0800,2100 Discharge Medication List Cyanocobalamin [Vitamin B-12] 500 mcg PO BID@0800,2100 05/01/19 [History] Tamsulosin [Flomax] 0.4 mg PO DAILY@0800 05/01/19 [History] Magnesium Oxide 420mg 420 mg PO DAILY@1700 03/12/20 [History] Aspirin 81 mg PO DAILY@0800 09/20/20 [History] Multivitamins, Thera [Multivitamin (formulary)] 1 tab PO DAILY@0800 09/20/20 [History] [place]-3 Fatty Acids/Fish Oil [Fish Oil 1,000 mg Softgel] 2 cap PO DAILY@0800 09/20/20 [History] Zinc 50 mg PO DAILY@0800 09/20/20 [History] Cranberry Fruit Extract [Cranberry] 500 mg PO DAILY@0800 11/16/20 [History] Acetaminophen Tab [Tylenol] 650 mg PO Q6HR PRN 04/12/21 [History] Darbepoetin Tez [Aranesp] 60 mcg SQ SA@0804/12/21 [History] Lactose-Reduced Food [Ensure Plus] 237 ml PO TID@0800,1200,1700 04/12/21 [History] Magnesium Hydroxide [Milk of Magnesia Concentrate] 7,200 mg PO DAILY PRN 04/12/21 [History] Sennosides-Docusate Sodium [Senokot-S] 2 tab PO DAILY@0800 04/12/21 [History] Sodium Bicarbonate Tab 650 mg PO BID@0800,2100 04/12/21 [History] Sodium Zirconium Cyclosilicate [Lokelma] 10 gm PO Q48H 04/12/21 [History] bisacodyL [Dulcolax] 10 mg RECTAL DAILY PRN 04/12/21 [History] Amiodarone [Cordarone] 100 mg PO BID #0 tab 04/18/21 [Rx] Fluconazole [Diflucan] 100 mg PO DAILY #7 tab 04/18/21 [Rx] Follow up Appointment(s)/Referral(s): Ramana Bess MD [Primary Care Provider] - 1 Week (at [facility]) Discharge Disposition: TRANSFER TO SNF/[facility]
--- NOTE | 2021-04-18 11:49 | P.PN ---
Subjective Progress Note Date: 04/18/21 HISTORY OF PRESENT ILLNESS: 04/14/2021 This is a pleasant 89-year-old male past medical history significant for paroxysmal atrial fibrillation not on anticoagulation due to GI bleed, hyperlipidemia, hypertension, CVA. He follows with Dr. Dunlap. We have been asked to see in consultation for bradycardia. Patient lives at [facility], and was found to be bradycardia and confused. Patient has a positive UTI and acute renal failure. His EKG showed bradycardia with a heart rate of 32. His flecainide and metoprolol continue to be on hold. Patient seen and examined at bedside, he is alert, confused, oriented to self and place, confused about why he is in the hospital. He continues to state "please let me go", and "Im ready to ". He denies chest pain, shortness of breath, lightheadedness, dizziness. He is currently on dopamine 2.5mcg for bradycardia. Telemetry reviewed, patient continues to have heart rates in the 30s. Patient is a no code and declining any invasive treatments. Blood pressure 137/60, heart rate 50, afebrile, saturations 97% on room air. Echocardiogram revealed EF 50-55%, RV is moderately to severely enlarged, moderate aortic sclerosis, mild aortic stenosis peak/mean gradient of 25mmHg/13 mmHg. Telemetry reviewed, patient appears to be going into episodes of 3rd degree av block this morning, currently sinus bradycardia HR 30s-40s 04/15/2021 Patient is examined today resting in bed he is alert but pleasantly confused. He denies chest pain, dyspnea, dizziness, or syncope. Patient continues on a dopamine drip. Will discontinue dopamine drip and start amiodarone 50 mg daily. He was also started on leveothyroxine for an elevated TSH. Will obtain an EKG of the patient's current rhythm. She still remains bradycardia with a heart rat e in the 50s. Echocardiogram revealed a normal LV function with an ejection fraction of 50-55% moderate aortic sclerosis, mild aortic stenosis, and mild MR, mild TR. Nurse spoke to the patient's son. At this time they do not wish to proceed with a pacemaker and would prefer him to be medically managed. 04/16/21 Patient remains alert but pleasantly confused, when patient has moments of clarity he states are not here for a picnic with skin demo we need to get done. He is seen resting in bed with no signs of acute distress. He denies chest pain, dyspnea, dizziness, or syncope. Patient's dopamine drip was discontinued yesterday. He started having occasional beats of V. tach, with a heart rate in the 40s or 50s. Patient was started on by mouth amiodarone yesterday. Will increase amiodarone to 100 mg twice a day. She continues on leveothyroxine for an elevated TSH. Family at this time does not want to proceed with a pacemaker and would prefer patient to be medically managed due to his age and current mental state. 04/17/2021 Patient is resting comfortably this morning. Remains in sinus rhythm with sinus tachycardia. He has had a fairly difficult last night has had runs of bra dycardia and also had frequent PVCs and nonsustained VT. I'm told by the nurse that both the patient and family have not changed their mind and wish to have a permanent pacemaker done. This fills normally help us deal with the bradycardia arrhythmia and he'll give us the opportunity to put him on some beta blockers to deal with the ventricular ectopy. Patient had an echocardiogram on this admission that revealed normal LV systolic function with mild aortic stenosis in EKG early this morning shows sinus tachycardia with first-degree AV block and right bundle branch block with evidence of prior inferior wall myocardial infarction I will keep him nothing by mouth past midnight for possible permanent pacemaker tomorrow Patient has a UTI and is currently on fluconazole for the same On exam today he is comfortable at rest vital signs are stable chest exam reveals diminished air entry with occasional rhonchi heart exam reveals first and second heart sounds and ejection systolic murmur in the aortic area abdomen is soft exam extremities reveals mild edema 04/18/2021 Patient examined this morning at the bedside. He denies chest pain or pressure. Denies shortness of breath. Vital signs stable. Patient remains in sinus mechanism with a heart rate in the 90s. Blood pressure 136/73. Echocardiogram completed revealing ejection fraction 50-55%, mild aortic stenosis, mild mitral regurgitation, and mild tricuspid regurgitation PHYSICAL EXAM: VITAL SIGNS: Reviewed. GENERAL: Well-developed in no acute distress. NECK: Supple. No JVD or thyromegaly LUNGS: Respirations even and unlabored. Lungs diminished to auscultation bilaterally. HEART: Regular rate and rhythm. S1 and S2 heard. Systolic murmur. EXTREMITIES: Normal range of motion. No clubbing or cyanosis. Peripheral pulses intact. No lower extremity edema ASSESSMENT: Asymptomatic bradycardia Nonsustained ventricular tachycardia Urinary tract infection Chronic kidney disease Paroxysmal atrial fibrillation, not on anticoagulation due to history of GI bleed History of hypertension Hyperlipidemia PLAN: Continue to hold any AV david blocking agents Continue telemetry monitoring NPO at midnight Patient to undergo PPM tomorrow with Dr. Dunlap Further recommendations pending patient course Nurse practitioner note has been reviewed by physician. Signing provider agrees with the documented findings, assessment, and plan of care. Objective - Vital Signs Vital signs: Vital Signs Temp 98.3 F 04/18/21 08:00 Pulse 98 04/18/21 08:00 Resp 18 04/18/21 08:00 BP 136/73 04/18/21 08:00 Pulse Ox 95 04/18/21 08:00 Intake & Output 04/17/21 04/18/21 04/18/21 18:59 06:59 18:59 Intake Total 200 150 Output Total 700 400 Balance -700 -200 150 Intake: Intake, IV Titration 200 50 Amount Sodium Chloride 0.9% 1, 200 000 ml @ 50 mls/hr IV . Q20H [facility] Rx#:[id number] Sodium Chloride 0.9% 1, 50 000 ml @ 50 mls/hr IV . Q20H [facility] Rx#:[id number] Oral 100 Output: Urine 700 400 Other: Voiding Method Indwelling Catheter Indwelling Catheter Indwelling Catheter # Voids 1 1 # Bowel Movements 1 1 - Labs CBC & Chem 7: 04/18/21 07:11 04/18/21 07:11 Labs: Abnormal Lab Results - Last 24 Hours (Table) 04/18/21 04/18/21 Range/Units 07:11 07:11 RBC 2.49 L (4.30-5.90) m/uL Hgb 8.1 L (13.0-17.5) gm/dL Hct 27.2 L (39.0-53.0) % MCV 109.2 H (80.0-100.0) fL MCHC 29.9 L (31.0-37.0) g/dL Lymphocytes # 0.5 L (1.0-4.8) k/uL Macrocytosis Marked A Chloride 116 H (98-107) mmol/L Carbon Dioxide 19 L (22-30) mmol/L BUN 44 H (9-20) mg/dL Creatinine 1.71 H (0.66-1.25) mg/dL Total Protein 5.2 L (6.3-8.2) g/dL Albumin 2.3 L (3.5-5.0) g/dL
--- NOTE | 2021-04-18 12:25 | P.PN ---
Subjective Progress Note Date: 04/18/21 HISTORY OF PRESENT ILLNESS This is an 89-year-old male patient of Dr. Bess and Dr. Dunlap residing at [facility] known to have history of prostate cancer along with obstructive uropathy and recurrent kidney stone with recurrent UTI, chronic hydronephrosis, chronic kidney disease stage IV, paroxysmal atrial fibrillation, history of GI bleed, hypertension, atherosclerotic heart disease, moderate protein calorie malnutrition. Patient was transferred from [facility] to [facility] emergency center on 04/12 due to bradycardia and increased confusion and treated for acute urinary tract infection and acute kidney injury. Patient was inadvertently admitted under Dr. Ramana Tejada by mistake. When family were in contact with [facility] they stated that Dr. Bess is his physician and they wanted the patient's care switched to Dr. Bess. Patient has been seen and followed by cardiology and was on dopamine drip which will be discontinued today, start patient on amiodarone 50 mg daily. Patient is also been started on levothyroxine well admitted for an elevated TSH. Heart rate is now running in the 50s. Echocardiogram revealed EF of 50-55%, moderate aortic sclerosis and mild aortic stenosis, mild MR and mild TR. Family requested that no aggressive treatment be provided and did not want to pursue pacemaker and requested medical management only. Patient has also been seen and followed by nephrology for acute kidney injury secondary to ATN secondary to hemodynamic instability with component of obstructive uropathy. Creatinine on admission was 3.23 and now down to 2.19. Patient is maintained on normal saline at 50 mL per hour. He has also undergoing iron infusions. Dr. Moreira has evaluated the patient for chronic hydronephrosis with no plan for intervention. Patient has Kaiser and a trial of voiding prior to discharge Jocelyn on. Once Kaiser is removed, no need for Kaiser replacement if PVR is less than 300. 04/16 patient examined bedside. He is confused and hard of hearing. Patient continues to have episode of V. tach overnight with heartrate running between 46-51. Cardiology increased to anemia drawn 100 mg twice a day. 04/17 patient examined bedside. Apparently patient's heart rate dropped to the 30s in the night and family was called. Patient family clarify patient's CODE STATUS to be full code. Patient was initiated on dopamine drip with plans for pacemaker tomorrow. Family updated 04/18: Patient denies any new complaints. He is scheduled for pacemaker insertion tomorrow. Heart rate is running in the 80s and 90s, blood pressure 136/73, pulse ox 95% on room air, afebrile Patient is currently on Diflucan for Jocelyn in urine, Kaiser catheter in place. Repeat blood work reveals hemoglobin 8.1, BUN 44 creatinine 1.71. Discharge plan will be to return to [facility] most likely on Sunday. REVIEW OF SYSTEMS Constitutional: No fever, no chills, no night sweats. Chronic weight loss with decreased appetitie, reported weakness and fatigue and daytime sleepiness with debility not been able to ambulate and walk. EENT: No headache. No blurred vision or double vision, no loss of vision. Chronic loss of Hearing. No nasal drainage or congestion. No epistaxis. No sore throat. Lungs: No shortness of breath with no cough no wheezes. Cardiovascular: Positive PND orthopnea palpitations and along with lightheadedness. No syncopal episodes. Abdominal: Abdominal discomfort with nausea no vomiting has a significant change in bowel habits along with worsening appetite Genitourinary: Hematuria with frequency urgency burning discomfort with history of prostate cancer. Musculoskeletal: No myalgias. Noted muscle weakness, noted gait dysfunction, no frequent falls. Positive back and neck pain. Integumentary: No wounds, no lesions. No rash or pruritus. No unusual bruising. Neurologic: No aphasia. No facial droop. Noted change in mentation with chronic dementia. No head injury. No headache. No paralysis. No paresthesia. Psychiatric: No depression. No anxiety. No mood swings. Endocrine: No abnormal blood sugars. No weight change. PHYSICAL EXAMINATION Gen: This is elderly frail appearing 89-year-old male. Patient is resting in bed and appears to be comfortable and in no acute distress. HEENT: Head is atraumatic, normocephalic. Pupils equal, round. Sclerae is anicteric. NECK: Supple. No JVD. No lymphadenopathy. No thyromegaly. LUNGS: Decreased breath sound bilaterally, no wheezes, no accessory muscle usage. HEART: Irregular rate and rhythm. Positive systolic murmur with positive S3. ABDOMEN: Soft. Bowel sounds are present. Abdominal tenderness, no rebound or rigidity. Kaiser catheter draining terry urine. EXTREMITIES: No pedal edema. No calf tenderness. NEUROLOGICAL: Patient is awake, alert and oriented to person confusion. Positive generalized weakness or fatigue. ASSESSMENT AND PLAN 1. Acute bradycardia with episodes of V. tach. Cardiology consult appreciated. Hold Lopressor and flecainide. Continue amiodarone 100 mg twice daily, pacemaker insertion scheduled for Sunday. 2. Acute kidney injury secondary to ATN secondary to hemodynamic instability with component of obstructive uropathy. Nephrology consult appreciated. avoid nephrotoxic agents. 3. Chronic kidney disease stage IV secondary to nephrosclerosis with baseline creatinine of 2. 53. 4. Acute urinary tract infection with urine culture positive for yeast. Patient has been on ceftriaxone 1 g daily. Rocephin discontinued patient on Diflucan 100 mg daily 5. Chronic bilateral hydronephrosis with history of incomplete bladder emptying. Kaiser catheter in place, plan for trial of voiding before discharge and only replace Kaiser if PVR greater than 300. 6. Hypothyroidism. Patienton levothyroxine 75 g daily. 7. Anemia of chronic kidney disease. Continue Aranesp 60 g weekly, Ferrlecit infusion daily 4. 8. Paroxysmal atrial fibrillation. Hold Lopressor and flecainide. No anticoagulation due to history of GI bleed. 9. 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 Continue Flomax 0.4 mg daily.. 10. History of hypertension. 11. Atherosclerotic heart disease: No chest pain or angina still seen cardiology regularly. 12. DVT prophylaxis: Continue early mobilization and knee-high BEVERLY hose. 13. GI prophylaxis. Pantoprazole. DISCHARGE PLAN Return to [facility] under the care of Dr. Bess on Sunday Impression and plan of care have been directed as dictated by the signing physician. Tena Silva nurse practitioner acting as scribe for signing physician. Objective - Vital Signs Vital signs: Vital Signs Temp 98 F 04/18/21 04:00 Pulse 87 04/18/21 04:00 Resp 17 04/18/21 04:00 BP 121/66 04/18/21 04:00 Pulse Ox 92 L 04/18/21 04:00 Intake & Output 04/17/21 04/18/21 04/18/21 18:59 06:59 18:59 Intake Total 200 Output Total 700 400 Balance -700 -200 Intake: Intake, IV Titration 200 Amount Sodium Chloride 0.9% 1, 200 000 ml @ 50 mls/hr IV . Q20H [facility] Rx#:[id number] Output: Urine 700 400 Other: Voiding Method Indwelling Catheter Indwelling Catheter # Voids 1 1 # Bowel Movements 1 1 - Labs CBC & Chem 7: 04/18/21 07:11 04/18/21 07:11 Labs: Abnormal Lab Results - Last 24 Hours (Table) 04/18/21 04/18/21 Range/Units 07:11 07:11 RBC 2.49 L (4.30-5.90) m/uL Hgb 8.1 L (13.0-17.5) gm/dL Hct 27.2 L (39.0-53.0) % MCV 109.2 H (80.0-100.0) fL MCHC 29.9 L (31.0-37.0) g/dL Lymphocytes # 0.5 L (1.0-4.8) k/uL Macrocytosis Marked A Chloride 116 H (98-107) mmol/L Carbon Dioxide 19 L (22-30) mmol/L BUN 44 H (9-20) mg/dL Creatinine 1.71 H (0.66-1.25) mg/dL Total Protein 5.2 L (6.3-8.2) g/dL Albumin 2.3 L (3.5-5.0) g/dL
[2021-04-18] MEDS: MORPHINE SULFATE 4 MG/ML SYRINGE IV PRN (20:17)
[2021-04-18 20:59] LABS: Glucose,Whole Blood 115 mg/dL (75-99)
[2021-04-19] MEDS: SODIUM BICARBONATE TAB 650 MG TAB PO SCH ×2 (05:21→20:58)
[2021-04-19] MEDS: LEVOTHYROXINE 75 MCG TAB PO SCH (05:21)
[2021-04-19 05:22] LABS: Glucose,Whole Blood 104 mg/dL (75-99)
[2021-04-19] MEDS: MULTIVITAMINS, THERA 1 EACH TAB PO SCH (05:22)
[2021-04-19] MEDS: FLUCONAZOLE 100 MG TAB PO SCH (05:22)
[2021-04-19] MEDS: TAMSULOSIN 0.4 MG CAP.ER.24H PO SCH (05:22)
[2021-04-19] MEDS: AMIODARONE 100 MG TAB PO SCH ×2 (05:22→20:58)
[2021-04-19] MEDS: PANTOPRAZOLE 40 MG TABLET PO SCH (05:22)
[2021-04-19] MEDS: SODIUM CHLORIDE 0.9% 1,000 ML IV SCH (06:37)
[2021-04-19] MEDS ORDERED: ceFAZolin 1 GM in SODIUM CHLORIDE 0.9% 250 ML IRRIGATION PRN (07:00)
[2021-04-19] MEDS ORDERED: SODIUM CHLORIDE 0.9% 250 ML IV ONE (07:10)
[2021-04-19] MEDS ORDERED: IOPAMIDOL-250 50ML BTL IV ONE ×2 (07:29)
[2021-04-19] MEDS ORDERED: LIDOCAINE 1% INJ 10MG/ML (20 ML MDV) ONE (07:42)
[2021-04-19] MEDS ORDERED: LIDOCAINE 1% INJ 10MG/ML (20 ML MDV) SQ ONE ×2 (08:02→08:10)
[2021-04-19] MEDS ORDERED: fentaNYL (PF) 50 MCG/ML 2 ML AMP ONE (08:03)
[2021-04-19] MEDS ORDERED: fentaNYL (PF) 50 MCG/ML 2 ML AMP IV ONE (08:05)
[2021-04-19] MEDS: HEPARIN SODIUM,PORCINE/PF 5,000 UNIT/0.5 ML SYRINGE SQ SCH ×2 (08:09→20:57)
--- NOTE | 2021-04-19 09:29 | P.PCN ---
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 Patient required dopamine. He was advised to have permanent pacemaker implantation. CONSENT: Dr. Watkins has discussed the risks, benefits and alternative therapies for the above-mentioned procedure and for both sedation/analgesia as well as necessary blood product administration, if indicated, as they pertain to this patient. The patient has indicated understanding and acceptance of the risks and procedures discussed. PROCEDURE: Patient was brought to the lab in a fasting state. Patient was prepped and draped in the usual fashion. Patient was given IV sedation with fentanyl and Versed. The skin below the left clavicle was infiltrated with lidocaine. An incision was made parallel to deltopectoral groove was deepened until the pectoral fascia was exposed. A pocket was created by blunt dissection and cautery. Axillary venography was performed to delineate the course of the axillary vein. 2 sticks were performed into extrathoracic portion of the axillary vein and 2 sheaths were advanced over the guidewires and left in subclavian vein. Conscious Sedation: Versed [0mg Fentanyl 25 g Duration 75minutes LEADS: ATRIAL: This is manufactured by [employer]. The model number is 5076-45. The serial number is [id number] VENTRICULAR: This is manufactured by [employer]. The model number is 5076-58 and the serial number is [id number] The ventricular lead is maneuvered l with help of a straight and curved stylets into the left ventricle apical region. After multiple attempts, Satisfactory position was obtained and threshold measurements were made. The atrial lead was then maneuvered into the right atrial appendage. And thresholds were obtained. THRESHOLDS: ATRIUM: The minimal threshold for pacing was 0. 75 at pulse width of 0.4 with impedance of 437 P-wave: 2 mV VENTRICLE: Minimal threshold for pacing was 0.75 V at pulse width of 0.4 ms. The impedance is 855 R-wave: 7 mV The leads and pulse generator remained in the pocket after it was washed with antibiotics. Pocket was closed in the usual fashion. The fascia was closed with 2-0 Prolene ,the subcutaneous tissue was closed with 3-0 Prolene and the skin was closed with 4-0 Prolene. PROGRAMMING: MODE: DDDR RATE: 60 to 130 OUTPUT: Atrium : 3.5 Ventricle: 3.5 FINAL IMPRESSION: #1. Axillary venography #2. Permanent pacemaker insertion, dual-chamber COMPLICATIONS: None PLAN: Patient will monitored on the telemetry unit. Prophylactic antibiotics and be continued. Possible discharge within next 24-48 hours
--- NOTE | 2021-04-19 12:42 | P.PN ---
Subjective Principal diagnosis: Patient is seen for follow-up for acute kidney injury. Currently maintained on IVF at 50 mL an hour. Patient was bradycardic and therefore maintained on dopamine. Now discontinued. Creatinine down to 1.7 yesterday from 2.19 on 04/15/2021. Good urine output. 2.2 L for 24 hours. No labs today Status post pacemaker placement today Objective - Vital Signs Vital signs: Vital Signs Temp 97.8 F 04/19/21 03:05 Pulse 69 04/19/21 11:28 Resp 20 04/19/21 10:00 BP 93/57 04/19/21 11:28 Pulse Ox 85 L 04/19/21 11:28 Intake & Output 04/18/21 04/19/21 04/19/21 18:59 06:59 18:59 Intake Total 840 200 Output Total 900 1300 350 Balance -60 -1300 -150 Weight 58.967 kg Intake: IV 100 Intake, IV Titration 500 100 Amount Sodium Chloride 0.9% 1, 450 50 000 ml @ 50 mls/hr IV . Q20H [facility] Rx#:[id number] Sodium Chloride 0.9% 1, 50 000 ml @ 50 mls/hr IV . Q20H [facility] Rx#:[id number] ceFAZolin 2 gm In Sodium 50 Chloride 0.9% 50 ml @ 100 mls/hr IVPB Q6HR [facility] Rx# :[id number] Oral 340 Output: Urine 900 1300 350 Uretheral ([facility]) 500 Other: Voiding Method Indwelling Catheter Indwelling Catheter Indwelling Catheter # Bowel Movements 1 - Exam Patient is awake comfortable he is not in any acute distress. He is confused. Examination of the heart S1 and S2. Examination lungs bilateral breath sounds are heard decreased breath sounds at the bases. Abdomen is soft nontender Examination lower extremity shows 1+ edema bilaterally with chronic skin logan es. [employer] exam shows patient is moving all 4 extremities. He is status post pacemaker placement today - Labs CBC & Chem 7: 04/18/21 07:11 04/18/21 07:11 Labs: Abnormal Lab Results - Last 24 Hours (Table) 04/18/21 04/19/21 Range/Units 20:57 05:20 POC Glucose (mg/dL) 115 H 104 H (75-99) mg/dL Assessment and Plan Assessment: #1 acute kidney injury secondary to hemodynamic ATN and also component of obstructive uropathy. 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 #3 bradycardia, cardiology following, off of dopamine. Status post pacemaker placement today #4 anemia with chronic kidney disease #5 hypertension with chronic kidney disease #6 metabolic acidosis suspect secondary to IV fluids and component of CKD Plan: #1 continue with normal saline at 50 ML's an hour. #2 renal function stable, better than baseline. #3 avoid nephrotoxic agents and hypotensive episodes #4 repeat labs in a.m.
--- NOTE | 2021-04-19 14:18 | P.PN ---
Subjective Progress Note Date: 04/19/21 HISTORY OF PRESENT ILLNESS This is an 89-year-old male patient of Dr. Bess and Dr. Dunlap residing at [facility] known to have history of prostate cancer along with obstructive uropathy and recurrent kidney stone with recurrent UTI, chronic hydronephrosis, chronic kidney disease stage IV, paroxysmal atrial fibrillation, history of GI bleed, hypertension, atherosclerotic heart disease, moderate protein calorie malnutrition. Patient was transferred from [facility] to emergency center on 04/12 due to bradycardia and increased confusion and treated for acute urinary tract infection and acute kidney injury. Patient was inadvertently admitted under Dr. Ramana Tejada by mistake. When family were in contact with [facility] they stated that Dr. Bess is his physician and they wanted the patient's care switched to Dr. Bess. Patient has been seen and followed by cardiology and was on dopamine drip which will be discontinued today, start patient on amiodarone 50 mg daily. Patient is also been started on levothyroxine well admitted for an elevated TSH. Heart rate is now running in the 50s. Echocardiogram revealed EF of 50-55%, moderate aortic sclerosis and mild aortic stenosis, mild MR and mild TR. Family requested that no aggressive treatment be provided and did not want to pursue pacemaker and requested medical management only. Patient has also been seen and followed by nephrology for acute kidney injury secondary to ATN secondary to hemodynamic instability with component of obstructive uropathy. Creatinine on admission was 3.23 and now down to 2.19. Patient is maintained on normal saline at 50 mL per hour. He has also undergoing iron infusions. Dr. Moreira has evaluated the patient for chronic hydronephrosis with no plan for intervention. Patient has Kaiser and a trial of voiding prior to discharge Jocelyn on. Once Kaiser is removed, no need for Kaiser replacement if PVR is less than 300. 04/16 patient examined bedside. He is confused and hard of hearing. Patient continues to have episode of V. tach overnight with heartrate running between 46-51. Cardiology increased to anemia drawn 100 mg twice a day. 04/17 patient examined bedside. Apparently patient's heart rate dropped to the 30s in the night and family was called. Patient family clarify patient's CODE STATUS to be full code. Patient was initiated on dopamine drip with plans for pacemaker tomorrow. Family updated 04/18: Patient denies any new complaints. He is scheduled for pacemaker insertion tomorrow. Heart rate is running in the 80s and 90s, blood pressure 136/73, pulse ox 95% on room air, afebrile Patient is currently on Diflucan for Jocelyn in urine, Kaiser catheter in place. Repeat blood work reveals hemoglobin 8.1, BUN 44 creatinine 1.71. Discharge plan will be to return to [facility] most likely on Sunday. 04/19: Patient underwent dual-chamber permanent pacemaker implantation this morning. He states he is feeling better than he has a long time. Heart rate is in the 60s and 70s, blood pressure 93/57, pulse ox 85-96% on room air. Patient is continued on fluconazole. He is on IV fluids 0.9 normal saline at 50 ML's per hour. Repeat blood work ordered for tomorrow. REVIEW OF SYSTEMS Constitutional: No fever, no chills, no night sweats. Chronic weight loss with decreased appetitie, reported weakness and fatigue and daytime sleepiness with debility not been able to ambulate and walk. EENT: No headache. No blurred vision or double vision, no loss of vision. Chronic loss of Hearing. No nasal drainage or congestion. No epistaxis. No sore throat. Lungs: No shortness of breath with no cough no wheezes. Cardiovascular: Positive PND orthopnea denies palpitations and along with lightheadedness. No syncopal episodes. Abdominal: Abdominal discomfort with nausea no vomiting has a significant change in bowel habits along with worsening appetite Genitourinary: Hematuria with frequency urgency burning discomfort with history of prostate cancer. Musculoskeletal: No myalgias. Noted muscle weakness, noted gait dysfunction, no frequent falls. Positive back and neck pain. Integumentary: No wounds, no lesions. No rash or pruritus. No unusual bruising. Neurologic: No aphasia. No facial droop. Noted change in mentation with chronic dementia. No head injury. No headache. No paralysis. No paresthesia. Psychiatric: No depression. No anxiety. No mood swings. Endocrine: No abnormal blood sugars. No weight change. PHYSICAL EXAMINATION Gen: This is elderly frail appearing 89-year-old male. Patient is resting in bed and appears to be comfortable and in no acute distress. HEENT: Head is atraumatic, normocephalic. Pupils equal, round. Sclerae is anicteric. A is extremely hard of hearing. NECK: Supple. No JVD. No lymphadenopathy. No thyromegaly. LUNGS: Decreased breath sound bilaterally, no wheezes, no accessory muscle u kika. HEART: Irregular rate and rhythm. Positive systolic murmur with positive S3. ABDOMEN: Soft. Bowel sounds are present. Abdominal tenderness, no rebound or rigidity. Kaiser catheter draining terry urine. EXTREMITIES: No pedal edema. No calf tenderness. NEUROLOGICAL: Patient is awake, alert and oriented to person confusion. Positive generalized weakness or fatigue. ASSESSMENT AND PLAN 1. Acute bradycardia with episodes of V. tach that is post dual-chamber pacemaker 04/19. Cardiology consult appreciated. Hold Lopressor and flecainide. Continue amiodarone 100 mg twice daily. 2. Acute kidney injury secondary to ATN secondary to hemodynamic instability with component of obstructive uropathy. Nephrology consult appreciated. avoid nephrotoxic agents. Repeat BMP tomorrow. 3. Chronic kidney disease stage IV secondary to nephrosclerosis with baseline creatinine of 2. 53. 4. Acute urinary tract infection with urine culture positive for yeast. Patient has been on ceftriaxone 1 g daily. Rocephin discontinued patient on Diflucan 100 mg daily 5. Chronic bilateral hydronephrosis with history of incomplete bladder emptying. Kaiser catheter in place, plan for trial of voiding before discharge and only replace Kaiser if PVR greater than 300. 6. Hypothyroidism. Patienton levothyroxine 75 g daily. 7. Anemia of chronic kidney disease. Continue Aranesp 60 g weekly, Ferrlecit infusion daily 4. 8. Paroxysmal atrial fibrillation. Hold Lopressor and flecainide. No anticoagulation due to history of GI bleed. 9. 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 Continue Flomax 0.4 mg daily.. 10. History of hypertension. 11. Atherosclerotic heart disease: No chest pain or angina still seen cardiology regularly. 12. DVT prophylaxis: Continue early mobilization and knee-high BEVERLY hose. 13. GI prophylaxis. Pantoprazole. DISCHARGE PLAN Return to [facility] under the care of Dr. Bess on Sunday Impression and plan of care have been directed as dictated by the signing physician. Tena Silva nurse practitioner acting as scribe for signing physician. Objective - Vital Signs Vital signs: Vital Signs Temp 97.8 F 04/19/21 03:05 Pulse 108 H 04/19/21 03:05 Resp 20 04/19/21 10:00 BP 135/58 04/19/21 03:05 Pulse Ox 92 L 04/19/21 03:05 Intake & Output 04/18/21 04/19/21 04/19/21 18:59 06:59 18:59 Intake Total 840 200 Output Total 900 1300 Balance -60 -1300 200 Intake: IV 100 Intake, IV Titration 500 100 Amount Sodium Chloride 0.9% 1, 450 50 000 ml @ 50 mls/hr IV . Q20H [facility] Rx#:[id number] Sodium Chloride 0.9% 1, 50 000 ml @ 50 mls/hr IV . Q20H [facility] Rx#:[id number] ceFAZolin 2 gm In Sodium 50 Chloride 0.9% 50 ml @ 100 mls/hr IVPB Q6HR [facility] Rx# :[id number] Oral 340 Output: Urine 900 1300 Uretheral ([facility]) 500 Other: Voiding Method Indwelling Catheter Indwelling Catheter Indwelling Catheter # Bowel Movements 1 - Labs CBC & Chem 7: 04/18/21 07:11 04/18/21 07:11 Labs: Abnormal Lab Results - Last 24 Hours (Table) 04/18/21 04/19/21 Range/Units 20:57 05:20 POC Glucose (mg/dL) 115 H 104 H (75-99) mg/dL
[2021-04-20] MEDS: SODIUM CHLORIDE 0.9% 1,000 ML IV SCH (02:53)
[2021-04-20] MEDS: LEVOTHYROXINE 75 MCG TAB PO SCH (06:38)
[2021-04-20] MEDS: PANTOPRAZOLE 40 MG TABLET PO SCH (06:38)
[2021-04-20] MEDS: ACETAMINOPHEN TAB 325 MG TAB PO PRN (06:54)
--- NOTE | 2021-04-20 07:16 | XR ---
EXAMINATION TYPE: XR chest 2V DATE OF EXAM: 04/20/2021 COMPARISON: Chest x-ray one week ago. HISTORY: Pacemaker placement. TECHNIQUE: Frontal and lateral views of the chest are obtained. FINDINGS: There are new bilateral multifocal increased opacities. There are new small to moderate-si zed bilateral pleural effusions appreciated best on lateral view. Stable mild cardiomegaly with ather osclerotic thoracic aorta. New dual-lead pacemaker with leads terminating in right atrium and right v entricle. Advanced degenerative change left glenohumeral joint redemonstrated. IMPRESSION: New [id number] size bilateral pleural effusions. Areas of underlying new acute in filtrate cannot be excluded particularly right upper lobe. Correlate clinically. No pneumothorax seen after pacemaker placement. Leads appear satisfactory in position.
[2021-04-20 07:31] LABS: Calcium 8.8 mg/dL (8.4-10.2)
[2021-04-20] MEDS: SODIUM BICARBONATE TAB 650 MG TAB PO SCH ×3 (09:08→20:43)
[2021-04-20] MEDS: AMIODARONE 100 MG TAB PO SCH ×2 (09:08→20:43)
[2021-04-20] MEDS: MULTIVITAMINS, THERA 1 EACH TAB PO SCH (09:08)
[2021-04-20] MEDS: FLUCONAZOLE 100 MG TAB PO SCH (09:08)
[2021-04-20] MEDS: HEPARIN SODIUM,PORCINE/PF 5,000 UNIT/0.5 ML SYRINGE SQ SCH ×2 (09:09→20:43)
[2021-04-20] MEDS: TAMSULOSIN 0.4 MG CAP.ER.24H PO SCH (09:09)
[2021-04-20] MEDS ORDERED: BUMETANIDE 0.25 MG/ML 4 ML VIAL IVP STA (11:00)
[2021-04-20] MEDS ORDERED: AZITHROMYCIN 500 MG TAB PO STA (11:03)
--- NOTE | 2021-04-20 11:43 | P.PN ---
Subjective Principal diagnosis: Patient is seen for follow-up for acute kidney injury. Currently maintained on IVF at 50 mL an hour. Patient was bradycardic and therefore maintained on dopamine. Now discontinued. Creatinine down to 1.8 yesterday from 2.19 on 04/15/2021. Good urine output. 2.2 L for 24 hours. No complaints. Status post pacemaker placement yesterday Objective - Vital Signs Vital signs: Vital Signs Temp 98.4 F 04/20/21 08:00 Pulse 93 04/20/21 09:00 Resp 17 04/20/21 09:00 BP 104/55 04/20/21 08:00 Pulse Ox 95 04/20/21 08:00 Intake & Output 04/19/21 04/20/21 04/20/21 18:59 06:59 18:59 Intake Total 200 300 Output Total 350 1000 Balance -150 -700 Weight 58.967 kg Intake: IV 100 Intake, IV Titration 100 Amount Sodium Chloride 0.9% 1, 50 000 ml @ 50 mls/hr IV . Q20H [facility] Rx#:[id number] ceFAZolin 2 gm In Sodium 50 Chloride 0.9% 50 ml @ 100 mls/hr IVPB Q6HR [facility] Rx# :[id number] Oral 300 Output: Urine 350 1000 Uretheral ([facility]) 300 Other: Voiding Method Indwelling Catheter Indwelling Catheter Indwelling Catheter # Voids 250 # Bowel Movements 1 - Exam Patient is awake comfortable he is not in any acute distress. He is confused. Examination of the heart S1 and S2. Examination lungs bilateral breath sounds are heard decreased breath sounds at the bases. Abdomen is soft nontender Examination lower extremity shows trace edema bilaterally with chronic skin changes. [employer] exam shows patient is moving all 4 extremities. He is status post pacemaker placement today - Labs CBC & Chem 7: 04/18/21 07:11 04/20/21 06:44 Labs: Abnormal Lab Results - Last 24 Hours (Table) 04/20/21 Range/Units 06:44 Chloride 115 H (98-107) mmol/L Carbon Dioxide 17 L (22-30) mmol/L BUN 36 H (9-20) mg/dL Creatinine 1.81 H (0.66-1.25) mg/dL Glucose 108 H (74-99) mg/dL Assessment and Plan Assessment: #1 acute kidney injury secondary to hemodynamic ATN and also component of obstructive uropathy. 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 Creatinine now down to about 1.7-1.8 mg/dL #3 bradycardia, cardiology following, off of dopamine. Status post pacemaker placement today #4 anemia with chronic kidney disease #5 hypertension with chronic kidney disease #6 metabolic acidosis suspect secondary to IV fluids and component of CKD, maintained on oral sodium bicarb. This will be increased to 3 times a day, and switch fluids to Ringer lactate at 50 mL an hour Plan: #1 switch IV fluids to Ringer lactate at 50 ML's an hour. #2 renal function stable, better than baseline. #3 avoid nephrotoxic agents and hypotensive episodes #4 repeat labs in a.m. #5 increase sodium bicarb to 650 mg 3 times a day
[2021-04-20] MEDS: LACTATED RINGERS 1,000 ML IV SCH (11:46)
--- NOTE | 2021-04-20 11:48 | P.PN ---
Subjective Progress Note Date: 04/20/21 HISTORY OF PRESENT ILLNESS: 04/14/2021 This is a pleasant 89-year-old male past medical history significant for paroxysmal atrial fibrillation not on anticoagulation due to GI bleed, hyperlipidemia, hypertension, CVA. He follows with Dr. Dunlap. We have been asked to see in consultation for bradycardia. Patient lives at [facility], and was found to be bradycardia and confused. Patient has a positive UTI and acute renal failure. His EKG showed bradycardia with a heart rate of 32. His flecainide and metoprolol continue to be on hold. Patient seen and examined at bedside, he is alert, confused, oriented to self and place, confused about why he is in the hospital. He continues to state "please let me go", and "Im ready to ". He denies chest pain, shortness of breath, lightheadedness, dizziness. He is currently on dopamine 2.5mcg for bradycardia. Telemetry reviewed, patient continues to have heart rates in the 30s. Patient is a no code and declining any invasive treatments. Blood pressure 137/60, heart rate 50, afebrile, saturations 97% on room air. Echocardiogram revealed EF 50-55%, RV is moderately to severely enlarged, moderate aortic sclerosis, mild aortic stenosis peak/mean gradient of 25mmHg/13 mmHg. Telemetry reviewed, patient appears to be going into episodes of 3rd degree av block this morning, currently sinus bradycardia HR 30s-40s 04/15/2021 Patient is examined today resting in bed he is alert but pleasantly confused. He denies chest pain, dyspnea, dizziness, or syncope. Patient continues on a dopamine drip. Will discontinue dopamine drip and start amiodarone 50 mg daily. He was also started on leveothyroxine for an elevated TSH. Will obtain an EKG of the patient's current rhythm. She still remains bradycardia with a heart rat e in the 50s. Echocardiogram revealed a normal LV function with an ejection fraction of 50-55% moderate aortic sclerosis, mild aortic stenosis, and mild MR, mild TR. Nurse spoke to the patient's son. At this time they do not wish to proceed with a pacemaker and would prefer him to be medically managed. 04/16/21 Patient remains alert but pleasantly confused, when patient has moments of clarity he states are not here for a picnic with skin demo we need to get done. He is seen resting in bed with no signs of acute distress. He denies chest pain, dyspnea, dizziness, or syncope. Patient's dopamine drip was discontinued yesterday. He started having occasional beats of V. tach, with a heart rate in the 40s or 50s. Patient was started on by mouth amiodarone yesterday. Will increase amiodarone to 100 mg twice a day. She continues on leveothyroxine for an elevated TSH. Family at this time does not want to proceed with a pacemaker and would prefer patient to be medically managed due to his age and current mental state. 04/17/2021 Patient is resting comfortably this morning. Remains in sinus rhythm with sinus tachycardia. He has had a fairly difficult last night has had runs of bra dycardia and also had frequent PVCs and nonsustained VT. I'm told by the nurse that both the patient and family have not changed their mind and wish to have a permanent pacemaker done. This fills normally help us deal with the bradycardia arrhythmia and he'll give us the opportunity to put him on some beta blockers to deal with the ventricular ectopy. Patient had an echocardiogram on this admission that revealed normal LV systolic function with mild aortic stenosis in EKG early this morning shows sinus tachycardia with first-degree AV block and right bundle branch block with evidence of prior inferior wall myocardial infarction I will keep him nothing by mouth past midnight for possible permanent pacemaker tomorrow Patient has a UTI and is currently on fluconazole for the same On exam today he is comfortable at rest vital signs are stable chest exam reveals diminished air entry with occasional rhonchi heart exam reveals first and second heart sounds and ejection systolic murmur in the aortic area abdomen is soft exam extremities reveals mild edema 04/18/2021 Patient examined this morning at the bedside. He denies chest pain or pressure. Denies shortness of breath. Vital signs stable. Patient remains in sinus mechanism with a heart rate in the 90s. Blood pressure 136/73. Echocardiogram completed revealing ejection fraction 50-55%, mild aortic stenosis, mild mitral regurgitation, and mild tricuspid regurgitation 04/19/2021 Patient examined this morning. He is s/p dual chamber pacemaker implantation. Device was checked this morning with no issues noted. Chest x-ray this morning reveals new small to moderate sized bilateral pleural effusions. Areas of underlying new acute infiltrate cannot be excluded. No pneumothorax seen after pacemaker placement. Patient denies having any shortness of breath. He denies chest pain or pressure. PHYSICAL EXAM: VITAL SIGNS: Reviewed. GENERAL: Well-developed in no acute distress. NECK: Supple. No JVD or thyromegaly LUNGS: Respirations even and unlabored. Lungs diminished to auscultation bilaterally. HEART: Regular rate and rhythm. S1 and S2 heard. Systolic murmur. EXTREMITIES: Normal range of motion. No clubbing or cyanosis. Peripheral pulses intact. No lower extremity edema ASSESSMENT: Asymptomatic bradycardia Nonsustained ventricular tachycardia Urinary tract infection Chronic kidney disease Paroxysmal atrial fibrillation, not on anticoagulation due to history of GI bleed History of hypertension Hyperlipidemia PLAN: Continue current cardiac medications Patient is stable from a cardiac standpoint Patient to follow up with Dr. Dunlap Nurse practitioner note has been reviewed by physician. Signing provider agrees with the documented findings, assessment, and plan of care. Objective - Vital Signs Vital signs: Vital Signs Temp 98.4 F 04/20/21 08:00 Pulse 93 04/20/21 09:00 Resp 17 04/20/21 09:00 BP 104/55 04/20/21 08:00 Pulse Ox 95 04/20/21 08:00 Intake & Output 04/19/21 04/20/21 04/20/21 18:59 06:59 18:59 Intake Total 200 300 Output Total 350 1000 Balance -150 -700 Weight 58.967 kg Intake: IV 100 Intake, IV Titration 100 Amount Sodium Chloride 0.9% 1, 50 000 ml @ 50 mls/hr IV . Q20H [facility] Rx#:[id number] ceFAZolin 2 gm In Sodium 50 Chloride 0.9% 50 ml @ 100 mls/hr IVPB Q6HR [facility] Rx# :[id number] Oral 300 Output: Urine 350 1000 Uretheral ([facility]) 300 Other: Voiding Method Indwelling Catheter Indwelling Catheter Indwelling Catheter # Voids 250 # Bowel Movements 1 - Labs CBC & Chem 7: 04/18/21 07:11 04/20/21 06:44 Labs: Abnormal Lab Results - Last 24 Hours (Table) 04/20/21 Range/Units 06:44 Chloride 115 H (98-107) mmol/L Carbon Dioxide 17 L (22-30) mmol/L BUN 36 H (9-20) mg/dL Creatinine 1.81 H (0.66-1.25) mg/dL Glucose 108 H (74-99) mg/dL
[2021-04-20] MEDS: IPRATROPIUM-ALBUTEROL 3 ML NEB INHALATION SCH ×2 (12:06→19:36)
--- NOTE | 2021-04-20 13:55 | P.PN ---
Subjective Progress Note Date: 04/20/21 HISTORY OF PRESENT ILLNESS This is an 89-year-old male patient of Dr. Bess and Dr. Dunlap residing at [facility] known to have history of prostate cancer along with obstructive uropathy and recurrent kidney stone with recurrent UTI, chronic hydronephrosis, chronic kidney disease stage IV, paroxysmal atrial fibrillation, history of GI bleed, hypertension, atherosclerotic heart disease, moderate protein calorie malnutrition. Patient was transferred from [facility] to [facility] emergency center on 04/12 due to bradycardia and increased confusion and treated for acute urinary tract infection and acute kidney injury. Patient was inadvertently admitted under Dr. Ramana Tejada by mistake. When family were in contact with [facility] they stated that Dr. Bess is his physician and they wanted the patient's care switched to Dr. Bess. Patient has been seen and followed by cardiology and was on dopamine drip which will be discontinued today, start patient on amiodarone 50 mg daily. Patient is also been started on levothyroxine well admitted for an elevated TSH. Heart rate is now running in the 50s. Echocardiogram revealed EF of 50-55%, moderate aortic sclerosis and mild aortic stenosis, mild MR and mild TR. Family requested that no aggressive treatment be provided and did not want to pursue pacemaker and requested medical management only. Patient has also been seen and followed by nephrology for acute kidney injury secondary to ATN secondary to hemodynamic instability with component of obstructive uropathy. Creatinine on admission was 3.23 and now down to 2.19. Patient is maintained on normal saline at 50 mL per hour. He has also undergoing iron infusions. Dr. Moreira has evaluated the patient for chronic hydronephrosis with no plan for intervention. Patient has Kaiser and a trial of voiding prior to discharge Jocelyn on. Once Kaiser is removed, no need for Kaiser replacement if PVR is less than 300. 04/16 patient examined bedside. He is confused and hard of hearing. Patient continues to have episode of V. tach overnight with heartrate running between 46-51. Cardiology increased to anemia drawn 100 mg twice a day. 04/17 patient examined bedside. Apparently patient's heart rate dropped to the 30s in the night and family was called. Patient family clarify patient's CODE STATUS to be full code. Patient was initiated on dopamine drip with plans for pacemaker tomorrow. Family updated 04/18: Patient denies any new complaints. He is scheduled for pacemaker insertion tomorrow. Heart rate is running in the 80s and 90s, blood pressure 136/73, pulse ox 95% on room air, afebrile Patient is currently on Diflucan for Jocelyn in urine, Kaiser catheter in place. Repeat blood work reveals hemoglobin 8.1, BUN 44 creatinine 1.71. Discharge plan will be to return to [facility] most likely on Sunday. 04/19: Patient underwent dual-chamber permanent pacemaker implantation this morning. He states he is feeling better than he has a long time. Heart rate is in the 60s and 70s, blood pressure 93/57, pulse ox 85-96% on room air. Patient is continued on fluconazole. He is on IV fluids 0.9 normal saline at 50 ML's per hour. Repeat blood work ordered for tomorrow. 04/20: Patient has significant wheezing this morning. Repeat chest x-ray reveals new small to moderate-sized bilateral pleural effusions. Areas of underlying new acute infiltrate cannot be excluded particularly right upper lobe. Correlate clinically. No pneumothorax seen after pacemaker placement. Leads appear satisfactory in position. IV fluids stopped, one dose of IV Lasix fo llowed by daily Lasix 20 mg oral, DuoNeb treatments 3 times daily, ceftriaxone and azithromycin added. Anticipate possible discharge tomorrow. REVIEW OF SYSTEMS Constitutional: No fever, no chills, no night sweats. Chronic weight loss with decreased appetitie, reported weakness and fatigue and daytime sleepiness with debility not been able to ambulate and walk. EENT: No headache. No blurred vision or double vision, no loss of vision. Chronic loss of Hearing. No nasal drainage or congestion. No epistaxis. No sore throat. Lungs: No shortness of breath with no cough noted wheezes. Cardiovascular: Positive PND orthopnea denies palpitations and along with lightheadedness. No syncopal episodes. Abdominal: Abdominal discomfort with nausea no vomiting has a significant change in bowel habits along with worsening appetite Genitourinary: Hematuria with frequency urgency burning discomfort with history of prostate cancer. Musculoskeletal: No myalgias. Noted muscle weakness, noted gait dysfunction, no frequent falls. Positive back and neck pain. Integumentary: No wounds, no lesions. No rash or pruritus. No unusual bruising. Neurologic: No aphasia. No facial droop. Noted change in mentation with chronic dementia. No head injury. No headache. No paralysis. No paresthesia. Psychiatric: No depression. No anxiety. No mood swings. Endocrine: No abnormal blood sugars. No weight change. PHYSICAL EXAMINATION Gen: This is elderly frail appearing 89-year-old male. Patient is resting in bed and appears to be comfortable and in no acute distress. HEENT: Head is atraumatic, normocephalic. Pupils equal, round. Sclerae is anicteric. A is extremely hard of hearing. NECK: Supple. No JVD. No lymphadenopathy. No thyromegaly. LUNGS: Decreased breath sound bilaterally, bilateral wheezes, no accessory muscle usage. HEART: Irregular rate and rhythm. Positive systolic murmur with positive S3. ABDOMEN: Soft. Bowel sounds are present. Abdominal tenderness, no rebound or rigidity. Kaiser catheter draining terry urine. EXTREMITIES: No pedal edema. No calf tenderness. NEUROLOGICAL: Patient is awake, alert and oriented to person confusion. Positive generalized weakness or fatigue. ASSESSMENT AND PLAN 1. Acute bradycardia with episodes of V. tach that is post dual-chamber pacemaker 04/19. Cardiology consult appreciated. Hold Lopressor and flecainide. Continue amiodarone 100 mg twice daily. 2. Acute kidney injury secondary to ATN secondary to hemodynamic instability with component of obstructive uropathy. Nephrology consult appreciated. avoid nephrotoxic agents. Repeat BMP tomorrow. 3. Chronic kidney disease stage IV secondary to nephrosclerosis with baseline creatinine of 2. 53. 4. Acute urinary tract infection with urine culture positive for yeast. Patient has been on ceftriaxone 1 g daily. Rocephin discontinued patient on Diflucan 100 mg daily 5. Chronic bilateral hydronephrosis with history of incomplete bladder emptying. Kaiser catheter in place, plan for trial of voiding before discharge and only replace Kaiser if PVR greater than 300. 6. Hypothyroidism. Patienton levothyroxine 75 g daily. 7. Anemia of chronic kidney disease. Continue Aranesp 60 g weekly, Ferrlecit infusion daily 4. 8. Paroxysmal atrial fibrillation. Hold Lopressor and flecainide. No anticoagulation due to history of GI bleed. 9. 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 Continue Flomax 0.4 mg daily.. 10. History of hypertension. 11. Atherosclerotic heart disease: No chest pain or angina still seen cardiology regularly. 12. Possible pneumonia. Patient on ceftriaxone and azithromycin, DuoNeb treatments, one dose of IV Lasix, stop IV fluids. DVT prophylaxis: Continue early mobilization and knee-high BEVERLY hose. 13. GI prophylaxis. Pantoprazole. DISCHARGE PLAN Return to [facility] under the care of Dr. Bess on Impression and plan of care have been directed as dictated by the signing physician. Tena Silva nurse practitioner acting as scribe for signing physician. Objective - Vital Signs Vital signs: Vital Signs Temp 98.4 F 04/20/21 08:00 Pulse 93 04/20/21 08:00 Resp 17 04/20/21 08:00 BP 104/55 04/20/21 08:00 Pulse Ox 95 04/20/21 08:00 Intake & Output 04/19/21 04/20/21 04/20/21 18:59 06:59 18:59 Intake Total 200 300 Output Total 350 1000 Balance -150 -700 Weight 58.967 kg Intake: IV 100 Intake, IV Titration 100 Amount Sodium Chloride 0.9% 1, 50 000 ml @ 50 mls/hr IV . Q20H [facility] Rx#:[id number] ceFAZolin 2 gm In Sodium 50 Chloride 0.9% 50 ml @ 100 mls/hr IVPB Q6HR [facility] Rx# :[id number] Oral 300 Output: Urine 350 1000 Uretheral (Kaiser) 300 Other: Voiding Method Indwelling Catheter Indwelling Catheter Indwelling Catheter # Voids 250 # Bowel Movements 1 - Labs CBC & Chem 7: 04/18/21 07:11 04/20/21 06:44 Labs: Abnormal Lab Results - Last 24 Hours (Table) 04/20/21 Range/Units 06:44 Chloride 115 H (98-107) mmol/L Carbon Dioxide 17 L (22-30) mmol/L BUN 36 H (9-20) mg/dL Creatinine 1.81 H (0.66-1.25) mg/dL Glucose 108 H (74-99) mg/dL
[2021-04-20] MEDS: MORPHINE SULFATE 4 MG/ML SYRINGE IV PRN (22:22)
[2021-04-21] MEDS: PANTOPRAZOLE 40 MG TABLET PO SCH (06:34)
[2021-04-21] MEDS: LEVOTHYROXINE 75 MCG TAB PO SCH (06:34)
[2021-04-21] MEDS: HEPARIN SODIUM,PORCINE/PF 5,000 UNIT/0.5 ML SYRINGE SQ SCH ×2 (08:39→21:31)
[2021-04-21] MEDS: FLUCONAZOLE 100 MG TAB PO SCH (08:39)
[2021-04-21] MEDS: TAMSULOSIN 0.4 MG CAP.ER.24H PO SCH (08:39)
[2021-04-21] MEDS: SODIUM BICARBONATE TAB 650 MG TAB PO SCH ×3 (08:39→21:32)
[2021-04-21] MEDS: AMIODARONE 100 MG TAB PO SCH ×2 (08:39→21:49)
[2021-04-21] MEDS: AZITHROMYCIN 500 MG TAB PO SCH (08:39)
[2021-04-21] MEDS: MULTIVITAMINS, THERA 1 EACH TAB PO SCH (08:39)
[2021-04-21] MEDS: BUMETANIDE 1 MG TAB PO SCH (08:41)
[2021-04-21] MEDS: LACTATED RINGERS 1,000 ML IV SCH (08:53)
[2021-04-21] MEDS: IPRATROPIUM-ALBUTEROL 3 ML NEB INHALATION SCH ×3 (09:20→20:07)
[2021-04-21 11:22] LABS: Calcium 8.6 mg/dL (8.4-10.2); Potassium 3.8 mmol/L (3.5-5.1)
--- NOTE | 2021-04-21 11:43 | P.PN ---
Subjective Principal diagnosis: Patient is seen for follow-up for acute kidney injury. Currently maintained on IVF at 50 mL an hour. Patient was bradycardic and therefore maintained on dopamine. Now discontinued. Creatinine down to 1.8 yesterday from 2.19 on 04/15/2021. Good urine output. 2.2 L for 24 hours. No complaints. Status post pacemaker placement Objective - Vital Signs Vital signs: Vital Signs Temp 98.1 F 04/21/21 08:00 Pulse 78 04/21/21 09:22 Resp 16 04/21/21 09:22 BP 144/57 04/21/21 08:00 Pulse Ox 92 L 04/21/21 09:22 Intake & Output 04/20/21 04/21/21 04/21/21 18:59 06:59 18:59 Intake Total 320 118 Output Total 920 400 Balance -600 -400 118 Intake: Oral 320 118 Output: Urine 920 400 Other: Voiding Method Indwelling Catheter Indwelling Catheter Indwelling Catheter # Bowel Movements 0 1 - Exam Patient is awake comfortable he is not in any acute distress. He is confused. Examination of the heart S1 and S2. Examination lungs bilateral breath sounds are heard decreased breath sounds at the bases. Abdomen is soft nontender Examination lower extremity shows trace edema bilaterally with chronic skin changes. 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 He is status post pacemaker placement - Labs CBC & Chem 7: 04/18/21 07:11 04/21/21 10:17 Labs: Abnormal Lab Results - Last 24 Hours (Table) 04/21/21 Range/Units 10:17 Chloride 115 H (98-107) mmol/L Carbon Dioxide 17 L (22-30) mmol/L BUN 41 H (9-20) mg/dL Creatinine 1.89 H (0.66-1.25) mg/dL Assessment and Plan Assessment: #1 acute kidney injury secondary to hemodynamic ATN and also component of obstructive uropathy. 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 Creatinine now down to about 1.7-1.8 mg/dL #3 bradycardia, cardiology following, off of dopamine. Status post pacemaker placement #4 anemia with chronic kidney disease #5 hypertension with chronic kidney disease #6 metabolic acidosis suspect secondary to IV fluids and component of CKD, maintained on oral sodium bicarb. This was increased to 3 times a day, and switch fluids to Ringer lactate at 50 mL an hour Plan: #1 continue Ringer lactate at 50 ML's an hour until discharge #2 renal function stable, better than baseline. #3 avoid nephrotoxic agents and hypotensive episodes #4 repeat labs in a.m. #5 continue sodium bicarb 3 times a day
--- NOTE | 2021-04-21 12:17 | P.PN ---
Subjective Progress Note Date: 04/21/21 HISTORY OF PRESENT ILLNESS This is an 89-year-old male patient of Dr. Bess and Dr. Dunlap residing at [facility] known to have history of prostate cancer along with obstructive uropathy and recurrent kidney stone with recurrent UTI, chronic hydronephrosis, chronic kidney disease stage IV, paroxysmal atrial fibrillation, history of GI bleed, hypertension, atherosclerotic heart disease, moderate protein calorie malnutrition. Patient was transferred from [facility] to [facility] emergency center on 04/12 due to bradycardia and increased confusion and treated for acute urinary tract infection and acute kidney injury. Patient was inadvertently admitted under Dr. Ramana Tejada by mistake. When family were in contact with [facility] they stated that Dr. Bess is his physician and they wanted the patient's care switched to Dr. Bess. Patient has been seen and followed by cardiology and was on dopamine drip which will be discontinued today, start patient on amiodarone 50 mg daily. Patient is also been started on levothyroxine well admitted for an elevated TSH. Heart rate is now running in the 50s. Echocardiogram revealed EF of 50-55%, moderate aortic sclerosis and mild aortic stenosis, mild MR and mild TR. Family requested that no aggressive treatment be provided and did not want to pursue pacemaker and requested medical management only. Patient has also been seen and followed by nephrology for acute kidney injury secondary to ATN secondary to hemodynamic instability with component of obstructive uropathy. Creatinine on admission was 3.23 and now down to 2.19. Patient is maintained on normal saline at 50 mL per hour. He has also undergoing iron infusions. Dr. Moreira has evaluated the patient for chronic hydronephrosis with no plan for intervention. Patient has Kaiser and a trial of voiding prior to discharge Jocelyn on. Once Kaiser is removed, no need for Kaiser replacement if PVR is less than 300. 04/16 patient examined bedside. He is confused and hard of hearing. Patient continues to have episode of V. tach overnight with heartrate running between 46-51. Cardiology increased to anemia drawn 100 mg twice a day. 04/17 patient examined bedside. Apparently patient's heart rate dropped to the 30s in the night and family was called. Patient family clarify patient's CODE STATUS to be full code. Patient was initiated on dopamine drip with plans for pacemaker tomorrow. Family updated 04/18: Patient denies any new complaints. He is scheduled for pacemaker insertion tomorrow. Heart rate is running in the 80s and 90s, blood pressure 136/73, pulse ox 95% on room air, afebrile Patient is currently on Diflucan for Jocelyn in urine, Kaiser catheter in place. Repeat blood work reveals hemoglobin 8.1, BUN 44 creatinine 1.71. Discharge plan will be to return to [facility] most likely on Sunday. 04/19: Patient underwent dual-chamber permanent pacemaker implantation this morning. He states he is feeling better than he has a long time. Heart rate is in the 60s and 70s, blood pressure 93/57, pulse ox 85-96% on room air. Patient is continued on fluconazole. He is on IV fluids 0.9 normal saline at 50 ML's per hour. Repeat blood work ordered for tomorrow. 04/20: Patient has significant wheezing this morning. Repeat chest x-ray reveals new small to moderate-sized bilateral pleural effusions. Areas of underlying new acute infiltrate cannot be excluded particularly right upper lobe. Correlate clinically. No pneumothorax seen after pacemaker placement. Leads appear satisfactory in position. IV fluids stopped, one dose of IV Lasix fo llowed by daily Lasix 20 mg oral, DuoNeb treatments 3 times daily, ceftriaxone and azithromycin added. Anticipate possible discharge tomorrow. 04/21: Patient continues to have increasing shortness of breath. We will change antibiotics to Zosyn for possible aspiration. Consult for speech therapy will be added for evaluation. Repeat chest x-ray ordered for tomorrow. Patient has been afebrile, heart rate running between 78 and 118, pulse ox 93% on 2 L, blood pressure 144/57. Repeat blood work reveals BUN 41 and creatinine 1.89. Potassium 3.8, CO2 17. Patient has had good urine output. Nephrology is changed IV fluids to L are at 50 ML's per hour. Anticipate probable discharge back to [facility] on Sunday. REVIEW OF SYSTEMS Constitutional: No fever, no chills, no night sweats. Chronic weight loss with decreased appetitie, reported weakness and fatigue and daytime sleepiness with debility not been able to ambulate and walk. EENT: No headache. No blurred vision or double vision, no loss of vision. Chronic loss of Hearing. No nasal drainage or congestion. No epistaxis. No sore throat. Lungs: Noted shortness of breath with no cough noted wheezes. Cardiovascular: Positive PND orthopnea denies palpitations and along with lightheadedness. No syncopal episodes. Abdominal: Abdominal discomfort with nausea no vomiting has a significant change in bowel habits along with worsening appetite Genitourinary: Hematuria with frequency urgency burning discomfort with history of prostate cancer. Musculoskeletal: No myalgias. Noted muscle weakness, noted gait dysfunction, no frequent falls. Positive back and neck pain. Integumentary: No wounds, no lesions. No rash or pruritus. No unusual bruising. Neurologic: No aphasia. No facial droop. Noted change in mentation with chronic dementia. No head injury. No headache. No paralysis. No paresthesia. Psychiatric: No depression. No anxiety. No mood swings. Endocrine: No abnormal blood sugars. No weight change. PHYSICAL EXAMINATION Gen: This is elderly frail appearing 89-year-old male. Patient is resting in bed and appears to be comfortable and in no acute distress. HEENT: Head is atraumatic, normocephalic. Pupils equal, round. Sclerae is anicteric. Patient is extremely hard of hearing. NECK: Supple. No JVD. No lymphadenopathy. No thyromegaly. LUNGS: Decreased breath sound bilaterally, bilateral wheezes, no accessory muscle usage. HEART: Irregular rate and rhythm. Positive systolic murmur with positive S3. 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 ABDOMEN: Soft. Bowel sounds are present. Abdominal tenderness, no rebound or rigidity. Kaiser catheter draining terry urine. EXTREMITIES: No pedal edema. No calf tenderness. NEUROLOGICAL: Patient is awake, alert and oriented x3. Positive generalized weakness or fatigue. ASSESSMENT AND PLAN 1. Acute bradycardia with episodes of V. tach that is post dual-chamber pacemaker 04/19. Cardiology consult appreciated. Hold Lopressor and flecainide. Continue amiodarone 100 mg twice daily. 2. Acute kidney injury secondary to ATN secondary to hemodynamic instability with component of obstructive uropathy. Nephrology consult appreciated. avoid nephrotoxic agents. LR at 50. 3. Chronic kidney disease stage IV secondary to nephrosclerosis with baseline creatinine of 2. 53. Continue sodium bicard 650 mg tid. 4. Acute urinary tract infection with urine culture positive for yeast. Continue patient on Diflucan 100 mg daily 5. Chronic bilateral hydronephrosis with history of incomplete bladder emptying. Kaiser catheter in place, plan for trial of voiding before discharge and only replace Kaiser if PVR greater than 300, continue Flomax or 0.4 mg daily. 6. Hypothyroidism. Patienton levothyroxine 75 g daily. 7. Anemia of chronic kidney disease. Continue Aranesp 60 g weekly, Ferrlecit infusion daily 4. 8. Paroxysmal atrial fibrillation. No anticoagulation due to history of GI bleed. 9. 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 Continue Flomax 0.4 mg daily. 10. History of hypertension. 11. Atherosclerotic heart disease: No chest pain or angina still seen cardiology regularly. 12. Possible pneumonia and possible aspiration. Ceftriaxone changed to Zosyn, continue azithromycin, DuoNeb treatments, one dose of IV Lasix, stop IV fluids. DVT prophylaxis: Continue early mobilization and knee-high BEVERLY hose. 13. GI prophylaxis. Pantoprazole. DISCHARGE PLAN Return to [facility] under the care of Dr. Bess on Sunday Impression and plan of care have been directed as dictated by the signing physician. Tena Silva nurse practitioner acting as scribe for signing physician. Objective - Vital Signs Vital signs: Vital Signs Temp 98.1 F 04/21/21 08:00 Pulse 78 04/21/21 09:22 Resp 16 04/21/21 09:22 BP 144/57 04/21/21 08:00 Pulse Ox 92 L 04/21/21 09:22 Intake & Output 04/20/21 04/21/21 04/21/21 18:59 06:59 18:59 Intake Total 320 118 Output Total 920 400 Balance -600 -400 118 Intake: Oral 320 118 Output: Urine 920 400 Other: Voiding Method Indwelling Catheter Indwelling Catheter Indwelling Catheter # Bowel Movements 0 - Labs CBC & Chem 7: 04/18/21 07:11 04/21/21 10:17
[2021-04-21] MEDS: PIPERACILLIN-TAZOBACTAM 3.375 GM in SODIUM CHLORIDE 0.9% 100 ML IVPB SCH ×2 (12:49→20:05)
--- NOTE | 2021-04-21 13:30 | P.PN ---
Subjective Progress Note Date: 04/21/21 HISTORY OF PRESENT ILLNESS: 04/14/2021 This is a pleasant 89-year-old male past medical history significant for paroxysmal atrial fibrillation not on anticoagulation due to GI bleed, hyperlipidemia, hypertension, CVA. He follows with Dr. Dunlap. We have been asked to see in consultation for bradycardia. Patient lives at [facility], and was found to be bradycardia and confused. Patient has a positive UTI and acute renal failure. His EKG showed bradycardia with a heart rate of 32. His flecainide and metoprolol continue to be on hold. Patient seen and examined at bedside, he is alert, confused, oriented to self and place, confused about why he is in the hospital. He continues to state "please let me go", and "Im ready to ". He denies chest pain, shortness of breath, lightheadedness, dizziness. He is currently on dopamine 2.5mcg for bradycardia. Telemetry reviewed, patient continues to have heart rates in the 30s. Patient is a no code and declining any invasive treatments. Blood pressure 137/60, heart rate 50, afebrile, saturations 97% on room air. Echocardiogram revealed EF 50-55%, RV is moderately to severely enlarged, moderate aortic sclerosis, mild aortic stenosis peak/mean gradient of 25mmHg/13 mmHg. Telemetry reviewed, patient appears to be going into episodes of 3rd degree av block this morning, currently sinus bradycardia HR 30s-40s 04/15/2021 Patient is examined today resting in bed he is alert but pleasantly confused. He denies chest pain, dyspnea, dizziness, or syncope. Patient continues on a dopamine drip. Will discontinue dopamine drip and start amiodarone 50 mg daily. He was also started on leveothyroxine for an elevated TSH. Will obtain an EKG of the patient's current rhythm. She still remains bradycardia with a heart rat e in the 50s. Echocardiogram revealed a normal LV function with an ejection fraction of 50-55% moderate aortic sclerosis, mild aortic stenosis, and mild MR, mild TR. Nurse spoke to the patient's son. At this time they do not wish to proceed with a pacemaker and would prefer him to be medically managed. 04/16/21 Patient remains alert but pleasantly confused, when patient has moments of clarity he states are not here for a picnic with skin demo we need to get done. He is seen resting in bed with no signs of acute distress. He denies chest pain, dyspnea, dizziness, or syncope. Patient's dopamine drip was discontinued yesterday. He started having occasional beats of V. tach, with a heart rate in the 40s or 50s. Patient was started on by mouth amiodarone yesterday. Will increase amiodarone to 100 mg twice a day. She continues on leveothyroxine for an elevated TSH. Family at this time does not want to proceed with a pacemaker and would prefer patient to be medically managed due to his age and current mental state. 04/17/2021 Patient is resting comfortably this morning. Remains in sinus rhythm with sinus tachycardia. He has had a fairly difficult last night has had runs of bra dycardia and also had frequent PVCs and nonsustained VT. I'm told by the nurse that both the patient and family have not changed their mind and wish to have a permanent pacemaker done. This fills normally help us deal with the bradycardia arrhythmia and he'll give us the opportunity to put him on some beta blockers to deal with the ventricular ectopy. Patient had an echocardiogram on this admission that revealed normal LV systolic function with mild aortic stenosis in EKG early this morning shows sinus tachycardia with first-degree AV block and right bundle branch block with evidence of prior inferior wall myocardial infarction I will keep him nothing by mouth past midnight for possible permanent pacemaker tomorrow Patient has a UTI and is currently on fluconazole for the same On exam today he is comfortable at rest vital signs are stable chest exam reveals diminished air entry with occasional rhonchi heart exam reveals first and second heart sounds and ejection systolic murmur in the aortic area abdomen is soft exam extremities reveals mild edema 04/18/2021 Patient examined this morning at the bedside. He denies chest pain or pressure. Denies shortness of breath. Vital signs stable. Patient remains in sinus mechanism with a heart rate in the 90s. Blood pressure 136/73. Echocardiogram completed revealing ejection fraction 50-55%, mild aortic stenosis, mild mitral regurgitation, and mild tricuspid regurgitation 04/20/2021 Patient examined this morning. He is s/p dual chamber pacemaker implantation. Device was checked this morning with no issues noted. Chest x-ray this morning reveals new small to moderate sized bilateral pleural effusions. Areas of underlying new acute infiltrate cannot be excluded. No pneumothorax seen after pacemaker placement. Patient denies having any shortness of breath. He denies chest pain or pressure. 04/21/2021 Patient examined this morning at the bedside. Patient denies chest pain or pressure. Patient reports shortness of breath this morning. He was started on Bumex per internal medicine. He has been receiving IV fluids per nephrology. PHYSICAL EXAM: VITAL SIGNS: Reviewed. GENERAL: Well-developed in no acute distress. NECK: Supple. No JVD or thyromegaly LUNGS: Respirations even and unlabored. Lungs diminished with bibasilar rales and expiratory wheezing noted HEART: Regular rate and rhythm. S1 and S2 heard. Systolic murmur. EXTREMITIES: Normal range of motion. No clubbing or cyanosis. Peripheral pulses intact. No lower extremity edema ASSESSMENT: Asymptomatic bradycardia Nonsustained ventricular tachycardia Urinary tract infection Chronic kidney disease Paroxysmal atrial fibrillation, not on anticoagulation due to history of GI bleed History of hypertension Hyperlipidemia Bilateral pleural effusions PLAN: Continue current cardiac medications Agreeable to diuresis with Bumex Discontinue IV fluids Further recommendations pending patient coruse Patient to follow up with Dr. Dunlap Nurse practitioner note has been reviewed by physician. Signing provider agrees with the documented findings, assessment, and plan of care. Objective - Vital Signs Vital signs: Vital Signs Temp 97.7 F 04/21/21 12:00 Pulse 78 04/21/21 12:23 Resp 18 04/21/21 12:23 BP 120/62 04/21/21 12:00 Pulse Ox 93 L 04/21/21 12:00 Intake & Output 04/20/21 04/21/21 04/21/21 18:59 06:59 18:59 Intake Total 320 118 Output Total 920 400 Balance -600 -400 118 Intake: Oral 320 118 Output: Urine 920 400 Other: Voiding Method Indwelling Catheter Indwelling Catheter Indwelling Catheter # Bowel Movements 0 1 - Labs CBC & Chem 7: 04/18/21 07:11 04/21/21 10:17 Labs: Abnormal Lab Results - Last 24 Hours (Table) 04/21/21 Range/Units 10:17 Chloride 115 H (98-107) mmol/L Carbon Dioxide 17 L (22-30) mmol/L BUN 41 H (9-20) mg/dL Creatinine 1.89 H (0.66-1.25) mg/dL
[2021-04-21] MEDS: MORPHINE SULFATE 4 MG/ML SYRINGE IV PRN (21:59)
[2021-04-22] MEDS: PIPERACILLIN-TAZOBACTAM 3.375 GM in SODIUM CHLORIDE 0.9% 100 ML IVPB SCH ×3 (04:22→19:53)
[2021-04-22] MEDS: LEVOTHYROXINE 75 MCG TAB PO SCH (06:26)
[2021-04-22] MEDS: PANTOPRAZOLE 40 MG TABLET PO SCH (06:26)
[2021-04-22 08:00] LABS: Calcium 8.8 mg/dL (8.4-10.2); Potassium 3.9 mmol/L (3.5-5.1)
[2021-04-22] MEDS: HEPARIN SODIUM,PORCINE/PF 5,000 UNIT/0.5 ML SYRINGE SQ SCH ×2 (08:09→19:53)
[2021-04-22] MEDS: FLUCONAZOLE 100 MG TAB PO SCH (08:09)
[2021-04-22] MEDS: AMIODARONE 100 MG TAB PO SCH ×2 (08:09→19:54)
[2021-04-22] MEDS: BUMETANIDE 1 MG TAB PO SCH (08:09)
[2021-04-22] MEDS: TAMSULOSIN 0.4 MG CAP.ER.24H PO SCH (08:09)
[2021-04-22] MEDS: MULTIVITAMINS, THERA 1 EACH TAB PO SCH (08:09)
[2021-04-22] MEDS: AZITHROMYCIN 500 MG TAB PO SCH (08:09)
[2021-04-22] MEDS: SODIUM BICARBONATE TAB 650 MG TAB PO SCH ×3 (08:09→19:54)
--- NOTE | 2021-04-22 09:00 | XR ---
EXAMINATION TYPE: XR chest 2V DATE OF EXAM: 04/22/2021 COMPARISON: 04/20/2021 HISTORY: 89 year-old male shortness of breath, pleural effusions TECHNIQUE: AP and lateral views FINDINGS: Left anterior chest wall pacemaker generator with right atrial and right ventricular leads. Heart upp er limits of normal in size. Continued [id number] layering pleural effusions and bilateral pat tommie airspace opacity. Relatively similar on the right but slightly improving on the left. IMPRESSION: Continued bilateral patchy airspace opacities, relatively similar on the right but with some improvem ent on the left. Small to moderate layering pleural effusions may be slightly increased.
[2021-04-22] MEDS: IPRATROPIUM-ALBUTEROL 3 ML NEB INHALATION SCH ×3 (09:05→20:28)
--- NOTE | 2021-04-22 12:42 | P.PN ---
Subjective Progress Note Date: 04/22/21 HISTORY OF PRESENT ILLNESS: 04/14/2021 This is a pleasant 89-year-old male past medical history significant for paroxysmal atrial fibrillation not on anticoagulation due to GI bleed, hyperlipidemia, hypertension, CVA. He follows with Dr. Dunlap. We have been asked to see in consultation for bradycardia. Patient lives at [facility], and was found to be bradycardia and confused. Patient has a positive UTI and acute renal failure. His EKG showed bradycardia with a heart rate of 32. His flecainide and metoprolol continue to be on hold. Patient seen and examined at bedside, he is alert, confused, oriented to self and place, confused about why he is in the hospital. He continues to state "please let me go", and "Im ready to ". He denies chest pain, shortness of breath, lightheadedness, dizziness. He is currently on dopamine 2.5mcg for bradycardia. Telemetry reviewed, patient continues to have heart rates in the 30s. Patient is a no code and declining any invasive treatments. Blood pressure 137/60, heart rate 50, afebrile, saturations 97% on room air. Echocardiogram revealed EF 50-55%, RV is moderately to severely enlarged, moderate aortic sclerosis, mild aortic stenosis peak/mean gradient of 25mmHg/13 mmHg. Telemetry reviewed, patient appears to be going into episodes of 3rd degree av block this morning, currently sinus bradycardia HR 30s-40s 04/15/2021 Patient is examined today resting in bed he is alert but pleasantly confused. He denies chest pain, dyspnea, dizziness, or syncope. Patient continues on a dopamine drip. Will discontinue dopamine drip and start amiodarone 50 mg daily. He was also started on leveothyroxine for an elevated TSH. Will obtain an EKG of the patient's current rhythm. She still remains bradycardia with a heart rat e in the 50s. Echocardiogram revealed a normal LV function with an ejection fraction of 50-55% moderate aortic sclerosis, mild aortic stenosis, and mild MR, mild TR. Nurse spoke to the patient's son. At this time they do not wish to proceed with a pacemaker and would prefer him to be medically managed. 04/16/21 Patient remains alert but pleasantly confused, when patient has moments of clarity he states are not here for a picnic with skin demo we need to get done. He is seen resting in bed with no signs of acute distress. He denies chest pain, dyspnea, dizziness, or syncope. Patient's dopamine drip was discontinued yesterday. He started having occasional beats of V. tach, with a heart rate in the 40s or 50s. Patient was started on by mouth amiodarone yesterday. Will increase amiodarone to 100 mg twice a day. She continues on leveothyroxine for an elevated TSH. Family at this time does not want to proceed with a pacemaker and would prefer patient to be medically managed due to his age and current mental state. 04/17/2021 Patient is resting comfortably this morning. Remains in sinus rhythm with sinus tachycardia. He has had a fairly difficult last night has had runs of bra dycardia and also had frequent PVCs and nonsustained VT. I'm told by the nurse that both the patient and family have not changed their mind and wish to have a permanent pacemaker done. This fills normally help us deal with the bradycardia arrhythmia and he'll give us the opportunity to put him on some beta blockers to deal with the ventricular ectopy. Patient had an echocardiogram on this admission that revealed normal LV systolic function with mild aortic stenosis in EKG early this morning shows sinus tachycardia with first-degree AV block and right bundle branch block with evidence of prior inferior wall myocardial infarction I will keep him nothing by mouth past midnight for possible permanent pacemaker tomorrow Patient has a UTI and is currently on fluconazole for the same On exam today he is comfortable at rest vital signs are stable chest exam reveals diminished air entry with occasional rhonchi heart exam reveals first and second heart sounds and ejection systolic murmur in the aortic area abdomen is soft exam extremities reveals mild edema 04/18/2021 Patient examined this morning at the bedside. He denies chest pain or pressure. Denies shortness of breath. Vital signs stable. Patient remains in sinus mechanism with a heart rate in the 90s. Blood pressure 136/73. Echocardiogram completed revealing ejection fraction 50-55%, mild aortic stenosis, mild mitral regurgitation, and mild tricuspid regurgitation 04/20/2021 Patient examined this morning. He is s/p dual chamber pacemaker implantation. Device was checked this morning with no issues noted. Chest x-ray this morning reveals new small to moderate sized bilateral pleural effusions. Areas of underlying new acute infiltrate cannot be excluded. No pneumothorax seen after pacemaker placement. Patient denies having any shortness of breath. He denies chest pain or pressure. 04/21/2021 Patient examined this morning at the bedside. Patient denies chest pain or pressure. Patient reports shortness of breath this morning. He was started on Bumex per internal medicine. He has been receiving IV fluids per nephrology. 04/22/2021 Patient examined this morning at the bedside. Patient denies chest pain or pressure. Patient's shortness of breath has improved. He remains on oral Bumex. Creatinine 1.97. Chest x-ray today reveals continued bilateral patchy airspace opacities, relatively similar on the right but with some improvement on the left. Small to moderate layering pleural effusions may be slightly increased. PHYSICAL EXAM: VITAL SIGNS: Reviewed. GENERAL: Well-developed in no acute distress. NECK: Supple. No JVD or thyromegaly LUNGS: Respirations even and unlabored. Lungs diminished HEART: Regular rate and rhythm. S1 and S2 heard. Systolic murmur. EXTREMITIES: Normal range of motion. No clubbing or cyanosis. Peripheral pulses intact. No lower extremity edema ASSESSMENT: Asymptomatic bradycardia Nonsustained ventricular tachycardia Urinary tract infection Chronic kidney disease Paroxysmal atrial fibrillation, not on anticoagulation due to history of GI bleed History of hypertension Hyperlipidemia Bilateral pleural effusions PLAN: Continue current cardiac medications No further inpatient recommendations from a cardiac standpoint We will sign off. Please reconsult if needed. Patient to follow up with Dr. Dunlap Nurse practitioner note has been reviewed by physician. Signing provider agrees with the documented findings, assessment, and plan of care. Objective - Vital Signs Vital signs: Vital Signs Temp 98.1 F 04/22/21 11:22 Pulse 107 H 04/22/21 11:22 Resp 18 04/22/21 11:22 BP 100/51 04/22/21 11:22 Pulse Ox 95 04/22/21 11:22 Intake & Output 04/21/21 04/22/21 04/22/21 18:59 06:59 18:59 Intake Total 476 1655 Output Total 500 600 Balance -24 1055 Weight 58.967 kg Intake: Intake, IV Titration 200 Amount Piperacillin-Tazobactam 3 200 .375 gm In Sodium Chloride 0.9% 100 ml @ 25 mls/hr IVPB Q8H SAHIL Rx#: [id number] Oral 476 1855 Output: Urine 500 600 Other: Voiding Method Indwelling Catheter Indwelling Catheter Indwelling Catheter # Bowel Movements 1 - Labs CBC & Chem 7: 04/18/21 07:11 04/22/21 07:04 Labs: Abnormal Lab Results - Last 24 Hours (Table) 04/22/21 Range/Units 07:04 Chloride 113 H (98-107) mmol/L Carbon Dioxide 18 L (22-30) mmol/L BUN 42 H (9-20) mg/dL Creatinine 1.97 H (0.66-1.25) mg/dL
--- NOTE | 2021-04-22 13:02 | P.PN ---
Subjective Progress Note Date: 04/22/21 HISTORY OF PRESENT ILLNESS This is an 89-year-old male patient of Dr. Bess and Dr. Dunlap residing at [facility] known to have history of prostate cancer along with obstructive uropathy and recurrent kidney stone with recurrent UTI, chronic hydronephrosis, chronic kidney disease stage IV, paroxysmal atrial fibrillation, history of GI bleed, hypertension, atherosclerotic heart disease, moderate protein calorie malnutrition. Patient was transferred from [facility] to [facility] emergency center on 04/12 due to bradycardia and increased confusion and treated for acute urinary tract infection and acute kidney injury. Patient was inadvertently admitted under Dr. Ramana Tejada by mistake. When family were in contact with [facility] they stated that Dr. Bess is his physician and they wanted the patient's care switched to Dr. Bess. Patient has been seen and followed by cardiology and was on dopamine drip which will be discontinued today, start patient on amiodarone 50 mg daily. Patient is also been started on levothyroxine well admitted for an elevated TSH. Heart rate is now running in the 50s. Echocardiogram revealed EF of 50-55%, moderate aortic sclerosis and mild aortic stenosis, mild MR and mild TR. Family requested that no aggressive treatment be provided and did not want to pursue pacemaker and requested medical management only. Patient has also been seen and followed by nephrology for acute kidney injury secondary to ATN secondary to hemodynamic instability with component of obstructive uropathy. Creatinine on admission was 3.23 and now down to 2.19. Patient is maintained on normal saline at 50 mL per hour. He has also undergoing iron infusions. Dr. Moreira has evaluated the patient for chronic hydronephrosis with no plan for intervention. Patient has Kaiser and a trial of voiding prior to discharge Ojcelyn on. Once Kaiser is removed, no need for Kaiser replacement if PVR is less than 300. 04/16 patient examined bedside. He is confused and hard of hearing. Patient continues to have episode of V. tach overnight with heartrate running between 46-51. Cardiology increased to anemia drawn 100 mg twice a day. 04/17 patient examined bedside. Apparently patient's heart rate dropped to the 30s in the night and family was called. Patient family clarify patient's CODE STATUS to be full code. Patient was initiated on dopamine drip with plans for pacemaker tomorrow. Family updated 04/18: Patient denies any new complaints. He is scheduled for pacemaker insertion tomorrow. Heart rate is running in the 80s and 90s, blood pressure 136/73, pulse ox 95% on room air, afebrile Patient is currently on Diflucan for Jocelyn in urine, Kaiser catheter in place. Repeat blood work reveals hemoglobin 8.1, BUN 44 creatinine 1.71. Discharge plan will be to return to [facility] most likely on Sunday. 04/19: Patient underwent dual-chamber permanent pacemaker implantation this morning. He states he is feeling better than he has a long time. Heart rate is in the 60s and 70s, blood pressure 93/57, pulse ox 85-96% on room air. Patient is continued on fluconazole. He is on IV fluids 0.9 normal saline at 50 ML's per hour. Repeat blood work ordered for tomorrow. 04/20: Patient has significant wheezing this morning. Repeat chest x-ray reveals new small to moderate-sized bilateral pleural effusions. Areas of underlying new acute infiltrate cannot be excluded particularly right upper lobe. Correlate clinically. No pneumothorax seen after pacemaker placement. Leads appear satisfactory in position. IV fluids stopped, one dose of IV Lasix fo llowed by daily Lasix 20 mg oral, DuoNeb treatments 3 times daily, ceftriaxone and azithromycin added. Anticipate possible discharge tomorrow. 04/21: Patient continues to have increasing shortness of breath. We will change antibiotics to Zosyn for possible aspiration. Consult for speech therapy will be added for evaluation. Repeat chest x-ray ordered for tomorrow. Patient has been afebrile, heart rate running between 78 and 118, pulse ox 93% on 2 L, blood pressure 144/57. Repeat blood work reveals BUN 41 and creatinine 1.89. Potassium 3.8, CO2 17. Patient has had good urine output. Nephrology is changed IV fluids to L are at 50 ML's per hour. Anticipate probable discharge back to [facility] on Sunday. 04/22: Patient's breathing status is significantly better today. He is on O2 at 2 L nasal cannula with pulse ox of 95%. His been afebrile, heart rate 107, blood pressure 100/51. Repeat blood work revealed BUN 42 and creatinine 1.97. CO2 is 18. Repeat coronavirus PCR which was done for him to go to snf was not detected. This will not need to be repeated on Sunday. Plan is for return to [facility] on Sunday. REVIEW OF SYSTEMS Constitutional: No fever, no chills, no night sweats. Chronic weight loss with decreased appetitie, reported weakness and fatigue and daytime sleepiness with debility not been able to ambulate and walk. EENT: No headache. No blurred vision or double vision, no loss of vision. Chronic loss of Hearing. No nasal drainage or congestion. No epistaxis. No sore throat. Lungs: Noted shortness of breath, improved with no cough noted wheezes. Cardiovascular: Positive PND orthopnea denies palpitations and along with lightheadedness. No syncopal episodes. Abdominal: Abdominal discomfort with nausea no vomiting has a significant change in bowel habits along with worsening appetite Genitourinary: Hematuria with frequency urgency burning discomfort with history of prostate cancer. Musculoskeletal: No myalgias. Noted muscle weakness, noted gait dysfunction, no frequent falls. Positive back and neck pain. Integumentary: No wounds, no lesions. No rash or pruritus. No unusual bruising. Neurologic: No aphasia. No facial droop. Noted change in mentation with chronic dementia. No head injury. No headache. No paralysis. No paresthesia. Psychiatric: No depression. No anxiety. No mood swings. Endocrine: No abnormal blood sugars. No weight change. PHYSICAL EXAMINATION Gen: This is elderly frail appearing 89-year-old male. Patient is resting in bed and appears to be comfortable and in no acute distress. HEENT: Head is atraumatic, normocephalic. Pupils equal, round. Sclerae is anicteric. Patient is extremely hard of hearing. NECK: Supple. No JVD. No lymphadenopathy. No thyromegaly. LUNGS: Decreased breath sound bilaterally, few scattered wheezes, no accessory muscle usage. HEART: Irregular rate and rhythm. Positive systolic murmur with positive S3. case monitor is sinus rhythm. ABDOMEN: Soft. Bowel sounds are present. Abdominal tenderness, no rebound or rigidity. Kaiser catheter draining terry urine. EXTREMITIES: No pedal edema. No calf tenderness. NEUROLOGICAL: Patient is awake, alert and oriented x3. Positive generalized weakness or fatigue. ASSESSMENT AND PLAN 1. Acute bradycardia with episodes of V. tach that is post dual-chamber pacemaker 04/19. Cardiology consult appreciated. Hold Lopressor and flecainide. Continue amiodarone 100 mg twice daily. 2. Acute kidney injury secondary to ATN secondary to hemodynamic instability with component of obstructive uropathy. Nephrology consult appreciated. avoid nephrotoxic agents. 3. Chronic kidney disease stage IV secondary to nephrosclerosis with baseline creatinine of 2. 53. Continue sodium bicard 650 mg tid. 4. Acute urinary tract infection with urine culture positive for yeast. Continue patient on Diflucan 100 mg daily 5. Chronic bilateral hydronephrosis with history of incomplete bladder emptying. Kaiser catheter in place, plan for trial of voiding before discharge and only replace Kaiser if PVR greater than 300, continue Flomax or 0.4 mg daily. 6. Hypothyroidism. Patienton levothyroxine 75 g daily. 7. Anemia of chronic kidney disease. Continue Aranesp 60 g weekly, Ferrlecit infusion daily 4. 8. Paroxysmal atrial fibrillation. No anticoagulation due to history of GI bleed. 9. 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 Continue Flomax 0.4 mg daily. 10. History of hypertension. 11. Atherosclerotic heart disease: No chest pain or angina still seen cardiology regularly. 12. Possible pneumonia and possible aspiration. Continue Zosyn, continue azithromycin, DuoNeb treatments, one dose of IV Lasix, stop IV fluids. DVT prophylaxis: Continue early mobilization and knee-high BEVERLY hose. 13. GI prophylaxis. Pantoprazole. DISCHARGE PLAN Return to [facility] on Sunday Impression and plan of care have been directed as dictated by the signing physician. Tena Silva nurse practitioner acting as scribe for signing physician. Objective - Vital Signs Vital signs: Vital Signs Temp 98.1 F 04/22/21 11:22 Pulse 107 H 04/22/21 11:22 Resp 18 04/22/21 11:22 BP 100/51 04/22/21 11:22 Pulse Ox 95 04/22/21 11:22 Intake & Output 04/21/21 04/22/21 04/22/21 18:59 06:59 18:59 Intake Total 476 1655 Output Total 500 600 400 Balance -24 1055 -400 Weight 58.967 kg Intake: Intake, IV Titration 200 Amount Piperacillin-Tazobactam 3 200 .375 gm In Sodium Chloride 0.9% 100 ml @ 25 mls/hr IVPB Q[facility]H [facility] Rx#: [id number] Oral 476 1455 Output: Urine 500 600 400 Other: Voiding Method Indwelling Catheter Indwelling Catheter Indwelling Catheter # Bowel Movements 1 - Labs CBC & Chem 7: 04/18/21 07:11 04/22/21 07:04 Labs: Abnormal Lab Results - Last 24 Hours (Table) 04/22/21 Range/Units 07:04 Chloride 113 H (98-107) mmol/L Carbon Dioxide 18 L (22-30) mmol/L BUN 42 H (9-20) mg/dL Creatinine 1.97 H (0.66-1.25) mg/dL
--- NOTE | 2021-04-22 17:11 | P.PN ---
Subjective Principal diagnosis: Patient is seen for follow-up for acute kidney injury. Patient was maintained on IVF at 50 mL an hour. He had developed shortness of breath which improved with diuresis and IV fluids were discontinued yesterday. Patient is status post pacemaker placement for bradycardia. Objective - Vital Signs Vital signs: Vital Signs Temp 98.5 F 04/22/21 16:00 Pulse 92 04/22/21 16:00 Resp 16 04/22/21 16:00 BP 94/49 04/22/21 16:00 Pulse Ox 97 04/22/21 16:00 Intake & Output 04/21/21 04/22/21 04/22/21 18:59 06:59 18:59 Intake Total 476 1655 Output Total 500 600 400 Balance -24 1055 -400 Weight 58.967 kg Intake: Intake, IV Titration 200 Amount Piperacillin-Tazobactam 3 200 .375 gm In Sodium Chloride 0.9% 100 ml @ 25 mls/hr IVPB Q8H [facility] Rx#: [id number] Oral 476 1455 Output: Urine 500 600 400 Other: Voiding Method Indwelling Catheter Indwelling Catheter Indwelling Catheter # Bowel Movements 1 - Exam Patient is awake comfortable he is not in any acute distress. Examination of the heart S1 and S2. Examination lungs bilateral breath sounds are heard decreased breath sounds at the bases. Abdomen is soft nontender Examination lower extremity shows trace edema bilaterally with chronic skin changes. TRANSIT MAN exam shows patient is moving all 4 extremities. He is status post pacemaker placement - Labs CBC & Chem 7: 04/18/21 07:11 04/22/21 07:04 Labs: Abnormal Lab Results - Last 24 Hours (Table) 04/22/21 Range/Units 07:04 Chloride 113 H (98-107) mmol/L Carbon Dioxide 18 L (22-30) mmol/L BUN 42 H (9-20) mg/dL Creatinine 1.97 H (0.66-1.25) mg/dL Assessment and Plan Assessment: #1 acute kidney injury secondary to hemodynamic ATN and also component of obstructive uropathy. Currently with Kaiser catheter. #2 CKD4 secondary to nephrosclerosis with a baseline creatinine of 2.0 MG per DL. Creatinine now down to about 1.7-1.8 mg/dL, today it is at 1.97. #3 bradycardia, cardiology following, off of dopamine. Status post pacemaker placement #4 anemia with chronic kidney disease #5 hypertension with chronic kidney disease #6 metabolic acidosis suspect secondary to IV fluids and component of CKD, maintained on oral sodium bicarb. This was increased to 3 times a day, and switched fluids to Ringer lactate at 50 mL an hour. Now discontinued due to hypervolemia. Plan: 1. Monitor renal function closely as serum creatinine is slowly increasing with diuresis. May continue with current dose of Bumex. 2. Repeat labs in a.m. 3. Continue with Aranesp 4. Continue with sodium bicarb by mouth.
[2021-04-22] MEDS: ACETAMINOPHEN TAB 325 MG TAB PO PRN (19:53)
[2021-04-23] MEDS: PIPERACILLIN-TAZOBACTAM 3.375 GM in SODIUM CHLORIDE 0.9% 100 ML IVPB SCH ×3 (04:21→20:15)
[2021-04-23] MEDS: PANTOPRAZOLE 40 MG TABLET PO SCH (06:18)
[2021-04-23] MEDS: LEVOTHYROXINE 75 MCG TAB PO SCH (06:18)
[2021-04-23] MEDS: IPRATROPIUM-ALBUTEROL 3 ML NEB INHALATION SCH ×3 (09:28→20:39)
--- NOTE | 2021-04-23 09:34 | P.PN ---
Subjective Patient is seen in follow-up for acute kidney injury on chronic kidney disease. Renal function fairly stable the last few days. Hemodynamically stable. Nonoliguric. Vital signs are stable. General: The patient appeared well nourished and normally developed. HEENT: Head exam is unremarkable. LUNGS: Breath sounds decreased. HEART: Regular rhythm. ABDOMEN: Soft, no distention. EXTREMITITES: Trace edema in ankles. Objective - Vital Signs Vital signs: Vital Signs Temp 98.2 F 04/22/21 20:00 Pulse 92 04/23/21 04:00 Resp 18 04/23/21 04:00 BP 104/58 04/23/21 04:00 Pulse Ox 99 04/23/21 04:00 Intake & Output 04/22/21 04/23/21 04/23/21 18:59 06:59 18:59 Intake Total 0 1170 Output Total 400 700 Balance -400 470 Weight 58.967 kg Intake: Intake, IV Titration 200 Amount Piperacillin-Tazobactam 3 200 .375 gm In Sodium Chloride 0.9% 100 ml @ 25 mls/hr IVPB Q8H [facility] Rx#: [id number] Oral 0 970 Output: Urine 400 700 Other: Voiding Method Indwelling Catheter Indwelling Catheter - Labs CBC & Chem 7: 04/18/21 07:11 04/22/21 07:04 Assessment and Plan Plan: Assessment: 1. Acute kidney injury secondary to ATN secondary to hemodynamic instability. Also component of obstructive uropathy. Creatinine 3.23 on admission - stable at 1.97 yesterday. 2. Chronic kidney disease stage IV secondary to nephrosclerosis with baseline creatinines range of 2.5-3. 3. Bradycardia status post pacemaker placement this admission. Resolved. 4. Anemia of chronic kidney disease. On Aranesp. Status post IV iron. 5. History of prostate cancer status post radiation. 6. 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 Urology following. No plans for intervention at this time. 7. Metabolic acidosis secondary to chronic kidney disease maintained on oral b icarb. 8. Mild volume overload. On oral diuretics. Plan: Maintain Bumex. Avoid nephrotoxins. Repeat labs in the morning.
[2021-04-23] MEDS: HEPARIN SODIUM,PORCINE/PF 5,000 UNIT/0.5 ML SYRINGE SQ SCH ×2 (09:43→20:16)
[2021-04-23] MEDS: SODIUM BICARBONATE TAB 650 MG TAB PO SCH ×3 (09:44→20:16)
[2021-04-23] MEDS: DARBEPOETIN ALFA 60 MCG/0.3 ML SYRINGE SQ SCH (09:44)
[2021-04-23] MEDS: FLUCONAZOLE 100 MG TAB PO SCH (09:44)
[2021-04-23] MEDS: AZITHROMYCIN 500 MG TAB PO SCH (09:44)
[2021-04-23] MEDS: TAMSULOSIN 0.4 MG CAP.ER.24H PO SCH (09:44)
[2021-04-23] MEDS: MULTIVITAMINS, THERA 1 EACH TAB PO SCH (09:45)
[2021-04-23] MEDS: AMIODARONE 100 MG TAB PO SCH ×2 (09:45→20:16)
[2021-04-23] MEDS: BUMETANIDE 1 MG TAB PO SCH (09:45)
--- NOTE | 2021-04-23 11:18 | P.PN ---
Subjective Progress Note Date: 04/23/21 Principal diagnosis: bradycardia patient continued to be him with amikacin stable no major events reported by nursing staff patient is at baseline mental status alert and oriented following commands. Kaiser catheter in place. Objective - Vital Signs Vital signs: Vital Signs Temp 97.4 F L 04/23/21 09:40 Pulse 100 04/23/21 09:40 Resp 20 04/23/21 09:40 BP 119/59 04/23/21 09:40 Pulse Ox 96 04/23/21 09:40 Intake & Output 04/22/21 04/23/21 04/23/21 18:59 06:59 18:59 Intake Total 0 1170 Output Total 400 700 Balance -400 470 Weight 58.967 kg Intake: Intake, IV Titration 200 Amount Piperacillin-Tazobactam 3 200 .375 gm In Sodium Chloride 0.9% 100 ml @ 25 mls/hr IVPB Q8H [facility] Rx#: [id number] Oral 0 970 Output: Urine 400 700 Other: Voiding Method Indwelling Catheter Indwelling Catheter Indwelling Catheter - Exam Gen.: in stated age, no acute distress Heart: Normal S1-S2 Lungs: Clear to auscultation bilaterally Abdomen: Soft, no tenderness, positive bowel sounds in all 4 quadrant no guarding or rebound Skin: No new rash Psych: Alert and oriented 3 Neuro: No focal deficit - Labs CBC & Chem 7: 04/18/21 07:11 04/22/21 07:04 Assessment and Plan Assessment: 1. Bradycardia, symptomatic. 2. Recent defibrillator placement on 04/19/2021. 3. Acute kidney injury likely prerenal and related to obstructive uropathy status post Kaiser catheter insertion. 4. Chronic kidney disease stage IV. 5. Acute urinary tract infection and of treatment. 6. Chronic bilateral hydronephrosis secondary to above. 7. Debility and deconditioning. 8. Anemia of chronic disease. 9. Atrial fibrillation, paroxysmal. 10. History of GI bleed. 11. Hypothyroidism. Plan discussed with nursing staff at the bedside where we would like to continue monitoring hemodynamic closely patient still need to be seen by cardiology and we will follow-up with the recommendation regarding current setting consider interrogation for recently installed device and optimize medical therapy. Patient currently on Zestril Zosyn and Zithromax and I would like to continue for the next 24 hours and consider de-escalation based on clinical progress. Continue aggressive IV fluid and encourage oral intake, avoid nephrotoxic medication and report blood work in the morning. Patient is not candidate for a liquids and we will continue with heart rate controlling agents as patient had history of GI bleed in the past. Patient does signs this can benefit and agreement to the current treatment plan. Prognosis remained guarded at this point
[2021-04-23] MEDS ORDERED: FUROSEMIDE 10 MG/ML 2 ML VIAL IV ONE (13:53)
[2021-04-23] MEDS ORDERED: FUROSEMIDE 10 MG/ML 2 ML VIAL ONE (13:55)
[2021-04-23] MEDS ORDERED: BUMETANIDE 0.25 MG/ML 4 ML VIAL IVP STA (14:04)
[2021-04-23] MEDS: MORPHINE SULFATE 4 MG/ML SYRINGE IV PRN (20:16)
[2021-04-24] MEDS: PIPERACILLIN-TAZOBACTAM 3.375 GM in SODIUM CHLORIDE 0.9% 100 ML IVPB SCH ×3 (03:44→20:52)
[2021-04-24] MEDS: LEVOTHYROXINE 75 MCG TAB PO SCH (06:42)
[2021-04-24] MEDS: PANTOPRAZOLE 40 MG TABLET PO SCH (06:42)
[2021-04-24] MEDS: IPRATROPIUM-ALBUTEROL 3 ML NEB INHALATION SCH ×3 (07:27→20:31)
--- NOTE | 2021-04-24 08:25 | P.PN ---
Subjective Progress Note Date: 04/24/21 Hospital course: Patient is a very pleasant 89-year-old male with a past medical history of paroxysmal atrial fibrillation not on anticoagulation due to GI bleeding, hyperlipidemia, hypertension, and CVA. We were initially consulted for this patient on 04/13/21 for bradycardia which resulted in successful pacemaker placement on 04/19/[address] Dunlap. Echocardiogram was completed revealing an EF of 50-55% with moderate to severely enlarged right ventricle, moderate aortic valve sclerosis and mild aortic stenosis. Bradycardia resolved and patient had no further complaints. Chest x-ray completed 04/22/21 revealed continued bilateral patchy airspace opacities similar to previous exam with some improvement along with [id number] layering pleural effusions. We grisel swan signed off of patient on 04/22/21 and were re-consulted on the evening of 04/23/21 for patient's reports of shortness of breath. Upon examination at bedside today patient was alert and oriented to person and place. Confused to time and situation. However he reported feeling "good and even better than okay." He denied experiencing any headache, lightheadedness, dizziness, chest pain, palpitations, or shortness of breath. He remains on Bumex 0.5 mg daily and appears euvolemic showing no signs of fluid overload at this time. Physical exam: Vital signs reviewed and stable. General: Nontoxic, no distress and appears stated age. Derm: Skin warm and dry, normal coloration for ethnicity. Head: Atraumatic, normocephalic and symmetric. Eyes: EOMs intact, no lid lag, and anicteric sclera Mouth: no lip lesions, mucus membranes moist Cardiovascular: regular rate and rhythm with normal S1S2, systolic murmur, positive posterior tibial pulses bilaterally, and cap refill < 2 seconds. No edema. No JVD. Lungs: Respirations even, regular, and unlabored on room air. Lungs CTA bilaterally, no rhonchi, no rales, no wheezing, and no accessory muscle usage. Abdominal: soft, nontender to palpation, no guarding, no appreciable organomegaly Ext: ROM intact. No gross muscle atrophy, no edema, no contractures Neuro: Speech clear, face symmetrical and CN II-XII grossly intact with no noted focal neuro deficits Psych: Alert and oriented to person, place, time, and situation. Appropriate and pleasant affect. Assessment and Plan of Care: Bradycardia resulting in pacemaker placement on 04/19/21 Nonsustained ventricular tachycardia Paroxysmal atrial fibrillation, not on anticoagulation due to history of GI bleeding Hypertension Hyperlipidemia Bilateral pleural effusions Acute kidney injury, nephrology following, improving Metabolic acidosis secondary to chronic kidney disease maintained on oral sodium bicarb Continue current cardiac medication regimen with aspirin, amiodarone, and Bumex. No further inpatient recommendations from a cardiac standpoint. Recommend patient follow up outpatient with Dr. Dunlap upon discharge Cardiology signing off, please reconsult if further needs. Thank you for allowing us to participate in the care of this pleasant patient. Do not hesitate to contact us with questions, please reconsult if further needs. Nurse practitioner note has been reviewed by physician. Signing provider agrees with the documented findings, assessment, and plan of care Objective - Vital Signs Vital signs: Vital Signs Temp 98.2 F 04/24/21 03:48 Pulse 92 04/24/21 03:48 Resp 18 04/24/21 03:48 BP 111/63 04/24/21 03:48 Pulse Ox 96 04/24/21 03:48 Intake & Output 04/23/21 04/24/21 04/24/21 18:59 06:59 18:59 Intake Total 580 150 Output Total 1200 600 Balance -620 -450 Intake: Intake, IV Titration 100 Amount Piperacillin-Tazobactam 3 100 .375 gm In Sodium Chloride 0.9% 100 ml @ 25 mls/hr IVPB Q8H [facility] Rx#: [id number] Oral 480 150 Output: Urine 1200 600 Other: Voiding Method Indwelling Catheter Indwelling Catheter - Labs CBC & Chem 7: 04/18/21 07:11 04/24/21 08:00
[2021-04-24 08:34] LABS: Calcium 9.1 mg/dL (8.4-10.2); Magnesium 1.8 mg/dL (1.6-2.3)
--- NOTE | 2021-04-24 09:04 | P.PN ---
Subjective Patient is seen in follow-up for acute kidney injury on chronic kidney disease. Renal function fairly stable the last few days. Hemodynamically stable. Nonoliguric. No active complaints. Vital signs are stable. General: The patient appeared well nourished and normally developed. HEENT: Head exam is unremarkable. LUNGS: Breath sounds decreased. HEART: Regular rhythm. ABDOMEN: Soft, no distention. EXTREMITITES: No edema. Objective - Vital Signs Vital signs: Vital Signs Temp 98.2 F 04/24/21 03:48 Pulse 92 04/24/21 03:48 Resp 18 04/24/21 03:48 BP 111/63 04/24/21 03:48 Pulse Ox 96 04/24/21 03:48 Intake & Output 04/23/21 04/24/21 04/24/21 18:59 06:59 18:59 Intake Total 580 150 Output Total 1200 600 Balance -620 -450 Intake: Intake, IV Titration 100 Amount Piperacillin-Tazobactam 3 100 .375 gm In Sodium Chloride 0.9% 100 ml @ 25 mls/hr IVPB Q8H [facility] Rx#: [id number] Oral 480 150 Output: Urine 1200 600 Other: Voiding Method Indwelling Catheter Indwelling Catheter - Labs CBC & Chem 7: 04/18/21 07:11 04/24/21 08:00 Labs: Abnormal Lab Results - Last 24 Hours (Table) 04/24/21 Range/Units 08:00 Chloride 113 H (98-107) mmol/L Carbon Dioxide 19 L (22-30) mmol/L BUN 41 H (9-20) mg/dL Creatinine 1.97 H (0.66-1.25) mg/dL Assessment and Plan Plan: Assessment: 1. Acute kidney injury secondary to ATN secondary to hemodynamic instability. Also component of obstructive uropathy. Creatinine 3.23 on admission - stable at 1.97 today. 2. Chronic kidney disease stage IV secondary to nephrosclerosis with baseline creatinines range of 2.5-3. 3. Bradycardia status post pacemaker placement this admission. Resolved. 4. Anemia of chronic kidney disease. On Aranesp. Status post IV iron. 5. History of prostate cancer status post radiation. 6. 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 Urology following. No plans for intervention at this time. 7. Metabolic acidosis secondary to chronic kidney disease maintained on oral bicarb. 8. Mild volume overload. On oral diuretics. Plan: Maintain Bumex. Avoid nephrotoxins. No changes from nephrology standpoint.
[2021-04-24] MEDS: BUMETANIDE 1 MG TAB PO SCH (09:30)
[2021-04-24] MEDS: AZITHROMYCIN 500 MG TAB PO SCH (09:30)
[2021-04-24] MEDS: FLUCONAZOLE 100 MG TAB PO SCH (09:30)
[2021-04-24] MEDS: AMIODARONE 100 MG TAB PO SCH ×2 (09:30→20:52)
[2021-04-24] MEDS: MULTIVITAMINS, THERA 1 EACH TAB PO SCH (09:31)
[2021-04-24] MEDS: HEPARIN SODIUM,PORCINE/PF 5,000 UNIT/0.5 ML SYRINGE SQ SCH ×2 (09:31→20:52)
[2021-04-24] MEDS: TAMSULOSIN 0.4 MG CAP.ER.24H PO SCH (09:31)
[2021-04-24] MEDS: SODIUM BICARBONATE TAB 650 MG TAB PO SCH ×3 (09:31→20:52)
[2021-04-24] MEDS ORDERED: BUMETANIDE 0.25 MG/ML 4 ML VIAL IVP STA (09:49)
--- NOTE | 2021-04-24 10:31 | P.PN ---
Subjective Progress Note Date: 04/24/21 Principal diagnosis: bradycardia patient continued to be him with amikacin stable no major events reported by nursing staff patient is at baseline mental status alert and oriented following commands. Kaiser catheter in place. Objective - Vital Signs Vital signs: Vital Signs Temp 98.4 F 04/24/21 09:25 Pulse 95 04/24/21 09:25 Resp 20 04/24/21 09:25 BP 139/77 04/24/21 09:25 Pulse Ox 91 L 04/24/21 09:25 Intake & Output 04/23/21 04/24/21 04/24/21 18:59 06:59 18:59 Intake Total 580 150 Output Total 1200 600 Balance -620 -450 Intake: Intake, IV Titration 100 Amount Piperacillin-Tazobactam 3 100 .375 gm In Sodium Chloride 0.9% 100 ml @ 25 mls/hr IVPB Q8H [facility] Rx#: [id number] Oral 480 150 Output: Urine 1200 600 Other: Voiding Method Indwelling Catheter Indwelling Catheter # Bowel Movements 1 - Exam Gen.: in stated age, no acute distress Heart: Normal S1-S2 Lungs: Clear to auscultation bilaterally Abdomen: Soft, no tenderness, positive bowel sounds in all 4 quadrant no guarding or rebound Skin: No new rash Psych: Alert and oriented 3 Neuro: No focal deficit - Labs CBC & Chem 7: 04/18/21 07:11 04/24/21 08:00 Labs: Abnormal Lab Results - Last 24 Hours (Table) 04/24/21 Range/Units 08:00 Chloride 113 H (98-107) mmol/L Carbon Dioxide 19 L (22-30) mmol/L BUN 41 H (9-20) mg/dL Creatinine 1.97 H (0.66-1.25) mg/dL Assessment and Plan Assessment: 1. Bradycardia, symptomatic. 2. Recent defibrillator placement on 04/19/2021. 3. Acute kidney injury likely prerenal and related to obstructive uropathy status post Kaiser catheter insertion. 4. Chronic kidney disease stage IV. 5. Acute urinary tract infection and of treatment. 6. Chronic bilateral hydronephrosis secondary to above. 7. Debility and deconditioning. 8. Anemia of chronic disease. 9. Atrial fibrillation, paroxysmal. 10. History of GI bleed. 11. Hypothyroidism. patient continued to be hemodynamically stable with normal finding on nurse monitoring. Patient was evaluated by cardiology who discontinued beta mejia and initiated amiodarone 100 mg twice daily. Patient responded well to Bumex 1 mg IV push 1 and his lung examination revealed improvement in breathing sounds. Plan discussed with nursing staff at the bedside to provide extra dose of Bumex at this point and continue monitoring hemodynamic closely along with electrolytes that I would like to repeat blood work in the morning. Given the patient's improvement in his clinical status I would like to have physical therapy evaluated the patient and preparation for discharge planning over the next 24-48 hours. Plan discussed with nursing staff at the bedside
[2021-04-24] MEDS: MORPHINE SULFATE 4 MG/ML SYRINGE IV PRN (12:26)
[2021-04-25] MEDS: PIPERACILLIN-TAZOBACTAM 3.375 GM in SODIUM CHLORIDE 0.9% 100 ML IVPB SCH ×2 (05:01→11:40)
[2021-04-25] MEDS: LEVOTHYROXINE 75 MCG TAB PO SCH (05:01)
[2021-04-25] MEDS: PANTOPRAZOLE 40 MG TABLET PO SCH (05:01)
[2021-04-25] MEDS ORDERED: ASPIRIN 81 MG PO SCH (09:00)
--- NOTE | 2021-04-25 09:09 | P.PN ---
Subjective Patient is seen in follow-up for acute kidney injury on chronic kidney disease. Renal function fairly stable the last few days. Hemodynamically stable. Nonoliguric. No active complaints. Vital signs are stable. General: The patient appeared well nourished and normally developed. HEENT: Head exam is unremarkable. LUNGS: Breath sounds decreased. HEART: Regular rhythm. ABDOMEN: Soft, no distention. EXTREMITITES: No edema. Objective - Vital Signs Vital signs: Vital Signs Temp 98.3 F 04/25/21 00:00 Pulse 105 H 04/25/21 04:00 Resp 16 04/25/21 04:00 BP 130/70 04/25/21 04:00 Pulse Ox 96 04/25/21 04:00 Intake & Output 04/24/21 04/25/21 04/25/21 18:59 06:59 18:59 Intake Total 0 Output Total 1100 600 0 Balance -1100 -600 0 Intake: Oral 0 Output: Urine 1100 600 0 Stool 0 Urine/Stool Mix 0 Other: Voiding Method Indwelling Catheter Indwelling Catheter # Voids 0 # Bowel Movements 1 0 - Labs CBC & Chem 7: 04/18/21 07:11 04/24/21 08:00 Assessment and Plan Plan: Assessment: 1. Acute kidney injury secondary to ATN secondary to hemodynamic instability. Also component of obstructive uropathy. Creatinine 3.23 on admission - stable at 1.97 yesterday. 2. Chronic kidney disease stage IV secondary to nephrosclerosis with baseline creatinines range of 2.5-3. 3. Bradycardia status post pacemaker placement this admission. Resolved. 4. Anemia of chronic kidney disease. On Aranesp. Status post IV iron. 5. History of prostate cancer status post radiation. 6. 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 Urology following. No plans for intervention at this time. 7. Metabolic acidosis secondary to chronic kidney disease maintained on oral bicarb. Better. 8. Mild volume overload. On oral diuretics. Plan: Maintain Bumex. Avoid nephrotoxins. Continue to monitor renal function and urine output.
[2021-04-25] MEDS: TAMSULOSIN 0.4 MG CAP.ER.24H PO SCH (09:45)
[2021-04-25] MEDS: BUMETANIDE 1 MG TAB PO SCH (09:45)
[2021-04-25] MEDS: HEPARIN SODIUM,PORCINE/PF 5,000 UNIT/0.5 ML SYRINGE SQ SCH (09:45)
[2021-04-25] MEDS: SODIUM BICARBONATE TAB 650 MG TAB PO SCH (09:46)
[2021-04-25] MEDS: AZITHROMYCIN 500 MG TAB PO SCH (09:46)
[2021-04-25] MEDS: MULTIVITAMINS, THERA 1 EACH TAB PO SCH (09:46)
[2021-04-25] MEDS: FLUCONAZOLE 100 MG TAB PO SCH (09:46)
[2021-04-25] MEDS: AMIODARONE 100 MG TAB PO SCH (09:47)
[2021-04-25] MEDS: IPRATROPIUM-ALBUTEROL 3 ML NEB INHALATION SCH ×2 (11:51→11:52)
[2021-04-25 11:56] VITALS: PULSE 100
[2021-04-25 12:38] VITALS: BP 119/59; RESP 16; TEMP 96.4
--- NOTE | 2021-04-25 13:21 | P.DS ---
Providers Date of admission: 04/13/21 01:19 Expected date of discharge: 04/25/21 Attending physician: Ramana Bess Consults: 04/13/21 01:20 Consult Physician Routine Consulting Provider: Nida Villa Consult Reason/Comments: arf Do you want consulting provider notified?: Yes 04/13/21 15:18 Consult Physician Routine Consulting Provider: Gail Godinez Consult Reason/Comments: urosepsis Do you want consulting provider notified?: Yes 04/13/21 15:24 Consult Physician Routine Consulting Provider: Lavell Howard Consult Reason/Comments: hydronephrosis/stones Do you want consulting provider notified?: Yes Primary care physician: [facility] Course: HISTORY OF PRESENT ILLNESS This is an 89-year-old male patient of Dr. Bess and Dr. Dunlap residing at [facility] known to have history of prostate cancer along with obstructive uropathy and recurrent kidney stone with recurrent UTI, chronic hydronephrosis, chronic kidney disease stage IV, paroxysmal atrial fibrillation, history of GI bleed, hypertension, atherosclerotic heart disease, moderate protein calorie malnutrition. Patient was transferred from [facility] to [facility] emergency center on 04/12 due to bradycardia and increased confusion and treated for acute urinary tract infection and acute kidney injury. Patient was inadvertently admitted under Dr. Ramana Tejada by mistake. When family were in contact with [facility] they stated that Dr. Bess is his physician and they wanted the patient's care switched to Dr. Bess. Patient has been seen and followed by cardiology and was on dopamine drip which will be discontinued today, start patient on amiodarone 50 mg daily. Patient is also been started on levothyroxine well admitted for an elevated TSH. Heart rate is now running in the 50s. Echocardiogram revealed EF of 50-55%, moderate aortic sclerosis and mild aortic stenosis, mild MR and mild TR. Family requested that no aggressive treatment be provided and did not want to pursue pacemaker and requested medical management only. Patient has also been seen and followed by nephrology for acute kidney injury secondary to ATN secondary to hemodynamic instability with component of obstructive uropathy. Creatinine on admission was 3.23 and now down to 2.19. Patient is maintained on normal saline at 50 mL per hour. He has also undergoing iron infusions. Dr. Moreira has evaluated the patient for chronic hydronephrosis with no plan for intervention. Patient has Kaiser and a trial of voiding prior to discharge Jocelyn on. Once Kaiser is removed, no need for Kaiser replacement if PVR is less than 300. 04/16 patient examined bedside. He is confused and hard of hearing. Patient continues to have episode of V. tach overnight with heartrate running between 46-51. Cardiology increased to anemia drawn 100 mg twice a day. 04/17 patient examined bedside. Apparently patient's heart rate dropped to the 30s in the night and family was called. Patient family clarify patient's CODE STATUS to be full code. Patient was initiated on dopamine drip with plans for pacemaker tomorrow. Family updated 04/18: Patient denies any new complaints. He is scheduled for pacemaker insertion tomorrow. Heart rate is running in the 80s and 90s, blood pressure 136/73, pulse ox 95% on room air, afebrile Patient is currently on Diflucan for Jocelyn in urine, Kaiser catheter in place. Repeat blood work reveals hemoglobin 8.1, BUN 44 creatinine 1.71. Discharge plan will be to return to [facility] most likely on Sunday. 04/19: Patient underwent dual-chamber permanent pacemaker implantation this morning. He states he is feeling better than he has a long time. Heart rate is in the 60s and 70s, blood pressure 93/57, pulse ox 85-96% on room air. Patient is continued on fluconazole. He is on IV fluids 0.9 normal saline at 50 ML's per hour. Repeat blood work ordered for tomorrow. 04/20: Patient has significant wheezing this morning. Repeat chest x-ray reveals new small to moderate-sized bilateral pleural effusions. Areas of underlying new acute infiltrate cannot be excluded particularly right upper lobe. Correlate clinically. No pneumothorax seen after pacemaker placement. Leads appear satisfactory in position. IV fluids stopped, one dose of IV Lasix followed by daily Lasix 20 mg oral, DuoNeb treatments 3 times daily, ceftriaxone and azithromycin added. Anticipate possible discharge tomorrow. 04/21: Patient continues to have increasing shortness of breath. We will change antibiotics to Zosyn for possible aspiration. Consult for speech therapy will be added for evaluation. Repeat chest x-ray ordered for tomorrow. Patient has been afebrile, heart rate running between 78 and 118, pulse ox 93% on 2 L, blood pressure 144/57. Repeat blood work reveals BUN 41 and creatinine 1.89. Potassium 3.8, CO2 17. Patient has had good urine output. Nephrology is changed IV fluids to L are at 50 ML's per hour. Anticipate probable discharge back to [facility] on Sunday. 04/22: Patient's breathing status is significantly better today. He is on O2 at 2 L nasal cannula with pulse ox of 95%. His been afebrile, heart rate 107, blood pressure 100/51. Repeat blood work revealed BUN 42 and creatinine 1.97. CO2 is 18. Repeat coronavirus PCR which was done for him to go to snf was not detected. This will not need to be repeated on Sunday. Plan is for return to [facility] on Sunday. 04/25: Patient has been afebrile, heart rate 100, blood pressure 119/59, pulse ox 96% on 1-1/2 L nasal cannula. Repeat coronavirus PCR not detected. Patient is seen and followed by nephrology with recommendations to avoid nephrotoxins, maintain Bumex and monitor renal function and output. Patient still has Kaiser catheter in place which we'll plan to discharge with Kaiser and this can be removed at [facility]. Radiology has signed off his Casodex but recommend follow- up with Dr. Dunlap on discharge. Patient will be discharged back to [facility] today in stable condition. DISCHARGE DIAGNOSES 1. Acute bradycardia with episodes of V. tach that is post dual-chamber pacemaker 04/19. 2. Acute kidney injury secondary to ATN secondary to hemodynamic instability with component of obstructive uropathy. 3. Chronic kidney disease stage IV secondary to nephrosclerosis with baseline creatinine of 2. 53. 4. Acute urinary tract infection with urine culture positive for yeast. 5. Chronic bilateral hydronephrosis with history of incomplete bladder emptying. Kaiser catheter in place, plan for trial of voiding before discharge and only replace Kaiser if PVR greater than 300, continue Flomax or 0.4 mg daily. 6. Hypothyroidism. 7. Anemia of chronic kidney disease. 8. Paroxysmal atrial fibrillation. 9. 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 10. History of hypertension. 11. Atherosclerotic heart disease 12. Possible pneumonia and possible aspiration pneumonia. DISCHARGE PLAN Return to [facility] Greater than 35 minutes was utilized and coordinating patient's discharge. Impression and plan of care have been directed as dictated by the signing physician. Tena Silva nurse practitioner acting as scribe for signing ph ysician. Patient Condition at Discharge: Good Plan - Discharge Summary Discharge Rx Participant: No New Discharge Prescriptions: New Amiodarone [Cordarone] 100 mg PO BID #0 tab Ipratropium-Albuterol Nebulize [Duoneb 0.5 mg-3 mg/3 ml Soln] 3 ml INHALATION RT-TID ml Levothyroxine Sodium 25 mcg PO DAILY #30 tablet Bumetanide [BUMEX] 0.5 mg PO DAILY tab Sodium Bicarbonate Tab 650 mg PO TID tab Azithromycin [Zithromax] 500 mg PO DAILY #5 tab Continue Cyanocobalamin [Vitamin B-12] 500 mcg PO BID@0800,2100 Tamsulosin [Flomax] 0.4 mg PO DAILY@0800 Magnesium Oxide 420mg 420 mg PO DAILY@1700 Multivitamins, Thera [Multivitamin (formulary)] 1 tab PO DAILY@0800 [place]-3 Fatty Acids/Fish Oil [Fish Oil 1,000 mg Softgel] 2 cap PO DAILY@0800 Aspirin 81 mg PO DAILY@0800 bisacodyL [Dulcolax] 10 mg RECTAL DAILY PRN PRN Reason: Constipation Sennosides-Docusate Sodium [Senokot-S] 2 tab PO DAILY@0800 Magnesium Hydroxide [Milk of Magnesia Concentrate] 7,200 mg PO DAILY PRN PRN Reason: Constipation Zinc 50 mg PO DAILY@0800 Cranberry Fruit Extract [Cranberry] 500 mg PO DAILY@0800 Acetaminophen Tab [Tylenol] 650 mg PO Q6HR PRN PRN Reason: Fever And/ Or Pain Lactose-Reduced Food [Ensure Plus] 237 ml PO TID@0800,1200,1700 Sodium Zirconium Cyclosilicate [Lokelma] 10 gm PO Q48H Darbepoetin Tez [Aranesp] 60 mcg SQ SA@0800 Discontinued Metoprolol Tartrate [Lopressor] 25 mg PO BID@0800,1700 Flecainide [Tambocor] 50 mg PO BID@0800,2100 Sodium Bicarbonate Tab 650 mg PO BID@0800,2100 Discharge Medication List Cyanocobalamin [Vitamin B-12] 500 mcg PO BID@0800,2100 02/06/20 [History] Tamsulosin [Flomax] 0.4 mg PO DAILY@0800 05/01/19 [History] Magnesium Oxide 420mg 420 mg PO DAILY@1700 03/12/20 [History] Aspirin 81 mg PO DAILY@0809/20/20 [History] Multivitamins, Thera [Multivitamin (formulary)] 1 tab PO DAILY@0809/20/20 [History] [place]-3 Fatty Acids/Fish Oil [Fish Oil 1,000 mg Softgel] 2 cap PO DAILY@0809/20/20 [History] Zinc 50 mg PO DAILY@0809/20/20 [History] Cranberry Fruit Extract [Cranberry] 500 mg PO DAILY@0811/16/20 [History] Acetaminophen Tab [Tylenol] 650 mg PO Q6HR PRN 04/12/21 [History] Darbepoetin Tez [Aranesp] 60 mcg SQ SA@0804/12/21 [History] Lactose-Reduced Food [Ensure Plus] 237 ml PO TID@0800,1200,1700 04/12/21 [History] Magnesium Hydroxide [Milk of Magnesia Concentrate] 7,200 mg PO DAILY PRN 04/12/21 [History] Sennosides-Docusate Sodium [Senokot-S] 2 tab PO DAILY@0804/12/21 [History] Sodium Zirconium Cyclosilicate [Lokelma] 10 gm PO Q48H 04/12/21 [History] bisacodyL [Dulcolax] 10 mg RECTAL DAILY PRN 04/12/21 [History] Amiodarone [Cordarone] 100 mg PO BID #0 tab 04/18/21 [Rx] Azithromycin [Zithromax] 500 mg PO DAILY #5 tab 04/25/21 [Rx] Bumetanide [BUMEX] 0.5 mg PO DAILY tab 04/25/21 [Rx] Ipratropium-Albuterol Nebulize [Duoneb 0.5 mg-3 mg/3 ml Soln] 3 ml INHALATION RT-TID ml 04/25/21 [Rx] Levothyroxine Sodium 25 mcg PO DAILY #30 tablet 04/25/21 [Rx] Sodium Bicarbonate Tab 650 mg PO TID tab 04/25/21 [Rx] Follow up Appointment(s)/Referral(s): Josef Dunlap MD [STAFF PHYSICIAN] - 1 Week Ramana Bess MD [Primary Care Provider] - 1 Week (at [facility]) Discharge Disposition: TRANSFER TO SNF/ECF
== END 2021-04-25 15:01 | DRG 242 ==
LOC: EC 21:55 → 3SCARD 04-13 01:19
PROVIDERS: ADMIT Internal Medicine Geriatric Medicine; ATTEND Internal Medicine Geriatric Medicine
PROC: 3E033XZ Introduction of Vasopressor into Peripheral Vein, Percutaneous Approach (ICD-10-PCS; 2021-04-13)
PROC: 0JH606Z Insertion of Pacemaker, Dual Chamber into Chest Subcutaneous Tissue and Fascia, Open Approach (ICD-10-PCS; principal; 2021-04-19 07:30)
PROC: 02H63JZ Insertion of Pacemaker Lead into Right Atrium, Percutaneous Approach (ICD-10-PCS; principal; 2021-04-19 07:30)
PROC: 02HK3JZ Insertion of Pacemaker Lead into Right Ventricle, Percutaneous Approach (ICD-10-PCS; principal; 2021-04-19 07:30)
DX: R00.1 Bradycardia, unspecified (principal); G93.41 Metabolic encephalopathy; N17.0 Acute kidney failure with tubular necrosis; J69.0 Pneumonitis due to inhalation of food and vomit; E44.0 Moderate protein-calorie malnutrition; E87.2 Acidosis; J90 Pleural effusion, not elsewhere classified; E87.1 Hypo-osmolality and hyponatremia; N13.8 Other obstructive and reflux uropathy; N18.4 Chronic kidney disease, stage 4 (severe); Z68.1 Body mass index [BMI] 19.9 or less, adult; B37.49 Other urogenital candidiasis; N13.2 Hydronephrosis with renal and ureteral calculous obstruction; D63.1 Anemia in chronic kidney disease; I95.9 Hypotension, unspecified; I44.2 Atrioventricular block, complete; I47.2 Ventricular tachycardia; I48.0 Paroxysmal atrial fibrillation; Z20.822 Contact with and (suspected) exposure to COVID-19; N40.1 Benign prostatic hyperplasia with lower urinary tract symptoms; N39.498 Other specified urinary incontinence; R39.14 Feeling of incomplete bladder emptying; R33.8 Other retention of urine; E86.0 Dehydration; I12.9 Hypertensive chronic kidney disease with stage 1 through stage 4 chronic kidney disease, or unspecified chronic kidney disease; E61.1 Iron deficiency; E87.70 Fluid overload, unspecified; I08.3 Combined rheumatic disorders of mitral, aortic and tricuspid valves; E03.9 Hypothyroidism, unspecified; E78.5 Hyperlipidemia, unspecified; I44.0 Atrioventricular block, first degree; I25.10 Atherosclerotic heart disease of native coronary artery without angina pectoris; I45.10 Unspecified right bundle-branch block; I25.2 Old myocardial infarction; K59.00 Constipation, unspecified; G89.29 Other chronic pain; M54.50 Low back pain, unspecified; H91.90 Unspecified hearing loss, unspecified ear; R53.81 Other malaise; Z79.82 Long term (current) use of aspirin; Z79.899 Other long term (current) drug therapy; Z85.46 Personal history of malignant neoplasm of prostate; Z92.3 Personal history of irradiation; Z87.442 Personal history of urinary calculi; Z87.440 Personal history of urinary (tract) infections; Z87.891 Personal history of nicotine dependence; Z95.810 Presence of automatic (implantable) cardiac defibrillator; Z86.14 Personal history of Methicillin resistant Staphylococcus aureus infection; Z86.73 Personal history of transient ischemic attack (TIA), and cerebral infarction without residual deficits; Z87.19 Personal history of other diseases of the digestive system; Z90.49 Acquired absence of other specified parts of digestive tract; Z87.39 Personal history of other diseases of the musculoskeletal system and connective tissue; Z87.438 Personal history of other diseases of male genital organs; Z98.890 Other specified postprocedural states; Y84.2 Radiological procedure and radiotherapy as the cause of abnormal reaction of the patient, or of later complication, without mention of misadventure at the time of the procedure; Z71.3 Dietary counseling and surveillance; Z88.8 Allergy status to other drugs, medicaments and biological substances; Z82.49 Family history of ischemic heart disease and other diseases of the circulatory system
CPT/HCPCS: 33208; 36415; 71045; 71046; 76770; 80048; 80053; 81001; 82728; 83540; 83550; 83605; 83735; 83880; 84100; 84132; 84439; 84443; 84481; 84484; 85025; 85610; 85730; 87086; 87635; 93005; 93306; 94640; 94760; 99291

== ENCOUNTER 2021-04-27 22:04 | Inpatient (IN) | payer MEDICARE, OTHER ==
--- NOTE | 2021-04-27 22:31 | ED ---
Recheck HPI - General Chief Complaint: Recheck/Abnormal Lab/Rx Stated Complaint: Abn labs Time Seen by Provider: 04/27/21 22:17 Source: patient, EMS Mode of arrival: EMS - Related Data Home Medications Medication Instructions Recorded Confirmed Cyanocobalamin [Vitamin B-12] 500 mcg PO BID@0800,2100 05/01/19 04/12/21 Tamsulosin [Flomax] 0.4 mg PO DAILY@0800 05/01/19 04/12/21 Magnesium Oxide 420mg 420 mg PO DAILY@1700 03/12/20 04/12/21 Aspirin 81 mg PO DAILY@0800 09/20/20 04/12/21 Multivitamins, Thera [Multivitamin 1 tab PO DAILY@0800 09/20/20 04/12/21 (formulary)] [place]-3 Fatty Acids/Fish Oil [Fish 2 cap PO DAILY@0800 09/20/20 04/12/21 Oil 1,000 mg Softgel] Zinc 50 mg PO DAILY@0800 09/20/20 04/12/21 Cranberry Fruit Extract [Cranberry] 500 mg PO DAILY@0800 11/16/20 04/12/21 Acetaminophen Tab [Tylenol] 650 mg PO Q6HR PRN 04/12/21 04/12/21 Darbepoetin Tez [Aranesp] 60 mcg SQ SA@0804/12/21 04/12/21 Lactose-Reduced Food [Ensure Plus] 237 ml PO TID@0800,1200,1700 04/12/21 04/12/21 Magnesium Hydroxide [Milk of 7,200 mg PO DAILY PRN 04/12/21 04/12/21 Magnesia Concentrate] Sennosides-Docusate Sodium 2 tab PO DAILY@0800 04/12/21 04/12/21 [Senokot-S] Sodium Zirconium Cyclosilicate 10 gm PO Q48H 04/12/21 04/12/21 [Lokelma] bisacodyL [Dulcolax] 10 mg RECTAL DAILY PRN 04/12/21 04/12/21 Previous Rx's Medication Instructions Recorded Amiodarone [Cordarone] 100 mg PO BID #0 tab 04/18/21 Azithromycin [Zithromax] 500 mg PO DAILY #5 tab 04/25/21 Bumetanide [BUMEX] 0.5 mg PO DAILY tab 04/25/21 Ipratropium-Albuterol Nebulize 3 ml INHALATION RT-TID ml 04/25/21 [Duoneb 0.5 mg-3 mg/3 ml Soln] Levothyroxine Sodium 25 mcg PO DAILY #30 tablet 04/25/21 Sodium Bicarbonate Tab 650 mg PO TID tab 04/25/21 Allergies Allergy/AdvReac Type Severity Reaction Status Date / Time goserelin Allergy Mild "hot Verified 04/27/21 22:22 flashes" furosemide Allergy Unknown Verified 04/27/21 22:22 Review of Systems ROS Statement: Those systems with pertinent positive or pertinent negative responses have been documented in the HPI. ROS Other: All systems not noted in ROS Statement are negative. Past Medical History Past Medical History: Atrial Fibrillation, Cancer, Hyperlipidemia, Hypertension, Prostate Disorder, Renal Disease, Thyroid Disorder Additional Past Medical History / Comment(s): Paroxysmal Afib, prosate cancer with radiation, BPH, CKD stage IV, kidney stones passed on his own and surgically removed, severe bilateral hydronephrosis, UTIs, urine retention, chronic low back pain, hypothyroid, anemia, protein calorie malnutrition, constipation, occasional sinus problems. KALSKAG. History of Any Multi-Drug Resistant Organisms: MRSA Date of last positivie culture/infection: 2017 MDRO Source:: urine? family/pt unsure Past Surgical History: Appendectomy, Hernia Repair, Orthopedic Surgery Additional Past Surgical History / Comment(s): Lithotripsy, hiatal hernia repair, L knee open surgery to "clean it out", colonoscopy, circumcism later in life d/t UTIs. Past Anesthesia/Blood Transfusion Reactions: No Reported Reaction Past Psychological History: No Psychological Hx Reported Smoking Status: Former smoker Past Alcohol Use History: None Reported Past Drug Use History: None Reported - Past Family History Father Family Medical History: Hypertension Additional Family Medical History / Comment(s): Father at age 82 from old age. Mother Additional Family Medical History / Comment(s): Mother at age 82 and was in a coma at the time. Patient is unsure of cause of her or causative coma. Brother(s) Additional Family Medical History / Comment(s): Patient has 1 brother that is . He is not know any of his medical history. Patient does not have any sisters. Patient has 4 daughters and 4 sons with no major medical problems. Course Vital Signs 04/27/21 22:05 Temperature 101.1 F H Pulse Rate 99 Respiratory 22 Rate Blood Pressure 119/60 O2 Sat by Pulse 97 Oximetry Medical Decision Making - EKG Data -: EKG Interpreted by Me EKG shows normal: sinus rhythm, axis (Left axis deviation), intervals (QT prolongation), QRS complexes (Possible old septal infarct), ST-T waves (Possible lateral ischemia) Rate: normal (Rate 95 bpm) Disposition Referrals: Ramana Bess MD [Primary Care Provider] - 1-2 days
[2021-04-27 23:00] LABS: Basophils % (A) 0 %; Eosinophils # (A) 0.2 k/uL (0-0.7); Eosinophils % (A) 3 %; HCT 27.5 % (39.0-53.0); HGB 8.3 gm/dL (13.0-17.5); Hypochromasia Marked; Lymphocytes # (A) 0.7 k/uL (1.0-4.8); Lymphocytes % (A) 8 %; MCH 32.7 pg (25.0-35.0); MCHC 30.3 g/dL (31.0-37.0); Macrocytosis Marked; Mean Platelet Volume 7.8; Monocytes # (A) 0.4 k/uL (0-1.0); Monocytes % (A) 5 %; Neutrophils # (A) 6.5 k/uL (1.3-7.7); Neutrophils % (A) 82 %; Platelet Count 318 k/uL (150-450); RBC 2.55 m/uL (4.30-5.90); RDW 15.9 % (11.5-15.5); WBC 7.9 k/uL (3.8-10.6)
[2021-04-27 23:01] LABS: MCV 107.9 fL (80.0-100.0)
[2021-04-27 23:09] LABS: Appearance,Urine Cloudy (Clear); Bacteria,Urine Rare /hpf; Bilirubin,Urine Negative (Negative); Blood,Urine Moderate (Negative); Color,Urine Yellow; Glucose,Urine (UA) Negative (Negative); Ketones,Urine Negative (Negative); Leukocyte Esterase,Urine Large (Negative); Nitrite,Urine Negative (Negative); Protein,Urine 2+ (Negative); RBC,Urine 67 /hpf (0-5); Specific Gravity,Urine 1.015 (1.001-1.035); Urobilinogen,Urine <2.0 mg/dL (<2.0); WBC,Urine >182 /hpf (0-5)
[2021-04-27 23:26] LABS: Albumin 2.6 g/dL (3.5-5.0); Calcium 8.7 mg/dL (8.4-10.2); Potassium 3.4 mmol/L (3.5-5.1); Total Bilirubin 0.4 mg/dL (0.2-1.3); Total Protein 5.4 g/dL (6.3-8.2)
--- NOTE | 2021-04-27 23:44 | XR ---
EXAMINATION TYPE: XR chest 2V DATE OF EXAM: 04/27/2021 COMPARISON: NONE HISTORY: Fever TECHNIQUE: 2 views FINDINGS: There is some linear consolidation and atelectasis right upper lobe. There is some mild pul monary congestion. There is left axillary pacemaker. There is blunting of the costophrenic angles. IMPRESSION: There is some consolidation and atelectasis right upper lobe with a changing pattern comp ared to last exam. There are mild to moderate bilateral pleural effusions unchanged. Mild pulmonary c ongestion that it appears improved slightly compared to last exam.
[2021-04-28] MEDS ORDERED: PNEUMONIA PROTOCOL UTILIZED 1 EACH MISC PO PRN (02:44)
[2021-04-28] MEDS ORDERED: AZITHROMYCIN 500 MG in SODIUM CHLORIDE 0.9% 250 ML IVPB ONE (03:00)
[2021-04-28] MEDS ORDERED: ACETAMINOPHEN TAB 325 MG TAB PO STA (03:48)
[2021-04-28] MEDS ORDERED: MAGNESIUM HYDROXIDE 2,400 MG/10 ML CUP PO PRN (12:59)
[2021-04-28] MEDS ORDERED: bisacodyL 10 MG SUPP RECTAL PRN (12:59)
[2021-04-28] MEDS ORDERED: POTASSIUM CHLORIDE ER 20 MEQ TAB.ER PO STA (12:59)
[2021-04-28] MEDS ORDERED: NA PHOS,M-B/NA PHOS,DI-BA 133 ML ENEMA RECTAL PRN (12:59)
[2021-04-28] MEDS ORDERED: ACETAMINOPHEN TAB 325 MG TAB PO PRN (12:59)
[2021-04-28] MEDS ORDERED: VANCOMYCIN IV PER PHARMACY 1 EACH MISC MISCELLANE PRN (13:02)
[2021-04-28] MEDS ORDERED: VANCOMYCIN 1,250 MG in SODIUM CHLORIDE 0.9% 250 ML IVPB ONE (14:00)
--- NOTE | 2021-04-28 14:04 | P.HPIM ---
History of Present Illness H&P Date: 04/28/21 HISTORY OF PRESENT ILLNESS This is an 89-year-old male patient of Dr. Bess and Dr. Dunlap residing at [facility] known to have history of prostate cancer along with obstructive uropathy and recurrent kidney stone with recurrent UTI, chronic hydronephrosis, chronic kidney disease stage IV, paroxysmal atrial fibrillation, history of GI bleed, hypertension, atherosclerotic heart disease, moderate protein calorie malnutrition. Patient was recently hospitalized April 13 through April 25 and treated for bradycardia with episodes of V. tach status post dual-chamber p acemaker implantation on April 19, acute kidney injury, possible aspiration pneumonia. Patient was discharged back to [facility] and now returns due to hemoglobin reported of 6.7 at the half-way. Chest x-ray in the ER showed some consolidation and atelectasis right upper lobe. Mild to moderate bilateral pleural effusions unchanged. Mild pulmonary congestion. [facility] consult with speech therapy for modified barium swallow and patient started on Zosyn for possible aspiration pneumonia. REVIEW OF SYSTEMS Constitutional: No fever, no chills, no night sweats. Chronic weight loss with decreased appetitie, reported weakness and fatigue and daytime sleepiness with debility not been able to ambulate and walk. EENT: No headache. No blurred vision or double vision, no loss of vision. Chronic loss of Hearing. No nasal drainage or congestion. No epistaxis. No sore throat. Lungs: No shortness of breath with no cough no wheezes. Dyspnea with exertion and difficulty clearing secretions Cardiovascular: Positive PND orthopnea palpitations and along with lightheadedness. No syncopal episodes. Abdominal: Abdominal discomfort with no nausea no vomiting no constipation, no diarrhea Genitourinary: No reported frequency urgency with history of prostate cancer. Kaiser catheter in place Musculoskeletal: No myalgias. Noted muscle weakness, noted gait dysfunction, no frequent falls. Positive back and neck pain. Integumentary: No wounds, no lesions. No rash or pruritus. No unusual bruising. No change in hair or nails. Neurologic: No aphasia. No facial droop. Noted change in mentation with chronic dementia. No head injury. No headache. No paralysis. No paresthesia. Psychiatric: No depression. No anxiety. No mood swings. Endocrine: No abnormal blood sugars. No weight change. PHYSICAL EXAMINATION Gen: This is elderly frail appearing 89-year-old male. Patient is resting in bed and appears to be comfortable and in no acute distress. HEENT: Head is atraumatic, normocephalic. Pupils equal, round. Sclerae is anicteric. NECK: Supple. No JVD. No lymphadenopathy. No thyromegaly. LUNGS: Decreased breath sound bilaterally, no wheezes, no accessory muscle usage. HEART: Irregular rate and rhythm. Positive systolic murmur with positive S3. ABDOMEN: Soft. Bowel sounds are present. Abdominal tenderness, no rebound or rigidity. Kaiser catheter draining terry urine. Stage II pressure ulcer to coccyx and bilateral heels. EXTREMITIES: No pedal edema. No calf tenderness. NEUROLOGICAL: Patient is awake, alert and oriented to person confusion. Positive generalized weakness or fatigue. ASSESSMENT AND PLAN 1. Possible aspiration pneumonia. Speech therapy for modified barium swallow, patient started on Zosyn and vancomycin. 2. Reported hemoglobin of 6.7 with redraw of 8.3. Appears to be error. No sign of bleeding. 3. Recent hospitalization for Acute bradycardia post dual-chamber pacemaker implantation 04/19. 4. Chronic kidney disease stage IV secondary to nephrosclerosis with baseline creatinine of 2.5. Avoid nephrotoxic agents, continue sodium bicarb 650 mg 3 times daily 5. Chronic bilateral hydronephrosis with history of incomplete bladder emptying. Kaiser catheter in place. Continue Flomax 0.4 mg daily 6. Hyperthyroidism. Patient started on levothyroxine 25 g daily. 7. Anemia of chronic kidney disease. 8. Paroxysmal atrial fibrillation. Continue amiodarone 100 mg twice daily. No anticoagulation due to history of GI bleed. 9. 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 Continue Flomax 0.4 mg daily and Kaiser catheter 10. History of hypertension. 11. Atherosclerotic heart disease. No complaints of chest pain. Continue aspirin 81 mg daily. 12. DVT prophylaxis: Continue SCDs and knee-high BEVERLY hose. 13. GI prophylaxis. Pantoprazole. DISCHARGE PLAN Return to [facility] under the care of Dr. Bess Impression and plan of care have been directed as dictated by the signing physician. Tena Silva nurse practitioner acting as scribe for signing physic fatoumata. Past Medical History Past Medical History: Atrial Fibrillation, Cancer, Hyperlipidemia, Hypertension, Prostate Disorder, Renal Disease, Thyroid Disorder Additional Past Medical History / Comment(s): Paroxysmal Afib, prosate cancer with radiation, BPH, CKD stage IV, kidney stones passed on his own and surgically removed, severe bilateral hydronephrosis, UTIs, urine retention, chronic low back pain, hypothyroid, anemia, protein calorie malnutrition, constipation, occasional sinus problems. CACHIL DEHE. History of Any Multi-Drug Resistant Organisms: MRSA Date of last positivie culture/infection: 2017 MDRO Source:: urine? family/pt unsure Past Surgical History: Appendectomy, Hernia Repair, Orthopedic Surgery Additional Past Surgical History / Comment(s): Lithotripsy, hiatal hernia repair, L knee open surgery to "clean it out", colonoscopy, circumcism later in life d/t UTIs. Past Anesthesia/Blood Transfusion Reactions: No Reported Reaction Past Psychological History: No Psychological Hx Reported Additional Psychological History / Comment(s): Pt resides at [facility]. Smoking Status: Former smoker Past Alcohol Use History: None Reported Additional Past Alcohol Use History / Comment(s): Patient was a smoker one pack per day for 40 years and quit 35 years ago. He denies any alcohol use. Past Drug Use History: None Reported - Past Family History Father Family Medical History: Hypertension Additional Family Medical History / Comment(s): Father at age 82 from old age. Mother Additional Family Medical History / Comment(s): Mother at age 82 and was in a coma at the time. Patient is unsure of cause of her or causative coma. Brother(s) Additional Family Medical History / Comment(s): Patient has 1 brother that is . He is not know any of his medical history. Patient does not have any sisters. Patient has 4 daughters and 4 sons with no major medical problems. Medications and Allergies Home Medications Medication Instructions Recorded Confirmed Type Cyanocobalamin [Vitamin B-12] 500 mcg PO BID@0800,2100 05/01/19 04/27/21 History Tamsulosin [Flomax] 0.4 mg PO DAILY@0800 05/01/19 04/27/21 History Magnesium Oxide 420mg 420 mg PO DAILY@1700 03/12/20 04/27/21 History Aspirin 81 mg PO DAILY@0809/20/20 04/27/21 History Multivitamins, Thera [Multivitamin 1 tab PO DAILY@79909/20/20 04/27/21 History (formulary)] [place]-3 Fatty Acids/Fish Oil [Fish 2 cap PO DAILY@0800 09/20/20 04/27/21 History Oil 1,000 mg Softgel] Zinc 50 mg PO DAILY@0800 09/20/20 04/27/21 History Cranberry Fruit Extract [Cranberry] 500 mg PO DAILY@0800 11/16/20 04/27/21 History Acetaminophen Tab [Tylenol] 650 mg PO Q6HR PRN 04/12/21 04/27/21 History Darbepoetin Tez [Aranesp] 60 mcg SQ SA@0800 04/12/21 04/27/21 History Magnesium Hydroxide [Milk of 7,200 mg PO DAILY PRN 04/12/21 04/27/21 History Magnesia Concentrate] Sennosides-Docusate Sodium 2 tab PO DAILY@0800 04/12/21 04/27/21 History [Senokot-S] Sodium Zirconium Cyclosilicate 10 gm PO Q48H 04/12/21 04/27/21 History [Lokelma] bisacodyL [Dulcolax] 10 mg RECTAL DAILY PRN 04/12/21 04/27/21 History Ipratropium-Albuterol Nebulize 3 ml INHALATION RT-TID ml 04/25/21 04/27/21 Rx [Duoneb 0.5 mg-3 mg/3 ml Soln] Amiodarone [Cordarone] 100 mg PO BID@0800,1700 04/27/21 04/27/21 History Azithromycin [Zithromax] 500 mg PO DAILY@0804/27/21 04/27/21 History Bumetanide [BUMEX] 0.5 mg PO DAILY@0800 04/27/21 04/27/21 History Ensure Enlive 237 ml PO TID@0800,1200,1700 04/27/21 04/27/21 History Levothyroxine Sodium 25 mcg PO DAILY@0600 04/27/21 04/27/21 History Na Phos,M-B/Na Phos,Di-Ba [Fleet 133 ml RECTAL DAILY PRN 04/27/21 04/27/21 History Adult] Sodium Bicarbonate Tab 650 mg PO TID@0800,1200,1700 04/27/21 04/27/21 History Allergies Allergy/AdvReac Type Severity Reaction Status Date / Time goserelin Allergy Mild "hot Verified 04/27/21 22:22 flashes" furosemide Allergy Unknown Verified 04/27/21 22:22 Physical Exam Vitals: Vital Signs Temp Pulse Pulse Resp BP BP Pulse Ox 04/28/21 04:38 98.1 F 93 18 132/63 95 04/28/21 03:51 98.9 F 93 18 124/81 96 04/28/21 02:49 92 18 124/64 94 L 04/27/21 22:05 101.1 F H 99 22 119/60 97 Intake and Output 04/27/21 04/28/21 04/28/21 22:59 06:59 14:59 Intake Total 250 Balance 250 Intake: Intake, IV Titration 250 Amount Azithromycin 500 mg In 250 Sodium Chloride 0.9% 250 ml @ 250 mls/hr IVPB ONCE ONE Rx#:[id number] Other: Voiding Method Indwelling Catheter # Bowel Movements 3 Weight 65.771 kg 65.771 kg Results CBC & Chem 7: 04/27/21 22:43 04/27/21 22:43 Labs: Abnormal Lab Results - Last 24 Hours (Table) 04/27/21 04/27/21 04/27/21 Range/Units 22:43 22:43 22:46 RBC 2.55 L (4.30-5.90) m/uL Hgb 8.3 L (13.0-17.5) gm/dL Hct 27.5 L (39.0-53.0) % MCV 107.9 H (80.0-100.0) fL MCHC 30.3 L (31.0-37.0) g/dL RDW 15.9 H (11.5-15.5) % Lymphocytes # 0.7 L (1.0-4.8) k/uL Macrocytosis Marked A Potassium 3.4 L (3.5-5.1) mmol/L Carbon Dioxide 20 L (22-30) mmol/L BUN 34 H (9-20) mg/dL Creatinine 1.94 H (0.66-1.25) mg/dL Glucose 156 H (74-99) mg/dL Total Protein 5.4 L (6.3-8.2) g/dL Albumin 2.6 L (3.5-5.0) g/dL Urine Protein 2+ H (Negative) Urine Blood Moderate H (Negative) Ur Leukocyte Esterase Large H (Negative) Urine RBC 67 H (0-5) /hpf Urine WBC >182 H (0-5) /hpf Urine WBC Clumps Many H (None) /hpf Urine Bacteria Rare H (None) /hpf Thrombosis Risk Factor Assmnt - Choose All That Apply Any of the Below Risk Factors Present?: No Other Risk Factors: No Each Risk Factor Represents 3 Points: Age 75 years or older Other congenital or acquired thrombophilia - If yes, enter type in comment: No Thrombosis Risk Factor Assessment Total Risk Factor Score: 3 Thrombosis Risk Factor Assessment Level: Very Low Risk
[2021-04-28] MEDS: IPRATROPIUM-ALBUTEROL 3 ML NEB INHALATION SCH ×2 (16:23→20:04)
[2021-04-28] MEDS ORDERED: MAGNESIUM OXIDE 400 MG TAB PO SCH (17:00)
[2021-04-28] MEDS ORDERED: NON FORMULARY DRUG (Ensure Enlive 237 ML) PO SCH (17:00)
[2021-04-28] MEDS: PIPERACILLIN-TAZOBACTAM 3.375 GM in SODIUM CHLORIDE 0.9% 100 ML IVPB SCH (17:03)
[2021-04-28] MEDS: SODIUM BICARBONATE TAB 650 MG TAB PO SCH (17:05)
[2021-04-28] MEDS: AMIODARONE 100 MG TAB PO SCH (17:05)
[2021-04-28 21:32] VITALS: RESP 16
[2021-04-29] MEDS: PIPERACILLIN-TAZOBACTAM 3.375 GM in SODIUM CHLORIDE 0.9% 100 ML IVPB SCH ×2 (00:08→08:08)
[2021-04-29 03:43] VITALS: TEMP 98.2
[2021-04-29] MEDS ORDERED: LEVOTHYROXINE 25 MCG TAB PO SCH (06:00)
[2021-04-29] MEDS: IPRATROPIUM-ALBUTEROL 3 ML NEB INHALATION SCH ×2 (07:25→12:02)
[2021-04-29] MEDS ORDERED: PANTOPRAZOLE 40 MG TABLET PO SCH (07:30)
[2021-04-29] MEDS ORDERED: BUMETANIDE 1 MG TAB PO SCH (08:00)
[2021-04-29] MEDS ORDERED: NON FORMULARY DRUG (Omega-3 Fatty Acids/Fish Oil [Fish Oil 1,000 Mg Softgel] 1 EACH Capsul PO SCH (08:00)
[2021-04-29] MEDS ORDERED: ASPIRIN 81 MG PO SCH (08:00)
[2021-04-29] MEDS ORDERED: ZINC SULFATE 220 MG CAP PO SCH (08:00)
[2021-04-29] MEDS ORDERED: SENNOSIDES-DOCUSATE SODIUM 1 EACH TAB PO SCH (08:00)
[2021-04-29] MEDS ORDERED: MULTIVITAMINS, THERA 1 EACH TAB PO SCH (08:00)
[2021-04-29] MEDS ORDERED: TAMSULOSIN 0.4 MG CAP.ER.24H PO SCH (08:00)
[2021-04-29] MEDS: SODIUM BICARBONATE TAB 650 MG TAB PO SCH (08:07)
[2021-04-29] MEDS: AMIODARONE 100 MG TAB PO SCH (08:07)
[2021-04-29 08:11] VITALS: BP 108/53
[2021-04-29] MEDS ORDERED: AZITHROMYCIN 500 MG TAB PO SCH (09:00)
--- NOTE | 2021-04-29 10:26 | P.DS ---
Providers Date of admission: 04/28/21 02:44 Expected date of discharge: 04/29/21 Attending physician: Ramana Bess Primary care physician: Ramana Bess [facility] Course: HISTORY OF PRESENT ILLNESS This is an 89-year-old male patient of Dr. Bess and Dr. Dunlap residing at [facility] known to have history of prostate cancer along with obstructive uropathy and recurrent kidney stone with recurrent UTI, chronic hydronephrosis, chronic kidney disease stage IV, paroxysmal atrial fibrillation, history of GI bleed, hypertension, atherosclerotic heart disease, moderate protein calorie malnutrition. Patient was recently hospitalized April 13 through April 25 and treated for bradycardia with episodes of V. tach status post dual-chamber pacemaker implantation on April 19, acute kidney injury, possible aspiration pneumonia. Patient was discharged back to [facility] and now returns due to hemoglobin reported of 6.7 [facility] [place] [facility]. Chest x-ray in the ER showed some consolidation and atelectasis right upper lobe. Mild to moderate bilateral pleural effusions unchanged. Mild pulmonary congestion. [facility] consult with speech therapy for modified barium swallow and patient started on Zosyn for possible aspiration pneumonia. 2/4: Patient has been seen by speech therapy and oral transit was within normal limits with altered bolus types. No overt signs and symptoms of aspiration and recommendations were for regular diet and liquids. Patient subsequently underwent modified barium swallow which found very minimal aspiration with chin tuck and recommended throat clearing, regular diet and thin liquids. Patient has been afebrile, heart rate 101, blood pressure 108/53, pulse ox 90% on 2 L nasal cannula. Patient will be discharged back to [facility] today in stable co ndition. DISCHARGF DIAGNOSES 1. Possible aspiration pneumonia. 2. Reported hemoglobin of 6.7 with redraw of 8.3. Appears to be error. No sign of bleeding. 3. Recent hospitalization for Acute bradycardia post dual-chamber pacemaker implantation 04/19. 4. Chronic kidney disease stage IV secondary to nephrosclerosis with baseline creatinine of 2.5. 5. Chronic bilateral hydronephrosis with history of incomplete bladder emptying. 6. Hyperthyroidism. 7. Anemia of chronic kidney disease. 8. Paroxysmal atrial fibrillation. 9. 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 10. History of hypertension. 11. Atherosclerotic heart disease. DISCHARGE PLAN Return to [facility] under the care of Dr. Shahriar Greater than 35 minutes was utilized and coordinating patient's discharge. Impression and plan of care have been directed as dictated by the signing physician. Tena Silva nurse practitioner acting as scribe for signing physician. Patient Condition at Discharge: Good Plan - Discharge Summary Discharge Rx Participant: Yes New Discharge Prescriptions: New Amoxicillin/Potassium Clav [Augmentin 500-125 Tablet] 1 tab PO Q12HR 7 Days #14 tab Continue Cyanocobalamin [Vitamin B-12] 500 mcg PO BID@0800,2100 Tamsulosin [Flomax] 0.4 mg PO DAILY@0800 Magnesium Oxide 420mg 420 mg PO DAILY@1700 Multivitamins, Thera [Multivitamin (formulary)] 1 tab PO DAILY@0800 [place]-3 Fatty Acids/Fish Oil [Fish Oil 1,000 mg Softgel] 2 cap PO DAILY@0800 Aspirin 81 mg PO DAILY@0800 bisacodyL [Dulcolax] 10 mg RECTAL DAILY PRN PRN Reason: Constipation Sennosides-Docusate Sodium [Senokot-S] 2 tab PO DAILY@0800 Magnesium Hydroxide [Milk of Magnesia Concentrate] 7,200 mg PO DAILY PRN PRN Reason: Constipation Ipratropium-Albuterol Nebulize [Duoneb 0.5 mg-3 mg/3 ml Soln] 3 ml INHALATION RT-TID ml Amiodarone [Cordarone] 100 mg PO BID@0800,1700 Zinc 50 mg PO DAILY@0800 Cranberry Fruit Extract [Cranberry] 500 mg PO DAILY@0800 Acetaminophen Tab [Tylenol] 650 mg PO Q6HR PRN PRN Reason: Fever And/ Or Pain Sodium Zirconium Cyclosilicate [Lokelma] 10 gm PO Q48H Darbepoetin Tez [Aranesp] 60 mcg SQ SA@0800 Na Phos,M-B/Na Phos,Di-Ba [Fleet Adult] 133 ml RECTAL DAILY PRN PRN Reason: Constipation Ensure Enlive 237 ml PO TID@0800,1200,1700 Sodium Bicarbonate Tab 650 mg PO TID@0800,1200,1700 Levothyroxine Sodium 25 mcg PO DAILY@0600 Bumetanide [BUMEX] 0.5 mg PO DAILY@0800 Discontinued Azithromycin [Zithromax] 500 mg PO DAILY@0800 Discharge Medication List Cyanocobalamin [Vitamin B-12] 500 mcg PO BID@0800,2100 05/01/19 [History] Tamsulosin [Flomax] 0.4 mg PO DAILY@0800 05/01/19 [History] Magnesium Oxide 420mg 420 mg PO DAILY@1700 03/12/20 [History] Aspirin 81 mg PO DAILY@0800 09/20/20 [History] Multivitamins, Thera [Multivitamin (formulary)] 1 tab PO DAILY@79909/20/20 [History] [place]-3 Fatty Acids/Fish Oil [Fish Oil 1,000 mg Softgel] 2 cap PO DAILY@08 [History] Zinc 50 mg PO DAILY@79909/20/20 [History] Cranberry Fruit Extract [Cranberry] 500 mg PO DAILY@0811/16/20 [History] Acetaminophen Tab [Tylenol] 650 mg PO Q6HR PRN 04/12/21 [History] Darbepoetin Tez [Aranesp] 60 mcg SQ SA@79904/12/21 [History] Magnesium Hydroxide [Milk of Magnesia Concentrate] 7,200 mg PO DAILY PRN 04/12/21 [History] Sennosides-Docusate Sodium [Senokot-S] 2 tab PO DAILY@0804/12/21 [History] Sodium Zirconium Cyclosilicate [Lokelma] 10 gm PO Q48H 04/12/21 [History] bisacodyL [Dulcolax] 10 mg RECTAL DAILY PRN 04/12/21 [History] Ipratropium-Albuterol Nebulize [Duoneb 0.5 mg-3 mg/3 ml Soln] 3 ml INHALATION RT-TID ml 04/25/21 [Rx] Amiodarone [Cordarone] 100 mg PO BID@0800,1700 04/27/21 [History] Bumetanide [BUMEX] 0.5 mg PO DAILY@0804/27/21 [History] Ensure Enlive 237 ml PO TID@0800,1200,1700 04/27/21 [History] Levothyroxine Sodium 25 mcg PO DAILY@0600 04/27/21 [History] Na Phos,M-B/Na Phos,Di-Ba [Fleet Adult] 133 ml RECTAL DAILY PRN 04/27/21 [H istory] Sodium Bicarbonate Tab 650 mg PO TID@0800,1200,1700 04/27/21 [History] Amoxicillin/Potassium Clav [Augmentin 500-125 Tablet] 1 tab PO Q12HR 7 Days #14 tab 04/29/21 [Rx] Follow up Appointment(s)/Referral(s): Ramana Bess MD [Primary Care Provider] - 1 Week (at [facility]) Patient Instructions/Handouts: Amoxicillin/Clavulanate Potassium (By mouth), Dehydration (DC) Discharge Disposition: TRANSFER TO SNF/ECF
--- NOTE | 2021-04-29 11:00 | FL ---
EXAMINATION TYPE: FL barium swallow w video DATE OF EXAM: 04/29/2021 CLINICAL HISTORY: 89-year-old male aspiration pneumonia, assess for aspiration, Dysphagia. TECHNIQUE: Deglutition study is performed utilizing thin liquid barium, honey and nectar thick liqui d barium, barium thick applesauce, and barium coated cracker. COMPARISON: None. Total fluoroscopy time: 2 minutes 2 seconds. Total images: None. Real-time fluoroscopy support was provided to speech pathology. FINDINGS: Patient is edentulous. The oral and pharyngeal phases show satisfactory initiation and propagation with all modalities teste d. Eventual mastication is seen with solid modalities tested. There is penetration with thin, nectar, and honey liquid consistencies. There is trace aspiration and delayed cough with thin liquids during chin tuck maneuver. Cervical spondylosis. Intermittent CP contraction visualized. IMPRESSION: Penetration with all liquid consistencies. Trace aspiration with thin liquids during chin tuck maneuv er. Please refer to speech therapist notes for further details if necessary.
[2021-04-29 12:13] VITALS: PULSE 97
[2021-04-29] MEDS ORDERED: VANCOMYCIN 1,250 MG in SODIUM CHLORIDE 0.9% 250 ML IVPB ONE (14:00)
[2021-04-30] MEDS ORDERED: DARBEPOETIN ALFA 60 MCG/0.3 ML SYRINGE SQ SCH (08:00)
== END 2021-04-29 13:30 | DRG 178 ==
LOC: EC 22:04 → 5NMEDONC 04-28 02:44
PROVIDERS: ADMIT Internal Medicine Geriatric Medicine; ATTEND Internal Medicine Geriatric Medicine
DX: J69.0 Pneumonitis due to inhalation of food and vomit (principal); N18.4 Chronic kidney disease, stage 4 (severe); N13.30 Unspecified hydronephrosis; E44.0 Moderate protein-calorie malnutrition; J90 Pleural effusion, not elsewhere classified; R79.9 Abnormal finding of blood chemistry, unspecified; I12.9 Hypertensive chronic kidney disease with stage 1 through stage 4 chronic kidney disease, or unspecified chronic kidney disease; I48.0 Paroxysmal atrial fibrillation; I25.10 Atherosclerotic heart disease of native coronary artery without angina pectoris; D63.1 Anemia in chronic kidney disease; E03.9 Hypothyroidism, unspecified; N40.1 Benign prostatic hyperplasia with lower urinary tract symptoms; L89.152 Pressure ulcer of sacral region, stage 2; L89.622 Pressure ulcer of left heel, stage 2; L89.612 Pressure ulcer of right heel, stage 2; E78.5 Hyperlipidemia, unspecified; R33.8 Other retention of urine; H91.90 Unspecified hearing loss, unspecified ear; Z20.822 Contact with and (suspected) exposure to COVID-19; Z85.46 Personal history of malignant neoplasm of prostate; Z87.19 Personal history of other diseases of the digestive system; Z86.14 Personal history of Methicillin resistant Staphylococcus aureus infection; Z87.442 Personal history of urinary calculi; Z68.20 Body mass index [BMI] 20.0-20.9, adult; Z87.440 Personal history of urinary (tract) infections; Z79.82 Long term (current) use of aspirin; Z79.890 Hormone replacement therapy; Z79.899 Other long term (current) drug therapy; Z95.0 Presence of cardiac pacemaker; Z87.891 Personal history of nicotine dependence; Z82.49 Family history of ischemic heart disease and other diseases of the circulatory system
CPT/HCPCS: 36415; 71046; 74230; 80053; 81001; 85025; 86850; 86900; 86901; 87040; 87635; 93005; 94640; 94760; 99285